=== PATIENT | female | born 1935 | race Caucasian/White ===

== ENCOUNTER 2020-06-20 10:24 | Outpatient (CLI) | payer MEDICARE, BC, SELFPAY ==
--- NOTE | ~2020-06-20 | MM_ITS ---
EXAMINATION: MM screening mathew BI w dominique HISTORY: Screening mammogram TECHNIQUE: Craniocaudal and mediolateral oblique 3-D tomosynthesis images were obtained and synthetic 2-D images were generated. CAD analysis was submitted and interpreted. COMPARISON: No prior mammogram is available for comparison at this institution. BREAST PARENCHYMAL COMPOSITION: There are scattered areas of fibroglandular density. FINDINGS: There is no evidence of suspicious mass, calcification, or architectural distortion to sugg est malignancy in either breast. IMPRESSION: 1. No mammographic evidence of malignancy. 2. Recommend routine screening mammography while the patient remains in good health. BI-RADS Category 1: Negative Reviewed, dictated and finalized at location A. IMPRESSION: 1. No mammographic evidence of malignancy. 2. Recommend routine screening mammography while the patient remains in good he alth. BI-RADS Category 1: Negative
== END 2020-06-20 10:25 | disposition home or self-care (01) ==
LOC: ANHIMG 10:28
PROVIDERS: PCP Internal Medicine; Visit Provider Internal Medicine
DX: Z12.31 Encounter for screening mammogram for malignant neoplasm of breast (principal)
CPT/HCPCS: 77063; 77067

== ENCOUNTER 2021-09-21 10:21 | Outpatient (CLI) | payer MEDICARE, BC, SELFPAY ==
--- NOTE | ~2021-09-21 | MM_ITS ---
EXAMINATION: MM screening mathew BI w dominique HISTORY: Screening mammogram TECHNIQUE: Craniocaudal and mediolateral oblique 3-D tomosynthesis images were obtained and synthetic 2-D images were generated. CAD analysis was submitted and interpreted. COMPARISON: 06/20/2020 BREAST PARENCHYMAL COMPOSITION: There are scattered areas of fibroglandular density. FINDINGS: There is no evidence of suspicious mass, calcification, or architectural distortion to sugg est malignancy in either breast. There has been no suspicious interval change. IMPRESSION: 1. No mammographic evidence of malignancy. 2. Recommend routine screening mammography while the patient remains in good health. BI-RADS Category 2: Benign finding(s). Reviewed, dictated and finalized at location A. [employer] IMPRESSION: 1. No mammographic evidence of malignancy. 2. Recommend routine screening mammography while the patient remains in good he alth. BI-RADS Category 2: Benign finding(s).
== END 2021-09-21 10:22 | disposition home or self-care (01) ==
LOC: ANHIMG 10:23
PROVIDERS: PCP Internal Medicine; Visit Provider Internal Medicine
DX: Z12.31 Encounter for screening mammogram for malignant neoplasm of breast (principal)
CPT/HCPCS: 77063; 77067

== ENCOUNTER 2022-06-28 08:56 | Emergency (ER) | payer MEDICARE, BC, SELFPAY ==
[2022-06-28] VITALS (9 sets, daily range): BP systolic 125–140; BP diastolic 65–81; PULSE 77–102; RESP 14–20; TEMP 36.6; O2SAT 96–100
--- NOTE | ~2022-06-28 | XR_ITS ---
EXAMINATION: XR chest 2V DATE: 06/28/2022 10:21 INDICATION: Heart palpitations TECHNIQUE: AP and lateral views of the chest are obtained. COMPARISON: None available FINDINGS: There is scarring in the lung apices. The lungs are free of acute opacities. No pleural eff usion or pneumothorax. The cardiomediastinal silhouette is normal. There is mild thoracic spondylosis . IMPRESSION: 1. No acute cardiopulmonary abnormality. Reviewed, dictated and finalized at location A.
--- NOTE | 2022-06-28 09:01 | ECG_ITS ---
Measurements Intervals [place] Rate: 100 P: 76 [place]: 136 QRS: -50 QRSD: 139 T: 95 QT: 366 QTc: 472 Interpretive Statements SINUS TACHYCARDIA LEFT AXIS DEVIATION [QRS AXIS < -30] LEFT BUNDLE BRANCH BLOCK [120+ ms QRS DURATION, 80+ ms Q/S IN V1/V2, 85+ ms R IN I/aVL/V5/V6] NO PREVIOUS ECG AVAILABLE FOR COMPARISON Electronically Signed On 06-29-2022 13:02:36 CDT by Mecca Boyer M.D.
--- NOTE | 2022-06-28 09:14 | ED.ARRPALP ---
HPI - Arrhythmia/Palpitations General Chief Complaint: Arrhythmia/Palpitations Stated Complaint: HEART PALPATATIONS Time Seen by Provider: 06/28/22 09:09 Source: patient Mode of arrival: ambulatory Limitations: no limitations History of Present Illness HPI narrative: Patient is an 86-year-old female presents the ED with palpitations. Patient reports she woke up this morning around 715 and typically takes her blood pressures in the morning. Her BP was elevated this morning with her diastolic BP being over 100. She also noted her pulse to be in the 150s at that time. She checked her HR several more times and noted it ranged from 80-110s. She states she could feel her heart racing, but denied any other symptoms. Denies chest pain, difficulty breathing, cough, cold symptoms, fevers, abdominal pain, nausea, vomiting, dizziness, lightheadedness, BLE pain or edema. Patient states she feels fine currently. Patient sees Dr. Junior, cardiology with [facility]. She states she wore a Holter monitor in November of this year for 2 weeks which was unremarkable. Patient is on Eliquis BID for AFIB. Related Data Allergies Allergy/AdvReac Type Severity Reaction Status Date / Time Sulfa (Sulfonamide AdvReac Swelling Verified 06/28/22 09:07 Antibiotics) of Lip/Tongue/Throat Review of Systems Review of Systems: CONSTITUTIONAL: Denies fever, chills, or sweats. ENT: Denies rhinorrhea, congestion, sore throat. CARDIOVASCULAR: Reports racing palpitations. Denies chest pain, BLE edema. RESPIRATORY: Denies cough or dyspnea. GASTROINTESTINAL: Denies abdominal pain, nausea, vomiting. MUSCULOSKELETAL: Denies back pain, joint pain, BLE pain. NEUROLOGIC: Denies dizziness, lightheadedness, headache, numbness, or weakness. All systems reviewed & are unremarkable except as noted in HPI and below PMFSH Past Medical History Medical History (Updated 06/28/22 @ 13:25 by Alicia Murguia PA-C) History of pneumonia HLD (hyperlipidemia) HTN (hypertension) LBBB (left bundle branch block) Lymphoma Paroxysmal A-fib Surgical History Surgical History (Updated 06/28/22 @ 10:25 by Alicia Murguia PA-C) History of lymph node biopsy Social History Social History (Updated 06/28/22 @ 10:25 by Alicia Murguia PA-C) Smoking status: Never smoker Exam Narrative: GENERAL: Well appearing, well-nourished, non-toxic, in no acute distress. HEAD: Normocephalic, atraumatic. NECK: Supple. No adenopathy, no masses. RESPIRATORY: Airway patent, respirations nonlabored. No distress. Clear to auscultation bilaterally, no rales, rhonchi, wheezing. CARDIOVASCULAR: Regular rate and rhythm without murmurs, rubs, or gallops. Peripheral pulses 2+ and equal bilaterally. ABDOMINAL: Soft, nontender, nondistended, no hepatosplenomegaly. Normoactive BS. MUSCULOSKELETAL: Moves all extremities. Strength/ROM intact without gross deformities or TTP. No edema. No calf tenderness. SKIN: Warm, dry, normal color. No rashes. NEURO: A&O X3. Speech clear. Cranial nerves II-XII grossly intact. Steady gait. No ataxic movements. PSYCHIATRIC: Appropriate mood and affect. Normal interaction. Course Consultations Consultation #1: Discussed case w/ Dr. Garzon, cardiology educational institution curator for Dr. Junior. Per patient's records, she has Hx of paroxysmal AFIB. Recommended increasing Metoprolol to 25mg daily. Follow in office. Date: 06/28/22 Time: 11:54 Vital Signs Vital signs: Vital Signs Temperature 97.8 F 06/28/22 09:01 Pulse Rate 98 06/28/22 09:01 Respiratory Rate 18 06/28/22 09:01 Blood Pressure 137/81 06/28/22 09:01 Pulse Oximetry 98 06/28/22 09:01 Oxygen Delivery Room Air 06/28/22 09:01 Temperature 97.8 F 06/28/22 09:01 Pulse Rate 77 06/28/22 14:44 Respiratory Rate 16 06/28/22 14:44 Blood Pressure 140/65 06/28/22 14:44 Pulse Oximetry 100 06/28/22 14:44 Oxygen Delivery Room Air 06/28/22 09:01 ANGELA - Ar
[2022-06-28 09:25] LABS: Basophils Percent Auto 0.7 % (0.2-1.2); Eosinophils Absolute Auto 0.1 K/mm3 (0-0.3); Eosinophils Percent Auto 1.5 % (0-4.4); Hemoglobin 13.6 g/dL (12.0-15.0); Immature Granulocyte Absolute 0.01 K/mm3 (0.00-0.031); Immature Granulocyte Percent A 0.2 % (0-0.5); Lymphocytes Absolute Auto 1.67 K/mm3 (0.9-3.2); Lymphocytes Percent Auto 28.1 % (18.3-44.2); Mean Corpuscular HGB Conc 33.2 g/dl (32-36); Mean Corpuscular Hemoglobin 31.3 pg (26-34); Mean Corpuscular Volume 94.5 fl (80-100); Mean Platelet Volume 9.4 fl (7.4-10.4); Monocytes Absolute Auto 0.7 K/mm3 (0.1-0.6); Monocytes Percent Auto 10.9 % (2.6-8.5); Neutrophils Absolute Auto 3.5 K/mm3 (1.3-6.7); Neutrophils Percent Auto 58.6 % (45.5-73.1); Platelet Count Result 144 k/mm3 (150-375); Red Blood Count 4.34 M/mm3 (4.2-5.4); Red Cell Distribution Width 13.4 % (11.5-14.5); White Blood Count 5.9 K/mm3 (4.5-10.0)
[2022-06-28 09:34] LABS: Alanine Aminotransferase 21 U/L (6-35); Albumin Level 3.9 g/dL (3.5-5.1); Alkaline Phosphatase 77 U/L (38-126); Anion Gap 10 mmol/L (8-16); Aspartate Amino Transferase 27 U/L (14-36); Bilirubin,Total 0.6 mg/dL (0.2-1.3); Blood Urea Nitrogen 14 mg/dL (7-17); Calcium 8.9 mg/dL (8.4-10.2); Carbon Dioxide 27 mmol/L (22-30); Chloride 103 mmol/L (98-107); Estimated CRCL calculation 46 ml/min; Estimated Glomerular Filt Rate > 60; Glucose 101 mg/dL (65-110); Lipase 132 U/L (23-300); Sodium 140 mmol/L (137-145)
[2022-06-28 09:35] LABS: Magnesium 1.8 mg/dL (1.6-2.3)
[2022-06-28 09:44] LABS: INR 1.1; Prothrombin Time 13.9 Seconds (11.1-14.7)
[2022-06-28 09:45] LABS: Partial Thromboplastin Time 26.6 SECONDS (22.3-36.8); Troponin I 0.013 ng/mL (0.000-0.034)
[2022-06-28 13:06] LABS: Troponin I 0.014 ng/mL (0.000-0.034)
[2022-06-28] MEDS: METOPROLOL SUCCINATE EXT REL 12.5 MG TABCR PO (13:13)
== END 2022-06-28 14:45 | disposition home or self-care (01) ==
PROVIDERS: Physician Assistant; Emergency Provider Emergency Medicine; PCP Internal Medicine
DX: R00.2 Palpitations (principal); I48.0 Paroxysmal atrial fibrillation; I10 Essential (primary) hypertension; E78.5 Hyperlipidemia, unspecified; I44.7 Left bundle-branch block, unspecified; Z79.01 Long term (current) use of anticoagulants; Z85.72 Personal history of non-Hodgkin lymphomas
CPT/HCPCS: 36415; 71046; 80053; 83690; 83735; 84484; 85025; 85610; 85730; 93005; 99284; A9270

== ENCOUNTER 2023-03-01 11:41 | Emergency (ER) | payer MEDICARE, BC, SELFPAY ==
[2023-03-01] VITALS (17 sets, daily range): BP systolic 155–184; BP diastolic 71–127; PULSE 58–77; RESP 10–20; TEMP 36.6; O2SAT 91–100
--- NOTE | ~2023-03-01 | XR_ITS ---
XR chest 1V portable 03/01/2023 13:29 Indication: Vertigo and lightheadedness Procedure: AP portable chest Comparison: 06/28/2022 Findings: Heart size normal. No focal air space disease, pulmonary edema, pleural effusion or suspect ed pneumothorax. No acute osseous abnormality. Impression: 1: No acute cardiopulmonary disease. Reviewed, dictated and finalized at location L. Impression: 1: No acute cardiopulmonary disease.
--- NOTE | ~2023-03-01 | CT_ITS ---
EXAMINATION: CTA brain carotid DATE: 03/01/2023 14:33 INDICATION: Vertigo. Dizziness. TECHNIQUE: Computed tomographic angiography (CTA) of the head was performed without and with 100 mL O mnipaque-350 intravenous contrast. CTA of the neck was performed with intravenous contrast. Automated exposure control and iterative reconstruction technique were employed. The dose-length product was 1 783.29 mGy-cm. Maximum intensity projection and volume rendered 3D-reconstructions were created by brittany guadalupe technologist on a separate workstation. COMPARISON: None. FINDINGS: HEAD CTA: There is no intracranial hemorrhage, acute infarction, or abnormal intracranial mass lesion . The cerebellar tonsils extend 8 mm inferior to foramen magnum, consistent with Chiari I malformatio n. There are scattered areas of low attenuation in the cerebral white matter, which is within normal limits for the patient's age. The ventricles are normal in size. There is mild mucosal thickening in the paranasal sinuses. The mastoid air cells are normal. There are likely changes of ocular lens repl acement surgeries. The vertebral arteries are codominant. There is no significant stenosis of basilar artery or the posterior cerebral arteries. There is no significant stenosis of the intracranial inte rnal carotid arteries or anterior or middle cerebral arteries. Anterior communicating artery is kenya l. The posterior communicating arteries are normal. There is no aneurysm. NECK CTA: There is mild scarring at the lung apices. There are no pathologically enlarged lymph nodes . Left vertebral artery arises from aortic arch. There is no significant stenosis of the vertebral ar teries. There is mild plaque in proximal right internal carotid artery. There is 0% stenosis of the p roximal right internal carotid artery relative to normal distal artery lumen diameter (NASCET criteri a). There is 0% stenosis of the proximal left internal carotid artery relative to normal distal arter y lumen diameter. There is mild cervical spondylosis. IMPRESSION: 1. Chiari I malformation. 2. No aneurysm or significant intracranial arterial stenosis. 3. 0% stenosis of the proximal internal carotid arteries relative to normal distal artery lumen diame ters (NASCET criteria). Reviewed, dictated and finalized at location A. IMPRESSION: 1. Chiari I malformation. 2. No aneurysm or significant intracranial arterial stenosis. 3. 0% stenosis of the proximal internal carotid arteries relative to normal dis denise artery lumen diameters (NASCET criteria).
--- NOTE | 2023-03-01 11:54 | ECG_ITS ---
Measurements Intervals [place] Rate: 58 P: 69 [place]: 186 QRS: -49 QRSD: 165 T: 22 QT: 488 QTc: 480 Interpretive Statements SINUS BRADYCARDIA MARKED LEFT AXIS DEVIATION [QRS AXIS < -30] LEFT BUNDLE BRANCH BLOCK [120+ ms QRS DURATION, 80+ ms Q/S IN V1/V2, 85+ ms R IN I/aVL/V5/V6] COMPARED TO ECG 06/28/2022 09:03:58 SINUS BRADYCARDIA NOW PRESENT Electronically Signed On 03-01-2023 17:07:57 CDT by Nik Kim M.D.
--- NOTE | 2023-03-01 12:36 | ED.DIZZY ---
HPI - Dizziness General Chief Complaint: Dizziness Stated Complaint: dizzy/ nausea Time Seen by Provider: 03/01/23 12:15 History of Present Illness HPI Narrative: Patient is an 87-year-old female with a history of A-fib on Eliquis, hypertension, hyperlipidemia presenting with an episode of vertigo. Patient states that she was at the grocery store when she suddenly felt lightheaded and like the room was spinning. States that she became diaphoretic. Someone helped her sit down but the sensation lasted for 5 to 10 minutes so 911 was called. Patient states that the feeling resolved after about 10 minutes. States that currently she feels a little bit nauseated. She denies any numbness or weakness. No speech difficulties. No chest pain or shortness of breath. Denies further complaints. Related Data Allergies Allergy/AdvReac Type Severity Reaction Status Date / Time Sulfa (Sulfonamide Allergy Severe Swelling Verified 03/01/23 12:46 Antibiotics) of Lip/Tongue/Throat Review of Systems Review of Systems: All systems reviewed & are unremarkable except as noted in HPI and below PMFSH Past Medical History Medical History History of pneumonia HLD (hyperlipidemia) HTN (hypertension) LBBB (left bundle branch block) Lymphoma Paroxysmal A-fib Surgical History Surgical History History of lymph node biopsy Social History Social History Smoking status: Never smoker Exam Narrative: GENERAL: Well-appearing, well-nourished, and in no acute distress. HEAD: Normocephalic, atraumatic. EYES: PERRLA and EOMI. ENT: Nares clear, no rhinorrhea or epistaxis. Mucous membranes moist. NECK: Supple. CHEST: Clear to auscultation. No respiratory distress. HEART: Bradycardic, regular rhythm ABDOMEN: Soft, nontender, nondistended EXTREMITIES: Normal range of motion. No edema. SKIN: Warm, dry, no rash. NEURO: No focal deficits. Alert and oriented x3. No pronator drift, [id number] intact bilaterally, 5 out of 5 strength in all extremities, no sensory deficits, no aphasia or dysarthria PSYCH: Normal mood and affect. Course Vital Signs Vital signs: Vital Signs Temperature 97.8 F 03/01/23 11:42 Pulse Rate 61 03/01/23 11:42 Respiratory Rate 18 03/01/23 11:42 Blood Pressure 173/85 H 03/01/23 11:42 Oxygen Delivery Room Air 03/01/23 11:42 Temperature 97.8 F 03/01/23 11:42 Pulse Rate 77 03/01/23 16:06 Respiratory Rate 12 03/01/23 16:06 Blood Pressure 183/71 H 03/01/23 16:06 Pulse Oximetry 99 03/01/23 16:06 Oxygen Delivery Room Air 03/01/23 11:42 MDM - Dizziness MDM Narrative Medical decision making narrative: Patient is an 87-year-old female presenting after an episode of vertigo. Patient is bradycardic and hypertensive on arrival, otherwise vitals are within normal limits. Patient is well-appearing and in no acute distress. Exam remarkable for the above. Orthostatic vital signs positive on arrival. EKG per my interpretation shows sinus bradycardia, left axis deviation, left bundle branch block, no ST elevations or depressions. Blood work is unremarkable. Magnesium is normal. Troponin is undetectable. CTA brain carotid shows no acute abnormalities. There is 0% stenosis in bilateral carotids. 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 Patient has received IV fluids. She states that she has not had any recurrence of her symptoms. States that she was able to ambulate to the bathroom normally. Discussed the reassuring work-up. Offered admission for observation and MRI but patient declines at this time which I think is reasonable. Advised that she follow-up closely with her PCP. Strict return precautions given. Patient voiced understanding and is agreeable with plan. Discharged in stable condition. Differenti
[2023-03-01] MEDS: SODIUM CHLORIDE 0.9% IV 1,000 ML 999 ML IV CONT (12:54)
[2023-03-01] MEDS: ONDANSETRON INJ 4 MG/2 ML VIAL IV PUSH (12:54)
[2023-03-01 13:45] LABS: Basophils Absolute Auto 0.1 K/mm3 (0.0-0.1); Basophils Percent Auto 0.9 % (0.2-1.2); Eosinophils Percent Auto 0.7 % (0-4.4); Hemoglobin 12.5 g/dL (12.0-15.0); Immature Granulocyte Absolute 0.03 K/mm3 (0.00-0.031); Immature Granulocyte Percent A 0.5 % (0-0.5); Lymphocytes Absolute Auto 1.07 K/mm3 (0.9-3.2); Mean Corpuscular HGB Conc 32.9 g/dl (32-36); Mean Corpuscular Hemoglobin 31.6 pg (26-34); Mean Corpuscular Volume 96.2 fl (80-100); Mean Platelet Volume 9.3 fl (7.4-10.4); Monocytes Absolute Auto 0.5 K/mm3 (0.1-0.6); Monocytes Percent Auto 9.6 % (2.6-8.5); Neutrophils Absolute Auto 3.9 K/mm3 (1.3-6.7); Neutrophils Percent Auto 69.3 % (45.5-73.1); Platelet Count Result 149 k/mm3 (150-375); Red Blood Count 3.95 M/mm3 (4.2-5.4); Red Cell Distribution Width 13.5 % (11.5-14.5); White Blood Count 5.6 K/mm3 (4.5-10.0)
[2023-03-01 13:54] LABS: Alanine Aminotransferase 21 U/L (6-35); Albumin Level 3.8 g/dL (3.5-5.1); Alkaline Phosphatase 77 U/L (38-126); Anion Gap 3 mmol/L (8-16); Aspartate Amino Transferase 29 U/L (14-36); Bilirubin,Total 0.5 mg/dL (0.2-1.3); Blood Urea Nitrogen 16 mg/dL (7-17); Calcium 8.3 mg/dL (8.4-10.2); Carbon Dioxide 27 mmol/L (22-30); Chloride 102 mmol/L (98-107); Estimated Glomerular Filt Rate > 60; Glucose 98 mg/dL (65-110); Lipase 109 U/L (23-300); Sodium 132 mmol/L (137-145)
[2023-03-01 13:56] LABS: INR 1.1; Prothrombin Time 15.1 Seconds (11.1-14.7)
[2023-03-01 13:57] LABS: Partial Thromboplastin Time 20.6 SECONDS (22.3-36.8)
[2023-03-01 14:06] LABS: Troponin I < 0.012 ng/mL (0.000-0.034)
== END 2023-03-01 16:20 | disposition home or self-care (01) ==
PROVIDERS: Emergency Provider Emergency Medicine; PCP Internal Medicine
DX: I95.1 Orthostatic hypotension (principal); R42 Dizziness and giddiness; I48.0 Paroxysmal atrial fibrillation; I10 Essential (primary) hypertension; E78.5 Hyperlipidemia, unspecified; Z87.01 Personal history of pneumonia (recurrent); Z79.01 Long term (current) use of anticoagulants; Z85.72 Personal history of non-Hodgkin lymphomas; R00.1 Bradycardia, unspecified; I44.7 Left bundle-branch block, unspecified
CPT/HCPCS: 36415; 70496; 70498; 71045; 80053; 83690; 83735; 84484; 85025; 85055; 85610; 85730; 93005; 96361; 96374; 99284; J2405; J7030; Q9967

== ENCOUNTER 2023-07-03 11:52 | Emergency (ER) | payer MEDICARE, BC, SELFPAY ==
[2023-07-03 11:56] VITALS: BP 134/61; PULSE 70; RESP 17; TEMP 36.5; O2SAT 100
--- NOTE | 2023-07-03 12:52 | ED.FEMALEGU ---
HPI - Female Genitourinary General Chief complaint: Urogenital-Female Stated complaint: difficulty urinating Time Seen by Provider: 07/03/23 12:00 Source: patient Limitations: no limitations History of Present Illness HPI Narrative: Patient is a 87 year old female who notes difficulty and pain with urinating. She also feels a low abdominal pressure, usually not at rest, only when attempting to urinate. LBM regular, does not have to strain. Scant voiding recently. She has had a UA at PCP which was negative; recently prescribed amoxicillin by PCP for unclear reasons. She also had blood work that showed mild hyponatremia by report. Denies fevers, new medications. Not taking Benadryl or other medications to suggest anticholinergic urinary retention. No hematuria, only dysuria. No vision changes other than diagnosed with ocular migraines. No history of UTIs. PCP prescribed her Premaran recnetly but has not filled prescription or started taking it. Not sexually active; no insertion of foreign body. Meds: amiodarone, stool softener, Elliquis. Previously took cetirizine but quit this 1 month ago. 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 Paroxysmal A-fib Surgical History Surgical History History of lymph node biopsy Social History Social History (Updated 07/04/23 @ 12:24 by Coleen Avila MD) Smoking status: Never smoker Alcohol use details: denies Other substance usage details: denies Exam Const: General: healthy appearing, no acute distress and alert Nutritional Appearance: well nourished Orientation/consciousness: patient oriented x3 and No confusion Limitations: no limitations HENMT: Head: normal to inspection Face and sinus: normal facial exam Mouth: Yes dry mucous membranes (tacky) Eyes: Conjunctivae: conjunctivae normal Cardio: Rate: regular rate GI: Inspection: non-distended GI Palp: Yes Soft to palpation, No Tenderness to palpation present (GI), No Guarding due to palpation present (GI), No Rigid due to palpation and No Rebound tenderness present Other: Mild suprapubic tenderness to palpation : External Female Exam: normal external appearance Speculum Exam - Vagina: normal vaginal discharge, no foreign bodies and No vaginal bleeding OB/external & speculum: no herpetic lesions Other: No significant erythema. Superficial sub-cm ulceration at 8' or 9'oclock position just opening of vaginal vault, not bleeding Skin: General skin exam: normal color and no jaundice Neuro: General: patient oriented x3 Extrem: General: normal to inspection Psych: Appearance: grossly normal Mental Status: mental status grossly normal Affect: normal affect Attitude: cooperative Course Course Emergency Course: Patient states she last urinated a few hours prior to arrival. Bedside bladder scan by RN with maximum 78mL seen. Vital Signs Vital signs: Vital Signs Temperature 97.7 F 07/03/23 11:56 Pulse Rate 70 07/03/23 11:56 Respiratory Rate 17 07/03/23 11:56 Blood Pressure 134/61 07/03/23 11:56 Pulse Oximetry 100 07/03/23 11:56 Oxygen Delivery Room Air 07/03/23 11:56 Temperature 97.7 F 07/03/23 11:56 Pulse Rate 74 07/03/23 14:06 Respiratory Rate 16 07/03/23 14:06 Blood Pressure 142/86 H 07/03/23 14:06 Pulse Oximetry 98 07/03/23 14:06 Oxygen Delivery Room Air 07/03/23
[2023-07-03 13:15] LABS: Appearance Urine Cloudy (Clear); Bacteria Urine None Seen /hpf; Bilirubin Urine Negative (Negative); Blood Urine 2+ (Negative); Color Urine Yellow (Yellow); Glucose Urine UA Negative (Negative); Ketones Urine Negative (Negative); Leukocyte Esterase Ur 3+ LEU/UL (Negative); Need Manual Microscopic Reviewed; Nitrate Urine Negative (Negative); Protein Urine Negative (Negative); Squamous Epithelial Cell Urine Moderate /hpf (Few); Urobilinogen Urine 0.2 mg/dL (<2.0); WBC Urine 51-100 /hpf; pH Urine 6.5 (5.0-9.0)
[2023-07-03 13:16] LABS: Add Urine Microscopic? YES
[2023-07-03] MEDS: cefTRIAXone 1 GM VIAL IM (13:50)
[2023-07-03] MEDS: LIDOCAINE HCL 1% LOCAL INJ 10 ML VIAL (13:50)
[2023-07-03 14:06] VITALS: BP 142/86; PULSE 74; RESP 16; O2SAT 98
== END 2023-07-03 14:07 | disposition home or self-care (01) ==
PROVIDERS: Emergency Provider Student in an Organized Health Care Education/Training Program; PCP Internal Medicine
DX: N95.2 Postmenopausal atrophic vaginitis (principal); N39.0 Urinary tract infection, site not specified; I10 Essential (primary) hypertension; I48.91 Unspecified atrial fibrillation
CPT/HCPCS: 81001; 87086; 96372; 99284; J0696

== ENCOUNTER 2023-10-21 06:23 | Observation (INO) | payer MEDICARE, BC, SELFPAY ==
[2023-10-21] VITALS (24 sets, daily range): BP systolic 126–175; BP diastolic 53–111; PULSE 70–86; RESP 14–20; TEMP 36.6–37.1; O2SAT 91–100; BMI 22.8
--- NOTE | 2023-10-21 | ECHO_ITS ---
Patient Info Name: Agustina Cordova Age: 87 years : 1935 Gender: Female Ht: 61 in Wt: 121 lbs BSA: 1.54 m2 HR: 78 bpm BP: 164 / 59 mmHg Heart Rhythm: Sinus Rhythm Technical Quality: Good Exam Date: 10/21/2023 2:05 PM Exam Location: Echo Lab Patient Status: Outpatient Admit Date: 10/21/2023 Staff Ordering Physician: Brandi Morrissey APRN Bottom Turning Lathe Tender: Amara Hernandez RDCS Attending Provider: Shayy Hogue MD Referring Physician: Yuni ORELLANA; Exam Type: CA echo doppler color flow Study Info Indications - c/f new chf Complete two-dimensional, color flow and Doppler transthoracic echocardiogram is performed. Summary 1. Complete two-dimensional, color flow and Doppler transthoracic echocardiogram is performed. 2. Left ventricular chamber dimension is normal. 3. Left ventricular systolic function is mildly reduced, estimated at 45-50%. 4. There is mild concentric increased left ventricular wall thickness. 5. Left ventricular septal wall motion is abnormal with septal motion related to bundle branch block. 6. The left ventricular diastolic function is grade I diastolic dysfunction. 7. E/e' 24 is significantly elevated. 8. Left atrial chamber dimension is mildly enlarged. 9. There is mild aortic valve sclerosis. 10. The mitral valve has mildly calcified annulus. 11. There is trace tricuspid valve regurgitation. 12. No pulmonary hypertension, estimated pulmonary arterial systolic pressure is 29 mmHg. 13. Pleural effusion noted. Left Ventricle E/e' 24 is significantly elevated. Left ventricular chamber dimension is normal. Left ventricular systolic function is mildly reduced, estimated at 45-50%. There is mild concentric increased left ventricular wall thickness. Left ventricular septal wall motion is abnormal with septal motion related to bundle branch block. The left ventricular diastolic function is grade I diastolic dysfunction. Right Ventricle Right ventricular systolic function is normal and with normal TAPSE 2.2 cm. Right ventricular chamber dimension is normal. Left Atria Left atrial chamber dimension is mildly enlarged. Right Atria Right atrial chamber dimension is normal. Aortic Valve The aortic valve is trileaflet. There is mild aortic valve sclerosis. There is no aortic valve stenosis. There is no aortic valve regurgitation. Pulmonic Valve There is no pulmonic regurgitation. Mitral Valve The mitral valve has mildly calcified annulus. There is no mitral valve stenosis. There is no mitral valve regurgitation. Tricuspid Valve There is trace tricuspid valve regurgitation. No pulmonary hypertension, estimated pulmonary arterial systolic pressure is 29 mmHg. Pericardium/Pleural Pleural effusion noted. There is no pericardial effusion. Inferior Vena Cava Normal inferior vena cava with >50% collapse upon inspiration consistent with normal right atrial pressure, 5 mmHg. Aorta The aortic root size at the sinus of Valsalva is normal. Left Ventricular Outflow Tract Name Value Normal LVOT 2D LVOT Diameter 2.0 cm LVOT Doppler LVOT Peak Gradient 2 mmHg LVOT Mean Gradient 1 mmHg LVOT VTI
--- NOTE | ~2023-10-21 | XR_ITS ---
Clinical Indication: Shortness of breath PA and lateral views of the chest: Comparison: 03/01/2023 Findings: Small bilateral pleural effusions are present. There is bibasilar interstitial prominence.. Cardiomediastinal silhouette is within normal limits. Bones and soft tissues are unremarkable. Impression: Small bilateral pleural effusions. Bibasilar chronic interstitial disease versus interstitial edema. Reviewed, dictated and finalized at location . NICAL TRAINING MANAGER Impression: Small bilateral pleural effusions. Bibasilar chronic interstitial disease versus interstitial edema.
--- NOTE | ~2023-10-21 | CT_ITS ---
Clinical Indication: Shortness of breath CT Scan of the Chest with Contrast: Technique: Contiguous sections were acquired throughout the chest after intravenous administration of 100 cc of Omnipaque 350. Dose reduction technique was used on this scan by utilizing automated expos ure control and iterative reconstruction technique. The dose-length product (DLP) was 362.29 mGy-cm. Findings: There is no evidence of any significant mediastinal, hilar or axillary lymphadenopathy. There is no f illing defect in the pulmonary arterial tree to suggest pulmonary embolus. There is no evidence of ao rtic dissection or aneurysm. No pericardial effusion. There are moderate bilateral pleural effusions. There is mild interstitial pulmonary edema and probab le minimal patchy groundglass pulmonary edema. Images through the upper abdomen reveal no abnormalities. Impression: No evidence of pulmonary embolus, aortic dissection, or aortic aneurysm. Moderate bilateral pleural effusions with minimal pulmonary edema. Reviewed, dictated and finalized at [facility]. RONMENTAL CONTROL ADMINISTRATOR Impression: No evidence of pulmonary embolus, aortic dissection, or aortic aneurysm. Moderate bilateral pleural effusions with minimal pulmonary edema.
--- NOTE | 2023-10-21 06:27 | ECG_ITS ---
Measurements Intervals [place] Rate: 76 P: 69 [place]: 194 QRS: 0 QRSD: 165 T: 106 QT: 429 QTc: 482 Interpretive Statements SINUS RHYTHM LEFT BUNDLE BRANCH BLOCK [120+ ms QRS DURATION, 80+ ms Q/S IN V1/V2, 85+ ms R IN I/aVL/V5/V6] ABNORMAL ECG COMPARED TO ECG 03/01/2023 12:06:02 NO DIFFERENCE Electronically Signed On 10-21-2023 7:17:16 DIRECTOR OF IT OPERATIONS by Caleb Cummins M.D.
[2023-10-21 06:55] LABS: Basophils Absolute Auto 0.1 K/mm3 (0.0-0.1); Basophils Percent Auto 0.7 % (0.2-1.2); Eosinophils Absolute Auto 0.1 K/mm3 (0-0.3); Eosinophils Percent Auto 1.4 % (0-4.4); Hematocrit 36.1 % (37.0-47.0); Hemoglobin 11.4 g/dL (12.0-15.0); Immature Granulocyte Absolute 0.02 K/mm3 (0.00-0.031); Immature Granulocyte Percent A 0.2 % (0-0.5); Lymphocytes Absolute Auto 2.11 K/mm3 (0.9-3.2); Lymphocytes Percent Auto 25.4 % (18.3-44.2); Mean Corpuscular HGB Conc 31.6 g/dl (32-36); Mean Corpuscular Hemoglobin 29.2 pg (26-34); Mean Corpuscular Volume 92.3 fl (80-100); Mean Platelet Volume 9.8 fl (7.4-10.4); Monocytes Absolute Auto 0.8 K/mm3 (0.1-0.6); Monocytes Percent Auto 10.1 % (2.6-8.5); Neutrophils Absolute Auto 5.2 K/mm3 (1.3-6.7); Neutrophils Percent Auto 62.2 % (45.5-73.1); Platelet Count Result 174 k/mm3 (150-375); Red Blood Count 3.91 M/mm3 (4.2-5.4); Red Cell Distribution Width 14.4 % (11.5-14.5); White Blood Count 8.3 K/mm3 (4.5-10.0)
[2023-10-21 07:04] LABS: Alanine Aminotransferase 32 U/L (6-35); Albumin Level 3.7 g/dL (3.5-5.1); Alkaline Phosphatase 84 U/L (38-126); Anion Gap 7 mmol/L (8-16); Aspartate Amino Transferase 41 U/L (14-36); Bilirubin,Total 0.6 mg/dL (0.2-1.3); Blood Urea Nitrogen 19 mg/dL (7-17); Calcium 8.9 mg/dL (8.4-10.2); Carbon Dioxide 25 mmol/L (22-30); Chloride 103 mmol/L (98-107); Estimated CRCL calculation 34 ml/min; Estimated Glomerular Filt Rate 60; Glucose 99 mg/dL (65-110); Lipase 138 U/L (23-300); Potassium 4.4 mmol/L (3.4-5.0); Sodium 135 mmol/L (137-145)
[2023-10-21 07:15] LABS: Troponin I < 0.012 ng/mL (0.000-0.034)
[2023-10-21 07:20] LABS: Prothrombin Time 13.6 Seconds (11.1-14.7)
[2023-10-21 07:21] LABS: Partial Thromboplastin Time 25.1 SECONDS (22.3-36.8)
--- NOTE | 2023-10-21 07:34 | ED.SOB ---
HPI - SOB/Dyspnea General Chief Complaint: Shortness of Breath/Dyspnea Stated Complaint: cp, sob Time Seen by Provider: 10/21/23 07:34 Source: patient and EMS Mode of arrival: EMS History of Present Illness HPI Narrative: 87 years old white female lives alone, came from home by ambulance complaining of shortness of breath on exertion few hours prior to arrival to the emergency room. History of TIA, not on aspirin, currently on Eliquis for atrial fibrillation. She denies any fever, chills, nausea, vomiting, chest pain or back pain. 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 Paroxysmal A-fib Surgical History Surgical History History of lymph node biopsy Social History Social History Smoking status: Never smoker Alcohol use details: denies Other substance usage details: denies Exam Narrative: General appearance: Well-developed, well-nourished, anxious lady Skin: Normal color Head: Normocephalic, nontraumatic Eyes: Clear conjunctiva ENT: Oropharynx normal, ears normal, nose normal Neck: Supple, nontender Chest and respiratory: Airway patent, no respiratory distress, no accessory muscle use Heart: Irregular irregularity Abdomen: Soft, nontender, no organomegaly, quiet bowel sounds Vascular: Normal peripheral pulses, normal capillary refill. Musculoskeletal: Normal range of motion, nontender back Neurologic: Alert and oriented ?3, NUCLEAR MEDICINE PET CT TECHNOLOGIST is normal as tested, no gross motor deficit Course Vital Signs Vital signs: Vital Signs Temperature 36.8 C 10/21/23 06:47 Pulse Rate 85 10/21/23 06:47 Respiratory Rate 16 10/21/23 06:47 Blood Pressure 138/66 10/21/23 06:47 Pulse Oximetry 96 10/21/23 06:47 Oxygen Delivery Room Air 10/21/23 06:47 Temperature 36.8 C 10/21/23 06:47 Pulse Rate 81 10/21/23 10:32 Respiratory Rate 19 10/21/23 10:32 Blood Pressure 126/111 H 10/21/23 10:32 Pulse Oximetry 91 10/21/23 10:32 Oxygen Delivery Room Air 10/21/23 07:57 MDM - SOB/Dyspnea Lab Data 10/21/23 06:41 10/21/23 06:41 Labs: Lab Results 10/21/23 10/21/23 Range/Units 06:41 10:24 WBC 8.3 (4.5-10.0) K/mm3 RBC 3.91 L (4.2-5.4) M/mm3 Hgb 11.4 L (12.0-15.0) g/dL Hct 36.1 L (37.0-47.0) % MCV 92.3 (80-100) fl MCH 29.2 (26-34) pg MCHC 31.6 L (32-36) g/dl RDW 14.4 (11.5-14.5) % Plt Count 174 (150-375) k/mm3 MPV 9.8 (7.4-10.4) fl Immature Gran % (Auto) 0.2 (0-0.5) % Neut % (Auto) 62.2 (45.5-73.1) % Lymph % (Auto) 25.4 (18.3-44.2) % [place] % (Auto) 10.1 H (2.6-8.5) % Eos % (Auto) 1.4 (0-4.4) % Baso % (Auto) 0.7 (0.2-1.2) % Lymph # (Auto) 2.11 (0.9-3.2) K/mm3 [place] # (Auto) 0.8 H (0.1-0.6) K/mm3 Eos # (Auto) 0.1 (0-0.3) K/mm3 Baso # (Auto) 0.1 (0.0-0.1) K/mm3 Abs Immat Gran (auto) 0.02 (0.00-0.031) K/mm3 Absolute Neuts (auto) 5.2 (1.3-6.7) K/mm3 Absolute Nucleated RBC 0.
[2023-10-21 08:16] LABS: Alveolar/Arterial O2 Gradient 47.2 mmHg; Base Excess ABG 0.3 mEq/l (+/-2.0); Device ROOM AIR; Fractional Inspired Oxygen 21 %; HCO3 ABG 24.6 mEq/l (22.0-26.0); Oxygen Content ABG 14.7 %vol (16.0-22.0); Oxygen Saturation ABG 90.4 % (95.0-100.0); Oxyhemoglobin 89.2 % THb (90.0-100.0); PCO2 ABG 38.2 mmHg (35.0-45.0); PO2 ABG 56.8 mmHg (80.0-100.0); Site Drawn LEFT BRACHIAL; Total Hemoglobin 11.7 g/dL (12.0-18.0); pH ABG 7.426 (7.350-7.450)
[2023-10-21 08:22] LABS: NT Pro B Type Natriuretic Pept 1940 pg/mL (19.9-100)
[2023-10-21] MEDS: FUROSEMIDE INJ 40 MG/4 ML VIAL IV PUSH (10:23)
--- NOTE | 2023-10-21 10:25 | ECG_ITS ---
Measurements Intervals [place] Rate: 79 P: 64 NC: 184 QRS: -37 QRSD: 161 T: 101 QT: 447 QTc: 515 Interpretive Statements SINUS RHYTHM LEFT AXIS DEVIATION [QRS AXIS < -30] LEFT BUNDLE BRANCH BLOCK [120+ ms QRS DURATION, 80+ ms Q/S IN V1/V2, 85+ ms R IN I/aVL/V5/V6] ABNORMAL ECG COMPARED TO ECG 10/21/2023 06:32:25 NO DIFFERENCE Electronically Signed On 10-21-2023 13:54:10 INSURANCE CODER by Caleb Cummins M.D.
[2023-10-21 10:56] LABS: Troponin I < 0.012 ng/mL (0.000-0.034)
--- NOTE | 2023-10-21 12:03 | ADMGEN ---
This patient, Agustina Cordova, was admitted to IMU Room 201-01. Patient/family oriented to hospital policies and general routines including ID bracelet, bed and alarms, visiting hours, pain management, procedures, bathroom and other care routines, personal items, smoking policy, room service/diet, and visiting hours. Information on how to activate the Rapid Response Team has been discussed. Patient/Family are encouraged to report perceived risks to care and to ask questions if they do not understand what they are told or what they should do.
--- NOTE | 2023-10-21 12:35 | PM.IMHP ---
H&P: HPI History of Present Illness Date/Time: 10/21/23 12:35 Chief Complaint: SOB Narrative: 87 y/o F presents here with SOB with PMH of HLD, HTN, LBBB, lymphoma (s/p chemo), thrush, esophageal stricture (s/p dilation), TIA, and pAfib on anti-coagulation. Patient presents here with SOB that acutely started last night. Patient noticed the SOB when she took a flight of stairs which normally does not wind her. Checked her HR which showed 90's, but typically she runs in the 70s or 80s with exertion due to being on amiodarone for AFib. Patient became concerned when she could hear a rattling coming from her chest and wheezing which she has previously experienced with PNA. Patient has been off BP medications for the last month. PCP recommended holding BP meds if systolic was less than 140. Patient continues to check BP everyday, states her systolic is typically highest in the morning 140's but reduces to 120-115's. Also endorsing dry cough for the past month without recent illness, fever, chills, or body aches. Had scope done yesterday at [facility] for reevaluation which showed no strictures but did show thrush (previously seen) that had not resolved with treatment. Had additional scope because she was continuing that have some epigastric pain that radiated in her upper back and lower throat pain. Fluconazole ordered, but has not started. Had had reduced appettie since she was intially diagnosed with thrush (6 weeks ago) and now feeling generalized weakness for the past week Initial VS at arrival: HR 85, 16 RR, 98% on RA, BP 142/86. ED workup revealed mild anemia with Hgb of 11.4, no leukocytosis, low O2 saturation on ABG at 90.4%, and elevated BNP at 1940. CXR showed small bilateral pleural effusions, bibasilar chronic interstitial disease v interstitial edema. CTA of chest showed no PE, dissection, hernia aneurysm, troponin <0.012 x2, and moderate bilateral pleural effusions with minimal pulmonary edema. EKG showed sinus rhythm with a LBBB, unchanged from prior. 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 Paroxysmal A-fib TIA (transient ischemic attack) Surgical History Surgical History History of lymph node biopsy Social History Social History Smoking status: Never smoker Alcohol intake: never Alcohol use details: denies Substance use: never Other substance usage details: denies Do You Feel Safe in your Home?: Yes Lack of Transportation: No Lack of Food: Never True Current Housing: I Have Housing Concerned About Future Housing: No Difficulty Paying Gas/Electric Bills: No Difficulty Paying for Meds: No Currently Unemployed: No Education: Decline to Answer Difficulty w/ Childcare or Family Care: No Spiritual care concerns: No Meds Home Medications and Allergies Home Medications Medication Instructions Recorded Confirmed Type acetaminophen 500 mg tablet 1,000 mg PO TID PRN Pain (Scale 10/21/23 10/21/23 History Score 1-3) amiodarone 200 mg tablet 200 mg PO DAILY 10/21/23 10/21/23 History apixaban 2.5 mg tablet (Eliquis) 2.5 mg PO Q12H 10/21/23 10/21/23 History cetirizine 5 mg tablet 5 mg PO HS 10/21/23 10/21/23 History cyanocobalamin (vitamin B-12) 1,000 mcg PO DAILY 10/21/23 10/21/23 History 1,000 mcg tablet fluconazole 200 mg tablet 200 mg PO DIRECTED 10/21/23 10/21/23 History fluticasone propionate 50 1 spray intranasal DAILY 10/21/23 10/21/23 History mcg/actuation nasal spray,suspension hydrocortisone 2.5 % topical cream 1 applic RECTAL DAILY PRN 10/21/23 10/21/23 Histor
[2023-10-21 13:14] LABS: Troponin I < 0.012 ng/mL (0.000-0.034)
--- NOTE | 2023-10-21 16:02 | PM.CNCAR ---
Assessment and Plan Assessment and plan (1) CHF (congestive heart failure): Code(s): I50.9 - Heart failure, unspecified Status: Acute Assessment and Plan: Acute on chronic combined systolic and diastolic heart failure. Probably due to over-hydration. NTproBNP 1,940. Per patient prior echo in May 2023 at [facility] with EF 47%. 10/21/23 Echo: EF 45-50%, mild LVH, grade I diastolic dysfunction (E/e' 24), mild LAE, trace TR. Advise to limit fluid intake to 1.5-2 l/day from 4 l/day she was drinking. Continue Lasix 20 mg IV BID. (2) Paroxysmal A-fib: Code(s): I48.0 - Paroxysmal atrial fibrillation Status: Acute Assessment and Plan: In sinus rhythm. On Eliquis and Amiodarone. (3) HTN (hypertension): Qualifiers: Hypertension type: primary hypertension Qualified Code(s): I10 - Essential (primary) hypertension Code(s): I10 - Essential (primary) hypertension Status: Acute Assessment and Plan: Stable. (4) HLD (hyperlipidemia): Code(s): E78.5 - Hyperlipidemia, unspecified Status: Acute Assessment and Plan: On Rosuvastatin. (5) LBBB (left bundle branch block): Code(s): I44.7 - Left bundle-branch block, unspecified Status: Acute Assessment and Plan: Chronic. History of Present Illness History of Present Illness Consult date/time: 10/21/23 16:02 Reason For Visit: CHF/Acute Hypoxic Respiratory Failure Narrative: 87 yr old woman presented to ER with sob. Her regular programs director is Dr. Junior at [facility]. She has a history of PAF on Amiodarone/Eliquis, hypertension, TIA, lymphoma s/p chemotherapy in February 2023, systolic dysfunction. Reports she had endoscopy procedure recently. She drinks about 4 liters of water a day. She noted ANN walking up a flight of stairs with faster HR than her usual at 90 bpm. When she lied back she heard rattling in her chest. Denies chest pain, palpitations, edema, dizziness. Review of Systems Constitutional: Constitutional: Reports as per HPI, Denies chills, Reports fatigue and Denies fever(s) Cardiovascular: Cardiovascular: Reports as per HPI, Denies chest pain and Denies irregular heart rhythm Respiratory: Respiratory: Reports as per HPI and Reports dyspnea Gastrointestinal: Gastrointestinal: Reports as per HPI and Denies abdominal pain Genitourinary: Genitourinary: Reports as per HPI and Denies dysuria Musculoskeletal: Musculoskeletal: Reports as per HPI Neurologic: Reports as per HPI, Denies dizziness and Denies syncope [facility] Past Medical History Medical History (Updated 10/21/23 @ 14:38 by Brandi Morrissey, INGA) Atrophic vaginitis History of pneumonia HLD (hyperlipidemia) HTN (hypertension) LBBB (left bundle branch block) 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 Paroxysmal A-fib TIA (transient ischemic attack) Surgical History Surgical History History of lymph node biopsy Social History Social History Smoking status: Never smoker Alcohol intake: never Alcohol use details: denies Substance use: never Other substance usage details: denies Do You Feel Safe in your Home?: Yes Lack of Transportation: No Lack of Food: Never True Current Housing: I Have Housing Concerned About Future Housing: No Difficulty Paying Gas/Electric Bills: No Difficulty Paying for Meds: No Currently Unemployed: No Education: Decline to Answer Difficulty w/ Childcare or Family Care: No Spiritual care concerns: No Meds Home Medications and Allergies Home Medications Medication Instructions Recorded Confirmed Type acetaminophen 500 mg tablet 1,000 mg PO TID PRN Pain (Scale 10/21/23 10/21/23 History Score 1-3) amiodarone 200 mg tablet 200 mg PO DAILY 10/21/23 10/21/23 History apixaban 2.5 mg tablet (Eliquis) 2.5 mg PO Q12H 10/21
[2023-10-21] MEDS: FUROSEMIDE INJ 40 MG/4 ML VIAL 20 MG IV PUSH (17:00)
[2023-10-21] MEDS: BENZONATATE 100 MG CAPSULE PO (17:02)
[2023-10-21] MEDS: SUCRALFATE 1 GM TABLET PO (17:02)
[2023-10-21] MEDS: ACETAMINOPHEN 500 MG TABLET 1000 MG PO (17:07)
[2023-10-21 21:04] LABS: Glucose Point of Care 112 mg/dl (65-105)
[2023-10-21] MEDS: FAMOTIDINE 20 MG/2 ML VIAL IV PUSH (21:57)
[2023-10-21] MEDS: APIXABAN 2.5 MG TABLET PO (21:57)
[2023-10-21] MEDS: TIMOLOL MALEATE 0.25% OP SOLN 5 ML BOTTLE 1 DROP EACH EYE (21:59)
[2023-10-21] MEDS: FLUCONAZOLE 100 MG TABLET 400 MG PO (22:18)
[2023-10-22] VITALS (12 sets, daily range): BP systolic 132–163; BP diastolic 49–66; PULSE 65–85; RESP 16–20; TEMP 36.2–36.7; O2SAT 96–97
[2023-10-22 05:24] LABS: Basophils Absolute Auto 0.1 K/mm3 (0.0-0.1); Basophils Percent Auto 0.9 % (0.2-1.2); Eosinophils Absolute Auto 0.1 K/mm3 (0-0.3); Eosinophils Percent Auto 2.1 % (0-4.4); Hematocrit 39.2 % (37.0-47.0); Hemoglobin 12.6 g/dL (12.0-15.0); Immature Granulocyte Absolute 0.02 K/mm3 (0.00-0.031); Immature Granulocyte Percent A 0.3 % (0-0.5); Lymphocytes Percent Auto 42.5 % (18.3-44.2); Mean Corpuscular HGB Conc 32.1 g/dl (32-36); Mean Corpuscular Hemoglobin 29.1 pg (26-34); Mean Corpuscular Volume 90.5 fl (80-100); Mean Platelet Volume 9.9 fl (7.4-10.4); Monocytes Absolute Auto 0.9 K/mm3 (0.1-0.6); Monocytes Percent Auto 12.5 % (2.6-8.5); Neutrophils Absolute Auto 2.9 K/mm3 (1.3-6.7); Neutrophils Percent Auto 41.7 % (45.5-73.1); Platelet Count Result 189 k/mm3 (150-375); Red Blood Count 4.33 M/mm3 (4.2-5.4); Red Cell Distribution Width 14.3 % (11.5-14.5); White Blood Count 6.8 K/mm3 (4.5-10.0)
[2023-10-22 05:49] LABS: Anion Gap 8 mmol/L (8-16); Blood Urea Nitrogen 20 mg/dL (7-17); Calcium 9.5 mg/dL (8.4-10.2); Carbon Dioxide 30 mmol/L (22-30); Chloride 96 mmol/L (98-107); Estimated CRCL calculation 23 ml/min; Estimated Glomerular Filt Rate 43; Glucose 87 mg/dL (65-110); Potassium 3.3 mmol/L (3.4-5.0); Sodium 134 mmol/L (137-145)
--- NOTE | 2023-10-22 07:23 | PM.PNCARD ---
Progress Note: A&P Assessment and Plan (1) CHF (congestive heart failure): Code(s): I50.9 - Heart failure, unspecified Status: Acute Assessment and Plan: Acute on chronic combined systolic and diastolic heart failure. Probably due to over-hydration. NTproBNP 1,940. Per patient prior echo in May 2023 at [facility] with EF 47%. 10/21/23 Echo: EF 45-50%, mild LVH, grade I diastolic dysfunction (E/e' 24), mild LAE, trace TR. Advise to limit fluid intake to 1.5-2 l/day from 4 l/day she was drinking. Change IV Lasix to Lasix 20 mg PO daily for 3 days and start Spironolactone 25 mg daily. January d/c home from cardiology standpoint and f/u with her regular data power consultant, Dr. Junior at [facility] in 1 week. (2) Paroxysmal A-fib: Code(s): I48.0 - Paroxysmal atrial fibrillation Status: Acute Assessment and Plan: In sinus rhythm. On Eliquis and Amiodarone. (3) HTN (hypertension): Qualifiers: Hypertension type: primary hypertension Qualified Code(s): I10 - Essential (primary) hypertension Code(s): I10 - Essential (primary) hypertension Status: Acute Assessment and Plan: Mildly high. Start Spironolactone. (4) HLD (hyperlipidemia): Code(s): E78.5 - Hyperlipidemia, unspecified Status: Acute Assessment and Plan: On Rosuvastatin. (5) LBBB (left bundle branch block): Code(s): I44.7 - Left bundle-branch block, unspecified Status: Acute Assessment and Plan: Chronic. Subjective Date/time seen: 10/22/23 07:23 Interval history: Reports less sob and no longer having rattling in her chest when she lies down. No chest pains. Exam Const: General: cooperative, healthy appearing and comfortable Orientation/consciousness: oriented to person, oriented to place and oriented to time Resp: Auscultation: clear to auscultation bilaterally, no crackles, no rales, no rhonchi and no wheezes Cardio: Rate: regular rate Rhythm: regular rhythm Heart sounds: no murmurs Peripheral pulses: dorsalis pedis present Neuro: General: oriented to person, oriented to place and oriented to time Extrem: Right lower extremity: no edema Left lower extremity: no edema Objective Data Vital Signs Vital Signs: Vital Signs - 24 hr 10/21/23 07:57 10/21/23 07:49 10/21/23 08:02 Temperature Pulse Rate 77 77 Respiratory Rate 16 19 Blood Pressure 164/56 H 154/54 H Pulse Oximetry 100 99 98 Oxygen Delivery Room Air 10/21/23 08:17 10/21/23 10:22 10/21/23 10:32 Temperature Pulse Rate 78 79 81 Respiratory Rate 17 19 19 Blood Pressure 168/62 H 167/55 H 126/111 H Pulse Oximetry 95 95 91 Oxygen Delivery 10/21/23 10:33 10/21/23 11:00 10/21/23 11:02 Temperature Pulse Rate 82 81 78 Respiratory Rate 18 19 19 Blood Pressure 168/65 H Pulse Oximetry 93 98 96 Oxygen Delivery 10/21/23 11:15 10/21/23 11:17 10/21/23 11:30 Temperature Pulse Rate 76 76 80 Respiratory Rate 15 17 16 Blood Pressure 158/62 H Pulse Oximetry 96 93 95 Oxygen Delivery 10/21/23 11:45 10/21/23 11:46 10/21/23 11:47 Temperature Pulse Rate 77 77 76 Respiratory Rate 17 19 20 Blood Pressure 175/69 H 167/67 H Pulse Oximetry 99 96 96 Oxygen Delivery 10/21/23 12:02 10/21/23 16:08 10/21/23 14:00 Temperature 97.9 F 98 F Pulse Rate 78 79 70 Respiratory Rate 14 16 Blood Pressure 164/59 H 142/53 H Pulse Oximetry 98 100 Oxygen Delivery 10/21/23 16:00 10/21/23 17:56 10/21/23 16:00 Temperature Pulse Rate 86 70 Respiratory Rate Blood Pressure Pulse Oximetry Oxygen Delivery Room Air 10/21/23 21:25 10/21/23 20:00 10/22/23 01:37 Temperature 98.7 F 97.8 F Pulse Rate 74 74 73 Respiratory Rate 16 16 Blood Pressure 130/57 L 163/66 H Pulse Oximetry 97 97 Oxygen Delivery 10/21/23 22:00 10/22/23 00:00 10/22/23 02:00 Temperature Pulse Rate 78 71 65 Respiratory Rate
[2023-10-22] MEDS: SUCRALFATE 1 GM TABLET PO (10:02)
[2023-10-22] MEDS: FAMOTIDINE 20 MG/2 ML VIAL IV PUSH (10:02)
[2023-10-22] MEDS: POLYSACCHARIDE IRON COMPLEX 150 MG CAPSULE PO (10:03)
[2023-10-22] MEDS: SPIRONOLACTONE 25 MG TABLET PO (10:03)
[2023-10-22] MEDS: AMIODARONE HCL 200 MG TABLET PO (10:03)
[2023-10-22] MEDS: BENZONATATE 100 MG CAPSULE PO (10:04)
[2023-10-22] MEDS: APIXABAN 2.5 MG TABLET PO (10:04)
[2023-10-22] MEDS: CYANOCOBALAMIN 1,000 MCG TABLET 1000 MCG PO (10:04)
[2023-10-22] MEDS: FUROSEMIDE 20 MG TABLET PO (10:04)
[2023-10-22] MEDS: PANTOPRAZOLE 40 MG TABLET PO (10:05)
[2023-10-22] MEDS: TIMOLOL MALEATE 0.25% OP SOLN 5 ML BOTTLE 1 DROP EACH EYE (10:05)
[2023-10-22] MEDS: ROSUVASTATIN 5 MG TABLET PO (10:05)
[2023-10-22] MEDS: FLUTICASONE PROPIONATE 0.05% NA SPR 16 GM BTL (*BKC) 1 SPRAY NASAL (10:10)
--- NOTE | 2023-10-22 13:27 | PM.DS ---
DS: Admitting Diagnosis Discharge Date 10/22/23 Admitting Diagnosis Short of breath DS: Discharge Diagnosis Discharge Diagnosis (1) SOB (shortness of breath): Code(s): R06.02 - Shortness of breath Status: Acute (2) Paroxysmal A-fib: Code(s): I48.0 - Paroxysmal atrial fibrillation Status: Acute (3) HTN (hypertension): Qualifiers: Hypertension type: primary hypertension Qualified Code(s): I10 - Essential (primary) hypertension Code(s): I10 - Essential (primary) hypertension Status: Acute (4) CHF (congestive heart failure): Code(s): I50.9 - Heart failure, unspecified Status: Acute (5) HLD (hyperlipidemia): Code(s): E78.5 - Hyperlipidemia, unspecified Status: Acute DS: Summary Hospital Course Reason for hospitalization: 87yo female with HLD, HTN, LBBB, lymphoma (s/p chemo), thrush by EGD, esophageal stricture (s/p dilation), TIA, and pAfib on anti-coagulation here for SOB. Please see H&P for details. Hospital Course: On arrival to the ED, her HR 85, 16 RR, 98% on RA, BP 142/86. ED workup revealed mild anemia with Hgb of 11.4, no leukocytosis, low O2 saturation on ABG at 90.4%, and elevated BNP at 1940. CXR showed small bilateral pleural effusions, bibasilar chronic interstitial disease vs interstitial edema. CTA of chest showed no PE, dissection, or aortic aneurysm but showed moderate bilateral pleural effusions with minimal pulmonary edema. Troponin <0.012 x3. EKG showed sinus rhythm with a LBBB, unchanged from prior. Cardiology was consulted. She was given IV Lasix once and admitted for further care. Low dose IV Lasix continued. Echo showing EF 45-50%, grade I diastolic dysfunction and minimal valvular disease. She had clinical improvement. She was up walking in the room with stand-by assistance. [place] she had acute on chronic combined systolic and diastolic heart failure. Cr climbed to 1.2 so decided not to send her home with 3 days of lasix but will start Spironolactone tomorrow and close monitoring of renal function. Patient overall did well and was able to be discharged home on 10/22/23. Status at Discharge Cognitive/behavioral status at discharge: stable Time Spent with Patient Time attestation: Total time spent providing and/or coordinating discharge services: 34 minutes Time spent: Greater than 30 minutes Exam Narrative: AF 98.0 132/66 69 20 97% ra Gen - NARD Chest - CTA bilaterally, nml RR CV - RRR S1/S2; Tele showing no significant dysrhtyhmias Abd - Soft, NT/ND, Positive BS Ext - No pedal edema Psych - Nml mood and affect Skin - Warm and dry DS: Data Data Completed and Pending Labs on day of discharge: Labs from last 24 hours 10/22/23 10/21/23 04:21 20:00 WBC 6.8 RBC 4.33 Hgb 12.6 Hct 39.2 MCV 90.5 MCH 29.1 MCHC 32.1 RDW 14.3 Plt Count 189 MPV 9.9 Immature Gran % (Auto) 0.3 Neut % (Auto) 41.7 L Lymph % (Auto) 42.5 [place] % (Auto) 12.5 H Eos % (Auto) 2.1 Baso % (Auto) 0.9 Lymph # (Auto) 2.90 [place] # (Auto) 0.9 H Eos # (Auto) 0.1 Baso # (Auto) 0.1 Abs Immat Gran (auto) 0.02 Absolute Neuts (auto) 2.9 Absolute Nucleated RBC 0.0 Nucleated RBC % 0.0 Sodium 134 L Potassium 3.3 L Chloride 96 L Carbon Dioxide 30 Anion Gap 8 BUN 20 H Creatinine 1.20 H Estim Creat Clear Calc 23 Estimated GFR 43 L Glucose 87 POC Capillary Glucose 112 H Calcium 9.5 TSH (Reflex) 3.620 Discharge Plan Discharge Attending physician on discharge: Brett Dukes Consulting providers: Chung Estrada Discharging Clinician: Brett Dukes Anticipated Discharge Date/Time: 10/22/23 13:39 Patient Disposition: Home, Self-Care Activity: as tolerated Diet: heart healthy Discharge Instructions: Please limit fluid intake to 1.5-2 Liters/day Check blood pressure 1 to 2 times a day. Record and bring into your doctor for re
== END 2023-10-22 14:55 | disposition home or self-care (01) ==
LOC: ANHED 10:43 → ANHIMU 11:49
PROVIDERS: Emergency Medicine; Student in an Organized Health Care Education/Training Program; Admitting Provider Hospitalist; Emergency Provider Emergency Medicine; PCP Internal Medicine; Visit Provider Internal Medicine
DX: I11.0 Hypertensive heart disease with heart failure (principal); I50.43 Acute on chronic combined systolic (congestive) and diastolic (congestive) heart failure; I48.0 Paroxysmal atrial fibrillation; E78.5 Hyperlipidemia, unspecified; I44.7 Left bundle-branch block, unspecified; I08.0 Rheumatic disorders of both mitral and aortic valves; J90 Pleural effusion, not elsewhere classified; D64.9 Anemia, unspecified; R63.0 Anorexia; Z68.22 Body mass index [BMI] 22.0-22.9, adult; Z86.73 Personal history of transient ischemic attack (TIA), and cerebral infarction without residual deficits; Z85.72 Personal history of non-Hodgkin lymphomas; Z92.21 Personal history of antineoplastic chemotherapy; Z79.1 Long term (current) use of non-steroidal anti-inflammatories (NSAID); Z79.52 Long term (current) use of systemic steroids; Z79.01 Long term (current) use of anticoagulants; Z79.899 Other long term (current) drug therapy
CPT/HCPCS: 36415; 36600; 71046; 71275; 80048; 80053; 82805; 82948; 83690; 83880; 84443; 84484; 85025; 85610; 85730; 93005; 93306; 96374; 99285; A9270; G0378; J1940; Q9967

== ENCOUNTER 2024-03-23 13:40 | Emergency (ER) | payer MEDICARE, BC, SELFPAY ==
[2024-03-23 14:06] VITALS: BP 112/54; PULSE 76; RESP 16; TEMP 36.6; O2SAT 100
--- NOTE | 2024-03-23 14:43 | ED.SKABFB ---
HPI - Skin/Abscess/Foreign Bdy General Chief complaint: Skin/Abscess/Foreign Body Stated complaint: L leg discoloration? Time Seen by Provider: 03/23/24 14:50 Source: patient Mode of arrival: ambulatory Limitations: no limitations History of Present Illness HPI narrative: Agustina is an 88-year-old female patient presenting to the ER today with complaints of left lower leg discoloration. She reports over the last few days she has noticed a discoloration of her legs. States that it has become discolored in the past and has improved but now is staying discolored. Has a brown pigmentation to the left lower leg with an area that is bruised. Patient is taking Eliquis. She is concerned that the area may be infected. She denies any fever, chills, or body aches. Related Data Home Medications Medication Instructions Recorded Confirmed acetaminophen 500 mg tablet 1,000 mg PO TID PRN Pain (Scale 10/21/23 10/21/23 Score 1-3) amiodarone 200 mg tablet 200 mg PO DAILY 10/21/23 10/21/23 apixaban 2.5 mg tablet (Eliquis) 2.5 mg PO Q12H 10/21/23 10/21/23 cetirizine 5 mg tablet 5 mg PO HS 10/21/23 10/21/23 cyanocobalamin (vitamin B-12) 1,000 mcg PO DAILY 10/21/23 10/21/23 1,000 mcg tablet fluconazole 200 mg tablet 200 mg PO DIRECTED 10/21/23 10/21/23 fluticasone propionate 50 1 spray intranasal DAILY 10/21/23 10/21/23 mcg/actuation nasal spray,suspension hydrocortisone 2.5 % topical cream 1 applic RECTAL DAILY PRN 10/21/23 10/21/23 with perineal applicator Hemorrhoids melatonin 3 mg tablet 3 mg PO HS PRN Insomnia 10/21/23 10/21/23 pantoprazole 40 mg tablet,delayed 40 mg PO QAM 10/21/23 10/21/23 release polysaccharide iron complex 150 mg 150 mg PO EVERY OTHER DAY 10/21/23 10/21/23 iron capsule rosuvastatin 5 mg tablet 5 mg PO DAILY 10/21/23 10/21/23 sucralfate 1 gram tablet 1 g PO TIDWM 10/21/23 10/21/23 timolol 0.25 % eye drops 1 drp EACH EYE Q12H 10/21/23 10/21/23 Allergies Allergy/AdvReac Type Severity Reaction Status Date / Time Sulfa (Sulfonamide Allergy Severe Swelling Verified 03/01/23 12:46 Antibiotics) of Lip/Tongue/Throat Review of Systems Review of Systems: Pertinent positives per HPI. Patient denies any fever, chills, rash, headache, visual changes, dizziness, cough, runny nose, sore throat, shortness of breath, chest pain, palpitations, nausea, vomiting, diarrhea, constipation, abdominal pain, or any urinary issues. 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 Paroxysmal A-fib TIA (transient ischemic attack) Surgical History Surgical History History of lymph node biopsy Social History Social History Smoking status: Never smoker Alcohol intake: never Alcohol use details: denies Substance use: never Other substance usage details: denies Do You Feel Safe in your Home?: Yes Lack of Transportation: No Lack of Food: Never True Current Housing: I Have Housing Concerned About Future Housing: No Difficulty Paying Gas/Electric Bills: No Difficulty Paying for Meds: No Currently Unemployed: No Education: Decline to Answer Difficulty w/ Childcare or Family Care: No Spiritual care concerns: No Comments At the time of my signature, I reviewed and agree with the nursing past medical, surgical, social, and family history. There is no relevant family history pertinent to the patient complaint. Exam Narrative: General: Well-developed, well nourished, in no apparent distress Head: Normocephalic, atraumatic. Cardio: Regular rate and rhythm, s1 and s2 normal, no murmur appreciated. Resp: Clear to auscultation bilaterally, no rhonchi, rales,
== END 2024-03-23 15:42 | disposition home or self-care (01) ==
LOC: ANHED 15:15
PROVIDERS: Emergency Provider Nurse Practitioner Family; PCP Internal Medicine
DX: I83.12 Varicose veins of left lower extremity with inflammation (principal); I83.91 Asymptomatic varicose veins of right lower extremity; R58 Hemorrhage, not elsewhere classified; I10 Essential (primary) hypertension; I48.0 Paroxysmal atrial fibrillation; E78.5 Hyperlipidemia, unspecified; Z86.73 Personal history of transient ischemic attack (TIA), and cerebral infarction without residual deficits; Z85.72 Personal history of non-Hodgkin lymphomas; Z87.01 Personal history of pneumonia (recurrent); Z79.01 Long term (current) use of anticoagulants; Z79.899 Other long term (current) drug therapy
CPT/HCPCS: 99281

== ENCOUNTER 2024-04-02 10:26 | Inpatient (IN) | payer MEDICARE, BC, SELFPAY ==
--- NOTE | ~2024-04-02 | XR_ITS ---
XR chest 2V Ordering provider: Vida Chan PA-C History: 88 years Female with . fever, WEAKNESS, BODY ACHES, HX OF AFIB . Comparison: October 21, 2023 FINDINGS: MEDIASTINUM: The cardiac silhouette is not enlarged. LUNGS: No effusions or pneumothorax. Opacification of the posterior costophrenic angle on the left si de suggestive of pneumonia. OTHER: No free air under the diaphragm. IMPRESSION: Pneumonia in the left lung base posteriorly. Follow-up advised. Reviewed, dictated and finalized at location A.
--- NOTE | ~2024-04-02 | XR_ITS ---
Portable chest x-ray Comparison: 04/02/2024 Clinical History: Pneumonia Findings: Small left pleural effusion present with worsening left basilar consolidation. Cardiomedi astinal silhouette is stable. Bones and soft tissues are unremarkable. Impression: Worsening left basilar consolidation, suspicious for pneumonia versus possibly atelectasis. Small left pleural effusion, increased. Reviewed, dictated and finalized at [facility]. Impression: Worsening left basilar consolidation, suspicious for pneumonia versus possibly atelectasis. Small left pleural effusion, increased.
[2024-04-02 10:29] VITALS: BP 148/49; PULSE 71; RESP 20; TEMP 36.5; O2SAT 99
[2024-04-02 11:30] VITALS: BP 116/55; PULSE 65; RESP 18; TEMP 36.7; O2SAT 99
[2024-04-02 11:35] LABS: Basophils Percent Auto 0.4 % (0.2-1.2); Eosinophils Percent Auto 0.4 % (0-4.4); Hematocrit 33.2 % (37.0-47.0); Hemoglobin 10.8 g/dL (12.0-15.0); Immature Granulocyte Absolute 0.07 K/mm3 (0.00-0.031); Immature Granulocyte Percent A 0.7 % (0-0.5); Lymphocytes Absolute Auto 1.25 K/mm3 (0.9-3.2); Lymphocytes Percent Auto 13.1 % (18.3-44.2); Mean Corpuscular HGB Conc 32.5 g/dl (32-36); Mean Corpuscular Hemoglobin 28.7 pg (26-34); Mean Corpuscular Volume 88.3 fl (80-100); Mean Platelet Volume 9.7 fl (7.4-10.4); Monocytes Absolute Auto 1.5 K/mm3 (0.1-0.6); Monocytes Percent Auto 15.9 % (2.6-8.5); Neutrophils Absolute Auto 6.7 K/mm3 (1.3-6.7); Neutrophils Percent Auto 69.5 % (45.5-73.1); Platelet Count Result 139 k/mm3 (150-375); Red Blood Count 3.76 M/mm3 (4.2-5.4); Red Cell Distribution Width 15.1 % (11.5-14.5); White Blood Count 9.6 K/mm3 (4.5-10.0)
[2024-04-02 11:43] LABS: Lactic Acid Reflex 0.9 mmol/L (0.7-2.0)
[2024-04-02 11:44] LABS: INR 1.5; Prothrombin Time 18.7 Seconds (11.1-14.7)
[2024-04-02 11:45] LABS: Partial Thromboplastin Time 30.3 Seconds (22.3-36.8)
[2024-04-02 11:46] LABS: Alanine Aminotransferase 20 U/L (6-35); Albumin Level 3.7 g/dL (3.5-5.1); Alkaline Phosphatase 70 U/L (38-126); Anion Gap 9 mmol/L (4-12); Aspartate Amino Transferase 29 U/L (14-36); Bilirubin,Total 0.6 mg/dL (0.2-1.3); Blood Urea Nitrogen 17 mg/dL (7-17); CRP 8.3 mg/dL (<1.0); Calcium 8.9 mg/dL (8.4-10.2); Carbon Dioxide 24 mmol/L (22-30); Chloride 98 mmol/L (98-107); Estimated CRCL calculation 30 ml/min; Estimated Glomerular Filt Rate 53; Glucose 96 mg/dL (65-110); Potassium 4.1 mmol/L (3.4-5.0); Sodium 131 mmol/L (137-145)
--- NOTE | 2024-04-02 12:08 | ED.FEVER ---
HPI - Fever General Chief Complaint: Fever <COCO Alfaro Last Filed: 04/02/24 15:43> Stated Complaint: FEVER <COCO Alfaro Last Filed: 04/02/24 15:43> Time Seen by Provider: 04/02/24 11:18 <COCO Alfaro Last Filed: 04/02/24 15:43> Source: patient <COCO Alfaro Last Filed: 04/02/24 15:43> Mode of arrival: ambulatory <COCO Alfaro Last Filed: 04/02/24 15:43> Limitations: no limitations <COCO Alfaro Last Filed: 04/02/24 15:43> History of Present Illness HPI Narrative: This is a 88 year old female that presents to the ER for fevers, body aches. Ongoing over the last couple of days. Reports nausea and vomiting. Reports left sided upper abdominal/chest pain intermittently. Reports some rhinorrhea. Reports generalized weakness. Denies cough, shortness of breath, diarrhea, or dysuria. <COCO Alfaro Last Filed: 04/02/24 15:43> Related Data Home Medications: Home Medications Medication Instructions Recorded Confirmed acetaminophen 500 mg tablet 1,000 mg PO TID PRN Pain (Scale 10/21/23 04/02/24 Score 1-3) amiodarone 200 mg tablet 100 mg PO DAILY 10/21/23 04/02/24 apixaban 2.5 mg tablet (Eliquis) 2.5 mg PO Q12H 10/21/23 04/02/24 fluticasone propionate 50 1 spray intranasal DAILY 10/21/23 04/02/24 mcg/actuation nasal spray,suspension hydrocortisone 2.5 % topical cream 1 applic RECTAL DAILY PRN 10/21/23 04/02/24 with perineal applicator Hemorrhoids melatonin 3 mg tablet 3 mg PO HS PRN Insomnia 10/21/23 04/02/24 polysaccharide iron complex 150 mg 150 mg PO EVERY OTHER DAY 10/21/23 04/02/24 iron capsule rosuvastatin 5 mg tablet 5 mg PO DAILY 10/21/23 04/02/24 sucralfate 1 gram tablet 1 g PO TIDWM PRN stomach pain 10/21/23 04/02/24 timolol 0.25 % eye drops 1 drp EACH EYE Q12H 10/21/23 04/02/24 omeprazole 20 mg capsule,delayed 20 mg PO DAILY 04/02/24 04/02/24 release <Vida Chan PA-C - Last Filed: 04/02/24 15:43> Allergies/Adverse Reactions: Allergies Allergy/AdvReac Type Severity Reaction Status Date / Time Sulfa (Sulfonamide Allergy Severe Swelling Verified 04/02/24 10:31 Antibiotics) of Lip/Tongue/Throat <Vida Chan PA-C - Last Filed: 04/02/24 15:43> Review of Systems Review of Systems: CONSTITUTIONAL: Denies fever ENT: Reports rhinorrhea. Denies congestion, sore throat, or otalgia. CARDIOVASCULAR: Reports chest pain RESPIRATORY: Denies cough or dyspnea. GASTROINTESTINAL: Reports abdominal pain, nausea, vomiting. Denies diarrhea. GENITOURINARY: Denies dysuria or hematuria. MUSCULOSKELETAL: Reports joint pain, and myalgia. <Vida Chan PA-C - Last Filed: 04/02/24 15:43> All systems reviewed & are unremarkable except as noted in HPI and below <Vida Chan PA-C - Last Filed: 04/02/24 15:43> [facility] Past Medical History Medical History: Medical History (Updated 04/02/24 @ 14:39 by Vida Chan PA-C) Chronic anticoagulation Heart failure with mid-range ejection fraction Echocardiogram in October 2023 showed mildly reduced LV systolic function with an EF of 45 to 50% and grade 1 diastolic dysfunction. Hyperlipidemia Hypertension Left bundle branch block Lymphoma (2020) Paroxysmal atrial fibrillation Transient ischemic attack <Vida Chan PA-C - Last Filed: 04/02/24 15:43> Surgical History Surgical History: Surgical History History of lymph node biopsy <Vida Chan PA-C - Last Filed: 04/02/24 15:43> Social History Social History: Social History (Updated 04/02/24 @ 13:57 by Renuka Scanlon PA-C) Social History: Surrogate medical decision maker: Code status: Full code. Smoking status: Never smoker Alcohol intake: never Substance use: never Substance use type: does not use Do You Feel Safe in your Home?: Yes Lack of Transportation:
[2024-04-02 12:10] LABS: Influenza A QL RT-PCR Negative (Negative); Influenza B QL RT-PCR Negative (Negative); RSV RNA, RT-PCR Negative (Negative); SARS-CoV-2 RNA PCR Negative (Negative)
--- NOTE | 2024-04-02 12:11 | ECG_ITS ---
Test Date: 2024-04-02 14:18:17 Measurements Intervals [place] Rate: 76 P: 71 TX: 186 QRS: -52 QRSD: 160 T: 87 QT: 438 QTc: 494 Interpretive Statements SINUS RHYTHM LEFT AXIS DEVIATION LEFT BUNDLE BRANCH BLOCK BASELINE ARTIFACT- II, III, AVF, V1, V4-V6 ABNORMAL ECG No previous ECG available for comparison Electronically Signed On 04-02-2024 17:51:09 CDT by Chung Estrada D.O.
[2024-04-02 12:47] LABS: Lipase 73 U/L (23-300)
[2024-04-02 13:00] LABS: Troponin I 0.016 ng/mL (0.000-0.034)
[2024-04-02 13:06] LABS: Appearance Urine Clear (Clear); Bacteria Urine None Seen /hpf; Bilirubin Urine Negative (Negative); Blood Urine Negative (Negative); Color Urine Yellow (Yellow); Glucose Urine UA Negative (Negative); Ketones Urine Negative (Negative); Leukocyte Esterase Ur 3+ LEU/UL (Negative); Nitrate Urine Negative (Negative); Non Pathogenic Casts 0-2; Protein Urine Negative (Negative); RBC Urine 0-2 /hpf (0-2); Squamous Epithelial Cell Urine Occasional /hpf (Few); Urobilinogen Urine 0.2 mg/dL (<2.0); WBC Urine 21-50 /hpf (0-3)
[2024-04-02 13:07] LABS: Add Urine Microscopic? YES
--- NOTE | 2024-04-02 13:50 | PM.IMHP ---
H&P: HPI History of Present Illness Date/Time: 04/02/24 14:15 Chief Complaint: Subjective fever and body aches. Narrative: This is an 88-year-old female with paroxysmal atrial fibrillation on chronic anticoagulation, heart failure with mid-range ejection fraction and diastolic dysfunction, hyperlipidemia, gastroesophageal reflux disease, and history of lymphoma who presented to the emergency department via private vehicle from home for evaluation of subjective fever and body aches. The patient provides the following history. She has not been feeling well for a couple of days with generalized malaise, body aches (more so in the shoulders and hips), postnasal drip, headache, and a dry cough. She has felt as though she has been running a fever however her temperature has only been as high as 99.8? F. She has been taking acetaminophen with some benefit. She denies sinus congestion, sore throat, chest and pleuritic pain, vomiting, diarrhea, and dysuria. Of note the patient was recently treated for thrush and she is worried about fungal pneumonia. In the ED: She was afebrile on arrival with stable vital signs. Labs were significant for a WBC count of 9.6, hemoglobin 10.8, platelet 139, sodium 131, BUN 17, creatinine 1.00, CRP 8.3, troponin 0.016. She tested negative for influenza, RSV, and COVID. Chest x-ray showed pneumonia left lung base posteriorly. She was given azithromycin 500 mg and ceftriaxone 1 gm and she is being admitted in this setting as she does not think that she would be able to go home due to weakness. Review of Systems Review of Systems: 12 systems were reviewed and are negative except for as per HPI. [facility] Past Medical History Medical History (Updated 04/02/24 @ 14:39 by Vida Chan PA-C) Chronic anticoagulation Heart failure with mid-range ejection fraction Echocardiogram in October 2023 showed mildly reduced LV systolic function with an EF of 45 to 50% and grade 1 diastolic dysfunction. Hyperlipidemia Hypertension Left bundle branch block Lymphoma (2020) Paroxysmal atrial fibrillation Transient ischemic attack Surgical History Surgical History History of lymph node biopsy Social History Social History (Updated 04/02/24 @ 20:35 by Renuka Scanlon PA-C) Social History: Surrogate medical decision maker: Annemarie Ortiz, granddaughter. Code status: Full code. Smoking status: Never smoker Alcohol intake: never Substance use: never Substance use type: does not use Do You Feel Safe in your Home?: Yes Lack of Transportation: No Lack of Food: Never True Current Housing: I Have Housing Concerned About Future Housing: No Difficulty Paying Gas/Electric Bills: No Difficulty Paying for Meds: No Currently Unemployed: No Education: Decline to Answer Difficulty w/ Childcare or Family Care: No Spiritual care concerns: No Meds Home Medications and Allergies Home Medications Medication Instructions Recorded Confirmed Type acetaminophen 500 mg tablet 1,000 mg PO TID PRN Pain (Scale 10/21/23 04/02/24 History Score 1-3) amiodarone 200 mg tablet 100 mg PO DAILY 10/21/23 04/02/24 History apixaban 2.5 mg tablet (Eliquis) 2.5 mg PO Q12H 10/21/23 04/02/24 History fluticasone propionate 50 1 spray intranasal DAILY 10/21/23 04/02/24 History mcg/actuation nasal spray,suspension hydrocortisone 2.5 % topical cream 1 applic RECTAL DAILY PRN 10/21/23 04/02/24 History with perineal applicator Hemorrhoids melatonin 3 mg tablet 3 mg PO HS PRN Insomnia 10/21/23 04/02/24 History polysaccharide iron complex 150 mg 150 mg PO EVERY OTHER DAY 10/21/23 04/02/24 History iron capsule rosuvastatin 5 mg tablet 5 mg PO DAILY 10/21/23 04/02/24 History sucralfate 1 gram tablet 1 g PO TIDWM PRN stomach pain 10/21/23 04/02/24 History timolol 0.25 % eye drops 1 drp EACH EYE Q12H 10/21/23 04/02/24 History spironolactone 25 mg tablet 25
[2024-04-02] MEDS: AZITHROMYCIN 500 MG/NS 250 ML 500 MG/250 ML BAG 250 MG IVPB (14:51)
[2024-04-02 14:53] VITALS: BP 121/70; PULSE 67; RESP 16; TEMP 36.6; O2SAT 98
[2024-04-02 15:30] VITALS: BP 145/58; PULSE 82; RESP 16; TEMP 36.6; O2SAT 98
--- NOTE | 2024-04-02 15:41 | ADMGEN ---
This patient, Agustina Cordova, was admitted to Medical Room 251-01. Patient/family oriented to hospital policies and general routines including ID bracelet, bed and alarms, visiting hours, pain management, procedures, bathroom and other care routines, personal items, smoking policy, room service/diet, and visiting hours. Information on how to activate the Rapid Response Team has been discussed. Patient/Family are encouraged to report perceived risks to care and to ask questions if they do not understand what they are told or what they should do.
[2024-04-02 15:52] VITALS: BMI 19.3
[2024-04-02] MEDS: ACETAMINOPHEN 325 MG TABLET 650 MG PO (16:38)
[2024-04-02 20:00] VITALS: PULSE 79; RESP 19; O2SAT 95
[2024-04-02 20:20] VITALS: BP 117/51; PULSE 78; RESP 18; TEMP 36.8; O2SAT 94
[2024-04-02] MEDS: MELATONIN 3 MG TABLET PO (21:00)
[2024-04-02] MEDS: DOXYCYCLINE HYCLATE 100 MG TABLET PO (21:00)
[2024-04-02] MEDS: APIXABAN 2.5 MG TABLET PO (21:00)
[2024-04-02] MEDS: guaiFENesin 12 HR 600 MG TABCR PO (21:00)
[2024-04-02] MEDS: SUCRALFATE 1 GM TABLET PO (21:00)
[2024-04-02] MEDS: TIMOLOL MALEATE 0.25% OP SOLN 5 ML BOTTLE 1 DROP EACH EYE (21:10)
[2024-04-03] VITALS (11 sets, daily range): BP systolic 107–158; BP diastolic 40–60; PULSE 73–91; RESP 16–18; TEMP 36.7–37.4; O2SAT 93–100; BMI 19.2
[2024-04-03] MEDS: ACETAMINOPHEN 325 MG TABLET 650 MG PO ×2 (03:22→20:39)
[2024-04-03] MEDS: IPRATROPIUM 0.5 MG/ALBUTEROL SULFATE 2.5 MG AMPUL.NEB 3 ML INHALATION (03:55)
[2024-04-03 05:19] LABS: Basophils Percent Auto 0.3 % (0.2-1.2); Eosinophils Percent Auto 0.2 % (0-4.4); Hematocrit 31.3 % (37.0-47.0); Hemoglobin 10.2 g/dL (12.0-15.0); Immature Granulocyte Absolute 0.08 K/mm3 (0.00-0.031); Immature Granulocyte Percent A 0.8 % (0-0.5); Lymphocytes Absolute Auto 1.32 K/mm3 (0.9-3.2); Lymphocytes Percent Auto 12.5 % (18.3-44.2); Mean Corpuscular HGB Conc 32.6 g/dl (32-36); Mean Corpuscular Hemoglobin 28.9 pg (26-34); Mean Corpuscular Volume 88.7 fl (80-100); Mean Platelet Volume 9.7 fl (7.4-10.4); Monocytes Absolute Auto 1.4 K/mm3 (0.1-0.6); Monocytes Percent Auto 12.8 % (2.6-8.5); Neutrophils Absolute Auto 7.8 K/mm3 (1.3-6.7); Neutrophils Percent Auto 73.4 % (45.5-73.1); Platelet Count Result 129 k/mm3 (150-375); Red Blood Count 3.53 M/mm3 (4.2-5.4); Red Cell Distribution Width 15.2 % (11.5-14.5); White Blood Count 10.6 K/mm3 (4.5-10.0)
[2024-04-03 05:31] LABS: Anion Gap 9 mmol/L (4-12); Blood Urea Nitrogen 13 mg/dL (7-17); Calcium 8.5 mg/dL (8.4-10.2); Carbon Dioxide 23 mmol/L (22-30); Chloride 99 mmol/L (98-107); Estimated CRCL calculation 33 ml/min; Estimated Glomerular Filt Rate 59; Glucose 104 mg/dL (65-110); Magnesium 1.7 mg/dL (1.6-2.3); Sodium 131 mmol/L (137-145)
--- NOTE | 2024-04-03 08:11 | PM.IMPN ---
Progress Note: A&P Assessment and Plan (1) Community acquired pneumonia: Code(s): J18.9 - Pneumonia, unspecified organism Status: Acute Assessment and Plan: - Chest x-ray shows a left lower lobe posterior pneumonia -04/02- azithromycin 500 mg and ceftriaxone 1 gm -Attempt sputum for culture. Check Legionella and pneumococcal antigens as well as mycoplasma IgM. 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 Check Legionella and pneumococcal antigens as well as mycoplasma IgM. She is clinically compensated with regards to her congestive heart failure. Avoid over-hydration; monitor volume status which I/O and daily weights. Blood pressures were reviewed and they have been stable and her SpO2 has been in the upper 90s on room air. She sounds to be in a sinus rhythm. Her home medications were reviewed and resumed Time Spent With Patient Time with patient: Greater than 35 minutes Subjective Date/time seen: 04/03/24 08:11 Interval history: Narrative retrieved from H/P: ''Narrative: This is an 88-year-old female with paroxysmal atrial fibrillation on chronic anticoagulation, heart failure with mid-range ejection fraction and diastolic dysfunction, hyperlipidemia, gastroesophageal reflux disease, and history of lymphoma who presented to the emergency department via private vehicle from home for evaluation of subjective fever and body aches. The patient provides the following history. She has not been feeling well for a couple of days with generalized malaise, body aches (more so in the shoulders and hips), postnasal drip, headache, and a dry cough. She has felt as though she has been running a fever however her temperature has only been as high as 99.8? F. She has been taking acetaminophen with some benefit. She denies sinus congestion, sore throat, chest and pleuritic pain, vomiting, diarrhea, and dysuria. Of note the patient was recently treated for thrush and she is worried about fungal pneumonia. In the ED: She was afebrile on arrival with stable vital signs. Labs were significant for a WBC count of 9.6, hemoglobin 10.8, platelet 139, sodium 131, BUN 17, creatinine 1.00, CRP 8.3, troponin 0.016. She tested negative for influenza, RSV, and COVID. Chest x-ray showed pneumonia left lung base posteriorly. She was given azithromycin 500 mg and ceftriaxone 1 gm and she is being admitted in this setting as she does not think that she would be able to go home due to weakness. 04/03- pt is seen and examined today. Reports some wheezing overnight- relieved with breathing treatment. Some nausea but able to eat and drink ok without vomiting. Review of Systems Review of Systems: 12 systems were reviewed and are negative except for as per HPI. ENT: Reports Normal hearing present Respiratory: Respiratory: Reports chest congestion, Reports cough, Reports dyspnea and Reports wheezing Gastrointestinal: Gastrointestinal: Reports nausea and Denies vomiting Exam Narrative: General: Nontoxic-appearing elderly female in the semi-Jara position in bed. Weight: 52.62 kg. BMI: 19.3. HEENT: PERRL, EOMI. Sclera anicteric. Oral mucosa moist. Oropharynx clear. No evidence of thrush. Neck: Supple. No JVD. Respiratory: Respirations are nonlabored she is speaking in full sentences. Bronchial breath sounds are heard at the left base. Cardiovascular: Regular rate and rhythm with S1-S2. Gastrointestinal: Abdomen is soft, nontender, and nondistended wit
[2024-04-03] MEDS: ROSUVASTATIN 5 MG TABLET PO (10:38)
[2024-04-03] MEDS: DOXYCYCLINE HYCLATE 100 MG TABLET PO ×2 (10:38→20:40)
[2024-04-03] MEDS: PANTOPRAZOLE 40 MG TABLET PO (10:39)
[2024-04-03] MEDS: AMIODARONE HCL 100 MG TABLET PO (10:39)
[2024-04-03] MEDS: POLYSACCHARIDE IRON COMPLEX 150 MG CAPSULE PO (10:39)
[2024-04-03] MEDS: FLUTICASONE PROPIONATE 0.05% NA SPR 16 GM BTL (*BKC) 1 SPRAY NASAL (10:44)
[2024-04-03] MEDS: guaiFENesin 12 HR 600 MG TABCR PO ×2 (10:44→20:40)
[2024-04-03] MEDS: SPIRONOLACTONE 25 MG TABLET PO (10:44)
[2024-04-03] MEDS: APIXABAN 2.5 MG TABLET PO ×2 (10:44→20:40)
[2024-04-03] MEDS: TIMOLOL MALEATE 0.25% OP SOLN 5 ML BOTTLE 1 DROP EACH EYE ×2 (10:48→20:40)
--- NOTE | 2024-04-03 11:57 | PCPTNOTE ---
On 04/03/24, the student, [Susan Zepeda], provided care and completed [facility] documentation on this patient. I have reviewed the student's documentation and agree with the findings.
[2024-04-03] MEDS: guaiFENesin/DEXTROMETHORPHAN 10 ML UDC PO (20:40)
[2024-04-03] MEDS: MELATONIN 3 MG TABLET PO (20:40)
[2024-04-03] MEDS: BENZOCAINE/MENTHOL (*BKC) 18 EA LOZENGE 1 LOZENGE PO (22:53)
[2024-04-04 05:05] VITALS: BP 164/61; PULSE 87; RESP 18; TEMP 37.4; O2SAT 92
[2024-04-04 08:18] VITALS: PULSE 84
[2024-04-04] MEDS: PANTOPRAZOLE 40 MG TABLET PO (08:18)
[2024-04-04] MEDS: AMIODARONE HCL 100 MG TABLET PO (08:18)
[2024-04-04] MEDS: APIXABAN 2.5 MG TABLET PO ×2 (08:18→20:33)
[2024-04-04] MEDS: TIMOLOL MALEATE 0.25% OP SOLN 5 ML BOTTLE 1 DROP EACH EYE ×2 (08:19→20:32)
[2024-04-04] MEDS: ROSUVASTATIN 5 MG TABLET PO (08:19)
[2024-04-04] MEDS: DOXYCYCLINE HYCLATE 100 MG TABLET PO ×2 (08:19→20:33)
[2024-04-04] MEDS: SPIRONOLACTONE 25 MG TABLET PO (08:19)
[2024-04-04] MEDS: BENZOCAINE/MENTHOL (*BKC) 18 EA LOZENGE 1 LOZENGE PO (08:20)
[2024-04-04] MEDS: ACETAMINOPHEN 325 MG TABLET 650 MG PO ×2 (08:25→20:33)
[2024-04-04] MEDS: guaiFENesin/DEXTROMETHORPHAN 10 ML UDC PO ×2 (08:25→20:33)
--- NOTE | 2024-04-04 08:33 | PM.IMPN ---
Progress Note: A&P Assessment and Plan (1) Community acquired pneumonia: Code(s): J18.9 - Pneumonia, unspecified organism Status: Acute Assessment and Plan: - Chest x-ray shows a left lower lobe posterior pneumonia -04/02- azithromycin 500 mg and ceftriaxone 1 gm -Attempt sputum for culture. Check Legionella and pneumococcal antigens as well as mycoplasma IgM. - on supplemental o2 now - will try to wean if able 04/04- ra since last night. but not much else improved- will order legionella pneumonia - continue flonase (2) Heart failure with mid-range ejection fraction: Code(s): I50.22 - Chronic systolic (congestive) heart failure Status: Acute (3) Paroxysmal atrial fibrillation: Code(s): I48.0 - Paroxysmal atrial fibrillation Status: Acute (4) Chronic anticoagulation: Code(s): Z79.01 - long-term (current) use of anticoagulants Status: Acute (5) Hypertension: Code(s): I10 - Essential (primary) hypertension Status: Acute Plan Attempt sputum for culture. Check Legionella and pneumococcal antigens as well as mycoplasma IgM. She is clinically compensated with regards to her congestive heart failure. Avoid over-hydration; monitor volume status which I/O and daily weights. Blood pressures were reviewed and they have been stable and her SpO2 has been in the upper 90s on room air. She sounds to be in a sinus rhythm. Her home medications were reviewed and resumed Time Spent With Patient Time with patient: 25 - 35 minutes Subjective Date/time seen: 04/04/24 08:33 Interval history: Narrative retrieved from H/P: ''Narrative: This is an 88-year-old female with paroxysmal atrial fibrillation on chronic anticoagulation, heart failure with mid-range ejection fraction and diastolic dysfunction, hyperlipidemia, gastroesophageal reflux disease, and history of lymphoma who presented to the emergency department via private vehicle from home for evaluation of subjective fever and body aches. The patient provides the following history. She has not been feeling well for a couple of days with generalized malaise, body aches (more so in the shoulders and hips), postnasal drip, headache, and a dry cough. She has felt as though she has been running a fever however her temperature has only been as high as 99.8? F. She has been taking acetaminophen with some benefit. She denies sinus congestion, sore throat, chest and pleuritic pain, vomiting, diarrhea, and dysuria. Of note the patient was recently treated for thrush and she is worried about fungal pneumonia. In the ED: She was afebrile on arrival with stable vital signs. Labs were significant for a WBC count of 9.6, hemoglobin 10.8, platelet 139, sodium 131, BUN 17, creatinine 1.00, CRP 8.3, troponin 0.016. She tested negative for influenza, RSV, and COVID. Chest x-ray showed pneumonia left lung base posteriorly. She was given azithromycin 500 mg and ceftriaxone 1 gm and she is being admitted in this setting as she does not think that she would be able to go home due to weakness. 04/03- pt is seen and examined today. Reports some wheezing overnight- relieved with breathing treatment. Some nausea but able to eat and drink ok without vomiting. 04/04- pt is seen and examined today. Vitals reviewed. Afebrile. She had been on room air since last night- still reports that feeling bad- tired and no energy. c/o headache, sinus pressure, and nausea. NO wheezing. Review of Systems Review of Systems: 12 systems were reviewed and are negative except for as per HPI. ENT: Reports Normal hearing present Cardiovascular: Cardiovascular: Reports dyspnea Respiratory: Respiratory: Reports chest congestion, Reports cough, Reports dyspnea and Reports wheezing Gastrointestinal: Gastrointestinal: Reports nausea and Denies vomiting Neurologic: Reports Normal hearing present Allergic/Immunologic: Allergic/Immunologic: Reports wheezing Exam Narrative: Ge
--- NOTE | 2024-04-04 10:48 | PC.NURSE ---
Patient sitting at bedside finishing breakfast. Patient has multiple complaints regarding the temperature, drainage, headache, abdominal muscle discomfort, not having a recent bowel movement, and having a cough. She states she feel worse everyday. Patient was educated in regards to the healing process from pneumonia and given options for managing this process. Patient was pleasant and cooperative.
[2024-04-04 14:16] VITALS: BP 121/48; PULSE 80; RESP 16; TEMP 36.6; O2SAT 96
[2024-04-04] MEDS: guaiFENesin 12 HR 600 MG TABCR PO (20:33)
[2024-04-04 22:00] VITALS: BP 150/48; PULSE 84; RESP 18; TEMP 36.8; O2SAT 98
[2024-04-05 06:00] VITALS: BP 145/46; PULSE 77; RESP 18; TEMP 36.7; O2SAT 95
--- NOTE | 2024-04-05 07:24 | PM.IMPN ---
Progress Note: A&P Assessment and Plan (1) Community acquired pneumonia: Code(s): J18.9 - Pneumonia, unspecified organism Status: Acute Assessment and Plan: - Chest x-ray shows a left lower lobe posterior pneumonia -04/02- azithromycin 500 mg and ceftriaxone 1 gm -Attempt sputum for culture. Check Legionella and pneumococcal antigens as well as mycoplasma IgM. - on supplemental o2 now - will try to wean if able 04/04- ra since last night. but not much else improved- will order legionella pneumonia - continue flonase, breathing treatment-prn 04/05 Discussed with pharm ID- will stop rocephin and start cefepime, continue doxy. Obtain sputum culture if able. on ra- monitor. IS. out of bed. trend CBC. 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 Check Legionella and pneumococcal antigens as well as mycoplasma IgM. She is clinically compensated with regards to her congestive heart failure. Avoid over-hydration; monitor volume status which I/O and daily weights. Blood pressures were reviewed and they have been stable and her SpO2 has been in the upper 90s on room air. She is in a sinus rhythm. Time Spent With Patient Time with patient: 25 - 35 minutes Subjective Date/time seen: 04/05/24 07:24 Interval history: Narrative retrieved from H/P: ''Narrative: This is an 88-year-old female with paroxysmal atrial fibrillation on chronic anticoagulation, heart failure with mid-range ejection fraction and diastolic dysfunction, hyperlipidemia, gastroesophageal reflux disease, and history of lymphoma who presented to the emergency department via private vehicle from home for evaluation of subjective fever and body aches. The patient provides the following history. She has not been feeling well for a couple of days with generalized malaise, body aches (more so in the shoulders and hips), postnasal drip, headache, and a dry cough. She has felt as though she has been running a fever however her temperature has only been as high as 99.8? F. She has been taking acetaminophen with some benefit. She denies sinus congestion, sore throat, chest and pleuritic pain, vomiting, diarrhea, and dysuria. Of note the patient was recently treated for thrush and she is worried about fungal pneumonia. In the ED: She was afebrile on arrival with stable vital signs. Labs were significant for a WBC count of 9.6, hemoglobin 10.8, platelet 139, sodium 131, BUN 17, creatinine 1.00, CRP 8.3, troponin 0.016. She tested negative for influenza, RSV, and COVID. Chest x-ray showed pneumonia left lung base posteriorly. She was given azithromycin 500 mg and ceftriaxone 1 gm and she is being admitted in this setting as she does not think that she would be able to go home due to weakness. 04/03- pt is seen and examined today. Reports some wheezing overnight- relieved with breathing treatment. Some nausea but able to eat and drink ok without vomiting. 04/04- pt is seen and examined today. Vitals reviewed. Afebrile. She had been on room air since last night- still reports that feeling bad- tired and no energy. c/o headache, sinus pressure, and nausea. NO wheezing. 04/05- seen and examined. Labs are ordered -pending. VS reviewed- off o2-ra. worked with PT/OT. Review of Systems Review of Systems: 12 systems were reviewed and are negative except for as per HPI. ENT: Reports Normal hearing present Cardiovascular: Cardiovascular: Reports dyspnea Respiratory: Respiratory: Reports chest congestion, Reports cough, Reports dyspnea and R
[2024-04-05 07:55] LABS: Hemoglobin 9.8 g/dL (12.0-15.0); Mean Corpuscular HGB Conc 31.6 g/dl (32-36); Mean Corpuscular Hemoglobin 28.1 pg (26-34); Mean Corpuscular Volume 88.8 fl (80-100); Mean Platelet Volume 9.7 fl (7.4-10.4); Platelet Count Result 150 k/mm3 (150-375); Red Blood Count 3.49 M/mm3 (4.2-5.4); White Blood Count 7.9 K/mm3 (4.5-10.0)
[2024-04-05 08:07] LABS: Anion Gap 6 mmol/L (4-12); Blood Urea Nitrogen 14 mg/dL (7-17); Calcium 8.6 mg/dL (8.4-10.2); Carbon Dioxide 28 mmol/L (22-30); Chloride 98 mmol/L (98-107); Estimated CRCL calculation 34 ml/min; Estimated Glomerular Filt Rate 59; Glucose 89 mg/dL (65-110); Potassium 4.2 mmol/L (3.4-5.0); Sodium 132 mmol/L (137-145)
[2024-04-05] MEDS: POLYSACCHARIDE IRON COMPLEX 150 MG CAPSULE PO (08:17)
[2024-04-05] MEDS: DOXYCYCLINE HYCLATE 100 MG TABLET PO ×2 (08:17→20:43)
[2024-04-05 08:18] VITALS: PULSE 76
[2024-04-05] MEDS: PANTOPRAZOLE 40 MG TABLET PO (08:18)
[2024-04-05] MEDS: AMIODARONE HCL 100 MG TABLET PO (08:18)
[2024-04-05] MEDS: guaiFENesin 12 HR 600 MG TABCR PO ×2 (08:19→20:43)
[2024-04-05] MEDS: ROSUVASTATIN 5 MG TABLET PO (08:19)
[2024-04-05] MEDS: SPIRONOLACTONE 25 MG TABLET PO (08:19)
[2024-04-05] MEDS: guaiFENesin/DEXTROMETHORPHAN 10 ML UDC PO ×2 (08:19→20:42)
[2024-04-05] MEDS: APIXABAN 2.5 MG TABLET PO ×2 (08:19→20:43)
[2024-04-05 08:20] VITALS: RESP 18; O2SAT 95
[2024-04-05] MEDS: TIMOLOL MALEATE 0.25% OP SOLN 5 ML BOTTLE 1 DROP EACH EYE ×2 (08:20→20:43)
[2024-04-05] MEDS: FLUTICASONE PROPIONATE 0.05% NA SPR 16 GM BTL (*BKC) 1 SPRAY NASAL (08:20)
[2024-04-05] MEDS: ACETAMINOPHEN 325 MG TABLET 650 MG PO ×2 (08:27→20:42)
[2024-04-05] MEDS: levoFLOXacin 750 MG TABLET PO (12:20)
[2024-04-05 13:40] VITALS: BP 103/48; PULSE 72; RESP 20; TEMP 36.6; O2SAT 97
[2024-04-05 18:38] LABS: Mycoplasma IgM Antibody Titer 55 U/mL
[2024-04-05 19:31] VITALS: BP 119/56; PULSE 77; RESP 18; TEMP 36.8; O2SAT 95
[2024-04-05] MEDS: CEFEPIME 2 GM/NS 50 ML 2 GM/50 ML BAG IVPB (20:41)
[2024-04-05] MEDS: DOCUSATE SODIUM 100 MG CAPSULE PO (20:43)
[2024-04-06] VITALS (10 sets, daily range): BP systolic 116–132; BP diastolic 50–65; PULSE 72–80; RESP 16–20; TEMP 36.4–36.8; O2SAT 94–97
[2024-04-06] MEDS: SUCRALFATE 1 GM TABLET PO ×2 (00:34→23:34)
[2024-04-06] MEDS: ONDANSETRON HCL ODT 4 MG TABLET PO (00:34)
--- NOTE | 2024-04-06 06:31 | PM.IMPN ---
Progress Note: A&P Assessment and Plan (1) Community acquired pneumonia: Code(s): J18.9 - Pneumonia, unspecified organism Status: Acute Assessment and Plan: - Chest x-ray shows a left lower lobe posterior pneumonia -04/02- azithromycin 500 mg and ceftriaxone 1 gm -Attempt sputum for culture. Check Legionella and pneumococcal antigens as well as mycoplasma IgM. - on supplemental o2 now - will try to wean if able 04/04- ra since last night. but not much else improved- will order legionella pneumonia - continue flonase, breathing treatment-prn 04/05 Discussed with pharm ID- will stop rocephin and start cefepime, continue doxy. Obtain sputum culture if able. on ra- monitor. IS. out of bed. trend CBC. 04/06 duonebs, continue antibiotict. 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 Check Legionella and pneumococcal antigens as well as mycoplasma IgM. She is clinically compensated with regards to her congestive heart failure. Avoid over-hydration; monitor volume status which I/O and daily weights. Blood pressures were reviewed and they have been stable and her SpO2 has been in the upper 90s on room air. She is in a sinus rhythm. Time Spent With Patient Time with patient: 25 - 35 minutes Subjective Date/time seen: 04/06/24 0900 Interval history: Narrative retrieved from H/P: ''Narrative: This is an 88-year-old female with paroxysmal atrial fibrillation on chronic anticoagulation, heart failure with mid-range ejection fraction and diastolic dysfunction, hyperlipidemia, gastroesophageal reflux disease, and history of lymphoma who presented to the emergency department via private vehicle from home for evaluation of subjective fever and body aches. The patient provides the following history. She has not been feeling well for a couple of days with generalized malaise, body aches (more so in the shoulders and hips), postnasal drip, headache, and a dry cough. She has felt as though she has been running a fever however her temperature has only been as high as 99.8? F. She has been taking acetaminophen with some benefit. She denies sinus congestion, sore throat, chest and pleuritic pain, vomiting, diarrhea, and dysuria. Of note the patient was recently treated for thrush and she is worried about fungal pneumonia. In the ED: She was afebrile on arrival with stable vital signs. Labs were significant for a WBC count of 9.6, hemoglobin 10.8, platelet 139, sodium 131, BUN 17, creatinine 1.00, CRP 8.3, troponin 0.016. She tested negative for influenza, RSV, and COVID. Chest x-ray showed pneumonia left lung base posteriorly. She was given azithromycin 500 mg and ceftriaxone 1 gm and she is being admitted in this setting as she does not think that she would be able to go home due to weakness. 04/03- pt is seen and examined today. Reports some wheezing overnight- relieved with breathing treatment. Some nausea but able to eat and drink ok without vomiting. 04/04- pt is seen and examined today. Vitals reviewed. Afebrile. She had been on room air since last night- still reports that feeling bad- tired and no energy. c/o headache, sinus pressure, and nausea. NO wheezing. 04/05- seen and examined. Labs are ordered -pending. VS reviewed- off o2-ra. worked with PT/OT. 04/06- labs pending- but yesterday wbc improved -7.9. VS reviewed and stable. On cefepime and doxy. duonebs scheduled to help with congestion and wheezing Review of Systems R
[2024-04-06 06:51] LABS: Hematocrit 32.3 % (37.0-47.0); Hemoglobin 10.4 g/dL (12.0-15.0); Mean Corpuscular HGB Conc 32.2 g/dl (32-36); Mean Corpuscular Hemoglobin 28.5 pg (26-34); Mean Corpuscular Volume 88.5 fl (80-100); Mean Platelet Volume 9.6 fl (7.4-10.4); Platelet Count Result 169 k/mm3 (150-375); Red Blood Count 3.65 M/mm3 (4.2-5.4); Red Cell Distribution Width 14.9 % (11.5-14.5); White Blood Count 6.4 K/mm3 (4.5-10.0)
[2024-04-06 07:00] LABS: Anion Gap 8 mmol/L (4-12); Blood Urea Nitrogen 20 mg/dL (7-17); Calcium 9.4 mg/dL (8.4-10.2); Carbon Dioxide 27 mmol/L (22-30); Chloride 98 mmol/L (98-107); Estimated CRCL calculation 28 ml/min; Estimated Glomerular Filt Rate 47; Glucose 88 mg/dL (65-110); Potassium 4.5 mmol/L (3.4-5.0); Sodium 133 mmol/L (137-145)
[2024-04-06] MEDS: ACETAMINOPHEN 325 MG TABLET 650 MG PO (08:31)
[2024-04-06] MEDS: SPIRONOLACTONE 25 MG TABLET PO (08:32)
[2024-04-06] MEDS: PANTOPRAZOLE 40 MG TABLET PO (08:32)
[2024-04-06] MEDS: DOCUSATE SODIUM 100 MG CAPSULE PO ×2 (08:32→21:45)
[2024-04-06] MEDS: ROSUVASTATIN 5 MG TABLET PO (08:32)
[2024-04-06] MEDS: AMIODARONE HCL 100 MG TABLET PO (08:32)
[2024-04-06] MEDS: CEFEPIME 2 GM/NS 50 ML 2 GM/50 ML BAG IVPB ×2 (08:33→21:48)
[2024-04-06] MEDS: APIXABAN 2.5 MG TABLET PO ×2 (08:33→21:44)
[2024-04-06] MEDS: SACCHAROMYCES BOULARDII 250 MG CAPSULE PO ×3 (08:33→16:55)
[2024-04-06] MEDS: DOXYCYCLINE HYCLATE 100 MG TABLET PO ×2 (08:33→21:44)
[2024-04-06] MEDS: guaiFENesin 12 HR 600 MG TABCR PO ×2 (08:33→21:44)
[2024-04-06] MEDS: TIMOLOL MALEATE 0.25% OP SOLN 5 ML BOTTLE 1 DROP EACH EYE ×2 (08:34→21:47)
[2024-04-06] MEDS: FLUTICASONE PROPIONATE 0.05% NA SPR 16 GM BTL (*BKC) 1 SPRAY NASAL (08:34)
[2024-04-06] MEDS: IPRATROPIUM 0.5 MG/ALBUTEROL SULFATE 2.5 MG AMPUL.NEB 3 ML INHALATION ×2 (13:33→20:46)
[2024-04-06] MEDS: MELATONIN 3 MG TABLET PO (21:46)
[2024-04-07 04:07] VITALS: BP 113/46; PULSE 77; RESP 18; TEMP 36.6; O2SAT 96
[2024-04-07 06:17] LABS: Mean Corpuscular HGB Conc 32.3 g/dl (32-36); Mean Corpuscular Hemoglobin 28.7 pg (26-34); Mean Corpuscular Volume 88.8 fl (80-100); Mean Platelet Volume 9.8 fl (7.4-10.4); Platelet Count Result 187 k/mm3 (150-375); Red Blood Count 3.49 M/mm3 (4.2-5.4); White Blood Count 6.6 K/mm3 (4.5-10.0)
[2024-04-07 06:34] LABS: Anion Gap 6 mmol/L (4-12); Blood Urea Nitrogen 22 mg/dL (7-17); Carbon Dioxide 30 mmol/L (22-30); Chloride 97 mmol/L (98-107); Estimated CRCL calculation 27 ml/min; Estimated Glomerular Filt Rate 47; Glucose 85 mg/dL (65-110); Potassium 4.4 mmol/L (3.4-5.0); Sodium 133 mmol/L (137-145)
[2024-04-07 06:35] LABS: Calcium 8.9 mg/dL (8.4-10.2)
[2024-04-07 07:41] VITALS: PULSE 74; RESP 16
[2024-04-07 07:43] VITALS: O2SAT 96
[2024-04-07] MEDS: IPRATROPIUM 0.5 MG/ALBUTEROL SULFATE 2.5 MG AMPUL.NEB 3 ML INHALATION (07:43)
[2024-04-07 07:49] VITALS: PULSE 75; RESP 16
[2024-04-07] MEDS: ACETAMINOPHEN 325 MG TABLET 650 MG PO (08:52)
[2024-04-07] MEDS: guaiFENesin 12 HR 600 MG TABCR PO (08:52)
[2024-04-07 08:53] VITALS: PULSE 85
[2024-04-07] MEDS: PANTOPRAZOLE 40 MG TABLET PO (08:53)
[2024-04-07] MEDS: AMIODARONE HCL 100 MG TABLET PO (08:53)
[2024-04-07] MEDS: POLYSACCHARIDE IRON COMPLEX 150 MG CAPSULE PO (08:53)
[2024-04-07] MEDS: SPIRONOLACTONE 25 MG TABLET PO (08:53)
[2024-04-07] MEDS: SACCHAROMYCES BOULARDII 250 MG CAPSULE PO (08:53)
[2024-04-07] MEDS: ROSUVASTATIN 5 MG TABLET PO (08:53)
[2024-04-07] MEDS: DOCUSATE SODIUM 100 MG CAPSULE PO (08:54)
[2024-04-07] MEDS: APIXABAN 2.5 MG TABLET PO (08:54)
[2024-04-07] MEDS: CEFEPIME 2 GM/NS 50 ML 2 GM/50 ML BAG IVPB (08:54)
[2024-04-07] MEDS: FLUTICASONE PROPIONATE 0.05% NA SPR 16 GM BTL (*BKC) 1 SPRAY NASAL (08:57)
[2024-04-07] MEDS: TIMOLOL MALEATE 0.25% OP SOLN 5 ML BOTTLE 1 DROP EACH EYE (08:57)
--- NOTE | 2024-04-07 10:51 | PM.DS ---
DS: Admitting Diagnosis Discharge Date 04/07 Admitting Diagnosis congestion, cough DS: Discharge Diagnosis Discharge Diagnosis (1) Community acquired pneumonia: Code(s): J18.9 - Pneumonia, unspecified organism Status: Acute Assessment and Plan: - Chest x-ray shows a left lower lobe posterior pneumonia -04/02- azithromycin 500 mg and ceftriaxone 1 gm -Attempt sputum for culture. Check Legionella and pneumococcal antigens as well as mycoplasma IgM. - on supplemental o2 now - will try to wean if able 04/04- ra since last night. but not much else improved- will order legionella pneumonia - continue flonase, breathing treatment-prn 04/05 Discussed with pharm ID- will stop rocephin and start cefepime, continue doxy. Obtain sputum culture if able. on ra- monitor. IS. out of bed. trend CBC. 04/06 duonebs, continue antibiotict. 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 The patient provides the following history. She has not been feeling well for a couple of days with generalized malaise, body aches (more so in the shoulders and hips), postnasal drip, headache, and a dry cough. She has felt as though she has been running a fever however her temperature has only been as high as 99.8? F. She has been taking acetaminophen with some benefit. She denies sinus congestion, sore throat, chest and pleuritic pain, vomiting, diarrhea, and dysuria. Of note the patient was recently treated for thrush and she is worried about fungal pneumonia. In the ED: She was afebrile on arrival with stable vital signs. Labs were significant for a WBC count of 9.6, hemoglobin 10.8, platelet 139, sodium 131, BUN 17, creatinine 1.00, CRP 8.3, troponin 0.016. She tested negative for influenza, RSV, and COVID. Chest x-ray showed pneumonia left lung base posteriorly. She was given azithromycin 500 mg and ceftriaxone 1 gm and she is being admitted in this setting as she does not think that she would be able to go home due to weakness. 04/03- pt is seen and examined today. Reports some wheezing overnight- relieved with breathing treatment. Some nausea but able to eat and drink ok without vomiting. 04/04- pt is seen and examined today. Vitals reviewed. Afebrile. She had been on room air since last night- still reports that feeling bad- tired and no energy. c/o headache, sinus pressure, and nausea. NO wheezing. 04/05- seen and examined. Labs are ordered -pending. VS reviewed- off o2-ra. worked with PT/OT. 04/06- labs pending- but yesterday wbc improved -7.9. VS reviewed and stable. On cefepime and doxy. duonebs scheduled to help with congestion and wheezing Time Spent with Patient Time attestation: Total time spent providing and/or coordinating discharge services: Exam Narrative: General: Nontoxic-appearing elderly female. Weight: 52.62 kg. BMI: 19.3. HEENT: PERRL, EOMI. Sclera anicteric. Oral mucosa moist. Oropharynx cooper
[2024-04-10 03:19] LABS: Legionella pneumophila Ag Ur NOT DETECTED
--- NOTE | 2024-04-13 13:03 | PC.NURSE ---
Sputum cx is negative.
== END 2024-04-07 12:10 | disposition home health service (06) | DRG 194 ==
LOC: ANHED 14:39 → ANH2MED 15:04
PROVIDERS: Physician Assistant; Admitting Provider General Practice; Emergency Provider Physician Assistant; PCP Internal Medicine; Visit Provider Nurse Practitioner
DX: J18.9 Pneumonia, unspecified organism (principal); I50.22 Chronic systolic (congestive) heart failure; E78.5 Hyperlipidemia, unspecified; I48.0 Paroxysmal atrial fibrillation; I11.0 Hypertensive heart disease with heart failure; K21.9 Gastro-esophageal reflux disease without esophagitis; Z20.822 Contact with and (suspected) exposure to COVID-19; Z86.73 Personal history of transient ischemic attack (TIA), and cerebral infarction without residual deficits; Z79.01 Long term (current) use of anticoagulants
CPT/HCPCS: 36415; 71045; 71046; 80048; 80053; 81001; 83605; 83690; 83735; 84484; 85025; 85027; 85610; 85730; 86140; 86738; 87040; 87070; 87086; 87205; 87449; 87637; 93005; 94640; 96365; 96375; 97116; 97161; 97165; 99285; A9270; G0378; J0456; J0692; J0696

== ENCOUNTER 2025-01-15 12:03 | Emergency (ER) | payer MEDICARE, BC, SELFPAY ==
--- NOTE | ~2025-01-15 | CT_ITS ---
CLINICAL INDICATION: Abnormal x-ray. COMPARISON: Reference is made to a plain film evaluation of the bilateral hips dated 01/15/2025. TECHNIQUE: Computed tomography (CT) of the pelvis was performed without intravenous contrast. The dos e-length product was 148.50 mGy-cm. FINDINGS/OBSERVATIONS: Subchondral erosive change joint irregularity and sclerosis at the level of the pubic symphysis is id entified, right greater than left. Surrounding soft tissue reaction is also noted. No discrete fracture deformity is appreciated. The bladder is only minimally distended, and otherwise unremarkable. Significant degenerative disease within the visualized portion of the lumbar spine, with grade 1 ante rolisthesis of L4 over L5. Disc space narrowing at the level of L5/S1 is noted, with endplate sclerosis and vacuum phenomena. Significant facet arthropathy is noted. Colonic diverticulosis without surrounding inflammatory change. IMPRESSION: No displaced fracture deformity is appreciated within the right pubic bone. Findings consistent with osteitis pubis, as detailed above Reviewed, dictated and finalized at location A.
--- NOTE | ~2025-01-15 | XR_ITS ---
XR hip BI 2V w AP pelvis Ordering provider: Jorge Junior MD History: . hip pain . Comparison: January 10, 2025 FINDINGS: BONES: Possibility of healing fracture in the right pubic bone is not excluded.. HIP JOINT SPACES: Severe narrowing of both joints suggestive of severe osteoarthritic changes. SACROILIAC JOINT SPACES/LUMBAR SPINE: The sacroiliac joint spaces are normal. Mild degenerative leos es of the visualized lower lumbar spine. PUBIC SYMPHYSIS: Pubic symphysitis. SOFT TISSUES: Normal. IMPRESSION: Possible healing fracture in the right pubic bone. 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 Reviewed, dictated and finalized at location A.
--- NOTE | ~2025-01-15 | XR_ITS ---
EXAMINATION: XR lumbar spine 2-3V DATE: 01/15/2025 13:15 INDICATION: Low back pain TECHNIQUE: Anteroposterior and lateral views of the lumbar spine, and cone-down lateral view of the l umbosacral junction were obtained. COMPARISON: None. FINDINGS: 20 degree thoracolumbar levoscoliosis. 5 mm anterolisthesis L4 on L5. 3 mm retrolisthesis L5 on S1. V ertebral body heights are normal. Severe right-sided prominent disc height loss at L1-L2 and L2-L3. A dditional severe disc height loss at L5-S1. Moderate disc height loss at T10-T11 and T12-L1. Mild dis c height loss at L3-L4 and L4-L5. Moderate to severe facet osteoarthritis in the mid to lower lumbar spine. Mild bilateral sacroiliac osteoarthritis. Atherosclerotic abdominal aorta. Lung bases are june r. IMPRESSION: 1. 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 Reviewed, dictated and finalized at location B.
--- NOTE | 2025-01-15 12:06 | PC.NURSE ---
Patient placed in wheelchair in Triage
[2025-01-15 12:20] VITALS: BP 136/41; PULSE 80; RESP 18; TEMP 36.3; O2SAT 98
[2025-01-15 12:48] VITALS: BP 139/46; PULSE 79; RESP 16; O2SAT 100
--- OUTSIDE RECORDS SUMMARY | 2025-01-15 13:15 | XMS_ITS | Encounter Summary ---
Author Organization [facility] Address [address] [place] [address] Phone Care Team Providers Care Audiology Technician Name Role Phone Miscellaneous, Not In File Unavailable Unava ilable Sheryl Latham MD Unavailable [phone] Ashlee Doyle MD Primary Care Provider [phone] Jonh Junior MD Unavailable Encounter Details Date Type Department Care Team (Late st Contact Info) Description 01/11/2025 Telephone [facility] Cardiology [address] [facility] Advanced Medicine 8th [place] [address] [place] [address] Jonh Junior MD [address] [place] [address] Social History Tobacco Use Types Packs/Day Years Used Date Smoking Tobacco: Never Smokeless Tobacco: Never Alcohol Use Standard Drinks/Week Comments Yes 0 (1 standard drink = 0.6 oz pur e alcohol) AUDIT-C Answer Date Recorded Q1: How often do you have a drink containing alc ohol? Never 12/22/2023 Average Number of Drinks Not on file 024 Frequency of Binge Drinking Not on file 12/2023 Personal Safety Answer Date Recorded Have you ever been in or are you currently in a harmful physical or emotional relationship or is someone making you feel afraid or unsafe? 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 She had no other questions @ this time * Telephone Encounter - Jonh Junior MD - 01/11/2025 9:08 PM CDT Definitely no cardiac concerns with a lidocaine patch. Can be very helpful for certain pains and hopefully it provides her some relief. * Telephone Encounter - Zach Pardo - 01/11/2025 12:40 PM CDT [place] Patient is calling to inquire if its ok for her to use a Lidocaine patch? She also has Prednisone and would like to know if this is safe her to take as well? documented in this encounter Plan of Treatment Not on file documented as of this encounter Visit Diagnoses Not on filedocumented in this encounter Care Teams Audiology Technician Relationship Specialty Start Date End Date Ashlee Doyle MD [address] [place] [address] PCP - General Internal Medicine 09/05/23 Miscellaneous, Not In File 03/24/21 Sheryl Latham MD Medical Oncologist/Residence Manager Medical Oncology 05/12/21 Jonh Junior MD [address] [place] [address] Referring Physician Cardiology 09/05/23 documented as of this encounter
--- OUTSIDE RECORDS SUMMARY | 2025-01-15 13:15 | XMS_ITS | Clinical Summary ---
Author Organization [facility] Address [address] [place] [address] Care Team Providers Care Building Construction Foreman Name Role Phone Miscellaneous, Not In File Unavailable Unava ilable Sheryl Latham MD Unavailable Ashlee Doyle MD Primary Care Provider [phone] Jonh Junior MD Unavailable Allergies Active Allergy Reactions Criticality Noted Date Comments Solifenacin Other (See comments) Low 11/25/2022 Dry mouth Sulfa (Sulfonamide Antibiotics) Rash,Other (See comments) High 07/02/2014 Sulfur Dioxide Swelling Medium 11/14/2023 Medications fluticasone (FLONASE) 50 mcg/actuation nasal spray Administer 1 spray into each nostril daily 12/18/19 15 Active timolol (TIMOPTIC) 0.25 % ophthalmic solution Administer 1 drop into both eyes 2 (two) times a day Active acetaminophen (TYLENOL) 500 mg tabletIndication s:Arthritis Take 2 tablets (1,000 mg total) by mouth 3 (three) times a day as needed for pain 180 tablet 11 08/21/20 21 Active hydrocortisone (ANUSOL-HC) 2.5 % rectal cream 2 (two) times a day 10/11/19 22 Active rosuvastatin (CRESTOR) 5 mg tabletIndication s:Coronary artery disease involving pit [place] coronary artery of [place] heart without angina pectoris Take 1 tablet (5 mg total) by mouth daily 90 tablet 2 01/27/20 22 Active melatonin 3 mg tablet extended release Take 1 tablet by mouth as needed 04/20/20 23 Active cyanocobalamin (Vitamin B-12) 1,000 mcg tablet Take 1 tablet (1,000 mcg total) by mouth daily 10/02/19 24 Active polysaccharide iron complex (NU-IRON) 150 mg iron capsule Take 1 capsule (150 mg total) by mouth every other day 10/02/19 24 Active amiodarone (PACERONE) 100 mg tabletIndication s:Atrial fibrillation with RVR (HCC),Essential hypertension Take 1 tablet (100 mg total) by mouth daily 30 tablet 11 03/07/20 24 025 Active Eliquis 2.5 mg tablet TAKE 1 TABLET BY MOUTH EVERY 12 HOURS 180 tablet 3 03/21/20 24 Active sacubitriL-valsa rtan (ENTRESTO) 24-26 mg tabletIndication s:chronic heart failure Take 1 tablet by mouth 2 (two) times a day 180 tablet 3 04/26/20 24 Active famotidine (PEPCID) 20 mg tablet Take 1 tablet (20 mg total) by mouth 2 (two) times a day Active rosuvastatin (CRESTOR) 5 mg tablet Take 1 tablet (5 mg total) by mouth daily Active pantoprazole DR (PROTONIX) 40 mg EC tablet Take 1 tablet (40 mg total) by mouth daily before breakfast 90 tablet 3 10/30/19 25 026 Active estradioL (ESTRACE) 0.01 % (0.1 mg/gram) vaginal cream Apply 0.5-1g nightly to vagina for 1 week, then Tuesday// Tuesday 42.5 g 5 11/15/19 25 025 Active spironolactone (ALDACTONE) 25 mg tablet TAKE 1 TABLET BY MOUTH EVERY DAY IN THE MORNING 90 tablet 1 12/19/19 25 Active spironolactone (ALDACTONE) 25 mg tablet Take 1 tablet (25 mg total) by mouth every morning 90 tablet 3 10/31/19 24 025 Discontinued Active Problems Problem Noted Date Diagnosed Date Esophageal dysmotility 02/21/2024 Esophageal dysphagia 02/21/2024 Insomnia 04/14/2023 Hypomagnesemia 01/26/2023 Tendinitis of left rotator cuff 01/18/2023 Pain in joint of left shoulder 01/18/2023 Arthralgia of both knees 10/18/2022 Vitamin B deficiency 10/11/2022 Mixed stress and urge urinary incontinence 10/11 Increased frequency of urination 07/09/2022 Osteoarthritis of both knees 06/15/2022 Visual disturbance 05/20/2022 Assessment & Plan (05/20/2022 4:17 PM CDT): - History of dry AMD and myopic degeneration - Patient with a near long history of sudden visual phenomenon that include squiggles, color changes, and sometimes black areas in her vision. Last 15- 20min. Were occurring daily but more recently less frequently. Not associated with headaches. - Today VA 20/70+ OD, 20/80+ which appears stable from prior notes from [facility] - Fundus exam and photos appear stable from prior records - Likely represents migrainous phenomenon. Occipital seizures are less likely given her typical unilateral presentation. Vascular etiologies are also possible although the frequency and chronicity without clear ischemic damage make these unlikely. - Follow-up with neuro-ophthalmology PRN Suspected glaucoma of both eyes 04/01/2022 Assessment & Plan (05/20/2022 4:13 PM CDT): - Polar thinning on prior RNFL on 03/2022 - Patient should continue to monitor with her general maintenance engineer Assessment & Plan (04/01/2022 3:54 PM CDT): Difficult to determine if glaucomatous process occurring vs. visual field (VF) defects related to retinal change. Enlarged blind spot on Johnson visual field (HVF) consistent with extensive PPA. Very difficult to assess ONH due to extensive PPA. The intraocular pressure (IOP) is high normotensive both eyes (OU) on Timolol BID both eyes (OU). Recommended continuing Timolol BID both eyes (OU) in effort to protect from any possible glaucomatous change. Monitor. Ocular migraine 03/31/2022 Assessment & Plan (04/01/2022 3:56 PM CDT): No retinal holes/tears/ detachments. No retinal changes consistent with lymphoma. Symptoms typical of ocular migraine. Patient also has extensive retinal damage likely contributing to visual symptoms. After lengthy discussion of findings, patient would prefer additional eval with neuro-op out of abundance of caution due to MRI findings showing possible microvascular ischemic changes int he occipital lobe. Educated treatment likely not indicated for this. 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 Holcomb for monitoring Assessment & Plan (04/28/2022 3:33 PM CDT): Diffuse retinal thinning, thin choroid both eyes (OU) in patient with history of myopia, consistent with myopic degeneration vs NEAMD both eyes (OU) and etiology of suboptimal central visual acuity (VA). Follow up with Dr. Holcomb as scheduled for ongoing management Assessment & Plan (04/01/2022 3:52 PM CDT): Severe atrophy of both eyes causing poor BCVA. Educated on findings including extensive ONH PPA. History of epiretinal membrane (ERM) peel right eye (OD) 2007 at [facility]. Asked patient to bring notes or forward prior to next visit. Follows with Dr. Izaguirre at [facility]. Will have second opinion with [facility] next available per patient request. CVA (cerebral vascular accident) 01/13/2022 History of severe acute resp iratory syndrome coronavirus 2 (SARS-CoV-2) disease 12/11/2021 On manager intermediate drug therapy 12/11/2021 Bradycardia 12/04/2021 Sinus pause 12/04/2021 Immunocompromised 10/16/2021 Adrenal mass 07/24/2021 Ischemic cardiomyopathy 07/21/2021 Macrocytosis 07/07/2021 Paroxysmal atrial fibrillation 06/23/2021 Diffuse high grade B-cell lymphoma 06/23/2021 Adrenal insufficiency 05/08/2021 Assessment & Plan (05/08/2021 9:14 PM CDT): Possible AI; had wonderful BP response to dexamethasone and her kayla stim test was borderline right around 16. Na was not low and K not high to suggest primary AI; TSH normal and no temporal hemianopsia to suggest pituitary disease. CT chest saw the adrenals and saw left adrenal enlargement. She has responded well to R-CHOP which make DLBCL infiltration of bilateral adrenals seem less likely. - continuing pred 06/23 for now - checking AM renin/margy - consider Endo consult to help clarify Assessment & Plan (05/08/2021 12:30 PM CDT): Hypotension yesterday with SBP 70's; minimal response to midodrine, marginal kayla stim test, started on Dexamethasone 2mg q6h with significant improvement -will change dex to Prednisone 10 mg in AM and 5mg in PM Sepsis 05/08/2021 Assessment & Plan (05/08/2021 9:09 PM CDT): Febrile, tachy, tachypneic, leukocytosis, and pneumonia on admit. Now much improved. Will get MRSA nasal swab to try help guidance of narrowing off vanc. Completed azithromycin course. - vancomycin 1250 x1, now 750 mg IV q 24 (05/06 - present); checking vanc trough 05/09 at 0800 - cefepime 2000 q 12 for CKD stage 3 dosing (05/06 - present) - second pneumonia in a few weeks so changing PPI to famotidine to try to reduce risk Diarrhea of presumed infectious origin Assessment & Plan (05/08/2021 9:15 PM CDT): New in past 24 hours. Concern for C diff with watery quality. Checking C diff. Atrial fibrillation with RVR 05/07/2021 Assessment & Plan (05/08/2021 9:10 PM CDT): Likely stress of sepsis precipitated this with underlying CAD, especially in LAD (prior LBBB, new hypokinesis). Symptoms improved after rhythm control with amio bolus then gtt - amio 400 TID for 1 week; on 05/15 change to amio 400 q day; on 05/22 change to amio 200 q day - apixiban 2.5 BID (reduced dose with age, weight) Assessment & Plan (05/08/2021 12:36 PM CDT): 05/06 Episode of afib with RVR overnight, rate 140-150's, SBP 80's -s/p Amiodarone bolus 150mg x 1, followed by Amiodarone gtt at 1mg/min; 2gm magnesium given and 500 ml LR -Cardio-Onc consulted, appreciate recs -start Amiodarone 400 mg TID x 7 days, then Amiodarone 400 mg daily x 7 days, then Amiodarone 200 mg daily -Apixaban 2.5 mg BID -asa 81 mg daily Severe malnutrition 05/07/2021 Assessment & Plan (05/08/2021 12:39 PM CDT): -nutrition following Acute respiratory failure with hypoxia Overview (05/08/2021): Initially due to pneumonia and pulmonary edema, later due more to afib with RVR. Improving with treatment of these etiologies. Assessment & Plan (05/07/2021 2:37 PM CDT): Suspect 2/2 infectious process, less likely viral, possible cardiomyopathy component, with volume overload, has received Moderna Covid vaccination -CT with bilateral upper lobes with GGO, No PE, and severe pulmonary edema -respiratory distress post CT scan and LR bolus requiring NRB-> Bipap (didn't tolerate Bipap mask)-> Opti-flow 50L/80% -given 20 mg lasix in ED, since ICU admit, weaned to 3L NC -f/u blood cultures, RVP negative -continue Cefepime, Vancomycin and Azithromycin -formal Echocardiogram with new WMA; consulted Cardio-Oncology; appreciate recs -LE duplex negative -prn duonebs Elevated troponin 05/06/2021 Assessment & Plan (05/08/2021 12:38 PM CDT): -p/w pleuritic chest pain with inspiration, worsening pain when desaturating; given ASA 162 mg, Lovenox 60 mg, Nitro gtt -now down trending-troponin 98->575->706->1018->779-> 306 -EKG with incomplete LBBB -most recent Echo on 02/13/21 with Grade II diastolic dysfunction, EF 64% -05/06 Echocardiogram with new apical and hypokinesis of apical, anteroseptal, inferoseptal tavares, EF 51% -Cardio-Oncology following, appreciate recs -Apixaban 2.5mg bid -asa 81 mg daily Orthostatic hypotension 03/21/2021 Assessment & Plan (05/08/2021 12:43 PM CDT): Improvement with steroids; continue prednisone as above -discontinue Midodrine Assessment & Plan (03/21/2021 4:06 AM CDT): -Start IVF overnight for borderline BP. Neutropenic fever 03/20/2021 Assessment & Plan (03/21/2021 4:05 AM CDT): -Possible pulmonary vs abdominal source. CXR with small patchy opacity in right middle lobe. -Blood cultures in process, continue empiric coverage with cefepime/vancomycin. Malignant lymphoma of lymph nodes 02/22/2021 Persons encountering health services in other specified circumstances 02/19/2021 DLBCL (diffuse large B cell lymphoma) 02/18/2021 Assessment & Plan (05/08/2021 9:14 PM CDT): Diagnosed several months ago. Following with Dr. Latham. Completed 4 cycles R-CHOP, last 04/23. Not neutropenic. Assessment & Plan (05/06/2021 4:48 PM CDT): Diffuse large B-cell lymphoma diagnosed 02/13/21 by core needle biopsy of right cervical node. GCB subtype, Ki67 70%. FISH positive for MYC rearrangement. Stage II, IPI score 2 (age, LDH). -follows with Dr Hall -s/p R-CHOP x4 cycles (02/19/21-04/23/21) -Notify Oncology of admit -f/u recs Assessment & Plan (03/21/2021 4:04 AM CDT): -Patient follows Dr. Latham in oncology, currently on R-CHOP, received C2D1 on 03/12/21. -Continue prophylaxis with acyclovir. -Med onc consult. Presyncope 02/15/2021 Assessment & Plan (02/16/2021 2:01 PM CDT): Had episode of lightheadedness + feeling like about to pass out on 02/15. BP 84/51, improved to 120/58 w/o intervention. Given 500ccIVF afterwards Suspect carotid sinus- stimulation from R-neck mass - no episodes since 02/15 - Will continue to monitor Assessment & Plan (02/15/2021 12:31 PM CDT): Had episode of lightheadedness + feeling like about to pass out on 02/15. BP 84/51, improved to 120/58 w/o intervention. Suspect carotid sinus stimulation from R-neck mass - 500cc IVF today - Will continue to monitor - Place telemetry Swelling of right upper extremity 02/12/2021 Assessment & Plan (02/16/2021 2:01 PM CDT): Patient with right upper extremity swelling for the last week that is likely a result of obliteration of the R subclavian vein by her neck mass. She also reportedly was started on Eliquis for a RUE DVT 02/04. - BUE dopplers here show compression of RUE veins 2/2 mass, no e/o DVT. No indication for AC. Assessment & Plan (02/15/2021 12:28 PM CDT): Patient with right upper extremity swelling for the last week that is likely a result of obliteration of the R subclavian vein by her neck mass. She also reportedly was started on Eliquis for a RUE DVT 02/04. - BUE dopplers here show compression of RUE veins 2/2 mass, no e/o DVT. No indication for AC. Assessment & Plan (02/14/2021 3:14 PM CDT): Patient with right upper extremity swelling for the last week that is likely a result of obliteration of the R subclavian vein by her neck mass. She also reportedly was started on Eliquis for a RUE DVT 02/04. - BUE dopplers here show compression of RUE veins 2/2 mass, no e/o DVT. No indication for AC. Assessment & Plan (02/13/2021 12:11 PM CDT): Patient with right upper extremity swelling for the last week that is likely a result of obliteration of the R subclavian vein by her neck mass. She also reportedly was started on Eliquis for a RUE DVT 02/04. - BUE dopplers here show compression of RUE veins 2/2 mass, no e/o DVT. No indication for AC. Neck mass 02/11/2021 Assessment & Plan (02/16/2021 2:01 PM CDT): C/f malignancy (i.e. lymphoma). CT neck with increased size of a large right supraclavicular soft tissue mass measuring 10.2 x 2.5 x 5.1 cm with mass effect on the trachea. The mass encases the right common carotid, subclavian and axillary arteries and invades the right internal jugular vein with likely involvement of the brachial plexus. No e/o mets on CT C/A/P & PET. - S/p US-guided core biopsy 02/13, path pending - Onc following. Plans to start treatment inpatient. 100mg Prednisone daily for now. TLS labs daily - ENT and thoracic following - no need to carotid precautions per ENT Assessment & Plan (02/15/2021 12:28 PM CDT): C/f malignancy (i.e. lymphoma). CT neck with increased size of a large right supraclavicular soft tissue mass measuring 10.2 x 2.5 x 5.1 cm with mass effect on the trachea. The mass encases the right common carotid, subclavian and axillary arteries and invades the right internal jugular vein with likely involvement of the brachial plexus. No e/o mets on CT C/A/P & PET. - S/p US-guided core biopsy 02/13, path pending - Onc following. Plans to start treatment inpatient. 100mg Prednisone daily for now. TLS labs daily - ENT and thoracic following - no need to carotid precautions per ENT Assessment & Plan (02/14/2021 3:14 PM CDT): C/f malignancy (i.e. lymphoma). CT neck with increased size of a large right supraclavicular soft tissue mass measuring 10.2 x 2.5 x 5.1 cm with mass effect on the trachea. The mass encases the right common carotid, subclavian and axillary arteries and invades the right internal jugular vein with likely involvement of the brachial plexus. No e/o mets on CT C/A/P & PET. - S/p US-guided core biopsy 02/13, path pending - Onc following. Plans to start treatment inpatient. 100mg Prednisone daily for now. TLD labs q8hr - ENT and thoracic following - no need to carotid precautions per ENT Assessment & Plan (02/13/2021 12:10 PM CDT): C/f malignancy (i.e. lymphoma). CT neck with increased size of a large right supraclavicular soft tissue mass measuring 10.2 x 2.5 x 5.1 cm with mass effect on the trachea. The mass encases the right common carotid, subclavian and axillary arteries and invades the right internal jugular vein with likely involvement of the brachial plexus. No e/o mets on CT C/A/P & PET. - S/p US-guided core biopsy today, f/u results - Onc following, plan to transfer to oncology when bed available. Start prednisone 100mg daily, trend TLS labs. 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 Follows with Cardiology. - Continue statin (simvastatin 5mg). Patient has been resistant to increasing statin dose in the past - ASA held for biopsy. Will continue to hold in case more procedures needed Assessment & Plan (02/15/2021 12:27 PM CDT): History of non-obstructive CAD. Follows with Cardiology. - Continue statin (simvastatin 5mg). Patient has been resistant to increasing statin dose in the past - ASA held for biopsy. Will continue to hold in case more procedures needed Assessment & Plan (02/14/2021 3:13 PM CDT): History of non-obstructive CAD. Follows with Cardiology. - Continue statin (simvastatin 5mg). Patient has been resistant to increasing statin dose in the past - ASA held for biopsy. Will continue to hold in case more procedures needed Assessment & Plan (02/12/2021 1:03 AM CDT): History of non-obstructive CAD. Follows with Cardiology. - Continue aspirin and statin. Patient has been resistant to increasing statin dose in the past. 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 Hold home Irbesartan Assessment & Plan (02/15/2021 12:27 PM CDT): Episode of pre-syncope on 02/15. Hold home Irbesartan Assessment & Plan (02/14/2021 3:12 PM CDT): - Continue irbesartan, 37.5mg (home dose is 75) Assessment & Plan (02/12/2021 1:03 AM CDT): - Continue irbesartan. Osteopenia 12/10/2013 Overview (12/24/2016): Osteopenia Gastroesophageal reflux disease 12/10/2013 Overview (12/24/2016): GERD (gastroesophageal reflux disease) Assessment & Plan (05/06/2021 5:15 PM CDT): -continue PPI Assessment & Plan (02/16/2021 2:01 PM CDT): - Continue PPI Assessment & Plan (02/15/2021 12:27 PM CDT): - Continue PPI Assessment & Plan (02/14/2021 3:12 PM CDT): - Continue PPI Assessment & Plan (02/12/2021 1:01 AM CDT): - Continue PPI. 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 Thrombosed external hemorrhoids 09/17/2011 Hyperlipidemia 07/24/2010 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 Encounters Date Type Department Care Team Description 01/11/2025 Telephone [facility] Cardiology [id number] [place] [address] [place] [address] Jonh Junior MD 11/20/2024 Results Follow-Up [facility] [address] [place] [address] India Contreras DO 11/15/2024 1:27 PM COSMETOLOGIST - 11/15/2024 11:59 PM COSMETOLOGIST Hospital Encounter [facility] [address] [place] [address] Vaginal irritation Discharge Disposition: Discharge to home or self care 11/15/2024 1:00 PM COSMETOLOGIST Office Visit [facility] [address] [place] [address] India Contreras DO Encounter for annual routine gynecological examination (Primary Dx); Vaginal irritation; Vaginal atrophy 10/30/2024 10:00 AM COSMETOLOGIST Office Visit [facility] Gastroenterology [facility] [place] [address] Dallas Weston MD Esophageal dysphagia (Primary Dx); Achalasia; Dyspepsia; Aimee infection, esophageal (HCC) from Last 3 Months Immunizations Immunization Administration Dates Next Due COVID-19 mRNA (Check) 0.3 m L (30 mcg) vaccine (12 years and up) 06/10/2023 Hep A, Adult 01/30/2008,06/05/2007 Hep A, Unspecified 01/30/2008,06/05/2007 Hep B Vaccine 01/30/2008,07/07/2007,06/05/2007 Hep B, Unspecified 01/30/2008 Influenza, Quadrivalent, Hig h Dose, Preservative Free, Intrr 08/06/2022,05/27/2020 Influenza, Quadrivalent, Spl it, Intramuscular 06/19/2021,05/27/2020,06/29/2019,05/20,06/03/2017,05/03/2016 Influenza, Trivalent, Adjuva nted, Intramuscular 06/29/2019 Influenza, Trivalent, Cell Culture-based MDCK, Preservative Free, Antibiotic Free, Intramuscular 06/10/2023 Influenza, Trivalent, High D ose, Split, Preservative Free, Intramuscular 05/30/2018,06/04/2017,05/21/2016,06/06 Influenza, Trivalent, IM (MDV) 4,07/14/2013,09/09/2012,08/16,08/30/2000,07/29/1999 Moderna SARS-CoV-2 Monovalen t Vaccination (12+ YRS) 12/02/2020,10/22/2020 Pfizer SARS-CoV-2 Monovalent Vaccination (12+ Yrs) PURPLE 06/19/2022,12/18/2021,08/19/2021,12/01 Pneumococcal Conjugate PCV 13 03/01/2015 Pneumococcal Polysaccharide PPV23 05/21/2009, RSV Vaccine, Pref, Recombina nt, Subunit, Adjuvanted, PF, IM (Arexvy) 06/10/2023 Td, Unspecified 06/19/2016 Td, adsorbed 06/19/2016 Tdap 11/10/2012 ZOSTER LIVE 03/29/2019, 9,09/19/2013,11/12 ZOSTER Recombinant 03/29/2019,09/21/2018, 018 Surgical History Surgery Date Site/Laterality Comments TOTAL VAGINAL HYSTERECTOMY 09/19/1971 - 09/18/1972 for infections all the time' CATARACT EXTRACTION 09/19/2008 - 09/18/2009 MELANOMA RESECTION 09/19/2006 - 09/18/2007 TONSILLECTOMY 09/19/1957 - 09/18/1958 US GUIDED BIOPSY LYMPH NODE SUPERFICIAL LEFT 02/13/2021 N/A EYE SURGERY 04/12/2008 Left macular pucker Medical History Medical History Date Comments Hypertension Migraine headache Anemia GERD (gastroesophageal reflux disease) Hyperlipidemia Mitral valve prolapse Osteoarthritis Osteopenia Seasonal allergies Macular degeneration Atrial fibrillation (HCC) Family History Medical History Relation Name Comments Diabetes Daughter Alcohol abuse Father Liver disease Father COD at age 50 Aneurysm Mother COD at age 81 Heart attack Mother Hypertension Mother Hypertension Sister Relation Name Status Comments Daughter Father Mother Sister Social History Tobacco Use Types Packs/Day Years Used Date Smoking Tobacco: Never Smokeless Tobacco: Never Tobacco Cessation:Counseling Given: Not Answered Alcohol Use Standard Drinks/Week Comments Yes 0 [...] on file Legal Sex Female 2:10 AM COSMETOLOGIST Gender Identity Not on file Sexual Orientation Not on file Occupation Industry Job Start Date Job End Date retired Not on file Not on file Not on file Obstetrics History Para Term AB IAB SAB Ectopic Multiple Livin g Live Births 2 2 2 0 0 0 0 0 0 2 2 Date Outcome GA Total Labor Labor//3rd Weight Sex Type Anes PTL Karen A1 A5 Name Clin 02/04 59 Term 3.629 kg (8 lb) M Vaginal Living Complications:None 05/07 64 Term 3.771 kg (8 lb 5 oz) F Vaginal Living Complications:None Last Filed Vital Signs Vital Sign Reading Time Taken Comments Blood Pressure 120/60 11/15/2024 12:54 PM COSMETOLOGIST Pulse 72 10/30/2024 9:57 AM COSMETOLOGIST Temperature 36.2 C (97.1 F) 10/30/2024 9:57 AM COSMETOLOGIST Respiratory Rate 16 08/30/2024 10:38 AM COSMETOLOGIST Oxygen Saturation 97% 08/30/2024 10:38 AM COSMETOLOGIST Inhaled Oxygen Concentration - - Weight 54.9 kg (121 lb) 11/15/2024 12:54 PM COSMETOLOGIST Height 165.1 cm (5' 5 ) 11/15/2024 12:54 PM COSMETOLOGIST Body Mass Index 20.14 11/15/2024 12:54 PM COSMETOLOGIST Plan of Treatment Health Maintenance Due Date Last Done Comments Depression Screening 1935 Well Visit 65+ 2002 Covid-19 Vaccine (2023-2 5 season) 2024 06/10/2023, 06/19/2022, 12/18/2021, Additional history exists Influenza Vaccine (Season Ended) 2025 06/10/2023, 08/06/2022, 06/19/2021, Additional history exists Fall Risk Assessment 06/20/2025 06/20/2024 DTaP/Tdap/Td Vaccine (4 - Td or Tdap) 06/19/2026 06/19/2016, 06/19/2016, 11/10/2012 Hepatitis B Screening Completed 01/30/2008 , 01/30/2008, 07/07/2007, Additional history exists Pneumococcal vaccine 65+ Completed 015, 05/21/2009, 11/10/2008 Zoster Vaccine Completed 03/29/2019, 03/19, 09/21/2018, Additional history exists Procedures Procedure Name Priority Date/Time Associated Diagnosis Comments VAGINITIS PANEL Routine 11/15/2024 3:37 PM COSMETOLOGIST Vaginal irritation from Last 3 Months Results * Vaginitis panel Vaginal (11/15/2024 3:37 PM COSMETOLOGIST) Aimee DNA probe Not Detected Not Detected Comment:Testing performed by : [facility], [address] [place] [address]., [id number] Gardnerella DNA probe Not Detected Not Detected BENJAMIN Comment:Testing performed by : [facility], [address] [place] [address]., [id number] Trichomonas DNA probe Not Detected Not Detected BENJAMIN Comment: Interpretive Data Testing performed by [facility] via Affirm VPIII Microbial Identification Test, a DNA probe test for use in the detection and identification of Aimee species, Gardnerella vaginalis and Trichomonas vaginalis nucleic acid in vaginal fluid specimens from patients with symptoms of vaginitis/vaginosis. Negative results for these tests suggest the patient does not have candidiasis, bacterial vaginosis and/or trichomoniasis when consistent with clinical signs and symptoms. Current interpretive data was last revised on 2020. Testing performed by: [facility], [address] [place] [address]., [id number] Vaginal 11/15/2024 3:37 PM COSMETOLOGIST 11/16/2024 1:52 PM COSMETOLOGIST India Contreras DO LAB MICROBIOLOGY - GENE RAL ORDERABLES Final Result BENJAMIN [id number] [place] [address] from Last 3 Months Insurance MEDICARE REPLACED BY [facility] MEDICARE MEDICARE ANTH ACCESS CHOICE ANTH ACCESS MEDICARE [facility] FEDERAL Advance Directives For more information, please contact: [phone] * Full Code (Latest Code Status on File) Date Activated Date Inactivated Comments 06/20/2024 11:44 AM 06/20/2024 5:41 PM * Full Code Date Activated Date Inactivated Comments 01/05/2023 11:29 PM 01/11/2023 8:13 PM * Full Code Date Activated Date Inactivated Comments 05/06/2021 12:58 PM 05/11/2021 10:39 PM * Full Code Date Activated Date Inactivated Comments 03/21/2021 4:54 AM 03/24/2021 6:20 PM * Full Code Date Activated Date Inactivated Comments 02/11/2021 11:35 PM 02/20/2021 8:13 PM Care Teams Building Construction Foreman Relationship Specialty Start Date End Date Ashlee Doyle MD [address] [place] [address] PCP - General Internal Medicine 09/05/23 Miscellaneous, Not In File 03/24/21 Sheryl Latham MD Medical Oncologist/Production Packager Medical Oncology 05/12/21 Jonh Junior MD [address] [place] [address] Referring Physician Cardiology 09/05/23
--- OUTSIDE RECORDS SUMMARY | 2025-01-15 13:15 | XMS_ITS | Referral Summary ---
Author Organization [facility] Address [address] [place] [address] Care Team Providers Care Windshield Technician Name Role Phone Miscellaneous, Not In File Unavailable Unava ilable Sheryl Latham MD Unavailable Ashlee Doyle MD Primary Care Provider [phone] Jonh Junior MD Unavailable Encounters Date Type Department Care Team Description 01/11/2025 Telephone [facility] Cardiology [facility] [address]th [place] [address] [place] [address] Jonh Junior MD 11/20/2024 Results Follow-Up [facility] [address] [place] [address] India Contreras DO 11/15/2024 1:27 PM COMMUNITY DEVELOPMENT WORKER - 11/15/2024 11:59 PM COMMUNITY DEVELOPMENT WORKER Hospital Encounter [facility] [address] [place] [address] Vaginal irritation Discharge Disposition: Discharge to home or self care 11/15/2024 1:00 PM COMMUNITY DEVELOPMENT WORKER Office Visit [facility] [address] [place] [address] India Contreras DO Encounter for annual routine gynecological examination (Primary Dx); Vaginal irritation; Vaginal atrophy 10/30/2024 10:00 AM COMMUNITY DEVELOPMENT WORKER Office Visit [facility] Gastroenterology [facility] [address]th [place] [address] [place] [address] Dallas Weston MD Esophageal dysphagia (Primary Dx); Achalasia; Dyspepsia; Aimee infection, esophageal (HCC) from Last 3 Months Allergies Active Allergy Reactions Criticality Noted Date [...] 5 mg tabletIndication s:Coronary artery disease involving [place] coronary artery of [place] heart without angina pectoris Take 1 tablet [...] stable from prior notes from [facility] - Fundus exam and photos appear stable [...] should continue to monitor with her general assembler Assessment & Plan (04/01/2022 3:54 PM CDT): [...] (ERM) peel right eye (OD) 2007 at [facility]. Asked patient to bring notes or forward prior to next visit. Follows with Dr. Izaguirre at [facility]. Will have second opinion with [facility] next available per patient request. 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 Immunizations Immunization Administration Dates Next Due COVID-19 mRNA (Duplia) 0.3 m L (30 mcg) vaccine (12 [...] LIVE 03/29/2019, 9,09/19/2013,11/12 ZOSTER Recombinant 03/29/2019,09/21/2018, 018 Social History Tobacco Use Types Packs/Day Years [...] on file Legal Sex Female 2:10 AM COMMUNITY DEVELOPMENT WORKER Gender Identity Not on file Sexual Orientation Not on file Occupation Industry Job Start Date Job End Date retired Not on file Not on file Not on file Last Filed Vital Signs Vital Sign Reading Time Taken Comments Blood Pressure 120/60 11/15/2024 12:54 PM COMMUNITY DEVELOPMENT WORKER Pulse 72 10/30/2024 9:57 AM COMMUNITY DEVELOPMENT WORKER Temperature 36.2 C (97.1 F) 10/30/2024 9:57 AM COMMUNITY DEVELOPMENT WORKER Respiratory Rate 16 08/30/2024 10:38 AM COMMUNITY DEVELOPMENT WORKER Oxygen Saturation 97% 08/30/2024 10:38 AM COMMUNITY DEVELOPMENT WORKER Inhaled Oxygen Concentration - - Weight 54.9 kg (121 lb) 11/15/2024 12:54 PM COMMUNITY DEVELOPMENT WORKER Height 165.1 cm (5' 5 ) 11/15/2024 12:54 PM COMMUNITY DEVELOPMENT WORKER Body Mass Index 20.14 11/15/2024 12:54 PM COMMUNITY DEVELOPMENT WORKER Plan of Treatment Not on file Procedures Procedure Name Priority Date/Time Associated Diagnosis Comments VAGINITIS PANEL Routine 11/15/2024 3:37 PM COMMUNITY DEVELOPMENT WORKER Vaginal irritation from Last 3 Months Results * Vaginitis panel Vaginal (11/15/2024 3:37 PM COMMUNITY DEVELOPMENT WORKER) Aimee DNA probe Not Detected Not Detected Comment:Testing performed by : [facility], [address] [place] [address]., [id number] Gardnerella DNA probe Not Detected Not Detected BENJAMIN ELLINGTON Comment:Testing performed by : [facility], [address] [place] [address]., [id number] Trichomonas DNA probe Not Detected Not Detected BENJAMIN Comment: Interpretive Data Testing performed by [facility] via Affirm VPIII Microbial Identification Test, a [...] last revised on 2020. Testing performed by: [facility], [address] [place] [address]., [id number] Vaginal 11/15/2024 3:37 PM COMMUNITY DEVELOPMENT WORKER 11/16/2024 1:52 PM COMMUNITY DEVELOPMENT WORKER us India Contreras DO LAB MICROBIOLOGY - GENE RAL ORDERABLES Final Result Performing Organization Address City/State/ZIP Co al Phone Number BENJAMIN [phone] [facility] Department [place] [address] from Last 3 Months Insurance MEDICARE [facility] MEDICARE MEDICARE ANTH ACCESS CHOICE Member Subscriber Plan / Payer ( fective 2001-Present) Name:Agustina Arias Relation to Subscriber:Self Name:AGUSTINA ARIAS Payer ID:[id number] (NAIC) Group ID:[id number] Type:PCT International Address: [facility] [id number] [address] ACCESS MEDICARE [facility] FEDERAL Advance Directives For more information, please contact: [phone] * Full Code (Latest Code Status on [...] 11:35 PM 02/20/2021 8:13 PM Care Teams Windshield Technician Relationship Specialty Start Date End Date Ashlee Doyle MD [address] [place] [address] PCP - General Internal Medicine 09/05/23 Miscellaneous, Not In File 03/24/21 Sheryl Latham MD Medical Oncologist/Cdl Flatbed Truck Driver Medical Oncology 05/12/21 Jonh Junior MD [address] [place] [address] Referring Physician Cardiology 09/05/23
--- OUTSIDE RECORDS SUMMARY | 2025-01-15 13:15 | XMS_ITS | CONTINUITY OF CARE DOCUMENT ---
Author Name taylor vazquez Address Unknown Organization [facility] Address [address] [place] [address] [address] [place] [address] Phone [phone] Care Team Providers Care Art Framing Manager Name Role Phone Gilmar CRUZ, Juliana Unavailable Juliana Schafer MD Unavailable [phone] INSURANCE PROVIDERS Payer name Policy type / Coverage type Osseo red republican ID [facility] [id number] [place] MED[place] Medicare [id number]
--- OUTSIDE RECORDS SUMMARY | 2025-01-15 13:15 | XMS_ITS | Data Portability ---
Author Organization [place] [facility], Main Office Address [address] [place] [address] Care Team Providers Care Grant Coordinator Name Role Phone LD REYNOSO Primary Care Provider [phone] LD REYNOSO Referring Provider [phone] Assessment Encounter Date Assessment Date Assessment LastModified by Organization Details LastModified Time 02/07/2024 02/07/2024 The patient has severe primary to throw his left knee joint moderate to severe right knee joint under sterile conditions at her request I injected both knee joints in the office today with 4 cc of 0.5% bupivacaine and 20 mg of Kenalog. The patient tolerated the procedure well. I will see her back in 3 months if necessary for repeat cortisone injections. She voiced understanding and agrees with above plan she will call for any further problems difficulties or questions. Not available 02/07/2024 10:51:43 05/15/2024 05/15/2024 The patient has severe primary osteoarthritis left knee moderately severe right knee under sterile conditions at her request I injected both knee joints in the office today with 4 cc 0.5% Marcaine and 20 mg of Kenalog each. The patient tolerated procedures well. I will see her back as needed we can do this again in 3 months if necessary she voiced understanding agrees above plan she will call for any further problems difficulties or questions. Not available 05/15/2024 10:40:19 08/21/2024 08/21/2024 The patient has severe primary osteoarthritis left knee moderately severe on the right both knees bother her left worse than right. At her request under sterile conditions I injected both knee joints in the office today with 4 cc 0.5% bupivacaine and 20 mg of triamcinolone. The patient tolerated the procedures well. I will see her back as needed we can do this again in 3 months if necessary. We reviewed her x-rays in detail today from previous visit again she is not interested in total knee arthroplasty at 88 years of age with other medical problems it is probably best to get her by with conservative measures she voiced understanding and agreed with the above plan she will call for any further problems difficulties or questions. Not available 08/21/2024 10:53:09 11/20/2024 11/20/2024 The patient has severe primary osteoarthritis both knees as described. Under sterile conditions I injected both knee joints in the office today with 4 cc 0.5% bupivacaine and 20 mg of Kenalog each. The patient tolerated the procedures well. I will see her back again in 3 months if necessary she voiced understanding and agreed with the above plan she will call for any further problems difficulties or questions. Not available 11/20/2024 11:15:36 12/11/2024 12/11/2024 This note is dictated and transcribed by [employer]. Grounding Engineer variances may occur. Despite proofreading, typographical errors may occur. Occasional wrong-word or '[id number]' substitutions may have occurred due to the inherent limitations of voice recording. Read the chart carefully and recognize, using context, where substitutions have occurred. [email or web address] Not available 12/11/2024 12:47:10 Plan of Treatment Reminders Order Date Submit Date Provider Last Modified By Organization Details Last Modified Time Details Appointments Any 5 2024 09:45A M ELOISA Craig Not available Not available Not available Establish ed Patient 15 2024 10:45A Oanh Blair DPM Not available Not available Not available Lab None recorded. Referral None recorded. Procedures injection /aspirati on joint/bur sa (PROC) 2024 025 [email or web address] In-Office Order, Internal Use Only DO Not Attach Compendium DO Not Attach Compendium, Do Not Delete/merge, [id number] 11/20/2024 10:34:42 injection /aspirati on joint/bur sa (PROC) 2023 024 [email or web address] In-Office Order, Internal Use Only DO Not Attach Compendium DO Not Attach Compendium, Do Not Delete/merge, [id number] 08/21/2024 10:41:24 injection /aspirati on joint/bur sa (PROC) 2023 024 [email or web address] In-Office Order, Internal Use Only DO Not Attach Compendium DO Not Attach Compendium, Do Not Delete/merge, [id number] 05/15/2024 10:22:55 injection /aspirati on joint/bur sa (PROC) 2023 024 [email or web address] In-Office Order, Internal Use Only DO Not Attach Compendium DO Not Attach Compendium, Do Not Delete/merge, [id number] 02/07/2024 10:36:14 Surgeries None recorded. Imaging None recorded. Medication Orders bupivacai ne HCl 0.5 % (5 mg/mL) injection solution 2024 025 [email or web address] [facility] [id number], [address], 11/20/2024 11:16:59 Kenalog 10 mg/mL suspensio n for injection 2024 025 [email or web address] [facility] [id number], [address], 11/20/2024 11:16:59 bupivacai ne HCl 0.5 % (5 mg/mL) injection solution 2023 024 [email or web address] [facility] [id number], [address], 08/21/2024 11:04:45 triamcino lone acetonide 40 mg/mL suspensio n for injection 2023 024 [email or web address] [facility] [id number], [address], 08/21/2024 11:04:45 Kenalog 10 mg/mL suspensio n for injection 2023 024 [email or web address] [facility] [id number], [address], 08/21/2024 10:37:03 Marcaine (PF) 0.5 % (5 mg/mL) injection solution 2023 024 [email or web address] [facility] [id number], [address], 08/21/2024 10:37:25 bupivacai ne HCl 0.5 % (5 mg/mL) injection solution 2023 024 [email or web address] [facility] [id number], [address], 08/21/2024 10:36:18 Kenalog 10 mg/mL suspensio n for injection 2023 024 [email or web address] [facility] [id number], [address], 08/21/2024 10:37:03 Patient TargetsNo targets recorded. Patient InstructionsNo instructions recorded. Reason for Referral None Reported. Problems Name Problem SNOMED Code Status Onset Date Resolution Date Notes Provider Name and Address Organization Details Recorded Time Bilateral osteoarth ritis of knees 52904374472 9107 Active 2021 Not Available [facility] 3 20:02:36 Hammer toe 936427678 Active 2017 Not Available [facility] 3 20:02:36 Heartburn 38812338 Active 2017 Not Available [facility] 3 20:02:36 Foot callus 457673525 Active 2020 Not Available [facility] 3 20:02:36 Injury of great toenail 734845481 Active 2018 Not Available [facility] 3 20:02:36 Unable to cut own toenails 057918357 Active 2020 Not Available [facility] 3 20:02:36 Arthritis 6843727 Active 2017 Not Available [facility] 3 20:02:37 Migraine 40305738 Active 2017 Not Available [facility] 3 20:02:37 Porokerat osis 066419592 Active 2020 Not Available [facility] 3 20:02:37 Onychomyc osis of toenails 423887912 Completed 201712/24/2020 Not Available [facility] 3 20:02:37 Bunion 924822750 Active 2017 Not Available [facility] 3 20:02:37 Pain of right knee joint 90875401602 4100 Active 2021 Not Available [facility] 3 20:02:37 Pain of left knee joint 63078065980 4107 Active 2022 Not Available [facility] 3 20:02:37 Pain of bilateral knee joints 50060543400 4104 Active 2022 Not Available [facility] 3 20:02:37 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 3 10:30:33 Pain of left shoulder joint 54681266685 400907 Active 2022 Gena Esquivel null, [facility] 3 10:52:50 Tendiniti s of left rotator cuff 73898709046 638592 Active 2022 Hipolito Palm MD [address], [address], [place], [address] , [facility] 3 10:57:44 Pain in both feet 68544722045 738561 Active 2023 Nadeem Blair DPM [address], [address], [place], [address] , [facility] [employer] [facility] 4 09:12:06 Hammer toe 762598213 Active 2023 Nadeem Blair DPM [address], [address], [place], [address] , [facility] 4 19:15:41 Pain in toe 238921109 Active 2023 Nadeem Blair DPM [address], [address], [place], [address] , [facility] 4 19:16:13 Callosity on toe 105237478 Active 2024 Nadeem Blair DPM [address], [address], [place], [address] , [facility] 5 12:47:13 Notes:allergies, eye problem s, wears glasses, vision problems, ringing in ears Problem Notes None recorded. Procedures Surgical History Date Name Laterality Status Provider Name and Address Organization Details Recorded Time 5 Nail Debridement completed Nadeem Blair DPM [address], [address], [place], [address], [facility] 12/11/2024 12:47:06 5 Callus Debridement 2-4 completed Nadeem Blair DPM [address], [address], [place], [address], [facility] 12/11/2024 12:46:57 4 Nail Debridement completed Nadeem Blair DPM [address], [address], [place], [address], [facility] 01/17/2024 19:14:53 4 Callus Debridement 2-4 completed Nadeem Blair DPM [address], [address], [place], [address], [facility] 01/17/2024 19:14:40 4 Nail Debridement completed Nadeem Blair DPM [address], [address], [place], [address], [facility] 10/06/2023 12:01:21 4 Callus Debridement 2-4 completed Nadeem Blair DPM [address], [address], [place], [address], [facility] 10/06/2023 12:01:14 3 Ortho - Cortisone Injection completed Hipolito Palm MD [address], [address], [place], [address], [facility] 04/26/2023 10:49:51 3 Ortho - Cortisone Injection completed Hipolito Palm MD [address], [address], [place], [address], [facility] 01/18/2023 10:57:27 Imaging Results None recorded. Procedure Notes None recorded. Medical Equipment None Reported. Allergies Allergen ID Allergen Name Allergen Category Reaction Reaction Severity Criticality Documentation Date Start Date Code Code System Note Provider Name and Address Organization Details Recorded Time 50222 sulfur dioxide medicatio n facial swelling Not available Not available 11/17/2022 76761 79 RxNorm Not Available [facility] 3 20:04:47 Medications Name Sig Start Date Stop Date Status Note LastModified by Organization Details LastModified Time losartan 50 mg tablet TAKE 1 TABLET BY MOUTH EVERY DAY 08/02 completed Not Available Not Available Not Available latanoprost 0.005 % eye drops 10/06 completed Not Available Not Available Not Available fluconazole 100 mg tablet TAKE 1 TABLET BY MOUTH EVERY DAY active Not Available Not Available No t Available clotrimazol e 10 mg lindsey DISSOLVE 1 TABLET BY MOUTH 4 (FOUR) TIMES A DAY FOR 14 DAYS active Not Available Not Available No t Available nystatin 100,000 unit/mL oral suspension SHAKE LIQUID AND TAKE 5ML BY MOUTH 4 TIMES A DAY 08/21 completed Not Available Not Available Not Available doxycycline hyclate 100 mg capsule 10/06 completed Not Available Not Available Not Available ketoconazol e 2 % shampoo 08/21 completed Not Available Not Available Not Available clindamycin HCl 300 mg capsule TAKE 1 CAPSULE BY MOUTH THREE TIMES A DAY 10/06 completed Not Available Not Available Not Available ammonium lactate 12 % lotion Apply 2 applicati ons every day by topical route as needed. 10/06 completed Not Available Not Available Not Available loperamide 2 mg capsule 10/06 completed Not Available Not Available Not Available azithromyci n 250 mg tablet TAKE 2 TABLETS BY MOUTH TODAY, THEN TAKE 1 TABLET DAILY FOR 4 DAYS 08/02 completed Not Available Not Available Not Available cetirizine 5 mg tablet TAKE 1 TABLET BY MOUTH EVERYDAY AT BEDTIME 10/06 completed Not Available Not Available Not Available Lidocaine Viscous 2 % mucosal solution 10/06 completed Not Available Not Available Not Available amiodarone 200 mg tablet TAKE 1 TABLET BY MOUTH EVERY DAY 01/04 completed Not Available Not Available Not Available benzonatate 200 mg capsule 08/02 completed Not Available Not Available Not Available fluconazole 200 mg tablet TAKE TWO TABLETS (400MG) ON THE FIRST DAY, FOLLOWED BY 1 TABLET (200MG) DAILY FOR 21 DAYS. 08/21 completed Not Available Not Available Not Available sucralfate 1 gram tablet TAKE 1 TABLET BY MOUTH THREE TIMES DAILY 08/21 completed Not Available Not Available Not Available polysacchar michelle iron complex 150 mg iron capsule TAKE 1 CAPSULE BY MOUTH EVERY OTHER DAY active Not Available Not Available No t Available famotidine 40 mg tablet 10/06 completed Not Available Not Available Not Available bupivacaine HCl 0.5 % (5 mg/mL) injection solution Take 40 mg by injection route. 2024 active Not Available Not Available Not Avai lable cyanocobala min (vit B-12) 1,000 mcg tablet TAKE 1 TABLET BY MOUTH EVERY DAY 08/21 completed Not Available Not Available Not Available meclizine 12.5 mg tablet TAKE 1 TABLET 3 TIMES A DAY BY ORAL ROUTE NEEDED. active Not Available Not Available No t Available amlodipine 2.5 mg tablet TAKE 1 TABLET BY MOUTH EVERY DAY 10/06 completed Not Available Not Available Not Available metronidazo le 500 mg tablet TAKE 1 TABLET BY MOUTH TWICE A DAY FOR 7 DAYS 10/06 completed Not Available Not Available Not Available acyclovir 400 mg tablet TAKE 1 TABLET BY MOUTH TWICE A DAY 10/06 completed Not Available Not Available Not Available omeprazole 40 mg capsule,del ayed release TAKE 1 CAPSULE BY MOUTH EVERY DAY 30 MINUTES BEFORE BREAKFAST 08/02 completed Not Available Not Available Not Available aspirin 81 mg tablet,patricia yed release 01/04 completed Not Available Not Available Not Available tramadol 50 mg tablet 08/02 completed Not Available Not Available Not Available acetaminoph en 500 mg tablet TAKE 1 TABLET BY MOUTH EVERY 8 HOURS active Not Available Not Available No t Available triamcinolo ne acetonide 0.1 % topical cream APPLY TO AFFECTED AREA TWICE A DAY active Not Available Not Available No t Available spironolact one 25 mg tablet TAKE 1 TABLET BY MOUTH EVERY DAY IN THE MORNING active Not Available Not Available No t Available hydrocortis one 2.5 % topical cream with perineal applicator APPLY TO AFFECTED AREA 2-3 TIMES A DAY FOR 90 DAYS 08/02 completed Not Available Not Available Not Available amiodarone 400 mg tablet 08/02 completed Not Available Not Available Not Available Kenalog 10 mg/mL suspension for injection Take 40 mg by injection route. 2024 active [facility]: [phone] Not Available Not Available Not Available dexamethaso ne 1 mg tablet TAKE 1 TABLET BY MOUTH TO BE TAKEN AT 11PM AND TO DO BLOOD TEST THE NEXT DAY AT 8-9AM 08/02 completed Not Available Not Available Not Available Betimol 0.5 % eye drops 10/06 completed Not Available Not Available Not Available benzonatate 100 mg capsule TAKE 1 CAPSULE BY MOUTH THREE TIMES A DAY 08/21 completed Not Available Not Available Not Available simvastatin 5 mg tablet 10/06 completed Not Available Not Available Not Available timolol maleate 0.25 % eye drops 08/02 completed Not Available Not Available Not Available desloratadi ne 5 mg tablet 10/06 completed Not Available Not Available Not Available triamcinolo ne acetonide 40 mg/mL suspension for injection Take 40 mg by injection route. 2023 active Not Available Not Available Not Avai lable cephalexin 500 mg capsule TK ONE C PO TID 08/02 completed Not Available Not Available Not Available pantoprazol e 40 mg tablet,patricia yed release TAKE 1 TABLET BY MOUTH EVERY DAY IN THE MORNING active Not Available Not Available No t Available ranitidine 150 mg tablet 08/02 completed Not Available Not Available Not Available prednisone 50 mg tablet 08/02 completed Not Available Not Available Not Available losartan 25 mg tablet TAKE 0.5 TABLETS EVERY DAY BY MOUTH IN THE MORNING. active Not Available Not Available No t Available omeprazole 20 mg capsule,del ayed release TAKE 1 CAPSULE BY MOUTH EVERY DAY IN THE MORNING 01/04 completed Not Available Not Available Not Available irbesartan 75 mg tablet 10/06 completed Not Available Not Available Not Available mupirocin 2 % topical ointment APPLY A SMALL AMOUNT TO AFFECTED AREA 3 TIMES A DAY 10/06 completed Not Available Not Available Not Available telmisartan 20 mg tablet TAKE 1 TABLET BY MOUTH EVERY DAY 08/21 completed Not Available Not Available Not Available metoprolol succinate ER 25 mg tablet,exte nded release 24 hr TAKE 1 TABLET BY MOUTH EVERY DAY 10/06 completed Not Available Not Available Not Available cefuroxime axetil 500 mg tablet TAKE 1 TABLET BY MOUTH TWICE A DAY 08/21 completed Not Available Not Available Not Available estradiol 0.01% (0.1 mg/gram) vaginal cream INSERT 1 APPLICATO RFUL VAGINALLY TWICE A WEEK active Not Available Not Available No t Available levofloxaci n 750 mg tablet 08/02 completed Not Available Not Available Not Available methylpredn isolone 4 mg tablets in a dose pack TAKE 6 TABLETS ON DAY 1 DIRECTED ON PACKAGE AND DECREASE BY 1 TAB EACH DAY FOR A TOTAL OF 6 DAYS 08/02 completed Not Available Not Available Not Available albuterol sulfate HFA 90 mcg/actuati on aerosol inhaler INHALE 1 PUFF FOUR TIMES DAILY NEEDED FOR SHORTNESS OF BREATH OR WHEEZING 08/21 completed Not Available Not Available Not Available timolol maleate 0.5 % eye drops INSTILL 1 DROP INTO BOTH EYES TWICE DAILY active Not Available Not Available No t Available clobetasol 0.05 % scalp solution APPLY TO SCALP QD. 10/06 completed Not Available Not Available Not Available ondansetron 4 mg disintegrat ing tablet TAKE 1 TABLET BY MOUTH EVERY 8 HOURS NEEDED FOR NAUSEA AND VOMITING 08/02 completed Not Available Not Available Not Available fluticasone propionate 50 mcg/actuati on nasal spray,suspe nsion USE 1 SPRAY IN EACH NOSTRILDA LAUREEN active Not Available Not Available No t Available ipratropium bromide 21 mcg (0.03 %) nasal spray SPRAY 2 SPRAYS INTO EACH NOSTRIL TWICE A DAY active Not Available Not Available No t Available amoxicillin 875 mg-fercho perkins clavulanate 125 mg tablet TAKE 1 TABLET BY MOUTH EVERY 12 HOURS 08/02 completed Not Available Not Available Not Available tobramycin 0.3 %-dexametha sone 0.1 % eye drops,suspe nsion 08/02 completed Not Available Not Available Not Available magnesium 200 mg tablet TAKE 1 TABLET BY MOUTH EVERY DAY active Not Available Not Available No t Available moxifloxaci n 0.5 % eye drops 08/21 completed Not Available Not Available Not Available cholestyram ine (with sugar) 4 gram powder for susp in a packet MIX WITH LIQUID AND TAKE 1 PACKET BY MOUTH DAILY NEEDED 10/06 completed Not Available Not Available Not Available rosuvastati n 5 mg tablet TAKE 1 TABLET BY MOUTH EVERY OTHER DAY active Not Available Not Available No t Available Marcaine (PF) 0.5 % (5 mg/mL) injection solution Take 40 mg by injection route. 08/21 completed Not Available Not Available Not Available amiodarone 100 mg tablet TAKE 1 TABLET BY MOUTH EVERY DAY active Not Available Not Available No t Available nitrofurant oin monohydrate /macrocryst als 100 mg capsule TAKE 1 CAPSULE BY MOUTH TWICE A DAY WITH FOOD FOR 5 DAYS 10/06 completed Not Available Not Available Not Available solifenacin 5 mg tablet TAKE 1 TABLET BY MOUTH EVERY DAY 10/06 completed Not Available Not Available Not Available losartan 05/10 completed Not Available Not Available Not Available diclofenac 1 % topical gel APPLY 2 GRAMS TO THE AFFECTED AREA(S) BY TOPICAL ROUTE 4 TIMES PER DAY 01/04 completed Not Available Not Available Not Available Lumigan 0.01 % eye drops 10/06 completed Not Available Not Available Not Available ropivacaine (PF) 5 mg/mL (0.5 %) injection solution Take 40 mg by injection route. 08/02 completed [facility] [phone] Not Available Not Available Not Available Myrbetriq 25 mg tablet,exte nded release 10/06 completed Not Available Not Available Not Available Eliquis 2.5 mg tablet TAKE 1 TABLET BY MOUTH EVERY 12 HOURS active Not Available Not Available No t Available Entresto 24 mg-26 mg tablet TAKE 1 TABLET TWICE A DAY. DISCONTIN UE TELMISART AN active Not Available Not Available No t Available ferrous sulfate 220 mg (44 mg iron)/5 mL oral elixir TAKE 6.8 ML BY MOUTH THREE TIMES DAILY active Not Available Not Available No t Available Fluzone High-Dose (PF) 180 mcg/0.5 mL intramuscul ar syringe 08/02 completed Not Available Not Available Not Available Shingrix (PF) 50 mcg/0.5 mL intramuscul ar suspension, kit 08/02 completed Not Available Not Available Not Available Zenpep 25,000 unit-79,000 unit-105,00 0 unit capsule,del ayed release TAKE 1 CAPSULE BY MOUTH 3 TIMES A DAY BEFORE MEALS active Not Available Not Available No t Available Fluzone High-Dose (PF) 180 mcg/0.5 mL intramuscul ar syringe 08/02 completed Not Available Not Available Not Available estradiol 1.25 mg/1.25 gram (0.1 %) transdermal gel packet INSERT INTO VAGINA DAILY X 2 WEEKS THEN TWICE PER WEEK THEREAFTE R 08/21 completed Not Available Not Available Not Available Vitals Date Recorded Body height Body mass index (BMI) Body weight Provider Name and Address Organization Details Last Updated DateTime 02/07/2024 165.1 cm 20 kg/m2 48151.08 g Ynsect 02/07/2024 10:34:41 Date Recorded Body height Provider Name an d Address Organization Details Last Updated DateTime 05/15/2024 165.1 cm Gena Sierra [facility] 05/15/2024 10:21:11 Date Recorded Body height Body mass index (BMI) Body weight Provider Name and Address Organization Details Last Updated DateTime 08/21/2024 165.1 cm 19.5 kg/m2 25393.31 g Aurora Rucker [facility] 08/21/2024 10:35:03 Date Recorded Body height Body mass index (BMI) Body weight Provider Name and Address Organization Details Last Updated DateTime 11/20/2024 167.64 cm 19.4 kg/m2 91933.08 g Aurora Rucker [facility]NA [facility] 11/20/2024 10:32:52 Date Recorded Body height Body mass index (BMI) Body weight Heart rate Respiratory rate Oxygen saturation Oxygen saturation in Arterial blood by Pulse oximetry Systolic blood pressure Diastolic blood pressure Provider Name and Address Organization Details Last Updated DateTime 167.64 cm 19.4 kg/m2 00985.0 8 g 77 /min 14 /min 97 % 97 % 103 mm[Hg] 57 mm[Hg] Kristy Lin [facility] 11:43:01 Social History Question Answer Notes LastModified by Organizat ion Details LastModified Time Tobacco Smoking Status Never Smoker Not Available [facility] 11/17/2022 20:01:47 What Is Your Level Of Alcohol Consumption? None [id number] Information not available 11/17/2022 Sex: Unknown Functional Status None recorded. Mental Status None recorded. Family History Relationship Description Onset Age of this Age Resolved Age Notes LastModified by Organization Details LastModified Time Mother Heart disease [id number] Not available 11/17/2022 20:01:48 Daughter Diabetes mellitus [email or web address] Not available 2022 10:37:56 Medical History Condition Response CANCER: SPECIFY Y ARTHRITIS Y USE OF BLOOD THINNERS Y OSTEOPOROSIS Y URINARY/BLADDER/KIDNEY PROBLEMS Y HEART ARRHYTHMIA Y Gynecological HistoryNo gynecological history recorded. Obstetrics History GPAL:G 0 P 0 0 0 0 Past Encounters Encounter ID Performer Location Encounter Start Date Encounter Closed Date Diagnosis/Indication Diagnosis SNOMED-CT Code Diagnosis ICD10 Code Diagnosis Note [id number] [facility] [place] [address] [facility], [address] [address] 12/24/2020 00:00:00 12/24/2020 12:30:59 [id number] [facility] [place] [address] [place] [address], [address] [address] 01/22/2021 00:00:00 01/22/2021 14:39:24 [id number] [facility] [place] [address] [place] [address], [address] [address] 06/09/2021 00:00:00 06/09/2021 15:44:55 [id number] [facility] [place] [address] [facility], [facility] [address] [place] [address] 09/08/2021 00:00:00 09/09/2021 14:14:15 [id number] [facility] [place] [address] [facility], [facility] [address] [place] [address] 12/01/2021 00:00:00 12/07/2021 09:22:09 [id number] [facility] [place] [address] [facility], [facility] [address] [place] [address] 03/11/2022 00:00:00 03/11/2022 15:00:59 [id number] [facility] [place] [address] [place] [address] 06/15/2022 00:00:00 06/15/2022 10:48:18 [id number] [facility] [place] [address] [facility], [facility] [address] [place] [address] 06/21/2022 00:00:00 06/21/2022 11:25:00 [id number] [facility] [facility] [address] [place] [address] 07/27/2022 00:00:00 07/27/2022 10:58:30 [id number] [facility] [address] [place] [address] 10/19/2022 00:00:00 10/19/2022 11:23:43 [id number] [facility] [address] [facility], [facility] [address] [place] [address] 11/04/2022 00:00:00 11/04/2022 13:12:01 [id number] Hipolito Palm MD [facility] [address] [place] [address] 01/18/2023 10:25:40 01/18/2023 11:47:03 Osteoarthritis 041430150 M17.0 Pain of le ft shoulder joint 4870316131 3773705 M25.512 Bilateral osteoarthritis of knees 3723372344 00468 M17.0 Tendinitis of left rotator cuff 1174573482 5770564 M67.814 [id number] Hipolito Palm MD [address] [address] 04/26/2023 10:29:26 04/26/2023 10:54:17 Osteoarthritis 501386720 M17.0 Pain of le ft shoulder joint 0348618744 2121125 M25.512 Bilateral osteoarthritis of knees 4697189833 21065 M17.0 Tendinitis of left rotator cuff 7963506656 3174751 M67.453 [id number] ELOISA Craig [address] [address] 08/02/2023 10:16:49 08/02/2023 11:03:26 Bilateral osteoarthritis of knees 0434996863 31897 M17.0 Pain of bi lateral knee joints 0825507098 61038 M25.561 M25.246 [id number] Nadeem Blair DPM [facility] [address] [facility], [place] [address] [place] [address] 10/06/2023 11:40:05 10/17/2023 09:32:53 Dystrophia unguium 76632883 L60.3 Nails debrided without incidentFo llow-up 3 months as needed Foot callus 019978578 L8 4 Debrided without incidentRe commend use of pumice stoneOfflo ading with supportive shoe gear to prevent wounds infectionF ollow-up in 3 months as needed Pain in both feet 492229 0624 3550036 M79.671 M79.672 Secondary to above [id number] ELOISA Craig [address] [address] 11/08/2023 10:33:08 11/08/2023 11:16:24 Bilateral osteoarthritis of knees 6482672496 17751 M17.0 Pain of bi lateral knee joints 7650935195 89976 M25.561 M25.961 [id number] Nadeem Blair DPM [facility] [address] [facility], [place] [address] [place] [address] 01/05/2024 11:30:28 01/18/2024 13:00:27 Hammer toe 639051048 M20.40 continue conservati ve offloading recommend silicone offloading sleeves and wide soft toe box shoe gear Foot callus 827885416 L8 4 Debrided without incidentRe commend use of pumice stoneOfflo ading with supportive shoe gear to prevent wounds infectionF ollow-up in 3 months as needed Dystrophia unguium 77870 009 L60.3 Nails debrided without incidentFo llow-up 3 months as needed Pain in toe 475166828 M7 9.676 secondary to above [id number] ELOISA CraigS[facility] [address] [address] 02/07/2024 10:32:03 02/07/2024 10:48:39 Bilateral osteoarthritis of knees 9132355624 95510 M17.0 Pain of bi lateral knee joints 9962181663 25312 M25.561 M25.214 [id number] ELOISA Craig [facility] [address] [address] 05/15/2024 10:17:20 05/15/2024 10:45:39 Bilateral osteoarthritis of knees 6528179174 41807 M17.0 Pain of bi lateral knee joints 3062074530 93353 M25.561 M25.010 [id number] ELOISA Craig [facility] [address] [address] 08/21/2024 10:09:13 08/21/2024 10:50:56 Bilateral osteoarthritis of knees 6493850180 66072 M17.0 Pain of bi lateral knee joints 8774379239 49872 M25.561 M25.738 [id number] ELOISA Craig [facility] [address] [address] 11/20/2024 10:24:01 11/20/2024 10:47:35 Bilateral osteoarthritis of knees 7697940455 43282 M17.0 Pain of bi lateral knee joints 9575024788 65059 M25.561 M25.060 [id number] Nadeem Blair DPM [facility] [address] [place] [address] 12/11/2024 11:35:22 12/11/2024 12:53:03 Dystrophia unguium 76853927 L60.3 Nails debrided without incidentFo llow-up 3 months as needed Pain in toe 194629290 M7 9.676 secondary to above Unable to cut own toenails 707396061 Z74.1 Callosity on toe 7615911 01 L84 debrided bilateral great toes- calluses without incidentco ntinue use of pumice stonewide shoe gear recommende d Health Concerns Section Related Observation LastModified by Organization Detai ls LastModified Time None Recorded Concern Status LastModified by Organization Details LastModified Time None Recorded Advance Directives Directive None Recorded Payers Encounter Date Sequence Insurance Name Policy Number Policy Tai Covered Member ID Tai Member ID Guarantor Name 02/07/2024 1 [place] Agustina Cordova [id number] Agustina Cordova 02/07/2024 2 [place] 104 Agustina Cordova [id number] Agustina Cordova 05/15/2024 1 [place] Agustina Cordova [id number] Agustina Cordova 05/15/2024 2 [place] 104 Agustina Cordova [id number] Agustina Cordova 08/21/2024 1 [place] Agustina Cordova [id number] Agustina Cordova 08/21/2024 2 [place] 104 Agustina Cordova [id number] Agustina Cordova 11/20/2024 1 [place] Agustina Cordova [id number] 1 [id number] Agustina Cordova 11/20/2024 2 [place] 104 Agustina Cordova [id number] Augstina Cordova 12/11/2024 [facility] Cordova [id number] 1 [id number] Agustina Cordova 12/11/2024 2 [place] 104 Agustina Cordova [id number] Agustina Cordova Notes Date Note Type Note Provider Name and Address Organization Details Recorded Time 02/07/2024 text/html Patient returns she is complaining of pain in both knees she has severe primary arthritis in the left knee moderately severe in the right. She has fyxd-et-wgbk changes in the medial compartment of the left knee nearly zzjv-jw-xsiv in the lateral compartment of the right knee. Also has significant narrowing in the patellofemoral articulations. Denies any new trauma or injury no new symptoms or complaints today her pain is about an 8 on a scale 1-10. The last cortisone injections 3 months ago gave her good relief. She has decided that at 88 years of age is with other medical issues she is not interested in total knee arthroplasty. She is really not a good candidate she gets by with conservative measures. ELOISA Craig [address] [employer], [address], [place], [address], [employer] 02/07/2024 10:51:58 05/15/2024 text/html Patient returns with bilateral knee pain. She has severe primary osteoarthritis left knee moderately severe in the right knee. She has atai-du-rotp changes in medial compartment left knee in nearly there in the lateral compartment of the right knee with significant marginal osteophyte off the lateral tibial plateau of the right knee. She states the shots of cortisone to work well for her for almost 3 months than they wear off pretty quickly. Denies any new problems with either knee no effusion or swelling no erythema heat or other signs of infection the pain is about a 6 on a scale 1-10 both knees she is not interested in total knee arthroplasty due to her age, she is not a great candidate for total knee arthroplasty. ELOISA Craig [address] [employer], [address], [place], [address], [employer] 05/15/2024 10:40:38 08/21/2024 text/html Patient returns she is complaining of bilateral knee pain left slightly worse than right the left knee is nsxd-ch-gmow in the medial compartment right knee not quite yet there but certainly both compartments in the right knee tibial femoral articulation are very narrowed near ksiz-kw-bhfx. She also has significant patellofemoral changes. She has severe primary osteoarthritis left knee moderately severe in the right knee. Most of the pain is localized to the medial compartment of the left knee denies any new trauma or injury no effusion or swelling no erythema heat or other signs of infection. She states the pain is about a 6 on a scale of 1-10 left a little better on the right but both are bothering her. It has been a little over 3 months since her last injection she would like both knees injected again today. She has trouble particularly in the evenings after a long day. She does do exercises to help with her stiffness and trying to keep the knees in good shape. At 88 years of age she is not interested in total knee arthroplasty she would like to continue with conservative measures. She takes Tylenol Arthritis, unfortunately she is on blood thinners so we can not give her any oral anti-inflammatory medication. We talked about using ice she does occasionally. She comes in today requesting bilateral knee injections. New past medical history sheet was reviewed and signed on the intake sheet of today's date drug allergies current medications family social history previous surgical history 10 point review of systems was reviewed and discussed in detail today with the patient. She denies any significant changes in her past medical history recently. ELOISA Craig [address] [facility], [facility] [address], [place], [address], [facility] [employer] 08/21/2024 10:53:29 11/20/2024 text/html The patient retu rns complaining of bilateral knee pain. Previous x-rays show severe primary osteoarthritis of the left knee moderately severe in the right knee. Left knee is swrv-mb-ymgw in the medial compartment right knee has a sliver of joint space remaining she also has significant patellofemoral articular osteoarthritis. She denies any effusion or swelling no new trauma or injury she comes in every 3 months for cortisone injections she would like to repeat those today they do help for about 2-1/2 months at a time. At 88 years of age she is not interested in total knee arthroplasty. ELOISA Craig [address] [employer], [address], [place], [address], [employer] 11/20/2024 11:16:25 12/11/2024 text/html . Patient is a 8-year-old female who returns for routine foot care secondary to elongated toenails she is unable to cut them states when they are long they are painful she states she has pain to the toes with shoe gear she denies any other complaints. Nadeem Blair DPM [address], [facility] [address], [place], [address], [place] 12/11/2024 12:47:49 OBGyn Episode No OBEpisode recorded.
--- OUTSIDE RECORDS SUMMARY | 2025-01-15 13:15 | XMS_ITS | Patient Health Record ---
Author Organization [facility] Address [address] [place] [address] Care Team Providers Care Mold Shifter Name Role Phone Rafael Barrios Primary Care Provider Reason For Referral No Information Plan Of Treatment No Information
--- OUTSIDE RECORDS SUMMARY | 2025-01-15 13:15 | XMS_ITS ---
Author Organization [facility] Address [address] [place] [address] Care Team Providers Care Phototypesetter Operator Name Role Phone Miscellaneous, Not In File Unavailable Unava ilable Sheryl Latham MD Unavailable Ashlee Doyle MD Primary Care Provider [phone] Jonh Junior MD Unavailable Active Problems Problem Noted Date Diagnosed Date [...] stable from prior notes from [facility] - Fundus exam and photos appear stable [...] should continue to monitor with her general lot attendant Assessment & Plan (04/01/2022 3:54 PM CDT): [...] (ERM) peel right eye (OD) 2007 at [facility]. Asked patient to bring notes or forward prior to next visit. Follows with Dr. Izaguirre at [facility]. Will have second opinion with [facility] next available per patient request. 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 Past Treatment and Therapy Plans Oncology Chemotherapy Treatment Plan Name Start Date Discontinue Date Treatment Medications Discontinue Reason Plan Provider Cycles R-CHOP: RiTUXimab / Cyclophosphamide / DOXOrubicin (ADRIAMYCIN) / VinCRIStine / PredniSONE 21 Day Cycles - DLBCL 1 11/23/2021 cycloPHOSphamide (CYTOXAN) IVPB (vial 20 mg/mL) (J9075)cycloPHOSp hamide IVPB in 250 mL (vial 200 mg/mL)(J9073)DOXO rubicin (ADRIAMYCIN) 2 mg/mLriTUXimab-pv vr (RUXIENCE) IVPB in 500 mLvinCRIStine (ONCOVIN) IVPB in 50 mL Therapy Complete Sheryl Salas MD 4 of 4 cycles completed Lifetime Dose Tracking * Chemical Lifetime Dose Automatic Entry Manual Entr y doxorubicin 167.822 mg/m2 (287.8 mg) 167.822 mg/m2 (287.8 mg) 0 mg/m2 (0 mg) Fluoro Time 1 minutes 1 minutes 0 minutes cyclophosphamide 568.182 mg/m2 (1,000 mg) 568.182 mg/m2 (1,000 mg) 0 mg/m2 (0 mg) doxorubicin isotoxic equivalent (Please manually verify calculation) 167.822 mg/m2 (287.8 mg) 167.822 mg/m2 (287.8 mg) 0 mg/m2 (0 mg) Air kerma at the reference point (Ka,r) 10.6 mGy 10.6 mGy 0 mGy DLP 2,795 mGycm 2,795 mGycm 0 mGycm
--- OUTSIDE RECORDS SUMMARY | 2025-01-15 13:16 | XMS_ITS | Clinical Summary ---
Author Organization [facility] Address [address] [facility] [place] [address] Care Team Providers Care Tree Feller Name Role Phone Olivia Foss MD Primary Care Provider Unavailable Source Comments [facility],non-owned Affiliates and Associated Physician Practices is amultiple site organization consisting of ambulatory clinics and hospital sitesin [place], [place], [place] and [place]. This disclosure is being madepursuant to the Care Everywhere program and may not contain all information available regarding this patient. 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 Gender Identity Not on file Sexual Orientation Not on file Last Filed Vital Signs Vital Sign Reading Time Taken Comments Blood Pressure 128/80 01/02/2016 1:57 PM CDT Pulse - - Temperature - - Respiratory Rate - - Oxygen Saturation - - Inhaled Oxygen Concentration - - Weight 68.9 kg (152 lb) 01/02/2016 1:57 PM CDT Height 165.1 cm (5' 5 ) 01/02/2016 1:57 PM CDT Body Mass Index 25.29 01/02/2016 1:57 PM CDT Plan of Treatment Health Maintenance Due Date Last Done Comments BONE DENSITY TESTING 1935 MEDICARE AWV 12 MONTHS 1935 DTAP/TDAP/TD VACCINES (1 - Tdap) 1956 PNEUMOCOCCAL VACCINE 50+ (1 of 1 - PCV) 12/29/1987 ZOSTER VACCINE (1 of 2) 12/29/1987 Respiratory Syncytial Virus (RSV) Vaccine Pt: or over 60 yrs (1 - 1-dose 75+ series) 2012 COVID-19 VACCINE (2023- season) 2024 DEPRESSION SCREENING 09/19/2024 INFLUENZA VACCINE (Season Ended) 2025 06/29/2019, 05/20/2018, 06/03/2017, Additional history exists HEPATITIS B VACCINE Aged Out No longe r eligible based on patient's age to complete this topic HIB VACCINE Aged Out No longer eligi ble based on patient's age to complete this topic HPV VACCINE Aged Out No longer eligi ble based on patient's age to complete this topic MENINGOCOCCAL (Group B) VACCINE SHARED DECISION-MAKING Aged Out No longer eligible based on patient's age to complete this topic MENINGOCOCCAL GROUPS A/C/Y/W VACCINE Aged Out No longer eligible based on patient's age to complete this topic Insurance MEDICARE [facility] Member Subscriber Plan / Payer (Ef fective 2001-Present) Name:Chiquis Cordova Relation to Subscriber:Self Name:CHIQUIS CORDOVA Payer ID:[id number] (NAIC) Group ID:[id number] Type:PPO Address: [address] [place] [id number] Care Teams Tree Feller Relationship Specialty Start Date End Date Olivia Foss MD PCP - General 02/05/19
--- OUTSIDE RECORDS SUMMARY | 2025-01-15 13:16 | XMS_ITS | Data Portability ---
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 Studies ordered as below. Discussed plan with patient/caregi sharon, who expressed understanding. Follow up as noted below. Not available 01/06/2024 12:37:07 03/06/2024 03/06/2024 Patient presented for follow up. Studies ordered as below. Discussed plan with patient/caregi sharon, who expressed understanding. Follow up as noted below. Not available 03/06/2024 15:15:57 04/18/2024 04/18/2024 Patient presented for follow up. Studies ordered as below. Discussed plan with patient/caregi sharon, who expressed understanding. Follow up as noted below. Patient presented to office today for a follow up visit for a previous hospital visit that occurred on Patient presented to hospital for: Patient s condition is improved since discharge; patient denies any new problems since discharge. Medications were reviewed and any necessary updates and renewals were made. Discussed potential side effects of medications. Patient is compliant with medications. Counseling was done on care goals and ways to prevent future hospitalizatio ns. Emphasized preventive health measures and educated patient to help reduce health risks and promote healthy living. Scheduled follow-up appointment for to review health status and care plan and instructed patient whom to contact in case of emergency. Further treatment per orders below. mshenouda Not available 04/18/2024 12:19:01 10/08/2024 10/08/2024 Patient presented for follow up. Studies ordered as below. Discussed plan with patient/caregi sharon, who expressed understanding. Follow up as noted below. Not available 10/08/2024 11:35:10 Plan of Treatment Reminders Order Date Submit Date Provider Last Modified By Organization Details Last Modified Time Details Appointments None recorded. Lab vitamin B12 + folate, serum or blood 2024 025 [facility], [address] [place], [address], 14:39:51 magnesium, QN, serum or plasma [address] [facility], [address] [place], [address], 5 15:32:57 CMP, serum or plasma 2024 025 [facility], [address] [place], [address], 5 14:39:51 CBC w/ auto diff 2024 025 [facility], [address] [place], [address], 5 20:59:59 hemoglobin A1c, QN, blood 2024 025 [facility], [address] [place], [address], 5 20:59:59 lipid panel w/ direct LDL, serum 2024 025 [facility], [address] [place], [address], 5 14:39:51 TSH, serum or plasma [address] Out[facility] Lab, [address] [place], [address], 5 15:32:57 pro BNP (pro B-type natriureti c peptide), serum or plasma 2024 025 [facility], [address] [place], [address], 5 20:59:59 iron panel, serum or plasma 2024 025 [facility], [address] [place], [address], 5 20:59:59 CMP, serum or plasma 2023 024 [facility], [address] [place], [address], 4 04:09:57 magnesium, QN, serum or plasma 2023 024 [facility], [address] [place], [address], 4 04:09:57 CBC w/ auto diff - 8 weeks from 04/17/242023 024 [facility], [address] [place], [address], 4 14:00:39 iron panel, serum or plasma - 8 weeks from 04/17/242023 024 [facility], [address] [place], [address], 4 04:05:03 lipid panel w/ direct LDL, serum 2023 024 [facility], [address] [place], [address], 4 18:10:08 hepatic function panel, serum 2023 024 [facility], [address] [place], [address], 4 18:10:08 iron panel, serum or plasma 2023 024 [facility], [address] [place], [address], 4 18:10:08 CBC w/ auto diff 2023 024 [facility], [address] [place], [address], 4 18:10:08 Referral otolaryngo logist referral 2023 024 [email or web address] Bola Vega MD, [address] [place] [address], [address], 4 16:02:00 Procedures None recorded. Surgeries None recorded. Imaging CT, chest + abdomen + pelvis, w/o contrast 2024 025 [facility] [address] [place], [address], 5 16:36:21 XR, chest, 2 view 2024 025 [facility] [address] [place], [address], 5 16:48:57 XR, chest, 2 view - 6 weeks from 04/07/242023 024 [facility] [address] [place], [address], 4 13:44:01 Medication Orders Creon 24,000-76, 000-120,00 0 unit capsule,de layed release 2024 025 [facility] [address] [facility] [address] [place], [address], 5 13:12:54 Eliquis 2.5 mg tablet 2024 025 [facility] [address], [address], 5 12:13:09 triamcinol one acetonide 0.1 % topical cream 2023 024 [facility] [address], [address], 4 12:41:20 Eliquis 2.5 mg tablet 2023 024 eladia LIZARRAGA [address], [address], 4 12:41:17 fluconazol e 100 mg tablet 2023 024 [facility] [address], [address], 4 18:22:20 ferrous sulfate 300 mg (60 mg iron)/5 mL oral liquid 2023 024 [facility] [address], [address], 4 18:22:14 benzonatat e 100 mg capsule 2023 024 [facility] [address], [address], 4 20:03:27 meclizine 12.5 mg tablet 2023 025 [facility] [address], [address], 5 12:03:37 Patient TargetsNo targets recorded. Patient Instructions Encounter Date Encounter Id Patient Instructions Last Modified By Organization Details Last Modified Time 01/06/2024 [id number] age-related macular degeneration: care instructions mshenouda Not available 01/06/2024 13:47:38 03/06/2024 [id number] mammogram: about this test mshenouda Not available 03/06/2024 15:56:05 cough: care instructions mshenouda Not available 03/06/2024 15:56:05 benign paroxysma l positional vertigo (bppv): care instructions mshenouda Not available 03/06/2024 15:56:04 high cholesterol : care instructions mshenouda Not available 03/06/2024 15:56:05 anemia: care instructions mshenouda Not available 03/06/2024 15:56:05 carotid stenosis : care instructions mshenouda Not available 03/06/2024 15:56:05 04/18/2024 [id number] pneumonia: care instructions mshenouda Not available 04/18/2024 12:31:54 vaginal yeast infection: care instructions mshenouda Not available 04/18/2024 12:31:54 iron deficiency anemia: care instructions mshenouda Not available 04/18/2024 12:31:54 heart failure: care instructions mshenouda Not available 04/18/2024 12:31:54 learning about heart failure mshenouda Not available 04/18/2024 12:31:54 06/18/2024 [id number] learning about swallowing problems mshenouda Not available 06/18/2024 12:41:18 mammogram: about this test mshenouda Not available 06/18/2024 12:41:18 heart failure: care instructions mshenouda Not available 06/18/2024 12:41:18 learning about heart failure mshenouda Not available 06/18/2024 12:41:18 10/08/2024 [id number] mammogram: about this test mshenouda Not available 10/08/2024 12:13:06 high cholesterol : care instructions mshenouda Not available 10/08/2024 12:13:06 carotid stenosis : care instructions mshenouda Not available 10/08/2024 12:13:05 iron deficiency anemia: care instructions mshenouda Not available 10/08/2024 12:13:06 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 [facility] [address] [place], [address], 01/11/2024 12:52:09 04/03/20 24 04/02/2024 XR, chest , 2 view No observ ation record ed. [address], [address], 04/18/2024 12:11:50 04/05/20 24 04/05/2024 XR, chest , 2 view No observ ation record ed. [address] [address], [place], [address], 04/18/2024 12:11:49 05/16/20 24 05/16/2024 XR, chest , 2 view No observ ation record ed. [facility] [address] [place], [address], 06/18/2024 12:28:47 10/23/19 25 10/23/2024 XR, chest , 2 view No observ ation record ed. [facility] [address] [place], [address], 10/24/2024 16:52:49 10/23/19 25 10/23/2024 CT, chest + abdom en + pelvi s, w/o contr ast No observ ation record ed. [address] [place], [address], 10/24/2024 18:57:22 11/27/19 25 11/26/2024 US, liver No observ ation record ed. [facility] [address] [place], [address], 11/28/2024 13:45:59 Result Notes None recorded. Problems Name Problem SNOMED Code Status Onset Date Resolution Date Notes Provider Name and Address Organization Details Recorded Time Congestiv e heart failure 44042442 Active 2023 Ashlee Doyle MD [address], [place], [address] , [facility] 4 12:20:10 Iron deficienc y anemia 70975345 Active 2023 Ashlee Doyle MD [address], [place], [address] , [facility] 4 12:22:31 Left bundle branch block 49516736 Active 2023 Ashlee Doyle MD [address], [place], [address] , [facility] 4 12:26:56 Stasis dermatiti s 95000147 Active 2023 Ashlee Doyle MD [address], [place], [address] , [facility] 4 12:34:37 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 2023 Ashlee Doyle MD [address], [place], [address] , [facility] 4 17:34:02 CT of abdomen abnormal 58312056628 375684 Active 2024 Ashlee Doyle MD [address], [place], [address] , [facility] 5 20:40:35 Prediabet es 738983987 Active 2024 Dxed by A1c 6.2% on 10/23/24 Ashlee Doyle MD [address], [place], [address] , [facility] 5 21:01:29 Benign hypertens ion 11933065 Active 2016 Not Available [facility] 3 14:49:31 Hyperlipi demia 93817230 Active 2016 Not Available [facility] 3 14:49:31 Hemorrhoi ds 68452346 Active 2016 Not Available [facility] 3 14:49:31 Left bundle branch block 40045657 Active 2016 sees cardiolog y once a year Not Available [facility] 3 14:49:31 Osteopeni a 669360864 Active 2016 Not Available [facility] 3 14:49:31 Osteoarth ritis 281030446 Active 2016 Not Available [facility] 3 14:49:31 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 Not Available [facility] 3 14:49:31 Transient cerebral ischemia 372101402 Active 2016 Not Available [facility] 3 14:49:31 Allergic rhinitis 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 13209716 Active 2016 Not Available [facility] 3 14:49:31 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 681002542 Active 2016 Not Available [facility] 3 14:49:31 Carotid artery stenosis 76802833 Active 2016 Not Available [facility] 3 14:49:31 Focal onset epileptic seizure 49822143 Active 2017 Not Available [facility] 3 14:49:31 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 509557880 Active 2017 Not Available [facility] 3 14:49:31 History of Malignant melanoma 376811850 Active 2018 Not Available [facility] 3 14:49:31 Gastroeso phageal reflux disease without esophagit is 222147019 Active 2018 Not Available [facility] 3 14:49:31 Ophthalmi c migraine 83985848 Active 2018 on ophth note 07/24/19 Not Available [facility] 3 14:49:31 Open-angl e glaucoma of left eye 826386088 Active 2018 on ophth note 07/24/19 Not Available [facility] 3 14:49:31 Idiopathi c periphera l neuropath y 04785839 Active 2019 Not Available [facility] 3 14:49:31 Family history of diabetes mellitus 532112661 Active 2019 Not Available [facility] 3 14:49:31 Neoplasm of supraclav icular region 297137285 Active 2020 Not Available [facility] 3 14:49:31 Hyponatre kasandra 17202610 Active 2020 Not Available [facility] 3 14:49:31 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, face AND/OR neck 47718410 Active 2020 Not Available [facility] 3 14:49:31 Coronary arteriosc lerosis 59625408 Active 2020 non occlusive per cardiolog y note 06/11/21 Not Available [facility] 3 14:49:31 Paroxysma l atrial fibrillat ion 105668421 Active 2020 Not Available [facility] 3 14:49:31 Diffuse high grade B-cell lymphoma 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 Active 2020 Not Available [facility] 3 14:49:31 Macrocyto sis 062200306 Active 2020 Not Available [facility] 3 14:49:31 History of SARS-CoV- 2 53290436452 3195027 Active 2021 Not Available [facility] 3 14:49:31 Long-term drug therapy Active 2021 Not Available [facility] 3 14:49:31 Increased frequency of urination 076500402 Active 2021 Not Available [facility] 3 14:49:31 Vitamin B deficienc y 64480103 Active 2022 Not Available [facility] 3 14:49:31 Mixed urinary incontine nce 788209499 Active 2022 Not Available [facility] 3 14:49:31 Hypomagne semia 576249367 Active 2022 Not Available [facility] 3 14:49:31 Mixed hyperlipi demia 126880996 Active 2022 Not Available [facility] 3 14:49:31 Insomnia 209436000 Active 2022 Not Available [facility] 3 14:49:31 Periphera l vascular disease 350221018 Active 2022 Ashlee Doyle MD [address], [place], [address] , [facility] 3 11:47:35 Anemia 230133540 Active 2023 Ashlee Doyle MD [address], [place], [address] , [facility] 4 22:05:29 Body mass index less than 20 651781423 Active 2023 Ashlee Doyle MD [address], [place], [address] , [facility] 4 11:56:56 Dysphagia 12942551 Active 2023 Ashlee Doyle MD [address], [place], [address] , [facility] 4 14:14:25 Mild memory disturban ce 946684167 Active 2023 Ashlee Doyle MD [address], [place], [address] , [facility] 4 13:46:21 Problem Notes None recorded. Procedures Surgical History Date Name Laterality Status Provider Name and Address Organization Details Recorded Time Partial Hysterectomy completed Ashlee Doyle MD [address], [place], [address], [facility] 05/10/2017 15:03:45 Imaging Results Imaging Date Name Status LastModified by Organiz ation Details LastModified Time 12/30/2023 MAMMO, screening, digital, bilateral completed [facility] [address] [place], [address], 01/11/2024 12:52:09 04/02/2024 XR, chest, 2 view completed [address] [place] [address], [address], 04/18/2024 12:11:50 04/05/2024 XR, chest, 2 view completed [address], [address], 04/18/2024 12:11:49 05/16/2024 XR, chest, 2 view completed [facility] [address] [place], [address], 06/18/2024 12:28:47 10/23/2024 XR, chest, 2 view completed [facility] [address] [place], [address], 10/24/2024 16:52:49 10/23/2024 CT, chest + abdomen + pelvis, w/o contrast completed [address] [place], [address], 10/24/2024 18:57:22 11/26/2024 US, liver completed [facility] [address] [place], [address], 11/28/2024 13:45:59 Procedure Notes None recorded. Medical Equipment None Reported. Allergies Allergen ID Allergen Name Allergen Category Reaction Reaction Severity Criticality Documentation Date Start Date Code Code System Note Provider Name and Address Organization Details Recorded Time 71987 solifenac in medicatio n dry mouth Not available Not available 10/12/2022 48886 7 RxNorm Not Available Not Available Not Available 07442 sulfur dioxide medicatio n facial swelling Not available Not available 01/11/2025 98991 79 RxNorm Not Available Not Available Not Available 5996 Substance with sulfonami de structure and antibacte rial mechanism of action (substanc e) medicatio n other Not available Not available 05/10/2017 27700 8003 SNOMED swell ing Not Available Not Available Not Available Medications Name Sig Start Date Stop Date Status Note LastModified by Organization Details LastModified Time antacid/dip hen/lido 111 mouthwas SWISH AND SWALLOW 10 ML BY MOUTH EVERY 4 HOURS NEEDED FOR THROAT SORENESS 01/28 completed Not Available Not Available Not Available Prescriptio n - Change 10/03 completed Not Available Not Available Not Available losartan 50 mg tablet TAKE 1 TABLET BY MOUTH EVERY DAY active Not Available Not Available No t Available amoxicillin 500 mg capsule 05/10 completed Not Available Not Available Not Available latanoprost 0.005 % eye drops 03/05 completed Not Available Not Available Not Available fluconazole 100 mg tablet TAKE 1 TABLET BY MOUTH EVERY DAY 06/14 completed Not Available Not Available Not Available clotrimazol e 10 mg lindsey TAKE 1 TABLET BY MOUTH 4 TIMES A DAY FOR 14 DAYS active Not Available Not Available No t Available nystatin 100,000 unit/mL oral suspension Take 5 mL 4 times a day by oral route. 10/08 completed Not Available Not Available Not Available doxycycline hyclate 100 mg capsule Take 1 capsule twice a day by oral route. 10/24 completed Not Available Not Available Not Available ketoconazol e 2 % shampoo 03/06 completed Not Available Not Available Not Available clindamycin HCl 300 mg capsule TAKE 1 CAPSULE BY MOUTH THREE TIMES A DAY 06/16 completed Not Available Not Available Not Available ammonium lactate 12 % lotion 10/12 completed Not Available Not Available Not Available loperamide 2 mg capsule 06/23 completed Not Available Not Available Not Available azithromyci n 250 mg tablet TAKE 2 TABLETS BY MOUTH TODAY, THEN TAKE 1 TABLET DAILY FOR 4 DAYS 07/20 completed Not Available Not Available Not Available cetirizine 5 mg tablet TAKE 1 TABLET BY MOUTH EVERYDAY AT BEDTIME 2022 active Not Available Not Available Not Avai lable Lidocaine Viscous 2 % mucosal solution 06/23 completed Not Available Not Available Not Available fluconazole 150 mg tablet 05/10 completed Not Available Not Available Not Available amiodarone 200 mg tablet TAKE 1 TABLET BY MOUTH EVERY DAY 06/18 completed Not Available Not Available Not Available benzonatate 200 mg capsule 05/31 completed Not Available Not Available Not Available fluconazole 200 mg tablet TAKE TWO TABLETS (400MG) ON THE FIRST DAY, FOLLOWED BY 1 TABLET (200MG) DAILY FOR 21 DAYS. 11/22 completed Not Available Not Available Not Available sucralfate 1 gram tablet TAKE 1 TABLET BY MOUTH THREE TIMES A DAY BEFORE MEALS active Not Available Not Available No t Available polysacchar michelle iron complex 150 mg iron capsule TAKE 1 CAPSULE BY MOUTH EVERY OTHER DAY 04/18 completed Not Available Not Available Not Available famotidine 40 mg tablet TAKE 1/2 TABLET TWICE A DAY(NEW DOSE) 01/12 completed Not Available Not Available Not Available cyanocobala min (vit B-12) 1,000 mcg tablet TAKE 1 TABLET BY MOUTH EVERY DAY 10/08 completed Not Available Not Available Not Available meclizine 12.5 mg tablet TAKE 1 TABLET 3 TIMES A DAY BY ORAL ROUTE NEEDED. active Not Available Not Available No t Available amlodipine 2.5 mg tablet TAKE 1 TABLET BY MOUTH EVERY DAY 06/16 completed Not Available Not Available Not Available metronidazo le 500 mg tablet TAKE 1 TABLET BY MOUTH TWICE A DAY FOR 7 DAYS 08/24 completed Not Available Not Available Not Available melatonin 3 mg tablet TAKE 1 TABLET BY MOUTH EVERYDAY AT BEDTIME active Not Available Not Available No t Available acyclovir 400 mg tablet TAKE 1 TABLET BY MOUTH TWICE A DAY 10/12 completed Not Available Not Available Not Available omeprazole 40 mg capsule,del ayed release TAKE 1 CAPSULE BY MOUTH EVERY DAY 30 MINUTES BEFORE BREAKFAST 06/23 completed Not Available Not Available Not Available tramadol 50 mg tablet 06/23 completed Not Available Not Available Not Available acetaminoph en 500 mg tablet TAKE 1 TABLET BY MOUTH EVERY 8 HOURS active Not Available Not Available No t Available triamcinolo ne acetonide 0.1 % topical cream AAA BID active Not Available Not Available Not Available spironolact one 25 mg tablet TAKE 1 TABLET BY MOUTH EVERY DAY IN THE MORNING active Not Available Not Available No t Available Ensure High Protein oral liquid Take 240 mL every day by oral route. 2023 active Not Available Not Available Not Avai lable hydrocortis one 2.5 % topical cream with perineal applicator AAA 2-3 times a day // 90 days supply 10/12 completed Not Available Not Available Not Available famotidine 20 mg tablet 1 tab PO BID 01/22 completed Not Available Not Available Not Available amiodarone 400 mg tablet 01/26 completed Not Available Not Available Not Available dexamethaso ne 1 mg tablet TAKE 1 TABLET BY MOUTH TO BE TAKEN AT 11PM AND TO DO BLOOD TEST THE NEXT DAY AT 8-9AM 07/09 completed Not Available Not Available Not Available Betimol 0.5 % eye drops 05/31 completed Not Available Not Available Not Available benzonatate 100 mg capsule TAKE 1 CAPSULE BY MOUTH THREE TIMES A DAY 06/13 completed Not Available Not Available Not Available simvastatin 5 mg tablet TAKE 1 TABLET AT BEDTIME 12/11 completed Not Available Not Available Not Available timolol maleate 0.25 % eye drops 06/23 completed Not Available Not Available Not Available desloratadi ne 5 mg tablet 1 tab PO QHS PRN 10/12 completed Not Available Not Available Not Available cephalexin 500 mg capsule 05/30 completed Not Available Not Available Not Available pantoprazol e 40 mg tablet,patricia yed release TAKE 1 TABLET EVERY DAY BY ORAL ROUTE IN THE MORNING. STOP OMEPRAZOL E active Not Available Not Available No t Available ranitidine 150 mg tablet TAKE ONE TABLET BY MOUTH ONCE DAILY active Not Available Not Available No t Available ferrous sulfate 300 mg (60 mg iron)/5 mL oral liquid Take 5 mL 3 times a day by oral route. 2023 active Not Available Not Available Not Avai lable lansoprazol e 30 mg capsule,del ayed release 05/10 completed Not Available Not Available Not Available prednisone 50 mg tablet 06/23 completed Not Available Not Available Not Available losartan 25 mg tablet TAKE 0.5 TABLETS EVERY DAY BY MOUTH IN THE MORNING. active Not Available Not Available No t Available omeprazole 20 mg capsule,del ayed release TAKE 1 CAPSULE BY MOUTH EVERY DAY IN THE MORNING active Not Available Not Available No t Available irbesartan 75 mg tablet TAKE 1/2 TABLET DAILY. NEW DOSE 06/23 completed Not Available Not Available Not Available cyanocobala min (vit B-12) 1,[address] 1 tablet every day by sublingua l route. 2023 active Not Available Not Available Not Avai lable mupirocin 2 % topical ointment APPLY A SMALL AMOUNT TO AFFECTED AREA 3 TIMES A DAY 11/22 completed Not Available Not Available Not Available telmisartan 20 mg tablet TAKE 1 TABLET BY MOUTH EVERY DAY active Not Available Not Available No t Available metoprolol succinate ER 25 mg tablet,exte nded release 24 hr TAKE 1 TABLET BY MOUTH EVERY DAY active Not Available Not Available No t Available irbesartan 150 mg tablet Take 1 tablet every day by oral route. 04/16 completed Not Available Not Available Not Available Aspir-81 mg tablet,patricia yed release Take 1 tablet every day by oral route. 01/26 completed Not Available Not Available Not Available cefuroxime axetil 500 mg tablet 04/18 completed Not Available Not Available Not Available estradiol 0.01% (0.1 mg/gram) vaginal cream APPLY 0.5-1G NIGHTLY TO VAGINA FOR 1 WEEK, THEN TUESDAY// TUESDAY active Not Available Not Available No t Available levofloxaci n 750 mg tablet 06/23 completed Not Available Not Available Not Available methylpredn isolone 4 mg tablets in a dose pack TAKE 6 TABLETS ON DAY 1 DIRECTED ON PACKAGE AND DECREASE BY 1 TAB EACH DAY FOR A TOTAL OF 6 DAYS 01/28 completed Not Available Not Available Not Available timolol maleate 0.5 % eye drops INSTILL 1 DROP INTO BOTH EYES TWICE DAILY active Not Available Not Available No t Available clobetasol 0.05 % scalp solution 02/28 completed Not Available Not Available Not Available ondansetron 4 mg disintegrat ing tablet 06/23 completed Not Available Not Available Not Available fluticasone propionate 50 mcg/actuati on nasal spray,suspe nsion USE 1 SPRAY IN EACH NOSTRILDA LAUREEN active Not Available Not Available No t Available ipratropium bromide 21 mcg (0.03 %) nasal spray SPRAY 2 SPRAYS INTO EACH NOSTRIL TWICE A DAY active Not Available Not Available No t Available amoxicillin 875 mg-potassiu m clavulanate 125 mg tablet TAKE 1 TABLET BY MOUTH EVERY 12 HOURS 08/24 completed Not Available Not Available Not Available tobramycin 0.3 %-dexametha sone 0.1 % eye drops,suspe nsion 01/28 completed Not Available Not Available Not Available melatonin ER 3 mg tablet,exte nded release Take 1 tablet every day by oral route at bedtime. 2022 active Not Available Not Available Not Avai lable Vitamin D3 25 mcg (1,000 unit) capsule Take 1 capsule every day by oral route. 07/03 completed Not Available Not Available Not Available moxifloxaci n 0.5 % eye drops 01/05 completed Not Available Not Available Not Available desloratadi ne 5 mg disintegrat ing tablet 1 tab Po QD PRN 01/28 completed Not Available Not Available Not Available Premarin 0.625 mg/gram vaginal cream Insert 0.5 applicato rsful twice a week by vaginal route. 06/30 completed Not Available Not Available Not Available cholestyram ine (with sugar) 4 gram powder for susp in a packet MIX WITH LIQUID AND TAKE 1 PACKET BY MOUTH DAILY NEEDED active Not Available Not Available No t Available rosuvastati n 5 mg tablet TAKE 1 TABLET BY MOUTH EVERY OTHER DAY active Not Available Not Available No t Available amiodarone 100 mg tablet TAKE 1 TABLET BY MOUTH EVERY DAY active Not Available Not Available No t Available nitrofurant oin monohydrate /macrocryst als 100 mg capsule Take 1 capsule every 12 hours by oral route. 10/23 completed Not Available Not Available Not Available Mucinex DM 30 mg-600 mg tablet,exte nded release 12 hr Take 1 tablet every 12 hours by oral route. 01/26 completed Not Available Not Available Not Available solifenacin 5 mg tablet TAKE 1 TABLET BY MOUTH EVERY DAY active Not Available Not Available No t Available ProAir HFA 90 mcg/actuati on aerosol inhaler 2 P TID PRN 2023 active Not Available Not Available Not Avai lable Combigan 0.2 %-0.5 % eye drops 05/10 completed Not Available Not Available Not Available diclofenac 1 % topical gel APPLY 2 GRAMS TO THE AFFECTED AREA(S) BY TOPICAL ROUTE 4 TIMES PER DAY active Not Available Not Available No t Available Creon 24,000-76,0 00-120,000 unit capsule,del ayed release TAKE 1 CAPSULE BY MOUTH THREE TIMES A DAY BEFORE MEALS 2024 active Not Available Not Available Not Avai lable Lumigan 0.01 % eye drops 10/03 completed Not Available Not Available Not Available Myrbetriq 25 mg tablet,exte nded release Take 1 tablet every day by oral route. 04/14 completed Not Available Not Available Not Available Eliquis 5 mg tablet Take 1 tablet twice a day by oral route. 06/23 completed Not Available Not Available Not Available Eliquis 2.5 mg tablet TAKE 1 TABLET BY MOUTH TWICE A DAY active Not Available Not Available No t Available Entresto 24 mg-26 mg tablet TAKE 1 TABLET TWICE A DAY. DISCONTIN UE TELMISART AN active Not Available Not Available No t Available ferrous sulfate 220 mg (44 mg iron)/5 mL oral elixir TAKE 6.8 ML (300MG) BY MOUTH 2 TIMES A DAY 2023 active Not Available Not Available Not Avai lable Fluzone High-Dose 7801-3906 (PF) 180 mcg/0.5 mL intramuscul ar syringe 08/29 completed Not Available Not Available Not Available magnesium 200 mg (as magnesium oxide) tablet Take 1 tablet every day by oral route. 2022 active Not Available Not Available Not Avai lable Shingrix (PF) 50 mcg/0.5 mL intramuscul ar suspension, kit 04/10 completed Not Available Not Available Not Available cyanocobala min (vit B-12) 1,000 mcg sublingual lozenge 1 tab sublingua l qd 10/08 completed Not Available Not Available Not Available Zenpep 25,000 unit-79,000 unit-105,00 0 unit capsule,del ayed release TAKE 1 CAPSULE BY MOUTH 3 TIMES A DAY BEFORE MEALS active Not Available Not Available No t Available Fluzone High-Dose (PF) 180 mcg/0.5 mL intramuscul ar syringe 06/16 completed Not Available Not Available Not Available Fluad 65yr up(PF)45 mcg(15 mcgx3)/0.5 mL intramuscul ar syringe 07/03 completed Not Available Not Available Not Available estradiol 1.25 mg/1.25 gram (0.1 %) transdermal gel packet INSERT INTO VAGINA DAILY X 2 WEEKS THEN TWICE PER WEEK THEREAFTE R active Not Available Not Available No t Available Fluzone High-Dose Quad 2019-21 (PF) 240 mcg/0.7 mL IM syringe 05/30 completed Not Available Not Available Not Available Vitals Date Recorded Body height Body mass index (BMI) Body weight Body temperature Respiratory rate Heart rate Systolic blood pressure Diastolic blood pressure Provider Name and Address Organization Details Last Updated DateTime 4 167.64 cm 19.7 kg/m2 46011.2 7 g 97.6 [degF] 18 /min 69 /min 113 mm[Hg] 70 mm[Hg] [facility] Date Recorded Body height Body temperature Respiratory rate Heart rate Body mass index (BMI) Body weight Systolic blood pressure Diastolic blood pressure Provider Name and Address Organization Details Last Updated DateTime 4 167.64 cm 97.8 [degF] 18 /min 66 /min 19.4 kg/m2 51596.0 8 g 128 mm[Hg] 65 mm[Hg] [facility] 15:[facility]20 Date Recorded Body height Body temperature Body mass index (BMI) Body weight Respiratory rate Heart rate Systolic blood pressure Diastolic blood pressure Provider Name and Address Organization Details Last Updated DateTime 4 167.64 cm 97.5 [degF] 19 kg/m2 19553.9 g 18 /min 69 /min 124 mm[Hg] 65 mm[Hg] [facility] 11:[facility]45 Date Recorded Body height Body temperature Respiratory rate Body mass index (BMI) Body weight Heart rate Systolic blood pressure Diastolic blood pressure Provider Name and Address Organization Details Last Updated DateTime 4 167.64 cm 97.5 [degF] 18 /min 19.4 kg/m2 09413.0 8 g 67 /min 108 mm[Hg] 59 mm[Hg] [facility] 12:03:26 Date Recorded Body height Body mass index (BMI) Body weight Body temperature Respiratory rate Heart rate Systolic blood pressure Diastolic blood pressure Provider Name and Address Organization Details Last Updated DateTime 5 167.64 cm 18.9 kg/m2 77334.3 1 g 97.6 [degF] 18 /min 71 /min 101 mm[Hg] 53 mm[Hg] Migdalia Peraza [facility] 5 11:38:34 Social History Question Answer Notes LastModified by Organizat ion Details LastModified Time Tobacco Smoking Status Never Smoker Ashlee Doyle MD [address] [facility] [address], [place], [address], [facility] 05/10/2017 15:11:55 What Is Your Level Of Alcohol Consumption? Occasional Information not available 05/10/2017 What Is Your Level Of Caffeine Consumption? 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 No Information n ot available 02/29/2020 In The 14 Days Before Symptom Onset, Have You Had Close Contact With A Person Who Is Under Investigation For COVID-19 While That Person Was Ill? No Information not available 02/29/2020 Have You Been To An Area Known To Be High Risk For COVID-19? No Information not available 02/29/2020 Are You Currently Employed? No Information not available 05/10/2017 Which Illicit Or Recreational Drugs Have You Used? No Information not available 05/10/2017 Have You Directly Handled Bats, Rodents, Or Primates From Ebola Endemic Areas? No Information not available 01/13/2021 Have You Processed Blood Or Body Fluids From An Ebola Virus Disease Patient Without Appropriate PPE? No Information not available 01/13/2021 Have You Had Household Contact With An Ebola Virus Disease Patient? No Information not available 01/13/2021 Have You Had Direct Contact With A Body In An Ebola-affected Area Without Appropriate PPE? No Information not available 01/13/2021 Have You Had Percutaneous (e.g. Needle Stick) Or Mucous Membrane Exposure To Blood Or Body Fluids From An Ebola Virus Disease Patient? No Information not available 01/13/2021 Have You Had Other Close Contact With An Ebola Virus Disease Patient In Health Care Facilities Or Community Settings? No Information not available 01/13/2021 Do You Reside In Or Have You Traveled To An Area Where Ebola Virus Transmission Is Active? No Information not available 01/13/2021 What Is Your Occupation? Retired [employer] [place] Information not available 05/10/2017 Are There Any Guns Present In Your Home? No Information not available 01/13/2021 High Number Of Sexual Partners No Information not available 01/13/2021 History Of Inconsistent/no Condom Use No Information not available 01/13/2021 Live Alone Or With Others? Alone [employer] [facility] [place] Information not available 05/10/2017 Marital Status [facility] Informatio n not available 05/10/2017 What Was The Date Of Your Most Recent Tobacco Screening? 07/09/2022 [email or web address] Information not available 07/09/2022 Mother With HIV? No Informat ion not available 01/13/2021 Performs Monthly Self-breast Exam? No Information no t available 01/13/2021 Seat Belts Used Routinely Yes Information not available 01/13/2021 Sexual Partner Has HIV? No Information not available 01/13/2021 Sexual Partner Uses IV Drugs? No Information not available 01/13/2021 Smoke Alarm In Home Yes Information not available 01/13/2021 Do You Use Sunscreen Routinely? No Information not available 01/13/2021 Have You Used IV Drugs? No Information not available 01/13/2021 Sex: Unknown Functional Status Question Answer Note LastModified by Organization D etails LastModified Time Are you able to care for yourself? Yes [facility] Information n ot available 05/10/2017 Mental Status None recorded. Family History Relationship Description Onset Age of this Age Resolved Age Notes LastModified by Organization Details LastModified Time Father Harmful pattern of use of alcohol 50 [email or web address] Not available 2016 15:10:39 Father Cirrhosis of liver [email or web address] Not available 2016 15:10:50 Mother Coronary arterioscler osis 82 [email or web address] Not available 2016 15:11:07 Medical History No medical history recorded. Gynecological HistoryNo gynecological history recorded. Obstetrics History GPAL:G 0 P 0 0 0 0 Immunizations Vaccine Type Date Status Note Provider Nam e and Address Organization Details Recorded Time Influenza, split virus, quadrivalent, preservative 8 completed Ashlee Doyle MD [address], [place], [address], [facility] 06/12/2023 16:15:07 zoster recombinant 9 completed Ashlee Doyle MD [address], [place], [address], [facility] 06/12/2023 16:15:07 zoster live 9 completed Ashlee Doyle MD [address], [place], [address], [facility] 06/12/2023 16:15:08 zoster live 9 completed Ashlee Doyle MD [address], [place], [address], [facility] 06/12/2023 16:15:08 Influenza, split virus, quadrivalent, preservative 9 completed Ashlee Doyle MD [address], [place], [address], [facility] 06/12/2023 16:15:07 Influenza, split virus, quadrivalent, preservative 0 completed Ashlee Doyle MD [address], [place], [address], [facility] 06/12/2023 16:15:07 SARS-COV-2 (COVID-19) vaccine, UNSPECIFIED 1 completed Ashlee Doyle MD [address], [place], [address], [facility] 06/12/2023 16:15:07 COVID-19, mRNA, LNP-S, PF, 30 mcg/0.3 mL dose 1 completed Ashlee Doyle MD [address], [place], [address], [facility] 06/12/2023 16:15:07 Influenza, split virus, quadrivalent, preservative 1 completed Ashlee Doyle MD [address], [place], [place], [address] [place] [address], [facility] 06/12/2023 16:15:07 COVID-19, mRNA, LNP-S, PF, 30 mcg/0.3 mL dose 2 completed Ashlee Doyle MD [address], [place], [address] [place] [address], [facility] 06/12/2023 16:15:07 Influenza, high-dose, quadrivalent, PF 2 completed Ashlee Doyle MD [address], [place], [address], [facility] 06/12/2023 16:15:07 Influenza, MDCK, quadrivalent, PF 3 completed Ashlee Doyle MD [address], [place], [address], [facility] 06/12/2023 16:15:07 RSV, recombinant, protein subunit RSVpreF, adjuvant reconstituted, 0.5 mL, PF 3 completed Ashlee Doyle MD [address], [place], [address], [facility] 06/12/2023 16:15:07 COVID-19, mRNA, LNP-S, PF, nicole-sucrose, 30 mcg/0.3 mL 3 completed Ashlee Doyle MD [address], [place], [address], [facility] 06/12/2023 16:15:07 COVID-19, mRNA, LNP-S, PF, nicole-sucrose, 30 mcg/0.3 mL 4 completed Ashlee Doyle MD [address], [place], [address], [facility] 06/01/2024 14:33:16 COVID-19, mRNA, LNP-S, PF, nicole-sucrose, 30 mcg/0.3 mL 4 completed Ashlee Doyle MD [address], [place], [address], [facility] 06/01/2024 14:33:16 Influenza, high-dose, trivalent, PF 4 completed Ashlee Doyle MD [address], [place], [address], [facility] 06/01/2024 14:33:16 COVID-19, mRNA, LNP-S, PF, nicole-sucrose, 30 mcg/0.3 mL 5 completed Ashlee Doyle MD [address], [place], [address], [facility] 12/26/2024 19:01:03 Td(adult) unspecified formulation 6 completed Ashlee Doyle MD [address], [place], [address], [facility] 06/12/2023 16:15:07 Influenza, split virus, quadrivalent, preservative 6 completed Ashlee Doyle MD [address], [place], [address], [facility] 06/12/2023 16:15:07 Influenza, split virus, quadrivalent, preservative 7 completed Ashlee Doyle MD [address], [place], [address], [facility] 06/12/2023 16:15:07 Pneumococcal conjugate PCV 13 5 completed Ashlee Doyle MD [address], [place], [address], [facility] 06/12/2023 16:15:08 pneumococcal polysaccharide PPV23 9 completed Ashlee Doyle MD [address], [place], [address], [facility] 06/12/2023 16:15:07 zoster live 0 completed Ashlee Doyle MD [address], [place], [address], [facility] 06/12/2023 16:15:08 Hep B, unspecified formulation 8 completed Ashlee Doyle MD [address], [place], [address], [facility] 06/12/2023 16:15:08 Hep A, adult 8 completed Ashlee Doyle MD [address], [place], [address], [facility] 06/12/2023 16:15:08 Past Encounters Encounter ID Performer Location Encounter Start Date Encounter Closed Date Diagnosis/Indication Diagnosis SNOMED-CT Code Diagnosis ICD10 Code Diagnosis Note [id number] 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 [id number] [facility], [facility] [address] [place] [address] 08/29/2017 14:57:53 08/29/2017 15:28:41 Benign hypertension 94834018 I10 Hyperlipidemia 56804608 E78.5 Osteoarthritis 510985097 M19.90 Carotid ar petar stenosis 87662557 I65.29 Screening for malignant neoplasm of colon 414200375 Z12.11 last C scope 11/06/13 , good for 10 years [id number] Ashlee Doyle MD [facility], [facility] [address] [place] [address] 09/21/2017 10:11:41 09/21/2017 10:59:28 Cough 42371515 R05 Diarrhea 33631797 R19.7 [id number] Ashlee Doyle MD 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 , asymptomat ic for now Osteoarthritis 758579202 M19.90 Left bundl e branch block 38330701 I44.7 will check EKG Hemorrhoids 33760868 K64 .9 Polyuria 54262584 R35.8 Screening for malignant neoplasm of colon 755427009 Z12.11 last C scope 11/06/13 , good for 10 years Screening mammography 24 770234 Z12.31 per pt had mammogram 01/2017 Screening for malignant neoplasm of cervix 986574891 Z12.4 per pt had PAP 06/2017 [id number] Ashlee Doyle MD [place] [facility], [facility] [address] [place] [address] 02/28/2018 13:37:07 02/28/2018 14:29:09 Benign hypertension 05548842 I10 good control Osteopenia 961298112 M85 .80 per pt had DEXA 03/2017 Transient cerebral ischemia 995582552 G45.9 ASA 83 , no recurrence Carotid ar petar stenosis 20706412 I65.29 last U/S 2016 Screening mammography 24 887615 Z12.31 per pt had mammogram 01/2018 Screening for malignant neoplasm of colon 944716315 Z12.11 last C scope 11/06/13 , good for 10 years [id number] Ashlee Doyle MD [place] [address] [place] [address] 06/16/2018 12:54:37 06/16/2018 13:53:05 Gastroesophageal reflux disease without esophagitis 673072429 K21.9 Hyperlipidemia 02701458 E78.5 last LDL 11/2017 Sinusitis 73124804 J32.9 Benign hypertension 1072 5009 I10 good control Screening mammography 24 785622 Z12.31 per pt had mammogram 01/2018 Screening for malignant neoplasm of cervix 564425507 Z12.4 per pt had PAP 06/2017 Screening for malignant neoplasm of colon 591633549 Z12.11 last C scope 11/06/13 , good for 10 years Active or passive immunization 762265432 Z23 Carotid ar petar stenosis 28660259 I65.29 last U/S 2015 ., per pt cardiology is repeating [id number] Ashlee Doyle MD [facility], [facility] [address] [place] [address] 10/03/2018 14:57:58 10/03/2018 16:11:48 Benign hypertension 01670967 I10 good control Carotid ar petar stenosis 01615144 I65.29 last U/S 08/10/18 ., per pt cardiology is repeating Transient cerebral ischemia 732088040 G45.9 ASA 83 , no recurrence Vitamin D deficiency 347 88881 E55.9 Gastroesop hageal reflux disease without esophagitis 080050796 K21.9 Sinusitis 20353224 J32.9 Screening mammography 24 249323 Z12.31 per pt had mammogram 01/2018 Screening for malignant neoplasm of cervix 993569617 Z12.4 per pt had PAP 06/2017 Hemorrhoids 47675188 K64 .9 Screening for malignant neoplasm of colon 779893484 Z12.11 last C scope 11/06/13 , good for 10 years Mixed hyperlipidemia 267 195838 E78.2 [id number] Ashlee Doyle MD 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 , asymptomat ic for now Age relate d macular degeneration 783066595 H35.30 sees ophth every 6 months Allergic r hinitis 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 13932619 J30.1 Carotid ar petar stenosis 89394912 I65.29 last U/S 08/10/18 ., per pt cardiology is repeating Focal onse t epileptic seizure 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, [facility] [address] [place] [address] 04/10/2019 11:48:21 04/10/2019 12:24:24 Benign hypertension 31830850 I10 good control Hyperlipidemia 93764826 E78.5 last LDL 01/01/19 Osteopenia 163424753 M85 .80 per pt had DEXA 05/12/2017 Carotid ar petar stenosis 11177002 I65.29 last U/S 08/10/18 ., per pt cardiology is repeating Screening mammography 24 398752 Z12.31 per pt had mammogram 01/2018 Screening for malignant neoplasm of colon 617666788 Z12.11 last C scope 11/06/13 , good for 10 years [id number] Ashlee Doyle MD [facility], [facility] [address] [place] [address] 07/03/2019 11:59:15 07/03/2019 12:33:09 Benign hypertension 93900621 I10 per pt BP on the low side , will decrease irbesartan to 1/2 tab of 75 , BP 2 weeksseen ophth 06/2019 Hyperlipidemia 17074603 E78.5 last LDL 01/01/19 Osteopenia 040995839 M85 .80 per pt had DEXA 05/12/2017 Carotid ar petar stenosis 82088343 I65.29 last U/S 08/10/18 ., per pt cardiology is repeating Gastroesop hageal reflux disease without esophagitis 125530563 K21.9 Sinusitis 07290223 J32.9 Screening mammography 24 830676 Z12.31 per pt had mammogram 02/2019 Screening for malignant neoplasm of cervix 735450783 Z12.4 per pt had PAP 06/2017 Screening for malignant neoplasm of colon 938681914 Z12.11 last C scope 11/06/13 , good for 10 years Active or passive immunization 482713967 Z23 up to date [id number] Ashlee Doyle MD [facility] [address] [place] [address] 10/08/2019 14:13:26 10/08/2019 15:12:20 Benign hypertension 72120762 I10 seen ophth 06/2019 Carotid ar petar stenosis 30532375 I65.29 last U/S 08/10/18 ., Hyperlipidemia 77774887 E78.5 last LDL 01/01/19 History of Malignant melanoma 354193011 Z85.820 sees derm on yearly basis Osteoarthritis 150996777 M19.90 Osteopenia 159129816 M85 .80 per pt had DEXA 05/12/2017 Screening mammography 24 266890 Z12.31 per pt had mammogram 02/2019 Screening for malignant neoplasm of colon 698297362 Z12.11 last C scope 11/06/13 , good for 10 years Active or passive immunization 516128313 Z23 up to date [id number] [facility] [place] [facility], [facility] [address] [place] [address] 11/19/2019 11:02:38 11/19/2019 11:38:22 Varicose veins of lower extremity 87840686 I83.93 Skin nodule 77239080 R22 .9 left coates - Pain in le ft lower limb 152323950 M79.605 medial and lateral of lower calf Paresthesi a of lower extremity 294715200 R20.2 off and on x 6 months - left pretibial area - no numbness or weaknessoc curs occasional ly - [id number] Ashlee Doyle MD [place], [facility] [address] [place] [address] 02/29/2020 12:53:53 02/29/2020 13:37:18 Adult health examination 219403603 Z00.01 Benign hypertension 1072 5009 I10 seen ophth 06/2019 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 , asymptomat ic for now Age relate d macular degeneration 679812762 H35.30 sees ophth every 6 months Allergic r hinitis 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 33755924 J30.1 stable on OTC meds Carotid ar petar stenosis 78863401 I65.29 last U/S 08/10/18 ., Gastroesop hageal reflux disease without esophagitis 004158508 K21.9 stable on diet control History of Malignant melanoma 445680829 Z85.820 sees derm on yearly basis Hyperlipidemia 87260461 E78.5 last LDL 01/01/19 Left bundl e branch block 33216097 I44.7 will check EKG 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.B0 less than 2 times a month Osteoarthritis 308555519 M19.90 tylenol 500 TID Osteopenia 597017777 M85 .80 per pt had DEXA 05/12/2017 Focal onse t epileptic seizure 76317979 G40.109 no recurrence Transient cerebral ischemia 528538867 G45.9 ASA 81 , no recurrence Screening mammography 24 414941 Z12.31 per pt had mammogram 02/2019 Screening for malignant neoplasm of cervix 094925194 Z12.4 per pt had PAP 06/2017 Screening for malignant neoplasm of colon 725118466 Z12.11 last C scope 11/06/13 , good for 10 years Active or passive immunization 000365596 Z23 up to date [id number] Ashlee Doyle MD [place] [facility], [facility] [address] [place] [address] 05/30/2020 12:46:46 05/30/2020 13:45:24 Benign hypertension 89142514 I10 seen ophth 06/2019hol d irbesartan 3 weeks to see if it will help with ST Allergic r hinitis 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 32992152 J30.1 stable on OTC meds Carotid ar petar stenosis 16362615 I65.29 last U/S 08/10/18 ., Gastroesop hageal reflux disease without esophagitis 391856919 K21.9 stable on diet control Hyperlipidemia 47956125 E78.5 last LDL 03/06/20 Osteopenia 023651792 M85 .80 per pt had DEXA 05/12/2017 Transient cerebral ischemia 869873055 G45.9 ASA 81 , no recurrence Idiopathic peripheral neuropathy 77581703 G60.9 per neurology notedeclin e meds Chronic sore throat 2754 72388 J31.2 Family his tory of diabetes mellitus 078159251 Z83.[address] A1c 11/19/19 Screening mammography 24 733649 Z12.31 per pt had mammogram 02/2019 Screening for malignant neoplasm of colon 585574126 Z12.11 last C scope 11/06/13 , good for 10 years Active or passive immunization 721105319 Z23 up to date [id number] Ashlee Doyle MD [place] [facility], [facility] [address] [place] [address] 01/13/2021 16:32:19 01/13/2021 17:26:08 Localized swelling, mass and lump, neck 904053104 R22.1 Benign hypertension 1072 5009 I10 seen ophth 06/2019hol d irbesartan 3 weeks to see if it will help with ST Carotid ar petar stenosis 03900010 I65.29 last U/S 06/12/20 History of Malignant melanoma 120893517 Z85.820 sees derm on yearly basis Hyperlipidemia 07988790 E78.5 last LDL 03/06/20 Idiopathic peripheral neuropathy 07327911 G60.9 per neurology notedeclin e meds Osteopenia 993478673 M85 .80 per pt had DEXA 03/06/20 Right uppe r quadrant pain 312347972 R10.11 Screening mammography 24 485434 Z12.31 per pt had mammogram 06/20/20 Screening for malignant neoplasm of cervix 524258125 Z12.4 per pt had PAP 06/2017 Screening for malignant neoplasm of colon 244330344 Z12.11 last C scope 11/06/13 , good for 10 years Active or passive immunization 635607589 Z23 up to date [id number] Ashlee Doyle MD [place] 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, [facility] [address] [place] [address] 02/04/2021 11:46:37 02/04/2021 12:31:51 Swelling of upper limb 785761430 R22.31 Pain of ri ght shoulder joint 4388646172 7359520 M25.511 [id number] Ashlee Doyle MD [place] [facility], [facility] [address] [place] [address] 06/23/2021 11:52:57 06/23/2021 12:46:00 Paroxysmal atrial fibrillation 456062182 I48.0 on amiodarone and eliquis Pneumonia 134052029 J18. 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 S/P 4 cycles R-CHOP 04/2021 Hyperlipidemia 91993311 E78.5 last LDL 03/06/20 Allergic r hinitis 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 80754013 J30.1 stable on OTC meds Osteopenia 137417812 M85 .80 per pt had DEXA 03/06/20 Idiopathic peripheral neuropathy 33535920 G60.9 per neurology notedeclin e meds Gastroesop hageal reflux disease without esophagitis 454946251 K21.9 stable on diet control Screening mammography 24 177974 Z12.31 per pt had mammogram 06/20/20 Screening for malignant neoplasm of cervix 046645617 Z12.4 per pt had PAP 06/2017 Screening for malignant neoplasm of colon 751220783 Z12.11 last C scope 11/06/13 , good for 10 years Active or passive immunization 641341437 Z23 up to dateflu shot and COVID booster Adult heal th examination 850026789 Z00.01 last ophth eval 05/2021 Coronary arteriosclerosis 12524247 I25.10 asymptomat icmild per cardiology note Carotid ar petar stenosis 70929097 I65.29 last U/S 06/12/20 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 , asymptomat ic for now Benign hypertension 1072 5009 I10 seen ophth 06/2019goo d off irbesartan Age relate d macular degeneration 863415189 H35.30 sees ophth every 6 months Hemorrhoids 67380790 K64 .9 Left bundl e branch block 88632677 I44.7 asymptomat icseen cardiology 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.B0 less than 2 times a month [id number] Ashlee Doyle MD [facility], [facility] [address] [facility] [address] [place] [address] 12/11/2021 12:26:26 12/23/2021 18:32:01 Benign hypertension 36485735 I10 seen ophth 11/2021good off irbesartan Carotid ar petar stenosis 17275523 I65.29 last U/S 06/12/20hav ing US 12/15/21 Coronary arteriosclerosis 69504694 I25.10 asymptomat icmild per cardiology note Hyperlipidemia 03769513 E78.5 last LDL 03/06/20car diology changed to rosuva 5 Idiopathic peripheral neuropathy 08932782 G60.9 per neurology notedeclin e meds 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, face AND/OR neck 71645539 C85.91 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.B0 less than 2 times a monthhavin g MRI of brain 12/15/21 Paroxysmal atrial fibrillation 065657137 I48.0 cardiology had holter ,cardiolog y stopped amiodarone and toprol Screening mammography 24 370336 Z12.31 per pt had mammogram 09/21/21 Screening for malignant neoplasm of cervix 854115991 Z12.4 per pt had PAP 06/2017 Screening for malignant neoplasm of colon 597002347 Z12.11 last C scope 11/06/13 , good for 10 years Active or passive immunization 448684823 Z23 up to dateflu shot and COVID booster History of SARS-CoV-2 29 35503669 21819162 Z86.16 tested +ve 10/2021 Long-term drug therapy 910536218 Z79.899 statin [id number] Ashlee Doyle MD [facility], [facility] [address] [place] [address] 01/28/2022 11:28:38 01/28/2022 12:24:45 Arthritis of hand 565812288 M13.849 labs @ ER (CBC,CMP,U ron acid and ESR) were NLX ray showed OA Benign hypertension 1072 5009 I10 seen ophth 11/2021good off irbesartan Carotid ar petar stenosis 76315014 I65.29 last U/S 07/13/21 Coronary arteriosclerosis 67487151 I25.10 asymptomat icmild per cardiology note Diffuse hi gh grade B-cell lymphoma 839758392 C83.30 S/P 4 cycles R-CHOP 04/2021 Hyperlipidemia 34506478 E78.5 last LDL 12/24/21card iology changed to rosuva 5 Idiopathic peripheral neuropathy 72624784 G60.9 per neurology notedeclin e medslast B12 08/11/21 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.B0 less than 2 times a monthhavin g MRI of brain 12/15/21 Paroxysmal atrial fibrillation 679894903 I48.0 cardiology had holter ,cardiolog y stopped amiodarone and toprol Screening mammography 24 682306 Z12.31 per pt had mammogram 09/21/21 Screening for malignant neoplasm of cervix 118085097 Z12.4 per pt had PAP 06/2017 Screening for malignant neoplasm of colon 316670114 Z12.11 last C scope 11/06/13 , good for 10 years Active or passive immunization 303590433 Z23 up to dateflu shot and COVID booster Allergic r hinitis 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 69547330 J30.1 stable on OTC meds [id number] Ashlee Doyle MD [place] [facility], [facility] [address] [place] [address] 04/02/2022 12:41:21 04/02/2022 13:38:06 Acute urinary tract infection 461977989 N39.0 Low back pain 904321151 M54.50 Congestion of nasal sinus 08176793 R09.81 Benign hypertension 1072 5009 I10 seen ophth 11/2021good off irbesartan Screening mammography 24 471627 Z12.31 per pt had mammogram 09/21/21 Active or passive immunization 033976602 Z23 up to dateflu shot and COVID booster [id number] Ashlee Doyle MD [place], [facility] [address] [place] [address] 07/09/2022 12:26:29 07/09/2022 13:18:33 Adult health examination 914786996 Z00.01 last ophth eval 05/2022 Benign hypertension 1072 5009 I10 seen ophth 11/2021good off irbesartan Allergic r hinitis 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 19874302 J30.1 stable on OTC meds Carotid ar petar stenosis 36339921 I65.29 last U/S 07/13/21 Coronary arteriosclerosis 62062928 I25.10 asymptomat icmild per cardiology note Diffuse hi gh grade B-cell lymphoma 928275499 C83.30 S/P 4 cycles R-CHOP 04/2021 Gastroesop hageal reflux disease without esophagitis 798888489 K21.9 stable on diet control History of Malignant melanoma 867391917 Z85.820 sees derm on yearly basis History of SARS-CoV-2 29 11156200 30309853 Z86.16 tested +ve 10/2021 Hyperlipidemia 14507107 E78.5 last LDL 12/24/21card iology changed to rosuva 5 Idiopathic peripheral neuropathy 56980342 G60.9 per neurology notedeclin e medslast B12 08/11/21 Left bundl e branch block 14457048 I44.7 asymptomat icseen cardiology Long-term drug therapy 947740414 Z79.899 statin Open-angle glaucoma of left eye 966842739 H40.1130 ophth eval 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.B0 less than 2 times a monthhavin g MRI of brain 12/15/21 Osteoarthritis 668076349 M19.90 tylenol 500 TID Osteopenia 278999070 M85 .80 per pt had DEXA 03/06/20 Paroxysmal atrial fibrillation 012128867 I48.0 cardiology had holter ,cardiolog y stopped amiodarone and toprol Focal onse t epileptic seizure 93428872 G40.109 no recurrence Screening mammography 24 976169 Z12.31 per pt had mammogram 09/21/21 Screening for malignant neoplasm of cervix 519830050 Z12.4 per pt had PAP 06/2017 Screening for malignant neoplasm of colon 919693261 Z12.11 last C scope 11/06/13 , good for 10 years Active or passive immunization 319622067 Z23 up to dateflu shot and COVID booster Increased frequency of urination 714063003 R35.0 Hemorrhoids 95539487 K64 .9 Congestion of nasal sinus 98318649 R09.81 [id number] Ashlee Doyle MD [facility] [address] [place] [address] 10/12/2022 12:17:42 10/12/2022 13:49:28 Benign hypertension 72234056 I10 seen ophth 11/2021good off irbesartan last EKG 06/28/22 Carotid ar petar stenosis 11573645 I65.29 last U/S 07/13/21 Coronary arteriosclerosis 64227684 I25.10 asymptomat icmild per cardiology note Gastroesop hageal reflux disease without esophagitis 745929783 K21.9 stable on diet control Hyperlipidemia 77313683 E78.5 last LDL 12/24/21card iology changed to rosuva 5 Paroxysmal atrial fibrillation 183000817 I48.0 cardiology had holter ,cardiolog y stopped amiodarone and toprolchad score 4-5 Diffuse hi gh grade B-cell lymphoma 162077786 C83.30 S/P 4 cycles R-CHOP 04/2021 Vitamin B deficiency 479 83896 E53.9 Screening mammography 24 493372 Z12.31 per pt had mammogram 09/21/21 Long-term drug therapy 072276243 Z79.899 statin Screening for malignant neoplasm of cervix 371415256 Z12.4 per pt had PAP 06/2017 Screening for malignant neoplasm of colon 229421752 Z12.11 last C scope 11/06/13 , good for 10 years Active or passive immunization 711360282 Z23 up to dateflu shot and COVID booster Mixed urin vini incontinence 963674024 N39.46 [id number] Ashlee Doyle MD [facility] [address] [place] [address] 01/26/2023 11:04:40 01/26/2023 11:53:47 Atrial fibrillation 69540139 I48.91 stablesees cardiology on reg basis Benign hypertension 1072 5009 I10 seen ophth 08/2022 per ptlast EKG 01/04/23 Osteoarthritis 580622285 M19.90 tylenol 500 TID Arthritis of hand 970157 005 M13.849 labs @ ER (CBC,CMP,U ron acid and ESR) were NLX ray showed OA Age relate d macular degeneration 768752373 H35.30 sees ophth every 6 months Carotid ar petar stenosis 95886263 I65.29 last U/S 07/13/21 Hyperlipidemia 97060783 E78.5 last LDL 12/24/21card iology changed to rosuva 5 Idiopathic peripheral neuropathy 98311193 G60.9 per neurology notedeclin e medslast B12 08/11/21 Long-term drug therapy 279130366 Z79.899 statin 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.B0 less than 2 times a monthhavin g MRI of brain 12/15/21 Hypomagnesemia 347395857 E83.42 Hyponatremia 61806806 E8 7.1 no salt restrictio n Screening mammography 24 856039 Z12.31 per pt had mammogram 11/08/22 Screening for malignant neoplasm of cervix 023320233 Z12.4 per pt had PAP 06/2017 Screening for malignant neoplasm of colon 630864505 Z12.11 last C scope 11/06/13 , good for 10 years Active or passive immunization 092631680 Z23 up to dateflu shot and COVID booster [id number] Ashlee Doyle MD [facility], [facility] [address] [place] [address] 04/14/2023 11:58:27 04/14/2023 13:37:29 Cellulitis of lower leg 133427145 L03.119 Insomnia 328667951 G47.0 0 Benign hypertension 1072 5009 I10 seen ophth 08/2022 per ptlast EKG 01/04/23 Carotid ar petar stenosis 12963557 I65.29 last U/S 07/13/21 Paroxysmal atrial fibrillation 021560554 I48.0 cardiology had holter ,cardiolog y stopped amiodarone and toprolchad score 4-5anticoa gulation safty education Cough 00913238 R05.9 Hypomagnesemia 078594720 E83.42 Mixed hyperlipidemia 267 992041 E78.2 Long-term drug therapy 855310761 Z79.899 statin Screening mammography 094395 Z12.31 per pt had mammogram 11/08/22 Screening for malignant neoplasm of colon 933250393 Z12.11 last C scope 11/06/13 , good for 10 years Screening for malignant neoplasm of cervix 479100626 Z12.4 per pt had PAP 06/2017 Active or passive immunization 666694208 Z23 up to dateflu shot and COVID booster [id number] Ashlee Doyle MD [place] [facility], [facility] [address] [place] [address] 06/16/2023 11:35:15 06/16/2023 13:03:22 Dysphagia 36890628 R13.10 Body mass index 20-24 - normal 454160873 Z68.20 down 10 LBs without trying Benign hypertension 1072 5009 I10 on the low side today , with light headinesss top amlodipine BP 2 weeksseen ophth 08/2022 per ptlast EKG 01/04/23 Dysuria 60553595 R30.0 Carotid ar petar stenosis 86041258 I65.29 last U/S 10/12/22 per pt Paroxysmal atrial fibrillation 539310203 I48.0 cardiology had holter ,anita score 4-5anticoa gulation safty education Screening mammography 24 099414 Z12.31 per pt had mammogram 11/08/22 Screening for malignant neoplasm of cervix 957169747 Z12.4 per pt had PAP 06/2017 Screening for malignant neoplasm of colon 149008108 Z12.11 last C scope 11/06/13 , good for 10 years Active or passive immunization 710213707 Z23 up to date Osteopenia 176189788 M85 .80 per pt had DEXA 11/08/22 Fatigue 49629707 R53.83 Hyperlipidemia 81811144 E78.5 last LDL 12/24/21card iology changed to rosuva 5 [id number] Ashlee Doyle MD [facility] [facility], [facility] [address] [place] [address] 06/27/2023 10:57:18 06/27/2023 12:29:38 Benign hypertension 28222148 I10 on the higher side @ homeadd 12.5 losartanBP 2 weeksseen ophth 08/2022 per ptlast EKG 01/04/23 Dysuria 43130453 R30.0 Hyponatremia 73808938 E8 7.1 no salt restrictio n Screening for malignant neoplasm of cervix 457457871 Z12.4 per pt had PAP 06/2017 Active or passive immunization 187929795 Z23 up to date Atrophic vaginitis 08207 000 N95.2 [id number] Ashlee Doyle MD [facility], [facility] [address] [place] [address] 08/24/2023 10:58:39 08/24/2023 12:05:07 Benign hypertension 92389248 I10 good controlon 12.5 losartanBP 2 weeksseen ophth 08/2023 per ptlast EKG 01/04/23 Carotid ar petar stenosis 66873326 I65.29 last U/S 10/12/22 per pt Coronary arteriosclerosis 65735581 I25.10 asymptomat icmild per cardiology note Gastroesop hageal reflux disease without esophagitis 055234980 K21.9 GI add pantoprazo le 40 BID and carafate Hyponatremia 25462276 E8 7.1 no salt restrictio n Screening mammography 24 594280 Z12.31 per pt had mammogram 11/08/22 Screening for malignant neoplasm of cervix 299288001 Z12.4 per pt had PAP 06/2023 Screening for malignant neoplasm of colon 065026336 Z12.11 last C scope 11/06/13 , good for 10 years Active or passive immunization 851155977 Z23 up to date Adult heal th examination 050105655 Z00.01 last ophth eval 05/2023 Focal onse t epileptic seizure 40080971 G40.109 no recurrence Family his tory of diabetes mellitus 634095969 Z83.[address] A1c 05/13/23 Diffuse hi gh grade B-cell lymphoma 733755328 C83.30 S/P 4 cycles R-CHOP 04/2021 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 59580 I82.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 , asymptomat ic for now Age relate d macular degeneration 770565138 H35.30 sees ophth every 6 months Allergic r hinitis 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 26289318 J30.1 stable on OTC meds History of Malignant melanoma 508252018 Z85.820 sees derm on yearly basis History of SARS-CoV-2 29 47969760 27723026 Z86.16 tested +ve 10/2021 Hyperlipidemia 11788394 E78.5 last LDL 05/13/23car diology changed to rosuva 5 Hypomagnesemia 442081662 E83.42 last level 06/21/23 Idiopathic peripheral neuropathy 04875933 G60.9 per neurology notedeclin e medslast B12 06/21/23 Increased frequency of urination 524685619 R35.0 Insomnia 287365655 G47.0 0 better Left bundl e branch block 98784629 I44.7 asymptomat icseen cardiology Long-term drug therapy 643535062 Z79.899 statin , last A1c 05/11/23 Macrocytosis 615666081 D 75.89 last b12 06/27/23 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, [facility] [address] [place] [address] 11/23/2023 11:02:35 11/23/2023 12:01:52 Candidiasis of the esophagus 00627393 B37.81 had EGD 10/20/23 , had 2 rounds of fluconazol e Congestive heart failure 92508351 I50.9 last ECHO 10/2023 Anemia 808840797 D64.9 Paroxysmal atrial fibrillation 905488208 I48.0 cardiology had holter ,anita score 4-5anticoa gulation safty education Carotid ar petar stenosis 54258671 I65.29 last U/S 10/12/22 per pt Active or passive immunization 400773214 Z23 up to date Body mass index less than 20 067558621 Z68.1 [id number] Ashlee Doyle MD [place] [facility], [facility] [address] [place] [address] 01/06/2024 12:05:09 01/06/2024 14:11:13 Mild memory disturbance 896489341 R41.3 mild , Age relate d macular degeneration 832225937 H35.30 sees ophth every 6 monthsneed help with ADLsform 4 pages done today Idiopathic peripheral neuropathy 32108832 G60.9 per neurology notedeclin e medslast B12 06/21/23 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.B0 less than 2 times a monthhavin g MRI of brain 12/15/21 Paroxysmal atrial fibrillation 885457203 I48.0 cardiology had holter ,anita score 4-5anticoa gulation safty education [id number] Ashlee Doyle MD [place] [facility], [facility] [address] [place] [address] 03/06/2024 14:59:36 03/06/2024 16:02:00 Anemia 366521057 D64.9 Benign hypertension 1072 5009 I10 good controlBP 2 weeksseen ophth 08/2023 per ptlast EKG 01/04/23 Cough 04930381 R05.9 Carotid ar petar stenosis 32459259 I65.29 last U/S 10/12/22 per pt Hyperlipidemia 00278781 E78.5 last LDL 05/13/23car diology changed to rosuva 5 Fall on same level 87403 003 W18.30XA one time , 2 months agoeducati on Screening mammography 24 168250 Z12.31 per pt had mammogram 12/30/23 Screening for malignant neoplasm of cervix 810819631 Z12.4 per pt had PAP 06/2023 Screening for malignant neoplasm of colon 295821576 Z12.11 last C scope 11/06/13 , good for 10 years Active or passive immunization 482136177 Z23 up to date Benign par oxysmal positional vertigo 529802244 H81.10 [id number] Ashlee Doyle MD [facility] [address] [place] [address] 04/18/2024 11:36:37 04/18/2024 12:38:39 Pneumonia 137557279 J18.9 LLL on CXR 04/05/24O2 is 93% Congestive heart failure 82720014 I50.9 last ECHO 10/2023 , EF 45%resolve d Paroxysmal atrial fibrillation 512328101 I48.0 cardiology had holter ,anita score 4-5anticoa gulation safty education Iron defic iency anemia 44366184 D50.9 Benign hypertension 1072 5009 I10 good controlBP 2 weeksseen ophth 08/2023 per ptlast EKG 01/04/23 Candidiasis of vagina 72 600902 B37.31 [id number] Ashlee Doyle MD [facility], [facility] [address] [place] [address] 06/18/2024 11:27:00 06/18/2024 12:45:24 Benign hypertension 92706634 I10 good controlBP 2 weeksseen ophth 08/2023 per ptlast EKG 06/27/23 Congestive heart failure 45101879 I50.9 last ECHO 10/2023 , EF 45%resolve d Dysphagia 75236862 R13.1 0 seen GI , having EGD Paroxysmal atrial fibrillation 408485404 I48.0 cardiology had holter ,anita score 4-5anticoa gulation safty education Stasis dermatitis 032984 05 I87.2 low ext Screening mammography 24 465679 Z12.31 per pt had mammogram 12/30/23 Screening for malignant neoplasm of cervix 742888769 Z12.4 per pt had PAP 06/2023 Screening for malignant neoplasm of colon 908174013 Z12.11 last C scope 11/06/13 , good for 10 years Active or passive immunization 740164161 Z23 up to date [id number] Ashlee Doyle MD [facility], [facility] [address] [place] [address] 10/08/2024 11:08:50 10/08/2024 12:22:58 Benign hypertension 93825111 I10 good controlBP 2 weeksseen ophth 08/2024 per ptlast EKG 06/27/23 Carotid ar petar stenosis 94947311 I65.29 last U/S 10/12/22 per pt Hypomagnesemia 457856218 E83.42 last level 06/21/23 Hyperlipidemia 08719724 E78.5 last LDL 05/13/23car diology changed to rosuva 5 Idiopathic peripheral neuropathy 42126057 G60.9 per neurology notedeclin e medslast B12 06/21/23 Iron defic iency anemia 12048928 D50.9 Long-term drug therapy 541520325 Z79.899 statin , last A1c 02/2024 ,amiodaron e , scheduled for PFT 11/2023 per pt Congestive heart failure 52885789 I50.9 last ECHO 10/2023 , EF 45%resolve d Screening mammography 24 906990 Z12.31 per pt had mammogram 12/30/23 Screening for malignant neoplasm of cervix 403578776 Z12.4 per pt had PAP 06/2023 Screening for malignant neoplasm of colon 665385939 Z12.11 last C scope 11/06/13 , no polyp Active or passive immunization 386678139 Z23 up to date Unintentio nal weight loss 260651010 R63.4 Paroxysmal atrial fibrillation 323027045 I48.0 cardiology had holter ,anita score 4-5anticoa gulation safty education Health Concerns Section Related Observation LastModified by Organization Detai ls LastModified Time None Recorded Concern Status LastModified by Organization Details LastModified Time None Recorded Advance Directives Directive None Recorded Payers Encounter Date Sequence Insurance Name Policy Number Policy Tai Covered Member ID Tai Member ID Guarantor Name 01/06/2024 2 [employer] [employer] (PPO) 104 Agustina Cordova [id number] Agustina Cordova 01/06/2024 1 [place] Agustina Cordova [id number] Agustina Cordova 03/06/2024 2 [place] ([place]) 104 Agustina Cordova [id number] Agustina Cordova 03/06/2024 1 [place] Agustina Cordova [id number] Agustina Cordova 04/18/2024 2 [place] 104 Agustina Cordova [id number] Agustina Cordova 04/18/2024 1 [place] Agustina Cordova [id number] Agustina Cordova 06/18/2024 2 [place] ([place]) 104 Agustina Cordova [id number] Agustina Cordova 06/18/2024 1 [place] Agustina Cordova [id number] Agustina Cordova 10/08/2024 2 [place] 104 Agustina Cordova [id number] Agustina Cordova 10/08/2024 1 [place] Agustina Cordova [id number] Agustina Cordova Notes Date Note Type Note Provider Name and Address Organization Details Recorded Time 01/06/2024 text/html Hypertension F/UReported bypatient.Medications: taking medications as directed; no side effects from medication Lifestyle:regular exercise; limiting/avoiding salt; compliant with low salt diet Associated Symptoms:no dizziness; no lightheadedness; no chest pain; no shortness of breath; no palpitations; no edema; no calf pain with exertion; no headache need form to get to her insurance to get help with ADLs Ashlee Doyle MD [address], [place], [address], [facility] 01/06/2024 13:47:54 03/06/2024 text/html Hypertension F/UReported bypatient.Medications: taking medications as directed; no side effects from medication Lifestyle:regular exercise; limiting/avoiding salt; compliant with low salt diet Associated Symptoms:no dizziness; no lightheadedness; no chest pain; no shortness of breath; no palpitations; no edema; no calf pain with exertion; no headacheMedicare Annual Wellness VisitReported bypatient.Falls Risk Assessment:no frequent falls while walking; no fall in the past year; no dizziness/vertigo; fall(s) since last visit1 seen cardiology , wants to start entresto Ashlee Doyle MD [address], [place], [address], [facility] 03/06/2024 15:56:45 04/18/2024 text/html Hospitalization Contact RecordReported bypatient.Follow Update of discharge: (Please enter in format 'MM/DD/YYYY') (04/07/24); date of contact: (Please enter in format 'MM/DD/YYYY') (04/09/24)Hypertension F/UReported bypatient.Medications: taking medications as directed; no side effects from medication Lifestyle:regular exercise; limiting/avoiding salt; compliant with low salt diet Associated Symptoms:no dizziness; no lightheadedness; no chest pain; no shortness of breath; no palpitations; no edema; no calf pain with exertion; no headache went to ER 04/03/24 for weakness , inpt till 04/07/24 Dx Pneumonia , Better now Ashlee Doyle MD [address], [place], [address], [facility] 04/18/2024 12:33:14 06/18/2024 text/html Hypertension F/UReported bypatient.Medications: taking medications as directed; no side effects from medication Lifestyle:regular exercise; limiting/avoiding salt; compliant with low salt diet Associated Symptoms:no dizziness; no lightheadedness; no chest pain; no shortness of breath; no palpitations; no edema; no calf pain with exertion; no headache Ashlee Doyle MD [address] [facility] [address], [place], [address], [facility] 06/18/2024 12:41:56 10/08/2024 text/html Hypertension F/UReported bypatient.Medications: taking medications as directed; no side effects from medication Lifestyle:regular exercise; limiting/avoiding salt; compliant with low salt diet Associated Symptoms:no dizziness; no lightheadedness; no chest pain; no shortness of breath; no palpitations; no edema; no calf pain with exertion; no headache Ashlee Doyle MD [address] [facility] [address], [place], [address], [facility] 10/08/2024 12:13:35 OBGyn Episode No OBEpisode recorded.
--- OUTSIDE RECORDS SUMMARY | 2025-01-15 13:16 | XMS_ITS | Encounter Summary ---
Author Organization [facility] Address [address] [place] [address] Care Team Providers Care Police Sergeant Name Role Phone Olivia Foss MD Primary Care Provider Unavailable Encounter Details Date Type Department Care Team (Late st Contact Info) Description 02/19/2020 Lab Requisition [facility] DermPath Lab [address] 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 Gender Identity Not on file Sexual Orientation Not on file documented as of this encounter Plan of Treatment Not on file documented as of this encounter Procedures Procedure Name Priority Date/Time Associated Diagnosis Comments DERMATOPATHOLOGY Routine 02/18/2020 12:0 0 AM CDT documented in this encounter Results * DERMATOPATHOLOGY (02/18/2020 12:00 AM CDT) Case Report Dermatopathology Report Case: [id number] Authorizing Provider: Yumiko Dykes MD Collected: 02/18/2020 12:00 AM Ordering Location: [facility] DermPath Lab Received: 02/19/2020 08:29 AM Pathologist: Annemarie Garza MD Specimen: Skin, left leg 0 2:31 PM CDT DERMATOPATHOLOGY LABORATORY Final Diagnosis Specimen A. SKIN, left leg: BASAL CELL CARCINOMA, INFILTRATIVE PATTERN (C44.719) PRESENT AT MARGIN 0 2:31 PM CDT DERMATOPATHOLOGY LABORATORY Clinical History R/O SCC. Check margins. 0 2:31 PM CDT DERMATOPATHOLOGY LABORATORY Gross Description Specimen A: Received is one formalin filled container labeled with the patient's name and designated left leg. The specimen consists of a shave biopsy measuring [id number], bisected. Jar 0+. 0 2:31 PM CDT DERMATOPATHOLOGY LABORATORY Microscopic Description Specimen A. SKIN, left leg: Within the dermis there are nodular aggregates of basaloid cells associated with fibromyxoid stroma and epithelial-stromal clefts. At the advancing margin of the neoplasm, there are smaller angulated nests that infiltrate the dermis. This lesion is present at the margin of the specimen. 0 2:31 PM CDT DERMATOPATHOLOGY LABORATORY Disclaimer An external and internal positive and negative controls are appropriate for the histochemical, immunohistochemical and immunofluorescence stain(s) in this case (if any), except where stated explicitly. The performance characteristics of the stain(s) cited in this report were developed and its performance characteristic determined by the Dermatopathology Laboratory at [facility], directed by Dr. Kwame Agrawal. These tests need not be, and therefore are not, approved by the [place] Food and Drug Administration. The tests are used for clinical purposes. Billing Codes Specimen Charges Stain Charges 65734 1 0 2:31 PM CDT DERMATOPATHOLOGY LABORATORY Embedded Images 0 2:31 PM CDT DERMATOPATHOLOGY LABORATORY Pathology/Cytolog y TISSUE SPECIMEN FROM SKIN / Unknown 02/18/2020 02/19/2020 8:29 AM CDT us Yumiko Dykes MD LAB - PATHOLOGY/CYTOLOGY ORD ERABLES Final Result DERMATOPATHOLOGY LABORATORY [facility] - Department of Dermatology [facility] [address], [facility] [phone] documented in this encounter Visit Diagnoses Not on filedocumented in this encounter Care Teams Police Sergeant Relationship Specialty Start Date End Date Olivia Foss MD PCP - General 02/05/19 documented as of this encounter
--- OUTSIDE RECORDS SUMMARY | 2025-01-15 13:17 | XMS_ITS | Encounter Summary ---
Author Organization [facility] Address [address] [place] [address] Care Team Providers Care Stress Engineer Name Role Phone Olivia Foss MD Primary Care Provider Unavailable Encounter Details Date Type Department Care Team (Late st Contact Info) Description 04/09/2019 Lab Requisition [facility] Care DermPath Lab [address] [facility], [place] [address] Olivia Fernandez MD [address] [facility] 3 [place] [address] Social History Tobacco Use Types Packs/Day Years Used Date Smoking Tobacco: Never Assessed Comments Unknown Sex and Gender Information Value Date Recorded Sex Assigned at Not on file 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 Gender Identity Not on file Sexual Orientation Not on file documented as of this encounter Plan of Treatment Not on file documented as of this encounter Procedures Procedure Name Priority Date/Time Associated Diagnosis Comments DERMATOPATHOLOGY Routine 04/06/2019 12:0 0 AM CDT documented in this encounter Results * DERMATOPATHOLOGY (04/06/2019 12:00 AM CDT) Case Report Dermatopathology Report Case: [id number] Authorizing Provider: Olivia Fernandez MD Collected: 04/06/2019 12:00 AM Pathologist: Oanh Agrawal MD Received: 04/09/2019 06:40 AM Specimen: Skin, left fa 9 3:47 PM CDT DERMATOPATHOLOGY LABORATORY Final Diagnosis Specimen A. 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 Previous Bx: [id number]. 3:47 PM CDT DERMATOPATHOLOGY LABORATORY Gross Description Specimen A: Received is one formalin filled container labeled with the patient's name and designated left fa. The specimen consists of a non-oriented ellipse of skin measuring [id number]. The epidermal surface is unremarkable. The margin is inked green. The 12 o'clock and 6 o'clock tips are submitted in cassette 1. The remainder of the ellipse is serially sectioned and submitted in cassettes 2-6. Jar 0. 3:47 PM CDT DERMATOPATHOLOGY LABORATORY Microscopic Description Specimen A. SKIN, left fa: The epidermis shows parakeratosis, full thickness disorderly maturation of keratinocytes, mitoses at different levels, and dyskeratotic cells. This lesion is not present at the margin of the specimen. There are fibroblasts and collagen bundles oriented parallel to the skin surface with elongated blood vessels, some of which are oriented perpendicular to the skin surface. 3:47 PM CDT DERMATOPATHOLOGY LABORATORY Disclaimer An external and internal positive and negative controls are appropriate for the histochemical, immunohistochemical and immunofluorescence stain(s) in this case (if any), except where stated explicitly. The performance characteristics of the stain(s) cited in this report were developed and its performance characteristic determined by the Dermatopathology Laboratory at [facility], directed by Dr. Kwame Agrawal. These tests need not be, and therefore are not, approved by the [place] Food and Drug Administration. The tests are used for clinical purposes. Billing Codes Specimen Charges Stain Charges 50594 1 3:47 PM CDT DERMATOPATHOLOGY LABORATORY Embedded Images 3:47 PM CDT DERMATOPATHOLOGY LABORATORY Pathology/Cytolog y TISSUE SPECIMEN FROM SKIN / Unknown 04/06/2019 04/09/2019 6:40 AM CDT Olivia Fernandez MD LAB - PATHOLOGY/CYTOLOGY OR DERABLES Final Result DERMATOPATHOLOGY LABORATORY [facility] - Department of Dermatology [address] [facility], [address]th [place] [address], [facility] [phone] documented in this encounter Visit Diagnoses Not on filedocumented in this encounter Care Teams Stress Engineer Relationship Specialty Start Date End Date Olivia Foss MD PCP - General 02/05/19 documented as of this encounter
--- OUTSIDE RECORDS SUMMARY | 2025-01-15 13:17 | XMS_ITS | Encounter Summary ---
Author Organization [facility] Address [address] [place] [address] Care Team Providers Care Dispute Specialist Name Role Phone Ashlee Doyle MD Primary Care Provider [phone] Randi Barney MD Unavailable Miscellaneous, Not In File Unavailable Unava ilable Sheryl Latham MD Unavailable [phone] Jonh Junior MD Primary Care Provide r Ashlee Doyle MD Primary Care Provider [phone] Jonh Junior MD Unavailable Encounter Details Date Type Department Care Team (Late st Contact Info) Description 03/31/2021 Telephone [facility]iology [facility] [address] [place] [address] Kindra Mir, RT Social History Tobacco Use Types Packs/Day Years Used Date Smoking Tobacco: Never Smokeless Tobacco: Never Alcohol Use Standard Drinks/Week Comments Yes 0 (1 standard drink = 0.6 oz pur e alcohol) Comments No Sex and Gender Information Value Date Recorded Sex Assigned at Not on file 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 Female 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 Gender Identity Not on file Sexual Orientation Not on file Occupation Industry Job Start Date Job End Date retired Not on file Not on file Not on file documented as of this encounter Plan of Treatment Not on file documented as of this encounter Visit Diagnoses Not on filedocumented in this encounter Additional Health Concerns Infection Onset Date Last Indicated Resolved Time COVID: Suspected 05/06/2021 05/06/2021 05/06/2021 9:52 AM CDT COVID: Suspected 01/05/2023 01/05/2023 01/05/2023 1:36 AM CDT documented as of this encounter Care Teams Dispute Specialist Relationship Specialty Start Date End Date Ashlee Doyle MD [address] [place] [address] PCP - General 02/09/18 08/24/23 Jonh Junior MD PCP - General Cardiology 08/25/23 09/04/23 Ashlee Doyle MD [address] [place] [address] PCP - General Internal Medicine 09/05/23 Randi Barney MD [address] [place] [address] Referring Physician Cardiology 03/12/21 08/24/23 Miscellaneous, Not In File 03/24/21 Sheryl Latham MD Medical Oncologist/Investment Banking Associate Medical Oncology 05/12/21 Jonh Junior MD Referring Physician Cardiology 09/05/23 documented as of this encounter
--- OUTSIDE RECORDS SUMMARY | 2025-01-15 13:17 | XMS_ITS | Clinical Summary ---
Author Organization [facility] Address [address] [place] [address] Care Team Providers Care Internet Assessor Name Role Phone Ashlee Doyle MD Primary Care Provider [phone] Melvin Pedraza MD Unavailable Allergies Active Allergy Reactions Criticality Noted Date Comments Sulfa Antibiotics Unknown 11/19/2019 Medications simvastatin 5 MG tablet Take 5 mg by mouth every evening. 06/21/2016 Active irbesartan 75 MG tablet Take 35 mg by mouth daily. 03/05/2020 Active desloratadine 5 MG Tab tablet Take 5 mg by mouth as needed. 01/10/2020 Active aspirin 81 MG chewable tablet Chew 81 mg by mouth daily. 06/21/2016 Active Active Problems Problem Noted Date Diagnosed Date Idiopathic peripheral neuropathy 05/30/2020 Varicose veins of leg with pain, left 03/06/2020 History of malignant melanoma 01/05/2019 Dyspnea on exertion 06/06/2018 Coronary artery disease invo lving [place] coronary artery of [place] heart without angina pectoris 06/06/2018 Carotid bruit 06/06/2018 Carotid artery stenosis 08/29/2017 Osteoarthrosis 05/10/2017 Left bundle branch block 05/10/2017 Partial seizure with impaire d consciousness ([facility]) 06/21/2016 Overview (02/25/2021): Partial seizure with impaired consciousness Transient cerebral ischemia 05/04/2016 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 Osteopenia 12/10/2013 Overview (02/25/2021): Osteopenia Mitral valve prolapse 12/10/2013 Overview (02/25/2021): Mitral valve prolapse Gastroesophageal reflux disease 12/10/2013 Overview (02/25/2021): GERD (gastroesophageal reflux disease) Degeneration of intervertebral disc of cervical region 12/10/2013 Overview (02/25/2021): DDD (degenerative disc disease), cervical Essential hypertension 12/10/2013 Overview (02/25/2021): Hypertension Arnold-Chiari malformation ([facility]) Overview (02/25/2021): Arnold-Chiari malformation Thrombosed external hemorrhoids 09/17/2011 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 Hyperlipidemia 07/24/2010 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 Immunizations Immunization Administration Dates Next Due Fluzone High Dose - >Age 65 (Prefilled Syringe) 06/04/2017,05/21/2016,06/06/2015 Hepatitis A (Generic) 01/30/2008,01/30/2008,05/20 Hepatitis B (Generic: Adult) 01/30/2008,07/07/20 07,06/05/2007 Pneumococcal (Pneumovax 23) 05/21/2009, 9 Pneumococcal (Prevnar 13) 02/20/2015 Shingrix 03/29/2019 Td 06/19/2016 Tdap (Generic) 11/10/2012 Zoster (Zostavax) 87100 Unt/0.65Ml 03/29,09/21/2018,09/19/2013,2009 Family History Medical History Relation Comments Alcohol Abuse Father Aneurysm Mother aorta Atherosclerosis Mother Relation Status Comments Father (Age 50) Mother (Age 82) Social History Tobacco Use Types Packs/Day Years Used Date Smoking Tobacco: Never Smokeless Tobacco: Never Alcohol Use Standard Drinks/Week Comments Never 0 (1 standard drink = 0.6 oz pur e alcohol) AUDIT-C Answer Date Recorded Q1: How often do you have a drink containing alc ohol? 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 Gender Identity Not on file Sexual Orientation Not on file Last Filed Vital Signs Vital Sign Reading Time Taken Comments Blood Pressure 140/62 08/21/2020 1:18 PM VITICULTURE TEACHER Pulse 97 08/21/2020 1:18 PM VITICULTURE TEACHER Temperature - - Respiratory Rate - - Oxygen Saturation - - Inhaled Oxygen Concentration - - Weight 67.5 kg (148 lb 12.8 oz) 08/21/2020 1:18 PM VITICULTURE TEACHER Height 165.1 cm (5' 5 ) 08/21/2020 1:18 PM VITICULTURE TEACHER Body Mass Index 24.76 08/21/2020 1:18 PM VITICULTURE TEACHER Plan of Treatment Health Maintenance Due Date Last Done Comments ASCVD LDL 1937 ASCVD Statin 1935 Annual Medicare Wellness Visit 2002 RSV Immunization or 60+ Years (1 - 1-dose 75+ series) 2012 Zoster Vaccines (3 of 3) 05/24/2019 019, 03/29/2019, 09/21/2018, Additional history exists COVID-19 Vaccine ( - 2023- season) 2024 DTaP, Tdap and Td Vaccines (3 - Td or Tdap) 06/19/2026 06/19/2016, 11/10/2012 Pneumococcal Vaccine: 50+ Years Completed 02/20/2015, 05/21/2009, 11/10/2008 Meningococcal B Vaccine Aged Out No l onger eligible based on patient's age to complete this topic Meningococcal Vaccine Aged Out No aric rudi eligible based on patient's age to complete this topic RSV Immunizations Under 20 Months Aged Out No longer eligible based on patient's age to complete this topic Insurance MEDICARE [facility] MEDICARE [facility] Care Teams Internet Assessor Relationship Specialty Start Date End Date Ashlee Doyle MD PCP - General INTERNAL MEDICINE 02/18/20 Melvin Pedraza MD [address] [address] Referring Physician VASCULAR SURGERY 02/18/20
--- OUTSIDE RECORDS SUMMARY | 2025-01-15 13:17 | XMS_ITS | Encounter Summary ---
Author Organization [facility] Address [address] [place] [address] Care Team Providers Care Duralumin Mechanic Name Role Phone Olivia Foss MD Primary Care Provider Unavailable Encounter Details Date Type Department Care Team (Late st Contact Info) Description 02/07/2019 Lab Requisition [facility] Care DermPath Lab [address] [facility] [place] [address] Olivia Fernandez MD [address] [facility] [address] [place] [address] Social History Tobacco Use Types Packs/Day Years Used Date Smoking Tobacco: Never Assessed Comments Unknown Sex and Gender Information Value Date Recorded Sex Assigned at Not on file Legal Sex Female 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 Gender Identity Not on file Sexual Orientation Not on file documented as of this encounter Plan of Treatment Not on file documented as of this encounter Procedures Procedure Name Priority Date/Time Associated Diagnosis Comments DERMATOPATHOLOGY Routine 02/05/2019 12:0 0 AM CDT documented in this encounter Results * DERMATOPATHOLOGY (02/05/2019 12:00 AM CDT) Case Report Dermatopathology Report Case: [id number] Authorizing Provider: Olivia Fernandez MD Collected: 02/05/2019 12:00 AM Pathologist: Oanh Agrawal MD Received: 02/07/2019 08:16 AM Specimens: A) - Skin, right thigh B) - Skin, left FA 9 10:54 AM CDT DERMATOPATHOLOGY LABORATORY Final Diagnosis Specimen A. SKIN, right thigh: INTRADERMAL MELANOCYTIC NEVUS (D22.71) Specimen B. 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 B: R/O SCC, non-healing. 10:54 AM [facility] DERMATOPATHOLOGY LABORATORY Gross Description Specimen A: Received is one formalin filled container labeled with the patient's name and designated right thigh. The specimen consists of a shave measuring [id number]. Jar 0. Specimen B: Received is one formalin filled container labeled with the patient's name and designated left FA. The specimen consists of a shave (2 pieces) measuring [id number] & [id number]. Jar 0. 10:54 AM [facility] DERMATOPATHOLOGY LABORATORY Microscopic Description Specimen A. SKIN, right thigh: There are nests of cytologically bland melanocytes within the dermis that mature with depth. Specimen B. SKIN, left FA: The epidermis shows parakeratosis, full thickness disorderly maturation of keratinocytes, mitoses at different levels, and dyskeratotic cells. This lesion is present at the margin of the specimen. 10:54 AM [facility] DERMATOPATHOLOGY LABORATORY Disclaimer An external and internal positive and negative controls are appropriate for the histochemical, immunohistochemical and immunofluorescence stain(s) in this case (if any), except where stated explicitly. The performance characteristics of the stain(s) cited in this report were developed and its performance characteristic determined by the Dermatopathology Laboratory at [facility], directed by Dr. Kwame Agrawal. These tests need not be, and therefore are not, approved by the [place] Food and Drug Administration. The tests are used for clinical purposes. Billing Codes Specimen Charges Stain Charges 51824 08683 1 1 9 10:54 AM T DERMATOPATHOLOGY LABORATORY Embedded Images 10:54 AM [facility] DERMATOPATHOLOGY LABORATORY Pathology/Cytology TISSUE SPECIMEN FROM SKIN / Unknown 02/05/2019 02/07/2019 8:16 AM CDT Miscellaneous samples (specimen) TISSUE SPECIMEN FROM SKIN / Unknown 02/05/2019 02/07/2019 8:16 AM CDT Olivia Fernandez MD LAB - PATHOLOGY/CYTOLOGY OR DERABLES Final Result DERMATOPATHOLOGY LABORATORY [facility] - Department of Dermatology [address] [place] [address], [address] [place] [address], [facility] [phone] documented in this encounter Visit Diagnoses Not on filedocumented in this encounter Care Teams Duralumin Mechanic Relationship Specialty Start Date End Date Olivia Fsos MD PCP - General 02/05/19 documented as of this encounter
--- OUTSIDE RECORDS SUMMARY | 2025-01-15 14:05 | XMS_ITS ---
Author Organization [facility] Address 1 [place] [address] Care Team Providers Care Corporate Legal Secretary Name Role Phone Miscellaneous, Not In File Unavailable Unava ilable Sheryl Latham MD Unavailable Ashlee Doyle MD Primary Care Provider [phone] Jonh Junior MD Unavailable [phone] Active Problems Problem Noted Date Diagnosed Date [...] stable from prior notes from [facility] - Fundus exam and photos appear stable [...] should continue to monitor with her general expeditor Assessment & Plan (04/01/2022 3:54 PM CDT): [...] (ERM) peel right eye (OD) 2007 at [facility]. Asked patient to bring notes or forward prior to next visit. Follows with Dr. Izaguirre at [facility]. Will have second opinion with [facility] next available per patient request. CVA (cerebral vascular accident) 01/13/2022 History of severe acute resp iratory syndrome coronavirus 2 (SARS-CoV-2) disease 12/11/2021 On correction drug therapy 12/11/2021 Bradycardia 12/04/2021 Sinus pause [...] exertion 06/06/2018 Coronary artery disease invo lving karluk coronary artery of karluk heart without angina pectoris 06/06/2018 Assessment & [...]
--- OUTSIDE RECORDS SUMMARY | 2025-01-15 14:05 | XMS_ITS | Encounter Summary ---
Author Organization [facility] Address [address] [place] [address] Phone Care Team Providers Care Out Patient Therapist Name Role Phone Miscellaneous, Not In File Unavailable Unava ilable Sheryl Latham MD Unavailable [phone] Ashlee Doyle MD Primary Care Provider [phone] Jonh Junior MD Unavailable Encounter Details Date Type Department Care Team (Late st Contact Info) Description 01/11/2025 Telephone [facility] Cardiology [address] 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
--- OUTSIDE RECORDS SUMMARY | 2025-01-15 14:05 | XMS_ITS | CONTINUITY OF CARE DOCUMENT ---
Author Name taylor vazquez Address Unknown Organization [facility] Address [address] [place] [address] [address] [place] [address] Phone [phone] Care Team Providers Care Prototype Technician Name Role Phone Gilmar CRUZ, Juliana Unavailable Juliana Schafer MD Unavailable [phone] INSURANCE PROVIDERS Payer name Policy type / Coverage type [place] red green party ID [facility] [id number] [place] MED[place] Medicare [id number]
--- OUTSIDE RECORDS SUMMARY | 2025-01-15 14:05 | XMS_ITS | Referral Summary ---
Author Organization [facility] Address 1 [place] [address] Care Team Providers Care Hand Button Splitter Name Role Phone Miscellaneous, Not In File Unavailable Unava ilable Sheryl Latham MD Unavailable [phone] Ashlee Doyle MD Primary Care Provider [phone] Jonh Junior MD Unavailable [phone] Encounters Date Type Department Care Team Description 01/11/2025 Telephone [facility] 8th [place] [address] [place] [address] Jonh Junior MD 11/20/2024 Results Follow-Up [facility] 1 [place] [address] India Contreras DO 11/15/2024 1:27 PM [employer] OFFIC[employer] - 11/15/2024 11:59 PM [employer] Hospital Encounter [facility] [address] [place] [address] Vaginal irritation Discharge Disposition: Discharge to home or self care 11/15/2024 1:00 PM [employer] OFFICER Office Visit [facility] [address] [place] [address] India Contreras DO Encounter for annual routine gynecological examination (Primary Dx); Vaginal irritation; Vaginal atrophy 10/30/2024 10:00 AM [employer] OFFIC[employer] Office Visit [facility] Gastroenterology [facility] 12th [place] [address] [place] [address] Dallas Weston MD Esophageal dysphagia (Primary Dx); [...] 5 mg tabletIndication s: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 Asked patient to bring notes or forward prior to next visit. Follows with Dr. Izaguirre at [facility]. Will have second opinion with [facility] next available per patient request. 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 angina pectoris 06/06/2018 Assessment & [...] Immunization Administration Dates Next Due COVID-19 mRNA ([employer]) 0.3 m L (30 mcg) vaccine (12 [...] on file Legal Sex Female 2:10 AM [employer] OFFICER Gender Identity Not on file Sexual Orientation Not on file Occupation Industry Job Start Date Job End Date retired Not on file Not on file Not on file Last Filed Vital Signs Vital Sign Reading Time Taken Comments Blood Pressure 120/60 11/15/2024 12:54 PM [employer]ICER Pulse 72 10/30/2024 9:57 AM [employer]IC[employer] Temperature 36.2 C (97.1 F) 10/30/2024 9:57 AM [employer]ICER Respiratory Rate 16 08/30/2024 10:38 AM [employer]ICER Oxygen Saturation 97% 08/30/2024 10:38 AM [employer]ICER Inhaled Oxygen Concentration - - Weight 54.9 kg (121 lb) 11/15/2024 12:54 PM [employer]IC[employer] Height 165.1 cm (5' 5 ) 11/15/2024 12:54 PM [employer]IC[employer] Body Mass Index 20.14 11/15/2024 12:54 PM [employer]IC[employer] Plan of Treatment Not on file Procedures Procedure Name Priority Date/Time Associated Diagnosis Comments VAGINITIS PANEL Routine 11/15/2024 3:37 PM [employer]ICER Vaginal irritation from Last 3 Months Results * Vaginitis panel Vaginal (11/15/2024 3:37 PM [employer]ICER) Aimee DNA probe Not Detected Not Detected Comment:Testing performed by : [facility], [address] [place] [address]., [id number] Gardnerella DNA probe Not Detected Not Detected BENJAMIN ELLINGTON Comment:Testing performed by : [facility], [address] [place] [address]., [id number] Trichomonas DNA probe Not Detected Not Detected BENJAMIN Comment: Interpretive Data Testing performed by [facility] via Affirm VPIII Microbial Identification Test, a [...] last revised on 2020. Testing performed by: [facility], [address] [place] [address]., [address] Vaginal 11/15/2024 3:37 PM [employer]ICER 11/16/2024 1:52 PM [employer] OFFICER us India Contreras DO LAB MICROBIOLOGY - GENE RAL ORDERABLES Final Result Performing Organization Address City/State/ZIP Co ks Phone Number BENJAMIN [phone] [facility] Department [place] [address] from Last 3 Months [place] [address] [facility] [place] [address] MEDICARE ANTH ACCESS CHOICE Member Subscriber Plan / Payer ( fective 2001-Present) Name:Agustina Arias Relation to Subscriber:Self Name:AGUSTINA ARIAS Payer ID:[id number] (NAIC) Group ID:[id number] Type:Urlist Address: [facility] [id number] ACCESS MEDICARE [facility] FEDERAL Advance Directives For more information, please contact: [phone] * Full Code (Latest Code Status on [...] 11:35 PM 02/20/2021 8:13 PM Care Teams Hand Button Splitter Relationship Specialty Start Date End Date Ashlee Doyle MD [address] [place] [address] PCP - General Internal Medicine 09/05/23 Miscellaneous, Not In File 03/24/21 Sheryl Latham MD Medical Oncologist/B2B Account Executive Medical Oncology 05/12/21 Jonh Junior MD [address] [place] [address] Referring Physician Cardiology 09/05/23
--- OUTSIDE RECORDS SUMMARY | 2025-01-15 14:05 | XMS_ITS | Clinical Summary ---
Author Organization [facility] Address 1 [place] [address] Care Team Providers Care Fisher Eel Name Role Phone Miscellaneous, Not In File Unavailable Unava ilable Sheryl Latham MD Unavailable Ashlee Doyle MD Primary Care Provider [phone] Jonh Junior MD Unavailable Allergies Active Allergy [...] 5 mg tabletIndication s:Coronary artery disease involving enterprise coronary artery of enterprise heart without angina pectoris Take 1 tablet [...] stable from prior notes from [facility] - Fundus exam and photos appear stable [...] should continue to monitor with her general agent Assessment & Plan (04/01/2022 3:54 PM CDT): [...] [facility]. Will have second opinion with [facility] next available per patient request. CVA (cerebral vascular accident) 01/13/2022 History of severe acute resp iratory syndrome coronavirus 2 (SARS-CoV-2) disease 12/11/2021 On watermaster drug therapy 12/11/2021 Bradycardia 12/04/2021 Sinus pause [...] exertion 06/06/2018 Coronary artery disease invo lving enterprise coronary artery of enterprise heart without angina pectoris 06/06/2018 Assessment & [...] Description 01/11/2025 Telephone [facility] Cardiology [address] [facility] 8th [place] [address] Jonh Junior MD 11/20/2024 Results Follow-Up [facility] 1 [place] [address] India Contreras DO 11/15/2024 1:27 PM 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 - 11/15/2024 11:59 PM 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 Hospital Encounter [facility] [address] [place] [address] Vaginal irritation Discharge Disposition: Discharge to home or self care 11/15/2024 1:00 PM 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 Office Visit [facility] [address] [place] [address] India Contreras DO Encounter for annual routine gynecological examination (Primary Dx); Vaginal irritation; Vaginal atrophy 10/30/2024 10:00 AM 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 Office Visit [facility] Gastroenterology [facility] 12th [place] [address] [place] [address] Dallas Weston MD Esophageal dysphagia (Primary Dx); Achalasia; Dyspepsia; Aimee infection, esophageal (HCC) from Last 3 Months Immunizations Immunization Administration Dates Next Due COVID-19 mRNA ([employer]) 0.3 m L (30 mcg) vaccine (12 [...] on file Legal Sex Female 2:10 AM 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 Gender Identity Not on file Sexual Orientation [...] Comments Blood Pressure 120/60 11/15/2024 12:54 PM 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 Pulse 72 10/30/2024 9:57 AM 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 Temperature 36.2 C (97.1 F) 10/30/2024 9:57 AM 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 Respiratory Rate 16 08/30/2024 10:38 AM 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 Oxygen Saturation 97% 08/30/2024 10:38 AM 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 Inhaled Oxygen Concentration - - Weight 54.9 kg (121 lb) 11/15/2024 12:54 PM 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 Height 165.1 cm (5' 5 ) 11/15/2024 12:54 PM 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 Body Mass Index 20.14 11/15/2024 12:54 PM 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 Plan of Treatment Health Maintenance Due Date [...] Comments VAGINITIS PANEL Routine 11/15/2024 3:37 PM 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 Vaginal irritation from Last 3 Months Results * Vaginitis panel Vaginal (11/15/2024 3:37 PM 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) Aimee DNA probe Not Detected Not Detected Comment:Testing performed by : [facility], [address] [place] [address]., [address] Gardnerella DNA probe Not Detected Not Detected BENJAMIN Comment:Testing performed by : [facility], [address] [place] [address]., [id number] Trichomonas DNA probe Not Detected Not Detected BENJAMIN Comment: Interpretive Data Testing performed by [facility] via Affirm VPIII Microbial Identification Test, [...] last revised on 2020. Testing performed by: [facility], [address] [place] [address]., [address] Vaginal 11/15/2024 3:37 PM 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 11/16/2024 1:52 PM 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 India Contreras DO LAB MICROBIOLOGY - GENE RAL ORDERABLES Final Result BENJAMIN [address] [address] [place] [address] from Last 3 Months Insurance MEDICARE [facility] MEDICARE MEDICARE ANTH ACCESS CHOICE ANTH ACCESS MEDICARE [facility] FEDERAL Advance Directives For more information, please contact: [phone] * Full Code (Latest Code Status on [...] 11:35 PM 02/20/2021 8:13 PM Care Teams Fisher Eel Relationship Specialty Start Date End Date Ashlee Doyle MD [address] [place] [address] PCP - General Internal Medicine 09/05/23 Miscellaneous, Not In File 03/24/21 Sheryl Latham MD Medical Oncologist/Supervisor [employer] Medical Oncology 05/12/21 Jonh Junior MD [address] [place] [address] Referring Physician Cardiology 09/05/23
--- OUTSIDE RECORDS SUMMARY | 2025-01-15 14:06 | XMS_ITS | Encounter Summary ---
Author Organization [facility] Address [address] [place] [address] Care Team Providers Care Informatics Manager Name Role Phone Olivia Foss MD Primary Care Provider Unavailable Encounter Details Date Type Department Care Team (Late st Contact Info) Description 04/09/2019 Lab Requisition [facility] Care DermPath Lab [address] [facility], [place] [address] Olivia Fernandez MD [address] [facility] 3 [place] [address] Social History Tobacco Use Types Packs/Day Years Used Date Smoking Tobacco: Never Assessed Comments Unknown Sex and Gender Information Value Date Recorded Sex Assigned at Not on file Legal Sex Female 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 Gender Identity Not on file Sexual Orientation Not on file documented as of this encounter Plan of Treatment Not on file documented as of this encounter Procedures Procedure Name Priority Date/Time Associated Diagnosis Comments DERMATOPATHOLOGY Routine 04/06/2019 12:0 0 AM CDT documented in this encounter Results * DERMATOPATHOLOGY (04/06/2019 12:00 AM CDT) Case Report Dermatopathology Report Case: [id number] Authorizing Provider: Olivia Fernandez MD Collected: 04/06/2019 12:00 AM Pathologist: Oanh Agrawal MD Received: 04/09/2019 06:40 AM Specimen: Skin, left fa 9 3:47 PM CDT DERMATOPATHOLOGY LABORATORY Final Diagnosis Specimen A. 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 Previous Bx: [id number]. 3:47 PM CDT DERMATOPATHOLOGY LABORATORY Gross Description Specimen A: Received is one formalin filled container labeled with the patient's name and designated left fa. The specimen consists of a non-oriented ellipse of skin measuring [id number]. The epidermal surface is unremarkable. The margin [...] characteristic determined by the Dermatopathology Laboratory at [facility], directed by Dr. Kwame Agrawal. These tests need not be, and therefore are not, approved by the [place] Food and Drug Administration. The tests are used for clinical purposes. Billing Codes Specimen Charges Stain Charges 48290 1 3:47 PM CDT DERMATOPATHOLOGY LABORATORY Embedded Images 3:47 PM CDT DERMATOPATHOLOGY LABORATORY Pathology/Cytolog y TISSUE SPECIMEN FROM SKIN / Unknown 04/06/2019 04/09/2019 6:40 AM CDT Olivia Fernandez MD LAB - PATHOLOGY/CYTOLOGY OR DERABLES Final Result DERMATOPATHOLOGY LABORATORY [facility] - Department of Dermatology [address] [facility], 5th [place] [address], [facility] [phone] documented in this encounter Visit Diagnoses Not on filedocumented in this encounter Care Teams Informatics Manager Relationship Specialty Start Date End Date Olivia Foss MD PCP - General 02/05/19 documented as of this encounter
--- OUTSIDE RECORDS SUMMARY | 2025-01-15 14:06 | XMS_ITS | Encounter Summary ---
Author Organization [facility] Address [address] [facility] [place] [address] Care Team Providers Care Chuck Splitter Name Role Phone Olivia Foss MD Primary Care Provider Unavailable Encounter Details Date Type Department Care Team (Late st Contact Info) Description 02/07/2019 Lab Requisition [facility] Care DermPath Lab [address] [facility] [place] [address] Olivia Fernandez MD [address] [facility] 3 [place] [address] Social History Tobacco Use Types Packs/Day Years Used Date Smoking Tobacco: Never Assessed Comments Unknown Sex and Gender Information Value Date Recorded Sex Assigned at Not on file Legal Sex Female 6:20 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 Gender Identity Not on file Sexual Orientation Not on file documented as of this encounter Plan of Treatment Not on file documented as of this encounter Procedures Procedure Name Priority Date/Time Associated Diagnosis Comments DERMATOPATHOLOGY Routine 02/05/2019 12:0 0 AM CDT documented in this encounter Results * DERMATOPATHOLOGY (02/05/2019 12:00 AM CDT) Case Report Dermatopathology Report Case: [id number] Authorizing Provider: Olivia Fernandez MD Collected: 02/05/2019 12:00 AM Pathologist: Oanh Agrawal MD Received: 02/07/2019 08:16 AM Specimens: A) - Skin, right thigh B) - Skin, left FA 9 10:54 AM CDT DERMATOPATHOLOGY LABORATORY Final Diagnosis Specimen A. SKIN, right thigh: INTRADERMAL MELANOCYTIC NEVUS (D22.71) Specimen B. 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 B: R/O SCC, non-healing. 10:54 AM [facility] DERMATOPATHOLOGY LABORATORY Gross Description Specimen A: Received is one formalin filled container labeled with the patient's name and designated right thigh. The specimen consists of a shave measuring [id number]. Jar 0. Specimen B: Received is one formalin filled container labeled with the patient's name and designated left FA. The specimen consists of a shave (2 pieces) measuring 11s0x9qo & 3q4l5ju. Jar 0. 10:54 AM [facility] DERMATOPATHOLOGY LABORATORY Microscopic Description Specimen A. SKIN, right thigh: There are nests of cytologically bland melanocytes within the dermis that mature with depth. Specimen B. SKIN, left FA: The epidermis shows parakeratosis, full thickness disorderly maturation of keratinocytes, mitoses at different levels, and dyskeratotic cells. This lesion is present at the margin of the specimen. 10:54 AM [facility] DERMATOPATHOLOGY LABORATORY Disclaimer An external and internal positive and negative controls are appropriate for the histochemical, immunohistochemical and immunofluorescence stain(s) in this case (if any), except where stated explicitly. The performance characteristics of the stain(s) cited in this report were developed and its performance characteristic determined by the Dermatopathology Laboratory at [facility], directed by Dr. Kwame Agrawal. These tests need not be, and therefore are not, approved by the [place] Food and Drug Administration. The tests are used for clinical purposes. Billing Codes Specimen Charges Stain Charges 99242 03877 1 1 9 10:54 AM T DERMATOPATHOLOGY LABORATORY Embedded Images 10:54 AM [facility] DERMATOPATHOLOGY LABORATORY Pathology/Cytology TISSUE SPECIMEN FROM SKIN / Unknown 02/05/2019 02/07/2019 8:16 AM CDT Miscellaneous samples (specimen) TISSUE SPECIMEN FROM SKIN / Unknown 02/05/2019 02/07/2019 8:16 AM CDT Olivia Fernandez MD LAB - PATHOLOGY/CYTOLOGY OR DERABLES Final Result DERMATOPATHOLOGY LABORATORY [facility] - Department of Dermatology [address] [place] [address], 5th [place] [address], [facility] [phone] documented in this encounter Visit Diagnoses Not on filedocumented in this encounter Care Teams Chuck Splitter Relationship Specialty Start Date End Date Olivia Foss MD PCP - General 02/05/19 documented as of this encounter
--- OUTSIDE RECORDS SUMMARY | 2025-01-15 14:06 | XMS_ITS | Encounter Summary ---
Author Organization [facility] Address [address] [place] [address] Care Team Providers Care Juice Tester Name Role Phone Olivia Foss MD Primary Care Provider Unavailable Encounter Details Date Type Department Care Team (Late st Contact Info) Description 02/19/2020 Lab Requisition [facility] [address] [place] [address] Yumiko Dykes MD [address] [facility] [address] [place] [address] Social History Tobacco Use Types Packs/Day Years Used Date Smoking Tobacco: Never Assessed Comments Unknown Sex and Gender Information Value Date Recorded Sex Assigned at Not on file 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 Gender Identity Not on file Sexual Orientation Not on file documented as of this encounter Plan of Treatment Not on file documented as of this encounter Procedures Procedure Name Priority Date/Time Associated Diagnosis Comments DERMATOPATHOLOGY Routine 02/18/2020 12:0 0 AM CDT documented in this encounter Results * DERMATOPATHOLOGY (02/18/2020 12:00 AM CDT) Case Report Dermatopathology Report Case: [id number] Authorizing Provider: Yumiko Dykes MD Collected: 02/18/2020 12:00 AM Ordering Location: [facility] Received: 02/19/2020 08:29 AM Pathologist: [...] specimen consists of a shave biopsy measuring [id number], bisected. Jar 0+. 0 2:31 PM CDT [...] characteristic determined by the Dermatopathology Laboratory at [facility], directed by Dr. Kwame Agrawal. These tests need not be, and therefore are not, approved by the [place] Food and Drug Administration. The tests are used for clinical purposes. Billing Codes Specimen Charges Stain Charges 87353 1 0 2:31 PM CDT DERMATOPATHOLOGY LABORATORY Embedded Images 0 2:31 PM CDT DERMATOPATHOLOGY LABORATORY Pathology/Cytolog y TISSUE SPECIMEN FROM SKIN / Unknown 02/18/2020 02/19/2020 8:29 AM CDT us Yumiko Dykes MD LAB - PATHOLOGY/CYTOLOGY ORD ERABLES Final Result DERMATOPATHOLOGY LABORATORY [facility] - Department of Dermatology [facility]/[address] [address], [facility] [phone] documented in this encounter Visit Diagnoses Not on filedocumented in this encounter Care Teams Juice Tester Relationship Specialty Start Date End Date Olivia Foss MD PCP - General 02/05/19 documented as of this encounter
--- OUTSIDE RECORDS SUMMARY | 2025-01-15 14:06 | XMS_ITS | Clinical Summary ---
Author Organization [facility] Address [address] [place] [address] Care Team Providers Care Blister Packaging Machine Operator Name Role Phone Olivia Foss MD Primary Care Provider Unavailable Source Comments [facility],non-owned Affiliates and Associated Physician Practices is amultiple site organization consisting of ambulatory clinics and hospital sitesin [place], [place], [place] and [place]. This disclosure is being madepursuant to the Care Everywhere program and may not contain all information available regarding this patient. 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
--- OUTSIDE RECORDS SUMMARY | 2025-01-15 14:06 | XMS_ITS | Clinical Summary ---
Author Organization [facility] Address [address] [place] [address] Care Team Providers Care Fire Prevention Engineer Name Role Phone Ashlee Doyle MD Primary Care Provider [phone] Melvin Pedraza MD Unavailable Allergies Active Allergy [...] exertion 06/06/2018 Coronary artery disease invo lving [place] coronary artery of [place] heart without angina pectoris 06/06/2018 Carotid bruit 06/06/2018 Carotid artery stenosis 08/29/2017 Osteoarthrosis 05/10/2017 Left bundle branch block 05/10/2017 Partial seizure with impaire d consciousness ([facility]) 06/21/2016 Overview (02/25/2021): Partial seizure with impaired consciousness Transient cerebral ischemia 05/04/2016 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 Immunizations Immunization Administration Dates Next Due Fluzone High Dose - >Age 65 (Prefilled Syringe) 06/04/2017,05/21/2016,06/06/2015 Hepatitis A (Generic) 01/30/2008,01/30/2008,05/20 Hepatitis B (Generic: Adult) 01/30/2008,07/07/20 07,06/05/2007 Pneumococcal (Pneumovax 23) 05/21/2009, 9 Pneumococcal (Prevnar 13) 02/20/2015 Shingrix 03/29/2019 Td 06/19/2016 Tdap (Generic) 11/10/2012 Zoster (Zostavax) 08159 Unt/0.65Ml 03/29,09/21/2018,09/19/2013,2009 Family History Medical History Relation [...] on file Legal Sex Female 1:30 PM 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 Gender Identity Not on file Sexual Orientation Not on file Last Filed Vital Signs Vital Sign Reading Time Taken Comments Blood Pressure 140/62 08/21/2020 1:18 PM 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 Pulse 97 08/21/2020 1:18 PM 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 Temperature - - Respiratory Rate - - Oxygen Saturation - - Inhaled Oxygen Concentration - - Weight 67.5 kg (148 lb 12.8 oz) 08/21/2020 1:18 PM 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 Height 165.1 cm (5' 5 ) 08/21/2020 1:18 PM 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 Body Mass Index 24.76 08/21/2020 1:18 PM 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 Plan of Treatment Health Maintenance Due Date [...] age to complete this topic Insurance MEDICARE [facility] MEDICARE [facility] Care Teams Fire Prevention Engineer Relationship Specialty Start Date End Date Ashlee Doyle MD PCP - General INTERNAL MEDICINE 02/18/20 Melvin Pedraza MD [address] [address] Referring Physician VASCULAR SURGERY 02/18/20
--- OUTSIDE RECORDS SUMMARY | 2025-01-15 14:06 | XMS_ITS | Encounter Summary ---
Author Organization [facility] Address [address] [place] [address] Care Team Providers Care Ict Teacher Name Role Phone Ashlee Doyle MD Primary Care Provider [phone] Randi Barney MD Unavailable Miscellaneous, Not In File Unavailable Unava ilable Sheryl Latham MD Unavailable Jonh Junior MD Primary Care Provide r Ashlee Doyle MD Primary Care Provider [phone] Jonh Junior MD Unavailable Encounter Details Date Type Department Care Team (Late st Contact Info) Description 03/31/2021 Telephone [facility] [address] [place] [address] Kindra Mir, RT Social History Tobacco Use Types Packs/Day Years Used Date Smoking Tobacco: Never Smokeless Tobacco: Never Alcohol Use Standard Drinks/Week Comments Yes 0 (1 standard drink = 0.6 oz pur e alcohol) Comments No Sex and Gender Information Value Date Recorded Sex Assigned at Not on file 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 Gender Identity Not on file Sexual Orientation [...] documented as of this encounter Care Teams Ict Teacher Relationship Specialty Start Date End Date Ashlee Doyle MD [address] [place] [address] PCP - General 02/09/18 08/24/23 Jonh Junior MD PCP - General Cardiology 08/25/23 09/04/23 Ashlee Doyle MD [address] [place] [address] PCP - General Internal Medicine 09/05/23 Randi Barney MD [address] [place] [address] Referring Physician Cardiology 03/12/21 08/24/23 Miscellaneous, Not In File 03/24/21 Sheryl Latham MD 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
[2025-01-15 16:23] VITALS: BP 155/55; PULSE 79; RESP 16; O2SAT 100
[2025-01-15] MEDS: ACETAMINOPHEN 325 MG TABLET 650 MG PO (16:31)
--- NOTE | 2025-01-15 16:41 | PC.NURSE ---
Dr. Junior at bedside updating pt.
--- NOTE | 2025-01-15 16:47 | ED.GENADULT ---
HPI - General Adult General Chief complaint: Back Pain/Injury Stated complaint: Lower back pain-denies Urinary issues Time Seen by Provider: 01/15/25 12:54 History of Present Illness HPI narrative: 89-year-old female presents to the emergency department for evaluation for lower back pain. Patient states few weeks ago she was having left hip and lower back pain that since improved and is now radiating from her lower back into her right hip. Patient denies any specific incident of fall or injury. Related Data Home Medications ?Medication ?Instructions ?Recorded ?Confirmed ?Last Taken ?Type acetaminophen 500 mg tablet 1,000 mg PO TID PRN Pain (Scale 10/21/23 01/10/25 Unknown History Score 1-3) amiodarone 200 mg tablet 100 mg PO DAILY 10/21/23 01/10/25 Unknown History apixaban 2.5 mg tablet (Eliquis) 2.5 mg PO Q12H 10/21/23 01/10/25 Unknown History fluticasone propionate 50 1 spray intranasal DAILY 10/21/23 01/10/25 Unknown History mcg/actuation nasal spray,suspension hydrocortisone 2.5 % topical cream 1 applic RECTAL DAILY PRN 10/21/23 01/10/25 Unknown History with perineal applicator Hemorrhoids melatonin 3 mg tablet 3 mg PO HS PRN Insomnia 10/21/23 01/10/25 Unknown History polysaccharide iron complex 150 mg 150 mg PO EVERY OTHER DAY 10/21/23 01/10/25 Unknown History iron capsule rosuvastatin 5 mg tablet 5 mg PO DAILY 10/21/23 01/10/25 Unknown History sucralfate 1 gram tablet 1 g PO TIDWM PRN stomach pain 10/21/23 01/10/25 Unknown History timolol 0.25 % eye drops 1 drp EACH EYE Q12H 10/21/23 01/10/25 Unknown History omeprazole 20 mg capsule,delayed 20 mg PO DAILY 04/02/24 01/10/25 Unknown History release Allergies Allergy/AdvReac Type Severity Reaction Status Date / Time Sulfa (Sulfonamide Allergy Severe Swelling Verified 01/10/25 09:34 Antibiotics) of Lip/Tongue/Throat Review of Systems Review of Systems: All systems reviewed & are unremarkable except as noted in HPI and below PMFSH Past Medical History Medical History Heart failure with mid-range ejection fraction Echocardiogram in October 2023 showed mildly reduced LV systolic function with an EF of 45 to 50% and grade 1 diastolic dysfunction. Transient ischemic attack Chronic anticoagulation Paroxysmal atrial fibrillation Left bundle branch block Hyperlipidemia Hypertension Lymphoma (2020) Surgical History Surgical History History of lymph node biopsy Family History Family History (Updated 01/10/25 @ 10:45 by Sarai Han CMA) Sibling Cerebrovascular accident Social History Social History (Updated 01/10/25 @ 10:41 by Yesica Torres CMA) Social History: Surrogate medical decision maker: Annemarie Ortiz, granddaughter. Code status: Full code. Smoking status: Never smoker Alcohol intake: never Substance use: never Substance use type: does not use Do You Feel Safe in your Home?: Yes Lack of Transportation: No Lack of Food: Never True Current Housing: I Have Housing Concerned About Future Housing: No Difficulty Paying Gas/Electric Bills: No Difficulty Paying for Meds: No Currently Unemployed: No Education: Bachelor's Degree Difficulty w/ Childcare or Family Care: Decline to Answer Spiritual care concerns: No Exam Narrative: APPEARANCE: Well appearing, no pain, no distress, well-nourished. HEAD: normocephalic, atraumatic. EYES: PERRLA/EOMI, conjunctivae clear. NOSE: Normal no drainage EARS:TMS clear with good light reflex. THROAT: Pharynx clear, no exudate. NECK: Supple. No adenopathy, no masses. RESPIRATORY: Airway patent, respirations nonlabored. Clear to auscultation bilaterally, no rales, rhonchi, wheezing. CARDIOVASCULAR: Regular rate and rhythm without murmurs rubs or gallops. ABDOMINAL: Soft, nontender, nondistended, normal bowel sounds MUSCULOSKELETAL: Mild lower back tenderness to palpation NEURO: Alert. Cranial nerves II through XII intact. Good gait. Good coordination SKIN: Warm, dry. Normal Color Course Vital Signs Vital signs: Vital Signs Temperature 97.4 F L 01/15/25 12:20 Pulse Rate 80 01/15/25 12:20 Respiratory Rate 18 01/15/25 12:20 Blood Pressure 136/41 L 01/15/25 12:20 Pulse Oximetry 98 01/15/25 12:20 Oxygen Delivery Room Air 01/15/25 12:20 Temperature 97.4 F L 01/15/25 12:20 Pulse Rate 79 01/15/25 16:23 Respiratory Rate 16 01/15/25 16:23 Blood Pressure 155/55 H 01/15/25 16:23 Pulse Oximetry 100 01/15/25 16:23 Oxygen Delivery Room Air 01/15/25 12:20 Medical Decision Making MDM Narrative Medical decision making narrative: 89-year-old female presents to the emergency department for evaluation for lower back pain and hip pain. Patient's initial x-ray was concern for possible pelvic fracture. CT scan showed no evidence of fracture. Patient was offered stronger pain medication and Flexeril for muscle spasm but patient declined these and prefers to do Tylenol for pain control. Patient is well-appearing at time of discharge. Patient does prefer to attempt to use a walker rather than her cane. Patient will have close follow-up with her primary care physician. Differential Diagnosis Differential Diagnosis: Hip fracture, sciatica, lower back fracture, pelvic fracture Vital Signs Vital Signs: Vital Signs Temperature 97.4 F L 01/15/25 12:20 Pulse Rate 80 01/15/25 12:20 Respiratory Rate 18 01/15/25 12:20 Blood Pressure 136/41 L 01/15/25 12:20 Pulse Oximetry 98 01/15/25 12:20 Oxygen Delivery Room Air 01/15/25 12:20 Temperature 97.4 F L 01/15/25 12:20 Pulse Rate 79 01/15/25 16:23 Respiratory Rate 16 01/15/25 16:23 Blood Pressure 155/55 H 01/15/25 16:23 Pulse Oximetry 100 01/15/25 16:23 Oxygen Delivery Room Air 01/15/25 12:20 Imaging Data Radiologist's impression: Impressions Hip/Pelvis X-Ray 01/15/25 13:17 IMPRESSION: Possible healing fracture in the right pubic bone. 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 Lumbar Spine X-Ray 01/15/25 13:19 IMPRESSION: 1. 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 Pelvis CT 01/15/25 15:22 IMPRESSION: No displaced fracture deformity is appreciated within the right pubic bone. Findings consistent with osteitis pubis, as detailed above Discharge Plan Discharge Clinical Impression: Low back pain, Sciatica Patient Disposition: Home Condition: Stable Instructions: Antibiotic Form, Acute Low Back Pain (ED) Additional Instructions: Tylenol for pain control. Have close follow-up with your primary care physician. If you have any worsening symptoms then please call or return to the emergency department. Patient Language: Slovenian Prescriptions: New (DME) annalisa Misc See Rx Instructions .Route Qty: 1 0RF Rx Instructions: As directed No Action prednisone 10 mg tablet 10 mg PO BID 10 Days Qty: 20 0RF amiodarone 200 mg tablet 100 mg PO DAILY sucralfate 1 gram tablet 1 g PO TIDWM PRN (Reason: stomach pain) polysaccharide iron complex 150 mg iron capsule 150 mg PO EVERY OTHER DAY melatonin 3 mg Tablet 3 mg PO HS PRN (Reason: Insomnia) acetaminophen 500 mg Tablet 1,000 mg PO TID PRN (Reason: Pain (Scale Score 1-3)) hydrocortisone 2.5 % Cream With Perineal Applicator 1 applic RECTAL DAILY PRN (Reason: Hemorrhoids) timolol 0.25 % Drops 1 drp EACH EYE Q12H fluticasone propionate 50 mcg/actuation [place],Suspension 1 spray INTRANASAL DAILY Rx Instructions: administer into each nostril rosuvastatin 5 mg tablet 5 mg PO DAILY Eliquis 2.5 mg tablet 2.5 mg PO Q12H spironolactone 25 mg Tablet 25 mg PO QAM Qty: 30 0RF omeprazole 20 mg capsule,delayed release(DR/EC) 20 mg PO DAILY guaifenesin [Mucus Relief ER] 600 mg Tablet Extended Release 12hr 600 mg PO Q12HR Qty: 60 0RF albuterol sulfate 90 mcg/actuation HFA aerosol inhaler 1 inh inhalation QID PRN (Reason: shortness of breath or wheezing) Qty: 8.5 0RF Follow-up/Referrals: Yanira,MD Ashlee [Primary Care Provider] -
== END 2025-01-15 17:14 | disposition home or self-care (01) ==
PROVIDERS: Emergency Provider Emergency Medicine; PCP Internal Medicine
DX: M54.42 Lumbago with sciatica, left side (principal); I11.0 Hypertensive heart disease with heart failure; I50.9 Heart failure, unspecified; Z79.01 Long term (current) use of anticoagulants; I48.91 Unspecified atrial fibrillation; E78.5 Hyperlipidemia, unspecified
CPT/HCPCS: 72100; 72192; 73521; 99284; A9270

== ENCOUNTER 2025-01-21 12:04 | Emergency (ER) | payer MEDICARE, BC, SELFPAY ==
[2025-01-21 12:05] VITALS: BP 149/42; PULSE 73; RESP 17; TEMP 36.4; O2SAT 100
--- OUTSIDE RECORDS SUMMARY | 2025-01-21 12:35 | XMS_ITS | Data Portability ---
Author Organization [place] - [facility] [employer] Main Office Address [address] [place] [address] Care Team Providers Care Systems Software Engineer Name Role Phone LD REYNOSO Primary Care Provider LD REYNOSO Referring Provider [phone] Assessment Encounter Date Assessment Date Assessment LastModified [...] This note is dictated and transcribed by [employer]. [employer] Worker variances may occur. Despite proofreading, typographical errors may occur. Occasional wrong-word or 'ttsqp-t-eaii' substitutions may have occurred due to the [...] DO Not Attach Compendium, Do Not Delete/merge, [id number] 11/20/2024 10:34:42 injection /aspirati on joint/bur sa (PROC) 2023 024 [email or web address] In-Office Order, Internal Use Only DO Not Attach Compendium DO Not Attach Compendium, Do Not Delete/merge, [id number] 08/21/2024 10:41:24 injection /aspirati on joint/bur sa (PROC) 2023 024 [email or web address] In-Office Order, Internal Use Only DO Not Attach Compendium DO Not Attach Compendium, Do Not Delete/merge, [id number] 05/15/2024 10:22:55 injection /aspirati on joint/bur sa (PROC) 2023 024 [email or web address] In-Office Order, Internal Use Only DO Not Attach Compendium DO Not Attach Compendium, Do Not Delete/merge, [id number] 02/07/2024 10:36:14 Surgeries None recorded. Imaging None recorded. Medication Orders bupivacai ne HCl 0.5 % (5 mg/mL) injection solution 2024 025 [email or web address] [facility] [address], [address], 11/20/2024 11:16:59 Kenalog 10 mg/mL suspensio n for injection 2024 025 [email or web address] [facility] [address], [address], 11/20/2024 11:16:59 bupivacai ne HCl 0.5 % (5 mg/mL) injection solution 2023 024 [email or web address] [facility] [address], [address], 08/21/2024 11:04:45 triamcino lone acetonide 40 mg/mL suspensio n for injection 2023 024 [email or web address] [facility] [address], [address], 08/21/2024 11:04:45 Kenalog 10 mg/mL suspensio n for injection 2023 024 [email or web address] [facility] [address], [address], 08/21/2024 10:37:03 Marcaine (PF) 0.5 % (5 mg/mL) injection solution 2023 024 [email or web address] [facility] [address], [address], 08/21/2024 10:37:25 bupivacai ne HCl 0.5 % (5 mg/mL) injection solution 2023 024 [email or web address] [facility] [address], [address], 08/21/2024 10:36:18 Kenalog 10 mg/mL suspensio n for injection 2023 024 [email or web address] [facility] [address], [address], 08/21/2024 10:37:03 Patient TargetsNo targets recorded. Patient InstructionsNo instructions recorded. Reason for Referral None Reported. Problems Name Problem SNOMED Code Status Onset Date Resolution Date Notes Provider Name and Address Organization Details Recorded Time Bilateral osteoarth ritis of knees 77255747760 9107 Active 2021 Not Available [facility] 3 20:02:36 Hammer toe 799387668 Active 2017 Not Available [employer] 3 20:02:36 Heartburn 86462221 Active 2017 Not Available [facility] 3 20:02:36 Foot callus 898576828 Active 2020 Not Available [facility] 3 20:02:36 Injury of great toenail 921263670 Active 2018 Not Available [facility] 3 20:02:36 Unable to cut own toenails 841587781 Active 2020 Not Available [facility] 3 20:02:36 Arthritis 6324993 Active 2017 Not Available [facility] 3 20:02:37 Migraine 92927669 Active 2017 Not Available [facility] 3 20:02:37 Porokerat osis 348753503 Active 2020 Not Available [facility] 3 20:02:37 Onychomyc osis of toenails 010884087 Completed 201712/24/2020 Not Available [facility] 3 20:02:37 Bunion 972072939 Active 2017 Not Available [facility] 3 20:02:37 Pain of right knee joint 21656363248 4100 Active 2021 Not Available [facility] 3 20:02:37 Pain of left knee joint 35610343135 4107 Active 2022 Not Available [facility] 3 20:02:37 Pain of bilateral knee joints 83829977513 4104 Active 2022 Not Available [facility] 3 20:02:37 Dystrophi a unguium 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 2020 Not Available [facility] 3 20:02:38 Osteoarth ritis 830455346 Active 2022 EUFEMIA [place], [place] [employer] [facility] [employer] [facility] 3 10:30:33 Pain of left shoulder joint 65072591591 833171 Active 2022 Gena Esquivel null, [employer] [facility] [employer] [facility] 3 10:52:50 Tendiniti s of left rotator cuff 92111195354 388605 Active 2022 Hipolito Palm MD [address], [address], [place], [address] , [employer] [facility] [employer] [facility] 3 10:57:44 Pain in both feet 94609282467 812467 Active 2023 Nadeem Blair DPM [address], [address], [place], [address] , [facility] [employer] [facility] [employer] [facility] 4 09:12:06 Hammer toe 499547198 Active 2023 Nadeem Blair DPM [address], [address], [place], [address] , [employer] 4 19:15:41 Pain in toe 763144040 Active 2023 Nadeem Blair DPM [address], [address], [place], [address] , [employer] 4 19:16:13 Callosity on toe 315713666 Active 2024 Nadeem Blair DPM [address], [address], [place], [address] , [employer] 5 12:47:13 Notes:allergies, eye problem s, wears glasses, vision problems, ringing in ears Problem Notes None recorded. Procedures Surgical History Date Name Laterality Status Provider Name and Address Organization Details Recorded Time 5 Nail Debridement completed Nadeem Blari DPM [address], [address], [place], [address], [employer] 12/11/2024 12:47:06 5 Callus Debridement 2-4 completed Nadeem Blair DPM [address], [address], [place], [address], [employer] 12/11/2024 12:46:57 4 Nail Debridement completed Nadeem Blair DPM [address], [address], [place], [address], [employer] 01/17/2024 19:14:53 4 Callus Debridement 2-4 completed Nadeem Blair DPM [address], [address], [place], [address], [employer] 01/17/2024 19:14:40 4 Nail Debridement completed Nademe Blair DPM [address], [address], [place], [address], [employer] 10/06/2023 12:01:21 4 Callus Debridement 2-4 completed Nadeem Blair DPM [address], [address], [place], [address], [facility] 10/06/2023 12:01:14 3 Ortho - Cortisone Injection completed Hipolito Palm MD [address], [address], [place], [address], [facility] 04/26/2023 10:49:51 3 Ortho - Cortisone Injection completed Hipolito Palm MD [address], [address], [place], [address], [facility] 01/18/2023 10:57:27 Imaging Results None recorded. Procedure Notes None recorded. Medical Equipment None Reported. Allergies Allergen ID Allergen Name Allergen Category Reaction Reaction Severity Criticality Documentation Date Start Date Code Code System Note Provider Name and Address Organization Details Recorded Time 87066 sulfur dioxide medicatio n facial swelling Not available Not available 11/17/2022 21578 79 RxNorm Not Available [facility] 3 20:04:47 Medications Name Sig [...] 40 mg by injection route. 2024 active [facility]: 0003- 0494- 20 Not Available [...] 40 mg by injection route. 08/02 completed [facility] 38703 -064- 01 Not Available Not Available Not [...] Updated DateTime 02/07/2024 165.1 cm 20 kg/m2 07376.08 g [employer] 02/07/2024 10:34:41 Date Recorded Body height Provider Name an d Address Organization Details Last Updated DateTime 05/15/2024 165.1 cm Gena Sierra [employer] 05/15/2024 10:21:11 Date Recorded Body height Body mass index (BMI) Body weight Provider Name and Address Organization Details Last Updated DateTime 08/21/2024 165.1 cm 19.5 kg/m2 91765.31 g Aurora Rucker CNA [employer] 08/21/2024 10:35:03 Date Recorded Body height Body mass index (BMI) Body weight Provider Name and Address Organization Details Last Updated DateTime 11/20/2024 167.64 cm 19.4 kg/m2 81218.08 g Aurora Rucker CNA [employer] 11/20/2024 10:32:52 Date Recorded Body height Body mass index (BMI) Body weight Heart rate Respiratory rate Oxygen saturation Oxygen saturation in Arterial blood by Pulse oximetry Systolic blood pressure Diastolic blood pressure Provider Name and Address Organization Details Last Updated DateTime 167.64 cm 19.4 kg/m2 46792.0 8 g 77 /min 14 /min 97 % 97 % 103 mm[Hg] 57 mm[Hg] Kristy Rilye [employer] 11:43:01 Social History Question Answer Notes LastModified by Organizat ion Details LastModified Time Tobacco Smoking Status Never Smoker Not Available [employer] 11/17/2022 20:01:47 What Is Your Level Of Alcohol Consumption? None [id number] Information not available 11/17/2022 Sex: Unknown Functional Status None recorded. Mental Status None recorded. Family History Relationship Description Onset Age of this Age Resolved Age Notes LastModified by Organization Details LastModified Time Mother Heart disease [id number] Not available 11/17/2022 20:01:48 Daughter Diabetes mellitus [...] SNOMED-CT Code Diagnosis ICD10 Code Diagnosis Note [id number] MASHA [facility] [place] [address] [address] 12/24/2020 00:00:00 12/24/2020 12:30:59 [id number] MASHA [facility] [place] [address] [address] 01/22/2021 00:00:00 01/22/2021 14:39:24 [id number] [facility] [place] [address] [place] [address] 06/09/2021 00:00:00 06/09/2021 15:44:55 [id number] [facility]em Blair [facility] [address] [place] [address] 09/08/2021 00:00:00 09/09/2021 14:14:15 [id number] [facility]adeem Blair [facility] [address] [place] [address] 12/01/2021 00:00:00 12/07/2021 09:22:09 [id number] [facility]adeem Blair [facility] [address] [place] [place] [address] 03/11/2022 00:00:00 03/11/2022 15:00:59 [id number] Hipolito Palm MD [facility] [address] [address] 06/15/2022 00:00:00 06/15/2022 10:48:18 [id number] [facility]adeem Blair DPM [facility] [address] [place] [address] 06/21/2022 00:00:00 06/21/2022 11:25:00 [id number] Hipolito Palm MD A[facility] [address] [address] 07/27/2022 00:00:00 07/27/2022 10:58:30 [id number] Hipolito Palm MD [facility] [address] [address] 10/19/2022 00:00:00 10/19/2022 11:23:43 [id number] Nadeem Blair DPM [facility] [address] [address] 11/04/2022 00:00:00 11/04/2022 13:12:01 [id number] Hipolito Palm MD [address] [address] 01/18/2023 10:25:40 01/18/2023 11:47:03 Osteoarthritis 010782792 M17.0 Pain of le ft shoulder joint 8728146751 5083543 M25.512 Bilateral osteoarthritis of knees 7712619180 82114 M17.0 Tendinitis of left rotator cuff 0435476624 0923298 M67.814 [id number] Hipolito Palm MD [address] [address] 04/26/2023 10:29:26 04/26/2023 10:54:17 Osteoarthritis 468934344 M17.0 Pain of le ft shoulder joint 6668392338 9784984 M25.512 Bilateral osteoarthritis of knees 2967677304 26316 M17.0 Tendinitis of left rotator cuff 2537922093 6213513 M67.500 [id number] Pacheco Williamson MD [address] [address] 08/02/2023 10:16:49 08/02/2023 11:03:26 Bilateral osteoarthritis of knees 7274779973 77233 M17.0 Pain of bi lateral knee joints 5553624649 71736 M25.561 M25.085 [id number] Nadeem Blair DPM [facility] [place] [address] [address] 10/06/2023 11:40:05 10/17/2023 09:32:53 Dystrophia unguium 09773755 L60.3 Nails debrided without incidentFo llow-up 3 months as needed Foot callus 078780421 L8 4 Debrided without incidentRe commend use of pumice stoneOfflo ading with supportive shoe gear to prevent wounds infectionF ollow-up in 3 months as needed Pain in both feet 968976 0219 2683878 M79.671 M79.672 Secondary to above [id number] Jude Leos MD [address] [address] 11/08/2023 10:33:08 11/08/2023 11:16:24 Bilateral osteoarthritis of knees 0090371314 89545 M17.0 Pain of bi lateral knee joints 6442946350 49774 M25.561 M25.010 [id number] Nadeem Blair DPM [facility] [place] [address] [place] [address] 01/05/2024 11:30:28 01/18/2024 13:00:27 Hammer toe 729459731 M20.40 continue conservati ve offloading recommend silicone offloading sleeves and wide soft toe box shoe gear Foot callus 541077435 L8 4 Debrided without incidentRe commend use of pumice stoneOfflo ading with supportive shoe gear to prevent wounds infectionF ollow-up in 3 months as needed Dystrophia unguium 43204 009 L60.3 Nails debrided without incidentFo llow-up 3 months as needed Pain in toe 434875216 M7 9.676 secondary to above [id number] Jude Leos MD [facility] [address] 02/07/2024 10:32:03 02/07/2024 10:48:39 Bilateral osteoarthritis of knees 2521781896 50066 M17.0 Pain of bi lateral knee joints 1695960357 99974 M25.561 M25.803 [id number] Jude Leos MD [facility] [address] 05/15/2024 10:17:20 05/15/2024 10:45:39 Bilateral osteoarthritis of knees 0736825616 09402 M17.0 Pain of bi lateral knee joints 5964909901 72493 M25.561 M25.660 [id number] Jude Leos MD [facility] [address] 08/21/2024 10:09:13 08/21/2024 10:50:56 Bilateral osteoarthritis of knees 5107242580 70247 M17.0 Pain of bi lateral knee joints 3966879826 88966 M25.561 M25.997 [id number] Jude Leos MD [facility] [place] [address] [place] [address] 11/20/2024 10:24:01 11/20/2024 10:47:35 Bilateral osteoarthritis of knees 3268863906 80926 M17.0 Pain of bi lateral knee joints 7946986811 42730 M25.561 M25.719 [id number] Nadeem Blair DPM [facility] [address] [place] [address] 12/11/2024 11:35:22 12/11/2024 12:53:03 Dystrophia unguium 81253989 L60.3 Nails debrided without incidentFo llow-up 3 months as needed Pain in toe 909333966 M7 9.676 secondary to above Unable to cut own toenails 851697756 Z74.1 Callosity on toe 6370233 01 L84 debrided bilateral great toes- calluses [...] Name 02/07/2024 1 [place] Agustina Cordova [id number] 1 [id number] Agustina Cordova 02/07/2024 2 [place] 104 Agustina Cordova [id number] Agustina Cordova 05/15/2024 1 [place] Agustina Cordova [id number] 1 [id number] Agustina Cordova 05/15/2024 2 [place] 104 Agustina Cordova [id number] Agustina Cordova 08/21/2024 1 [place] Agustina Cordova [id number] 1 [id number] Agustina Cordova 08/21/2024 2 [place] 104 Agustina Cordova [id number] Agustina Cordova 11/20/2024 1 [place] Agustina Cordova [id number] 1 [id number] Agustina Cordova 11/20/2024 2 [place] 104 Agustina Cordova [id number] Agustina Cordova 12/11/2024 1 [place] Agustina Cordova [id number] 1 [id number] Agustina Cordova 12/11/2024 2 [place] 104 Agustina Cordova [id number] Agustina Cordova Notes Date Note Type Note Provider Name and Address Organization Details Recorded Time 02/07/2024 text/html Patient returns she is complaining of pain in both knees she has severe primary arthritis in the left knee moderately severe in the right. She has ndey-zx-rxvv changes in the medial compartment of the left knee nearly yokp-nm-jojb in the lateral compartment of the right [...] gets by with conservative measures. ELOISA Craig [address] [place] [address], [place] [address], [place], [address], [facility] [employer] 02/07/2024 10:51:58 05/15/2024 text/html Patient returns with bilateral knee pain. She has severe primary osteoarthritis left knee moderately severe in the right knee. She has bnan-tr-zlgb changes in medial compartment left knee in [...] for total knee arthroplasty. ELOISA Craig [address], [address], [place], [address], [facility] [employer] 05/15/2024 10:40:38 08/21/2024 text/html Patient returns she is complaining of bilateral knee pain left slightly worse than right the left knee is esgi-cw-pavf in the medial compartment right knee not quite yet there but certainly both compartments in the right knee tibial femoral articulation are very narrowed near wskq-mv-oktp. She also has significant patellofemoral changes. She [...] past medical history recently. ELOISA Craig [address], [place], [address], [employer] 08/21/2024 10:53:29 11/20/2024 text/html The patient retu rns complaining of bilateral knee pain. Previous x-rays show severe primary osteoarthritis of the left knee moderately severe in the right knee. Left knee is tkjj-rb-xpll in the medial compartment right knee has [...] in total knee arthroplasty. ELOISA Craig [address], [facility] [address], [place], [address], [employer] [facility] 11/20/2024 11:16:25 12/11/2024 text/html . Patient is a 8-year-old female who returns for routine foot care secondary to elongated toenails she is unable to cut them states when they are long they are painful she states she has pain to the toes with shoe gear she denies any other complaints. Nadeem Blair DPM [address], [facility] [address], [place], [address], [employer] 12/11/2024 12:47:49 OBGyn Episode No OBEpisode recorded.
--- OUTSIDE RECORDS SUMMARY | 2025-01-21 12:35 | XMS_ITS ---
Author Organization [facility] Address [address] [place] [address] Care Team Providers Care Manager Six Sigma Name Role Phone Miscellaneous, Not In File Unavailable Unava ilable Sheryl Latham MD Unavailable Ashlee Doyle MD Primary Care Provider [phone] Jonh Junior MD Unavailable [phone] Active Problems Problem Noted Date Diagnosed Date [...] stable from prior notes from [facility] [place] - Fundus exam and photos appear stable [...] Patient should continue to monitor with her mechanic general operational test Assessment & Plan (04/01/2022 3:54 PM CDT): [...] (ERM) peel right eye (OD) 2007 at [facility]. Asked patient to bring notes or forward prior to next visit. Follows with Dr. Izaguirre at [facility]. Will have second opinion with [facility] next available per patient request. CVA (cerebral vascular accident) 01/13/2022 History of severe acute resp iratory syndrome coronavirus 2 (SARS-CoV-2) disease 12/11/2021 On long term care administrator drug therapy 12/11/2021 Bradycardia 12/04/2021 Sinus pause [...] exertion 06/06/2018 Coronary artery disease invo lving [place] coronary artery of [place] heart without angina pectoris 06/06/2018 Assessment & [...]
--- OUTSIDE RECORDS SUMMARY | 2025-01-21 12:35 | XMS_ITS | CONTINUITY OF CARE DOCUMENT ---
Author Name taylor vazquez Address Unknown Organization [facility] Address [address] [place] [address] [address] [place] [address] Phone [phone] Care Team Providers Care Trolley Worker Name Role Phone Gilmar CRUZ, Juliana Unavailable Juliana Schafer MD Unavailable INSURANCE PROVIDERS Payer name Policy type / Coverage type Pearson red libertarian ID [employer] [id number] [place] [employer] Medicare [id number]
--- OUTSIDE RECORDS SUMMARY | 2025-01-21 12:35 | XMS_ITS | Referral Summary ---
Author Organization [facility] Address [address] [place] [address] Care Team Providers Care Liquified Natural Gas Technician Name Role Phone Miscellaneous, Not In File Unavailable Unava ilable Sheryl Latham MD Unavailable Ashlee Doyle MD Primary Care Provider [phone]- [phone] Jonh Junior MD Unavailable Encounters Date Type Department Care Team Description 01/11/2025 Telephone [facility] Cardiology [facility] 8th [place] [address] [place] [address] Jonh Junior MD 11/20/2024 Results Follow-Up [facility] [address] [place] [address] India Contreras DO 11/15/2024 1:27 PM CIRCUIT BOARD INSPECTOR - 11/15/2024 11:59 PM CIRCUIT BOARD INSPECTOR Hospital Encounter [facility] [address] [place] [address] Vaginal irritation Discharge Disposition: Discharge to home or self care 11/15/2024 1:00 PM CIRCUIT BOARD INSPECTOR Office Visit [facility] [place] [address] [place] [address] India Contreras DO Encounter for annual routine gynecological examination (Primary Dx); Vaginal irritation; Vaginal atrophy 10/30/2024 10:00 AM CIRCUIT BOARD INSPECTOR Office Visit [facility] Gastroenterology [facility] 12th [place] [address] [place] [address] Dallas Weston MD Esophageal dysphagia (Primary Dx); Achalasia; Dyspepsia; Aimee infection, esophageal (HCC) from Last 3 Months Allergies Active Allergy Reactions Criticality Noted Date Comments Solifenacin Other (See comments) Low 11/25/2022 Dry mouth Sulfa (Sulfonamide Antibiotics) Rash,Other (See comments) High 07/02/2014 Sulfur Dioxide Swelling Medium 11/14/2023 Medications fluticasone (FLONASE) 50 mcg/actuation nasal spray Administer 1 spray into each nostril daily 5 Active timolol (TIMOPTIC) 0.25 % ophthalmic solution Administer 1 drop into both eyes 2 (two) times a day Active acetaminophen (TYLENOL) 500 mg tabletIndications :Arthritis Take 2 tablets (1,000 mg total) by mouth 3 (three) times a day as needed for pain 180 tablet 11 1 Active hydrocortisone (ANUSOL-HC) 2.5 % rectal cream 2 (two) times a day 2 Active rosuvastatin (CRESTOR) 5 mg tabletIndications :Coronary artery disease involving [place] coronary artery of [place] heart without angina pectoris Take 1 tablet (5 mg total) by mouth daily 90 tablet 2 2 Active melatonin 3 mg tablet extended release Take 1 tablet by mouth as needed 3 Active cyanocobalamin (Vitamin B-12) 1,000 mcg tablet Take 1 tablet (1,000 mcg total) by mouth daily 4 Active polysaccharide iron complex (NU-IRON) 150 mg iron capsule Take 1 capsule (150 mg total) by mouth every other day 4 Active amiodarone (PACERONE) 100 mg tabletIndications :Atrial fibrillation with RVR (HCC),Essential hypertension Take 1 tablet (100 mg total) by mouth daily 30 tablet 11 4 03/07/20 25 Active Eliquis 2.5 mg tablet TAKE 1 TABLET BY MOUTH EVERY 12 HOURS 180 tablet 3 4 Active sacubitriL-valsar hernández (ENTRESTO) 24-26 mg tabletIndications :chronic heart failure Take 1 tablet by mouth 2 (two) times a day 180 tablet 3 4 Active famotidine (PEPCID) 20 mg tablet Take 1 tablet (20 mg total) by mouth 2 (two) times a day Active rosuvastatin (CRESTOR) 5 mg tablet Take 1 tablet (5 mg total) by mouth daily Active pantoprazole DR (PROTONIX) 40 mg EC tablet Take 1 tablet (40 mg total) by mouth daily before breakfast 90 tablet 3 5 10/30/19 26 Active estradioL (ESTRACE) 0.01 % (0.1 mg/gram) vaginal cream Apply 0.5-1g nightly to vagina for 1 week, then Tuesday// Tuesday 42.5 g 5 5 07/13/20 25 Active spironolactone (ALDACTONE) 25 mg tablet TAKE 1 TABLET BY MOUTH EVERY DAY IN THE MORNING 90 tablet 1 5 Active Active Problems Problem Noted Date Diagnosed [...] stable from prior notes from [facility] - Fundus exam and photos appear stable [...] should continue to monitor with her general internal medicine doctor Assessment & Plan (04/01/2022 3:54 PM CDT): [...] (ERM) peel right eye (OD) 2007 at [facility]. Asked patient to bring notes or forward prior to next visit. Follows with Dr. Izaguirre at [facility]. Will have second opinion with [facility] next available per patient request. CVA (cerebral vascular accident) 01/13/2022 History of severe acute resp iratory syndrome coronavirus 2 (SARS-CoV-2) disease 12/11/2021 On ferry terminal agent drug therapy 12/11/2021 Bradycardia 12/04/2021 Sinus pause [...] exertion 06/06/2018 Coronary artery disease invo lving [place] coronary artery of [place] heart without angina pectoris 06/06/2018 Assessment & [...] Immunization Administration Dates Next Due COVID-19 mRNA ([employer]) 0.3 m L (30 mcg) vaccine (12 [...] on file Legal Sex Female 2:10 AM CIRCUIT BOARD INSPECTOR Gender Identity Not on file Sexual Orientation Not on file Occupation Industry Job Start Date Job End Date retired Not on file Not on file Not on file Last Filed Vital Signs Vital Sign Reading Time Taken Comments Blood Pressure 120/60 11/15/2024 12:54 PM CIRCUIT BOARD INSPECTOR Pulse 72 10/30/2024 9:57 AM CIRCUIT BOARD INSPECTOR Temperature 36.2 C (97.1 F) 10/30/2024 9:57 AM CIRCUIT BOARD INSPECTOR Respiratory Rate 16 08/30/2024 10:38 AM CIRCUIT BOARD INSPECTOR Oxygen Saturation 97% 08/30/2024 10:38 AM CIRCUIT BOARD INSPECTOR Inhaled Oxygen Concentration - - Weight 54.9 kg (121 lb) 11/15/2024 12:54 PM CIRCUIT BOARD INSPECTOR Height 165.1 cm (5' 5 ) 11/15/2024 12:54 PM CIRCUIT BOARD INSPECTOR Body Mass Index 20.14 11/15/2024 12:54 PM CIRCUIT BOARD INSPECTOR Plan of Treatment Not on file Procedures Procedure Name Priority Date/Time Associated Diagnosis Comments VAGINITIS PANEL Routine 11/15/2024 3:37 PM CIRCUIT BOARD INSPECTOR Vaginal irritation from Last 3 Months Results * Vaginitis panel Vaginal (11/15/2024 3:37 PM CIRCUIT BOARD INSPECTOR) Aimee DNA probe Not Detected Not Detected Comment:Testing performed by : [facility], [address] [place] [address]., [id number] Gardnerella DNA probe Not Detected Not Detected BENJAMIN ELLINGTON Comment:Testing performed by : [facility], [address] [place] [address]., [id number] Trichomonas DNA probe Not Detected Not Detected BENJAMIN ELLINGTON Comment: Interpretive Data Testing performed by [facility] via Affirm VPIII Microbial Identification Test, [...] last revised on 2020. Testing performed by: [facility], [address] [place] [address]., [id number] Vaginal 11/15/2024 3:37 PM CIRCUIT BOARD INSPECTOR 11/16/2024 1:52 PM CIRCUIT BOARD INSPECTOR us India Contreras DO LAB MICROBIOLOGY - GENE RAL ORDERABLES Final Result BENJAMIN ELLINGTON [id number] [address] Department [place] [address] from Last 3 Months Insurance MEDICARE [facility] MEDICARE MEDICARE [facility] ACCESS CHOICE ANTHEM ACCESS MEDICARE [facility] FEDERAL Advance Directives For more information, please contact: [phone] * Full Code (Latest Code Status on [...] 11:35 PM 02/20/2021 8:13 PM Care Teams Liquified Natural Gas Technician Relationship Specialty Start Date End Date Ashlee Doyle MD [address] [place] [address] PCP - General Internal Medicine 09/05/23 Miscellaneous, Not In File 03/24/21 Sheryl Latham MD Medical Oncologist/Applications Scientist Medical Oncology 05/12/21 Jonh Junior MD [address] [place] [address] Referring Physician Cardiology 09/05/23
--- OUTSIDE RECORDS SUMMARY | 2025-01-21 12:35 | XMS_ITS | Clinical Summary ---
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 Asked patient to bring notes or forward prior to next visit. Follows with Dr. Izaguirre at [facility]. Will have second opinion with [facility] next available per patient request. CVA (cerebral vascular accident) 01/13/2022 History of severe acute resp iratory syndrome coronavirus 2 (SARS-CoV-2) disease 12/11/2021 On termite treater drug therapy 12/11/2021 Bradycardia 12/04/2021 Sinus pause [...] exertion 06/06/2018 Coronary artery disease invo lving [place] coronary artery of [place] heart without angina pectoris 06/06/2018 Assessment & [...] Type Department Care Team Description 01/11/2025 Telephone [facility] Cardiology [address] [facility] 8th [place] [address] [place] [address] Jonh Junior MD 11/20/2024 Results Follow-Up [address] [address] India Contreras DO 11/15/2024 1:27 PM DIGITAL MEDIA PRODUCER - 11/15/2024 11:59 PM DIGITAL MEDIA PRODUCER Hospital Encounter [facility] [address] [place] [address] Vaginal irritation Discharge Disposition: Discharge to home or self care 11/15/2024 1:00 PM DIGITAL MEDIA PRODUCER Office Visit [facility] [address] [place] [address] India Contreras DO Encounter for annual routine gynecological examination (Primary Dx); Vaginal irritation; Vaginal atrophy 10/30/2024 10:00 AM DIGITAL MEDIA PRODUCER Office Visit [facility] Gastroenterology [facility] 12th [place] [address] [place] [address] Dallas Weston MD Esophageal dysphagia (Primary Dx); Achalasia; Dyspepsia; Aimee infection, esophageal (HCC) from Last 3 Months Immunizations Immunization Administration Dates Next Due COVID-19 mRNA ([employer]) 0.3 m L (30 mcg) vaccine (12 [...] on file Legal Sex Female 2:10 AM DIGITAL MEDIA PRODUCER Gender Identity Not on file Sexual Orientation [...] Comments Blood Pressure 120/60 11/15/2024 12:54 PM DIGITAL MEDIA PRODUCER Pulse 72 10/30/2024 9:57 AM DIGITAL MEDIA PRODUCER Temperature 36.2 C (97.1 F) 10/30/2024 9:57 AM DIGITAL MEDIA PRODUCER Respiratory Rate 16 08/30/2024 10:38 AM DIGITAL MEDIA PRODUCER Oxygen Saturation 97% 08/30/2024 10:38 AM DIGITAL MEDIA PRODUCER Inhaled Oxygen Concentration - - Weight 54.9 kg (121 lb) 11/15/2024 12:54 PM DIGITAL MEDIA PRODUCER Height 165.1 cm (5' 5 ) 11/15/2024 12:54 PM DIGITAL MEDIA PRODUCER Body Mass Index 20.14 11/15/2024 12:54 PM DIGITAL MEDIA PRODUCER Plan of Treatment Health Maintenance Due Date [...] Completed 03/29/2019, 03/19, 09/21/2018, Additional history exists Osteoporosis Screening-Bone Density Scan Discontinued 07/09/2022, 02/29/2020, 10/08/2019, Additional history exists Procedures Procedure Name Priority Date/Time Associated Diagnosis Comments VAGINITIS PANEL Routine 11/15/2024 3:37 PM DIGITAL MEDIA PRODUCER Vaginal irritation BONE MINERAL DENSITY 04/05/2017 from Last 3 Months or Most Recently Relevant to Health Maintenance Results * Vaginitis panel Vaginal (11/15/2024 3:37 PM DIGITAL MEDIA PRODUCER) Aimee DNA probe Not Detected Not Detected Comment:Testing performed by : [facility], [address] [place] [address]., [id number] Gardnerella DNA probe Not Detected Not Detected BENJAMIN Comment:Testing performed by : [facility], [address] [place] [address]., [id number] Trichomonas DNA probe Not Detected Not Detected BENJAMIN Comment: Interpretive Data Testing performed by [facility] via Affirm VPIII Microbial Identification Test, a [...] last revised on 2020. Testing performed by: [facility], [address] [place] [address]., [id number] Vaginal 11/15/2024 3:37 PM DIGITAL MEDIA PRODUCER 11/16/2024 1:52 PM DIGITAL MEDIA PRODUCER India Contreras DO LAB MICROBIOLOGY - GENE RAL ORDERABLES Final Result BENJAMIN ELLINGTON [id number] Department [place] [address] * BONE MINERAL DENSITY (04/05/2017) Anatomical Region Laterality Modality Radiographic Christi ging Narrative 04/05/2017 Ordered by an unspecified provider. us Historical Provider MD GRIGGS DXA PROCEDURES Final Result from Last 3 Months or Most Recently Relevant to Health Maintenance [place] [address] [facility] MEDICARE MEDICARE ANTHEM ACCESS CHOICE ANTHEM ACCESS MEDICARE [facility] Advance Directives For more information, please contact: [phone] * Full Code (Latest Code Status on [...] 11:35 PM 02/20/2021 8:13 PM Care Teams Manager Protein Relationship Specialty Start Date End Date Ashlee Doyle MD [address] [facility] [address] [place] [address] PCP - General Internal Medicine 09/05/23 Miscellaneous, Not In File 03/24/21 Sheryl Latham MD Medical Oncologist/Band Straightener Medical Oncology 05/12/21 Jonh Junior MD [address] [facility] [address] [place] [address] Referring Physician Cardiology 09/05/23
--- OUTSIDE RECORDS SUMMARY | 2025-01-21 12:36 | XMS_ITS | Patient Health Record ---
Author Organization [facility] Address [address] [place] [address] Care Team Providers Care Sewer Connector Name Role Phone Rafael Barrios Primary Care Provider Reason For Referral No Information Plan Of Treatment No Information
--- OUTSIDE RECORDS SUMMARY | 2025-01-21 12:36 | XMS_ITS | Data Portability ---
Author Organization [facility], [employer] Address [address] [place] [address] Care Team Providers Care Train Crew Member Name Role Phone BONITA DOYLEANABEL Primary Care Provider Assessment Encounter Date Assessment Date Assessment LastModified [...] + folate, serum or blood 2024 025 [facility], [address] [place], [address], 14:39:51 magnesium, QN, serum or plasma [address] [facility], [address] [place], [address], 5 15:32:57 CMP, serum or plasma 2024 025 [facility], [address] [place], [address], 5 14:39:51 CBC w/ auto diff 2024 025 [facility], [address] [place], [address], 5 20:59:59 hemoglobin A1c, QN, blood 2024 025 [facility], [address] [place], [address], 5 20:59:59 lipid panel w/ direct LDL, serum 2024 025 [facility], [address] [place], [address], 5 14:39:51 TSH, serum or plasma [address] Out[facility] Lab, [address] [place], [address], 5 15:32:57 pro BNP (pro B-type natriureti c peptide), serum or plasma 2024 025 [facility], [address] [place], [address], 5 20:59:59 iron panel, serum or plasma 2024 025 [facility], [address] [place], [address], 5 20:59:59 CMP, serum or plasma 2023 024 [facility], [address] [place], [address], 4 04:09:57 magnesium, QN, serum or plasma 2023 024 [facility], [address] [place], [address], 4 04:09:57 CBC w/ auto diff - 8 weeks from 04/17/242023 024 [facility], [address] [place], [address], 4 14:00:39 iron panel, serum or plasma - 8 weeks from 04/17/242023 024 [facility], [address] [place], [address], 4 04:05:03 lipid panel w/ direct LDL, serum 2023 024 [facility], [address] [place], [address], 4 18:10:08 hepatic function panel, serum 2023 024 [facility], [address] [place], [address], 4 18:10:08 iron panel, serum or plasma 2023 024 [facility], [address] [place], [address], 4 18:10:08 CBC w/ auto diff 2023 024 [facility], [address] [place], [address], 4 18:10:08 Referral otolaryngo logist referral 2023 024 [email or web address] Bola Vega MD, [address] [place] [address], [address], 4 16:02:00 Procedures None recorded. Surgeries None recorded. Imaging CT, chest + abdomen + pelvis, w/o contrast 2024 025 [facility] ([facility]), [address] [place], [address], 5 16:36:21 XR, chest, 2 view 2024 025 [facility] ([facility]), [address] [place], [address], 5 16:48:57 XR, chest, 2 view - 6 weeks from 04/07/242023 024 [facility] ([facility]), [address] [place], [address], 4 13:44:01 Medication Orders Creon 24,000-76, 000-120,00 0 unit capsule,de layed release 2024 025 [id number] [address] [place], [address], 5 13:12:54 Eliquis 2.5 mg tablet 2024 025 [facility] ZIA [address], [address], 5 12:13:09 triamcinol one acetonide 0.1 % topical cream 2023 024 [facility] [address], [address], 4 12:41:20 Eliquis 2.5 mg tablet 2023 024 eladia LIZARRAGA [address], [address], 4 12:41:17 fluconazol e 100 mg tablet 2023 024 [facility] [address], [address], 4 18:22:20 ferrous sulfate 300 mg (60 mg iron)/5 mL oral liquid 2023 024 [facility] [address], [address], 4 18:22:14 benzonatat e 100 mg capsule 2023 024 [facility] [address], [address], 4 20:03:27 meclizine 12.5 mg tablet 2023 025 [facility] [address], [address], 5 12:03:37 Patient TargetsNo targets recorded. Patient Instructions Encounter Date Encounter Id Patient Instructions Last Modified By Organization Details Last Modified Time 01/06/2024 [id number] age-related macular degeneration: care instructions mshenouda Not available 01/06/2024 13:47:38 03/06/2024 [id number] mammogram: about this test mshenouda Not available 03/06/2024 15:56:05 cough: care instructions mshenouda Not available 03/06/2024 15:56:05 benign paroxysma l positional vertigo (bppv): care instructions mshenouda Not available 03/06/2024 15:56:04 high cholesterol : care instructions mshenouda Not available 03/06/2024 15:56:05 anemia: care instructions mshenouda Not available 03/06/2024 15:56:05 carotid stenosis : care instructions mshenouda Not available 03/06/2024 15:56:05 04/18/2024 [id number] pneumonia: care instructions mshenouda Not available 04/18/2024 12:31:54 vaginal yeast infection: care instructions mshenouda Not available 04/18/2024 12:31:54 iron deficiency anemia: care instructions mshenouda Not available 04/18/2024 12:31:54 heart failure: care instructions mshenouda Not available 04/18/2024 12:31:54 learning about heart failure mshenouda Not available 04/18/2024 12:31:54 06/18/2024 [id number] learning about swallowing problems mshenouda Not available 06/18/2024 12:41:18 mammogram: about this test mshenouda Not available 06/18/2024 12:41:18 heart failure: care instructions mshenouda Not available 06/18/2024 12:41:18 learning about heart failure mshenouda Not available 06/18/2024 12:41:18 10/08/2024 [id number] mammogram: about this test mshenouda Not available 10/08/2024 12:13:06 high cholesterol : care instructions mshenouda Not available 10/08/2024 12:13:06 carotid stenosis : care instructions mshenouda Not available 10/08/2024 12:13:05 iron deficiency anemia: care instructions mshenouda Not available 10/08/2024 12:13:06 Reason for Referral [employer] Referral fo r Benign paroxysmal positional vertigo Referring Physician: Ashlee Doyle, Internal Medicine, Encounter Date: 03/06/2024 Results Created Date Observation Date Name Description Value Unit Range Abnormal Flag Note LastModifiedBy Organization Detail LastModifiedTime 12/30/19 24 12/30/2023 MAMMO , scree aniya, digit al, bilat eral No observ ation record ed. [facility] [address] [place], [address], 01/11/2024 12:52:09 04/03/20 24 04/02/2024 XR, chest , 2 view No observ ation record ed. [address], [address], 04/18/2024 12:11:50 04/05/20 24 04/05/2024 XR, chest , 2 view No observ ation record ed. [address] [address], [place], [address], 04/18/2024 12:11:49 05/16/20 24 05/16/2024 XR, chest , 2 view No observ ation record ed. [facility] [address] [place], [address], 06/18/2024 12:28:47 10/23/19 25 10/23/2024 XR, chest , 2 view No observ ation record ed. [facility] [address] [place], [address], 10/24/2024 16:52:49 10/23/19 25 10/23/2024 CT, chest + abdom en + pelvi s, w/o contr ast No observ ation record ed. [address] [place], [address], 10/24/2024 18:57:22 11/27/19 25 11/26/2024 US, liver No observ ation record ed. [facility] [address] [place], [address], 11/28/2024 13:45:59 01/16/20 25 01/15/2025 XR, hip, bilat eral No observ ation record ed. [facility] [address], [place], [address], 01/15/2025 22:10:25 Result Notes None recorded. Problems Name Problem SNOMED Code Status Onset Date Resolution Date Notes Provider Name and Address Organization Details Recorded Time Congestiv e heart failure 06334600 Active 2023 Ashlee Doyle MD [address], [place], [address] , [facility] 12:20:10 Iron deficienc y anemia 65191664 Active 2023 Ashlee Doyle MD [address], [place], [address] , [facility] 4 12:22:31 Left bundle branch block 25175777 Active 2023 Ashlee Doyle MD [address], [place], [address] , [facility] 4 12:26:56 Stasis dermatiti s 51483530 Active 2023 Ashlee Doyle MD [address], [place], [address] , [place] [facility] 4 12:34:37 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 2023 Ashlee Doyle MD [address], [place], [address] , [place] [facility] 4 17:34:02 CT of abdomen abnormal 42570959503 726163 Active 2024 Ashlee Doyle MD [address], [place], [address] , [place] [facility] 5 20:40:35 Prediabet es 483746425 Active 2024 Dxed by A1c 6.2% on 10/23/24 Ashlee Doyle MD [address] [address], [place], [address] , [facility] 5 21:01:29 Benign hypertens ion 62059389 Active 2016 Not Available [facility] 3 14:49:31 Hyperlipi demia 00909401 Active 2016 Not Available [facility] 3 14:49:31 Hemorrhoi ds 48602033 Active 2016 Not Available [facility] 3 14:49:31 Left bundle branch block 74417408 Active 2016 sees cardiolog y once a year Not Available [facility] 3 14:49:31 Osteopeni a 647580295 Active 2016 Not Available [facility] 3 14:49:31 Osteoarth ritis 000266087 Active 2016 Not Available [facility] 3 14:49:31 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 Not Available [facility] 3 14:49:31 Transient cerebral ischemia 998964058 Active 2016 Not Available [facility] 3 14:49:31 Allergic rhinitis 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 96259822 Active 2016 Not Available [facility] 3 14:49:31 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 241123517 Active 2016 Not Available [facility] 3 14:49:31 Carotid artery stenosis 60738298 Active 2016 Not Available [facility] 3 14:49:31 Focal onset epileptic seizure 62692385 Active 2017 Not Available [facility] 3 14:49:31 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 547943262 Active 2017 Not Available [facility] 3 14:49:31 History of Malignant melanoma 419433218 Active 2018 Not Available [facility] 3 14:49:31 Gastroeso phageal reflux disease without esophagit is 755633526 Active 2018 Not Available [facility] 3 14:49:31 Ophthalmi c migraine 59035281 Active 2018 on ophth note 07/24/19 Not Available [facility] 3 14:49:31 Open-angl e glaucoma of left eye 623410389 Active 2018 on ophth note 07/24/19 Not Available [facility] 3 14:49:31 Idiopathi c periphera l neuropath y 46267036 Active 2019 Not Available [facility] 3 14:49:31 Family history of diabetes mellitus 340327592 Active 2019 Not Available [facility] 3 14:49:31 Neoplasm of supraclav icular region 556628866 Active 2020 Not Available [facility] 3 14:49:31 Hyponatre kasandra 24619526 Active 2020 Not Available [facility] 3 14:49:31 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, face AND/OR neck 10378356 Active 2020 Not Available [facility] 3 14:49:31 Coronary arteriosc lerosis 47016110 Active 2020 non occlusive per cardiolog y note 06/11/21 Not Available [facility] 3 14:49:31 Paroxysma l atrial fibrillat ion 572749698 Active 2020 Not Available [facility] 3 14:49:31 Diffuse high grade B-cell lymphoma 653984955 Active 2020 Not Available [facility] 3 14:49:31 Macrocyto sis 815361942 Active 2020 Not Available [facility] 3 14:49:31 History of SARS-CoV- 2 43658515084 2360784 Active 2021 Not Available [facility] 3 14:49:31 Long-term drug therapy Active 2021 Not Available [facility] 3 14:49:31 Increased frequency of urination 026569854 Active 2021 Not Available [facility] 3 14:49:31 Vitamin B deficienc y 45001636 Active 2022 Not Available [facility] 3 14:49:31 Mixed urinary incontine nce 476239183 Active 2022 Not Available [facility] 3 14:49:31 Hypomagne semia 140106532 Active 2022 Not Available [facility] 3 14:49:31 Mixed hyperlipi demia 573885642 Active 2022 Not Available [facility] 3 14:49:31 Insomnia 053281341 Active 2022 Not Available [facility] 3 14:49:31 Periphera l vascular disease 252185483 Active 2022 Ashlee Doyle MD [address], [place], [address] , [facility] 3 11:47:35 Anemia 985518643 Active 2023 Ashlee Doyle MD [address], [place], [address] , [facility] 4 22:05:29 Body mass index less than 20 584898035 Active 2023 Ashlee Doyle MD [address], [place], [address] , [facility] 4 11:56:56 Dysphagia 91307023 Active 2023 Ashlee Doyle MD [address], [place], [address] , [facility] 4 14:14:25 Mild memory disturban ce 926235126 Active 2023 Ashlee Doyle MD [address], [place], [address] , [facility] 4 13:46:21 Problem Notes None recorded. Procedures Surgical History Date Name Laterality Status Provider Name and Address Organization Details Recorded Time Partial Hysterectomy completed Ashlee Doyle MD [address] [facility] [address], [place], [address], [place] [facility] 05/10/2017 15:03:45 Imaging Results Imaging Date Name Status LastModified by Organiz ation Details LastModified Time 12/30/2023 MAMMO, screening, digital, bilateral completed [facility] [address] [place], [address], 01/11/2024 12:52:09 04/02/2024 XR, chest, 2 view [address], [address], 04/18/2024 12:11:50 04/05/2024 XR, chest, 2 view completed [address], [address], 04/18/2024 12:11:49 05/16/2024 XR, chest, 2 view completed [facility] [address] [place], [address], 06/18/2024 12:28:47 10/23/2024 XR, chest, 2 view completed [facility] [address] [place], [address], 10/24/2024 16:52:49 10/23/2024 CT, chest + abdomen + pelvis, w/o contrast completed [address] [place], [address], 10/24/2024 18:57:22 11/26/2024 US, liver completed [facility] [address] [place], [address], 11/28/2024 13:45:59 01/15/2025 XR, hip, bilateral active [address], [address], 01/15/2025 22:10:25 Procedure Notes None recorded. Medical Equipment None Reported. Allergies Allergen ID Allergen Name Allergen Category Reaction Reaction Severity Criticality Documentation Date Start Date Code Code System Note Provider Name and Address Organization Details Recorded Time 09420 solifenac in medicatio n dry mouth Not available Not available 10/12/2022 02378 7 RxNorm Not Available [facility] 3 14:49:32 04682 sulfur dioxide medicatio n facial swelling Not available Not available 01/11/2025 20207 79 RxNorm Not Available [facility] - External Data Service - prod 5 10:56:21 5921 Substance with sulfonami de structure and antibacte rial mechanism of action (substanc e) medicatio n other Not available Not available 05/10/2017 22803 8003 SNOMED swell ing Ashlee Doyle MD [address] [facility] [address], [place], [address], [facility] 7 15:03:33 Medications Name Sig Start Date Stop Date [...] Not Available Not Avai lable Fluzone High-Dose 0404-8994 (PF) 180 mcg/0.5 mL intramuscul ar syringe [...] Not Available No t Available Fluzone High-Dose 5716-5790 (PF) 180 mcg/0.5 mL intramuscul ar syringe 06/16 completed Not Available Not Available Not Available Fluad 2018- 65yr up(PF)45 mcg(15 mcgx3)/0.5 mL intramuscul ar syringe 07/03 completed Not Available Not Available Not Available estradiol 1.25 mg/1.25 gram (0.1 %) transdermal gel packet INSERT INTO VAGINA DAILY X 2 WEEKS THEN TWICE PER WEEK THEREAFTE R active Not Available Not Available No t Available Fluzone High-Dose Quad (PF) 240 mcg/0.7 mL IM syringe 05/30 completed Not Available Not Available Not Available Vitals Date Recorded Body height Body mass index (BMI) Body weight Body temperature Respiratory rate Heart rate Systolic blood pressure Diastolic blood pressure Provider Name and Address Organization Details Last Updated DateTime 4 167.64 cm 19.7 kg/m2 66015.2 7 g 97.6 [degF] 18 /min 69 /min 113 mm[Hg] 70 mm[Hg] Migdalia Peraza [facility] 4 12:39:12 Date Recorded Body height Body temperature Respiratory rate Heart rate Body mass index (BMI) Body weight Systolic blood pressure Diastolic blood pressure Provider Name and Address Organization Details Last Updated DateTime 4 167.64 cm 97.8 [degF] 18 /min 66 /min 19.4 kg/m2 27296.0 8 g 128 mm[Hg] 65 mm[Hg] Migdalia Peraza [facility] 4 15:19:20 Date Recorded Body height Body temperature Body mass index (BMI) Body weight Respiratory rate Heart rate Systolic blood pressure Diastolic blood pressure Provider Name and Address Organization Details Last Updated DateTime 4 167.64 cm 97.5 [degF] 19 kg/m2 40895.9 g 18 /min 69 /min 124 mm[Hg] 65 mm[Hg] Migdalia Castroaly [facility] 4 11:49:45 Date Recorded Body height Body temperature Respiratory rate Body mass index (BMI) Body weight Heart rate Systolic blood pressure Diastolic blood pressure Provider Name and Address Organization Details Last Updated DateTime 4 167.64 cm 97.5 [degF] 18 /min 19.4 kg/m2 97739.0 8 g 67 /min 108 mm[Hg] 59 mm[Hg] Migdalia Karmen [facility] 4 12:03:26 Date Recorded Body height Body mass index (BMI) Body weight Body temperature Respiratory rate Heart rate Systolic blood pressure Diastolic blood pressure Provider Name and Address Organization Details Last Updated DateTime 5 167.64 cm 18.9 kg/m2 57853.3 1 g 97.6 [degF] 18 /min 71 /min 101 mm[Hg] 53 mm[Hg] Migdalia Karmen [facility] 5 11:38:34 Social History Question Answer Notes LastModified by Organizat ion Details LastModified Time Tobacco Smoking Status Never Smoker Ashlee Doyle MD [address] [place] [address], [place], [address], [facility] 05/10/2017 15:11:55 What Is Your Level Of [...] available 01/13/2021 What Is Your Occupation? Retired [employer] [facility] Information not available 05/10/2017 Are There Any Guns Present In Your Home? No Information not available 01/13/2021 High Number Of Sexual Partners No Information not available 01/13/2021 History Of Inconsistent/no Condom Use No Information not available 01/13/2021 Live Alone Or With Others? Alone Information not available 05/10/2017 Marital Status Informatio n not available 05/10/2017 What Was The Date Of Your Most Recent Tobacco Screening? 07/09/2022 Information not available 07/09/2022 Mother With HIV? [...] you able to care for yourself? Yes Information n ot available 05/10/2017 Mental Status None recorded. Family History Relationship Description Onset Age of this Age Resolved Age Notes LastModified by Organization Details LastModified Time Father Harmful pattern of use of alcohol 50 mshenouda Not available 2016 15:10:39 Father Cirrhosis of liver mshenouda Not available 2016 15:10:50 Mother Coronary arterioscler osis 82 mshen[place]da Not available 2016 15:11:07 Medical History No medical history recorded. Gynecological HistoryNo gynecological history recorded. Obstetrics History GPAL:G 0 P 0 0 0 0 Immunizations Vaccine Type Date Status Note Provider Nam e and Address Organization Details Recorded Time Influenza, split virus, quadrivalent, preservative 8 completed Ashlee Doyle MD [address], [place], [address], [facility] 06/12/2023 16:15:07 zoster recombinant 9 completed Ashlee Doyle MD [address], [place], [address], [facility] 06/12/2023 16:15:07 zoster live 9 completed Ashlee Doyle MD [address], [place], [address], [facility] 06/12/2023 16:15:08 zoster live 9 completed Ashlee Doyle MD [address], [place], [address], [facility] 06/12/2023 16:15:08 Influenza, split virus, quadrivalent, preservative 9 completed Ashlee Doyle MD [address], [place], [address], [facility] 06/12/2023 16:15:07 Influenza, split virus, quadrivalent, preservative 0 completed Ashlee Doyle MD [address], [place], [address], [facility] 06/12/2023 16:15:07 SARS-COV-2 (COVID-19) vaccine, UNSPECIFIED 1 completed Ashlee Doyle MD [address], [place], [address], [facility] 06/12/2023 16:15:07 COVID-19, mRNA, LNP-S, PF, 30 mcg/0.3 mL dose 1 completed Ashlee Doyle MD [address], [place], [address], [facility] 06/12/2023 16:15:07 Influenza, split virus, quadrivalent, preservative 1 completed Ashlee Doyle MD [address], [place], [address], [facility] 06/12/2023 16:15:07 COVID-19, mRNA, LNP-S, PF, 30 mcg/0.3 mL dose 2 completed Ashlee Doyle MD [address], [place], [address], [facility] 06/12/2023 16:15:07 Influenza, high-dose, quadrivalent, PF 2 completed Ashlee Doyle MD [address], [place], [address], [facility] 06/12/2023 16:15:07 Influenza, MDCK, quadrivalent, PF 3 completed Ashlee Doyle MD [address], [place], [address], [facility] 06/12/2023 16:15:07 RSV, recombinant, protein subunit RSVpreF, adjuvant reconstituted, 0.5 mL, PF 3 completed Ashlee Doyle MD [address], [place], [address], [facility] 06/12/2023 16:15:07 COVID-19, mRNA, LNP-S, PF, nicole-sucrose, 30 mcg/0.3 mL 3 completed Ashlee Doyle MD [address], [place], [address], [facility] 06/12/2023 16:15:07 COVID-19, mRNA, LNP-S, PF, nicole-sucrose, 30 mcg/0.3 mL 4 completed Ashlee Doyle MD [address], [place], [address], [facility] 06/01/2024 14:33:16 COVID-19, mRNA, LNP-S, PF, nicole-sucrose, 30 mcg/0.3 mL 4 completed Ashlee Doyle MD [address], [place], [address], [facility] 06/01/2024 14:33:16 Influenza, high-dose, trivalent, PF 4 completed Ashlee Doyle MD [address], [place], [address], [facility] 06/01/2024 14:33:16 COVID-19, mRNA, LNP-S, PF, nicole-sucrose, 30 mcg/0.3 mL 5 completed Ashlee Doyle MD [address], [place], [address], [facility] 12/26/2024 19:01:03 Td(adult) unspecified formulation 6 completed Ashlee Doyle MD [address], [place], [address], [facility] 06/12/2023 16:15:07 Influenza, split virus, quadrivalent, preservative 6 completed Ashlee Doyle MD [address], [place], [address], [facility] 06/12/2023 16:15:07 Influenza, split virus, quadrivalent, preservative 7 completed Ashlee Doyle MD [address], [place], [address], [facility] 06/12/2023 16:15:07 Pneumococcal conjugate PCV 13 5 completed Ashlee Doyle MD [address], [place], [address], [facility] 06/12/2023 16:15:08 pneumococcal polysaccharide PPV23 9 completed Ashlee Doyle MD [address], [place], [address], [facility] 06/12/2023 16:15:07 zoster live 0 completed Ashlee Doyle MD [address], [place], [address], [facility] 06/12/2023 16:15:08 Hep B, unspecified formulation 8 completed Ashlee Doyle MD [address], [place], [address], [facility] 06/12/2023 16:15:08 Hep A, adult 8 completed Ashlee Doyle MD [address], [place], [address], [facility] 06/12/2023 16:15:08 Past Encounters Encounter ID Performer Location Encounter Start Date Encounter Closed Date Diagnosis/Indication Diagnosis SNOMED-CT Code Diagnosis ICD10 Code Diagnosis Note [id number] Ashlee Doyle MD [facility], [facility] [address] [place] [address] 05/10/2017 13:31:26 05/10/2017 15:39:20 Hyperlipidemia 27391459 E78.5 Left bundl e branch block 78623760 I44.7 Osteopenia 543517647 M85 .80 per pt had DEXA 03/2017 Transient cerebral ischemia 829108437 G45.9 Allergic r hinitis 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 27314009 J30.1 Age relate d macular degeneration 750402823 H35.30 sees ophth every 6 months Benign hypertension 1072 5009 I10 Screening mammography 24 433070 Z12.31 per pt had mammogram 01/2017 Screening for malignant neoplasm of cervix 984340097 Z12.4 Screening for malignant neoplasm of colon 601134849 Z12.11 per pt had C scope 2013 ?? [id number] Ashlee Doyle MD [facility], [facility] [address] [place] [address] 08/29/2017 14:57:53 08/29/2017 15:28:41 Benign hypertension 09706577 I10 Hyperlipidemia 57629171 E78.5 Osteoarthritis 592714130 M19.90 Carotid ar petar stenosis 57919863 I65.29 Screening for malignant neoplasm of colon 911899877 Z12.11 last C scope 11/06/13 , good for 10 years [id number] Ashlee Doyle MD [facility] [address] [place] [address] 09/21/2017 10:11:41 09/21/2017 10:59:28 Cough 65951187 R05 Diarrhea 28183259 R19.7 [id number] Ashlee Doyle MD [facility], [facility] [facility] [address] [place] [address] 11/28/2017 12:38:10 11/28/2017 13:40:04 Adult health examination 012816468 Z00.00 Benign hypertension 1072 5009 I10 good control Hyperlipidemia 53897079 E78.5 recheck Osteopenia 826592915 M85 .80 per pt had DEXA 03/2017 Carotid ar petar stenosis 34941890 I65.29 last U/S 09/22/17 Transient cerebral ischemia 368662150 G45.9 ASA 83 , no recurrence Age relate d macular degeneration 358266385 H35.30 sees ophth every 6 months 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 , asymptomat ic for now Osteoarthritis 909519170 M19.90 Left bundl e branch block 41411976 I44.7 will check EKG Hemorrhoids 36965844 K64 .9 Polyuria 14422756 R35.8 Screening for malignant neoplasm of colon 791241440 Z12.11 last C scope 11/06/13 , good for 10 years Screening mammography 24 360664 Z12.31 per pt had mammogram 01/2017 Screening for malignant neoplasm of cervix 054023514 Z12.4 per pt had PAP 06/2017 [id number] Ashlee Doyle MD [employer], [employer] [address] [place] [address] 02/28/2018 13:37:07 02/28/2018 14:29:09 Benign hypertension 07516300 I10 good control Osteopenia 346499783 M85 .80 per pt had DEXA 03/2017 Transient cerebral ischemia 334637428 G45.9 ASA 81 , no recurrence Carotid ar petar stenosis 43810779 I65.29 last U/S 2015 Screening mammography 24 265592 Z12.31 per pt had mammogram 01/2018 Screening for malignant neoplasm of colon 807216538 Z12.11 last C scope 11/06/13 , good for 10 years [id number] Ashlee Doyle MD [facility] [address] [place] [address] 06/16/2018 12:54:37 06/16/2018 13:53:05 Gastroesophageal reflux disease without esophagitis 140261381 K21.9 Hyperlipidemia 98201318 E78.5 last LDL 11/2017 Sinusitis 63672549 J32.9 Benign hypertension 1072 5009 I10 good control Screening mammography 24 319946 Z12.31 per pt had mammogram 01/2018 Screening for malignant neoplasm of cervix 928628451 Z12.4 per pt had PAP 06/2017 Screening for malignant neoplasm of colon 550724814 Z12.11 last C scope 11/06/13 , good for 10 years Active or passive immunization 588167652 Z23 Carotid ar petar stenosis 32466896 I65.29 last U/S 2016 ., per pt cardiology is repeating [id number] Ashlee Doyle MD [employer], [facility] [address] [place] [address] 10/03/2018 14:57:58 10/03/2018 16:11:48 Benign hypertension 42550018 I10 good control Carotid ar petar stenosis 59985220 I65.29 last U/S 08/10/18 ., per pt cardiology is repeating Transient cerebral ischemia 871106881 G45.9 ASA 81 , no recurrence Vitamin D deficiency 347 02808 E55.9 Gastroesop hageal reflux disease without esophagitis 226702801 K21.9 Sinusitis 77400317 J32.9 Screening mammography 24 611252 Z12.31 per pt had mammogram 01/2018 Screening for malignant neoplasm of cervix 609628252 Z12.4 per pt had PAP 06/2017 Hemorrhoids 45072550 K64 .9 Screening for malignant neoplasm of colon 689758973 Z12.11 last C scope 11/06/13 , good for 10 years Mixed hyperlipidemia 267 589965 E78.2 [id number] Ashlee Doyle MD [facility], [employer] [address] [place] [address] 01/05/2019 12:24:53 01/05/2019 13:06:15 Adult health examination 341265572 Z00.01 Benign hypertension 1072 5009 I10 good control Hyperlipidemia 03658402 E78.5 last LDL 01/01/19 Left bundl e branch block 12583877 I44.7 will check EKG Osteopenia 174894034 M85 .80 per pt had DEXA 03/2017 Osteoarthritis 513886759 M19.90 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 , asymptomat ic for now Age relate d macular degeneration 455676461 H35.30 sees ophth every 6 months Allergic r hinitis 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 09494205 J30.1 Carotid ar petar stenosis 50455345 I65.29 last U/S 08/10/18 ., per pt cardiology is repeating Focal onse t epileptic seizure 54773508 G40.109 no recurrence Hemorrhoids 65965731 K64 .9 History of Malignant melanoma 585154123 Z85.820 Screening mammography 24 400827 Z12.31 per pt had mammogram 01/2018 Screening for malignant neoplasm of cervix 901415980 Z12.4 per pt had PAP 06/2017 Screening for malignant neoplasm of colon 305851762 Z12.11 last C scope 11/06/13 , good for 10 years [id number] Ashlee Doyle MD [facility], [facility] [address] [place] [address] 04/10/2019 11:48:21 04/10/2019 12:24:24 Benign hypertension 65667320 I10 good control Hyperlipidemia 66575317 E78.5 last LDL 01/01/19 Osteopenia 013415519 M85 .80 per pt had DEXA 05/12/2017 Carotid ar petar stenosis 09691172 I65.29 last U/S 08/10/18 ., per pt cardiology is repeating Screening mammography 24 108524 Z12.31 per pt had mammogram 01/2018 Screening for malignant neoplasm of colon 905456811 Z12.11 last C scope 11/06/13 , good for 10 years [id number] Ashlee Doyle MD [place] [employer] [facility], [facility] [address] [place] [address] 07/03/2019 11:59:15 07/03/2019 12:33:09 Benign hypertension 27745300 I10 per pt BP on the low side , will decrease irbesartan to 1/2 tab of 75 , BP 2 weeksseen ophth 06/2019 Hyperlipidemia 80681166 E78.5 last LDL 01/01/19 Osteopenia 213701930 M85 .80 per pt had DEXA 05/12/2017 Carotid ar petar stenosis 30138031 I65.29 last U/S 08/10/18 ., per pt cardiology is repeating Gastroesop hageal reflux disease without esophagitis 297395528 K21.9 Sinusitis 05809859 J32.9 Screening mammography 24 492789 Z12.31 per pt had mammogram 02/2019 Screening for malignant neoplasm of cervix 208052069 Z12.4 per pt had PAP 06/2017 Screening for malignant neoplasm of colon 509454144 Z12.11 last C scope 11/06/13 , good for 10 years Active or passive immunization 625610721 Z23 up to date [id number] Ashlee Doyle MD [facility], [facility] [address] [place] [address] 10/08/2019 14:13:26 10/08/2019 15:12:20 Benign hypertension 93104743 I10 seen ophth 06/2019 Carotid ar petar stenosis 98023657 I65.29 last U/S 08/10/18 ., Hyperlipidemia 44561527 E78.5 last LDL 01/01/19 History of Malignant melanoma 332437313 Z85.820 sees derm on yearly basis Osteoarthritis 088261467 M19.90 Osteopenia 127776740 M85 .80 per pt had DEXA 05/12/2017 Screening mammography 24 121948 Z12.31 per pt had mammogram 02/2019 Screening for malignant neoplasm of colon 936444955 Z12.11 last C scope 11/06/13 , good for 10 years Active or passive immunization 894858228 Z23 up to date [id number] [facility] [facility], [facility] [address] [place] [address] 11/19/2019 11:02:38 11/19/2019 11:38:22 Varicose veins of lower extremity 29494585 I83.93 Skin nodule 54271668 R22 .9 left coates - Pain in le ft lower limb 252403809 M79.605 medial and lateral of lower calf Paresthesi a of lower extremity 671093403 R20.2 off and on x 6 months - left pretibial area - no numbness or weaknessoc curs occasional ly - [id number] Ashlee Doyle MD [facility], [facility] [address] [place] [address] 02/29/2020 12:53:53 02/29/2020 13:37:18 Adult health examination 032418905 Z00.01 Benign hypertension 1072 5009 I10 seen ophth 06/2019 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 22540 I82.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 , asymptomat ic for now Age relate d macular degeneration 389809207 H35.30 sees ophth every 6 months Allergic r hinitis 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 64120317 J30.1 stable on OTC meds Carotid ar petar stenosis 29172037 I65.29 last U/S 08/10/18 ., Gastroesop hageal reflux disease without esophagitis 137924384 K21.9 stable on diet control History of Malignant melanoma 304121422 Z85.820 sees derm on yearly basis Hyperlipidemia 20390679 E78.5 last LDL 01/01/19 Left bundl e branch block 03880950 I44.7 will check EKG 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.B0 less than 2 times a month Osteoarthritis 009674404 M19.90 tylenol 500 TID Osteopenia 680744770 M85 .80 per pt had DEXA 05/12/2017 Focal onse t epileptic seizure 23612460 G40.109 no recurrence Transient cerebral ischemia 189586247 G45.9 ASA 81 , no recurrence Screening mammography 24 941684 Z12.31 per pt had mammogram 02/2019 Screening for malignant neoplasm of cervix 387506833 Z12.4 per pt had PAP 06/2017 Screening for malignant neoplasm of colon 491111981 Z12.11 last C scope 11/06/13 , good for 10 years Active or passive immunization 688196190 Z23 up to date [id number] Ashlee Doyle MD [facility], [facility] [address] [place] [address] 05/30/2020 12:46:46 05/30/2020 13:45:24 Benign hypertension 32763920 I10 seen ophth 06/2019hol d irbesartan 3 weeks to see if it will help with ST Allergic r hinitis 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 18576989 J30.1 stable on OTC meds Carotid ar petar stenosis 86942038 I65.29 last U/S 08/10/18 ., Gastroesop hageal reflux disease without esophagitis 611406753 K21.9 stable on diet control Hyperlipidemia 04669225 E78.5 last LDL 03/06/20 Osteopenia 925549633 M85 .80 per pt had DEXA 05/12/2017 Transient cerebral ischemia 044411122 G45.9 ASA 81 , no recurrence Idiopathic peripheral neuropathy 77349815 G60.9 per neurology notedeclin e meds Chronic sore throat 2754 21492 J31.2 Family his tory of diabetes mellitus 246335337 Z83.[address] A1c 11/19/19 Screening mammography 24 491113 Z12.31 per pt had mammogram 02/2019 Screening for malignant neoplasm of colon 019004936 Z12.11 last C scope 11/06/13 , good for 10 years Active or passive immunization 064441539 Z23 up to date [id number] Ashlee Doyle MD [facility], [facility] [address] [place] [address] 01/13/2021 16:32:19 01/13/2021 17:26:08 Localized swelling, mass and lump, neck 350595429 R22.1 Benign hypertension 1072 5009 I10 seen ophth 06/2019hol d irbesartan 3 weeks to see if it will help with ST Carotid ar petar stenosis 66401451 I65.29 last U/S 06/12/20 History of Malignant melanoma 021530668 Z85.820 sees derm on yearly basis Hyperlipidemia 99455653 E78.5 last LDL 03/06/20 Idiopathic peripheral neuropathy 50432701 G60.9 per neurology notedeclin e meds Osteopenia 505658699 M85 .80 per pt had DEXA 03/06/20 Right uppe r quadrant pain 794666942 R10.11 Screening mammography 24 823451 Z12.31 per pt had mammogram 06/20/20 Screening for malignant neoplasm of cervix 714938506 Z12.4 per pt had PAP 06/2017 Screening for malignant neoplasm of colon 628338325 Z12.11 last C scope 11/06/13 , good for 10 years Active or passive immunization 922119130 Z23 up to date [id number] Ashlee Doyle MD [place] [employer] [facility], [facility] [address] [place] [address] 01/27/2021 12:22:08 01/27/2021 13:08:34 Neoplasm of supraclavicular region 463706750 D49.89 Rt Hyponatremia 96832998 E8 7.1 no salt restrictio n [id number] Ashlee Doyle MD [facility], [facility] [address] [place] [address] 02/04/2021 11:46:37 02/04/2021 12:31:51 Swelling of upper limb 407377108 R22.31 Pain of ri ght shoulder joint 8379760651 0998551 M25.511 [id number] Ashlee Doyle MD [facility], [facility] [address] [place] [address] 06/23/2021 11:52:57 06/23/2021 12:46:00 Paroxysmal atrial fibrillation 606011515 I48.0 on amiodarone and eliquis Pneumonia 180545897 J18. 9 and sepsis inpt 05/11/21 after 3rd cycle CHOP Diffuse hi gh grade B-cell lymphoma 748711565 C83.30 S/P 4 cycles R-CHOP 04/2021 Hyperlipidemia 22283967 E78.5 last LDL 03/06/20 Allergic r hinitis 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 01674175 J30.1 stable on OTC meds Osteopenia 256334230 M85 .80 per pt had DEXA 03/06/20 Idiopathic peripheral neuropathy 30360203 G60.9 per neurology notedeclin e meds Gastroesop hageal reflux disease without esophagitis 114762480 K21.9 stable on diet control Screening mammography 24 013626 Z12.31 per pt had mammogram 06/20/20 Screening for malignant neoplasm of cervix 092421370 Z12.4 per pt had PAP 06/2017 Screening for malignant neoplasm of colon 901582963 Z12.11 last C scope 11/06/13 , good for 10 years Active or passive immunization 741638989 Z23 up to dateflu shot and COVID booster Adult heal th examination 649464048 Z00.01 last ophth eval 05/2021 Coronary arteriosclerosis 44747289 I25.10 asymptomat icmild per cardiology note Carotid ar petar stenosis 13224048 I65.29 last U/S 06/12/20 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 09207 I82.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 , asymptomat ic for now Benign hypertension 1072 5009 I10 seen ophth 06/2019goo d off irbesartan Age relate d macular degeneration 515979966 H35.30 sees ophth every 6 months Hemorrhoids 19228805 K64 .9 Left bundl e branch block 41637482 I44.7 asymptomat icseen cardiology 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.B0 less than 2 times a month [id number] Ashlee Doyle MD [facility] [facility], [employer] [address] [place] [address] 12/11/2021 12:26:26 12/23/2021 18:32:01 Benign hypertension 39044317 I10 seen ophth 11/2021good off irbesartan Carotid ar petar stenosis 89633783 I65.29 last U/S 06/12/20hav ing US 12/15/21 Coronary arteriosclerosis 55386945 I25.10 asymptomat icmild per cardiology note Hyperlipidemia 24875358 E78.5 last LDL 03/06/20car diology changed to rosuva 5 Idiopathic peripheral neuropathy 04842852 G60.9 per neurology notedeclin e meds 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, face AND/OR neck 92572691 C85.91 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.B0 less than 2 times a monthhavin g MRI of brain 12/15/21 Paroxysmal atrial fibrillation 530087496 I48.0 cardiology had holter ,cardiolog y stopped amiodarone and toprol Screening mammography 24 758098 Z12.31 per pt had mammogram 09/21/21 Screening for malignant neoplasm of cervix 279135530 Z12.4 per pt had PAP 06/2017 Screening for malignant neoplasm of colon 690622672 Z12.11 last C scope 11/06/13 , good for 10 years Active or passive immunization 259675154 Z23 up to dateflu shot and COVID booster History of SARS-CoV-2 29 00625889 15633031 Z86.16 tested +ve 10/2021 Long-term drug therapy 096037261 Z79.899 statin [id number] Ashlee Doyle MD [facility], [facility] [address] [place] [address] 01/28/2022 11:28:38 01/28/2022 12:24:45 Arthritis of hand 812876357 M13.849 labs @ ER (CBC,CMP,U ron acid and ESR) were NLX ray showed OA Benign hypertension 1072 5009 I10 seen ophth 11/2021good off irbesartan Carotid ar petar stenosis 98910052 I65.29 last U/S 07/13/21 Coronary arteriosclerosis 57807691 I25.10 asymptomat icmild per cardiology note Diffuse hi gh grade B-cell lymphoma 468242255 C83.30 S/P 4 cycles R-CHOP 04/2021 Hyperlipidemia 61732688 E78.5 last LDL 12/24/21card iology changed to rosuva 5 Idiopathic peripheral neuropathy 68893755 G60.9 per neurology notedeclin e medslast B12 08/11/21 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.B0 less than 2 times a monthhavin g MRI of brain 12/15/21 Paroxysmal atrial fibrillation 271878718 I48.0 cardiology had holter ,cardiolog y stopped amiodarone and toprol Screening mammography 24 033452 Z12.31 per pt had mammogram 09/21/21 Screening for malignant neoplasm of cervix 066907794 Z12.4 per pt had PAP 06/2017 Screening for malignant neoplasm of colon 126284345 Z12.11 last C scope 11/06/13 , good for 10 years Active or passive immunization 215964857 Z23 up to dateflu shot and COVID booster Allergic r hinitis 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 11657030 J30.1 stable on OTC meds [id number] Ashlee Doyle MD [facility], [facility] [address] [place] [address] 04/02/2022 12:41:21 04/02/2022 13:38:06 Acute urinary tract infection 550308205 N39.0 Low back pain 287133293 M54.50 Congestion of nasal sinus 08472621 R09.81 Benign hypertension 1072 5009 I10 seen ophth 11/2021good off irbesartan Screening mammography 24 288917 Z12.31 per pt had mammogram 09/21/21 Active or passive immunization 709527559 Z23 up to dateflu shot and COVID booster [id number] Ashlee Doyle MD [facility], [facility] [address] [place] [address] 07/09/2022 12:26:29 07/09/2022 13:18:33 Adult health examination 573372728 Z00.01 last ophth eval 05/2022 Benign hypertension 1072 5009 I10 seen ophth 11/2021good off irbesartan Allergic r hinitis 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 95441978 J30.1 stable on OTC meds Carotid ar petar stenosis 99231928 I65.29 last U/S 07/13/21 Coronary arteriosclerosis 09531349 I25.10 asymptomat icmild per cardiology note Diffuse hi gh grade B-cell lymphoma 179444000 C83.30 S/P 4 cycles R-CHOP 04/2021 Gastroesop hageal reflux disease without esophagitis 895830078 K21.9 stable on diet control History of Malignant melanoma 082460946 Z85.820 sees derm on yearly basis History of SARS-CoV-2 29 56142905 99775846 Z86.16 tested +ve 10/2021 Hyperlipidemia 89326800 E78.5 last LDL 12/24/21card iology changed to rosuva 5 Idiopathic peripheral neuropathy 58455027 G60.9 per neurology notedeclin e medslast B12 08/11/21 Left bundl e branch block 48377051 I44.7 asymptomat icseen cardiology Long-term drug therapy 538137458 Z79.899 statin Open-angle glaucoma of left eye 537431808 H40.1130 ophth eval 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.B0 less than 2 times a monthhavin g MRI of brain 12/15/21 Osteoarthritis 381503287 M19.90 tylenol 500 TID Osteopenia 432526738 M85 .80 per pt had DEXA 03/06/20 Paroxysmal atrial fibrillation 845143432 I48.0 cardiology had holter ,cardiolog y stopped amiodarone and toprol Focal onse t epileptic seizure 52594123 G40.109 no recurrence Screening mammography 24 553139 Z12.31 per pt had mammogram 09/21/21 Screening for malignant neoplasm of cervix 961289957 Z12.4 per pt had PAP 06/2017 Screening for malignant neoplasm of colon 888805323 Z12.11 last C scope 11/06/13 , good for 10 years Active or passive immunization 766021698 Z23 up to dateflu shot and COVID booster Increased frequency of urination 623550711 R35.0 Hemorrhoids 30093975 K64 .9 Congestion of nasal sinus 33202156 R09.81 [id number] Ashlee Doyle MD [facility] [address] [place] [address] 10/12/2022 12:17:42 10/12/2022 13:49:28 Benign hypertension 66689816 I10 seen ophth 11/2021good off irbesartan last EKG 06/28/22 Carotid ar petar stenosis 68684292 I65.29 last U/S 07/13/21 Coronary arteriosclerosis 50582062 I25.10 asymptomat icmild per cardiology note Gastroesop hageal reflux disease without esophagitis 339923704 K21.9 stable on diet control Hyperlipidemia 85637056 E78.5 last LDL 12/24/21card iology changed to rosuva 5 Paroxysmal atrial fibrillation 028949855 I48.0 cardiology had holter ,cardiolog y stopped amiodarone and toprolchad score 4-5 Diffuse hi gh grade B-cell lymphoma 974312858 C83.30 S/P 4 cycles R-CHOP 04/2021 Vitamin B deficiency 479 48499 E53.9 Screening mammography 24 558485 Z12.31 per pt had mammogram 09/21/21 Long-term drug therapy 654556195 Z79.899 statin Screening for malignant neoplasm of cervix 572203309 Z12.4 per pt had PAP 06/2017 Screening for malignant neoplasm of colon 435826160 Z12.11 last C scope 11/06/13 , good for 10 years Active or passive immunization 117874458 Z23 up to dateflu shot and COVID booster Mixed urin vini incontinence 411986106 N39.46 [id number] Ashlee Doyle MD [facility], [facility] [address] [place] [address] 01/26/2023 11:04:40 01/26/2023 11:53:47 Atrial fibrillation 80844733 I48.91 stablesees cardiology on reg basis Benign hypertension 1072 5009 I10 seen ophth 08/2022 per ptlast EKG 01/04/23 Osteoarthritis 314711961 M19.90 tylenol 500 TID Arthritis of hand 943744 005 M13.849 labs @ ER (CBC,CMP,U ron acid and ESR) were NLX ray showed OA Age relate d macular degeneration 675694148 H35.30 sees ophth every 6 months Carotid ar petar stenosis 59144447 I65.29 last U/S 07/13/21 Hyperlipidemia 45332955 E78.5 last LDL 12/24/21card iology changed to rosuva 5 Idiopathic peripheral neuropathy 76689539 G60.9 per neurology notedeclin e medslast B12 08/11/21 Long-term drug therapy 048969531 Z79.899 statin 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.B0 less than 2 times a monthhavin g MRI of brain 12/15/21 Hypomagnesemia 159235881 E83.42 Hyponatremia 53076067 E8 7.1 no salt restrictio n Screening mammography 24 822320 Z12.31 per pt had mammogram 11/08/22 Screening for malignant neoplasm of cervix 699596121 Z12.4 per pt had PAP 06/2017 Screening for malignant neoplasm of colon 678889643 Z12.11 last C scope 11/06/13 , good for 10 years Active or passive immunization 605912498 Z23 up to dateflu shot and COVID booster [id number] Ashlee Doyle MD [place] [employer] [facility], [facility] [address] [place] [address] 04/14/2023 11:58:27 04/14/2023 13:37:29 Cellulitis of lower leg 529996787 L03.119 Insomnia 927183114 G47.0 0 Benign hypertension 1072 5009 I10 seen ophth 08/2022 per ptlast EKG 01/04/23 Carotid ar petar stenosis 02945509 I65.29 last U/S 07/13/21 Paroxysmal atrial fibrillation 313053613 I48.0 cardiology had holter ,cardiolog y stopped amiodarone and toprolchad score 4-5anticoa gulation safty education Cough 06118054 R05.9 Hypomagnesemia 822504359 E83.42 Mixed hyperlipidemia 267 934745 E78.2 Long-term drug therapy 489762562 Z79.899 statin Screening mammography 24 231334 Z12.31 per pt had mammogram 11/08/22 Screening for malignant neoplasm of colon 310318803 Z12.11 last C scope 11/06/13 , good for 10 years Screening for malignant neoplasm of cervix 678523501 Z12.4 per pt had PAP 06/2017 Active or passive immunization 071375216 Z23 up to dateflu shot and COVID booster [id number] Ashlee Doyle MD [employer], [employer] [address] [place] [address] 06/16/2023 11:35:15 06/16/2023 13:03:22 Dysphagia 34054083 R13.10 Body mass index 20-24 - normal 052648336 Z68.20 down 10 LBs without trying Benign hypertension 1072 5009 I10 on the low side today , with light headinesss top amlodipine BP 2 weeksseen ophth 08/2022 per ptlast EKG 01/04/23 Dysuria 54231716 R30.0 Carotid ar petar stenosis 66124001 I65.29 last U/S 10/12/22 per pt Paroxysmal atrial fibrillation 495741672 I48.0 cardiology had holter ,anita score 4-5anticoa gulation safty education Screening mammography 24 957139 Z12.31 per pt had mammogram 11/08/22 Screening for malignant neoplasm of cervix 803075204 Z12.4 per pt had PAP 06/2017 Screening for malignant neoplasm of colon 888476758 Z12.11 last C scope 11/06/13 , good for 10 years Active or passive immunization 218644851 Z23 up to date Osteopenia 643280509 M85 .80 per pt had DEXA 11/08/22 Fatigue 47854894 R53.83 Hyperlipidemia 57420914 E78.5 last LDL 12/24/21card iology changed to rosuva 5 [id number] Ashlee Doyle MD [employer], [employer] [address] [place] [address] 06/27/2023 10:57:18 06/27/2023 12:29:38 Benign hypertension 30061675 I10 on the higher side @ homeadd 12.5 losartanBP 2 weeksseen ophth 08/2022 per ptlast EKG 01/04/23 Dysuria 75109150 R30.0 Hyponatremia 61183089 E8 7.1 no salt restrictio n Screening for malignant neoplasm of cervix 657305276 Z12.4 per pt had PAP 06/2017 Active or passive immunization 032469180 Z23 up to date Atrophic vaginitis 75633 000 N95.2 [id number] Ashlee Doyle MD [facility] [address] [place] [address] 08/24/2023 10:58:39 08/24/2023 12:05:07 Benign hypertension 18083343 I10 good controlon 12.5 losartanBP 2 weeksseen ophth 08/2023 per ptlast EKG 01/04/23 Carotid ar petar stenosis 51565104 I65.29 last U/S 10/12/22 per pt Coronary arteriosclerosis 04738237 I25.10 asymptomat icmild per cardiology note Gastroesop hageal reflux disease without esophagitis [id number] K21.9 GI add pantoprazo le 40 BID and carafate Hyponatremia 69523020 E8 7.1 no salt restrictio n Screening mammography 24 678515 Z12.31 per pt had mammogram 11/08/22 Screening for malignant neoplasm of cervix 751075910 Z12.4 per pt had PAP 06/2023 Screening for malignant neoplasm of colon 321588432 Z12.11 last C scope 11/06/13 , good for 10 years Active or passive immunization 533218364 Z23 up to date Adult heal th examination 157608454 Z00.01 last ophth eval 05/2023 Focal onse t epileptic seizure 78016926 G40.109 no recurrence Family his tory of diabetes mellitus 163986537 Z83.[address] A1c 05/13/23 Diffuse hi gh grade B-cell lymphoma 163820522 C83.30 S/P 4 cycles R-CHOP 04/2021 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 83688 I82.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 , asymptomat ic for now Age relate d macular degeneration 878135387 H35.30 sees ophth every 6 months Allergic r hinitis 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 99692830 J30.1 stable on OTC meds History of Malignant melanoma 201880034 Z85.820 sees derm on yearly basis History of SARS-CoV-2 29 62480644 61914450 Z86.16 tested +ve 10/2021 Hyperlipidemia 96380113 E78.5 last LDL 05/13/23car diology changed to rosuva 5 Hypomagnesemia 922325118 E83.42 last level 06/21/23 Idiopathic peripheral neuropathy 35452657 G60.9 per neurology notedeclin e medslast B12 06/21/23 Increased frequency of urination 333720973 R35.0 Insomnia 950054002 G47.0 0 better Left bundl e branch block 82477602 I44.7 asymptomat icseen cardiology Long-term drug therapy 860422412 Z79.899 statin , last A1c 05/11/23 Macrocytosis 460554617 D 75.89 last b12 06/27/23 Neoplasm o f supraclavicular region 562965480 D49.89 Rt 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.B0 less than 2 times a monthhavin g MRI of brain 12/15/21 Paroxysmal atrial fibrillation 068149940 I48.0 cardiology had holter ,anita score 4-5anticoa gulation safty education Transient cerebral ischemia 699539350 G45.9 ASA 81 , no recurrence Vitamin B deficiency 479 40858 E53.9 b12 06/21/23 Peripheral vascular disease 436093712 I73.9 per cardiology note 01/21/23 Advance di rective discussed with patient 308155861 Z71.89 education [id number] Ashlee Doyle MD [employer] [employer] [address] [place] [address] 11/23/2023 11:02:35 11/23/2023 12:01:52 Candidiasis of the esophagus 24721582 B37.81 had EGD 10/20/23 , had 2 rounds of fluconazol e Congestive heart failure 77628763 I50.9 last ECHO 10/2023 Anemia 836756736 D64.9 Paroxysmal atrial fibrillation 973375120 I48.0 cardiology had holter ,anita score 4-5anticoa gulation safty education Carotid ar petar stenosis 81109221 I65.29 last U/S 10/12/22 per pt Active or passive immunization 728557818 Z23 up to date Body mass index less than 20 046462267 Z68.1 [id number] Ashlee Doyle MD [employer] [employer] [address] [place] [address] 01/06/2024 12:05:09 01/06/2024 14:11:13 Mild memory disturbance 991033230 R41.3 mild , Age relate d macular degeneration 693862403 H35.30 sees ophth every 6 monthsneed help with ADLsform 4 pages done today Idiopathic peripheral neuropathy 68336931 G60.9 per neurology notedeclin e medslast B12 06/21/23 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.B0 less than 2 times a monthhavin g MRI of brain 12/15/21 Paroxysmal atrial fibrillation 903463753 I48.0 cardiology had holter ,anita score 4-5anticoa gulation safty education [id number] Ashlee Doyle MD [place] [employer] [employer] [address] [place] [address] 03/06/2024 14:59:36 03/06/2024 16:02:00 Anemia 011066795 D64.9 Benign hypertension 1072 5009 I10 good controlBP 2 weeksseen ophth 08/2023 per ptlast EKG 01/04/23 Cough 51051059 R05.9 Carotid ar petar stenosis 74663115 I65.29 last U/S 10/12/22 per pt Hyperlipidemia 18032484 E78.5 last LDL 05/13/23car diology changed to rosuva 5 Fall on same level 78995 003 W18.30XA one time , 2 months agoeducati on Screening mammography 24 472247 Z12.31 per pt had mammogram 12/30/23 Screening for malignant neoplasm of cervix 738208077 Z12.4 per pt had PAP 06/2023 Screening for malignant neoplasm of colon 840071186 Z12.11 last C scope 11/06/13 , good for 10 years Active or passive immunization 104403853 Z23 up to date Benign par oxysmal positional vertigo 796709972 H81.10 [id number] Ashlee Doyle MD [employer] [employer] [address] [place] [address] 04/18/2024 11:36:37 04/18/2024 12:38:39 Pneumonia 026931911 J18.9 LLL on CXR 04/05/24O2 is 93% Congestive heart failure 58690018 I50.9 last ECHO 10/2023 , EF 45%resolve d Paroxysmal atrial fibrillation 483713429 I48.0 cardiology had holter ,anita score 4-5anticoa gulation safty education Iron defic iency anemia 81016613 D50.9 Benign hypertension 1072 5009 I10 good controlBP 2 weeksseen ophth 08/2023 per ptlast EKG 01/04/23 Candidiasis of vagina 72 190128 B37.31 284212 Ashlee Doyle MD [place] [employer] [facility], [facility] [address] [place] [address] 06/18/2024 11:27:00 06/18/2024 12:45:24 Benign hypertension 52232349 I10 good controlBP 2 weeksseen ophth 08/2023 per ptlast EKG 06/27/23 Congestive heart failure 46737486 I50.9 last ECHO 10/2023 , EF 45%resolve d Dysphagia 26484075 R13.1 0 seen GI , having EGD Paroxysmal atrial fibrillation 877445608 I48.0 cardiology had holter ,anita score 4-5anticoa gulation safty education 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 I87.2 low ext Screening mammography 24 915829 Z12.31 per pt had mammogram 12/30/23 Screening for malignant neoplasm of cervix 065474735 Z12.4 per pt had PAP 06/2023 Screening for malignant neoplasm of colon 975959967 Z12.11 last C scope 11/06/13 , good for 10 years Active or passive immunization 406720398 Z23 up to date [id number] Ashlee Doyle MD [place] [employer] [facility], [facility] [address] [place] [address] 10/08/2024 11:08:50 10/08/2024 12:22:58 Benign hypertension 57921436 I10 good controlBP 2 weeksseen ophth 08/2024 per ptlast EKG 06/27/23 Carotid ar petar stenosis 18883542 I65.29 last U/S 10/12/22 per pt Hypomagnesemia 354031084 E83.42 last level 06/21/23 Hyperlipidemia 77612898 E78.5 last LDL 05/13/23car diology changed to rosuva 5 Idiopathic peripheral neuropathy 20653863 G60.9 per neurology notedeclin e medslast B12 06/21/23 Iron defic iency anemia 48773117 D50.9 Long-term drug therapy 760942866 Z79.899 statin , last A1c 02/2024 ,amiodaron e , scheduled for PFT 11/2023 per pt Congestive heart failure 95092547 I50.9 last ECHO 10/2023 , EF 45%resolve d Screening mammography 314660 Z12.31 per pt had mammogram 12/30/23 Screening for malignant neoplasm of cervix 286066797 Z12.4 per pt had PAP 06/2023 Screening for malignant neoplasm of colon 753479933 Z12.11 last C scope 11/06/13 , no polyp Active or passive immunization 619126911 Z23 up to date Unintentio nal weight loss 508094076 R63.4 Paroxysmal atrial fibrillation 085102332 I48.0 cardiology had holter ,anita score 4-5anticoa gulation safty education Health Concerns Section Related Observation LastModified by Organization Detai ls LastModified Time None Recorded Concern Status LastModified by Organization Details LastModified Time None Recorded Advance Directives Directive None Recorded Payers Encounter Date Sequence Insurance Name Policy Number Policy Tai Covered Member ID Tai Member ID Guarantor Name 01/06/2024 2 [place] ([place]) 104 Agustina Cordova [id number] Agustina Cordova 01/06/2024 1 [place]MED[place]ARE[place] Agustina Cordova [id number] Agustina Cordova 03/06/2024 2 [place] 104 Agustina Cordova [id number] Agustina Cordova 03/06/2024 1 [place] Agustina Cordova [id number] 1 [id number] Agustina Cordova 04/18/2024 2 [place] 104 Agustina Cordova [id number] Agustina Cordova 04/18/2024 1 [place] Agustina Cordova [id number] 1 [id number] Agustina Cordova 06/18/2024 2 [place] 104 Agustina Cordova [id number] Agustina Cordova 06/18/2024 1 [place] Agustina Cordova [id number] 1 [id number] Agustina Cordova 10/08/2024 2 [place] ([place]) 104 Agustina Cordova [id number] Agustina Cordova 10/08/2024 1 [place] Agustina Cordova [id number] 1 [id number] Agustina Cordova Notes Date Note Type [...] help with ADLs Ashlee Doyle MD [address], [place], [address], [facility] 01/06/2024 13:47:54 03/06/2024 text/html Hypertension F/UReported bypatient.Medications: [...] visit1 seen cardiology , wants to start vishnu Doyle MD [address], [place], [address], [facility] 03/06/2024 15:56:45 04/18/2024 text/html Hospitalization Contact RecordReported [...] , Better now Ashlee Doyle MD [address] [facility] [address], [place], [address], [facility] 04/18/2024 12:33:14 06/18/2024 text/html Hypertension F/UReported bypatient.Medications: taking medications as directed; no side effects from medication Lifestyle:regular exercise; limiting/avoiding salt; compliant with low salt diet Associated Symptoms:no dizziness; no lightheadedness; no chest pain; no shortness of breath; no palpitations; no edema; no calf pain with exertion; no headache Ashlee Doyle MD [address] [facility] [address], [place], [address], [facility] 06/18/2024 12:41:56 10/08/2024 text/html Hypertension F/UReported bypatient.Medications: taking medications as directed; no side effects from medication Lifestyle:regular exercise; limiting/avoiding salt; compliant with low salt diet Associated Symptoms:no dizziness; no lightheadedness; no chest pain; no shortness of breath; no palpitations; no edema; no calf pain with exertion; no headache Ashlee Doyle MD [address] [facility] [address], [place], [address], [facility] 10/08/2024 12:13:35 OBGyn Episode No OBEpisode recorded.
--- OUTSIDE RECORDS SUMMARY | 2025-01-21 12:37 | XMS_ITS | Encounter Summary ---
Author Organization [facility] Address [address] [place] [address] Care Team Providers Care Sheetmetal Patternmaker Name Role Phone Olivia Foss MD Primary Care Provider Unavailable Encounter Details Date Type Department Care Team (Late st Contact Info) Description 02/07/[address] 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 Gender Identity Not on file Sexual Orientation Not on file documented as of this encounter Plan of Treatment Not on file documented as of this encounter Procedures Procedure Name Priority Date/Time Associated Diagnosis Comments DERMATOPATHOLOGY Routine 02/05/2019 12:0 0 AM CDT documented in this encounter Results * DERMATOPATHOLOGY (02/05/2019 12:00 AM CDT) Case Report Dermatopathology Report Case: [id number] Authorizing Provider: Olivia Fernandez MD Collected: 02/05/2019 12:00 AM Pathologist: Oanh Agrawal MD Received: 02/07/2019 08:16 AM Specimens: A) - Skin, right thigh B) - Skin, left FA 9 10:54 AM CDT DERMATOPATHOLOGY LABORATORY Final Diagnosis Specimen A. SKIN, right thigh: INTRADERMAL MELANOCYTIC NEVUS (D22.71) Specimen B. 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 B: R/O SCC, non-healing. 10:54 AM [facility] DERMATOPATHOLOGY LABORATORY Gross Description Specimen A: Received is one formalin filled container labeled with the patient's name and designated right thigh. The specimen consists of a shave measuring [id number]. Jar 0. Specimen B: Received is one formalin filled container labeled with the patient's name and designated left FA. The specimen consists of a shave (2 pieces) measuring [id number] & 3e3k7vk. Jar 0. 10:54 AM [facility] DERMATOPATHOLOGY LABORATORY Microscopic Description Specimen A. SKIN, right thigh: There are nests of cytologically bland melanocytes within the dermis that mature with depth. Specimen B. SKIN, left FA: The epidermis shows parakeratosis, full thickness disorderly maturation of keratinocytes, mitoses at different levels, and dyskeratotic cells. This lesion is present at the margin of the specimen. 10:54 AM [facility] DERMATOPATHOLOGY LABORATORY Disclaimer An external and internal positive and negative controls are appropriate for the histochemical, immunohistochemical and immunofluorescence stain(s) in this case (if any), except where stated explicitly. The performance characteristics of the stain(s) cited in this report were developed and its performance characteristic determined by the Dermatopathology Laboratory at [facility], directed by Dr. Kwame Agrawal. These tests need not be, and therefore are not, approved by the [place] Food and Drug Administration. The tests are used for clinical purposes. Billing Codes Specimen Charges Stain Charges 63570 42186 1 1 9 10:54 AM T DERMATOPATHOLOGY LABORATORY Embedded Images 10:54 AM [facility] DERMATOPATHOLOGY LABORATORY Pathology/Cytology TISSUE SPECIMEN FROM SKIN / Unknown 02/05/2019 02/07/2019 8:16 AM CDT Miscellaneous samples (specimen) TISSUE SPECIMEN FROM SKIN / Unknown 02/05/2019 02/07/2019 8:16 AM CDT Olivia Fernandez MD LAB - PATHOLOGY/CYTOLOGY OR DERABLES Final Result DERMATOPATHOLOGY LABORATORY [facility] - Department of Dermatology [address] [place] [address], [address] [place] [address], [facility] [phone] documented in this encounter Visit Diagnoses Not on filedocumented in this encounter Care Teams Sheetmetal Patternmaker Relationship Specialty Start Date End Date Olivia Foss MD PCP - General 02/05/19 documented as of this encounter
--- OUTSIDE RECORDS SUMMARY | 2025-01-21 12:37 | XMS_ITS | Clinical Summary ---
Author Organization [facility] Address [address] [facility] [place] [address] Care Team Providers Care Electric Range Preparer Name Role Phone Olivia Foss MD Primary Care Provider Unavailable Source Comments [facility],non-owned Affiliates and Associated Physician Practices is amultiple site organization consisting of ambulatory clinics and hospital sitesin [place], [place], [place] and [place]. This disclosure is being madepursuant to the Care Everywhere program and may not contain all information available regarding this patient. 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
--- OUTSIDE RECORDS SUMMARY | 2025-01-21 12:37 | XMS_ITS | Encounter Summary ---
Author Organization [facility] Address [address] [place] [address] Care Team Providers Care Legal Aid Name Role Phone Olivia Foss MD Primary Care Provider Unavailable Encounter Details Date Type Department Care Team (Late st Contact Info) Description 02/19/2020 Lab Requisition [facility] DermPath Lab [address] 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 Gender Identity Not on file Sexual Orientation Not on file documented as of this encounter Plan of Treatment Not on file documented as of this encounter Procedures Procedure Name Priority Date/Time Associated Diagnosis Comments DERMATOPATHOLOGY Routine 02/18/2020 12:0 0 AM CDT documented in this encounter Results * DERMATOPATHOLOGY (02/18/2020 12:00 AM CDT) Case Report Dermatopathology Report Case: [id number] Authorizing Provider: Yumiko Dykes MD Collected: 02/18/2020 12:00 AM Ordering Location: [facility] DermPath Lab Received: 02/19/2020 08:29 AM [...] specimen consists of a shave biopsy measuring [id number], bisected. Jar 0+. 0 2:31 PM CDT [...] purposes. Billing Codes Specimen Charges Stain Charges 33770 1 0 2:31 PM CDT DERMATOPATHOLOGY LABORATORY Embedded Images 0 2:31 PM CDT DERMATOPATHOLOGY LABORATORY Pathology/Cytolog y TISSUE SPECIMEN FROM SKIN / Unknown 02/18/2020 02/19/2020 8:29 AM CDT us Yumiko Dykes MD LAB - PATHOLOGY/CYTOLOGY ORD ERABLES Final Result DERMATOPATHOLOGY LABORATORY [facility] - Department of Dermatology [facility] [address], [facility] [phone] documented in this encounter Visit Diagnoses Not on filedocumented in this encounter Care Teams Legal Aid Relationship Specialty Start Date End Date Olivia Foss MD PCP - General 02/05/19 documented as of this encounter
--- OUTSIDE RECORDS SUMMARY | 2025-01-21 12:37 | XMS_ITS | Encounter Summary ---
Author Organization [facility] Address [address] [facility] [place] [address] Care Team Providers Care Supervisor Shellfish Farming Name Role Phone Olivia Foss MD Primary Care Provider Unavailable Encounter Details Date Type Department Care Team (Late st Contact Info) Description 04/09/2019 Lab Requisition [facility] Care DermPath Lab [address] [facility] [place] [address] Olivia Fernandez MD [address] [facility] [address] [place] [address] Social History Tobacco Use Types Packs/Day Years Used Date Smoking Tobacco: Never Assessed Comments Unknown Sex and Gender Information Value Date Recorded Sex Assigned at Not on file 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 Gender Identity Not on file Sexual Orientation Not on file documented as of this encounter Plan of Treatment Not on file documented as of this encounter Procedures Procedure Name Priority Date/Time Associated Diagnosis Comments DERMATOPATHOLOGY Routine 04/06/2019 12:0 0 AM CDT documented in this encounter Results * DERMATOPATHOLOGY (04/06/2019 12:00 AM CDT) Case Report Dermatopathology Report Case: [id number] Authorizing Provider: Olivia Fernandez MD Collected: 04/06/2019 12:00 AM Pathologist: Oanh Agrawal MD Received: 04/09/2019 06:40 AM Specimen: Skin, left fa 9 3:47 PM CDT DERMATOPATHOLOGY LABORATORY Final Diagnosis Specimen A. 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 Previous Bx: [id number]. 3:47 PM CDT DERMATOPATHOLOGY LABORATORY Gross Description Specimen A: Received is one formalin filled container labeled with the patient's name and designated left fa. The specimen consists of a non-oriented ellipse of skin measuring [id number]. The epidermal surface is unremarkable. The margin [...] by the Dermatopathology Laboratory at [facility], directed by Dr. Kwame Agrawal. These tests need not be, and therefore are not, approved by the [place] Food and Drug Administration. The tests are used for clinical purposes. Billing Codes Specimen Charges Stain Charges 10740 1 3:47 PM CDT DERMATOPATHOLOGY LABORATORY Embedded Images 3:47 PM CDT DERMATOPATHOLOGY LABORATORY Pathology/Cytolog y TISSUE SPECIMEN FROM SKIN / Unknown 04/06/2019 04/09/2019 6:40 AM CDT Olivia Fernandez MD LAB - PATHOLOGY/CYTOLOGY OR DERABLES Final Result DERMATOPATHOLOGY LABORATORY [facility] - Department of Dermatology [address] [facility], 5th [place] [address], [facility] [phone] documented in this encounter Visit Diagnoses Not on filedocumented in this encounter Care Teams Supervisor [employer] Farm[employer] Relationship Specialty Start Date End Date Olivia Foss MD PCP - General 02/05/19 documented as of this encounter
--- OUTSIDE RECORDS SUMMARY | 2025-01-21 12:37 | XMS_ITS | Encounter Summary ---
Author Organization [facility] Address [address] [place] [address] Care Team Providers Care Sleeping Room Cleaner Name Role Phone Ashlee Doyle MD Primary Care Provider [phone] Randi Barney MD Unavailable Miscellaneous, Not In File Unavailable Unava ilable Sheryl Latham MD Unavailable [phone] Jonh Junior MD Primary Care Provide r Ashlee Doyle MD Primary Care Provider [phone] Jonh Junior MD Unavailable Encounter Details Date Type Department Care Team (Late st Contact Info) Description 03/31/2021 Telephone [facility] Radiology [facility] [address] [place] [address] Kindra Mir, RT Social History Tobacco Use Types Packs/Day Years Used Date Smoking Tobacco: Never Smokeless Tobacco: Never Alcohol Use Standard Drinks/Week Comments Yes 0 (1 standard drink = 0.6 oz pur e alcohol) Comments No Sex and Gender Information Value Date Recorded Sex Assigned at Not on file Legal Sex Female 2:10 AM 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 Gender Identity Not on file Sexual [...] documented as of this encounter Care Teams Sleeping Room Cleaner Relationship Specialty Start Date End Date Ashlee Doyle MD [address] [place] [address] PCP - General 02/09/18 08/24/23 Jonh Junior MD PCP - General Cardiology 08/25/23 09/04/23 Ashlee Doyle MD [address] [place] [address] PCP - General Internal Medicine 09/05/23 Randi Barney MD [address] [place] [address] Referring Physician Cardiology 03/12/21 08/24/23 Miscellaneous, Not In File 03/24/21 Sheryl Latham MD Medical Oncologist/Professor Of Biochemistry Medical Oncology 05/12/21 Jonh Junior MD Referring Physician Cardiology 09/05/23 documented as of this encounter
--- OUTSIDE RECORDS SUMMARY | 2025-01-21 12:37 | XMS_ITS | Clinical Summary ---
Author Organization [facility] Address [address] [place] [address] Care Team Providers Care Bilingual Executive Assistant Name Role Phone Ashlee Doyle MD Primary Care Provider [phone] Melvin Pedraza MD Unavailable Allergies Active Allergy [...] exertion 06/06/2018 Coronary artery disease invo lving [place] coronary artery of [place] heart without angina pectoris 06/06/2018 Carotid bruit 06/06/2018 Carotid artery stenosis 08/29/2017 Osteoarthrosis 05/10/2017 Left bundle branch block 05/10/2017 Partial seizure with impaire d consciousness ([facility]) 06/21/2016 Overview (02/25/2021): Partial seizure with impaired consciousness Transient cerebral ischemia 05/04/2016 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 Osteopenia 12/10/2013 Overview (02/25/2021): Osteopenia Mitral valve prolapse 12/10/2013 Overview (02/25/2021): Mitral valve prolapse Gastroesophageal reflux disease 12/10/2013 Overview (02/25/2021): GERD (gastroesophageal reflux disease) Degeneration of intervertebral disc of cervical region 12/10/2013 Overview (02/25/2021): DDD (degenerative disc disease), cervical Essential hypertension 12/10/2013 Overview (02/25/2021): Hypertension Arnold-Chiari malformation ([facility]) Overview (02/25/2021): Arnold-Chiari malformation Thrombosed external hemorrhoids 09/17/2011 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 Hyperlipidemia 07/24/2010 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 Immunizations Immunization Administration Dates Next Due Fluzone High Dose - >Age 65 (Prefilled Syringe) 06/04/2017,05/21/2016,06/06/2015 Hepatitis A (Generic) 01/30/2008,01/30/2008,05/20 Hepatitis B (Generic: Adult) 01/30/2008,07/07/20 07,06/05/2007 Pneumococcal (Pneumovax 23) 05/21/2009, 9 Pneumococcal (Prevnar 13) 02/20/2015 Shingrix 03/29/2019 Td 06/19/2016 Tdap (Generic) 11/10/2012 Zoster (Zostavax) 03300 Unt/0.65Ml 03/29,09/21/2018,09/19/2013,2009 Family History Medical History Relation [...] on file Legal Sex Female 1:30 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 Gender Identity Not on file Sexual Orientation Not on file Last Filed Vital Signs Vital Sign Reading Time Taken Comments Blood Pressure 140/62 08/21/2020 1:18 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 APPRENTICE Pulse 97 08/21/2020 1:18 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 APPRENTICE Temperature - - Respiratory Rate - - Oxygen Saturation - - Inhaled Oxygen Concentration - - Weight 67.5 kg (148 lb 12.8 oz) 08/21/2020 1:18 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 APPRENTICE Height 165.1 cm (5' 5 ) 08/21/2020 1:18 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 APPRENTICE Body Mass Index 24.76 08/21/2020 1:18 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 APPRENTICE Plan of Treatment Health Maintenance Due Date [...] age to complete this topic Insurance MEDICARE [facility] MEDICARE [facility] Care Teams Bilingual Executive Assistant Relationship Specialty Start Date End Date Ashlee Doyle MD PCP - General INTERNAL MEDICINE 02/18/20 Melvin Pedraza MD [address] [address] Referring Physician VASCULAR SURGERY 02/18/20
--- NOTE | 2025-01-21 13:28 | PC.NURSE ---
Pt requesting medication for hip pain, pt states I was here 4-5 days ago I didn't take prescription for pain. Now I want it, my pain moved to right hip
--- OUTSIDE RECORDS SUMMARY | 2025-01-21 14:19 | XMS_ITS | Referral Summary ---
Author Organization [facility] Address [address] [place] [address] Care Team Providers Care Glass Lined Tank Repairer Name Role Phone Miscellaneous, Not In File Unavailable Unava ilable Sheryl Latham MD Unavailable [phone] Ashlee Doyle MD Primary Care Provider [phone] Jonh Junior MD Unavailable Encounters Date Type Department Care Team Description 01/11/2025 Telephone [facility] Cardiology [facility] 8th [place] [address] [place] [address] Jonh Junior MD 11/20/2024 Results Follow-Up [facility] [address] [place] [address] India Contreras DO 11/15/2024 1:27 PM DRUPAL PHP DEVELOPER - 11/15/2024 11:59 PM DRUPAL PHP DEVELOPER Hospital Encounter [facility] [address] [place] [address] Vaginal irritation Discharge Disposition: Discharge to home or self care 11/15/2024 1:00 PM DRUPAL PHP DEVELOPER Office Visit [facility] [address] [place] [address] India Contreras DO Encounter for annual routine gynecological examination (Primary Dx); Vaginal irritation; Vaginal atrophy 10/30/2024 10:00 AM DRUPAL PHP DEVELOPER Office Visit [facility] Gastroenterology [facility] 12th [place] [address] [place] [address] Dallas Weston MD Esophageal dysphagia (Primary Dx); [...] 5 mg tabletIndications :Coronary artery disease involving [place] coronary artery of [place] heart without angina pectoris Take 1 tablet [...] stable from prior notes from [facility] - Fundus exam and photos appear stable [...] should continue to monitor with her general foundry worker Assessment & Plan (04/01/2022 3:54 PM CDT): [...] (ERM) peel right eye (OD) 2007 at [facility]. Asked patient to bring notes or forward prior to next visit. Follows with Dr. Izaguirre at [facility]. Will have second opinion with [facility] next available per patient request. CVA (cerebral vascular accident) 01/13/2022 History of severe acute resp iratory syndrome coronavirus 2 (SARS-CoV-2) disease 12/11/2021 On dedicated intermodal truck driver drug therapy 12/11/2021 Bradycardia 12/04/2021 Sinus pause [...] exertion 06/06/2018 Coronary artery disease invo lving [place] coronary artery of [place] heart without angina pectoris 06/06/2018 Assessment & [...] Immunization Administration Dates Next Due COVID-19 mRNA (Affinergy) 0.3 m L (30 mcg) vaccine (12 [...] on file Legal Sex Female 2:10 AM DRUPAL PHP DEVELOPER Gender Identity Not on file Sexual Orientation Not on file Occupation Industry Job Start Date Job End Date retired Not on file Not on file Not on file Last Filed Vital Signs Vital Sign Reading Time Taken Comments Blood Pressure 120/60 11/15/2024 12:54 PM DRUPAL PHP DEVELOPER Pulse 72 10/30/2024 9:57 AM DRUPAL PHP DEVELOPER Temperature 36.2 C (97.1 F) 10/30/2024 9:57 AM DRUPAL PHP DEVELOPER Respiratory Rate 16 08/30/2024 10:38 AM DRUPAL PHP DEVELOPER Oxygen Saturation 97% 08/30/2024 10:38 AM DRUPAL PHP DEVELOPER Inhaled Oxygen Concentration - - Weight 54.9 kg (121 lb) 11/15/2024 12:54 PM DRUPAL PHP DEVELOPER Height 165.1 cm (5' 5 ) 11/15/2024 12:54 PM DRUPAL PHP DEVELOPER Body Mass Index 20.14 11/15/2024 12:54 PM DRUPAL PHP DEVELOPER Plan of Treatment Not on file Procedures Procedure Name Priority Date/Time Associated Diagnosis Comments VAGINITIS PANEL Routine 11/15/2024 3:37 PM DRUPAL PHP DEVELOPER Vaginal irritation BONE MINERAL DENSITY 04/05/2017 from Last 3 Months or Most Recently Relevant to Health Maintenance Results * Vaginitis panel Vaginal (11/15/2024 3:37 PM DRUPAL PHP DEVELOPER) Aimee DNA probe Not Detected Not Detected Comment:Testing performed by : [facility], [address] [place] [address]., [id number] Gardnerella DNA probe Not Detected Not Detected BENJAMIN Comment:Testing performed by : [facility], [address] [place] [address]., [id number] Trichomonas DNA probe Not Detected Not Detected BENJAMIN Comment: Interpretive Data Testing performed by [facility] via Affirm VPIII Microbial Identification [...] last revised on 2020. Testing performed by: [facility], [address] [place] [address]., [id number] Vaginal 11/15/2024 3:37 PM DRUPAL PHP DEVELOPER 11/16/2024 1:52 PM DRUPAL PHP DEVELOPER India Contreras DO LAB MICROBIOLOGY - GENE RAL ORDERABLES Final Result BENJAMIN [address] [address] [place] [address] * BONE MINERAL DENSITY (04/05/2017) Anatomical Region Laterality Modality Radiographic Christi ging Narrative 04/05/2017 Ordered by an unspecified provider. Historical Provider MD GRIGGS DXA PROCEDURES Final Result from Last 3 Months or Most Recently Relevant to Health Maintenance Insurance [facility]ICARE [facility] MEDICARE MEDICARE ANTHEM ACCESS CHOICE ANTHEM ACCESS MEDICARE [facility] Advance Directives For more information, please contact: [phone] * Full Code (Latest Code Status on [...] 11:35 PM 02/20/2021 8:13 PM Care Teams Glass Lined Tank Repairer Relationship Specialty Start Date End Date Ashlee Doyle MD [address] [facility] [address] [place] [address] PCP - General Internal Medicine 09/05/23 Miscellaneous, Not In File 03/24/21 Sheryl Latham MD Medical Oncologist/Crm Marketing Executive Medical Oncology 05/12/21 Jonh Junior MD [address] [place] [address] Referring Physician Cardiology 09/05/23
--- OUTSIDE RECORDS SUMMARY | 2025-01-21 14:19 | XMS_ITS | CONTINUITY OF CARE DOCUMENT ---
Author Name taylor vazquez Address Unknown Organization [facility] Address [address] [place] [address] [address] [place] [address] Phone [phone] Care Team Providers Care Truck Headlight Assembler Name Role Phone Gilmar CRUZ, Juliana Unavailable Juliana Schafer MD Unavailable [phone] INSURANCE PROVIDERS Payer name Policy type / Coverage type [place] red democrat ID [facility] [id number] [place] MEDIC[place] Medicare [id number]
--- OUTSIDE RECORDS SUMMARY | 2025-01-21 14:20 | XMS_ITS | Encounter Summary ---
Author Organization [facility] Address [address] [facility] [place] [address] Care Team Providers Care Studio Technician Video Operator Name Role Phone Olivia Foss MD Primary Care Provider Unavailable Encounter Details Date Type Department Care Team (Late st Contact Info) Description 02/19/2020 Lab Requisition [facility] DermPath Lab [address] [facility], [place] [address] Yumiko Dykes MD [address] [facility] 3 [place] [address] Social History Tobacco Use Types Packs/Day Years Used Date Smoking Tobacco: Never Assessed Comments Unknown Sex and Gender Information Value Date Recorded Sex Assigned at Not on file Legal Sex Female 6:20 AM POLICY SERVICES 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 Gender Identity Not on file Sexual Orientation Not on file documented as of this encounter Plan of Treatment Not on file documented as of this encounter Procedures Procedure Name Priority Date/Time Associated Diagnosis Comments DERMATOPATHOLOGY Routine 02/18/2020 12:0 0 AM CDT documented in this encounter Results * DERMATOPATHOLOGY (02/18/2020 12:00 AM CDT) Case Report Dermatopathology Report Case: [id number] Authorizing Provider: Yumiko Dykes MD Collected: 02/18/2020 12:00 AM Ordering Location: [facility] DermPath Lab Received: 02/19/2020 08:29 AM [...] specimen consists of a shave biopsy measuring [id number], bisected. Jar 0+. 0 2:31 PM CDT [...] characteristic determined by the Dermatopathology Laboratory at [facility], directed by Dr. Kwame Agrawal. These tests need not be, and therefore are not, approved by the [place] Food and Drug Administration. The tests are used for clinical purposes. Billing Codes Specimen Charges Stain Charges 69614 1 0 2:31 PM CDT DERMATOPATHOLOGY LABORATORY Embedded Images 0 2:31 PM CDT DERMATOPATHOLOGY LABORATORY Pathology/Cytolog y TISSUE SPECIMEN FROM SKIN / Unknown 02/18/2020 02/19/2020 8:29 AM CDT us Yumiko Dykes MD LAB - PATHOLOGY/CYTOLOGY ORD ERABLES Final Result DERMATOPATHOLOGY LABORATORY [facility] - Department of Dermatology [facility]/[address] [address], [facility] [phone] documented in this encounter Visit Diagnoses Not on filedocumented in this encounter Care Teams Studio Technician Video Operator Relationship Specialty Start Date End Date Olivia Foss MD PCP - General 02/05/19 documented as of this encounter
--- OUTSIDE RECORDS SUMMARY | 2025-01-21 14:20 | XMS_ITS ---
Author Organization [facility] Address [address] [place] [address] Care Team Providers Care Acetylene Gas Compressor Name Role Phone Miscellaneous, Not In File Unavailable Unava ilable Sheryl Latham MD Unavailable Ashlee Doyle MD Primary Care Provider [phone] Jonh Junior MD Unavailable Active Problems Problem [...] stable from prior notes from [facility] - Fundus exam and photos appear stable [...] Patient should continue to monitor with her lithographic general worker Assessment & Plan (04/01/2022 3:54 PM [...] (ERM) peel right eye (OD) 2007 at [facility]. Asked patient to bring notes or forward prior to next visit. Follows with Dr. Izaguirre at [facility]. Will have second opinion with [facility] next available per patient request. CVA (cerebral vascular accident) 01/13/2022 History of severe acute resp iratory syndrome coronavirus 2 (SARS-CoV-2) disease 12/11/2021 On termite control servicer drug therapy 12/11/2021 Bradycardia 12/04/2021 Sinus pause [...] exertion 06/06/2018 Coronary artery disease invo lving [place] coronary artery of [place] heart without angina pectoris 06/06/2018 Assessment & [...]
--- OUTSIDE RECORDS SUMMARY | 2025-01-21 14:20 | XMS_ITS | Clinical Summary ---
Author Organization [facility] Address [address] [place] [address] Care Team Providers Care Lens Mold Setter Name Role Phone Miscellaneous, Not In File Unavailable Unava ilable Sheryl Latham MD Unavailable [phone] Ashlee Doyle MD Primary Care Provider [phone] Jonh Junior MD Unavailable Allergies Active Allergy [...] 5 mg tabletIndications :Coronary artery disease involving [place] coronary artery of [place] heart without angina pectoris Take 1 [...] stable from prior notes from [facility] - Fundus exam and photos appear stable [...] Patient should continue to monitor with her vice president & general manager brand [place] Assessment & Plan (04/01/2022 3:54 PM CDT): [...] (ERM) peel right eye (OD) 2007 at [facility]. Asked patient to bring notes or forward prior to next visit. Follows with Dr. Izaguirre at [facility]. Will have second opinion with [facility] next available per patient request. CVA (cerebral vascular accident) 01/13/2022 History of severe acute resp iratory syndrome coronavirus 2 (SARS-CoV-2) disease 12/11/2021 On superintendent terminal drug therapy 12/11/2021 Bradycardia 12/04/2021 Sinus [...] exertion 06/06/2018 Coronary artery disease invo lving [place] coronary artery of [place] heart without angina pectoris 06/06/2018 Assessment [...] Type Department Care Team Description 01/11/2025 Telephone [facility] Cardiology [address] [facility] 8th [place] [address] [place] [address] Jonh Junior MD 11/20/2024 Results Follow-Up [address] [address] India Contreras DO 11/15/2024 1:27 PM SOCCER COACH - 11/15/2024 11:59 PM SOCCER COACH Hospital Encounter [facility] [address] [place] [address] Vaginal irritation Discharge Disposition: Discharge to home or self care 11/15/2024 1:00 PM SOCCER COACH Office Visit [facility] [address] [place] [address] India Contreras DO Encounter for annual routine gynecological examination (Primary Dx); Vaginal irritation; Vaginal atrophy 10/30/2024 10:00 AM SOCCER COACH Office Visit [facility] Gastroenterology [facility] [facility] 12th [place] [address] [place] [address] Dallas Weston MD Esophageal dysphagia (Primary Dx); Achalasia; Dyspepsia; Aimee infection, esophageal (HCC) from Last 3 Months Immunizations Immunization Administration Dates Next Due COVID-19 mRNA (HouseCall) 0.3 m L (30 mcg) vaccine (12 [...] on file Legal Sex Female 2:10 AM SOCCER COACH Gender Identity Not on file Sexual Orientation [...] Comments Blood Pressure 120/60 11/15/2024 12:54 PM SOCCER COACH Pulse 72 10/30/2024 9:57 AM SOCCER COACH Temperature 36.2 C (97.1 F) 10/30/2024 9:57 AM SOCCER COACH Respiratory Rate 16 08/30/2024 10:38 AM SOCCER COACH Oxygen Saturation 97% 08/30/2024 10:38 AM SOCCER COACH Inhaled Oxygen Concentration - - Weight 54.9 kg (121 lb) 11/15/2024 12:54 PM SOCCER COACH Height 165.1 cm (5' 5 ) 11/15/2024 12:54 PM SOCCER COACH Body Mass Index 20.14 11/15/2024 12:54 PM SOCCER COACH Plan of Treatment Health Maintenance Due Date [...] Comments VAGINITIS PANEL Routine 11/15/2024 3:37 PM SOCCER COACH Vaginal irritation BONE MINERAL DENSITY 04/05/2017 from Last 3 Months or Most Recently Relevant to Health Maintenance Results * Vaginitis panel Vaginal (11/15/2024 3:37 PM SOCCER COACH) Aimee DNA probe Not Detected Not Detected Comment:Testing performed by : [facility], [address] [place] [address]., [id number] Gardnerella DNA probe Not Detected Not Detected BENJAMIN Comment:Testing performed by : [facility], [address] [place] [address]., [id number] Trichomonas DNA probe Not Detected Not Detected BENJAMIN Comment: Interpretive Data Testing performed by [facility] via Affirm VPIII Microbial Identification Test, a [...] last revised on 2020. Testing performed by: [facility], [address] [place] [address]., [address] Vaginal 11/15/2024 3:37 PM SOCCER COACH 11/16/2024 1:52 PM SOCCER COACH India Contreras DO LAB MICROBIOLOGY - GENE RAL ORDERABLES Final Result [facility] [place] [address] Department [place] [address] * BONE MINERAL DENSITY (04/05/2017) Anatomical Region Laterality Modality Radiographic Christi ging Narrative 04/05/2017 Ordered by an unspecified provider. us Historical Provider MD GRIGGS DXA PROCEDURES Final Result from Last 3 Months or Most Recently Relevant to Health Maintenance Insurance MEDICARE [facility] MEDICARE MEDICARE ANTHEM ACCESS CHOICE ANTHEM ACCESS MEDICARE [facility] Advance Directives For more information, please contact: [phone] * Full Code (Latest Code Status on [...] 11:35 PM 02/20/2021 8:13 PM Care Teams Lens Mold Setter Relationship Specialty Start Date End Date Ashlee Doyle MD [address] [facility] [address] [place] [address] PCP - General Internal Medicine 09/05/23 Miscellaneous, Not In File 03/24/21 Sheryl Latham MD Medical Oncologist/Global Product Manager Medical Oncology 05/12/21 Jonh Junior MD [address] [facility] [address] [place] [address] Referring Physician Cardiology 09/05/23
--- OUTSIDE RECORDS SUMMARY | 2025-01-21 14:20 | XMS_ITS | Clinical Summary ---
Author Organization [facility] Address [address] [place] [address] Care Team Providers Care Market Maker Name Role Phone Olivia Foss MD Primary Care Provider Unavailable Source Comments [facility],non-owned Affiliates and Associated Physician Practices is amultiple site organization consisting of ambulatory clinics and hospital sitesin [place], [place], [place] and [place]. This disclosure is being madepursuant to the Care Everywhere program and may not contain all information available regarding this patient. Last updated 18.[facility] Social History Tobacco Use Types Packs/Day Years Used Date Smoking Tobacco: Never Assessed Comments Unknown Sex and Gender Information Value Date Recorded Sex Assigned at Not on file Legal Sex Female 6:20 AM COMMITTEE MEMBER Gender Identity Not on file Sexual Orientation [...] to complete this topic Insurance MEDICARE [facility] Member Subscriber Plan / Payer (Ef fective 2001-Present) Name:Chiquis Cordova Relation to Subscriber:Self Name:CHIQUIS CORDOVA Payer ID:[id number] (NAIC) Group ID:[id number] Type:PPO Address: [address] [place] [id number] Care Teams Market Maker Relationship Specialty Start Date End Date Olivia Foss MD PCP - General 02/05/19
--- OUTSIDE RECORDS SUMMARY | 2025-01-21 14:21 | XMS_ITS | Encounter Summary ---
Author Organization [facility] Address [address] [facility] [place] [address] Care Team Providers Care Toolman Name Role Phone Olivia Foss MD Primary Care Provider Unavailable Encounter Details Date Type Department Care Team (Late st Contact Info) Description 04/09/2019 Lab Requisition [facility] Care DermPath Lab [address] [facility] [place] [address] Olivia Fernandez MD [address] [facility] 3 [place] [address] Social History Tobacco Use Types Packs/Day Years Used Date Smoking Tobacco: Never Assessed Comments Unknown Sex and Gender Information Value Date Recorded Sex Assigned at Not on file Legal Sex Female 6:20 AM CUT OFF OPERATOR SCORER Gender Identity Not on file Sexual Orientation Not on file documented as of this encounter Plan of Treatment Not on file documented as of this encounter Procedures Procedure Name Priority Date/Time Associated Diagnosis Comments DERMATOPATHOLOGY Routine 04/06/2019 12:0 0 AM CDT documented in this encounter Results * DERMATOPATHOLOGY (04/06/2019 12:00 AM CDT) Case Report Dermatopathology Report Case: [id number] Authorizing Provider: Olivia Fernandez MD Collected: 04/06/2019 12:00 AM Pathologist: Oanh Agrawal MD Received: 04/09/2019 06:40 AM Specimen: Skin, left fa 9 3:47 PM CDT DERMATOPATHOLOGY LABORATORY Final Diagnosis Specimen A. 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 Previous Bx: [id number]. 3:47 PM CDT DERMATOPATHOLOGY LABORATORY Gross Description Specimen A: Received is one formalin filled container labeled with the patient's name and designated left fa. The specimen consists of a non-oriented ellipse of skin measuring [id number]. The epidermal surface is unremarkable. The margin [...] characteristic determined by the Dermatopathology Laboratory at [facility], directed by Dr. Kwame Agrawal. These tests need not be, and therefore are not, approved by the [place] Food and Drug Administration. The tests are used for clinical purposes. Billing Codes Specimen Charges Stain Charges 97142 1 3:47 PM CDT DERMATOPATHOLOGY LABORATORY Embedded Images 3:47 PM CDT DERMATOPATHOLOGY LABORATORY Pathology/Cytolog y TISSUE SPECIMEN FROM SKIN / Unknown 04/06/2019 04/09/2019 6:40 AM CDT Olivia Fernandez MD LAB - PATHOLOGY/CYTOLOGY OR DERABLES Final Result DERMATOPATHOLOGY LABORATORY [facility] - Department of Dermatology [address] [facility], 5th [place] [address], [facility] [phone] documented in this encounter Visit Diagnoses Not on filedocumented in this encounter Care Teams Toolman Relationship Specialty Start Date End Date Olivia Foss MD PCP - General 02/05/19 documented as of this encounter
--- OUTSIDE RECORDS SUMMARY | 2025-01-21 14:21 | XMS_ITS | Encounter Summary ---
Author Organization [facility] Healthcare Address [address] [place] [address] Care Team Providers Care Dry Room Operator Name Role Phone Ashlee Doyle MD Primary Care Provider [phone] Randi Barney MD Unavailable [phone] Miscellaneous, Not In File Unavailable Unava ilable Sheryl Latham MD Unavailable Jonh Junior MD Primary Care Provide r Ashlee Doyle MD Primary Care Provider [phone] Jonh Junior MD Unavailable Encounter Details Date Type Department Care Team (Late st Contact Info) Description 03/31/[address] [facility] [address] [place] [address] Kindra Mir, RT Social History Tobacco Use Types Packs/Day Years Used Date Smoking Tobacco: Never Smokeless Tobacco: Never Alcohol Use Standard Drinks/Week Comments Yes 0 (1 standard drink = 0.6 oz pur e alcohol) Comments No Sex and Gender Information Value Date Recorded Sex Assigned at Not on file Legal Sex Female 2:10 AM BOX CHIPPER Gender Identity Not on file Sexual Orientation [...] documented as of this encounter Care Teams Dry Room Operator Relationship Specialty Start Date End Date Ashlee Doyle MD [address] [place] [address] PCP - General 02/09/18 08/24/23 Jonh Junior MD PCP - General Cardiology 08/25/23 09/04/23 Ashlee Doyle MD [address] [place] [address] PCP - General Internal Medicine 09/05/23 Randi Barney MD [address] [place] [address] Referring Physician Cardiology 03/12/21 08/24/23 Miscellaneous, Not In File 03/24/21 Sheryl Latham MD Medical Oncologist/Gift Packer Medical Oncology 05/12/21 Jonh Junior MD Referring Physician Cardiology 09/05/23 documented as of this encounter
--- OUTSIDE RECORDS SUMMARY | 2025-01-21 14:21 | XMS_ITS | Encounter Summary ---
Author Organization [facility] Address [address] [address] Care Team Providers Care Senior Audit Manager Name Role Phone Olivia Foss MD Primary Care Provider Unavailable Encounter Details Date Type Department Care Team (Late st Contact Info) Description 02/07/2019 Lab Requisition [facility] Care D[facility]Path Lab [address] [facility] [place] [address] Olivia Fernandez MD [address] [facility] [address] [place] [address] Social History Tobacco Use Types Packs/Day Years Used Date Smoking Tobacco: Never Assessed Comments Unknown Sex and Gender Information Value Date Recorded Sex Assigned at Not on file Legal Sex Female 6:20 AM DISTRIBUTION SYSTEM OPERATOR Gender Identity Not on file Sexual Orientation Not on file documented as of this encounter Plan of Treatment Not on file documented as of this encounter Procedures Procedure Name Priority Date/Time Associated Diagnosis Comments DERMATOPATHOLOGY Routine 02/05/2019 12:0 0 AM CDT documented in this encounter Results * DERMATOPATHOLOGY (02/05/2019 12:00 AM CDT) Case Report Dermatopathology Report Case: [id number] Authorizing Provider: Olivia Fernandez MD Collected: 02/05/2019 12:00 AM Pathologist: Oanh Agrawal MD Received: 02/07/2019 08:16 AM Specimens: A) - Skin, right thigh B) - Skin, left FA 9 10:54 AM CDT DERMATOPATHOLOGY LABORATORY Final Diagnosis Specimen A. SKIN, right thigh: INTRADERMAL MELANOCYTIC NEVUS (D22.71) Specimen B. 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 B: R/O SCC, non-healing. 10:54 AM [facility] DERMATOPATHOLOGY LABORATORY Gross Description Specimen A: Received is one formalin filled container labeled with the patient's name and designated right thigh. The specimen consists of a shave measuring [id number]. Jar 0. Specimen B: Received is one formalin filled container labeled with the patient's name and designated left FA. The specimen consists of a shave (2 pieces) measuring [id number] & [id number]. Jar 0. 10:54 AM [facility] DERMATOPATHOLOGY LABORATORY Microscopic Description Specimen A. SKIN, right thigh: There are nests of cytologically bland melanocytes within the dermis that mature with depth. Specimen B. SKIN, left FA: The epidermis shows parakeratosis, full thickness disorderly maturation of keratinocytes, mitoses at different levels, and dyskeratotic cells. This lesion is present at the margin of the specimen. 10:54 AM [facility] DERMATOPATHOLOGY LABORATORY Disclaimer An external and internal [...] purposes. Billing Codes Specimen Charges Stain Charges [id number] 1 1 9 10:54 AM T DERMATOPATHOLOGY LABORATORY Embedded Images 10:54 AM [facility] DERMATOPATHOLOGY LABORATORY Pathology/Cytology TISSUE SPECIMEN FROM SKIN / Unknown 02/05/2019 02/07/2019 8:16 AM CDT Miscellaneous samples (specimen) TISSUE SPECIMEN FROM SKIN / Unknown 02/05/2019 02/07/2019 8:16 AM CDT Olivia Fernandez MD LAB - PATHOLOGY/CYTOLOGY OR DERABLES Final Result DERMATOPATHOLOGY LABORATORY [facility] - Department of Dermatology [address] [place] [address], 5th [place] [address], [facility] [phone] documented in this encounter Visit Diagnoses Not on filedocumented in this encounter Care Teams Senior Audit Manager Relationship Specialty Start Date End Date Olivia Foss MD PCP - General 02/05/19 documented as of this encounter
--- NOTE | 2025-01-21 15:00 | ED.BACK ---
HPI - Back Pain/Injury General Chief Complaint: Back Pain/Injury Stated Complaint: back/hip pain Time Seen by Provider: 01/21/25 13:40 History of Present Illness HPI Narrative: 89-year-old female presenting with back pain. States that she was recently treated by her orthopedist for left lower back pain that went down her leg. States that she received a shot in her back for this and it helped a lot. Unfortunately shortly after getting the shot she then developed right-sided lower back pain that shoots down her leg. She was seen here a week ago and offered narcotic pain medications but she declined and thought she would be able to manage it with Tylenol. Imaging at that time showed no acute abnormalities. Unfortunately, the pain has persisted and is shooting down her leg more consistently. States the pain is unbearable. No numbness or weakness, saddle anesthesia, bladder or bowel incontinence, fevers. Has been taking scheduled Tylenol with minimal relief. Is unable to take other NSAIDs due to Eliquis use. Related Data Home Medications ?Medication ?Instructions ?Recorded ?Confirmed ?Last Taken ?Type acetaminophen 500 mg tablet 1,000 mg PO TID PRN Pain (Scale 10/21/23 01/10/25 Unknown History Score 1-3) amiodarone 200 mg tablet 100 mg PO DAILY 10/21/23 01/10/25 Unknown History apixaban 2.5 mg tablet (Eliquis) 2.5 mg PO Q12H 10/21/23 01/10/25 Unknown History fluticasone propionate 50 1 spray intranasal DAILY 10/21/23 01/10/25 Unknown History mcg/actuation nasal spray,suspension hydrocortisone 2.5 % topical cream 1 applic RECTAL DAILY PRN 10/21/23 01/10/25 Unknown History with perineal applicator Hemorrhoids melatonin 3 mg tablet 3 mg PO HS PRN Insomnia 10/21/23 01/10/25 Unknown History polysaccharide iron complex 150 mg 150 mg PO EVERY OTHER DAY 10/21/23 01/10/25 Unknown History iron capsule rosuvastatin 5 mg tablet 5 mg PO DAILY 10/21/23 01/10/25 Unknown History sucralfate 1 gram tablet 1 g PO TIDWM PRN stomach pain 10/21/23 01/10/25 Unknown History timolol 0.25 % eye drops 1 drp EACH EYE Q12H 10/21/23 01/10/25 Unknown History omeprazole 20 mg capsule,delayed 20 mg PO DAILY 04/02/24 01/10/25 Unknown History release Allergies Allergy/AdvReac Type Severity Reaction Status Date / Time Sulfa (Sulfonamide Allergy Severe Swelling Verified 01/21/25 12:05 Antibiotics) of Lip/Tongue/Throat Review of Systems Review of Systems: All systems reviewed & are unremarkable except as noted in HPI and below PMFSH Past Medical History Medical History Heart failure with mid-range ejection fraction Echocardiogram in October 2023 showed mildly reduced LV systolic function with an EF of 45 to 50% and grade 1 diastolic dysfunction. Transient ischemic attack Chronic anticoagulation Paroxysmal atrial fibrillation Left bundle branch block Hyperlipidemia Hypertension Lymphoma (2020) Surgical History Surgical History History of lymph node biopsy Family History Family History Sibling Cerebrovascular accident Social History Social History Social History: Surrogate medical decision maker: Annemarie Ortiz, granddaughter. Code status: Full code. Smoking status: Never smoker Alcohol intake: never Substance use: never Substance use type: does not use Do You Feel Safe in your Home?: Yes Lack of Transportation: No Lack of Food: Never True Current Housing: I Have Housing Concerned About Future Housing: No Difficulty Paying Gas/Electric Bills: No Difficulty Paying for Meds: No Currently Unemployed: No Education: Bachelor's Degree Difficulty w/ Childcare or Family Care: Decline to Answer Spiritual care concerns: No Exam Narrative: GENERAL: Nontoxic, uncomfortable appearing, pleasant cooperative HEAD: Normocephalic, atraumatic. EYES: PERRLA and EOMI. ENT: Mucous membranes moist. NECK: Supple. CHEST: No respiratory distress. HEART: Regular rate and rhythm ABDOMEN: Soft, nontender, nondistended EXTREMITIES: Normal range of motion. No edema. BACK: +tender right lower lumbar spine paraspinal musculature extending down right buttocks SKIN: Warm, dry, no rash. NEURO: No focal deficits. Alert and oriented x3. 5/5 strength in all extremities, no sensory deficits PSYCH: Normal mood and affect. Course Vital Signs Vital signs: Vital Signs Temperature 97.6 F 01/21/25 12:05 Pulse Rate 73 01/21/25 12:05 Respiratory Rate 17 01/21/25 12:05 Blood Pressure 149/42 H 01/21/25 12:05 Pulse Oximetry 100 01/21/25 12:05 Oxygen Delivery Room Air 01/21/25 12:05 Temperature 97.4 F L 01/21/25 16:16 Pulse Rate 69 01/21/25 16:16 Respiratory Rate 16 01/21/25 16:16 Blood Pressure 122/53 L 01/21/25 16:16 Pulse Oximetry 98 01/21/25 16:16 Oxygen Delivery Room Air 01/21/25 12:05 MDM - Back Pain/Injury MDM Narrative Medical decision making narrative: 89-year-old female presenting with right-sided lower back pain with radicular symptoms. She was just here last week and had imaging which showed no acute abnormalities. States that she just does not feel like she is able to control the pain with Tylenol alone. Denies new symptoms or injuries. States that the pain shooting down her legs just more frequent. Patient given a dose of steroids and oxycodone. States that the pain is certainly improved and she feels comfortable going home. Will send in for 4 more days of steroids as well as 10 oxycodone for severe breakthrough pain. Advised she can keep taking Tylenol 500 mg q.6. Advised that she follow-up closely with her orthopedic doctor and PCP. Appropriate return precautions given. She is agreeable this plan. Discharged in stable condition. Differential Diagnosis Differential diagnosis: Likely lumbar radiculopathy, sciatica and strain of lumbar region Medical Records Attestation: I reviewed the patient's medical records. Imaging Data My impression: Reviewed the imaging results from last week. She does have degenerative changes in her lumbar spine but there are no acute abnormalities. Critical Care Time Critical Care Time Critical Care Time: No Discharge Plan Discharge Clinical Impression: Lumbar back pain with radiculopathy affecting right lower extremity Patient Disposition: Home Condition: Stable Instructions: Antibiotic Form, Lumbar Radiculopathy (ED) Additional Instructions: Please complete the steroids as prescribed and follow-up closely with your spine doctor. You may use the oxycodone as prescribed for severe breakthrough pain. You may continue taking 500 mg of Tylenol every 6 hours as needed for pain. If your symptoms worsen or other concerning symptoms arise, please return to the ER. Patient Language: Kiswahili Prescriptions: New prednisone 20 mg tablet 40 mg PO DAILY Qty: 8 0RF oxycodone 5 mg tablet 5 mg PO Q8H PRN (Reason: pain) Qty: 10 0RF No Action amiodarone 200 mg tablet 100 mg PO DAILY sucralfate 1 gram tablet 1 g PO TIDWM PRN (Reason: stomach pain) polysaccharide iron complex 150 mg iron capsule 150 mg PO EVERY OTHER DAY melatonin 3 mg Tablet 3 mg PO HS PRN (Reason: Insomnia) acetaminophen 500 mg Tablet 1,000 mg PO TID PRN (Reason: Pain (Scale Score 1-3)) hydrocortisone 2.5 % Cream With Perineal Applicator 1 applic RECTAL DAILY PRN (Reason: Hemorrhoids) timolol 0.25 % Drops 1 drp EACH EYE Q12H fluticasone propionate 50 mcg/actuation [place],Suspension 1 spray INTRANASAL DAILY Rx Instructions: administer into each nostril rosuvastatin 5 mg tablet 5 mg PO DAILY Eliquis 2.5 mg tablet 2.5 mg PO Q12H spironolactone 25 mg Tablet 25 mg PO QAM Qty: 30 0RF omeprazole 20 mg capsule,delayed release(DR/EC) 20 mg PO DAILY guaifenesin [Mucus Relief ER] 600 mg Tablet Extended Release 12hr 600 mg PO Q12HR Qty: 60 0RF albuterol sulfate 90 mcg/actuation HFA aerosol inhaler 1 inh inhalation QID PRN (Reason: shortness of breath or wheezing) Qty: 8.5 0RF (DME) walker Misc See Rx Instructions .Route Qty: 1 0RF Rx Instructions: As directed Follow-up/Referrals: Hipolito Palm MD [Physician] - Yanira,MD Ashlee [Primary Care Provider] -
[2025-01-21] MEDS: oxyCODONE HCL (*CRX) 5 MG TAB IR PO (15:18)
[2025-01-21] MEDS: predniSONE 20 MG TABLET 40 MG PO (15:18)
[2025-01-21 16:16] VITALS: BP 122/53; PULSE 69; RESP 16; TEMP 36.3; O2SAT 98
[2025-01-21 17:35] VITALS: BP 120/60; PULSE 68; RESP 18; TEMP 36.6; O2SAT 98
== END 2025-01-21 17:35 | disposition home or self-care (01) ==
PROVIDERS: Emergency Provider Emergency Medicine; PCP Internal Medicine
DX: M54.16 Radiculopathy, lumbar region (principal); Z79.01 Long term (current) use of anticoagulants; I50.9 Heart failure, unspecified; Z86.73 Personal history of transient ischemic attack (TIA), and cerebral infarction without residual deficits; I48.0 Paroxysmal atrial fibrillation; E78.5 Hyperlipidemia, unspecified; I11.0 Hypertensive heart disease with heart failure; Z85.72 Personal history of non-Hodgkin lymphomas
CPT/HCPCS: 99283; A9270; J7512

== ENCOUNTER 2025-02-16 12:05 | Emergency (ER) | payer MEDICARE, BC, SELFPAY ==
--- NOTE | ~2025-02-16 | XR_ITS ---
EXAMINATION: XR chest 1V portable 02/16/2025 14:04 INDICATION: Fever and weakness PROCEDURE: AP portable chest COMPARISON: Comparison to multiple prior studies sequentially, with oldest reviewed study dated 03/01. FINDINGS: The lungs are clear. The cardiomediastinal silhouette is within normal limits. There are no pleural effusions. There is no pneumothorax suspected. IMPRESSION: 1: NO ACUTE CARDIOPULMONARY DISEASE. Reviewed, dictated and finalized at location A.
--- OUTSIDE RECORDS SUMMARY | 2025-02-16 12:09 | XMS_ITS | Patient Health Record ---
Author Organization [facility] Address [address] [place] [address] Care Team Providers Care Caster Investment Casting Name Role Phone Rafael Barrios Primary Care Provider [phone] Reason For Referral No Information Plan Of Treatment No Information
--- OUTSIDE RECORDS SUMMARY | 2025-02-16 12:09 | XMS_ITS | Clinical Summary ---
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 Asked patient to bring notes or forward prior to next visit. Follows with Dr. Izaguirre at [facility]. Will have second opinion with [facility] next available per patient request. CVA [...] (03/21/2021 4:04 AM CDT): -Patient follows Dr. 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 06/06/2018 Assessment & [...] Type Department Care Team Description 01/11/2025 Telephone [facility] [address] [facility] 8th [place] [address] [place] [address] Jonh Junior MD 11/20/2024 Results Follow-Up [address] [address] India Contreras, DO Vaginitis panel Vaginal from Last 3 Months Immunizations Immunization Administration Dates Next Due COVID-19 mRNA (BeSmart) 0.3 m L (30 mcg) vaccine (12 [...] on file Legal Sex Female 2:10 AM FAMILY CONSUMER SCIENCE TEACHER Gender Identity Not on file Sexual Orientation Not on file Occupation Industry Job Start Date Job End Date retired Not on file Not on file Not on file Obstetrics History Para Term AB IAB SAB Ectopic Multiple Livin g Live Births 2 2 2 0 0 0 0 0 0 2 2 Date Outcome GA Total Labor Labor/2nd/3rd Weight Sex Type Anes PTL Karen A1 A5 Name Clin 02/04 59 Term 3.629 kg (8 lb) M Vaginal Living Complications:None 05/07 64 Term 3.771 kg (8 lb 5 oz) F Vaginal Living Complications:None Last Filed Vital Signs Vital Sign Reading Time Taken Comments Blood Pressure 120/60 11/15/2024 12:54 PM FAMILY CONSUMER SCIENCE TEACHER Pulse 72 10/30/2024 9:57 AM FAMILY CONSUMER SCIENCE TEACHER Temperature 36.2 C (97.1 F) 10/30/2024 9:57 AM FAMILY CONSUMER SCIENCE TEACHER Respiratory Rate 16 08/30/2024 10:38 AM FAMILY CONSUMER SCIENCE TEACHER Oxygen Saturation 97% 08/30/2024 10:38 AM FAMILY CONSUMER SCIENCE TEACHER Inhaled Oxygen Concentration - - Weight 54.9 kg (121 lb) 11/15/2024 12:54 PM FAMILY CONSUMER SCIENCE TEACHER Height 165.1 cm (5' 5) 11/15/2024 12:54 PM FAMILY CONSUMER SCIENCE TEACHER Body Mass Index 20.14 11/15/2024 12:54 PM FAMILY CONSUMER SCIENCE TEACHER Plan of Treatment Health Maintenance Due Date Last Done Comments Depression Screening 1935 Well Visit 65+ 2002 Covid-19 Vaccine (2023- 5 season) 2024 06/10/2023, 06/19/2022, 12/18/2021, Additional [...] Procedure Name Priority Date/Time Associated Diagnosis Comments BONE MINERAL DENSITY 04/05/2017 from Last 3 Months or Most Recently Relevant to Health Maintenance Results * BONE MINERAL DENSITY (04/05/2017) Anatomical Region Laterality Modality Radiographic Christi ging Narrative 04/05/2017 Ordered by an unspecified provider. us Historical Provider MD GRIGGS DXA PROCEDURES Final Result from Last 3 Months or Most Recently Relevant to Health Maintenance Insurance [facility]ICARE [facility] MEDICARE MEDICARE ANTHEM ACCESS CHOICE EM ACCESS MEDICARE [facility] FEDERAL Advance Directives For more information, please contact: [phone] * Full Code (Latest Code Status on [...] 11:35 PM 02/20/2021 8:13 PM Care Teams Software Writer Relationship Specialty Start Date End Date Ashlee Doyle MD [address] [place] [address] PCP - General Internal Medicine 09/05/23 Miscellaneous, Not In File 03/24/21 Sheryl Latham MD Medical Oncologist/Cable Testers Helper Medical Oncology 05/12/21 Jonh Junior MD [address] [place] [address] Referring Physician Cardiology 09/05/23
--- OUTSIDE RECORDS SUMMARY | 2025-02-16 12:09 | XMS_ITS | CONTINUITY OF CARE DOCUMENT ---
Author Name taylor vazquez Address Unknown Organization [facility] Address [address] [place] [address] [address] [place] [address] Phone [phone] Care Team Providers Care Technician Biological Health Name Role Phone Gilmar CRUZ, Juliana Unavailable Juliana Schafer MD Unavailable [phone] INSURANCE PROVIDERS Payer name Policy type / Coverage type [place] [employer] party ID [facility] [id number] [employer] MEDICARE Medicare [id number]
--- OUTSIDE RECORDS SUMMARY | 2025-02-16 12:09 | XMS_ITS ---
Author Organization [facility] Address [address] [place] [address] Care Team Providers Care House Visitor Name Role Phone Miscellaneous, Not In File Unavailable Unava ilable Sheryl Latham MD Unavailable [phone] Ashlee Doyle MD Primary Care Provider [phone] Jonh Junior MD Unavailable Active Problems Problem [...] stable from prior notes from [facility] - Fundus exam and photos appear stable [...] should continue to monitor with her general office assistant Assessment & Plan (04/01/2022 3:54 PM CDT): [...] (ERM) peel right eye (OD) 2007 at [facility]. Asked patient to bring notes or forward prior to next visit. Follows with Dr. Izaguirre at [facility]. Will have second opinion with [facility] next available per patient request. 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
--- OUTSIDE RECORDS SUMMARY | 2025-02-16 12:09 | XMS_ITS | Referral Summary ---
Author Organization [facility] Address [address] [place] [address] Care Team Providers Care Pawn Shop Keeper Name Role Phone Miscellaneous, Not In File Unavailable Unava ilable Sheryl Latham MD Unavailable [phone] Ashlee Doyle MD Primary Care Provider [phone] Jonh Junior MD Unavailable Encounters Date Type Department Care Team Description 01/11/2025 Telephone [facility] [address] [facility] Advanced Medicine 8th [place] [address] [place] [address] Jonh Junior MD 11/20/2024 Results Follow-Up [address] [address] India Contreras DO Vaginitis panel Vaginal from Last 3 Months Allergies Active Allergy [...] 5 mg tabletIndications :Coronary artery disease involving [place] coronary artery of [place] heart without angina pectoris Take 1 tablet [...] DAY IN THE MORNING 90 tablet 1 04/01/202 5 Active Active Problems Problem Noted Date [...] stable from prior notes from [facility] - Fundus exam and photos appear stable [...] should continue to monitor with her general utility machine operator Assessment & Plan (04/01/2022 3:54 PM CDT): [...] [facility]. Will have second opinion with [facility] next available per patient request. CVA (cerebral vascular accident) 01/13/2022 History of severe acute resp iratory syndrome coronavirus 2 (SARS-CoV-2) disease 12/11/2021 On detention drug therapy 12/11/2021 Bradycardia 12/04/2021 Sinus pause [...] exertion 06/06/2018 Coronary artery disease invo lving [place] coronary artery of [place] heart without angina pectoris 06/06/2018 Assessment & [...] Immunization Administration Dates Next Due COVID-19 mRNA (GetNinjas) 0.3 m L (30 mcg) vaccine (12 [...] on file Legal Sex Female 2:10 AM ELEVATOR CONSTRUCTOR ELECTRIC Gender Identity Not on file Sexual Orientation Not on file Occupation Industry Job Start Date Job End Date retired Not on file Not on file Not on file Last Filed Vital Signs Vital Sign Reading Time Taken Comments Blood Pressure 120/60 11/15/2024 12:54 PM ELEVATOR CONSTRUCTOR ELECTRIC Pulse 72 10/30/2024 9:57 AM ELEVATOR CONSTRUCTOR ELECTRIC Temperature 36.2 C (97.1 F) 10/30/2024 9:57 AM ELEVATOR CONSTRUCTOR ELECTRIC Respiratory Rate 16 08/30/2024 10:38 AM ELEVATOR CONSTRUCTOR ELECTRIC Oxygen Saturation 97% 08/30/2024 10:38 AM ELEVATOR CONSTRUCTOR ELECTRIC Inhaled Oxygen Concentration - - Weight 54.9 kg (121 lb) 11/15/2024 12:54 PM ELEVATOR CONSTRUCTOR ELECTRIC Height 165.1 cm (5' 5) 11/15/2024 12:54 PM ELEVATOR CONSTRUCTOR ELECTRIC Body Mass Index 20.14 11/15/2024 12:54 PM ELEVATOR CONSTRUCTOR ELECTRIC Plan of Treatment Not on file Procedures [...] Insurance [facility]IC[facility] AN[facility]M ACCESS MEDICARE [facility] FEDERAL Advance Directives For more information, please contact: [phone] * Full Code (Latest Code Status on [...] 11:35 PM 02/20/2021 8:13 PM Care Teams Pawn Shop Keeper Relationship Specialty Start Date End Date Ashlee Doyle MD [address] [place] [address] PCP - General Internal Medicine 09/05/23 Miscellaneous, Not In File 03/24/21 Sheryl Latham MD Medical Oncologist/Broke Beater Operator Medical Oncology 05/12/21 Jonh Junior MD [address] [place] [address] Referring Physician Cardiology 09/05/23
--- OUTSIDE RECORDS SUMMARY | 2025-02-16 12:09 | XMS_ITS | Data Portability ---
Author Organization [place] [facility] [employer], Main Office Address [address] [place] [address] Care Team Providers Care Coal Hauler Name Role Phone LD REYNOSO Primary Care Provider [phone] LD REYNOSO Referring Provider Assessment Encounter Date Assessment Date Assessment [...] This note is dictated and transcribed by [employer]. Receiving Barn Custodian variances may occur. Despite proofreading, typographical errors may occur. Occasional wrong-word or 'lsycm-h-kbie' substitutions may have occurred due to the [...] DO Not Attach Compendium, Do Not Delete/merge, [id number] 11/20/2024 10:34:42 injection /aspirati on joint/bur sa (PROC) 2023 024 [email or web address] In-Office Order, Internal Use Only DO Not Attach Compendium DO Not Attach Compendium, Do Not Delete/merge, [id number] 08/21/2024 10:41:24 injection /aspirati on joint/bur sa (PROC) 2023 024 [email or web address] In-Office Order, Internal Use Only DO Not Attach Compendium DO Not Attach Compendium, Do Not Delete/merge, [id number] 05/15/2024 10:22:55 injection /aspirati on joint/bur sa (PROC) 2023 024 [email or web address] In-Office Order, Internal Use Only DO Not Attach Compendium DO Not Attach Compendium, Do Not Delete/merge, [id number] 02/07/2024 10:36:14 Surgeries None recorded. Imaging None recorded. Medication Orders bupivacai ne HCl 0.5 % (5 mg/mL) injection solution 2024 025 [email or web address] [facility] [address], [address], 11/20/2024 11:16:59 Kenalog 10 mg/mL suspensio n for injection 2024 025 [email or web address] [facility] [address], [address], 11/20/2024 11:16:59 bupivacai ne HCl 0.5 % (5 mg/mL) injection solution 2023 024 [email or web address] [facility] [address], [address], 08/21/2024 11:04:45 triamcino lone acetonide 40 mg/mL suspensio n for injection 2023 024 [email or web address] [facility] [address], [address], 08/21/2024 11:04:45 Kenalog 10 mg/mL suspensio n for injection 2023 024 [email or web address] [facility] [address], [address], 08/21/2024 10:37:03 Marcaine (PF) 0.5 % (5 mg/mL) injection solution 2023 024 [email or web address] [facility] [address], [address], 08/21/2024 10:37:25 bupivacai ne HCl 0.5 % (5 mg/mL) injection solution 2023 024 [email or web address] [facility] [address], [address], 08/21/2024 10:36:18 Kenalog 10 mg/mL suspensio n for injection 2023 024 [email or web address] [facility] [address], [address], 08/21/2024 10:37:03 Patient TargetsNo targets recorded. Patient InstructionsNo instructions recorded. Reason for Referral None Reported. Problems Name Problem SNOMED Code Status Onset Date Resolution Date Notes Provider Name and Address Organization Details Recorded Time Bilateral osteoarth ritis of knees 49658532054 9107 Active 2021 Not Available [facility] 3 20:02:36 Hammer toe 939235918 Active 2017 Not Available [employer] 3 20:02:36 Heartburn 87929815 Active 2017 Not Available [employer] 3 20:02:36 Foot callus 641056996 Active 2020 Not Available [employer] 3 20:02:36 Injury of great toenail 422577001 Active 2018 Not Available [employer] 3 20:02:36 Unable to cut own toenails 846253484 Active 2020 Not Available [employer] 3 20:02:36 Arthritis 8032153 Active 2017 Not Available [facility] 3 20:02:37 Migraine 18464158 Active 2017 Not Available [facility] 3 20:02:37 Porokerat osis 088702142 Active 2020 Not Available [facility] 3 20:02:37 Onychomyc osis of toenails 549035974 Completed 201712/24/2020 Not Available [facility] 3 20:02:37 Bunion 946381111 Active 2017 Not Available [facility] 3 20:02:37 Pain of right knee joint 62280164052 4100 Active 2021 Not Available [facility] 3 20:02:37 Pain of left knee joint 05081612081 4107 Active 2022 Not Available [facility] 3 20:02:37 Pain of bilateral knee joints 03343763398 4104 Active 2022 Not Available [facility] 3 20:02:37 Dystrophi a unguium 64502534 Active 2020 Not Available [facility] 3 20:02:38 Osteoarth ritis 223903920 Active 2022 EUFEMIA Clarke, [place] [employer] [facility] [employer] [facility] 3 10:30:33 Pain of left shoulder joint 42546105014 353996 Active 2022 Gena Esquivel null, [employer] [facility] [employer] [facility] 3 10:52:50 Tendiniti s of left rotator cuff 25096055769 181634 Active 2022 Hipolito Palm MD [address], [address], [place], [address] , [employer] [facility] [employer] [facility] 3 10:57:44 Pain in both feet 67258955048 936742 Active 2023 Nadeem Blair DPM [address], [address], [place], [address] , [facility] [employer] [facility] [employer] [facility] 4 09:12:06 Hammer toe 500439721 Active 2023 Nadeem Blair DPM [address], [address], [place], [address] , [employer] 4 19:15:41 Pain in toe 816106730 Active 2023 Nadeem Blair DPM [address], [address], [place], [address] , [employer] 4 19:16:13 Callosity on toe 254037517 Active 2024 Nadeem Blair DPM [address], [address], [place], [address] , [employer] 5 12:47:13 Notes:allergies, eye problem s, wears glasses, vision problems, ringing in ears Problem Notes None recorded. Procedures Surgical History Date Name Laterality Status Provider Name and Address Organization Details Recorded Time 5 Nail Debridement completed Nadeem Blari DPM [address], [address], [place], [address], [employer] 12/11/2024 12:47:06 5 Callus Debridement 2-4 completed Nadeem Blair DPM [address], [address], [place], [address], [employer] 12/11/2024 12:46:57 4 Nail Debridement completed Nadeem Blair DPM [address], [address], [place], [address], [employer] 01/17/2024 19:14:53 4 Callus Debridement 2-4 completed Nadeem Blair DPM [address], [address], [place], [address], [employer] 01/17/2024 19:14:40 4 Nail Debridement completed Nadeem Blair DPM [address], [address], [place], [address], [employer] 10/06/2023 12:01:21 4 Callus Debridement 2-4 completed Nadeem Blair DPM [address], [address], [place], [address], [facility] 10/06/2023 12:01:14 3 Ortho - Cortisone Injection completed Hipolito Palm MD [address], [address], [place], [address], [facility] 04/26/2023 10:49:51 3 Ortho - Cortisone Injection completed Hipolito Palm MD [address], [address], [place], [address], [facility] 01/18/2023 10:57:27 Imaging Results None recorded. Procedure Notes None recorded. Medical Equipment None Reported. Allergies Allergen ID Allergen Name Allergen Category Reaction Reaction Severity Criticality Documentation Date Start Date Code Code System Note Provider Name and Address Organization Details Recorded Time 06556 sulfur dioxide medicatio n facial swelling Not available Not available 11/17/2022 35299 79 RxNorm Not Available [facility] 3 20:04:47 Medications Name Sig Start Date [...] Not Available Not Available Not Available prednisone 10 mg tablet TAKE 1 TABLET BY MOUTH TWICE DAILY FOR 10 DAYS active Not Available Not Available No t Available doxycycline hyclate 100 mg capsule 10/06 [...] Not Available Not Available Not Avai lable prednisone 20 mg tablet TAKE 2 TABLETS BY MOUTH DAILY active Not Available Not Available No t Available cyanocobala min (vit B-12) 1,000 mcg [...] 40 mg by injection route. 2024 active [facility]: 0003- 0494- 20 Not Available Not Available [...] completed Not Available Not Available Not Available oxycodone 5 mg tablet TAKE 1 TABLET BY MOUTH EVERY 8 HOURS NEEDED FOR PAIN active Not Available Not Available No t Available magnesium 200 mg tablet TAKE 1 [...] 40 mg by injection route. 08/02 completed [facility] [phone] -[phone] Not Available Not Available Not [...] Not Available No t Available Fluzone High-Dose 8895-2740 (PF) 180 mcg/0.5 mL intramuscul ar syringe [...] Updated DateTime 11/20/2024 167.64 cm 19.4 kg/m2 47462.08 g MARIE Desai [place] [employer] [facility] 11/20/2024 10:32:52 Date Recorded Body height Body mass index (BMI) Body weight Heart rate Respiratory rate Oxygen saturation Oxygen saturation in Arterial blood by Pulse oximetry Systolic blood pressure Diastolic blood pressure Provider Name and Address Organization Details Last Updated DateTime 167.64 cm 19.4 kg/m2 64724.0 8 g 77 /min 14 /min 97 % 97 % 103 mm[Hg] 57 mm[Hg] Kristy Lin [employer] 11:43:01 Date Recorded Body height Body mass index (BMI) Body weight Provider Name and Address Organization Details Last Updated DateTime 02/07/2024 165.1 cm 20 kg/m2 86506.08 timur Parkinsonmons [employer] 02/07/2024 10:34:41 Date Recorded Body height Provider Name an d Address Organization Details Last Updated DateTime 05/15/2024 165.1 cm Gena Sierra [employer] 05/15/2024 10:21:11 Date Recorded Body height Body mass index (BMI) Body weight Provider Name and Address Organization Details Last Updated DateTime 08/21/2024 165.1 cm 19.5 kg/m2 39959.31 timur Rucker [employer] 08/21/2024 10:35:03 Social History None recorded. Functional Status Question Answer Note LastModified by [employer] Details LastModified Time What is your level of alcohol consumption? None [id number] Information not available 11/17/2022 Mental Status None recorded. Family History Relationship Description Onset Age of this Age Resolved Age Notes LastModified by Organization Details LastModified Time Mother Heart disease [email or web address] [id number] Not available 11/17/2022 20:01:48 Daughter Diabetes mellitus [email or web address] Not available 2022 10:37:56 Medical History Condition Response ARTHRITIS Y CANCER: SPECIFY Y OSTEOPOROSIS Y URINARY/BLADDER/KIDNEY PROBLEMS Y USE OF BLOOD THINNERS Y HEART ARRHYTHMIA Y Gynecological HistoryNo gynecological history recorded. Obstetrics History GPAL:G 0 P 0 0 0 0 Past Encounters Encounter ID Performer Location Encounter Start Date Encounter Closed Date Diagnosis/Indication Diagnosis SNOMED-CT Code Diagnosis ICD10 Code Diagnosis Note [id number] [facility] [address] [place] [address] 12/24/2020 00:00:00 12/24/2020 12:30:59 [id number] MASHA XiongS[facility] [place] [address] [address] 01/22/2021 00:00:00 01/22/2021 14:39:24 [id number] [facility]adeem [facility]PM [facility] [address] [place] [address] 06/09/2021 00:00:00 06/09/2021 15:44:55 [id number] Nadeem Blair DPM [facility] [place] [address] [place] [address] 09/08/2021 00:00:00 09/09/2021 14:14:15 [id number] [facility] [address] [place] [address] 12/01/2021 00:00:00 12/07/2021 09:22:09 [id number] [facility]adeem Blair [facility]PM [facility] [address] [place] [address] 03/11/2022 00:00:00 03/11/2022 15:00:59 [id number] Hipolito Palm MD [facility] [address] [address] 06/15/2022 00:00:00 06/15/2022 10:48:18 [id number] [facility] [address] [place] [id number] 06/21/2022 00:00:00 06/21/2022 11:25:00 [id number] Hipolito Palm MD [facility] [address] [address] 07/27/2022 00:00:00 07/27/2022 10:58:30 [id number] Hipolito Palm MD [facility] Ortho [address] [address] 10/19/2022 00:00:00 10/19/2022 11:23:43 [id number] Nadeem Blair DPM [facility] Pod[facility] [place] [address] [address] 11/04/2022 00:00:00 11/04/2022 13:12:01 [id number] Hipolito Palm MD [address] [address] 01/18/2023 10:25:40 01/18/2023 11:47:03 Osteoarthritis 329967190 M17.0 Pain of le ft shoulder joint 6083790433 3894927 M25.512 Bilateral osteoarthritis of knees 0704899522 95580 M17.0 Tendinitis of left rotator cuff 8165042162 4844117 M67.814 [id number] Hipolito Palm MD [address] [address] 04/26/2023 10:29:26 04/26/2023 10:54:17 Osteoarthritis 917199872 M17.0 Pain of le ft shoulder joint 8178107490 7967086 M25.512 Bilateral osteoarthritis of knees 2105890740 06191 M17.0 Tendinitis of left rotator cuff 4757004091 8662307 M67.583 [id number] Pacheco Williamson MD [facility]_[address] [address] 08/02/2023 10:16:49 08/02/2023 11:03:26 Bilateral osteoarthritis of knees 1095217926 90102 M17.0 Pain of bi lateral knee joints 7967394959 43873 M25.561 M25.351 [id number] Nadeem Blair DPM [facility] Pod[facility] [place] [address] [address] 10/06/2023 11:40:05 10/17/2023 09:32:53 Dystrophia unguium 61028295 L60.3 Nails debrided without incidentFo llow-up 3 months as needed Foot callus 968388800 L8 4 Debrided without incidentRe commend use of pumice stoneOfflo ading with supportive shoe gear to prevent wounds infectionF ollow-up in 3 months as needed Pain in both feet 459071 3436 0024530 M79.671 M79.672 Secondary to above [id number] Jude Leos MD [facility]_[address] [address] 11/08/2023 10:33:08 11/08/2023 11:16:24 Bilateral osteoarthritis of knees 0882421453 19287 M17.0 Pain of bi lateral knee joints 2422202098 51941 M25.561 M25.767 [id number] Nadeem Blair DPM [facility] Podiat[facility] [place] [address] [facility] [address] [place] [address] 01/05/2024 11:30:28 01/18/2024 13:00:27 Hammer toe 693811500 M20.40 continue conservati ve offloading recommend silicone offloading sleeves and wide soft toe box shoe gear Foot callus 323155954 L8 4 Debrided without incidentRe commend use of pumice stoneOfflo ading with supportive shoe gear to prevent wounds infectionF ollow-up in 3 months as needed Dystrophia unguium 73086 009 L60.3 Nails debrided without incidentFo llow-up 3 months as needed Pain in toe 061572371 M7 9.676 secondary to above [id number] Jude Leos MD [address] [address] 02/07/2024 10:32:03 02/07/2024 10:48:39 Bilateral osteoarthritis of knees 8615173998 76675 M17.0 Pain of bi lateral knee joints 0092768431 81286 M25.561 M25.096 [id number] Jude Leos MD [facility] [address] 05/15/2024 10:17:20 05/15/2024 10:45:39 Bilateral osteoarthritis of knees 0319173257 49457 M17.0 Pain of bi lateral knee joints 3102868770 13658 M25.561 M25.038 [id number] Jude Leos MD [facility] [address] 08/21/2024 10:09:13 08/21/2024 10:50:56 Bilateral osteoarthritis of knees 1472037203 41399 M17.0 Pain of bi lateral knee joints 2595435080 51712 M25.561 M25.935 [id number] Jude Leos MD [facility] [place] [address] [place] [address] 11/20/2024 10:24:01 11/20/2024 10:47:35 Bilateral osteoarthritis of knees 4390752077 58390 M17.0 Pain of bi lateral knee joints 6948382636 31396 M25.561 M25.761 [id number] Nadeem Blair DPM [facility] [address] [place] [address] 12/11/2024 11:35:22 12/11/2024 12:53:03 Dystrophia unguium 57903376 L60.3 Nails debrided without incidentFo llow-up 3 months as needed Pain in toe 693964937 M7 9.676 secondary to above Unable to cut own toenails 187894259 Z74.1 Callosity on toe 6918920 01 L84 debrided bilateral great toes- calluses [...] Name 02/07/2024 1 [place] Agustina Cordova [id number] 1 [id number] Agustina Cordova 02/07/2024 2 [place] 104 Agustina Cordova [id number] Agustina Cordova 05/15/2024 1 [place] Agustina Cordova [id number] 1 [id number] Agustina Cordova 05/15/2024 2 [place] 104 Agustina Cordova [id number] Agustina Cordova 08/21/2024 1 [place] Agustina Cordova [id number] 1 [id number] Agustina Cordova 08/21/2024 2 [place] 104 Agustina Cordova [id number] Agustina Cordova 11/20/2024 1 [place] Agustina Cordova [id number] 1 [id number] Agustina Cordova 11/20/2024 2 [place] 104 Agustina Cordova [id number] Agustina Cordova 12/11/2024 1 [place] Agustina Cordova [id number] 1 [id number] 51 Agustina Cordova 12/11/2024 2 [place] 104 Agustina Cordova [id number] Agustina Cordova Notes Date Note Type Note Provider Name and Address Organization Details Recorded Time 02/07/2024 text/html Patient returns she is complaining of pain in both knees she has severe primary arthritis in the left knee moderately severe in the right. She has jyfc-oe-zznx changes in the medial compartment of the left knee nearly body-qa-rlhv in the lateral compartment of the right [...] gets by with conservative measures. ELOISA Craig [address] [place] [address], [place] [address], [place], [address], [facility] [employer] 02/07/2024 10:51:58 05/15/2024 text/html Patient returns with bilateral knee pain. She has severe primary osteoarthritis left knee moderately severe in the right knee. She has sasc-sx-vabh changes in medial compartment left knee in [...] ELOISA Craig [address], [place], [address], [facility] [employer] [facility] [employer] 05/15/2024 10:40:38 08/21/2024 text/html Patient returns she is complaining of bilateral knee pain left slightly worse than right the left knee is fdns-ns-bbdm in the medial compartment right knee not quite yet there but certainly both compartments in the right knee tibial femoral articulation are very narrowed near kxci-wk-utcm. She also has significant patellofemoral changes. She [...] ELOISA Craig [address], [place], [address], [facility] [employer] 08/21/2024 10:53:29 11/20/2024 text/html The patient retu rns complaining of bilateral knee pain. Previous x-rays show severe primary osteoarthritis of the left knee moderately severe in the right knee. Left knee is uuyz-ui-lufo in the medial compartment right knee has [...] in total knee arthroplasty. ELOISA Craig [address], [place], [address], [employer] 11/20/2024 11:16:25 12/11/2024 text/html . Patient is a 8-year-old female who returns for routine foot care secondary to elongated toenails she is unable to cut them states when they are long they are painful she states she has pain to the toes with shoe gear she denies any other complaints. Nadeem Blair DPM [address], [place], [address], [employer] 12/11/2024 12:47:49 OBGyn Episode No OBEpisode recorded.
[2025-02-16 12:10] VITALS: BP 107/60; PULSE 104; RESP 20; TEMP 36.7; O2SAT 98
--- OUTSIDE RECORDS SUMMARY | 2025-02-16 12:10 | XMS_ITS | Encounter Summary ---
Author Organization [facility] Address [address] [place] [address] Care Team Providers Care Mandarin Chinese Teacher Name Role Phone Olivia Foss MD Primary Care Provider Unavailable Encounter Details Date Type Department Care Team (Late st Contact Info) Description 04/09/2019 Lab Requisition [facility] Care DermPath Lab [address] [facility], [place] [address] Olivia Fernandez MD [address] [place] [address] Social History Tobacco Use Types Packs/Day Years Used Date Smoking Tobacco: Never Assessed Comments Unknown Sex and Gender Information Value Date Recorded Sex Assigned at Not on file Legal Sex 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 Gender Identity Not on file Sexual Orientation Not on file documented as of this encounter Plan of Treatment Not on file documented as of this encounter Procedures Procedure Name Priority Date/Time Associated Diagnosis Comments DERMATOPATHOLOGY Routine 04/06/2019 12:0 0 AM CDT documented in this encounter Results * DERMATOPATHOLOGY (04/06/2019 12:00 AM CDT) Case Report Dermatopathology Report Case: [id number] Authorizing Provider: Olivia Fernandez MD Collected: 04/06/2019 12:00 AM Pathologist: Oanh Agrawal MD Received: 04/09/2019 06:40 AM Specimen: Skin, left fa 9 3:47 PM CDT DERMATOPATHOLOGY LABORATORY Final Diagnosis Specimen A. 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 Previous Bx: [id number]. 3:47 PM CDT DERMATOPATHOLOGY LABORATORY Gross Description Specimen A: Received is one formalin filled container labeled with the patient's name and designated left fa. The specimen consists of a non-oriented ellipse of skin measuring [id number]. The epidermal surface is unremarkable. The margin [...] determined by the Dermatopathology Laboratory at [facility], directed by Dr. Kwame Agrawal. These tests need not be, and therefore are not, approved by the [place] Food and Drug Administration. The tests are used for clinical purposes. Billing Codes Specimen Charges Stain Charges 88744 1 3:47 PM CDT DERMATOPATHOLOGY LABORATORY Embedded Images 3:47 PM CDT DERMATOPATHOLOGY LABORATORY Pathology/Cytolog y TISSUE SPECIMEN FROM SKIN / Unknown 04/06/2019 04/09/2019 6:40 AM CDT Olivia Fernandez MD LAB - PATHOLOGY/CYTOLOGY OR DERABLES Final Result DERMATOPATHOLOGY LABORATORY [facility] - Department of Dermatology [address] [facility], [address] [place] [address], [facility] [phone] documented in this encounter Visit Diagnoses Not on filedocumented in this encounter Care Teams Mandarin Chinese Teacher Relationship Specialty Start Date End Date Olivia Foss MD PCP - General 02/05/19 documented as of this encounter
--- OUTSIDE RECORDS SUMMARY | 2025-02-16 12:10 | XMS_ITS | Clinical Summary ---
Author Organization [facility] [employer] Address [address] [place] [address] Care Team Providers Care Industrial Plant Custodian Name Role Phone Olivia Foss MD Primary Care Provider Unavailable Source Comments [facility] [employer],non-owned Affiliates and Associated Physician Practices is amultiple site organization consisting of ambulatory clinics and hospital sitesin [place], [place], [place] and [place]. This disclosure is being madepursuant to the Care Everywhere program and may not contain all information available regarding this patient. Last updated 18.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 Gender Identity Not on file Sexual Orientation Not on file Last Filed Vital Signs Vital Sign Reading Time Taken Comments Blood Pressure 128/80 01/02/2016 1:57 PM CDT Pulse - - Temperature - - Respiratory Rate - - Oxygen Saturation - - Inhaled Oxygen Concentration - - Weight 68.9 kg (152 lb) 01/02/2016 1:57 PM CDT Height 165.1 cm (5' 5) 01/02/2016 1:57 PM CDT Body Mass Index 25.29 01/02/2016 1:57 PM CDT Plan of Treatment Health Maintenance Due Date Last Done Comments BONE DENSITY TESTING 1937 DTAP/TDAP/TD VACCINES (1 - Tdap) 1956 [...] age to complete this topic Insurance MEDICARE [facility] Care Teams Industrial Plant Custodian Relationship Specialty Start Date End Date Olivia Foss MD PCP - General 02/05/19
--- OUTSIDE RECORDS SUMMARY | 2025-02-16 12:10 | XMS_ITS | Data Portability ---
Author Organization [facility], [employer] Address [address] [place] [address] Care Team Providers Care Diagrammer Name Role Phone BONITA DOYLEANABEL Primary Care [...] Organization Details Last Modified Time Details Appointments ESTABLISH ED PATIENT 15 2024 11:15A Oanh Doyle MD Not available Not available Not available Lab vitamin B12 + folate, serum or blood 2024 025 [facility], [address] [place], [address], 10/23/2024 14:39:51 magnesium , QN, serum or plasma [address] Outpatient Lab, [address] [place], [address], 12/31/2024 15:32:57 CMP, serum or plasma 2024 025 [facility], [address] [place], [address], 10/23/2024 14:39:51 CBC w/ auto diff 2024 025 [facility], [address] [place], [address], 10/23/2024 20:59:59 hemoglobi n A1c, QN, blood 2024 025 [facility], [address] [place], [address], 10/23/2024 20:59:59 lipid panel w/ direct LDL, serum 2024 025 [facility], [address] [place], [address], 10/23/2024 14:39:51 TSH, serum or plasma [address] - Outpatient Lab, [address] [place], [address], 12/31/2024 15:32:57 pro BNP (pro B-type natriuret ic peptide), serum or plasma 2024 025 [facility], [address] [place], [address], 10/23/2024 20:59:59 iron panel, serum or plasma 2024 025 [facility], [address] [place], [address], 10/23/2024 20:59:59 CMP, serum or plasma 2023 024 [facility], [address] [place], [address], 06/25/2024 04:09:57 magnesium , QN, serum or plasma 2023 024 [facility], [address] [place], [address], 06/25/2024 04:09:57 CBC w/ auto diff - 8 weeks from 04/17/242023 024 [facility], [address] [place], [address], 05/16/2024 14:00:39 iron panel, serum or plasma - 8 weeks from 04/17/242023 024 [facility], [address] [place], [address], 04/25/2024 04:05:03 lipid panel w/ direct LDL, serum 2023 024 [facility], [address] [place], [address], 03/13/2024 18:10:08 hepatic function panel, serum 2023 024 [facility] - Outpatient Lab, [address] [place], [address], 03/13/2024 18:10:08 iron panel, serum or plasma 2023 024 [facility] - Outpatient Lab, [address] [place], [address], 03/13/2024 18:10:08 CBC w/ auto diff 2023 024 [facility] - Outpatient Lab, [address] [place], [address], 03/13/2024 18:10:08 Referral otolaryng ologist referral 2023 024 sneal Bola Vega MD, [facility] [place], [address], 03/06/2024 16:02:00 Procedures None recorded. Surgeries None recorded. Imaging CT, chest + abdomen + pelvis, w/o contrast 2024 025 [facility] [address] [place], [address], 10/23/2024 16:36:21 XR, chest, 2 view 2024 025 [facility] ([facility]), [address] [place], [address], 10/23/2024 16:48:57 XR, chest, 2 view - 6 weeks from 04/07/242023 024 [facility] ([facility]), [address] [place], [address], 05/16/2024 13:44:01 Medication Orders Creon 24,000-76 ,000-120, 000 unit capsule,d elayed release 2024 025 [id number] [facility], [facility] [place], [address], 11/07/2024 13:12:54 Eliquis 2.5 mg tablet 2024 025 [facility] [id number] In [facility], [address] [place] [address], [address], 10/08/2024 12:13:09 triamcino lone acetonide 0.1 % topical cream 2023 024 [facility] [id number] In [facility], [address] [place] [address], [address], 06/18/2024 12:41:20 Eliquis 2.5 mg tablet 2023 024 [facility] [id number] In [facility], [address] [place] [address], [address], 06/18/2024 12:41:17 fluconazo le 100 mg tablet 2023 024 [facility] [id number] In [facility], [address] [place] [address], [address], 06/14/2024 18:22:20 ferrous sulfate 300 mg (60 mg iron)/5 mL oral liquid 2023 024 [facility] [address] In [facility], [address] [place] [address], [address], 06/14/2024 18:22:14 benzonata te 100 mg capsule 2023 024 [facility] [address], [address], 06/13/2024 20:03:27 meclizine 12.5 mg tablet 2023 025 [facility] [id number] In [facility], [address] [place] [address], [address], 10/08/2024 12:03:37 Patient TargetsNo targets recorded. Patient Instructions Encounter Date Encounter Id Patient Instructions Last Modified By Organization Details Last Modified Time 01/06/2024 [id number] age-related macular degeneration: care instructions mshenouda Not available 01/06/2024 13:47:38 03/06/2024 [id number] mammogram: about this test mshenouda Not available 03/06/2024 15:56:05 cough: care instructions mshenouda Not available 03/06/2024 15:56:05 benign paroxysma l positional vertigo (bppv): care instructions mshenouda Not available 03/06/2024 15:56:04 high cholesterol : care instructions mshenouda Not available 03/06/2024 15:56:05 anemia: care instructions mshenouda Not available 03/06/2024 15:56:05 carotid stenosis : care instructions mshenouda Not available 03/06/2024 15:56:05 04/18/2024 [id number] pneumonia: care instructions mshenouda Not available 04/18/2024 12:31:54 vaginal yeast infection: care instructions mshenouda Not available 04/18/2024 12:31:54 iron deficiency anemia: care instructions mshenouda Not available 04/18/2024 12:31:54 heart failure: care instructions mshenouda Not available 04/18/2024 12:31:54 learning about heart failure mshenouda Not available 04/18/2024 12:31:54 06/18/2024 [id number] learning about swallowing problems mshenouda Not available 06/18/2024 12:41:18 mammogram: about this test mshenouda Not available 06/18/2024 12:41:18 heart failure: care instructions mshenouda Not available 06/18/2024 12:41:18 learning about heart failure mshenouda Not available 06/18/2024 12:41:18 10/08/2024 [id number] mammogram: about this test mshenouda Not available 10/08/2024 12:13:06 high cholesterol : care instructions mshenouda Not available 10/08/2024 12:13:06 carotid stenosis : care instructions mshenouda Not available 10/08/2024 12:13:05 iron deficiency anemia: care instructions mshenouda Not available 10/08/2024 12:13:06 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 [facility] [place] [address] [place], [address], 01/11/2024 12:52:09 04/03/20 24 04/02/2024 XR, chest , 2 view No observ ation record ed. [address], [place], [address], 04/18/2024 12:11:50 04/05/20 24 04/05/2024 XR, chest , 2 view No observ ation record ed. [address], [place], [address], 04/18/2024 12:11:49 05/16/20 24 05/16/2024 XR, chest , 2 view No observ ation record ed. [facility] [address] [place], [address], 06/18/2024 12:28:47 10/23/19 25 10/23/2024 XR, chest , 2 view No observ ation record ed. [facility] [place] [address] [place], [address], 10/24/2024 16:52:49 10/23/19 25 10/23/2024 CT, chest + abdom en + pelvi s, w/o contr ast No observ ation record ed. [address] [place], [address], 10/24/2024 18:57:22 11/27/19 25 11/26/2024 US, liver No observ ation record ed. [facility] [address], [place], [address], 11/28/2024 13:45:59 01/16/20 25 01/15/2025 XR, hip, bilat eral No observ ation record ed. [facility] [address], [place], [address], 01/31/2025 13:30:09 Result Notes None recorded. Problems Name Problem SNOMED Code Status Onset Date Resolution Date Notes Provider Name and Address Organization Details Recorded Time Congestiv e heart failure 07391591 Active 2023 Ashlee Doyle MD [address], [place], [address] , [facility] 4 12:20:10 Iron deficienc y anemia 18260762 Active 2023 Ashlee Doyle MD [address], [place], [address] , [facility] 4 12:22:31 Left bundle branch block 64166177 Active 2023 Ashlee Doyle MD [address], [place], [address] , [facility] 4 12:26:56 Stasis dermatiti s 30917348 Active 2023 Ashlee Doyle MD [address], [place], [address] , [place] [facility] 4 12:34:37 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 2023 Ashlee Doyle MD [address], [place], [address] , [facility] 4 17:34:02 CT of abdomen abnormal 08574234487 943167 Active 2024 Ashlee Doyle MD [address], [place], [address] , [facility] 5 20:40:35 Prediabet es 398342793 Active 2024 Dxed by A1c 6.2% on 10/23/24 Ashlee Doyle MD [address] [facility] [address], [place], [address] , [facility] 5 21:01:29 Benign hypertens ion 17348430 Active 2016 Not Available [facility] 3 14:49:31 Hyperlipi demia 94467353 Active 2016 Not Available [facility] 3 14:49:31 Hemorrhoi ds 48064149 Active 2016 Not Available [facility] 3 14:49:31 Left bundle branch block 18808670 Active 2016 sees cardiolog y once a year Not Available [facility] 3 14:49:31 Osteopeni a 156897439 Active 2016 Not Available [facility] 3 14:49:31 Osteoarth ritis 074494593 Active 2016 Not Available [facility] 3 14:49:31 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 Not Available [facility] 3 14:49:31 Transient cerebral ischemia 646213367 Active 2016 Not Available [facility] 3 14:49:31 Allergic rhinitis 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 31193243 Active 2016 Not Available [facility] 3 14:49:31 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 215124472 Active 2016 Not Available [facility] 3 14:49:31 Carotid artery stenosis 30879520 Active 2016 Not Available [facility] 3 14:49:31 Focal onset epileptic seizure 31810869 Active 2017 Not Available [facility] 3 14:49:31 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 597029744 Active 2017 Not Available [facility] 3 14:49:31 History of Malignant melanoma 440152957 Active 2018 Not Available [facility] 3 14:49:31 Gastroeso phageal reflux disease without esophagit is 726809754 Active 2018 Not Available [facility] 3 14:49:31 Ophthalmi c migraine 96927077 Active 2018 on ophth note 07/24/19 Not Available [facility] 3 14:49:31 Open-angl e glaucoma of left eye 018637441 Active 2018 on ophth note 07/24/19 Not Available [facility] 3 14:49:31 Idiopathi c periphera l neuropath y 40562130 Active 2019 Not Available [facility] 3 14:49:31 Family history of diabetes mellitus 073658445 Active 2019 Not Available [facility] 3 14:49:31 Neoplasm of supraclav icular region 253155552 Active 2020 Not Available [facility] 3 14:49:31 Hyponatre kasandra 48096783 Active 2020 Not Available [facility] 3 14:49:31 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, face AND/OR neck 92167967 Active 2020 Not Available [facility] 3 14:49:31 Coronary arteriosc lerosis 74765019 Active 2020 non occlusive per cardiolog y note 06/11/21 Not Available [facility] 3 14:49:31 Paroxysma l atrial fibrillat ion 013572178 Active 2020 Not Available [facility] 3 14:49:31 Diffuse high grade B-cell lymphoma 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 Active 2020 Not Available [facility] 3 14:49:31 Macrocyto sis 036953037 Active 2020 Not Available [facility] 3 14:49:31 History of SARS-CoV- 2 09368465494 2625685 Active 2021 Not Available [facility] 3 14:49:31 Long-term drug therapy Active 2021 Not Available [facility] 3 14:49:31 Increased frequency of urination 529330087 Active 2021 Not Available [facility] 3 14:49:31 Vitamin B deficienc y 22255499 Active 2022 Not Available [facility] 3 14:49:31 Mixed urinary incontine nce 783102500 Active 2022 Not Available [facility] 3 14:49:31 Hypomagne semia 468377879 Active 2022 Not Available [facility] 3 14:49:31 Mixed hyperlipi demia 102749725 Active 2022 Not Available [facility] 3 14:49:31 Insomnia 824016563 Active 2022 Not Available [facility] 3 14:49:31 Periphera l vascular disease 430208689 Active 2022 Ashlee Doyle MD [address], [place], [address] , [facility] 3 11:47:35 Anemia 144447476 Active 2023 Ashlee Doyle MD [address], [place], [address] , [facility] 4 22:05:29 Body mass index less than 20 373573043 Active 2023 Ashlee Doyle MD [address], [place], [address] , [facility] 4 11:56:56 Dysphagia 99577317 Active 2023 Ashlee Doyle MD [address], [place], [address] , [facility] 4 14:14:25 Mild memory disturban ce 682051376 Active 2023 Ashlee Doyle MD [address], [place], [address] , [facility] 4 13:46:21 Problem Notes None recorded. Procedures Surgical History Date Name Laterality Status Provider Name and Address Organization Details Recorded Time Partial Hysterectomy completed Ashlee Doyle MD [address], [place], [address], [facility] 05/10/2017 15:03:45 Imaging Results None recorded. Procedure Notes None recorded. Medical Equipment None Reported. Allergies Allergen ID Allergen Name Allergen Category Reaction Reaction Severity Criticality Documentation Date Start Date Code Code System Note Provider Name and Address Organization Details Recorded Time 93614 solifenac in medicatio n dry mouth Not available Not available 10/12/2022 29642 7 RxNorm Not Available [facility] 3 14:49:32 55138 sulfur dioxide medicatio n facial swelling Not available Not available 01/11/2025 65702 79 RxNorm Not Available [facility] External Data Service - prod 5 10:56:21 5921 Substance with sulfonami de structure and antibacte rial mechanism of action (substanc e) medicatio n other Not available Not available 05/10/2017 10145 8003 SNOMED swell ing Ashlee Doyle MD [address], [place], [address], [facility] 7 15:03:33 Medications Name Sig Start [...] n 250 mg tablet TAKE 2 TABLETS (500 MG) BY ORAL ROUTE ONCE DAILY FOR 1 DAY THEN 1 TABLET (250 MG) BY ORAL ROUTE ONCE DAILY FOR 4 DAYS 2024 active Not Available Not Available Not Avai lable cetirizine 5 mg tablet TAKE 1 TABLET [...] propionate 50 mcg/actuati on nasal spray,suspe nsion SPRAY 1 SPRAY IN EACH NOSTRIL DAILY 2024 active Not Available Not Available Not Avai lable ipratropium bromide 21 mcg (0.03 %) nasal [...] tablet every 12 hours by oral route. 2024 active Not Available Not Available Not Avai lable solifenacin 5 mg tablet TAKE 1 TABLET [...] Not Available Not Avai lable Fluzone High-Dose (PF) 180 mcg/0.5 mL intramuscul [...] Updated DateTime 5 167.64 cm 18.9 kg/m2 31682.3 1 g 97.6 [degF] 18 /min 71 /min 101 mm[Hg] 53 mm[Hg] Migdalia Peraza [facility] 5 11:38:34 Date Recorded Body height Body mass index (BMI) Body weight Body temperature Respiratory rate Heart rate Systolic blood pressure Diastolic blood pressure Provider Name and Address Organization Details Last Updated DateTime 4 167.64 cm 19.7 kg/m2 95605.2 7 g 97.6 [degF] 18 /min 69 /min 113 mm[Hg] 70 mm[Hg] Migdalia Peraza [facility] 4 12:39:12 Date Recorded Body height Body temperature Respiratory rate Heart rate Body mass index (BMI) Body weight Systolic blood pressure Diastolic blood pressure Provider Name and Address Organization Details Last Updated DateTime 4 167.64 cm 97.8 [degF] 18 /min 66 /min 19.4 kg/m2 03350.0 8 g 128 mm[Hg] 65 mm[Hg] Migdalia Peraza [facility] 4 15:19:20 Date Recorded Body height Body temperature Body mass index (BMI) Body weight Respiratory rate Heart rate Systolic blood pressure Diastolic blood pressure Provider Name and Address Organization Details Last Updated DateTime 4 167.64 cm 97.5 [degF] 19 kg/m2 40521.9 g 18 /min 69 /min 124 mm[Hg] 65 mm[Hg] [facility] 4 11:49:45 Date Recorded Body height Body temperature Respiratory rate Body mass index (BMI) Body weight Heart rate Systolic blood pressure Diastolic blood pressure Provider Name and Address Organization Details Last Updated DateTime 4 167.64 cm 97.5 [degF] 18 /min 19.4 kg/m2 27373.0 8 g 67 /min 108 mm[Hg] 59 mm[Hg] [facility] 4 12:03:26 Social History Question Answer Notes LastModified by Organizat ion Details LastModified Time Tobacco Smoking Status Never Smoker Ashlee Doyle MD [address] [facility] [address], [place], [address], [facility] 05/10/2017 15:11:55 What Is Your Level Of Caffeine Consumption? [...] For COVID-19? No Information not available 02/29/2020 Which Illicit Or Recreational Drugs Have You [...] Is Active? No Information not available 01/13/2021 Are There Any Guns Present In Your Home? No Information not available 01/13/2021 High Number Of Sexual Partners No Information not available 01/13/2021 History Of Inconsistent/no Condom Use No Information not available 01/13/2021 Live Alone Or With Others? Alone Information not available 05/10/2017 Marital Status Informatio n not available 05/10/2017 What Was The Date Of Your Most Recent Tobacco Screening? 07/09/2022 [email or web address] Information not available 07/09/2022 Mother With HIV? [...] Functional Status Question Answer Note LastModified by Organizat ion Details LastModified Time What is your level of alcohol consumption? Occasional Information not available 05/10/2017 Are you currently employed? No Information not available 05/10/2017 Are you able to care for yourself? Yes Information not available 05/10/2017 What is your occupation? retired Information not available 05/10/2017 Mental Status None recorded. Family [...] preservative 8 completed Ashlee Doyle MD [address], [place], [address], [facility] 06/12/2023 16:15:07 zoster recombinant 9 jacinto Doyle MD [address], [place], [address], [facility] 06/12/2023 16:15:07 zoster live 9 completed Ashlee Doyle MD [address], [place], [address], [facility] 06/12/2023 16:15:08 zoster live 9 completed Ashlee Doyle MD [address], [place], [address], [facility] 06/12/2023 16:15:08 Influenza, split virus, quadrivalent, preservative 9 completed Ashlee Doyle MD [address], [place], [address], [facility] 06/12/2023 16:15:07 Influenza, split virus, quadrivalent, preservative 0 completed Ashlee Doyle MD [address], [place], [address], [facility] 06/12/2023 16:15:07 SARS-COV-2 (COVID-19) vaccine, UNSPECIFIED 1 completed Ashlee Doyle MD [address], [place], [address], [facility] 06/12/2023 16:15:07 COVID-19, mRNA, LNP-S, PF, 30 mcg/0.3 mL dose 1 completed Ashlee Doyle MD [address], [place], [address], [facility] 06/12/2023 16:15:07 Influenza, split virus, quadrivalent, preservative 1 completed Ashlee Doyle MD [address], [place], [address], [facility] 06/12/2023 16:15:07 COVID-19, mRNA, LNP-S, PF, 30 mcg/0.3 mL dose 2 completed Ashlee Doyle MD [address], [place], [address], [facility] 06/12/2023 16:15:07 Influenza, high-dose, quadrivalent, PF 2 completed Ashlee Doyle MD [address], [place], [address], [facility] 06/12/2023 16:15:07 Influenza, MDCK, quadrivalent, PF 3 completed Ashlee Doyle MD [address], [place], [address], [facility] 06/12/2023 16:15:07 RSV, recombinant, protein subunit RSVpreF, adjuvant reconstituted, 0.5 mL, PF 3 completed Ashlee Doyle MD [address], [place], [address], [facility] 06/12/2023 16:15:07 COVID-19, mRNA, LNP-S, PF, nicole-sucrose, 30 mcg/0.3 mL 3 completed Ashlee Doyle MD [address], [place], [address], [facility] 06/12/2023 16:15:07 COVID-19, mRNA, LNP-S, PF, nicole-sucrose, 30 mcg/0.3 mL 4 completed Ashlee Doyle MD [address], [place], [address], [facility] 06/01/2024 14:33:16 COVID-19, mRNA, LNP-S, PF, nicole-sucrose, 30 mcg/0.3 mL 4 completed Ashlee Doyle MD [address], [place], [address], [facility] 06/01/2024 14:33:16 Influenza, high-dose, trivalent, PF 4 completed Ashlee Doyle MD [address], [place], [address], [facility] 06/01/2024 14:33:16 COVID-19, mRNA, LNP-S, PF, nicole-sucrose, 30 mcg/0.3 mL 5 completed Ashlee Doyle MD [address], [place], [address], [facility] 12/26/2024 19:01:03 Td(adult) unspecified formulation 6 completed Ashlee Doyle MD [address], [place], [address], [facility] 06/12/2023 16:15:07 Influenza, split virus, quadrivalent, preservative 6 completed Ashlee Doyle MD [address], [place], [address], [facility] 06/12/2023 16:15:07 Influenza, split virus, quadrivalent, preservative 7 completed Ashlee Doyle MD [address], [place], [address], [facility] 06/12/2023 16:15:07 Pneumococcal conjugate PCV 13 5 completed Ashlee Doyle MD [address], [place], [address], [facility] 06/12/2023 16:15:08 pneumococcal polysaccharide PPV23 9 completed Ashlee Doyle MD [address], [place], [address], [facility] 06/12/2023 16:15:07 zoster live 0 completed Ashlee Doyle MD [address], [place], [address], [facility] 06/12/2023 16:15:08 Hep B, unspecified formulation 8 completed Ashlee Doyle MD [address], [place], [address], [facility] 06/12/2023 16:15:08 Hep A, adult 8 completed Ashlee Doyle MD [address], [place], [address], [facility] 06/12/2023 16:15:08 Past Encounters Encounter ID Performer Location Encounter Start Date Encounter Closed Date Diagnosis/Indication Diagnosis SNOMED-CT Code Diagnosis ICD10 Code Diagnosis Note [id number] Ashlee Doyle MD [employer] [facility], [facility] [address] [place] [address] 05/10/2017 13:31:26 05/10/2017 15:39:20 Hyperlipidemia 71162819 E78.5 Left bundl e branch block 35141141 I44.7 Osteopenia 485293127 M85 .80 per pt had DEXA 03/2017 Transient cerebral ischemia 201985178 G45.9 Allergic r hinitis 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 78424497 J30.1 Age relate d macular degeneration 460772531 H35.30 sees ophth every 6 months Benign hypertension 1072 5009 I10 Screening mammography 24 881213 Z12.31 per pt had mammogram 01/2017 Screening for malignant neoplasm of cervix 285171854 Z12.4 Screening for malignant neoplasm of colon 849006062 Z12.11 per pt had C scope 2013 ?? [id number] Ashlee Doyle MD [employer] [facility], [facility] [address] [place] [address] 08/29/2017 14:57:53 08/29/2017 15:28:41 Benign hypertension 46501787 I10 Hyperlipidemia 56870688 E78.5 Osteoarthritis 736844378 M19.90 Carotid ar petar stenosis 31205725 I65.29 Screening for malignant neoplasm of colon 578343874 Z12.11 last C scope 11/06/13 , good for 10 years [id number] Ashlee Doyle MD [employer] [facility], [facility] [address] [place] [address] 09/21/2017 10:11:41 09/21/2017 10:59:28 Cough 18171607 R05 Diarrhea 41117602 R19.7 [id number] Ashlee Doyle MD [employer] [facility], [facility] [address] [place] [address] 11/28/2017 12:38:10 11/28/2017 13:40:04 Adult health examination 100292047 Z00.00 Benign hypertension 1072 5009 I10 good control Hyperlipidemia 80652283 E78.5 recheck Osteopenia 438146928 M85 .80 per pt had DEXA 03/2017 Carotid ar petar stenosis 43147476 I65.29 last U/S 09/22/17 Transient cerebral ischemia 964828712 G45.9 ASA 83 , no recurrence Age relate d macular degeneration 632740032 H35.30 sees ophth every 6 months 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 , asymptomat ic for now Osteoarthritis 527471480 M19.90 Left bundl e branch block 14270641 I44.7 will check EKG Hemorrhoids 30395891 K64 .9 Polyuria 45263542 R35.8 Screening for malignant neoplasm of colon 133556937 Z12.11 last C scope 11/06/13 , good for 10 years Screening mammography 24 319512 Z12.31 per pt had mammogram 01/2017 Screening for malignant neoplasm of cervix 996980124 Z12.4 per pt had PAP 06/2017 47713 Ashlee Doyle MD [employer], [employer] [address] [place] [address] 02/28/2018 13:37:07 02/28/2018 14:29:09 Benign hypertension 14839351 I10 good control Osteopenia 554200252 M85 .80 per pt had DEXA 03/2017 Transient cerebral ischemia 379959611 G45.9 ASA 81 , no recurrence Carotid ar petar stenosis 16554707 I65.29 last U/S 2015 Screening mammography 24 591176 Z12.31 per pt had mammogram 01/2018 Screening for malignant neoplasm of colon 859054035 Z12.11 last C scope 11/06/13 , good for 10 years [id number] Ashlee Doyle MD [employer], [facility] [address] [place] [address] 06/16/2018 12:54:37 06/16/2018 13:53:05 Gastroesophageal reflux disease without esophagitis 022666536 K21.9 Hyperlipidemia 15745310 E78.5 last LDL 11/2017 Sinusitis 56779473 J32.9 Benign hypertension 1072 5009 I10 good control Screening mammography 24 521487 Z12.31 per pt had mammogram 01/2018 Screening for malignant neoplasm of cervix 434496688 Z12.4 per pt had PAP 06/2017 Screening for malignant neoplasm of colon 047715267 Z12.11 last C scope 11/06/13 , good for 10 years Active or passive immunization 941691650 Z23 Carotid ar petar stenosis 82651012 I65.29 last U/S 2015 ., per pt cardiology is repeating [id number] Ashlee Doyle MD [employer], [facility] [address] [place] [address] 10/03/2018 14:57:58 10/03/2018 16:11:48 Benign hypertension 74528135 I10 good control Carotid ar petar stenosis 63474150 I65.29 last U/S 08/10/18 ., per pt cardiology is repeating Transient cerebral ischemia 480869771 G45.9 ASA 81 , no recurrence Vitamin D deficiency 347 90016 E55.9 Gastroesop hageal reflux disease without esophagitis 961949981 K21.9 Sinusitis 73188569 J32.9 Screening mammography 24 004713 Z12.31 per pt had mammogram 01/2018 Screening for malignant neoplasm of cervix 166805766 Z12.4 per pt had PAP 06/2017 Hemorrhoids 45996295 K64 .9 Screening for malignant neoplasm of colon 379295167 Z12.11 last C scope 11/06/13 , good for 10 years Mixed hyperlipidemia 267 066140 E78.2 [id number] Ashlee Doyle MD [employer], [employer] [address] [place] [address] 01/05/2019 12:24:53 01/05/2019 13:06:15 Adult health examination 659906966 Z00.01 Benign hypertension 1072 5009 I10 good control Hyperlipidemia 40097856 E78.5 last LDL 01/01/19 Left bundl e branch block 21141238 I44.7 will check EKG Osteopenia 845645122 M85 .80 per pt had DEXA 03/2017 Osteoarthritis 414597484 M19.90 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 , asymptomat 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 now Age relate d macular degeneration 968792515 H35.30 sees ophth every 6 months Allergic r hinitis 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 09387192 J30.1 Carotid ar petar stenosis 88437229 I65.29 last U/S 08/10/18 ., per pt cardiology is repeating 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 no recurrence Hemorrhoids 71684300 K64 .9 History of Malignant melanoma 643644994 Z85.820 Screening mammography 24 767091 Z12.31 per pt had mammogram 01/2018 Screening for malignant neoplasm of cervix 718407680 Z12.4 per pt had PAP 06/2017 Screening for malignant neoplasm of colon 044863697 Z12.11 last C scope 11/06/13 , good for 10 years [id number] Ashlee Doyle MD [employer], [employer] [address] [place] [address] 04/10/2019 11:48:21 04/10/2019 12:24:24 Benign hypertension 20906694 I10 good control Hyperlipidemia 94011108 E78.5 last LDL 01/01/19 Osteopenia 171291407 M85 .80 per pt had DEXA 05/12/2017 Carotid ar petar stenosis 20104497 I65.29 last U/S 08/10/18 ., per pt cardiology is repeating Screening mammography 24 303097 Z12.31 per pt had mammogram 01/2018 Screening for malignant neoplasm of colon 194633151 Z12.11 last C scope 11/06/13 , good for 10 years [id number] Ashlee Doyle MD [employer], [employer] [address] [place] [address] 07/03/2019 11:59:15 07/03/2019 12:33:09 Benign hypertension 70785977 I10 per pt BP on the low side , will decrease irbesartan to 1/2 tab of 75 , BP 2 weeksseen ophth 06/2019 Hyperlipidemia 98643645 E78.5 last LDL 01/01/19 Osteopenia 905973371 M85 .80 per pt had DEXA 05/12/2017 Carotid ar petar stenosis 06770694 I65.29 last U/S 08/10/18 ., per pt cardiology is repeating Gastroesop hageal reflux disease without esophagitis 751350035 K21.9 Sinusitis 03978627 J32.9 Screening mammography 24 440468 Z12.31 per pt had mammogram 02/2019 Screening for malignant neoplasm of cervix 279496893 Z12.4 per pt had PAP 06/2017 Screening for malignant neoplasm of colon 670090652 Z12.11 last C scope 11/06/13 , good for 10 years Active or passive immunization 809527654 Z23 up to date [id number] Ashlee Doyle MD [employer], [facility] [address] [place] [address] 10/08/2019 14:13:26 10/08/2019 15:12:20 Benign hypertension 48242674 I10 seen ophth 06/2019 Carotid ar petar stenosis 88519556 I65.29 last U/S 08/10/18 ., Hyperlipidemia 38740899 E78.5 last LDL 01/01/19 History of Malignant melanoma 271228515 Z85.820 sees derm on yearly basis Osteoarthritis 778107050 M19.90 Osteopenia 731895836 M85 .80 per pt had DEXA 05/12/2017 Screening mammography 24 525848 Z12.31 per pt had mammogram 02/2019 Screening for malignant neoplasm of colon 715951008 Z12.11 last C scope 11/06/13 , good for 10 years Active or passive immunization 694391244 Z23 up to date [id number] [facility] [employer], [facility] [address] [place] [address] 11/19/2019 11:02:38 11/19/2019 11:38:22 Varicose veins of lower extremity 55354976 I83.93 Skin nodule 72879234 R22 .9 left coates - Pain in le ft lower limb 146742635 M79.605 medial and lateral of lower calf Paresthesi a of lower extremity 113174069 R20.2 off and on x 6 months - left pretibial area - no numbness or weaknessoc curs occasional ly - [id number] Ashlee Doyle MD [employer], [facility] [address] [place] [address] 02/29/2020 12:53:53 02/29/2020 13:37:18 Adult health examination 155092271 Z00.01 Benign hypertension 1072 5009 I10 seen ophth 06/2019 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 06949 I82.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 , asymptomat ic for now Age relate d macular degeneration 623584068 H35.30 sees ophth every 6 months Allergic r hinitis 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 88788352 J30.1 stable on OTC meds Carotid ar petar stenosis 82119217 I65.29 last U/S 08/10/18 ., Gastroesop hageal reflux disease without esophagitis 627541930 K21.9 stable on diet control History of Malignant melanoma 787769728 Z85.820 sees derm on yearly basis Hyperlipidemia 90004709 E78.5 last LDL 01/01/19 Left bundl e branch block 95307812 I44.7 will check EKG 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.B0 less than 2 times a month Osteoarthritis 617680620 M19.90 tylenol 500 TID Osteopenia 275952144 M85 .80 per pt had DEXA 05/12/2017 Focal onse t epileptic seizure 88613429 G40.109 no recurrence Transient cerebral ischemia 037176466 G45.9 ASA 81 , no recurrence Screening mammography 24 892449 Z12.31 per pt had mammogram 02/2019 Screening for malignant neoplasm of cervix 901035340 Z12.4 per pt had PAP 06/2017 Screening for malignant neoplasm of colon 517476942 Z12.11 last C scope 11/06/13 , good for 10 years Active or passive immunization 904937982 Z23 up to date [id number] Ashlee Doyle MD [employer], [facility] [address] [facility] [address] [address] [address] [place] [address] 05/30/2020 12:46:46 05/30/2020 13:45:24 Benign hypertension 10911777 I10 seen ophth 06/2019hol d irbesartan 3 weeks to see if it will help with ST Allergic r hinitis 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 47867446 J30.1 stable on OTC meds Carotid ar petar stenosis 99583132 I65.29 last U/S 08/10/18 ., Gastroesop hageal reflux disease without esophagitis 317926954 K21.9 stable on diet control Hyperlipidemia 48228272 E78.5 last LDL 03/06/20 Osteopenia 791528331 M85 .80 per pt had DEXA 05/12/2017 Transient cerebral ischemia 000579154 G45.9 ASA 81 , no recurrence Idiopathic peripheral neuropathy 73424476 G60.9 per neurology notedeclin e meds Chronic sore throat 2754 44543 J31.2 Family his tory of diabetes mellitus 316990474 Z83.[address] A1c 11/19/19 Screening mammography 24 338022 Z12.31 per pt had mammogram 02/2019 Screening for malignant neoplasm of colon 612669127 Z12.11 last C scope 11/06/13 , good for 10 years Active or passive immunization 126621280 Z23 up to date [id number] Ashlee Doyle MD [employer], [employer] [address] [place] [address] 01/13/2021 16:32:19 01/13/2021 17:26:08 Localized swelling, mass and lump, neck 803019928 R22.1 Benign hypertension 1072 5009 I10 seen ophth 06/2019hol d irbesartan 3 weeks to see if it will help with ST Carotid ar petar stenosis 22470953 I65.29 last U/S 06/12/20 History of Malignant melanoma 806861706 Z85.820 sees derm on yearly basis Hyperlipidemia 24863483 E78.5 last LDL 03/06/20 Idiopathic peripheral neuropathy 63447838 G60.9 per neurology notedeclin e meds Osteopenia 653961132 M85 .80 per pt had DEXA 03/06/20 Right uppe r quadrant pain 108632686 R10.11 Screening mammography 24 605556 Z12.31 per pt had mammogram 06/20/20 Screening for malignant neoplasm of cervix 209120653 Z12.4 per pt had PAP 06/2017 Screening for malignant neoplasm of colon 304659966 Z12.11 last C scope 11/06/13 , good for 10 years Active or passive immunization 002520801 Z23 up to date [id number] Ashlee Doyle MD [employer], [facility] [address] [place] [address] 01/27/2021 12:22:08 01/27/2021 13:08:34 Neoplasm of supraclavicular region 379446722 D49.89 Rt Hyponatremia 16606324 E8 7.1 no salt restrictio n [id number] Ashlee Doyle MD [employer], [employer] [address] [place] [address] 02/04/2021 11:46:37 02/04/2021 12:31:51 Swelling of upper limb 386936733 R22.31 Pain of ri ght shoulder joint 1760507264 5720286 M25.511 [id number] Ashlee Doyle MD [employer] [facility], [employer] [address] [place] [address] 06/23/2021 11:52:57 06/23/2021 12:46:00 Paroxysmal atrial fibrillation 090806110 I48.0 on amiodarone and eliquis Pneumonia 628837103 J18. 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 S/P 4 cycles R-CHOP 04/2021 Hyperlipidemia 10856451 E78.5 last LDL 03/06/20 Allergic r hinitis 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 57117156 J30.1 stable on OTC meds Osteopenia 334179388 M85 .80 per pt had DEXA 03/06/20 Idiopathic peripheral neuropathy 46244269 G60.9 per neurology notedeclin e meds Gastroesop hageal reflux disease without esophagitis 775164335 K21.9 stable on diet control Screening mammography 24 948262 Z12.31 per pt had mammogram 06/20/20 Screening for malignant neoplasm of cervix 443770767 Z12.4 per pt had PAP 06/2017 Screening for malignant neoplasm of colon 523118268 Z12.11 last C scope 11/06/13 , good for 10 years Active or passive immunization 187066685 Z23 up to dateflu shot and COVID booster Adult heal th examination 556546444 Z00.01 last ophth eval 05/2021 Coronary arteriosclerosis 22330680 I25.10 asymptomat icmild per cardiology note Carotid ar petar stenosis 68423027 I65.29 last U/S 06/12/20 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 24326 I82.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 , asymptomat ic for now Benign hypertension 1072 5009 I10 seen ophth 06/2019goo d off irbesartan Age relate d macular degeneration 371465630 H35.30 sees ophth every 6 months Hemorrhoids 75212189 K64 .9 Left bundl e branch block 16589696 I44.7 asymptomat icseen cardiology 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.B0 less than 2 times a month [id number] Ashlee Doyle MD [employer], [employer] [address] [place] [address] 12/11/2021 12:26:26 12/23/2021 18:32:01 Benign hypertension 36762293 I10 seen ophth 11/2021good off irbesartan Carotid ar petar stenosis 68553402 I65.29 last U/S 06/12/20hav ing US 12/15/21 Coronary arteriosclerosis 84765170 I25.10 asymptomat icmild per cardiology note Hyperlipidemia 69563210 E78.5 last LDL 03/06/20car diology changed to rosuva 5 Idiopathic peripheral neuropathy 05187379 G60.9 per neurology notedeclin e meds 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, face AND/OR neck 26150209 C85.91 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.B0 less than 2 times a monthhavin g MRI of brain 12/15/21 Paroxysmal atrial fibrillation 106869000 I48.0 cardiology had holter ,cardiolog y stopped amiodarone and toprol Screening mammography 24 298779 Z12.31 per pt had mammogram 09/21/21 Screening for malignant neoplasm of cervix 788122665 Z12.4 per pt had PAP 06/2017 Screening for malignant neoplasm of colon 804813991 Z12.11 last C scope 11/06/13 , good for 10 years Active or passive immunization 043048033 Z23 up to dateflu shot and COVID booster History of SARS-CoV-2 29 29826064 08859192 Z86.16 tested +ve 10/2021 Long-term drug therapy 321884494 Z79.899 statin 471371 Ashlee Doyle MD [employer], [employer] [address] [place] [address] 01/28/2022 11:28:38 01/28/2022 12:24:45 Arthritis of hand 004188995 M13.849 labs @ ER (CBC,CMP,U ron acid and ESR) were NLX ray showed OA Benign hypertension 1072 5009 I10 seen ophth 11/2021good off irbesartan Carotid ar petar stenosis 41985764 I65.29 last U/S 07/13/21 Coronary arteriosclerosis 99243864 I25.10 asymptomat icmild per cardiology note Diffuse hi gh grade B-cell lymphoma 157505120 C83.30 S/P 4 cycles R-CHOP 04/2021 Hyperlipidemia 83824916 E78.5 last LDL 12/24/21card iology changed to rosuva 5 Idiopathic peripheral neuropathy 98093366 G60.9 per neurology notedeclin e medslast B12 08/11/21 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.B0 less than 2 times a monthhavin g MRI of brain 12/15/21 Paroxysmal atrial fibrillation 902742935 I48.0 cardiology had holter ,cardiolog y stopped amiodarone and toprol Screening mammography 24 139716 Z12.31 per pt had mammogram 09/21/21 Screening for malignant neoplasm of cervix 987367270 Z12.4 per pt had PAP 06/2017 Screening for malignant neoplasm of colon 804517127 Z12.11 last C scope 11/06/13 , good for 10 years Active or passive immunization 056077115 Z23 up to dateflu shot and COVID booster Allergic r hinitis 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 70875797 J30.1 stable on OTC meds 512006 Ashlee Doyle MD [employer], [employer] [address] [place] [address] 04/02/2022 12:41:21 04/02/2022 13:38:06 Acute urinary tract infection 037817381 N39.0 Low back pain 419317202 M54.50 Congestion of nasal sinus 44303300 R09.81 Benign hypertension 1072 5009 I10 seen ophth 11/2021good off irbesartan Screening mammography 24 779598 Z12.31 per pt had mammogram 09/21/21 Active or passive immunization 932786237 Z23 up to dateflu shot and COVID booster [id number] Ashlee Doyle MD [employer], [facility] [address] [place] [address] 07/09/2022 12:26:29 07/09/2022 13:18:33 Adult health examination 441489469 Z00.01 last ophth eval 05/2022 Benign hypertension 1072 5009 I10 seen ophth 11/2021good off irbesartan Allergic r hinitis 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 31148050 J30.1 stable on OTC meds Carotid ar petar stenosis 70594758 I65.29 last U/S 07/13/21 Coronary arteriosclerosis 82866124 I25.10 asymptomat icmild per cardiology note Diffuse hi gh grade B-cell lymphoma 030044363 C83.30 S/P 4 cycles R-CHOP 04/2021 Gastroesop hageal reflux disease without esophagitis 231647232 K21.9 stable on diet control History of Malignant melanoma 018018922 Z85.820 sees derm on yearly basis History of SARS-CoV-2 29 93081404 77098323 Z86.16 tested +ve 10/2021 Hyperlipidemia 30872999 E78.5 last LDL 12/24/21card iology changed to rosuva 5 Idiopathic peripheral neuropathy 55482460 G60.9 per neurology notedeclin e medslast B12 08/11/21 Left bundl e branch block 14916399 I44.7 asymptomat icseen cardiology Long-term drug therapy 671192626 Z79.899 statin Open-angle glaucoma of left eye 396690793 H40.1130 ophth eval 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.B0 less than 2 times a monthhavin g MRI of brain 12/15/21 Osteoarthritis 519971784 M19.90 tylenol 500 TID Osteopenia 085709352 M85 .80 per pt had DEXA 03/06/20 Paroxysmal atrial fibrillation 275082494 I48.0 cardiology had holter ,cardiolog y stopped amiodarone and toprol Focal onse t epileptic seizure 90152168 G40.109 no recurrence Screening mammography 24 961066 Z12.31 per pt had mammogram 09/21/21 Screening for malignant neoplasm of cervix 869398082 Z12.4 per pt had PAP 06/2017 Screening for malignant neoplasm of colon 765052272 Z12.11 last C scope 11/06/13 , good for 10 years Active or passive immunization 584960301 Z23 up to dateflu shot and COVID booster Increased frequency of urination 128494074 R35.0 Hemorrhoids 63260491 K64 .9 Congestion of nasal sinus 30005202 R09.81 615652 Ashlee Doyle MD [employer], [employer] [address] [place] [address] 10/12/2022 12:17:42 10/12/2022 13:49:28 Benign hypertension 23420662 I10 seen ophth 11/2021good off irbesartan last EKG 06/28/22 Carotid ar petar stenosis 65900449 I65.29 last U/S 07/13/21 Coronary arteriosclerosis 79451413 I25.10 asymptomat icmild per cardiology note Gastroesop hageal reflux disease without esophagitis 524407023 K21.9 stable on diet control Hyperlipidemia 47486223 E78.5 last LDL 12/24/21card iology changed to rosuva 5 Paroxysmal atrial fibrillation 679020256 I48.0 cardiology had holter ,cardiolog y stopped amiodarone and toprolchad score 4-5 Diffuse hi gh grade B-cell lymphoma 725805264 C83.30 S/P 4 cycles R-CHOP 04/2021 Vitamin B deficiency 479 54461 E53.9 Screening mammography 24 110107 Z12.31 per pt had mammogram 09/21/21 Long-term drug therapy 986316687 Z79.899 statin Screening for malignant neoplasm of cervix 571644851 Z12.4 per pt had PAP 06/2017 Screening for malignant neoplasm of colon 713946735 Z12.11 last C scope 11/06/13 , good for 10 years Active or passive immunization 531323507 Z23 up to dateflu shot and COVID booster Mixed urin vini incontinence 972261924 N39.46 380891 Ashlee Doyle MD [employer], [employer] [address] [place] [address] 01/26/2023 11:04:40 01/26/2023 11:53:47 Atrial fibrillation 32527621 I48.91 stablesees cardiology on reg basis Benign hypertension 1072 5009 I10 seen ophth 08/2022 per ptlast EKG 01/04/23 Osteoarthritis 772929019 M19.90 tylenol 500 TID Arthritis of hand 509393 005 M13.849 labs @ ER (CBC,CMP,U ron acid and ESR) were NLX ray showed OA Age relate d macular degeneration 021380178 H35.30 sees ophth every 6 months Carotid ar petar stenosis 09132576 I65.29 last U/S 07/13/21 Hyperlipidemia 18142365 E78.5 last LDL 12/24/21card iology changed to rosuva 5 Idiopathic peripheral neuropathy 64734638 G60.9 per neurology notedeclin e medslast B12 08/11/21 Long-term drug therapy 021888842 Z79.899 statin 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.B0 less than 2 times a monthhavin g MRI of brain 12/15/21 Hypomagnesemia 033088580 E83.42 Hyponatremia 50263673 E8 7.1 no salt restrictio n Screening mammography 24 858165 Z12.31 per pt had mammogram 11/08/22 Screening for malignant neoplasm of cervix 290606719 Z12.4 per pt had PAP 06/2017 Screening for malignant neoplasm of colon 439627296 Z12.11 last C scope 11/06/13 , good for 10 years Active or passive immunization 421595860 Z23 up to dateflu shot and COVID booster [id number] Ashlee Doyle MD [employer], [facility] [address] [place] [address] 04/14/2023 11:58:27 04/14/2023 13:37:29 Cellulitis of lower leg 750529897 L03.119 Insomnia 944463877 G47.0 0 Benign hypertension 1072 5009 I10 seen ophth 08/2022 per ptlast EKG 01/04/23 Carotid ar petar stenosis 90595040 I65.29 last U/S 07/13/21 Paroxysmal atrial fibrillation 105856425 I48.0 cardiology had holter ,cardiolog y stopped amiodarone and toprolchad score 4-5anticoa gulation safty education Cough 43347631 R05.9 Hypomagnesemia 645462715 E83.42 Mixed hyperlipidemia 267 246753 E78.2 Long-term drug therapy 628731177 Z79.899 statin Screening mammography 24 153347 Z12.31 per pt had mammogram 11/08/22 Screening for malignant neoplasm of colon 587030868 Z12.11 last C scope 11/06/13 , good for 10 years Screening for malignant neoplasm of cervix 856924258 Z12.4 per pt had PAP 06/2017 Active or passive immunization 352882076 Z23 up to dateflu shot and COVID booster [id number] Ashlee Doyle MD [employer], [employer] [address] [place] [address] 06/16/2023 11:35:15 06/16/2023 13:03:22 Dysphagia 64135584 R13.10 Body mass index 20-24 - normal 967226392 Z68.20 down 10 LBs without trying Benign hypertension 1072 5009 I10 on the low side today , with light headinesss top amlodipine BP 2 weeksseen ophth 08/2022 per ptlast EKG 01/04/23 Dysuria 18649431 R30.0 Carotid ar petar stenosis 96303518 I65.29 last U/S 10/12/22 per pt Paroxysmal atrial fibrillation 614514056 I48.0 cardiology had holter ,anita score 4-5anticoa gulation safty education Screening mammography 24 422237 Z12.31 per pt had mammogram 11/08/22 Screening for malignant neoplasm of cervix 287172761 Z12.4 per pt had PAP 06/2017 Screening for malignant neoplasm of colon 716575952 Z12.11 last C scope 11/06/13 , good for 10 years Active or passive immunization 917722984 Z23 up to date Osteopenia 187462151 M85 .80 per pt had DEXA 11/08/22 Fatigue 84890297 R53.83 Hyperlipidemia 17062420 E78.5 last LDL 12/24/21card iology changed to rosuva 5 [id number] Ashlee Doyle MD [employer], [employer] [address] [place] [address] 06/27/2023 10:57:18 06/27/2023 12:29:38 Benign hypertension 50844388 I10 on the higher side @ homeadd 12.5 losartanBP 2 weeksseen ophth 08/2022 per ptlast EKG 01/04/23 Dysuria 01236216 R30.0 Hyponatremia 71076243 E8 7.1 no salt restrictio n Screening for malignant neoplasm of cervix 306986355 Z12.4 per pt had PAP 06/2017 Active or passive immunization 056264065 Z23 up to date Atrophic vaginitis 53923 000 N95.2 216489 Ashlee Doyle MD [employer] [facility], [facility] [address] [place] [address] 08/24/2023 10:58:39 08/24/2023 12:05:07 Benign hypertension 18049676 I10 good controlon 12.5 losartanBP 2 weeksseen ophth 08/2023 per ptlast EKG 01/04/23 Carotid ar petar stenosis 11699317 I65.29 last U/S 10/12/22 per pt Coronary arteriosclerosis 87780917 I25.10 asymptomat icmild per cardiology note Gastroesop hageal reflux disease without esophagitis 114397251 K21.9 GI add pantoprazo le 40 BID and carafate Hyponatremia 83183874 E8 7.1 no salt restrictio n Screening mammography 24 885661 Z12.31 per pt had mammogram 11/08/22 Screening for malignant neoplasm of cervix 581606750 Z12.4 per pt had PAP 06/2023 Screening for malignant neoplasm of colon 311335673 Z12.11 last C scope 11/06/13 , good for 10 years Active or passive immunization 847642907 Z23 up to date Adult heal th examination 724647181 Z00.01 last ophth eval 05/2023 Focal onse t epileptic seizure 31119279 G40.109 no recurrence Family his tory of diabetes mellitus 443161843 Z83.[address] A1c 05/13/23 Diffuse hi gh grade B-cell lymphoma 754245452 C83.30 S/P 4 cycles R-CHOP 04/2021 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 17827 I82.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 , asymptomat ic for now Age relate d macular degeneration 427532335 H35.30 sees ophth every 6 months Allergic r hinitis 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 72918348 J30.1 stable on OTC meds History of Malignant melanoma 513455417 Z85.820 sees derm on yearly basis History of SARS-CoV-2 29 00745248 92782632 Z86.16 tested +ve 10/2021 Hyperlipidemia 50545404 E78.5 last LDL 05/13/23car diology changed to rosuva 5 Hypomagnesemia 324573203 E83.42 last level 06/21/23 Idiopathic peripheral neuropathy 47123786 G60.9 per neurology notedeclin e medslast B12 06/21/23 Increased frequency of urination 699665936 R35.0 Insomnia 398352151 G47.0 0 better Left bundl e branch block 34526630 I44.7 asymptomat icseen cardiology Long-term drug therapy 002038361 Z79.899 statin , last A1c 05/11/23 Macrocytosis 889868355 D 75.89 last b12 06/27/23 Neoplasm o f supraclavicular region 458656134 D49.89 Rt 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.B0 less than 2 times a monthhavin g MRI of brain 12/15/21 Paroxysmal atrial fibrillation 529636770 I48.0 cardiology had holter ,anita score 4-5anticoa gulation safty education Transient cerebral ischemia 539416441 G45.9 ASA 81 , no recurrence Vitamin B deficiency 479 44728 E53.9 b12 06/21/23 Peripheral vascular disease 840730681 I73.9 per cardiology note 01/21/23 Advance di rective discussed with patient 859200521 Z71.89 education [id number] Ashlee Doyle MD [facility], [facility] [address] [place] [address] 11/23/2023 11:02:35 11/23/2023 12:01:52 Candidiasis of the esophagus 96475516 B37.81 had EGD 10/20/23 , had 2 rounds of fluconazol e Congestive heart failure 39023754 I50.9 last ECHO 10/2023 Anemia 780400429 D64.9 Paroxysmal atrial fibrillation 643835399 I48.0 cardiology had holter ,anita score 4-5anticoa gulation safty education Carotid ar petar stenosis 40850538 I65.29 last U/S 10/12/22 per pt Active or passive immunization 341081364 Z23 up to date Body mass index less than 20 050243849 Z68.1 [id number] Ashlee Doyle MD [employer] [facility], [facility] [address] [place] [address] 01/06/2024 12:05:09 01/06/2024 14:11:13 Mild memory disturbance 422599152 R41.3 mild , Age relate d macular degeneration 642588270 H35.30 sees ophth every 6 monthsneed help with ADLsform 4 pages done today Idiopathic peripheral neuropathy 92271803 G60.9 per neurology notedeclin e medslast B12 06/21/23 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.B0 less than 2 times a monthhavin g MRI of brain 12/15/21 Paroxysmal atrial fibrillation 849708047 I48.0 cardiology had holter ,anita score 4-5anticoa gulation safty education [id number] Ashlee Doyle MD [employer], [facility] [address] [place] [address] 03/06/2024 14:59:36 03/06/2024 16:02:00 Anemia 909711427 D64.9 Benign hypertension 1072 5009 I10 good controlBP 2 weeksseen ophth 08/2023 per ptlast EKG 01/04/23 Cough 28334198 R05.9 Carotid ar petar stenosis 70245888 I65.29 last U/S 10/12/22 per pt Hyperlipidemia 73941393 E78.5 last LDL 05/13/23car diology changed to rosuva 5 Fall on same level 96870 003 W18.30XA one time , 2 months agoeducati on Screening mammography 24 725913 Z12.31 per pt had mammogram 12/30/23 Screening for malignant neoplasm of cervix 696336855 Z12.4 per pt had PAP 06/2023 Screening for malignant neoplasm of colon 429308350 Z12.11 last C scope 11/06/13 , good for 10 years Active or passive immunization 452728099 Z23 up to date Benign par oxysmal positional vertigo 906304641 H81.10 [id number] Ashlee Doyle MD [employer], [facility] [address] [place] [address] 04/18/2024 11:36:37 04/18/2024 12:38:39 Pneumonia 478528190 J18.9 LLL on CXR 04/05/24O2 is 93% Congestive heart failure 05336016 I50.9 last ECHO 10/2023 , EF 45%resolve d Paroxysmal atrial fibrillation 924401809 I48.0 cardiology had holter ,anita score 4-5anticoa gulation safty education Iron defic iency anemia 07675546 D50.9 Benign hypertension 1072 5009 I10 good controlBP 2 weeksseen ophth 08/2023 per ptlast EKG 01/04/23 Candidiasis of vagina 72 235071 B37.31 [id number] Ashlee Doyle MD [employer], [facility] [address] [place] [address] 06/18/2024 11:27:00 06/18/2024 12:45:24 Benign hypertension 34730288 I10 good controlBP 2 weeksseen ophth 08/2023 per ptlast EKG 06/27/23 Congestive heart failure 41671070 I50.9 last ECHO 10/2023 , EF 45%resolve d Dysphagia 14568208 R13.1 0 seen GI , having EGD Paroxysmal atrial fibrillation 748181503 I48.0 cardiology had holter ,anita score 4-5anticoa gulation safty education Stasis dermatitis 975320 05 I87.2 low ext Screening mammography 24 351056 Z12.31 per pt had mammogram 12/30/23 Screening for malignant neoplasm of cervix 344827642 Z12.4 per pt had PAP 06/2023 Screening for malignant neoplasm of colon 737140195 Z12.11 last C scope 11/06/13 , good for 10 years Active or passive immunization 684268406 Z23 up to date [id number] Ashlee Doyle MD [employer] [facility], [facility] [address] [place] [address] 10/08/2024 11:08:50 10/08/2024 12:22:58 Benign hypertension 25815335 I10 good controlBP 2 weeksseen ophth 08/2024 per ptlast EKG 06/27/23 Carotid ar petar stenosis 69480590 I65.29 last U/S 10/12/22 per pt Hypomagnesemia 897893756 E83.42 last level 06/21/23 Hyperlipidemia 56096617 E78.5 last LDL 05/13/23car diology changed to rosuva 5 Idiopathic peripheral neuropathy 96359974 G60.9 per neurology notedeclin e medslast B12 06/21/23 Iron defic iency anemia 50663579 D50.9 Long-term drug therapy 910054385 Z79.899 statin , last A1c 02/2024 ,amiodaron e , scheduled for PFT 11/2023 per pt Congestive heart failure 14883201 I50.9 last ECHO 10/2023 , EF 45%resolve d Screening mammography 24 166531 Z12.31 per pt had mammogram 12/30/23 Screening for malignant neoplasm of cervix 799217995 Z12.4 per pt had PAP 06/2023 Screening for malignant neoplasm of colon 230393633 Z12.11 last C scope 11/06/13 , no polyp Active or passive immunization 507790161 Z23 up to date Unintentio nal weight loss 829155630 R63.4 Paroxysmal atrial fibrillation 333369584 I48.0 cardiology had holter ,anita score 4-5anticoa gulation safty education Health Concerns Section Related Observation LastModified by Organization Detai ls LastModified Time None Recorded Concern Status LastModified by Organization Details LastModified Time None Recorded Advance Directives Directive None Recorded Payers Encounter Date Sequence Insurance Name Policy Number Policy Tai Covered Member ID Tai Member ID Guarantor Name 01/06/2024 2 [place] 104 Agustina Cordova [id number] Agustina Cordova 01/06/2024 1 [place] Agustina Cordova [id number] Agustina Cordova 03/06/2024 2 [place] 104 Agustina Cordova [id number] Agustina Cordova 03/06/2024 1 [place] Agustina Cordova [id number] Agustina Cordova 04/18/2024 2 [place] 104 Agustina Cordova [id number] Agustina Cordova 04/18/2024 1 [place] Agustina Cordova [id number] 1 [id number] Agustina Cordova 06/18/2024 2 [place] 104 Agustina Cordova [id number] Agustina Cordova 06/18/2024 1 [place] Agustina Cordova [id number] 1 [id number] Agustina Cordova 10/08/2024 2 [place] 104 Agustina Cordova [id number] Agustina Cordova 10/08/2024 1 [place] Agustina Cordova [id number] 1 [id number] Agustina Crodova Notes Date Note Type Note Provider Name [...] help with ADLs Ashlee Doyle MD [address] [facility] [address], [place], [address], [facility] 01/06/2024 13:47:54 03/06/2024 text/html Hypertension F/UReported [...] to start entresto Ashlee Doyle MD [address] [facility] [address], [place], [address], [facility] 03/06/2024 15:56:45 04/18/2024 text/html Hospitalization Contact [...] , Better now Ashlee Doyle MD [address], [place], [address], [facility] 04/18/2024 12:33:14 06/18/2024 text/html Hypertension F/UReported bypatient.Medications: taking medications as directed; no side effects from medication Lifestyle:regular exercise; limiting/avoiding salt; compliant with low salt diet Associated Symptoms:no dizziness; no lightheadedness; no chest pain; no shortness of breath; no palpitations; no edema; no calf pain with exertion; no headache Ashlee Doyle MD [address], [place], [address], [facility] 06/18/2024 12:41:56 10/08/2024 text/html Hypertension F/UReported bypatient.Medications: taking medications as directed; no side effects from medication Lifestyle:regular exercise; limiting/avoiding salt; compliant with low salt diet Associated Symptoms:no dizziness; no lightheadedness; no chest pain; no shortness of breath; no palpitations; no edema; no calf pain with exertion; no headache Ashlee Doyle MD [address], [place], [address], [facility] 10/08/2024 12:13:35 OBGyn Episode No OBEpisode recorded.
--- OUTSIDE RECORDS SUMMARY | 2025-02-16 12:10 | XMS_ITS | Encounter Summary ---
Author Organization [facility] Healthcare Address [address] [place] [address] Care Team Providers Care Pad Hand Name Role Phone Ashlee Doyle MD Primary Care Provider [phone] Randi Barney MD Unavailable Miscellaneous, Not In File Unavailable Unava ilable Sheryl Latham MD Unavailable [phone] Jonh Junior MD Primary Care Provide r Ashlee Doyle MD Primary Care Provider [phone] Jonh Junior MD Unavailable Encounter Details Date Type Department Care Team (Late st Contact Info) Description 03/31/2021 Telephone [facility] [address] [place] [address] Kindra Mir, RT Social History Tobacco Use Types Packs/Day Years Used Date Smoking Tobacco: Never Smokeless Tobacco: Never Alcohol Use Standard Drinks/Week Comments Yes 0 (1 standard drink = 0.6 oz pur e alcohol) Comments No Sex and Gender Information Value Date Recorded Sex Assigned at Not on file 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 Gender Identity Not on file Sexual Orientation [...] documented as of this encounter Care Teams Pad Hand Relationship Specialty Start Date End Date Ashlee Doyle MD [address] [place] [address] PCP - General 02/09/18 08/24/23 Jonh Junior MD PCP - General Cardiology 08/25/23 09/04/23 Ashlee Doyle MD [address] [place] [address] PCP - General Internal Medicine 09/05/23 Randi Barney MD [address] [place] [address] Referring Physician Cardiology 03/12/21 08/24/23 Miscellaneous, Not In File 03/24/21 Sheryl Latham MD Medical Oncologist/[employer] Medical Oncology 05/12/21 Jonh Junior MD Referring Physician Cardiology 09/05/23 documented as of this encounter
--- OUTSIDE RECORDS SUMMARY | 2025-02-16 12:10 | XMS_ITS | Encounter Summary ---
Author Organization [facility] Address [address] [place] [address] Care Team Providers Care Printing Press Operator Name Role Phone Olivia Foss MD Primary Care Provider Unavailable Encounter Details Date Type Department Care Team (Late st Contact Info) Description 02/19/2020 Lab Requisition [facility] DermPath Lab [address] [facility] [place] [address] Yumiko Dykes MD [address] [facility] [address] [place] [address] Social History Tobacco Use Types Packs/Day Years Used Date Smoking Tobacco: Never Assessed Comments Unknown Sex and Gender Information Value Date Recorded Sex Assigned at Not on file 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 Gender Identity Not on file Sexual Orientation Not on file documented as of this encounter Plan of Treatment Not on file documented as of this encounter Procedures Procedure Name Priority Date/Time Associated Diagnosis Comments DERMATOPATHOLOGY Routine 02/18/2020 12:0 0 AM CDT documented in this encounter Results * DERMATOPATHOLOGY (02/18/2020 12:00 AM CDT) Case Report Dermatopathology Report Case: [id number] Authorizing Provider: Yumiko Dykes MD Collected: 02/18/2020 12:00 AM Ordering Location: [facility] DermPath Lab Received: 02/19/2020 08:29 AM Pathologist: Annemarie Garza MD Specimen: Skin, left leg 0 2:31 PM CDT DERMATOPATHOLOGY LABORATORY Final Diagnosis Specimen A. SKIN, left leg: BASAL CELL CARCINOMA, INFILTRATIVE PATTERN (C44.719) PRESENT AT MARGIN 0 2:31 PM CDT DERMATOPATHOLOGY LABORATORY at 1431 CDT Clinical History R/O SCC. Check margins. 0 2:31 PM CDT DERMATOPATHOLOGY LABORATORY Gross Description Specimen A: Received is one formalin filled container labeled with the patient's name and designated left leg. The specimen consists of a shave biopsy measuring [id number], bisected. Jar 0+. 0 2:31 PM CDT [...] purposes. Billing Codes Specimen Charges Stain Charges 54680 1 0 2:31 PM CDT DERMATOPATHOLOGY LABORATORY Embedded Images 0 2:31 PM CDT DERMATOPATHOLOGY LABORATORY Pathology/Cytolog y TISSUE SPECIMEN FROM SKIN / Unknown 02/18/2020 02/19/2020 8:29 AM CDT us Yumiko Dykes MD LAB - PATHOLOGY/CYTOLOGY ORD ERABLES Final Result DERMATOPATHOLOGY LABORATORY [facility] - Department of Dermatology [facility]/[address] [address], [facility] [phone] documented in this encounter Visit Diagnoses Not on filedocumented in this encounter Care Teams Printing Press Operator Relationship Specialty Start Date End Date Olivia Foss MD PCP - General 02/05/19 documented as of this encounter
--- OUTSIDE RECORDS SUMMARY | 2025-02-16 12:10 | XMS_ITS | Encounter Summary ---
Author Organization [facility] Address [address] [place] [address] Care Team Providers Care Gold Miner Name Role Phone Olivia Foss MD Primary Care Provider Unavailable Encounter Details Date Type Department Care Team (Late st Contact Info) Description 02/07/2019 Lab Requisition [facility] Care DermPath Lab [address] [facility] [place] [address] Olivia Fernandez MD [address] [facility] [address] [place] [address] Social History Tobacco Use Types Packs/Day Years Used Date Smoking Tobacco: Never Assessed Comments Unknown Sex and Gender Information Value Date Recorded Sex Assigned at Not on file 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 Gender Identity Not on file Sexual Orientation Not on file documented as of this encounter Plan of Treatment Not on file documented as of this encounter Procedures Procedure Name Priority Date/Time Associated Diagnosis Comments DERMATOPATHOLOGY Routine 02/05/2019 12:0 0 AM CDT documented in this encounter Results * DERMATOPATHOLOGY (02/05/2019 12:00 AM CDT) Case Report Dermatopathology Report Case: [id number] Authorizing Provider: Olivia Fernandez MD Collected: 02/05/2019 12:00 AM Pathologist: Oanh Agrawal MD Received: 02/07/2019 08:16 AM Specimens: A) - Skin, right thigh B) - Skin, left FA 9 10:54 AM CDT DERMATOPATHOLOGY LABORATORY Final Diagnosis Specimen A. SKIN, right thigh: INTRADERMAL MELANOCYTIC NEVUS (D22.71) Specimen B. 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 B: R/O SCC, non-healing. 10:54 AM T DERMATOPATHOLOGY LABORATORY Gross Description Specimen A: Received is one formalin filled container labeled with the patient's name and designated right thigh. The specimen consists of a shave measuring 6f6y9mn. Jar 0. Specimen B: Received is one formalin filled container labeled with the patient's name and designated left FA. The specimen consists of a shave (2 pieces) measuring 32f2s4dj & 0c0y6hq. Jar 0. 10:54 AM T DERMATOPATHOLOGY LABORATORY Microscopic Description Specimen A. SKIN, right thigh: There are nests of cytologically bland melanocytes within the dermis that mature with depth. Specimen B. SKIN, left FA: The epidermis shows parakeratosis, full thickness disorderly maturation of keratinocytes, mitoses at different levels, and dyskeratotic cells. This lesion is present at the margin of the specimen. 10:54 AM T DERMATOPATHOLOGY LABORATORY Disclaimer An external and internal positive and negative controls are appropriate for the histochemical, immunohistochemical and immunofluorescence stain(s) in this case (if any), except where stated explicitly. The performance characteristics of the stain(s) cited in this report were developed and its performance characteristic determined by the Dermatopathology Laboratory at [facility], directed by Dr. Kwame Agrawal. These tests need not be, and therefore are not, approved by the [place] Food and Drug Administration. The tests are used for clinical purposes. Billing Codes Specimen Charges Stain Charges 22062 66412 1 1 9 10:54 AM T DERMATOPATHOLOGY LABORATORY Embedded Images 10:54 AM T DERMATOPATHOLOGY LABORATORY Pathology/Cytology TISSUE SPECIMEN FROM SKIN / Unknown 02/05/2019 02/07/2019 8:16 AM CDT Miscellaneous samples (specimen) TISSUE SPECIMEN FROM SKIN / Unknown 02/05/2019 02/07/2019 8:16 AM CDT Olivia Fernandez MD LAB - PATHOLOGY/CYTOLOGY OR DERABLES Final Result DERMATOPATHOLOGY LABORATORY [facility] - Department of Dermatology [address] [place] [address], [address] [place] [address], [facility] [phone] documented in this encounter Visit Diagnoses Not on filedocumented in this encounter Care Teams Gold Miner Relationship Specialty Start Date End Date Olivia Foss MD PCP - General 02/05/19 documented as of this encounter
[2025-02-16 12:46] VITALS: BP 137/53; PULSE 84; RESP 15; O2SAT 98
--- NOTE | 2025-02-16 12:47 | ED_ITS ---
HPI - General Adult General Chief complaint: Unspecified Stated complaint: Nausea, hurting all over, fever-on a Zpack Time Seen by Provider: 02/16/25 12:45 History of Present Illness HPI narrative: This is an 89-year-old female presenting ED with chief complaint of flu-like symptoms. Last 5 days she has had nausea, body aches and headache. She was prescribed a Z-Richie by her primary care physician after starting at she developed diarrhea. Patient denies chest pain difficulty breathing abdominal pain. Patient states she has dysuria without is chronic for her. Patient says she came to the ED because she feels like she is just not getting better. Related Data Home Medications ?Medication ?Instructions ?Recorded ?Confirmed ?Last Taken ?Type acetaminophen 500 mg tablet 1,000 mg PO TID PRN Pain (Scale 10/21/23 01/24/25 Unknown History Score 1-3) amiodarone 200 mg tablet 100 mg PO DAILY 10/21/23 01/24/25 Unknown History apixaban 2.5 mg tablet (Eliquis) 2.5 mg PO Q12H 10/21/23 01/24/25 Unknown Histor y fluticasone propionate 50 1 spray intranasal DAILY 10/21/23 01/24/25 Unknown History mcg/actuation nasal spray,suspension hydrocortisone 2.5 % topical cream 1 applic RECTAL DAILY PRN 10/21/23 01/24/25 Unknown History with perineal applicator Hemorrhoids melatonin 3 mg tablet 3 mg PO HS PRN Insomnia 10/21/23 01/24/25 Unknown History polysaccharide iron complex 150 mg 150 mg PO EVERY OTHER DAY 10/21/23 01/24/25 Unknown History iron capsule rosuvastatin 5 mg tablet 5 mg PO DAILY 10/21/23 01/24/25 Unknown History sucralfate 1 gram tablet 1 g PO TIDWM PRN stomach pain 10/21/23 01/24/25 Unknown History timolol 0.25 % eye drops 1 drp EACH EYE Q12H 10/21/23 01/24/25 Unknown History omeprazole 20 mg capsule,delayed 20 mg PO DAILY 04/02/24 01/24/25 Unknown Hi story release Allergies Allergy/AdvReac Type Severity Reaction Status Date / Time Sulfa (Sulfonamide Allergy Severe Swelling Verified 02/16/25 12:50 Antibiotics) of Lip/Tongue/Throat PMFSH Past Medical History Medical History Heart failure with mid-range ejection fraction Echocardiogram in October 2023 showed mildly reduced LV systolic function with an EF of 45 to 50% and grade 1 diastolic dysfunction. Transient ischemic attack Chronic anticoagulation Paroxysmal atrial fibrillation Left bundle branch block Hyperlipidemia Hypertension Lymphoma (2020) Surgical History Surgical History History of lymph node biopsy Family History Family History Sibling Cerebrovascular accident Social History Social History Social History: Surrogate medical decision maker: Annemarie Ortiz, granddaughter. Code status: Full code. Smoking status: Never smoker Alcohol intake: never Substance use: never Substance use type: does not use Current Housing: Decline to Answer Concerned About Future Housing: Decline to Answer Difficulty Paying Gas/Electric Bills: Decline to Answer Difficulty Paying for Meds: Decline to Answer Currently Unemployed: Decline to Answer Education: Decline to Answer Difficulty w/ Childcare or Family Care: Decline to Answer Spiritual care concerns: No Exam Narrative: APPEARANCE: No apparent distress. Head: atraumatic. EYES: EOMI, NOSE: Atraumatic NECK: Trachea midline RESPIRATORY: No increased rate of breathing clear to auscultation CARDIOVASCULAR: RRR, no peripheral edema ABDOMINAL: Non-distended soft nontender no rebound no CVA tenderness MUSCULOSKELETAl: No obvious deformities NEURO: Alert. Moving 4/4 extremities SKIN:: Warm, dry. Normal color PSYCHIATRIC: Normal affect Course Vital Signs Vital signs: Vital Signs Temperature 98.1 F 02/16/25 12:10 Pulse Rate 104 H 02/16/25 12:10 Respiratory Rate 02/16/25 12:10 Blood Pressure 107/60 02/16/25 12:10 Pulse Oximetry 98 02/16/25 12:10 Oxygen Delivery Room Air 02/16/25 12:10 Temperature 98.1 F 02/16/25 12:10 Pulse Rate 104 H 02/16/25 12:10 Respiratory Rate 02/16/25 12:10 Blood Pressure 107/60 02/16/25 12:10 Pulse Oximetry 98 02/16/25 12:10 Oxygen Delivery Room Air 02/16/25 12:10 Medical Decision Making [facility] Narrative Medical decision making narrative: -Course: 89-year-old female presenting with 5 days of flu-like symptoms. Vital signs are stable. Physical exam is unremarkable. Laboratory studies within normal limits. Urinalysis with 6-10 white blood cells and +2 leuk esterase. Patient notes occasional dysuria so she will be treated with a short course of Keflex. Viral swabs were negative. Chest x-ray without pneumonia. Patient received fluids and was feeling better. She was able ambulate around the ED with steady gait. Discussed admission versus discharge and patient is comfortable going home and returning for condition is to worsen. Patient was told to have a low threshold to come back to the ED if she is not feeling better. -DDX includes but is not limited to: Viral syndrome, COVID, flu, UTI, dehydration, gastroenteritis, antibiotic induced diarrhea Vital Signs Vital Signs: Vital Signs Temperature 98.1 F 02/16/25 12:10 Pulse Rate 104 H 02/16/25 12:10 Respiratory Rate 20 02/16/25 12:10 Blood Pressure 107/60 02/16/25 12:10 Pulse Oximetry 98 02/16/25 12:10 Oxygen Delivery Room Air 02/16/25 12:10 Temperature 98.1 F 02/16/25 12:10 Pulse Rate 104 H 02/16/25 12:10 Respiratory Rate 20 02/16/25 12:10 Blood Pressure 107/60 02/16/25 12:10 Pulse Oximetry 98 02/16/25 12:10 Oxygen Delivery Room Air 02/16/25 12:10 Discharge Plan Discharge Clinical Impression: Acute viral syndrome, Acute UTI Patient Disposition: Still a Patient Condition: Stable Additional Instructions: You were seen in the emergency department for not feeling well. I believe her symptoms are due to a virus. This should improve with time as long as you are eating and drinking as normally. You can use Tylenol for body aches and headache. Your urine had 6-10 white blood cells which may be a sign of UTI. You can not complete a short course of Keflex to see if that improves your symptoms. Follow-up with your primary care physician in 2-3 days please if you feel your getting worse please have a low threshold to return to the emergency department for evaluation Patient Language: Wolof Prescriptions: New cephalexin 500 mg capsule 500 mg PO Q12H Qty: 10 0RF No Action amiodarone 200 mg tablet 100 mg PO DAILY sucralfate 1 gram tablet 1 g PO TIDWM PRN (Reason: stomach pain) polysaccharide iron complex 150 mg iron capsule 150 mg PO EVERY OTHER DAY melatonin 3 mg Tablet 3 mg PO HS PRN (Reason: Insomnia) acetaminophen 500 mg Tablet 1,000 mg PO TID PRN (Reason: Pain (Scale Score 1-3)) hydrocortisone 2.5 % Cream With Perineal Applicator 1 applic RECTAL DAILY PRN (Reason: Hemorrhoids) timolol 0.25 % Drops 1 drp EACH EYE Q12H fluticasone propionate 50 mcg/actuation [place],Suspension 1 spray INTRANASAL DAILY Rx Instructions: administer into each nostril rosuvastatin 5 mg tablet 5 mg PO DAILY Eliquis 2.5 mg tablet 2.5 mg PO Q12H spironolactone 25 mg Tablet 25 mg PO QAM Qty: 30 0RF omeprazole 20 mg capsule,delayed release(DR/EC) 20 mg PO DAILY guaifenesin [Mucus Relief ER] 600 mg Tablet Extended Release 12hr 600 mg PO Q12HR Qty: 60 0RF albuterol sulfate 90 mcg/actuation HFA aerosol inhaler 1 inh inhalation QID PRN (Reason: shortness of breath or wheezing) Qty: 8.5 0RF prednisone 20 mg tablet 40 mg PO DAILY Qty: 8 0RF oxycodone 5 mg tablet 5 mg PO Q8H PRN (Reason: pain) Qty: 10 0RF (DME) walker Misc See Rx Instructions .Route Qty: 1 0RF Rx Instructions: As directed Follow-up/Referrals: Yanira,MD Ashlee [Primary Care Provider] -
--- NOTE | 2025-02-16 12:49 | ECG_ITS ---
Test Date: 2025-02-16 13:12:59 Measurements Intervals [place] Rate: 80 P: 54 MN: 181 QRS: -55 QRSD: 157 T: 87 QT: 419 QTc: 483 Interpretive Statements SINUS RHYTHM LEFT AXIS DEVIATION LEFT BUNDLE BRANCH BLOCK BASELINE ARTIFACT- I, II, III, AVR, AVL ,AVF ABNORMAL ECG Compared to ECG 04/02/2024 14:18:17 No significant changes Electronically Signed On 02-17-2025 06:49:39 CDT by Chung Estrada D.O.
--- OUTSIDE RECORDS SUMMARY | 2025-02-16 13:00 | XMS_ITS | CONTINUITY OF CARE DOCUMENT ---
Author Name taylor vazquez Address Unknown Organization [facility] Address [id number] [place] [address] [address] [place] [address] Phone [phone] Care Team Providers Care Physical Sciences Instructor Name Role Phone Gilmar CRUZ, Juliana Unavailable [phone] Juliana Schafer MD Unavailable [phone] INSURANCE PROVIDERS Payer name Policy type / Coverage type Darden red constitution party ID [facility] [id number] [place] [employer] Medicare [id number]
--- OUTSIDE RECORDS SUMMARY | 2025-02-16 13:00 | XMS_ITS | Encounter Summary ---
Author Organization [facility] Address [address] [place] [address] Care Team Providers Care Emergency Technician Name Role Phone Olivia Foss MD Primary Care Provider Unavailable Encounter Details Date Type Department Care Team (Late st Contact Info) Description 04/09/2019 Lab Requisition [facility] Care DermPath Lab [address] [place] [address] Olivia Fernandez MD [address] 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 Previous Bx: [id number]. 3:47 PM CDT DERMATOPATHOLOGY LABORATORY Gross Description Specimen A: Received is one formalin filled container labeled with the patient's name and designated left fa. The specimen consists of a non-oriented ellipse of skin measuring [id number]. The epidermal surface is unremarkable. The margin [...] characteristic determined by the Dermatopathology Laboratory at [facility], directed by Dr. Kwame Agrawal. These tests need not be, and therefore are not, approved by the [place] Food and Drug Administration. The tests are used for clinical purposes. Billing Codes Specimen Charges Stain Charges 93485 1 3:47 PM CDT DERMATOPATHOLOGY LABORATORY Embedded Images 3:47 PM CDT DERMATOPATHOLOGY LABORATORY Pathology/Cytolog y TISSUE SPECIMEN FROM SKIN / Unknown 04/06/2019 04/09/2019 6:40 AM CDT Olivia Fernandez MD LAB - PATHOLOGY/CYTOLOGY OR DERABLES Final Result DERMATOPATHOLOGY LABORATORY [facility] - Department of Dermatology [address], [address]th [place] [address], [facility] [phone] documented in this encounter Visit Diagnoses Not on filedocumented in this encounter Care Teams Emergency Technician Relationship Specialty Start Date End Date Olivia Foss MD PCP - General 02/05/19 documented as of this encounter
--- OUTSIDE RECORDS SUMMARY | 2025-02-16 13:00 | XMS_ITS | Encounter Summary ---
Author Organization [facility] Address [address] [place] [address] Care Team Providers Care Change Of Address Clerk Name Role Phone Olivia Foss MD Primary Care Provider Unavailable Encounter Details Date Type Department Care Team (Late st Contact Info) Description 02/07/2019 Lab Requisition [facility] Care DermPath Lab [address] [facility] [place] [address] Olivia Fernandez MD [address] [facility] 3 [place] [address] Social History Tobacco Use Types Packs/Day Years Used Date Smoking Tobacco: Never Assessed Comments Unknown Sex and Gender Information Value Date Recorded Sex Assigned at Not on file 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 Jar 0. Specimen B: Received is one formalin filled container labeled with the patient's name and designated left FA. The specimen consists of a shave (2 pieces) measuring [id number] & [id number]. Jar 0. 10:54 AM T DERMATOPATHOLOGY LABORATORY [...] by the Dermatopathology Laboratory at [facility], directed by Dr. Kwame Agrawal. These tests need not be, and therefore are not, approved by the [place] Food and Drug Administration. The tests are used for clinical purposes. Billing Codes Specimen Charges Stain Charges 73432 88637 1 1 9 10:54 AM T DERMATOPATHOLOGY LABORATORY Embedded Images 10:54 AM T DERMATOPATHOLOGY LABORATORY Pathology/Cytology TISSUE SPECIMEN FROM SKIN / Unknown 02/05/2019 02/07/2019 8:16 AM CDT Miscellaneous samples (specimen) TISSUE SPECIMEN FROM SKIN / Unknown 02/05/2019 02/07/2019 8:16 AM CDT Olivia Fernandez MD LAB - PATHOLOGY/CYTOLOGY OR DERABLES Final Result DERMATOPATHOLOGY LABORATORY [facility] - Department of Dermatology [address] [place] [address], 5th [place] [address], [facility] [phone] documented in this encounter Visit Diagnoses Not on filedocumented in this encounter Care Teams Change Of Address Clerk Relationship Specialty Start Date End Date Olivia Foss MD PCP - General 02/05/19 documented as of this encounter
--- OUTSIDE RECORDS SUMMARY | 2025-02-16 13:00 | XMS_ITS | Clinical Summary ---
Author Organization [facility] Address [address] [place] [address] Care Team Providers Care Desk Interviewer Name Role Phone Olivia Foss MD Primary Care Provider Unavailable Source Comments [facility],non-owned Affiliates and Associated Physician Practices is amultiple site organization consisting of ambulatory clinics and hospital sitesin [place], [place], [place] and [place]. This disclosure is being madepursuant to the Care Everywhere program and may not contain all information available regarding this patient. 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
--- OUTSIDE RECORDS SUMMARY | 2025-02-16 13:00 | XMS_ITS | Encounter Summary ---
Author Organization [facility] Address [address] [place] [address] Care Team Providers Care Licensing Coordinator Name Role Phone Olivia Foss MD Primary Care Provider Unavailable Encounter Details Date Type Department Care Team (Late st Contact Info) Description 02/19/2020 Lab Requisition 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 DermPath Lab Received: 02/19/2020 08:29 AM Pathologist: [...] specimen consists of a shave biopsy measuring [id number], bisected. Jar 0+. 0 2:31 PM CDT [...] by the Dermatopathology Laboratory at [facility], directed by Dr. Kwame Agrawal. These tests need not be, and therefore are not, approved by the [place] Food and Drug Administration. The tests are used for clinical purposes. Billing Codes Specimen Charges Stain Charges 18882 1 0 2:31 PM CDT DERMATOPATHOLOGY LABORATORY Embedded Images 0 2:31 PM CDT DERMATOPATHOLOGY LABORATORY Pathology/Cytolog y TISSUE SPECIMEN FROM SKIN / Unknown 02/18/2020 02/19/2020 8:29 AM CDT us Yumiko Dykes MD LAB - PATHOLOGY/CYTOLOGY ORD ERABLES Final Result DERMATOPATHOLOGY LABORATORY [facility] - Department of Dermatology [facility] [address], [facility] [phone] documented in this encounter Visit Diagnoses Not on filedocumented in this encounter Care Teams Licensing Coordinator Relationship Specialty Start Date End Date Olivia Foss MD PCP - General 02/05/19 documented as of this encounter
[2025-02-16 13:18] LABS: Fractional Inspired Oxygen 21 %; HCO3 VBG 21.8 mEq/l (24.0-30.0); PCO2 VBG 30.9 mmHg (42.0-48.0); PO2 VBG 53.7 mmHg (35.0-45.0)
[2025-02-16 13:19] LABS: pH VBG 7.466 (7.300-7.400)
[2025-02-16 13:20] LABS: Device ROOM AIR
[2025-02-16 13:21] LABS: Basophils Percent Auto 0.3 % (0.2-1.2); Eosinophils Absolute Auto 0.1 K/mm3 (0-0.3); Eosinophils Percent Auto 0.8 % (0-4.4); Hematocrit 29.7 % (37.0-47.0); Hemoglobin 9.4 g/dL (12.0-15.0); Immature Granulocyte Absolute 0.09 K/mm3 (0.00-0.031); Immature Granulocyte Percent A 1.4 % (0-0.5); Lymphocytes Absolute Auto 0.61 K/mm3 (0.9-3.2); Lymphocytes Percent Auto 9.8 % (18.3-44.2); Mean Corpuscular HGB Conc 31.6 g/dl (32-36); Mean Corpuscular Volume 88.4 fl (80-100); Mean Platelet Volume 8.5 fl (7.4-10.4); Monocytes Absolute Auto 0.5 K/mm3 (0.1-0.6); Monocytes Percent Auto 7.9 % (2.6-8.5); Neutrophils Percent Auto 79.8 % (45.5-73.1); Platelet Count Result 112 k/mm3 (150-375); Red Blood Count 3.36 M/mm3 (4.2-5.4); Red Cell Distribution Width 16.9 % (11.5-14.5); White Blood Count 6.2 K/mm3 (4.5-10.0)
[2025-02-16 13:27] VITALS: BP 150/50; PULSE 82; RESP 18; O2SAT 100
[2025-02-16] MEDS: SODIUM CHLORIDE 0.9% IV 1,000 ML 999 ML IV CONT ×2 (13:27→16:20)
[2025-02-16] MEDS: ONDANSETRON INJ 4 MG/2 ML VIAL IV PUSH (13:27)
[2025-02-16 13:29] LABS: INR 1.3; Prothrombin Time 16.1 Seconds (11.1-14.7)
[2025-02-16 13:31] LABS: Partial Thromboplastin Time 33.1 Seconds (22.3-36.8)
[2025-02-16 13:41] LABS: Alanine Aminotransferase 23 U/L (6-35); Albumin Level 3.1 g/dL (3.5-5.1); Alkaline Phosphatase 148 U/L (38-126); Anion Gap 6 mmol/L (4-12); Aspartate Amino Transferase 34 U/L (14-36); Bilirubin,Total 0.5 mg/dL (0.2-1.3); Blood Urea Nitrogen 19 mg/dL (7-17); Calcium 8.9 mg/dL (8.4-10.2); Carbon Dioxide 23 mmol/L (22-30); Chloride 99 mmol/L (98-107); Estimated CRCL calculation 24 ml/min; Estimated Glomerular Filt Rate 41; Glucose 109 mg/dL (65-110); Lipase 54 U/L (23-300); Magnesium 1.8 mg/dL (1.6-2.3); Phosphorus 2.9 mg/dL (2.5-4.5); Potassium 4.3 mmol/L (3.4-5.0); Sodium 128 mmol/L (137-145)
[2025-02-16 13:53] LABS: NT Pro B Type Natriuretic Pept 1860 pg/mL (19.9-100); Troponin I 0.029 ng/mL (0.000-0.034)
[2025-02-16 13:55] LABS: Influenza A QL RT-PCR Negative (Negative); Influenza B QL RT-PCR Negative (Negative); RSV RNA, RT-PCR Negative (Negative); SARS-CoV-2 RNA PCR Negative (Negative)
[2025-02-16 14:02] LABS: Add Urine Microscopic? YES; Appearance Urine Clear (Clear); Bacteria Urine None Seen /hpf; Bilirubin Urine Negative (Negative); Blood Urine Negative (Negative); Color Urine Yellow (Yellow); Glucose Urine UA Negative (Negative); Ketones Urine Negative (Negative); Leukocyte Esterase Ur 2+ LEU/UL (Negative); Need Manual Microscopic Reviewed; Nitrate Urine Negative (Negative); Protein Urine Trace mg/dL (Negative); RBC Urine 0-2 /hpf (0-2); Specific Grav Ur 1.016 (1.001-1.035); Squamous Epithelial Cell Urine Occasional /hpf (Few)
[2025-02-16 14:11] LABS: Thyroid Stimulating Hormone Reflex 0.486 uIU/mL (0.465-4.68)
[2025-02-16 14:39] VITALS: BP 127/57; PULSE 86; RESP 20; O2SAT 95
--- NOTE | 2025-02-16 15:35 | ECG_ITS ---
Test Date: 2025-02-16 15:44:18 Measurements Intervals [place] Rate: 85 P: 73 [place]: 152 QRS: -58 QRSD: 167 T: 90 QT: 442 QTc: 528 Interpretive Statements SINUS RHYTHM LEFT AXIS DEVIATION LEFT BUNDLE BRANCH BLOCK ABNORMAL ECG Compared to ECG 02/16/2025 13:12:59 No significant changes Electronically Signed On 02-17-2025 06:51:53 CDT by Chung Estrada D.O.
[2025-02-16 15:45] VITALS: BP 125/53; PULSE 91; RESP 17; TEMP 36.4; O2SAT 96
[2025-02-16] MEDS: ACETAMINOPHEN 500 MG TABLET 1000 MG PO (16:21)
[2025-02-16 16:41] LABS: Troponin I 0.029 ng/mL (0.000-0.034)
[2025-02-16] MEDS: CEPHALEXIN 500 MG CAPSULE PO (18:29)
[2025-02-16 18:39] VITALS: BP 133/55; PULSE 89; RESP 19; O2SAT 96
== END 2025-02-16 19:00 | disposition home or self-care (01) ==
PROVIDERS: Emergency Provider Emergency Medicine; PCP Internal Medicine
DX: B34.9 Viral infection, unspecified (principal); N39.0 Urinary tract infection, site not specified; I11.0 Hypertensive heart disease with heart failure; I50.9 Heart failure, unspecified; I48.0 Paroxysmal atrial fibrillation; E78.5 Hyperlipidemia, unspecified; Z86.73 Personal history of transient ischemic attack (TIA), and cerebral infarction without residual deficits; Z85.72 Personal history of non-Hodgkin lymphomas; Z79.01 Long term (current) use of anticoagulants; Z20.822 Contact with and (suspected) exposure to COVID-19
CPT/HCPCS: 36415; 71045; 80053; 81001; 82803; 83605; 83690; 83735; 83880; 84100; 84443; 84484; 85025; 85055; 85610; 85730; 87086; 87637; 93005; 96361; 96374; 99284; A9270; J2405; J7030

== ENCOUNTER 2025-08-12 12:47 | Inpatient (IN) | payer MEDICARE, BC, SELFPAY ==
[2025-08-12] VITALS (12 sets, daily range): BP systolic 110–173; BP diastolic 45–62; PULSE 73–82; RESP 14–21; TEMP 36.4–36.7; O2SAT 95–100
--- NOTE | ~2025-08-12 | XR_ITS ---
Examination: XR chest 2V Clinical History: cough Comparison: 02/16/2025 Technique: PA and Lateral Findings: Cardiomediastinal silhouette normal size and configuration. Small pleural effusions. Hyperinflation. No acute bony abnormality. Osteopenia. IMPRESSION: 1. Small pleural effusions. Reviewed, dictated and finalized at location R. UP MACHINE OPERATOR IMPRESSION: 1. Small pleural effusions.
--- NOTE | 2025-08-12 14:30 | ED_ITS ---
HPI - URI/Sore Throat General Chief Complaint: Upper Respiratory Infection <Vida Chan PA-C - Last Filed: 08/13/25 09:14> Stated Complaint: concerned for pneumonia, wheezes, coughing <Vida Chan PA-C - Last Filed: 08/13/25 09:14> Time Seen by Provider: 08/12/25 14:30 <COCO Alfaro Last Filed: 08/13/25 09:14> Focused HPI: This is a 89 year old female that presents to the ER for cough, fatigue, wheezing. Ongoing over the last week. She was concerned for pneumonia which prompted her to be seen. Denies fevers. GENERAL: Well-appearing, well-nourished, and in no acute distress. HEAD: Normocephalic, atraumatic. CHEST: Clear to auscultation. ?No respiratory distress. HEART: Regular rate and rhythm.? NEURO: ?Alert and oriented x3. Patient screened in triage and initial orders placed.? ?Additional care and disposition to be based upon?diagnostic testing and treatment. <Vida Chan PA-C - Last Filed: 08/13/25 09:14> Focused HPI: This is a 89 year old female that presents to the ER for cough, fatigue, wheezing. Ongoing over the last week. She was concerned for pneumonia which prompted her to be seen. Denies fevers. GENERAL: Well-appearing, well-nourished, and in no acute distress. HEAD: Normocephalic, atraumatic. CHEST: Clear to auscultation. ?No respiratory distress. HEART: Regular rate and rhythm.? NEURO: ?Alert and oriented x3. Patient screened in triage and initial orders placed.? ?Additional care and disposition to be based upon?diagnostic testing and treatment. <COCO Walker Last Filed: 08/12/25 23:34> Source: patient <COCO Walker Last Filed: 08/12/25 23:34> Mode of arrival: ambulatory <COCO Walker Last Filed: 08/12/25 23:34> Limitations: no limitations <Alicia Murguia PA-C - Last Filed: 08/12/25 23:34> History of Present Illness HPI Narrative: Agree with above HPI. Reports she had history of pneumonia 2 years and it began similarly. Reported having some rattling/wheezing, pain in her chest last night. Has been feeling somewhat short of breath over the past few days. History of CHF, AFib. On amiodarone, Eliquis 2.5 mg b.i.d. <Alicia Murguia PA-C - Last Filed: 08/12/25 23:34> Related Data Home Medications: Home Medications ?Medication ?Instructions ?Recorded ?Confirmed ?Last Taken ?Type acetaminophen 500 mg tablet 1,000 mg PO TID PRN Pain ( Scale 10/21/23 08/12/25 Unknown History Score 1-3) amiodarone 200 mg tablet 100 mg PO DAILY 10/21/2308/12/25 History hydrocortisone 2.5 % topical cream 1 applic RECTAL WAN LY PRN 10/21/23 08/12/25 Unknown History with perineal applicator Hemorrhoids melatonin 3 mg tablet 3 mg PO HS PRN Insomnia 11/1208/12/25 Unknown History timolol 0.25 % eye drops 1 drp EACH EYE Q12H 10/21/23 08/12/25 08/12/25 History apixaban 2.5 mg tablet (Eliquis) 2.5 mg PO Q12H 08/12/25 08/12/25 History pantoprazole 40 mg tablet,delayed 40 mg PO DAILY 08/1208/12/25 08/12/25 History release polysaccharide iron complex 150 mg 150 mg PO DAILY 08/12/25 Unknown History iron capsule rosuvastatin 5 mg tablet 5 mg PO .QOD 08/12/25 Unknown History sacubitril 24 mg-valsartan 26 mg 1 tablet PO BID 08/1208/12/25 08/12/25 History tablet <Vida Chan PA-C - Last Filed: 08/13/25 09:14> Allergies/Adverse Reactions: Allergies Allergy/AdvReac Type Severity Reaction Status Date / Time Sulfa (Sulfonamide Allergy Severe Swelling Verified 08/13/25 07:38 Antibiotics) of Lip/Tongue/Throat <Vida Chan PA-C - Last Filed: 08/13/25 09:14> Review of Systems 2 Review of Systems: All systems reviewed & are unremarkable except as noted in HPI. <Alicia Murguia PA-C - Last Filed: 08/12/25 23:34> All systems reviewed & are unremarkable except as noted in HPI and below < Alicia Murguia PA-C - Last Filed: 08/12/25 23:34> [facility] [place] Past Medical History Medical History: Medical History History of hip fracture right hip Heart failure with mid-range ejection fraction Echocardiogram in October 2023 showed mildly reduced LV systolic function with an EF of 45 to 50% and grade 1 diastolic dysfunction. Transient ischemic attack Chronic anticoagulation Paroxysmal atrial fibrillation Left bundle branch block Hyperlipidemia Hypertension Lymphoma (2020) <Vida Chan PA-C - Last Filed: 08/13/25 09:14> Surgical History Surgical History: Surgical History History of lymph node biopsy <Vida Chan PA-C - Last Filed: 08/13/25 09:14> Family History Family History: Family History Sibling Cerebrovascular accident Mother Cardiac abnormality <COCO Alfaro Last Filed: 08/13/25 09:14> Social History Social History: Social History Social History: Surrogate medical decision maker: Annemarie Ortiz, granddaughter. Code status: Full code. Smoking status: Never smoker Alcohol intake: never Substance use: never Substance use type: does not use Lack of Transportation: No Lack of Food: Never True Current Housing: I Have Housing Concerned About Future Housing: No Difficulty Paying Gas/Electric Bills: No Difficulty Paying for Meds: No Currently Unemployed: No Education: Bachelor's Degree Difficulty w/ Childcare or Family Care: No Spiritual care concerns: No <COCO Alfaro Last Filed: 08/13/25 09:14> Exam 2 Narrative: GENERAL: Elderly, frail/thin, non-toxic, in no acute distress. HEAD: Normocephalic, atraumatic. RESPIRATORY: Airway patent, respirations nonlabored. Slight decreased lung sounds in bases bilaterally. Otherwise no significant focal lung sounds. Speaking in full sentences CARDIOVASCULAR: Regular rate and rhythm without murmurs, rubs, or gallops. ABDOMINAL: Soft, nontender, nondistended. Normoactive BS. MUSCULOSKELETAL: Moves all extremities. No gross deformities. Trace peripheral edema slava, no calf tenderness SKIN: Warm, dry, normal color. NEURO: A&O X3. Speech clear. Cranial nerves II-XII grossly intact. Steady gait. No ataxic movements. PSYCHIATRIC: Appropriate mood and affect. Normal interaction. <Alicia Murguia PA-C - Last Filed: 08/12/25 23:34> Course PRINCIPLE SOFTWARE ENGINEER/PA Physician Supervision This visit was performed by both a physician and an Advanced Practice Provider. I performed all aspects of the Medical Decision Making as documented. <Ronald Dias MD - Last Filed: 08/13/25 01:07> Vital Signs Vital signs: Vital Signs Temperature 97.6 F 08/12/25 13:24 Pulse Rate 77 08/12/25 13:24 Respiratory Rate 15 08/12/25 13:24 Blood Pressure 110/60 08/12/25 13:24 Pulse Oximetry 100 08/12/25 13:24 Oxygen Delivery Room Air 08/12/25 13:24 Temperature 97.5 F L 08/13/25 06:00 Pulse Rate 68 08/13/25 08:26 Respiratory Rate 16 08/13/25 06:00 Blood Pressure 175/63 H 08/13/25 06:00 Pulse Oximetry 92 08/13/25 08:28 Oxygen Delivery Room Air 08/13/25 08:28 <Vida Chan PA-C - Last Filed: 08/13/25 09:14> Vital Signs Temperature 97.6 F 08/12/25 13:24 Pulse Rate 77 08/12/25 13:24 Respiratory Rate 15 08/12/25 13:24 Blood Pressure 110/60 08/12/25 13:24 Pulse Oximetry 100 08/12/25 13:24 Oxygen Delivery Room Air 08/12/25 13:24 Temperature 97.5 F L 08/13/25 06:00 Pulse Rate 68 08/13/25 08:26 Respiratory Rate 16 08/13/25 06:00 Blood Pressure 175/63 H 08/13/25 06:00 Pulse Oximetry 92 08/13/25 08:28 Oxygen Delivery Room Air 08/13/25 08:28 <Alicia Murguia PA-C - Last Filed: 08/12/25 23:34> Vital Signs Temperature 97.6 F 08/12/25 13:24 Pulse Rate 77 08/12/25 13:24 Respiratory Rate 15 08/12/25 13:24 Blood Pressure 110/60 08/12/25 13:24 Pulse Oximetry 100 08/12/25 13:24 Oxygen Delivery Room Air 08/12/25 13:24 Temperature 97.5 F L 08/13/25 06:00 Pulse Rate 68 08/13/25 08:26 Respiratory Rate 16 08/13/25 06:00 Blood Pressure 175/63 H 08/13/25 06:00 Pulse Oximetry 92 08/13/25 08:28 Oxygen Delivery Room Air 08/13/25 08:28 <Ronald Dias MD - Last Filed: 08/13/25 01:07> MDM - URI/Sore Throat MDM Narrative Medical decision making narrative: Patient presented to ED with 1 week history of cough, mild SOB, concerned for pneumonia. Vital signs are stable upon arrival. Patient in no acute distress. Oxygen stable on room air. Laboratory studies without leukocytosis. Does show new anemia. Hemoglobin today 7.8. Per records, baseline around 9-10. Normocytic. Patient reports hx of KHLOE and is on iron supplementation. Does state stools have been intermittently dark. Denies BRBPR. On Eliquis for hx of AFIB. Guiaic exam in the ED negative. Anemia labs added on. Normal platelets. CMP with sodium 129. This appears fairly chronic per previous records. Kidney function is stable. Otherwise stable electrolytes. Viral swabs are negative. Chest x-ray with small bilateral pleural effusions. No pneumonia or focal consolidation. BNP elevated just over 2000. Patient does have history of CHF. Is on Entresto. States she is no longer on diuretics as she was having issues with her blood pressure dropping with this. EKG with chronic left bundle, appears similar to previous. Troponin WNL. D-dimer within normal range. Patient not currently on diuretics. Would benefit from diuresis, but will need cautious diuresis given labile blood pressures and hyponatremia. Will discuss with hospitalist. Discussed case with Dr. Guerrero, hospitalist, accepted patient for admission. Recommended to give lasix 20mg, venofer infusion 500mg. Patient is in agreement with plan and need for admission. <Alicia Murguia PA-C - Last Filed: 08/12/25 23:34> Medical Records Attestation: I reviewed the patient's medical records. <Alicia Murguia PA-C - Last Filed: 08/12/25 23:34> Lab Data Attestation: I reviewed the patient's lab results. <Alicia Murguia PA-C - Last Filed: 08/12/25 23:34> Result diagrams: 08/12/25 16:06 08/12/25 16:06 <Vida Chan PA-C - Last Filed: 08/13/25 09:14> Labs: Lab Results 08/12/25 08/12/25 08/12/25 Range/Units 16:06 18:11 20:59 WBC 6.7 (4.5-10.0) K/mm3 RBC 3.23 L (4.2-5.4) M/mm3 Hgb 7.8 L (12.0-15.0) g/dL Hct 26.2 L (37.0-47.0) % MCV 81.1 (80-100) fl MCH 24.1 L (26-34) pg MCHC 29.8 L (32-36) g/dl RDW 16.0 H (11.5-14.5) % Plt Count 180 D (150-375) k/mm3 MPV 9.8 (7.4-10.4) fl Immature Gran % (Auto) 0.1 (0-0.5) % Neut % (Auto) 45.5 (45.5-73.1) % Lymph % (Auto) 39.3 (18.3-44.2) % [place] % (Auto) 12.6 H (2.6-8.5) % Eos % (Auto) 1.6 (0-4.4) % Baso % (Auto) 0.9 (0.2-1.2) % Lymph # (Auto) 2.65 (0.9-3.2) K/mm3 [place] # (Auto) 0.9 H (0.1-0.6) K/mm3 Eos # (Auto) 0.1 (0-0.3) K/mm3 Baso # (Auto) 0.1 (0.0-0.1) K/mm3 Abs Immat Gran (auto) 0.01 (0.00-0.031) K/mm3 Absolute Neuts (auto) 3.1 (1.3-6.7) K/mm3 Absolute Nucleated RBC 0.000 (0.0-0.012) K/mm3 Band Neutrophils % 0 (0-6) % Nucleated RBC % 0.0 (0.0-0.2) % Platelet Estimate Adequate (Adequate) Hypochromasia 1+ Anisocytosis 2+ Schistocytes None seen Absolute Retic 0.06 (0.02-0.10) 10^6/uL Percent Retic 1.92 (0.7-4.3) % Immature Retic Fraction 26.4 H (3.0-15.9) % Retic Hgb Content 24.8 L (28.2-36.6) pg PT 15.4 H (11.1-14.7) Seconds INR 1.2 APTT 26.1 (22.3-36.8) Seconds D-Dimer 0.44 (<0.48) ug/mL Sodium 129 L (137-145) mmol/L Potassium 4.5 (3.4-5.0) mmol/L Chloride 99 (98-107) mmol/L Carbon Dioxide 23 (22-30) mmol/L Anion Gap 7 (4-12) mmol/L BUN 17 (7-17) mg/dL Creatinine 1.06 H (0.7-1.0) mg/dL Estim Creat Clear Calc 28 ml/min Estimated GFR 49 L (59 - ) Glucose 91 (65-110) mg/dL Calcium 9.0 (8.4-10.2) mg/dL Iron 31 L (37-170) ug/dL TIBC 474 H (261-462) ug/dL % Saturation 7 L (20-50) % Transferrin 381 (206-381) mg/dL Ferritin 19.50 (11.1-264) ng/mL Total Bilirubin 0.5 (0.2-1.3) mg/dL AST 25 (14-36) U/L ALT 13 (6-35) U/L Alkaline Phosphatase 77 (38-126) U/L Lactate Dehydrogenase 215 (120-246) U/L Troponin I 0.013 < 0.012 (0.000-0.034) ng/mL NT-Pro-B Natriuret Pep 2230 H (19.9-100) pg/mL Total Protein 6.4 (6.3-8.2) g/dL Albumin 4.0 (3.5-5.1) g/dL Vitamin B12 298.0 (239-931) pg/mL Folate 17.0 (2.76->20) ng/mL Influenza A (RT-PCR) Negative (Negative) Influenza B (RT-PCR) Negative (Negative) RSV (RT-PCR) Negative (Negative) SARS-CoV-2 RNA (RT-PCR) Negative (Negative) <Vida Chan PA-C - Last Filed: 08/13/25 09:14> Lab Results 08/12/25 08/12/25 08/12/25 Range/Units 16:06 18:11 20:59 WBC 6.7 (4.5-10.0) K/mm3 RBC 3.23 L (4.2-5.4) M/mm3 Hgb 7.8 L (12.0-15.0) g/dL Hct 26.2 L (37.0-47.0) % MCV 81.1 (80-100) fl MCH 24.1 L (26-34) pg MCHC 29.8 L (32-36) g/dl RDW 16.0 H (11.5-14.5) % Plt Count 180 D (150-375) k/mm3 MPV 9.8 (7.4-10.4) fl Immature Gran % (Auto) 0.1 (0-0.5) % Neut % (Auto) 45.5 (45.5-73.1) % Lymph % (Auto) 39.3 (18.3-44.2) % [place] % (Auto) 12.6 H (2.6-8.5) % Eos % (Auto) 1.6 (0-4.4) % Baso % (Auto) 0.9 (0.2-1.2) % Lymph # (Auto) 2.65 (0.9-3.2) K/mm3 [place] # (Auto) 0.9 H (0.1-0.6) K/mm3 Eos # (Auto) 0.1 (0-0.3) K/mm3 Baso # (Auto) 0.1 (0.0-0.1) K/mm3 Abs Immat Gran (auto) 0.01 (0.00-0.031) K/mm3 Absolute Neuts (auto) 3.1 (1.3-6.7) K/mm3 Absolute Nucleated RBC 0.000 (0.0-0.012) K/mm3 Band Neutrophils % 0 (0-6) % Nucleated RBC % 0.0 (0.0-0.2) % Platelet Estimate Adequate (Adequate) Hypochromasia 1+ Anisocytosis 2+ Schistocytes None seen Absolute Retic 0.06 (0.02-0.10) 10^6/uL Percent Retic 1.92 (0.7-4.3) % Immature Retic Fraction 26.4 H (3.0-15.9) % Retic Hgb Content 24.8 L (28.2-36.6) pg PT 15.4 H (11.1-14.7) Seconds INR 1.2 APTT 26.1 (22.3-36.8) Seconds D-Dimer 0.44 (<0.48) ug/mL Sodium 129 L (137-145) mmol/L Potassium 4.5 (3.4-5.0) mmol/L Chloride 99 (98-107) mmol/L Carbon Dioxide 23 (22-30) mmol/L Anion Gap 7 (4-12) mmol/L BUN 17 (7-17) mg/dL Creatinine 1.06 H (0.7-1.0) mg/dL Estim Creat Clear Calc 28 ml/min Estimated GFR 49 L (59 - ) Glucose 91 (65-110) mg/dL Calcium 9.0 (8.4-10.2) mg/dL Iron 31 L (37-170) ug/dL TIBC 474 H (261-462) ug/dL % Saturation 7 L (20-50) % Transferrin 381 (206-381) mg/dL Ferritin 19.50 (11.1-264) ng/mL Total Bilirubin 0.5 (0.2-1.3) mg/dL AST 25 (14-36) U/L ALT 13 (6-35) U/L Alkaline Phosphatase 77 (38-126) U/L Lactate Dehydrogenase 215 (120-246) U/L Troponin I 0.013 < 0.012 (0.000-0.034) ng/mL NT-Pro-B Natriuret Pep 2230 H (19.9-100) pg/mL Total Protein 6.4 (6.3-8.2) g/dL Albumin 4.0 (3.5-5.1) g/dL Vitamin B12 298.0 (239-931) pg/mL Folate 17.0 (2.76->20) ng/mL Influenza A (RT-PCR) Negative (Negative) Influenza B (RT-PCR) Negative (Negative) RSV (RT-PCR) Negative (Negative) SARS-CoV-2 RNA (RT-PCR) Negative (Negative) <Alicia Murguia PA-C - Last Filed: 08/12/25 23:34> Lab Results 08/12/25 08/12/25 08/12/25 Range/Units 16:06 18:11 20:59 WBC 6.7 (4.5-10.0) K/mm3 RBC 3.23 L (4.2-5.4) M/mm3 Hgb 7.8 L (12.0-15.0) g/dL Hct 26.2 L (37.0-47.0) % MCV 81.1 (80-100) fl MCH 24.1 L (26-34) pg MCHC 29.8 L (32-36) g/dl RDW 16.0 H (11.5-14.5) % Plt Count 180 D (150-375) k/mm3 MPV 9.8 (7.4-10.4) fl Immature Gran % (Auto) 0.1 (0-0.5) % Neut % (Auto) 45.5 (45.5-73.1) % Lymph % (Auto) 39.3 (18.3-44.2) % [place] % (Auto) 12.6 H (2.6-8.5) % Eos % (Auto) 1.6 (0-4.4) % Baso % (Auto) 0.9 (0.2-1.2) % Lymph # (Auto) 2.65 (0.9-3.2) K/mm3 [place] # (Auto) 0.9 H (0.1-0.6) K/mm3 Eos # (Auto) 0.1 (0-0.3) K/mm3 Baso # (Auto) 0.1 (0.0-0.1) K/mm3 Abs Immat Gran (auto) 0.01 (0.00-0.031) K/mm3 Absolute Neuts (auto) 3.1 (1.3-6.7) K/mm3 Absolute Nucleated RBC 0.000 (0.0-0.012) K/mm3 Band Neutrophils % 0 (0-6) % Nucleated RBC % 0.0 (0.0-0.2) % Platelet Estimate Adequate (Adequate) Hypochromasia 1+ Anisocytosis 2+ Schistocytes None seen Absolute Retic 0.06 (0.02-0.10) 10^6/uL Percent Retic 1.92 (0.7-4.3) % Immature Retic Fraction 26.4 H (3.0-15.9) % Retic Hgb Content 24.8 L (28.2-36.6) pg PT 15.4 H (11.1-14.7) Seconds INR 1.2 APTT 26.1 (22.3-36.8) Seconds D-Dimer 0.44 (<0.48) ug/mL Sodium 129 L (137-145) mmol/L Potassium 4.5 (3.4-5.0) mmol/L Chloride 99 (98-107) mmol/L Carbon Dioxide 23 (22-30) mmol/L Anion Gap 7 (4-12) mmol/L BUN 17 (7-17) mg/dL Creatinine 1.06 H (0.7-1.0) mg/dL Estim Creat Clear Calc 28 ml/min Estimated GFR 49 L (59 - ) Glucose 91 (65-110) mg/dL Calcium 9.0 (8.4-10.2) mg/dL Iron 31 L (37-170) ug/dL TIBC 474 H (261-462) ug/dL % Saturation 7 L (20-50) % Transferrin 381 (206-381) mg/dL Ferritin 19.50 (11.1-264) ng/mL Total Bilirubin 0.5 (0.2-1.3) mg/dL AST 25 (14-36) U/L ALT 13 (6-35) U/L Alkaline Phosphatase 77 (38-126) U/L Lactate Dehydrogenase 215 (120-246) U/L Troponin I 0.013 < 0.012 (0.000-0.034) ng/mL NT-Pro-B Natriuret Pep 2230 H (19.9-100) pg/mL Total Protein 6.4 (6.3-8.2) g/dL Albumin 4.0 (3.5-5.1) g/dL Vitamin B12 298.0 (239-931) pg/mL Folate 17.0 (2.76->20) ng/mL Influenza A (RT-PCR) Negative (Negative) Influenza B (RT-PCR) Negative (Negative) RSV (RT-PCR) Negative (Negative) SARS-CoV-2 RNA (RT-PCR) Negative (Negative) <Ronald iDas MD - Last Filed: 08/13/25 01:07> Imaging Data Attestation: I personally reviewed and interpreted this imaging study as follows: < Alicia Murguia PA-C - Last Filed: 08/12/25 23:34> Radiologist's impression: ITS Impressions Chest X-Ray 08/12/25 14:26 IMPRESSION: 1. Small pleural effusions. <Alicia Murguia PA-C - Last Filed: 08/12/25 23:34> ECG Data EKG #1: Attestation: I personally reviewed and interpreted this ECG as follows: <Alicia Murguia PA-C - Last Filed: 08/12/25 23:34> ECG completion date: 08/12/25 <Alicia Murguia PA-C - Last Filed: 08/12/25 23:34> ECG completion time: 19:03 <COCO Walker Last Filed: 08/12/25 23:34> EKG Interpretation: normal rate (73), sinus rhythm, non-specific ST changes, LBBB (chronic) and prolonged QT <Alicia Murguia PA-C - Last Filed: 08/12/25 23:34> Discharge Plan Discharge Clinical Impression: Pleural effusion, Hyponatremia CHF (congestive heart failure) Qualifiers: Heart failure type: unspecified Heart failure chronicity: acute Qualified Code(s): I50.9 - Heart failure, unspecified Anemia Qualifiers: Anemia type: unspecified type Qualified Code(s): D64.9 - Anemia, unspecified <Vida Chan PA-C - Last Filed: 08/13/25 09:14> Patient Disposition: Still a Patient <Vida Chan PA-C - Last Filed: 08/13/25 09:14> Condition: Stable <Vida Chan PA-C - Last Filed: 08/13/25 09:14>
--- OUTSIDE RECORDS SUMMARY | 2025-08-12 14:41 | XMS_ITS | Encounter Summary ---
Author Organization [facility] Address [address] [place] [address] Phone Care Team Providers Care Arc And Gas Welder Name Role Phone Ashlee Doyle MD Primary Care Provider [phone] Cruz Lombardi MD Unavailable [phone] Encounter Details Date Type Department Care Team (Latest Contact Info) Description 08/05/2025 Results Follow-Up [facility] [address] [place] [address] Cruz Lombardi MD [facility] [address] [address] IRON W/ IRON BINDING CAPACITY [place], RETICULOCYTE COUNT (RETIC), LACTATE DEHYDROGENASE (LD), Additional followed-up results: 2 Social History Tobacco Use Types Packs/Day Years Used Date Smoking Tobacco: Never Smokeless Tobacco: Never Alcohol Use Standard Drinks/Week Comments Not Currently 0 (1 standard drink = 0.6 oz pur e alcohol) Comments Unknown Sex and Gender Information Value Date Recorded Sex Assigned at Not on file Legal Sex Female 9:23 PM CDT Gender Identity Not on file Sexual Orientation Not on file documented as of this encounter Functional Status * BP Answer Date of Assessment Author 130/62 08/05/2025 10:47 AM Ursula Dotosn RMA * Temp Answer Date of Assessment Author 98 08/05/2025 10:47 AM Ursula Dotson RMA * Pulse Answer Date of Assessment Author 80 08/05/2025 10:47 AM METROLOGY MANAGER Brandon, Ursula A, RMA * Resp Answer Date of Assessment Author 18 08/05/2025 10:47 AM METROLOGY MANAGER Brandon, Ursula A, RMA * SpO2 Answer Date of Assessment Author 99 08/05/2025 10:47 AM METROLOGY MANAGER Brandon, Ursula A, RMA * Question Answer Date of Assessment Author Has the patient fallen twice in the past year without injury or once in the past year with injury? Yes 08/05/2025 10:54 AM METROLOGY MANAGER C onrad, Ursula A, RMA Does the patient report or d o you observe difficulty in gait or balance? No 08/05/2025 10:54 AM METROLOGY MANAGER Brandon, Ursula A, RMA * Question Answer Date of Assessment Author Initial Score 0 08/05/2025 10:54 AM METROLOGY MANAGER Con rad, Ursula A, RMA Little interest or pleasure in doing things Not at all 08/05/2025 10:54 AM METROLOGY MANAGER Brandon, Ursula A, RMA Feeling down, depressed, or hopeless Not at all 08/05/2025 10:54 AM METROLOGY MANAGER Brandon, Ursula A, RMA * Question Answer Date of Assessment Author Has the patient fallen twice in the past year without injury or once in the past year with injury? Yes 08/05/2025 10:54 AM METROLOGY MANAGER C onrad, Ursula A, RMA Does the patient report or d o you observe difficulty in gait or balance? No 08/05/2025 10:54 AM METROLOGY MANAGER Brandon, Ursula A, RMA * Question Answer Date of Assessment Author Initial Score 0 08/05/2025 10:54 AM METROLOGY MANAGER Con rad, Ursula A, RMA Little interest or pleasure in doing things Not at all 08/05/2025 10:54 AM METROLOGY MANAGER Brandon, Ursula A, RMA Feeling down, depressed, or hopeless Not at all 08/05/2025 10:54 AM METROLOGY MANAGER Brandon, Ursula A, RMA * Over the past 2 weeks, how often have you been bothered by any of the following problems? Question Answer Date of Assessment Author Patient Health Questionnaire -2 Score 0 08/05/2025 10:54 AM METROLOGY MANAGER Brandon, Ursula A, RMA documented as of this encounter Mental Status * BP Answer Entry Date Author 130/62 08/05/2025 10:47 AM METROLOGY MANAGER Brandon, Ursula A, RMA * Temp Answer Entry Date Author 98 08/05/2025 10:47 AM METROLOGY MANAGER Brandon, Ursula A, RMA * Pulse Answer Entry Date Author 80 08/05/2025 10:47 AM METROLOGY MANAGER Brandon, Ursula A, RMA * SpO2 Answer Entry Date Author 99 08/05/2025 10:47 AM METROLOGY MANAGER Brandon, Ursula A, RMA * Question Answer Entry Date Author Has the patient fallen twice in the past year without injury or once in the past year with injury? Yes 08/05/2025 10:54 AM METROLOGY MANAGER C onrad, Ursula A, RMA Does the patient report or d o you observe difficulty in gait or balance? No 08/05/2025 10:54 AM METROLOGY MANAGER Brandon, Ursula A, RMA * Question Answer Entry Date Author Initial Score 0 08/05/2025 10:54 AM METROLOGY MANAGER Con rad, Ursula A, RMA Little interest or pleasure in doing things Not at all 08/05/2025 10:54 AM METROLOGY MANAGER Brandon, Ursula A, RMA Feeling down, depressed, or hopeless Not at all 08/05/2025 10:54 AM METROLOGY MANAGER Brandon, Ursula A, RMA documented in this encounter Plan of Treatment Upcoming Encounters Date Type Department Care Team (Late st Contact Info) Description 08/19/2025 10:45 AM METROLOGY MANAGER Office Visit [facility] [address] [address] Cruz Lombardi MD [address] [place] [phone] documented as of this encounter Visit Diagnoses Not on filedocumented in this encounter Care Teams Arc And Gas Welder Relationship Specialty Start Date End Date Ashlee Doyle MD [address] [place] [id number] PCP - General Internal Medicine 07/22/25 Cruz Lombardi MD [address] [place] [phone] Consulting Physician Oncology 07/24/25 documented as of this encounter
--- OUTSIDE RECORDS SUMMARY | 2025-08-12 14:41 | XMS_ITS | Clinical Summary ---
Author Organization [facility] Address [address] [place] [address] Phone Care Team Providers Care Director Of Oncology Name Role Phone Ashlee Doyle MD Primary Care Provider rCuz Lombardi MD Unavailable [phone] Allergies Active Allergy Reactions Criticality Noted Date Comments Solifenacin Other (see Comments) Low 11/25/2022 Dry mouth Sulfa Antibiotics Unknown 11/19/2019 Sulfur Dioxide Swelling Medium 11/14/2023 Medications amiodarone HCl (CORDARONE) 100 MG Tablet Take 100 mg by mouth daily. 03/01/20 25 Active rosuvastatin (CRESTOR) 5 MG Tablet Take 5 mg by mouth daily. 01/27/20 22 Active Eliquis 2.5 MG Tablet Take 2.5 mg by mouth 2 times daily. Active timolol (TIMOPTIC) 0.5 % Solution instill 1 drop into both eyes twice daily Active Entresto 24-26 MG Tablet TAKE 1 TABLET TWICE A DAY. DISCONTINUE TELMISARTAN 06/14/20 25 Active iron polysaccharides (NIFEREX) 150 MG Capsule TAKE 1 CAPSULE EVERY OTHER DAY BY MOUTH 05/14/20 25 Active pantoprazole (PROTONIX) 40 MG Tablet Delayed Response Take 40 mg by mouth. 10/30/19 25 026 Active acetaminophen (TYLENOL) 500 MG Tablet Take 1,000 mg by mouth. 08/21/20 21 Active Active Problems Problem Noted Date Diagnosed Date Anemia due to unknown mechanism 08/05/2025 Iron deficiency anemia, unspecified 08/05/2025 Encounters Date Type Department Care Team Description 08/05/2025 11:15 AM LAY OUT TECHNICIAN Lab [facility] [address] [phone] Lab, Cc [place] Anemia due to unknown mechanism 08/05/2025 10:30 AM LAY OUT TECHNICIAN Office Visit [facility] [address] [phone] Cruz Lombardi MD Anemia due to unknown mechanism (Primary Dx) 08/05/2025 Results Follow-Up [facility] [address] [phone] rCuz Lombardi MD IRON W/ IRON BINDING CAPACITY [place], RETICULOCYTE COUNT (RETIC), LACTATE DEHYDROGENASE (LD), Additional followed-up results: 2 08/05/2025 Travel from Last 3 Months Family History Medical History Relation Name Comments Diabetes Brother Heart Disease Mother Relation Name Status Comments Brother Mother Social History Tobacco Use Types Packs/Day Years [...] Sign Reading Time Taken Comments Blood Pressure 130/62 08/05/2025 10:47 AM LAY OUT TECHNICIAN Pulse 80 08/05/2025 10:47 AM LAY OUT TECHNICIAN Temperature 36.7 C (98 F) 08/05/2025 10:47 AM LAY OUT TECHNICIAN Respiratory Rate 18 08/05/2025 10:47 AM LAY OUT TECHNICIAN Oxygen Saturation 99% 08/05/2025 10:47 AM LAY OUT TECHNICIAN Inhaled Oxygen Concentration - - Weight 54.2 kg (119 lb 8 oz) 08/05/2025 10:47 AM LAY OUT TECHNICIAN Height 166.4 cm (5' 5.5) 08/05/2025 10:47 AM CS T Body Mass Index 19.58 08/05/2025 10:47 AM LAY OUT TECHNICIAN Plan of Treatment Upcoming Encounters Date Type Department Care Team (Late st Contact Info) Description 08/19/2025 10:45 AM LAY OUT TECHNICIAN Office Visit [facility] [address] [phone] Cruz Lombardi MD [address] [place] [address] Health Maintenance Due Date Last Done Comments DEXA Bone Density 1935 Hepatitis C Virus (HCV) Screening 1935 Varicella Immunization (1 of 2 - 13+ 2-dose series) 1948 Medicare Initial AWV G0438 12/19/2003 SARS-COV-2 Immunization ( season) 2025 06/18/2025, 12/19/2024, 05/30/2024, Additional history exists Hepatitis B Immunization Completed 008, 07/07/2007, 06/05/2007 TdaP Immunization Completed 11/10/2012 Zoster Immunization Completed 03/29/2019, 09/21/2018, 06/16/2018, Additional history exists Respiratory Syncytial Virus (RSV) Immunization (Adult) Completed 06/10/2023 Influenza Immunization Completed , 05/30/2024, 06/10/2023, Additional history exists Pneumococcal Immunization (50+ years) Completed 07/26/2025, 02/20/2015, 05/21/2009, Additional history exists Human Papillomavirus (HPV) Immunization Aged Out No longer eligible based on patient's age to complete this topic Meningococcal Immunization (ACWY) Aged Out No longer eligible based on patient's age to complete this topic Rotavirus Immunization Aged Out No lo nger eligible based on patient's age to complete this topic Procedures Procedure Name Priority Date/Time Associated Diagnosis Comments CBC WITH AUTO DIFF OH Routine 08/05/2025 11:20 AM LAY OUT TECHNICIAN CMP (COMPREHENSIVE METABOLIC PANEL) Routine 08/05/2025 11:20 AM LAY OUT TECHNICIAN Anemia due to unknown mechanism LACTATE DEHYDROGENASE (LD) Routine 08/05/2025 11:20 AM LAY OUT TECHNICIAN Anemia due to unknown mechanism FOLIC ACID (FOLATE) Routine 08/05/2025 1 1:20 AM LAY OUT TECHNICIAN Anemia due to unknown mechanism FERRITIN Routine 08/05/2025 11:20 AM LAY OUT TECHNICIAN Anemia due to unknown mechanism RETICULOCYTE COUNT (RETIC) Routine 08/05/2025 11:20 AM LAY OUT TECHNICIAN Anemia due to unknown mechanism IRON W/ IRON BINDING CAPACITY OH Routine 08/05/2025 11:20 AM LAY OUT TECHNICIAN Anemia due to unknown mechanism VITAMIN B12 Routine 08/05/2025 11:20 AM LAY OUT TECHNICIAN Anemia due to unknown mechanism HAPTOGLOBIN Routine 08/05/2025 11:20 AM LAY OUT TECHNICIAN Anemia due to unknown mechanism ELECTROPHORESIS W/ TOTAL PROTEIN SERUM Routine 08/05/2025 11:20 AM LAY OUT TECHNICIAN Anemia due to unknown mechanism from Last 3 Months Results * (ABNORMAL) IRON W/ IRON BINDING CAPACITY OH (08/05/2025 11:20 AM LAY OUT TECHNICIAN) IRON 20(L) 50 - 212 ug/dL [facility] UIBC 457(H) 155 - 355 ug/dL [facility] TIBC 477 261 - 478 ug/dl [facility] % Saturation 4(L) 20 - 50 % [facility] 08/05/2025 11:2 0 AM LAY OUT TECHNICIAN Narrative [facility] - 08/05/2025 12:29 PM LAY OUT TECHNICIAN Release to patient->Immediate us Cruz Lombardi MD LAB SEND OUTS Final Result [facility] [place] [address], [place] [phone] * (ABNORMAL) CBC WITH AUTO DIFF OH (08/05/2025 11:20 AM LAY OUT TECHNICIAN) WBC 7.0 4.0 - 10.0 10*3/uL [facility] HGB 8.2(L) 11.2 - 15.7 g/dL [facility] HCT 27.8(L) 34.1 - 44.9 % [facility] PLT 192 163 - 369 10*3/uL [facility] MPV 9.2(L) 9.4 - 12.4 fL [facility] RBC 3.34(L) 3.93 - 5.22 10*6/uL [facility] MCV 83 79 - 95 fL [facility] MCH 24.6(L) 25.6 - 32.2 pg [facility] MCHC 29.5(L) 32.2 - 36.5 g/dL [facility] RDW 16.1(H) 11.6 - 14.4 % [facility] Neutrophils % 64.2 36.0 - 66.0 % [facility] Lymphocytes % 24.2 19.0 - 40.0 % [facility] Monocytes % 9.1 4.1 - 12.1 % [facility] Eosinophils % 1.2 0.0 - 3.5 % [facility] Basophils % 1.0 0.0 - 1.0 % [facility] Absolute Neutrophils 4.5 1.4 - 6.6 10*3/uL [facility] Absolute Lymphocytes 1.7 0.8 - 4.0 10*3/uL [facility] Absolute Monocytes 0.6 0.2 - 1.2 10*3/uL [facility] Absolute Eosinophils 0.1 0.0 - 0.4 10*3/uL [facility] Absolute Basophils 0.1 0.0 - 0.1 10*3/uL [facility] 08/05/2025 11:2 0 AM LAY OUT TECHNICIAN us Cruz Lombardi MD LAB SEND OUTS Final Result [facility] [place] [address], * VITAMIN B12 (08/05/2025 11:20 AM LAY OUT TECHNICIAN) Vitamin B12 209 180 - 914 pg/mL [facility] Blood 08/05/2025 11:2 0 AM LAY OUT TECHNICIAN [facility] - 08/06/2025 3:15 PM LAY OUT TECHNICIAN Release to patient->Immediate Cruz Lombardi MD CHEMISTRY ORDERABLES Final R esult Performing Organization Address [facility] de Phone Number [facility] [place] [address], * (ABNORMAL) RETICULOCYTE COUNT (RETIC) (08/05/2025 11:20 AM LAY OUT TECHNICIAN) Reticulocyte count 1.71(H) 0.50 - 1.70 % [facility] RET-He 23.80(L) 28.20 - 36.60 pg [facility] Comment: RET-He is a direct assessment of incorporation of iron into erythrocyte hemoglobin. It provides an indirect measure of the iron available for new erythropoiesis over past 2-4 days. Blood 08/05/2025 11:2 0 AM LAY OUT TECHNICIAN [facility] - 08/05/2025 11:38 AM LAY OUT TECHNICIAN Release to patient->Immediate Cruz Lombardi MD HEMATOLOGY ORDERABLES Final Result Performing Organization Address [facility] de Phone Number [facility] [address], * LACTATE DEHYDROGENASE (LD) (08/05/2025 11:20 AM LAY OUT TECHNICIAN) LDH 195 140 - 271 U/L [facility] Blood 08/05/2025 11:2 0 AM LAY OUT TECHNICIAN Narrative [facility] - 08/05/2025 12:13 PM LAY OUT TECHNICIAN Release to patient->Immediate Cruz Lombardi MD CHEMISTRY ORDERABLES Final R esult Performing Organization Address City/[facility]/ZIP Co de Phone Number [facility] [address] [place] [address], * HAPTOGLOBIN (08/05/2025 11:20 AM LAY OUT TECHNICIAN) HAPTO 176 44 - 215 mg/dL [facility] Blood 08/05/2025 11:2 0 AM LAY OUT TECHNICIAN [facility] - 08/06/2025 3:15 PM LAY OUT TECHNICIAN Release to patient->Immediate Cruz Lombardi MD CHEMISTRY ORDERABLES Final R esult Performing Organization Address [facility]/ZIP Co de Phone Number [facility] [place] [address] [place] [address], * FOLIC ACID (FOLATE) (08/05/2025 11:20 AM LAY OUT TECHNICIAN) Folate >20.00 >=5.90 ng/mL [facility] Blood 08/05/2025 11:2 0 AM LAY OUT TECHNICIAN [facility] - 08/06/2025 3:15 PM LAY OUT TECHNICIAN Release to patient->Immediate IS THE PATIENT REQUIRED TO BE FASTING FOR 12 HOURS?->No Cruz Lombardi MD CHEMISTRY ORDERABLES Final R esult Performing Organization Address City/[facility]/ZIP Co de Phone Number [facility] [address] [place] [place] [address], * FERRITIN (08/05/2025 11:20 AM LAY OUT TECHNICIAN) Ferritin 17 11 - 307 ng/mL [facility] Blood 08/05/2025 11:2 0 AM LAY OUT TECHNICIAN Narrative [facility] - 08/06/2025 3:15 PM LAY OUT TECHNICIAN Release to patient->Immediate Cruz Lombardi MD CHEMISTRY ORDERABLES Final R esult [facility] [place] [address], [place] [phone] * (ABNORMAL) ELECTROPHORESIS W/ TOTAL PROTEIN SERUM (08/05/2025 11:20 AM LAY OUT TECHNICIAN) PROTEIN, TOTAL, SERUM 5.8(L) 6.0 - 8.5 G/DL [facility] ALBUMIN 3.4 2.9 - 4.4 G/DL [facility] [id number] 0.3 0.0 - 0.4 G/DL [facility] [id number] 0.7 0.4 - 1.0 G/DL [facility] BETA GLOBULIN 0.9 0.7 - 1.3 G/DL [facility] GAMMA GLOBULIN 0.5 0.4 - 1.8 G/DL [facility] M-SPIKE NOT OBSERVED NOT OBSERVED G/DL [facility] GLOBULIN, TOTAL 2.4 2.2 - 3.9 G/DL [facility] A/G RATIO 1.4 0.7 - 1.7 [facility] PLEASE NOTE: COMMENT [facility] Comment: PROTEIN ELECTROPHORESIS SCAN WILL FOLLOW VIA COMPUTER, MAIL, OR GRADER PATROL DELIVERY. PDF . [facility] Blood 08/05/2025 11:2 0 AM LAY OUT TECHNICIAN Narrative [facility] - 08/06/2025 3:09 PM LAY OUT TECHNICIAN TESTING PERFORMED AT: [] [facility], [address] [place] [address], [place], [address], PHONE: [phone], SALES VENDOR: VANESSA MACHADO, PHD Release to patient->Immediate Cruz Lombardi MD CHEMISTRY ORDERABLES Final R esult [facility] [address] [place] [address], * (ABNORMAL) CMP (COMPREHENSIVE METABOLIC PANEL) (08/05/2025 11:20 AM LAY OUT TECHNICIAN) Glucose 98 70 - 105 mg/dL [facility] Blood Urea Nitrogen 13 7 - 25 mg/dL [facility] Creatinine 1.1 0.6 - 1.2 mg/dL [facility] Sodium 136 136 - 145 mEq/L [facility] Potassium 4.2 3.5 - 5.1 mEq/L [facility] Chloride 102 98 - 107 mEq/L [facility] Bicarbonate 25 21 - 31 mEq/L [facility] Total Bilirubin 0.4 0.3 - 1.0 mg/dL [facility] Alk. Phosphatase 79 34 - 104 U/L [facility] Aspartate Aminotransferase 16 13 - 39 U/L [facility] Alanine Aminotransferase 9 7 - 52 U/L [facility] Total Protein 5.9(L) 6.4 - 8.9 g/dL [facility] Albumin 4.1 3.5 - 5.7 g/dL [facility] Calcium 9.0 8.6 - 10.3 mg/dL [facility] Anion Gap 13.2 7.0 - 15.0 mEq/L [facility] Globulin 1.8(L) 2.0 - 3.5 g/dL [facility] EGFR 48(L) >60 ml/min/1. 73m2 [facility] Comment: This eGFR is calculated using 2020 CKD-EPI Creatinine equation without race modifier based on the NKF-ASN task force recommendations Equation: wTXE=867*min(SCr/k,1)a*max(SCr/k,1)-1.200*0.9938Age*1.012 (if female), where SCr is serum creatinine, k is 0.7 for females and 0.9 for males, and a is -0.241 for females and -0.302 for males Blood 08/05/2025 11:2 0 AM LAY OUT TECHNICIAN Narrative [facility] - 08/05/2025 12:13 PM LAY OUT TECHNICIAN Release to patient->Immediate IS THE PATIENT REQUIRED TO BE FASTING FOR 8 HOURS?->No Cruz Lombardi MD CHEMISTRY ORDERABLES Final R esult [facility] [place] [address], from Last 3 Months Insurance MEDICARE [facility] Care Teams Director Of Oncology Relationship Specialty Start Date End Date Ashlee Doyle MD [address] [place] [id number] PCP - General Internal Medicine 07/22/25 Cruz Lombardi MD [address] [place], [place] [id number] Consulting Physician Oncology 07/24/25
--- OUTSIDE RECORDS SUMMARY | 2025-08-12 14:42 | XMS_ITS | Clinical Summary ---
Author Organization [facility] Address [address] [place] [address] Care Team Providers Care Chronic Specialist Name Role Phone Miscellaneous, Not In File Unavailable Unava ilable Sheryl Latham MD Unavailable [phone] Ashlee Doyle MD Primary Care Provider [phone] Jonh Junior MD Unavailable Allergies Active Allergy Reactions Criticality Noted Date Comments Solifenacin Other (See comments) Low 11/25/2022 Dry mouth Sulfa (Sulfonamide Antibiotics) Other (See comments),Rash,Swollen tongue High 07/02/2014 Sulfur Dioxide Swelling Medium 11/14/2023 [...] 2 (two) times a day 2 Active melatonin 3 mg tablet extended release Take 1 tablet by mouth as needed 3 Active cyanocobalamin (Vitamin B-12) 1,000 mcg tablet Take 1 tablet (1,000 mcg total) by mouth daily 4 Active Eliquis 2.5 mg tablet TAKE 1 TABLET BY MOUTH EVERY 12 HOURS 180 tablet 3 4 Active rosuvastatin (CRESTOR) 5 mg tablet Take [...] then Tuesday// Tuesday 42.5 g 5 5 Active benzocaine-menth oL (CHLORASEPTIC) 6-10 mg lozenge Take 1 lozenge by mouth every 3 (three) hours as needed for sore throat 0 5 Active ramelteon (ROZEREM) 8 mg tabletIndication s:Sleep-Onset Insomnia Take 1 tablet (8 mg total) by mouth nightly as needed for sleep 0 5 02/26/20 26 Active loperamide (IMODIUM) 2 mg capsule Take 1 capsule (2 mg total) by mouth 3 (three) times a day as needed for diarrhea 0 5 Active amiodarone (PACERONE) 100 mg tabletIndication s:Atrial fibrillation with RVR (HCC),Essential hypertension TAKE 1 TABLET BY MOUTH EVERY DAY 90 tablet 3 5 Active Entresto 24-26 mg tabletIndication s:Ischemic cardiomyopathy,A symptomatic LV dysfunction TAKE 1 TABLET TWICE A DAY. DISCONTINUE TELMISARTAN 180 tablet 3 5 Active polysaccharide iron complex (NU-IRON) 150 mg iron capsule TAKE 1 CAPSULE EVERY OTHER DAY BY MOUTH 5 Active Active Problems Problem Noted Date Diagnosed Date Pulmonary edema 02/21/2025 Assessment & Plan (02/25/2025 11:54 AM CDT): - 2L NC on admission, - 6/4 Desatted to 80s with SOB and tachy to 110s, placed on 6L with sats in mid 90s, CT chest PE neg, CXR shows worsening pulm edema/bilateral effusions, lasix 20 IV given - 6/5 CXR reviewed, lasix 20mg IV given, on 2L NC. H/o HF and last NICOL 05/2023, ordered TTE and BNP. - 02/22 CXR reviewed, pt refused lasix yesterday, lasix 40mg given, will daily CXR. - 02/23 CXR reviewed, mild pulm edema, unchanged pleural effusion, lasix 20mg today. On room air - 02/25 on room air. Hyponatremia 02/20/2025 Assessment & Plan (02/25/2025 11:54 AM CDT): -Na 132 on admission. -continue restriction and Gatorade. -02/25 Na 135, RESOLVED Discharge planning issues 02/19/2025 Assessment & Plan (02/25/2025 11:53 AM CDT): -02/18 pending PT/OT, ADD tomorrow. -02/19 PT rec IPR, pending OT, ADD tomorrow. -02/20 Patient is medically stable for discharge, SW/CM updated. Discharge to IPR today ->SOB and tachy when moving to EMS, cancelled discharge order -02/21 cardio c/s for high BNP -02/22 will try to wean off Oxygen before discharge -02/23-02/24 on room air, awaiting [facility]IS[facility] placement -02/25 Patient is medically stable for discharge, SW/CM updated. Discharge to [facility]IS[facility] today Treatment plan done. At risk for malnutrition 02/19/2025 Assessment & Plan (02/20/2025 12:37 PM CDT): -BMI 19.14, ordered nutrition c/s -encourage PO intake on discharge. Heart failure 02/18/2025 Assessment & Plan (02/25/2025 11:51 AM CDT): -last TTE on 05/2023 EF of 47% with some segmental hypokinesis, rec pacemaker but not ready for that. -home spironolactone, -02/21 BNP >11626, ordered Cardio c/s, TTE, Trop, EKG, tele -02/22 TTE with EF 48%, similar with previous one on 05/2023, Cardio rec Lasix, daily standing weights, continuous telemetry, K>4, Mg>2, strict I/O's, continue amiodarone, continue apixaban, initiate home GDMT as able -02/23 Added metop 6.25 BID, SGLT2 inhibitor per Cardiology recs, cont on discharge. Follow up with Cardiology oncology on 03/21/2025. Glaucoma 02/18/2025 Assessment & Plan (02/20/2025 12:19 PM CDT): -home timolol, continue on discharge Follow up with established provider for ongoing evaluation. Right superior and inferior pubic rami fractures 02/17/2025 Assessment & Plan (02/19/2025 2:24 PM CDT): - Ortho c/s - Nonop management - WBAT RLE with walker - Pain control - PT/OT - Reg diet WB Status: protected weightbearing right lower extremity (WBAT with walker) Activity: Ambulate with assist Therapy: PT for OOB/mobilization as tolerated. Additional Needs: Bone health referral at discharge (pathologic osteoporotic fracture: low energy mechanism) Ortho Trauma will sign off at this time (02/18), and follow their hospital course peripherally. Please call with any concerns. 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 Asked patient to bring notes or forward prior to next visit. Follows with Dr. Izaguirre at [facility]. Will have second opinion with [facility] next available per patient request. CVA (cerebral vascular accident) 01/13/2022 History of severe acute resp iratory syndrome coronavirus 2 (SARS-CoV-2) disease 12/11/2021 On amiodarone therapy 12/11/2021 Bradycardia 12/04/2021 Sinus pause 12/04/2021 Immunocompromised 10/16/2021 Adrenal mass 07/24/2021 Ischemic cardiomyopathy 07/21/2021 Macrocytosis 07/07/2021 Paroxysmal atrial fibrillation 06/23/2021 Assessment & Plan (02/20/2025 12:11 PM CDT): -home Eliquis(cont), amiodarone(cont) Follow up with established provider for ongoing evaluation. 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 Follow up with established provider for ongoing evaluation. Adrenal insufficiency 05/08/2021 Assessment & Plan (02/20/2025 12:25 PM CDT): -following Endocrinology since 2020, hyponatremia likely related to adrenal insufficiency, Follow up with established provider for ongoing evaluation. 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 Follow up with established provider for ongoing evaluation. 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 Follow up with established provider for ongoing evaluation. Assessment & Plan (05/06/2021 4:51 PM CDT): [...] GERD (gastroesophageal reflux disease) Assessment & Plan (02/25/2025 11:50 AM CDT): -home pepcid, protonix, cont -reports thrush, will cont fluconazole on discharge for 4 days. Follow up with established provider for ongoing evaluation. Assessment & Plan (05/06/2021 5:15 PM CDT): -continue PPI Assessment & Plan (02/16/2021 2:01 PM CDT): - Continue PPI Assessment & Plan (02/15/2021 12:27 PM CDT): - Continue PPI Assessment & Plan (02/14/2021 3:12 PM CDT): - Continue PPI Assessment & Plan (02/12/2021 1:01 AM CDT): - Continue PPI. 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 Encounters Date Type Department Care Team Description 06/30/2025 Results Follow-Up [facility] [address] [facility] Floor 1, [address] [place] [address] Jonh Junior MD Pulmonary Function Test - 06/21/2025 Telephone [facility] [address] [facility] 8th [place] [address] [place] [address] Jonh Junior MD 06/20/2025 11:45 AM CDT Office Visit [facility] [address] [facility] [address] 6 [place] [address] Yulia Nolasco NP 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) 06/20/2025 11:15 AM CDT Lab [facility] - Lab Collection [address] [facility] [address] 6 [place] [address] 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) 06/20/2025 10:45 AM CDT Lab [facility] Lab [address] [facility] [address] 6 [place] [address] 06/20/2025 Telephone [facility] [address] [facility] 8th [place] [address] [place] [phone] Aliza Brown 06/19/2025 Telephone [facility] [address] [facility] 8th [place] [address] [place] [phone] Jonh Junior MD 06/17/2025 11:45 AM CDT Office Visit [facility] [address] [facility] Floor 1, [address] [place] [phone] Jonh Junior MD 06/17/2025 9:46 AM CDT - 06/17/2025 11:59 PM CDT Hospital Encounter [facility] P[facility] Lab [address] [facility] Floor 1, [address] [place] [phone] Ischemic cardiomyopathy; Essential hypertension; On amiodarone therapy Discharge Disposition: Discharge to home or self care 05/19/2025 Telephone [facility] [address] [place] [address] Alexandr Parham MD from Last 3 Months Immunizations Immunization Administration Dates Next Due COVID-19 mRNA (ANPI) 0.3 m L (30 mcg) vaccine (12 [...] Td, Unspecified 06/19/2016 Td, adsorbed 06/19/2016 Tdap 02/17/2025(Deferred: Contraindication),11/10/2012 ZOSTER LIVE 03/29/2019, 9,09/19/2013,11/12 ZOSTER Recombinant 03/29/2019,09/21/2018, [...] Packs/Day Years Used Date Smoking Tobacco: Never Passive Smoke Exposure: Past Smokeless Tobacco: Never Tobacco Cessation:Counseling Given: Not [...] making you feel afraid or unsafe? 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 Gender Identity Not on file Sexual [...] Sign Reading Time Taken Comments Blood Pressure 129/67 06/20/2025 12:01 PM CDT Pulse 78 06/20/2025 12:01 PM CDT Temperature 36.6 C (97.8 F) 06/20/2025 12:01 PM CDT Respiratory Rate 16 06/20/2025 12:01 PM CDT Oxygen Saturation 96% 06/20/2025 12:01 PM CDT Inhaled Oxygen Concentration - - Weight 52.9 kg (116 lb 9.6 oz) 06/20/2025 12:01 PM CDT Height 157.6 cm (5' 2.05) 06/20/2025 12:01 PM C DT Body Mass Index 21.29 06/20/2025 12:01 PM CDT Plan of Treatment Health Maintenance Due Date Last Done Comments Depression Screening 1935 Well Visit 65+ 2002 Osteoporosis Screening-Bone Density Scan 07/09/2024 07/09/2022, 02/29/2020, 10/08/2019, Additional history exists Covid-19 Vaccine (8 - 2024-2 6 season) 2025 06/10/2023, 06/19/2022, 12/18/2021, Additional history exists Influenza Vaccine (#1) 2025 3, 08/06/2022, 06/19/2021, Additional history exists Fall Risk Assessment 02/25/2026 02/25/2025 DTaP/Tdap/Td Vaccine (4 - Td or Tdap) 06/19/2026 06/19/2016, 06/19/2016, 11/10/2012 Pneumococcal vaccine 65+ Completed 015, 05/21/2009, 11/10/2008 Zoster Vaccine Completed 03/29/2019, 03/19, 09/21/2018, Additional history exists Hepatitis B Screening Completed 02/13/2021 , 01/30/2008, 01/30/2008, Additional history exists Procedures Procedure Name Priority Date/Time Associated Diagnosis Comments EGFR Routine 06/20/2025 11:29 AM CDT 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) DIFFERENTIAL AUTO Routine 06/20/2025 11: 29 AM CDT 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) CBC WITH AUTO DIFFERENTIAL Routine 06/20/2025 11:29 AM CDT 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 73 m2 Comment: Interpretive Data Reference Interval Normal >/= 90 mL/min/1.73m2 Mildly decreased* 60 - 89 mL/min/1.73m2 Mildly to moderately decreased 45 - 59 mL/min/1.73m2 Moderately to severely decreased 30 - 44 mL/min/1.73m2 Severely decreased 15 - 29 mL/min/1.73m2 Kidney Failure < 15 mL/min/1.73m2 *Relative to young adult level Estimated glomerular filtration rate is determined by the 2020 CKD-EPI equation recommended by the National Kidney Foundation (A Unifying Approach to GFR Estimation: Recommendations of the NKF-ASK Task Force on Reassessing the Inclusion of Race in Diagnosing Kidney Disease, JASN 2020). The CKD-EPI equation should not be used for patients with unstable renal function and has not been validated in children and those over 70. Current interpretive data was last reviewed 2021. Blood 06/20/2025 11:2 9 AM CDT 06/20/2025 11:37 AM CDT us Sheryl Latham MD LAB BLOOD ORDERABLES Final Re sult [facility] Department [place] [address] * (ABNORMAL) Differential, auto (06/20/2025 11:29 AM CDT) Pathologist [facility] Neutrophil abs 3.79 1.50 - 6.50 K/cumm Comment:Testing performed by : [facility], [address] [place] [phone] Lymphocyte abs 1.88 0.80 - 3.30 K/cumm BENJAMIN SETH Comment:Testing performed by : [facility], [address] [place] [phone] Monocyte abs 0.97(H) 0.20 - 0.80 K/cumm [facility] Comment:Testing performed by : [facility], [address] [place] [phone] Eosinophil abs 0.13 0.00 - 0.50 K/cumm [facility] Comment:Testing performed by : [facility], [address] [place] [phone] Basophil abs 0.05 0.00 - 0.10 K/cumm CERNER [facility] Comment:Testing performed by : [facility], [address] [place] [phone] Neutrophil pct 55.6 % CERNER [facility] Comment: Interpretive Data Percent cell count reference ranges are not reported, since discordance with absolute values may lead to misinterpretation of CBC data. Current Interpretive Data was last revised on 2017. Testing performed by: [facility], [address] [place] [phone] Lymphocyte pct 27.6 % CERNER [facility]J Comment: Interpretive Data Percent cell count reference ranges are not reported, since discordance with absolute values may lead to misinterpretation of CBC data. Current Interpretive Data was last revised on 2017. Testing performed by: [facility], [address] [place] [phone] Monocyte pct 14.2 % CERNER [facility] Comment: Interpretive Data Percent cell count reference ranges are not reported, since discordance with absolute values may lead to misinterpretation of CBC data. Current Interpretive Data was last revised on 2017. Testing performed by: [facility], [address] [place] [phone] Eosinophil pct 1.8 % C[facility]ER [facility] Comment: Interpretive Data Percent cell count reference ranges are not reported, since discordance with absolute values may lead to misinterpretation of CBC data. Current Interpretive Data was last revised on 2017. Testing performed by: [facility], [address] [place] [phone] Basophil pct 0.7 % [facility] Comment: Interpretive Data Percent cell count reference ranges are not reported, since discordance with absolute values may lead to misinterpretation of CBC data. Current Interpretive Data was last revised on 2017. Testing performed by: [facility], [address] [place] [phone] Blood 06/20/2025 11:2 9 AM CDT 06/20/2025 11:37 AM CDT us Sheryl Latham MD LAB BLOOD ORDERABLES Final Re sult [facility] Department [place] [address] * (ABNORMAL) CBC with auto differential (06/20/2025 11:29 AM CDT) WBC 6.81 3.80 - 9.90 K/cumm Comment:Testing performed by : [facility], [address] [place] [address] Hgb 8.4(L) 11.9 - 15.5 g/dL CERNER [facility] Comment:Testing performed by : [facility], [address] [place] [address] Hct 26.3(L) 35.6 - 45.5 % CERNER [facility] Comment:Testing performed by : [facility], [address] [place] [address] Plt 180 150 - 400 K/cumm CERNER [facility]J Comment:Testing performed by : [facility], [address] [place] [address] MPV 6.9 6.8 - 10.4 fL [facility]ER [facility] Comment:Testing performed by : [facility], [address] [place] [address] RBC 3.22(L) 3.90 - 5.20 M/cumm C[facility]ER [facility] Comment:Testing performed by : [facility], [address] [place] [address] MCV 81.5 81.3 - 96.4 fL [facility]ER [facility] Comment:Testing performed by : [facility], [address] [place] [phone] MCH 25.9(L) 27.1 - 33.3 pg [facility] Comment:Testing performed by : [facility], [address] [place], [place] [phone] MCHC 31.8(L) 32.3 - 35.7 g/dL [facility] Comment:Testing performed by : [facility], [address] [place], [place] [phone] RDW CV 15.3(H) 11.1 - 14.9 % [facility] Comment:Testing performed by : [facility], [address] [place] [address] NRBC abs 0.00 0.00 - 0.01 K/cumm [facility] Comment:Testing performed by : [facility], [address] [place], [place] [phone] Blood 06/20/2025 11:2 9 AM CDT 06/20/2025 11:37 AM CDT Sheryl Latham MD LAB BLOOD ORDERABLES Final Re sult Performing Organization Address City/[facility]/ZIP Co de Phone Number [facility] Department [place] [address] * Lactate dehydrogenase (LD) (06/20/2025 11:29 AM CDT) Pathologist [facility] Lactate dehydrogenase (LDH) 221 100 - 250 Units/L Blood 06/20/2025 11:2 9 AM CDT 06/20/2025 11:37 AM CDT Sheryl Latham MD LAB BLOOD ORDERABLES Final Re sult [facility] [place] [address] * (ABNORMAL) Comprehensive metabolic panel (06/20/2025 11:29 AM CDT) Pathologist [facility] Sodium 136 135 - 145 mmol/L Potassium, pl 4.8 3.3 - 4.9 mmol/L [facility] Chloride 102 97 - 110 mmol/L [facility] CO2 25 22 - 32 mmol/L [facility] Anion gap 9 2 - 15 mmol/L [facility] BUN 23 6 - 25 mg/dL [facility] Creatinine 1.16(H) 0.60 - 1.10 mg/dL [facility] Glucose 86 70 - 199 mg/dL [facility] Comment: Interpretive Data Fasting glucose >/= 126 mg/dl is diagnostic for diabetes. Fasting is defined as no caloric intake for at least 8 hours. Fasting glucose between 100 mg/dl to 125 mg/dl is diagnostic of prediabetes. In a patient with classic symptoms of hyperglycemia or hyperglycemic crisis, a random glucose >/= 200 mg/dl is diagnostic for diabetes. In the absence of unequivocal hyperglycemia, results should be confirmed by repeat testing. The classification and Diagnosis of Diabetes Diabetes Care 2021; 46: S19-S40. Current interpretive data was last revised 2022. Calcium 9.1 8.5 - 10.3 mg/dL [facility] Bilirubin, total 0.2 0.1 - 1.2 mg/dL [facility] Protein, pl 6.3(L) 6.5 - 8.5 g/dL [facility] Albumin 4.1 3.5 - 5.0 g/dL [facility] Alk phos 77 40 - 130 Units/L [facility] ALT 11 7 - 45 Units/L [facility] AST 20 10 - 45 Units/L [facility] Blood 06/20/2025 11:2 9 AM CDT 06/20/2025 11:37 AM CDT us Sheryl Latham MD LAB BLOOD ORDERABLES Final Re sult [facility] [place] [address] * Pulmonary Function Test - (06/17/2025 10:31 AM CDT) Pathologist [facility] FVC PRE 2.11 L [facility] FVC %PRE PRED 88 % [facility] FEV1 PRE 1.38 L [facility] FEV1 %PRE PRED 77 % [facility] FEV1/FVC PRE 65.3 % [facility] FRC PL PRE 2.72 L [facility] FRC PL %PRE PRED 94 % [facility] RV PRE 1.78 L [facility] RV %PRE PRED 70 % [facility] TLC PRE 3.91 L [facility] TLC %PRE PRED 78 % [facility] DLCO PRE 11.2 ml/min/mmH g [facility] DLCO %PRE PRED 63 % [facility] Anatomical Region Laterality Modality PFT 06/17/2025 9:53 AM CDT Narrative 06/20/2025 6:37 PM 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 The FEV1 to FVC ratio is normal. The inspiratory loop is normal. LUNG VOLUMES: TLC measured by plethysmography is decreased. There is an isolated decrease in RV of uncertain significance. DLCO: The diffusing capacity is mildly decreased. A decreased diffusing capacity may be due to loss of pulmonary capillary surface area. Causes include pulmonary fibrosis (altered V/Q relationship), pulmonary vascular disease, emphysema, or interstitial pneumonitis. Note that the value for diffusing capacity is not corrected for hemoglobin and that anemia may decrease the reported value. Impression: There is no significant ventilatory defect. There is a mild impairment of alveolar gas exchange by DLCO. Compared with most recent study, there has been no significant interval change. The attending pulmonary physician certifies a physician presence in the [facility] Suite during the administration of aerosolized bronchodilator. The attending pulmonary physician certifies that he/she has reviewed and interpreted the graphic and numerical data of this pulmonary function study and agrees with the written final report. The lower limit of normal for PaO2 and %HbO2 is age dependent. However, the [facility] Pulmonary Function Laboratory defines hypoxemia as a PaO2 <56 mm Hg or a %HbO2 <89%. Starting on September of 2024 the [facility] Pulmonary Function Laboratory utilizes race neutral GLI Global normative equations. Jonh Junior MD PFT ORDERABLES Final Result * BONE MINERAL DENSITY (04/05/2017) Anatomical Region Laterality Modality Radiographic Christi ging Narrative 04/05/2017 Ordered by an unspecified provider. Historical Provider IMG DXA PROCEDURES Final Result from Last 3 Months or Most Recently Relevant to Health Maintenance Insurance MEDICARE [facility] MEDICARE [facility] FEDERAL ANTHEM ACCESS CHOICE ANTHEM ACCESS MEDICARE [facility] Advance Directives For more information, please contact: [phone] * Full Code (Latest Code Status on File) Date Activated Date Inactivated Comments 02/17/2025 8:18 PM 02/25/2025 6:56 PM * Full Code Date Activated Date Inactivated Comments 06/20/2024 11:44 AM 06/20/2024 5:41 PM * Full Code Date Activated Date Inactivated Comments 01/05/2023 11:29 PM 01/11/2023 8:13 PM * Full Code Date Activated Date Inactivated Comments 05/06/2021 12:58 PM 05/11/2021 10:39 PM * Full Code Date Activated Date Inactivated Comments 03/21/2021 4:54 AM 03/24/2021 6:20 PM Care Teams Chronic Specialist Relationship Specialty Start Date End Date Ashlee Doyle MD [address] [place] [address] PCP - General Internal Medicine 09/05/23 Miscellaneous, Not In File 03/24/21 Sheryl Latham MD Medical Oncologist/Actuarial Clerk Medical Oncology 05/12/21 Jonh Junior MD [address] [place] [address] Referring Physician Cardiology 09/05/23
--- OUTSIDE RECORDS SUMMARY | 2025-08-12 14:42 | XMS_ITS ---
Author Organization [facility] Address [address] [place] [address] Care Team Providers Care Engineer First Assistant Name Role Phone Miscellaneous, Not In File Unavailable Unava ilable Sheryl Latham MD Unavailable [phone] Ashlee Doyle MD Primary Care Provider [phone] Jonh Junior MD Unavailable Active Problems Problem Noted Date Diagnosed Date Pulmonary edema 02/21/2025 Assessment & Plan (02/25/2025 11:54 AM CDT): - 2L NC on admission, - 02/20 Desatted to 80s with SOB and tachy to 110s, placed on 6L with sats in mid 90s, CT chest PE neg, CXR shows worsening pulm edema/bilateral effusions, lasix 20 IV given - 02/21 CXR reviewed, lasix 20mg IV given, on [...] ready for that. 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 Asked patient to bring notes or forward prior to next visit. Follows with Dr. Izaguirre at [facility]. 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 Current Treatment and Therapy [...] 10.6 mGy 10.6 mGy 0 mGy DLP 4,760 mGycm 4,760 mGycm 0 mGycm
--- OUTSIDE RECORDS SUMMARY | 2025-08-12 14:43 | XMS_ITS | Data Portability ---
Author Organization [facility], [employer] Address [address] [address] Care Team Providers Care Pulp Grinder Name Role Phone ASHLEE DOYLE Primary Care Provider [phone] Assessment Encounter Date Assessment Date Assessment LastModified by Organization Details LastModified Time 04/18/2024 04/18/2024 Patient presente d for follow up. Studies ordered as below. Discussed plan with patient/caregiver , who expressed understanding. Follow up as noted [...] care goals and ways to prevent future hospitalizations. Emphasized preventive health measures and educated patient to help reduce health risks and promote healthy living. Scheduled follow-up appointment for to review health status and care plan and instructed patient whom to contact in case of emergency. Further treatment per orders below. mshenouda Not available 04/18/2024 12:19:01 10/08/2024 10/08/2024 Patient presente d for follow up. Studies ordered as below. Discussed plan with patient/caregiver , who expressed understanding. Follow up as noted below. Not available 10/08/2024 11:35:10 04/02/2025 04/02/2025 Patient presente d for follow up. Studies ordered as below. Discussed plan with patient/caregiver , who expressed understanding. Follow up as noted below. Patient presented to office today for their Medicare Annual Wellness Visit. Education was provided on healthy nutrition, including a diet rich in fruits and vegetables, minimizing simple carbohydrates, salt, and saturated fats. Encouraged regular cardiovascular exercise such as walking at least 30 minutes daily, 5 times per week. Emphasized preventive health measures and educated pt on fall prevention and community-based lifestyle interventions to help reduce health risks and promote healthy living. mshenouda Not available 04/02/2025 12:41:26 07/09/2025 07/09/2025 Patient presente d to office today for their Medicare Annual Wellness Visit. Education was provided on healthy nutrition, including a diet rich in fruits and vegetables, minimizing simple carbohydrates, salt, and saturated fats. Encouraged regular cardiovascular exercise such as walking at least 30 minutes daily, 5 times per week. Emphasized preventive health measures and educated pt on fall prevention and community-based lifestyle interventions to help reduce health risks and promote healthy living. Not available 07/09/2025 11:38:59 Plan of Treatment Reminders Order Date Submit Date Provider Last Modified By Organization Details Last Modified Time Details Appointments US CAROTID ARTERY 2024 09:30A M US CAROTID ARTERY Not available Not available Not available RANGEL 2024 10:00A M US CAROTID ARTERY Not available Not available Not available ESTABLISH ED PATIENT 15 2025 10:30A M Ashlee Doyle MD Not available Not available Not available Lab lipid panel w/ direct LDL, serum 2024 025 [facility], [address] [place], [address], 07/23/2025 05:34:31 CMP, serum or plasma 2024 025 [facility], [address] [place], [address], 07/23/2025 05:34:31 CBC w/ auto diff 2024 025 [facility], [address] [place], [address], 07/23/2025 05:34:31 iron panel, serum or plasma 2024 025 [facility], [address] [place], [address], 07/21/2025 17:43:33 vitamin B12 + folate, serum or blood 2024 [facility], [address] [place], [address], 07/21/2025 17:43:33 pro BNP (pro B-type natriuret ic peptide), serum or plasma 2024 [facility], [address] [place], [address], 07/21/2025 17:43:32 HbA1c (hemoglob in A1c), blood 2024 [facility], [address] [place], [address], 04/16/2025 17:51:03 C-peptide , serum 2024 025 [facility], [address] [place], [address], 04/17/2025 11:48:45 magnesium , QN, serum or plasma 2024 025 [facility], [address] [place], [address], 07/23/2025 13:25:56 TSH, serum or plasma 2024 025 [facility], [address] [place], [address], 04/16/2025 17:51:03 pro BNP (pro B-type natriuret ic peptide), serum or plasma 2024 025 [facility], [address] [place], [address], 04/02/2025 12:40:39 CMP, serum or plasma 2024 025 [facility], [address] [place], [address], 04/16/2025 17:51:03 CBC w/ auto diff 2024 025 [facility], [address] [place], [address], 07/23/2025 13:25:56 iron panel, serum or plasma 2024 025 [facility], [address] [place], [address], 04/16/2025 17:51:03 urinalysi s, dipstick 2024 025 [facility] [facility], [facility], [address] [place] [address] [address] [address], [place], [address], 04/02/2025 13:25:36 vitamin B12 + folate, serum or blood 2024 025 [facility], [address] [place], [address], 04/16/2025 17:51:03 vitamin B12 + folate, serum or blood 2024 025 [facility], [address] [place], [address], 10/23/2024 14:39:51 magnesium , QN, serum or plasma 2024 025 [email or web address] [facility], [address] [place], [address], 12/31/2024 15:32:57 CMP, serum or plasma 2024 025 [facility], [address] [place], [address], 10/23/2024 14:39:51 CBC w/ auto diff 2024 025 [facility], [address] [place], [address], 10/23/2024 20:59:59 hemoglobi n A1c, QN, blood 2024 025 [facility], [address] [place], [address], 10/23/2024 20:59:59 lipid panel w/ direct LDL, serum 2024 025 [facility], [address] [place], [address], 10/23/2024 14:39:51 TSH, serum or plasma [address] Out[facility], [address] [place], [address], 12/31/2024 15:32:57 pro BNP (pro B-type natriuret ic peptide), serum or plasma 2024 025 [facility], [address] [place], [address], 10/23/2024 20:59:59 iron panel, serum or plasma 2024 025 [facility], [address] [place], [address], 10/23/2024 20:59:59 CMP, serum or plasma 2023 024 [facility], [address] [place], [address], 06/25/2024 04:09:57 magnesium , QN, serum or plasma 2023 024 [facility], [address] [place], [address], 06/25/2024 04:09:57 CBC w/ auto diff - 8 weeks from 04/17/242023 024 [facility], [address] [place], [address], 05/16/2024 14:00:39 iron panel, serum or plasma - 8 weeks from 04/17/242023 024 [facility], [address] [place], [address], 04/25/2024 04:05:03 Referral pain managemen t referral [address] Hipolito Palm MD, [address] [facility], [place], [address], 04/02/2025 16:31:16 Procedures None recorded. Surgeries None recorded. Imaging XR, cervical spine, 2 or 3 view 2024 025 [facility]), [address] [place], [address], 07/19/2025 12:24:31 US, duplex, carotid artery 2024 025 [facility] [facility] [facility], [facility], [address], [place], [address], 07/09/2025 17:47:54 MAMMO, screening , digital, bilateral 2024 025 [facility] ([facility]), [address] [place], [address], 04/27/2025 18:51:03 electroca rdiogram 2024 025 [facility], [facility], [address], [place], [address], 04/02/2025 13:16:02 US, duplex, carotid artery 2024 025 [facility], [facility], [address] [facility] [address], [place], [address], 04/02/2025 14:12:06 CT, chest + abdomen + pelvis, w/o contrast 2024 025 [facility] ([facility]), [address] [place], [address], 10/23/2024 16:36:21 XR, chest, 2 view 2024 025 [facility] ([facility]), [address] [place], [address], 10/23/2024 16:48:57 XR, chest, 2 view - 6 weeks from 04/07/242023 024 [facility] ([facility]), [address] [place], [address], 05/16/2024 13:44:01 Medication Orders polysacch aride iron complex 150 mg iron capsule [address] [facility] [address], [address], 07/09/2025 12:37:22 cyanocoba reggie (vit B-12) 1,000 mcg sublingua l tablet [address] [facility] [address], [address], 07/09/2025 12:37:22 acetamino phen 500 mg tablet [address] [facility] [address], [address], 04/02/2025 12:38:39 Tylenol Extra Strength 500 mg tablet 2024 025 [facility] [address], [address], 04/02/2025 12:38:39 Aspercrem e (lidocain e HCl) 4 % topical 2024 025 [facility] [address], [address], 07/09/2025 12:26:45 Creon 24,000-76 ,000-120, 000 unit capsule,d elayed release 2024 025 [facility] [address], [address], 11/07/2024 13:12:54 Eliquis 2.5 mg tablet 2024 025 [facility] [address], [address], 10/08/2024 12:13:09 triamcino lone acetonide 0.1 % topical cream 2023 024 [facility] [address], [address], 06/18/2024 12:41:20 Eliquis 2.5 mg tablet 2023 024 [facility] [address], [address], 06/18/2024 12:41:17 fluconazo le 100 mg tablet 2023 024 [facility] [address], [address], 06/14/2024 18:22:20 ferrous sulfate 300 mg (60 mg iron)/5 mL oral liquid 2023 024 [facility] [address], [address], 06/14/2024 18:22:14 Patient TargetsNo targets recorded. Patient Instructions Encounter Date Encounter Id Patient Instructions Last Modified By Organization Details Last Modified Time 04/18/2024 [id number] pneumonia: care instructions mshenouda Not available 04/18/2024 12:31:54 vaginal yeast infection: care instructions mshenouda Not available 04/18/2024 12:31:54 iron deficiency anemia: care instructions mshenouda Not available 04/18/2024 12:31:54 heart failure: care instructions mshenouda Not available 04/18/2024 12:31:54 learning about heart failure mshenouda Not available 04/18/2024 12:31:54 06/18/2024 [id number] learning about swallowing problems mshenouda Not available 06/18/2024 12:41:18 mammogram: about this test mshenouda Not available 06/18/2024 12:41:18 heart failure: care instructions mshenouda Not available 06/18/2024 12:41:18 learning about heart failure mshenouda Not available 06/18/2024 12:41:18 10/08/2024 [id number] mammogram: about this test mshenouda Not available 10/08/2024 12:13:06 high cholesterol : care instructions mshenouda Not available 10/08/2024 12:13:06 carotid stenosis : care instructions mshenouda Not available 10/08/2024 12:13:05 iron deficiency anemia: care instructions mshenouda Not available 10/08/2024 12:13:06 04/02/2025 [id number] learning about swallowing problems mshenouda Not available 04/02/2025 12:38:36 Peripheral Arterial Disease (PAD): Care Instructions mshenouda Not available 04/02/2025 12:38:36 (RANGEL) ankle brachial index* MIGUE Not available 04/02/2025 14:11:59 arthritis: care instructions mshenouda Not available 04/02/2025 12:38:35 mammogram: about this test mshenouda Not available 04/02/2025 12:38:36 insomnia: care instructions mshenouda Not available 04/02/2025 12:38:35 back care and preventing injuries: care instructions mshenouda Not available 04/02/2025 12:38:36 getting back to normal after low back pain: care instructions mshenouda Not available 04/02/2025 12:38:35 learning about relief for back pain mshenouda Not available 04/02/2025 12:38:36 seasonal allergies: care instructions mshenouda Not available 04/02/2025 12:38:36 heart failure: care instructions mshenouda Not available 04/02/2025 12:38:35 learning about heart failure mshenouda Not available 04/02/2025 12:38:35 transient ischemic attack: care instructions mshenouda Not available 04/02/2025 12:38:36 medicare preventive services guide mshenouda Not available 04/02/2025 12:41:32 advance care planning: care instructions mshenouda Not available 04/02/2025 12:41:32 anemia: care instructions mshenouda Not available 04/02/2025 12:38:35 learning about healthy weight mshenouda Not available 04/02/2025 12:38:36 bladder training : care instructions mshenouda Not available 04/02/2025 12:38:35 kegel exercises: care instructions mshenouda Not available 04/02/2025 12:38:36 Stress Incontinence: Care Instructions mshenouda Not available 04/02/2025 12:38:35 Urge Incontinence: Care Instructions mshenouda Not available 04/02/2025 12:38:35 carotid stenosis : care instructions mshenouda Not available 04/02/2025 12:38:36 age-related macular degeneration: care instructions mshenouda Not available 04/02/2025 12:38:36 living will Discussed and explained advance directives such as standard forms to the patient. Face to face discussion lasted for a duration of _2__ minutes. mshenouda Not available 04/02/2025 12:41:49 07/09/2025 [id number] Peripheral Arterial Disease (PAD): Care Instructions mshenouda Not available 07/09/2025 12:37:17 (RANGEL) ankle brachial index* MIGUE Not available 07/09/2025 17:47:49 mammogram: about this test mshenouda Not available 07/09/2025 12:37:17 neck pain: care instructions mshenouda Not available 07/09/2025 12:37:17 learning about healthy weight mshenouda Not available 07/09/2025 12:37:17 anemia: care [facility] Not available 07/09/2025 12:37:17 carotid stenosis : care instructions [facility] Not available 07/09/2025 12:37:17 heart failure: care instructions [facility] Not available 07/09/2025 12:37:16 learning about heart failure [facility] Not available 07/09/2025 12:37:17 Reason for Referral Pain Management Referral for Low back pain Referring Physician: Ashlee Doyle, Internal Medicine, Encounter Date: 04/02/2025 Results Created Date Observation Date Name Description Value Unit Range Abnormal Flag Note LastModifiedBy Organization Detail LastModifiedTime 04/03/20 24 04/02/2024 XR, chest , 2 view No observ ation record ed. [address], [address], 04/18/2024 12:11:50 04/05/20 24 04/05/2024 XR, chest , 2 view No observ ation record ed. [address] [address], [place], [address], 04/18/2024 12:11:49 05/16/20 24 05/16/2024 XR, chest , 2 view No observ ation record ed. [facility] [address] [place], [address], 06/18/2024 12:28:47 10/23/19 25 10/23/2024 XR, chest , 2 view No observ ation record ed. [facility] [address] [place], [address], 04/02/2025 12:24:33 10/23/19 25 10/23/2024 CT, chest + abdom en + pelvi s, w/o contr ast No observ ation record ed. [facility] [address] [place], [address], 04/02/2025 12:24:33 11/27/19 25 11/26/2024 US, liver No observ ation record ed. [facility] [address] [place], [address], 04/02/2025 12:24:33 01/16/20 25 01/15/2025 XR, hip, bilat eral No observ ation record ed. [facility] [address], [place], [address], 04/02/2025 12:24:33 02/18/20 25 02/16/2025 XR, chest , 2 view No observ ation record ed. [facility] ([facility]) [address] [place], [address], 04/02/2025 12:24:33 04/02/20 25 04/02/2025 elect rocar diogr am No observ ation record ed. [place] [address], [place], [address], 07/09/2025 12:35:19 04/02/20 25 04/02/2025 US, duple x, carot id arter y No observ ation record ed. [facility], [address] [place] [address], [place], [address], 07/09/2025 12:35:19 04/02/20 25 04/02/2025 elect rocar diogr am No observ ation record ed. [facility], [place] [address], [place], [address], 07/09/2025 12:35:19 04/27/20 25 04/16/2025 MAMMO , scree aniya, digit al, bilat eral No observ ation record ed. [facility] [address] [place], [address], 07/09/2025 12:35:18 07/09/20 25 07/09/2025 US, duple x, carot id arter y No observ ation record ed. [facility] [employer], [place] [address], [place], [address], 07/09/2025 17:47:54 07/19/20 25 07/19/2025 XR, cervi clay spine , 2 or 3 view No observ ation record ed. [facility] [address] [place], [address], 07/23/2025 13:26:58 Result Notes None recorded. 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 Not Available [employer] 3 14:49:31 Transient cerebral ischemia 820144450 Active 2016 Not Available [facility] 3 14:49:31 Allergic rhinitis 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 62834143 Active 2016 Not Available [facility] 3 14:49:31 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 834594097 Active 2016 Not Available [facility] 3 14:49:31 Carotid artery stenosis 79541350 Active 2016 Not Available [facility] 3 14:49:31 Focal onset epileptic seizure 73179215 Active 2017 Not Available [facility] 3 14:49:31 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 107975890 Active 2017 Not Available [facility] 3 14:49:31 History of Malignant melanoma 440886786 Active 2018 Not Available [facility] 3 14:49:31 Gastroeso phageal reflux disease without esophagit is 972820393 Active 2018 Not Available [facility] 3 14:49:31 Ophthalmi c migraine 62702883 Active 2018 on ophth note 07/24/19 Not Available [facility] 3 14:49:31 Open-angl e glaucoma of left eye 252513431 Active 2018 on ophth note 07/24/19 Not Available [facility] 3 14:49:31 Idiopathi c periphera l neuropath y 73420042 Active 2019 Not Available [facility] 3 14:49:31 Family history of diabetes mellitus 482949883 Active 2019 Not Available [facility] 3 14:49:31 Neoplasm of supraclav icular region 826135391 Active 2020 Not Available [facility] 3 14:49:31 Hyponatre kasandra 52864325 Active 2020 Not Available [facility] 3 14:49:31 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, face AND/OR neck 27810330 Active 2020 Not Available [facility] 3 14:49:31 Coronary arteriosc lerosis 09959326 Active 2020 non occlusive per cardiolog y note 06/11/21 Not Available [facility] 3 14:49:31 Paroxysma l atrial fibrillat ion 951407822 Active 2020 [facility] Available [facility] 14:49:31 Diffuse high grade B-cell lymphoma 540079350 Active 2020 Not Available [facility] 3 14:49:31 Macrocyto sis 328124377 Active 2020 [facility] Available [facility] 3 14:49:31 History of SARS-CoV- 2 62982644873 2501947 Active 2021 Not Available [facility] 3 14:49:31 Long-term drug therapy Active 2021 Not Available [facility] 3 14:49:31 Increased frequency of urination 516003675 Active 2021 Not Available [facility] 3 14:49:31 Vitamin B deficienc y 70024401 Active 2022 Not Available [facility] 3 14:49:31 Mixed urinary incontine nce 859055294 Active 2022 Not Available [facility] 3 14:49:31 Hypomagne semia 700711516 Active 2022 Not Available [facility] 3 14:49:31 Mixed hyperlipi demia 080512299 Active 2022 Not Available [facility] 3 14:49:31 Insomnia 156981722 Active 2022 Not Available [facility] 3 14:49:31 Periphera l vascular disease 385302088 Active 2022 MD Aurelia Galeano[address], [place], [address] , [facility] 3 11:47:35 Anemia 336264948 Active 2023 MD Kane Galeano [address], [place], [address] , [facility] 4 22:05:29 Body mass index less than 20 051114696 Active 2023 MD Kane Galeano [address], [place], [address] , [facility] 4 11:56:56 Dysphagia 47977913 Active 2023 MD Kane Galeano [address], [place], [address] , [facility] 4 14:14:25 Mild memory disturban ce 095919334 Active 2023 MD Kane Galeano [address], [place], [address] , [facility] 4 13:46:21 Congestiv e heart failure 22095643 Active 2023 MD Kane Galeano [address], [place], [address] , [facility] 4 12:20:10 Iron deficienc y anemia 85310297 Active 2023 MD Kane Galeano [address], [place], [address] , [facility] 4 12:22:31 Left bundle branch block 65201017 Active 2023 MD Kane Galeano [address], [place], [address] , [facility] 4 12:26:56 Stasis dermatiti s 36029778 Active 2023 MD Kane Galeano [address], [place], [address] , [facility] 4 12:34:37 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 MD Kane Galeano [address], [place], [address] , [facility] 4 17:34:02 CT of abdomen abnormal 22390851051 973430 Active 2024 MD Kane Galeano [address], [place], [address] , [facility] 5 20:40:35 Prediabet es 408461343 Active 2024 Dxed by A1c 6.2% on 10/23/24 MD Kane Galeano [facility] [address], [place], [address] , [facility] 5 21:01:29 Primary insomnia 7270652 Active 2024 MD Kane Galeano [facility] [address], [place], [address] , [facility] 5 18:49:04 Problem Notes None recorded. Procedures Surgical History Date Name Laterality Status Provider Name and Address Organization Details Recorded Time Partial Hysterectomy completed MD Kane Galeano [facility] [address], [place], [address], [facility] 05/10/2017 15:03:45 Imaging Results None recorded. Procedure Notes None recorded. Medical Equipment None Reported. Allergies Allergen ID Allergen Name Allergen Category Reaction Reaction Severity Criticality Documentation Date Start Date Code Code System Note Provider Name and Address Organization Details Recorded Time 61206 solifenac in medicatio n dry mouth Not available Not available 10/12/2022 62452 7 RxNorm Not Available [facility] 3 14:49:32 89311 sulfur dioxide medicatio n facial swelling Not available Not available 01/11/2025 00613 79 RxNorm Not Available [facility] - External Data Service - prod 5 10:56:21 5921 Substance with sulfonami de structure and antibacte rial mechanism of action (substanc e) medicatio n other Not available Not available 05/10/2017 12039 8003 SNOMED swell ing MD Kane Galeano [facility] [address], [place], [address], [facility] 7 15:03:33 Medications Name Sig Start Date Stop Date Status Note LastModified by Organization Details LastModified Time antacid/dip hen/lido 111 mouthwas SWISH AND SWALLOW 10 ML BY MOUTH EVERY 4 HOURS NEEDED FOR THROAT SORENESS 01/28 completed Not Available Not Available Not Available Prescriptio n - Change 10/03 completed Not Available Not Available Not Available losartan 50 mg tablet Take 1 tablet every day by oral route. 04/14 completed Not Available Not Available Not Available amoxicillin 500 mg capsule 05/10 completed Not Available Not Available Not Available latanoprost 0.005 % eye drops 03/05 completed Not Available Not Available Not Available fluconazole 100 mg tablet TAKE 1 TABLET BY MOUTH EVERY DAY 06/14 completed Not Available Not Available Not Available clotrimazol e 10 mg lindsey TAKE 1 TABLET BY MOUTH 4 TIMES A DAY FOR 14 DAYS 07/09 completed Not Available Not Available Not Available nystatin 100,000 unit/mL oral suspension Take 5 mL 4 times a day by oral route. 10/08 completed Not Available Not Available Not Available prednisone 10 mg tablet TAKE 1 TABLET BY MOUTH TWICE DAILY FOR 10 DAYS 07/09 completed Not Available Not Available Not Available doxycycline hyclate 100 mg capsule Take 1 capsule twice a day by oral route. 07/09 completed Not Available Not Available Not [...] completed Not Available Not Available Not Available trazodone 50 mg tablet Take 1 tablet every day by oral route at bedtime. 08/07 completed Not Available Not Available Not Available azithromyci n 250 mg tablet TAKE 2 TABLETS BY MOUTH TODAY, THEN TAKE 1 TABLET DAILY FOR 4 DAYS DIRECTED 07/09 completed Not Available Not Available Not [...] michelle iron complex 150 mg iron capsule Take 1 capsule every day by oral route. 2024 active Not Available Not Available Not Avai lable famotidine 40 mg tablet TAKE 1/2 TABLET TWICE A DAY(NEW DOSE) 01/12 completed Not Available Not Available Not Available prednisone 20 mg tablet TAKE 2 TABLETS BY MOUTH DAILY 07/09 completed Not Available Not Available Not Available cyanocobala min (vit B-12) 1,000 mcg tablet TAKE 1 TABLET BY MOUTH EVERY DAY 10/08 completed Not Available Not Available Not Available meclizine 12.5 mg tablet TAKE 1 TABLET 3 TIMES A DAY BY ORAL ROUTE NEEDED. 07/09 completed Not Available Not Available Not Available amlodipine 2.5 mg tablet TAKE 1 [...] en 500 mg tablet TAKE 1 TABLET EVERY 8 HOURS BY ORAL ROUTE AROUND THE CLOCK. active Not Available Not Available No t [...] yed release TAKE 1 TABLET BY MOUTH DAILY BEFORE BREAKFAST active Not Available Not Available No t Available Cipro 500 mg tablet Take 1 tablet every 12 hours by oral route. 08/24 completed Not Available Not Available Not Available ranitidine 150 mg tablet TAKE ONE TABLET BY MOUTH ONCE DAILY active Not Available Not Available No t Available ferrous sulfate 300 mg (60 mg iron)/5 mL oral liquid Take 5 mL 3 times a day by oral route. 06/14 completed Not Available Not Available Not Available lansoprazol e 30 mg capsule,del ayed release 05/10 completed Not Available Not Available Not Available prednisone 50 mg tablet 06/23 completed Not Available Not Available Not Available losartan 25 mg tablet TAKE 0.5 TABLETS EVERY DAY BY MOUTH IN THE MORNING. 11/22 completed Not Available Not Available Not Available omeprazole 20 mg capsule,del ayed release TAKE 1 CAPSULE BY MOUTH EVERY DAY IN THE MORNING active Not Available Not Available No t Available irbesartan 75 mg tablet TAKE 1/2 TABLET DAILY. NEW DOSE 06/23 completed Not Available Not Available Not Available cyanocobala min (vit B-12) 1,[address] 1 tablet every day by sublingua l route. 2024 active Not Available Not Available Not Avai lable mupirocin 2 % topical ointment APPLY A SMALL AMOUNT TO AFFECTED AREA 3 TIMES A DAY 11/22 completed Not Available Not Available Not Available telmisartan 20 mg tablet TAKE 1 TABLET BY MOUTH EVERY DAY 07/09 completed Not Available Not Available Not Available furosemide 20 mg tablet TAKE 1 TABLET BY [...] TO VAGINA FOR 1 WEEK, THEN TUESDAY// 07/09 completed Not Available Not Available Not Available levofloxaci n 750 mg tablet 06/23 [...] 1 DROP INTO BOTH EYES TWICE DAILY 07/09 completed Not Available Not Available Not Available clobetasol 0.05 % scalp solution 02/28 [...] SPRAYS INTO EACH NOSTRIL TWICE A DAY 07/09 completed Not Available Not Available Not Available amoxicillin 875 mg-potassiu m clavulanate 125 mg tablet TAKE 1 TABLET BY MOUTH EVERY 12 HOURS 08/24 completed Not Available Not Available Not Available tobramycin 0.3 %-dexametha sone 0.1 % eye drops,suspe nsion 01/28 completed Not Available Not Available Not Available oxycodone 5 mg tablet TAKE 1 TABLET BY MOUTH EVERY 8 HOURS NEEDED FOR PAIN 07/09 completed Not Available Not Available Not Available melatonin ER 3 mg tablet,exte nded release Take 1 tablet every day by oral route at bedtime. 07/09 completed Not Available Not Available Not Available Vitamin D3 25 mcg (1,000 unit) capsule Take 1 capsule every day by oral route. 07/03 completed Not Available Not Available Not Available moxifloxaci n 0.5 % eye drops INSTILL ONE DROP INTO EACH EYE FOUR TIMES DAILY FOR 7-10 DAYS 07/09 completed Not Available Not Available Not [...] tablet every 12 hours by oral route. 07/09 completed Not Available Not Available Not [...] BY TOPICAL ROUTE 4 TIMES PER DAY 07/09 completed Not Available Not Available Not Available Creon 24,000-76,0 00-120,000 unit capsule,del ayed release TAKE 1 CAPSULE BY MOUTH THREE TIMES A DAY BEFORE MEALS 2024 active Not Available Not Available Not Avai lable Lumigan 0.01 % eye drops 10/03 completed Not Available Not Available Not Available vilazodone 10 mg tablet 1 tab Po QHS 2024 active Not Available Not Available Not Avai lable Myrbetriq 25 mg tablet,exte nded release Take 1 tablet every day by oral route. 04/14 completed Not Available Not Available Not Available Eliquis 5 mg tablet Take 1 tablet twice a day by oral route. 06/23 completed Not Available Not Available Not Available Eliquis 2.5 mg tablet TAKE 1 TABLET BY MOUTH TWICE A DAY active Not Available Not Available No t Available sacubitril 24 mg-valsarta n 26 mg tablet TAKE 1 TABLET TWICE A DAY. DISCONTIN UE TELMISART AN active Not Available Not Available No t Available Aspercreme (lidocaine HCl) 4 % topical Apply 1 applicati on twice a day by topical route. 07/09 completed Not Available Not Available Not Available ferrous sulfate 220 mg (44 mg iron)/5 mL oral elixir TAKE 6.8 ML (300MG) BY MOUTH 2 TIMES A DAY 05/14 completed Not Available Not Available Not Available Fluzone High-Dose 7939-8002 (PF) 180 mcg/0.5 mL intramuscul ar syringe [...] Not Available No t Available Fluzone High-Dose 1692-9156 (PF) 180 mcg/0.5 mL intramuscul ar syringe [...] Body temperature Respiratory rate Heart rate Systolic And Diastolic Provider Name and Address Organization Details Last Updated DateTime 5 167.64 cm 18.9 kg/m2 92240.3 1 g 97.6 [degF] 18 /min 71 /min 101/53 mm[Hg] Migdalia [facility] 5 11:38:34 Date Recorded Body height Body mass index (BMI) Body weight Heart rate Respiratory rate Body temperature Systolic And Diastolic Provider Name and Address Organization Details Last Updated DateTime 5 167.64 cm 17.9 kg/m2 70861.7 5 g 76 /min 18 /min 98.7 [degF] 115/52 mm[Hg] [facility] 11:49:59 Date Recorded Body height Body temperature Body mass index (BMI) Body weight Respiratory rate Heart rate Systolic And Diastolic Provider Name and Address Organization Details Last Updated DateTime 4 167.64 cm 97.5 [degF] 19 kg/m2 07124.9 g 18 /min 69 /min 124/65 mm[Hg] Migdalia Peraza [facility] 4 11:49:45 Date Recorded Body height Body temperature Respiratory rate Body mass index (BMI) Body weight Heart rate Systolic And Diastolic Provider Name and Address Organization Details Last Updated DateTime 4 167.64 cm 97.5 [degF] 18 /min 19.4 kg/m2 60726.0 8 g 67 /min 108/59 mm[Hg] Migdalia [facility] 4 12:03:26 Date Recorded Body height Body temperature Body mass index (BMI) Body weight Respiratory rate Heart rate Systolic And Diastolic Provider Name and Address Organization Details Last Updated DateTime 5 167.64 cm 98.7 [degF] 18.2 kg/m2 65523.9 4 g 18 /min 80 /min 128/52 mm[Hg] Migdalia [facility] 5 11:48:39 Social History Question Answer Notes LastModified by Organizat ion Details LastModified Time Tobacco Smoking Status Never Smoker Ahslee Doyle MD [address], [place], [address], [facility] 05/10/2017 15:11:55 What Is Your Level Of [...] 05/10/2017 Are you able to care for yourself independently? Yes Information not available 05/10/2017 What is [...] Influenza, split virus, quadrivalent, preservative 8 completed MD Kane Galeano [address], [place], [address], [facility] 06/12/2023 16:15:07 zoster recombinant 9 MD Kane Juilan [address], [place], [address], [facility] 06/12/2023 16:15:07 zoster live 9 MD Kane Julian [address], [place], [address], [facility] 06/12/2023 16:15:08 zoster live 9 MD Kane Julian [address], [place], [address], [facility] 06/12/2023 16:15:08 Influenza, split virus, quadrivalent, preservative 9 completed MD Kane Galeano [address], [place], [address], [facility] 06/12/2023 16:15:07 Influenza, split virus, quadrivalent, preservative 0 completed MD Kane Galeano [address], [place], [address], [facility] 06/12/2023 16:15:07 SARS-COV-2 (COVID-19) vaccine, UNSPECIFIED 1 completed MD Kane Galeano [address], [place], [address], [facility] 06/12/2023 16:15:07 COVID-19, mRNA, LNP-S, PF, 30 mcg/0.3 mL dose 1 completed MD Kane Galeano [address], [place], [address], [facility] 06/12/2023 16:15:07 Influenza, split virus, quadrivalent, preservative 1 completed MD Kane Galeano [address], [place], [address], [facility] 06/12/2023 16:15:07 COVID-19, mRNA, LNP-S, PF, 30 mcg/0.3 mL dose 2 completed MD Kane Galeano [address], [place], [address], [facility] 06/12/2023 16:15:07 Influenza, high-dose, quadrivalent, PF 2 completed MD Kane Galeano [address], [place], [address], [facility] 06/12/2023 16:15:07 Influenza, MDCK, quadrivalent, PF 3 completed MD Kane Galeano [address], [place], [address], [facility] 06/12/2023 16:15:07 RSV, recombinant, protein subunit RSVpreF, adjuvant reconstituted, 0.5 mL, PF 3 completed MD Kane Galeano [address], [place], [address], [facility] 06/12/2023 16:15:07 COVID-19, mRNA, LNP-S, PF, nicole-sucrose, 30 mcg/0.3 mL 3 completed MD Kane Galeano [address], [place], [address], [facility] 06/12/2023 16:15:07 COVID-19, mRNA, LNP-S, PF, nicole-sucrose, 30 mcg/0.3 mL 4 completed MD Kane Galeano [address], [place], [address], [facility] 06/01/2024 14:33:16 COVID-19, mRNA, LNP-S, PF, nicole-sucrose, 30 mcg/0.3 mL 4 completed MD Kane Galeano [address], [place], [address], [facility] 06/01/2024 14:33:16 Influenza, high-dose, trivalent, PF 4 completed MD Kane Galeano [address], [place], [address], [facility] 06/01/2024 14:33:16 COVID-19, mRNA, LNP-S, PF, nicole-sucrose, 30 mcg/0.3 mL 5 completed MD Kane Galeano [address], [place], [address], [facility] 12/26/2024 19:01:03 COVID-19, mRNA, LNP-S, bivalent, PF, 10 mcg/0.2 mL 5 completed Roxana moy [facility] 06/27/2025 14:45:22 influenza, unspecified formulation 5 completed Roxana moy, [facility] 06/27/2025 14:46:36 Pneumococcal conjugate PCV20, polysaccharide [id number] conjugate, adjuvant, PF 5 completed Lashon Gagnon null, [facility] 08/03/2025 19:14:26 Td(adult) unspecified formulation 6 completed MD Kane Galeano [address], [place], [address], [facility] 06/12/2023 16:15:07 Influenza, split virus, quadrivalent, preservative 6 completed MD Kane Galeano [address], [place], [address], [facility] 06/12/2023 16:15:07 Influenza, split virus, quadrivalent, preservative 7 completed MD Kane Galeano [address], [place], [address], [facility] 06/12/2023 16:15:07 Pneumococcal conjugate PCV 13 5 completed MD Kane Galeano [address], [place], [address], [facility] 06/12/2023 16:15:08 pneumococcal polysaccharide PPV23 9 completed MD Kane Galeano [address], [place], [address], [facility] 06/12/2023 16:15:07 zoster live 0 completed MD Kane Galeano [address], [place], [address], [facility] 06/12/2023 16:15:08 Hep B, unspecified formulation 8 completed MD Kane Galeano [address], [place], [address], [facility] 06/12/2023 16:15:08 Hep A, adult 8 completed Ashlee Doyle MD [address] [place] [address], [place], [address], [facility] 06/12/2023 16:15:08 Past Encounters Encounter ID Performer Location Encounter Start Date Encounter Closed Date Diagnosis/Indication Diagnosis SNOMED-CT Code Diagnosis ICD10 Code Diagnosis IMO Codes Diagnosis Note [id number] Ashlee Doyle MD [facility], [address] [place] [address] 05/10/2017 13:31:26 05/10/2017 15:39:20 Hyperlipidemia 32315035 E78.5 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 [id number] Ashlee Doyle MD [facility], [address] [place] [address] 08/29/2017 14:57:53 08/29/2017 15:28:41 Benign hypertension 49160881 I10 Hyperlipidemia 20356697 E78.5 Osteoarthritis 941951117 M19.90 Carotid ar petar stenosis 29356397 I65.29 Screening for malignant neoplasm of colon 171684017 Z12.11 last C scope 11/06/13 , good for 10 years [id number] Ashlee Doyle MD [facility], [address] [place] [address] 09/21/2017 10:11:41 09/21/2017 10:59:28 Cough 08606958 R05 Diarrhea 16569808 R19.7 [id number] Ashlee Doyle MD [employer] 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 [address] [place] [address] 02/28/2018 13:37:07 02/28/2018 14:29:09 Benign hypertension 09311123 I10 good control Osteopenia 315297196 M85 .80 per pt had DEXA 03/2017 Transient cerebral ischemia 688546442 G45.9 ASA 83 , no recurrence Carotid ar petar stenosis 91571966 I65.29 last U/S 2015 Screening mammography 24 284569 Z12.31 per pt had mammogram 01/2018 Screening for malignant neoplasm of colon 959917124 Z12.11 last C scope 11/06/13 , good for 10 years [id number] Ashlee Doyle MD [employer] [employer] [address] [place] [address] 06/16/2018 12:54:37 06/16/2018 13:53:05 Gastroesophageal reflux disease without esophagitis 052908076 K21.9 Hyperlipidemia 18302420 E78.5 last LDL 11/2017 Sinusitis 17477631 J32.9 Benign hypertension 1072 5009 I10 good control Screening mammography 24 895603 Z12.31 per pt had mammogram 01/2018 Screening for malignant neoplasm of cervix 486014199 Z12.4 per pt had PAP 06/2017 Screening for malignant neoplasm of colon 956978048 Z12.11 last C scope 11/06/13 , good for 10 years Active or passive immunization 640429420 Z23 Carotid ar petar stenosis 60147916 I65.29 last U/S 2015 ., per pt cardiology is repeating [id number] Ashlee Doyle MD [employer] [address] [place] [address] 10/03/2018 14:57:58 10/03/2018 16:11:48 Benign hypertension 90985076 I10 good control Carotid ar petar stenosis 79074863 I65.29 last U/S 08/10/18 ., per pt cardiology is repeating Transient cerebral ischemia 256302099 G45.9 ASA 83 , no recurrence Vitamin D deficiency 347 37070 E55.9 Gastroesop hageal reflux disease without esophagitis 344554033 K21.9 Sinusitis 39014387 J32.9 Screening mammography 24 967645 Z12.31 per pt had mammogram 01/2018 Screening for malignant neoplasm of cervix 512805411 Z12.4 per pt had PAP 06/2017 Hemorrhoids 26733454 K64 .9 Screening for malignant neoplasm of colon 543549932 Z12.11 last C scope 11/06/13 , good for 10 years Mixed hyperlipidemia 267 116988 E78.2 [id number] Ashlee Doyle MD [employer] [address] [place] [address] 01/05/2019 12:24:53 01/05/2019 13:06:15 Adult health examination 676032835 Z00.01 Benign hypertension 1072 5009 I10 good control Hyperlipidemia 92728319 E78.5 last LDL 01/01/19 Left bundl e branch block 45115510 I44.7 will check EKG Osteopenia 387245842 M85 .80 per pt had DEXA 03/2017 Osteoarthritis 566801662 M19.90 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 64536 I82.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 , asymptomat ic for now Age relate d macular degeneration 438322093 H35.30 sees ophth every 6 months Allergic r hinitis 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 80588356 J30.1 Carotid ar petar stenosis 74248848 I65.29 last U/S 08/10/18 ., per pt cardiology is repeating 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.109 no recurrence Hemorrhoids 71395737 K64 .9 History of Malignant melanoma 464360054 Z85.820 Screening mammography 24 466180 Z12.31 per pt had mammogram 01/2018 Screening for malignant neoplasm of cervix 825753636 Z12.4 per pt had PAP 06/2017 Screening for malignant neoplasm of colon 095374657 Z12.11 last C scope 11/06/13 , good for 10 years [id number] Ashlee Doyle MD [employer] [place] [address] [place] [address] 04/10/2019 11:48:21 04/10/2019 12:24:24 Benign hypertension 02542994 I10 good control Hyperlipidemia 60259514 E78.5 last LDL 01/01/19 Osteopenia 928352106 M85 .80 per pt had DEXA 05/12/2017 Carotid ar petar stenosis 41216858 I65.29 last U/S 08/10/18 ., per pt cardiology is repeating Screening mammography 24 085505 Z12.31 per pt had mammogram 01/2018 Screening for malignant neoplasm of colon 662508028 Z12.11 last C scope 11/06/13 , good for 10 years [id number] Ashlee Doyle MD [employer] [facility] [address] [place] [address] 07/03/2019 11:59:15 07/03/2019 12:33:09 Benign hypertension 69044353 I10 per pt BP on the low side , will decrease irbesartan to 1/2 tab of 75 , BP 2 weeksseen ophth 06/2019 Hyperlipidemia 01419602 E78.5 last LDL 01/01/19 Osteopenia 549085914 M85 .80 per pt had DEXA 05/12/2017 Carotid ar petar stenosis 96166094 I65.29 last U/S 08/10/18 ., per pt cardiology is repeating Gastroesop hageal reflux disease without esophagitis 806766026 K21.9 Sinusitis 53956768 J32.9 Screening mammography 24 758622 Z12.31 per pt had mammogram 02/2019 Screening for malignant neoplasm of cervix 351577802 Z12.4 per pt had PAP 06/2017 Screening for malignant neoplasm of colon 935726166 Z12.11 last C scope 11/06/13 , good for 10 years Active or passive immunization 167782444 Z23 up to date [id number] Ashlee Doyle MD [employer] [facility] [address] [place] [address] 10/08/2019 14:13:26 10/08/2019 15:12:20 Benign hypertension 30303989 I10 seen ophth 06/2019 Carotid ar petar stenosis 45399035 I65.29 last U/S 08/10/18 ., Hyperlipidemia 83906664 E78.5 last LDL 01/01/19 History of Malignant melanoma 063749871 Z85.820 sees derm on yearly basis Osteoarthritis 360335231 M19.90 Osteopenia 889376492 M85 .80 per pt had DEXA 05/12/2017 Screening mammography 24 485531 Z12.31 per pt had mammogram 02/2019 Screening for malignant neoplasm of colon 876989820 Z12.11 last C scope 11/06/13 , good for 10 years Active or passive immunization 219240107 Z23 up to date [id number] [employer] [place] [address] [place] [address] 11/19/2019 11:02:38 11/19/2019 11:38:22 Varicose veins of lower extremity 98085516 I83.93 Skin nodule 25242371 R22 .9 left coates - Pain in le ft lower limb 775521292 M79.605 medial and lateral of lower calf Paresthesi a of lower extremity 234616782 R20.2 off and on x 6 months - left pretibial area - no numbness or weaknessoc curs occasional ly - [id number] Ashlee Doyle MD [employer] [address] [facility] [address] [place] [address] 02/29/2020 12:53:53 02/29/2020 13:37:18 Adult health examination 834063375 Z00.01 Benign hypertension 1072 5009 I10 seen ophth 06/2019 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 , asymptomat ic for now Age relate d macular degeneration 100535763 H35.30 sees ophth every 6 months Allergic r hinitis 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 69844678 J30.1 stable on OTC meds Carotid ar petar stenosis 55730770 I65.29 last U/S 08/10/18 ., Gastroesop hageal reflux disease without esophagitis 190659959 K21.9 stable on diet control History of Malignant melanoma 313138385 Z85.820 sees derm on yearly basis Hyperlipidemia 10138096 E78.5 last LDL 01/01/19 Left bundl e branch block 67545691 I44.7 will check EKG 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.B0 less than 2 times a month Osteoarthritis 727726392 M19.90 tylenol 500 TID Osteopenia 956900904 M85 .80 per pt had DEXA 05/12/2017 Focal onse t epileptic seizure 88122292 G40.109 no recurrence Transient cerebral ischemia 865400300 G45.9 ASA 81 , no recurrence Screening mammography 24 537804 Z12.31 per pt had mammogram 02/2019 Screening for malignant neoplasm of cervix 526432208 Z12.4 per pt had PAP 06/2017 Screening for malignant neoplasm of colon 509152876 Z12.11 last C scope 11/06/13 , good for 10 years Active or passive immunization 070138401 Z23 up to date [id number] Ashlee Doyle MD [employer] [address] [place] [address] 05/30/2020 12:46:46 05/30/2020 13:45:24 Benign hypertension 44174562 I10 seen ophth 06/2019hol d irbesartan 3 weeks to see if it will help with ST Allergic r hinitis 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 21648954 J30.1 stable on OTC meds Carotid ar petar stenosis 57708496 I65.29 last U/S 08/10/18 ., Gastroesop hageal reflux disease without esophagitis 733936133 K21.9 stable on diet control Hyperlipidemia 00552960 E78.5 last LDL 03/06/20 Osteopenia 319738886 M85 .80 per pt had DEXA 05/12/2017 Transient cerebral ischemia 158237561 G45.9 ASA 81 , no recurrence Idiopathic peripheral neuropathy 06566267 G60.9 per neurology notedeclin e meds Chronic sore throat 2754 95899 J31.2 Family his tory of diabetes mellitus 422230354 Z83.[address] A1c 11/19/19 Screening mammography 24 776007 Z12.31 per pt had mammogram 02/2019 Screening for malignant neoplasm of colon 764830648 Z12.11 last C scope 11/06/13 , good for 10 years Active or passive immunization 067298611 Z23 up to date [id number] Ashlee Doyle MD [employer], [address] ,[address] [address] 01/13/2021 16:32:19 01/13/2021 17:26:08 Localized swelling, mass and lump, neck 149442294 R22.1 Benign hypertension 1072 5009 I10 seen ophth 06/2019hol d irbesartan 3 weeks to see if it will help with ST Carotid ar petar stenosis 14956722 I65.29 last U/S 06/12/20 History of Malignant melanoma 395610608 Z85.820 sees derm on yearly basis Hyperlipidemia 50345230 E78.5 last LDL 03/06/20 Idiopathic peripheral neuropathy 19145131 G60.9 per neurology notedeclin e meds Osteopenia 265909417 M85 .80 per pt had DEXA 03/06/20 Right uppe r quadrant pain 511185652 R10.11 Screening mammography 24 628400 Z12.31 per pt had mammogram 06/20/20 Screening for malignant neoplasm of cervix 462832918 Z12.4 per pt had PAP 06/2017 Screening for malignant neoplasm of colon 541899002 Z12.11 last C scope 11/06/13 , good for 10 years Active or passive immunization 669108615 Z23 up to date [id number] Ashlee Doyle MD [facility], [place] [address] [address] [place] [address] 01/27/2021 12:22:08 01/27/2021 13:08:34 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 S/P 4 cycles R-CHOP 04/2021 Hyperlipidemia 90060058 E78.5 last LDL 03/06/20 Allergic r hinitis 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 00515934 J30.1 stable on OTC meds Osteopenia 413124379 M85 .80 per pt had DEXA 03/06/20 Idiopathic peripheral neuropathy 31282418 G60.9 per neurology notedeclin e meds Gastroesop hageal reflux disease without esophagitis 631799346 K21.9 stable on diet control Screening mammography 24 125674 Z12.31 per pt had mammogram 06/20/20 Screening for malignant neoplasm of cervix 157368844 Z12.4 per pt had PAP 06/2017 Screening for malignant neoplasm of colon 869595707 Z12.11 last C scope 11/06/13 , good for 10 years Active or passive immunization 885768180 Z23 up to dateflu shot and COVID booster Adult heal th examination 555815515 Z00.01 last ophth eval 05/2021 Coronary arteriosclerosis 56255105 I25.10 asymptomat icmild per cardiology note Carotid ar petar stenosis 73795238 I65.29 last U/S 06/12/20 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 06708 I82.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 , asymptomat ic for now Benign hypertension 1072 5009 I10 seen ophth 06/2019goo d off irbesartan Age relate d macular degeneration 991041659 H35.30 sees ophth every 6 months Hemorrhoids 77307226 K64 .9 Left bundl e branch block 27598726 I44.7 asymptomat icseen cardiology 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.B0 less than 2 times a month [id number] Ashlee Doyle MD [employer] [address] [facility] ,[address] [address] 12/11/2021 12:26:26 12/23/2021 18:32:01 Benign hypertension 47701037 I10 seen ophth 11/2021good off irbesartan Carotid ar petar stenosis 91451199 I65.29 last U/S 06/12/20hav ing US 12/15/21 Coronary arteriosclerosis 38202814 I25.10 asymptomat icmild per cardiology note Hyperlipidemia 16830177 E78.5 last LDL 03/06/20car diology changed to rosuva 5 Idiopathic peripheral neuropathy 60292254 G60.9 per neurology notedeclin e meds 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, face AND/OR neck 73347037 C85.91 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.B0 less than 2 times a monthhavin g MRI of brain 12/15/21 Paroxysmal atrial fibrillation 352676384 I48.0 cardiology had holter ,cardiolog y stopped amiodarone and toprol Screening mammography 24 997817 Z12.31 per pt had mammogram 09/21/21 Screening for malignant neoplasm of cervix 999925233 Z12.4 per pt had PAP 06/2017 Screening for malignant neoplasm of colon 722500622 Z12.11 last C scope 11/06/13 , good for 10 years Active or passive immunization 908883027 Z23 up to dateflu shot and COVID booster History of SARS-CoV-2 29 42031046 02552783 Z86.16 tested +ve 10/2021 Long-term drug therapy 324870713 Z79.899 statin 095504 Ashlee Doyle MD [employer] [address] [facility] [address] [place] [address] 01/28/2022 11:28:38 01/28/2022 12:24:45 Arthritis of hand 198953779 M13.849 labs @ ER (CBC,CMP,U ron acid and ESR) were NLX ray showed OA Benign hypertension 1072 5009 I10 seen ophth 11/2021good off irbesartan Carotid ar petar stenosis 78875638 I65.29 last U/S 07/13/21 Coronary arteriosclerosis 38365694 I25.10 asymptomat icmild per cardiology note Diffuse hi gh grade B-cell lymphoma 309411001 C83.30 S/P 4 cycles R-CHOP 04/2021 Hyperlipidemia 84528366 E78.5 last LDL 12/24/21card iology changed to rosuva 5 Idiopathic peripheral neuropathy 63492052 G60.9 per neurology notedeclin e medslast B12 08/11/21 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.B0 less than 2 times a monthhavin g MRI of brain 12/15/21 Paroxysmal atrial fibrillation 234401597 I48.0 cardiology had holter ,cardiolog y stopped amiodarone and toprol Screening mammography 24 759528 Z12.31 per pt had mammogram 09/21/21 Screening for malignant neoplasm of cervix 084563958 Z12.4 per pt had PAP 06/2017 Screening for malignant neoplasm of colon 545825052 Z12.11 last C scope 11/06/13 , good for 10 years Active or passive immunization 692210487 Z23 up to dateflu shot and COVID booster Allergic r hinitis 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 83544801 J30.1 stable on OTC meds [id number] Ashlee Doyle MD [employer] [address] [facility] [address] [place] [address] 04/02/2022 12:41:21 04/02/2022 13:38:06 Acute urinary tract infection 054181358 N39.0 Low back pain 819542890 M54.50 Congestion of nasal sinus 67556542 R09.81 Benign hypertension 1072 5009 I10 seen ophth 11/2021good off irbesartan Screening mammography 24 117972 Z12.31 per pt had mammogram 09/21/21 Active or passive immunization 436061106 Z23 up to dateflu shot and COVID booster 911234 Ashlee Doyle MD [employer], [address] ,[address] [address] 07/09/2022 12:26:29 07/09/2022 13:18:33 Adult health examination 524577907 Z00.01 last ophth eval 05/2022 Benign hypertension 1072 5009 I10 seen ophth 11/2021good off irbesartan Allergic r hinitis 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 54959740 J30.1 stable on OTC meds Carotid ar petar stenosis 81444090 I65.29 last U/S 07/13/21 Coronary arteriosclerosis 32390976 I25.10 asymptomat icmild per cardiology note Diffuse hi gh grade B-cell lymphoma 485962759 C83.30 S/P 4 cycles R-CHOP 04/2021 Gastroesop hageal reflux disease without esophagitis 769945337 K21.9 stable on diet control History of Malignant melanoma 646240814 Z85.820 sees derm on yearly basis History of SARS-CoV-2 29 47018143 34081198 Z86.16 tested +ve 10/2021 Hyperlipidemia 64883944 E78.5 last LDL 12/24/21card iology changed to rosuva 5 Idiopathic peripheral neuropathy 61328988 G60.9 per neurology notedeclin e medslast B12 08/11/21 Left bundl e branch block 60573603 I44.7 asymptomat icseen cardiology Long-term drug therapy 300455034 Z79.899 statin Open-angle glaucoma of left eye 677395466 H40.1130 ophth eval 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.B0 less than 2 times a monthhavin g MRI of brain 12/15/21 Osteoarthritis 601065212 M19.90 tylenol 500 TID Osteopenia 368124998 M85 .80 per pt had DEXA 03/06/20 Paroxysmal atrial fibrillation 751902977 I48.0 cardiology had holter ,cardiolog y stopped amiodarone and toprol Focal onse t epileptic seizure 71172881 G40.109 no recurrence Screening mammography 24 369741 Z12.31 per pt had mammogram 09/21/21 Screening for malignant neoplasm of cervix 789292836 Z12.4 per pt had PAP 06/2017 Screening for malignant neoplasm of colon 028004466 Z12.11 last C scope 11/06/13 , good for 10 years Active or passive immunization 417651959 Z23 up to dateflu shot and COVID booster Increased frequency of urination 439429496 R35.0 Hemorrhoids 94589249 K64 .9 Congestion of nasal sinus 49976335 R09.81 [id number] Ashlee Doyle MD [employer], [place] [address] [facility] ,[address] [address] 10/12/2022 12:17:42 10/12/2022 13:49:28 Benign hypertension 85174490 I10 seen ophth 11/2021good off irbesartan last EKG 06/28/22 Carotid ar petar stenosis 88539004 I65.29 last U/S 07/13/21 Coronary arteriosclerosis 98087978 I25.10 asymptomat icmild per cardiology note Gastroesop hageal reflux disease without esophagitis 473396191 K21.9 stable on diet control Hyperlipidemia 58487160 E78.5 last LDL 12/24/21card iology changed to rosuva 5 Paroxysmal atrial fibrillation 692942445 I48.0 cardiology had holter ,cardiolog y stopped amiodarone and toprolchad score 4-5 Diffuse hi gh grade B-cell lymphoma 275573634 C83.30 S/P 4 cycles R-CHOP 04/2021 Vitamin B deficiency 479 61083 E53.9 Screening mammography 24 690007 Z12.31 per pt had mammogram 09/21/21 Long-term drug therapy 661387418 Z79.899 statin Screening for malignant neoplasm of cervix 737487370 Z12.4 per pt had PAP 06/2017 Screening for malignant neoplasm of colon 398256439 Z12.11 last C scope 11/06/13 , good for 10 years Active or passive immunization 134294070 Z23 up to dateflu shot and COVID booster Mixed urin vini incontinence 869518357 N39.46 [id number] Ashlee Doyle MD [employer] [address] [place] [address] 01/26/2023 11:04:40 01/26/2023 11:53:47 Atrial fibrillation 11064564 I48.91 stablesees cardiology on reg basis Benign hypertension 1072 5009 I10 seen ophth 08/2022 per ptlast EKG 01/04/23 Osteoarthritis 704385405 M19.90 tylenol 500 TID Arthritis of hand 218775 005 M13.849 labs @ ER (CBC,CMP,U ron acid and ESR) were NLX ray showed OA Age relate d macular degeneration 750437959 H35.30 sees ophth every 6 months Carotid ar petar stenosis 35190766 I65.29 last U/S 07/13/21 Hyperlipidemia 44339946 E78.5 last LDL 12/24/21card iology changed to rosuva 5 Idiopathic peripheral neuropathy 71270962 G60.9 per neurology notedeclin e medslast B12 08/11/21 Long-term drug therapy 659967843 Z79.899 statin 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.B0 less than 2 times a monthhavin g MRI of brain 12/15/21 Hypomagnesemia 231066866 E83.42 Hyponatremia 86042600 E8 7.1 no salt restrictio n Screening mammography 24 958322 Z12.31 per pt had mammogram 11/08/22 Screening for malignant neoplasm of cervix 911846718 Z12.4 per pt had PAP 06/2017 Screening for malignant neoplasm of colon 347698555 Z12.11 last C scope 11/06/13 , good for 10 years Active or passive immunization 257496438 Z23 up to dateflu shot and COVID booster [id number] Ashlee Doyle MD [employer], [facility] [address] [place] [address] 04/14/2023 11:58:27 04/14/2023 13:37:29 Cellulitis of lower leg 028243333 L03.119 Insomnia 378953928 G47.0 0 Benign hypertension 1072 5009 I10 seen ophth 08/2022 per ptlast EKG 01/04/23 Carotid ar petar stenosis 73475497 I65.29 last U/S 07/13/21 Paroxysmal atrial fibrillation 664013388 I48.0 cardiology had holter ,cardiolog y stopped amiodarone and toprolchad score 4-5anticoa gulation safty education Cough 59573861 R05.9 Hypomagnesemia 651037174 E83.42 Mixed hyperlipidemia 267 694441 E78.2 Long-term drug therapy 181472219 Z79.899 statin Screening mammography 932979 Z12.31 per pt had mammogram 11/08/22 Screening for malignant neoplasm of colon 374900966 Z12.11 last C scope 11/06/13 , good for 10 years Screening for malignant neoplasm of cervix 223928596 Z12.4 per pt had PAP 06/2017 Active or passive immunization 894913036 Z23 up to dateflu shot and COVID booster [id number] Ashlee Doyle MD [employer], [place] [address] [facility] [address] ,[address] [address] 06/16/2023 11:35:15 06/16/2023 13:03:22 Dysphagia 43626378 R13.10 Body mass index 20-24 - normal 677704810 Z68.20 down 10 LBs without trying Benign hypertension 1072 5009 I10 on the low side today , with light headinesss top amlodipine BP 2 weeksseen ophth 08/2022 per ptlast EKG 01/04/23 Dysuria 14057951 R30.0 Carotid ar petar stenosis 47806622 I65.29 last U/S 10/12/22 per pt Paroxysmal atrial fibrillation 223234269 I48.0 cardiology had holter ,anita score 4-5anticoa gulation safty education Screening mammography 24 518356 Z12.31 per pt had mammogram 11/08/22 Screening for malignant neoplasm of cervix 109263452 Z12.4 per pt had PAP 06/2017 Screening for malignant neoplasm of colon 583298788 Z12.11 last C scope 11/06/13 , good for 10 years Active or passive immunization 198850152 Z23 up to date Osteopenia 382168219 M85 .80 per pt had DEXA 11/08/22 Fatigue 16019535 R53.83 Hyperlipidemia 35553041 E78.5 last LDL 12/24/21card iology changed to rosuva 5 [id number] Ashlee Doyle MD [employer] [facility], [address] [place] [address] 06/27/2023 10:57:18 06/27/2023 12:29:38 Benign hypertension 87287500 I10 on the higher side @ homeadd 12.5 losartanBP 2 weeksseen ophth 08/2022 per ptlast EKG 01/04/23 Dysuria 95788979 R30.0 Hyponatremia 29190309 E8 7.1 no salt restrictio n Screening for malignant neoplasm of cervix 701120700 Z12.4 per pt had PAP 06/2017 Active or passive immunization 890623652 Z23 up to date Atrophic vaginitis 90324 000 N95.2 [id number] Ashlee Doyle MD [employer] [facility], [address] [address] [place] [address] 08/24/2023 10:58:39 08/24/2023 12:05:07 Benign hypertension 55736365 I10 good controlon 12.5 losartanBP 2 weeksseen ophth 08/2023 per ptlast EKG 01/04/23 Carotid ar petar stenosis 20999238 I65.29 last U/S 10/12/22 per pt Coronary arteriosclerosis 79122480 I25.10 asymptomat icmild per cardiology note Gastroesop hageal reflux disease without esophagitis 430848017 K21.9 GI add pantoprazo le 40 BID and carafate Hyponatremia 14400238 E8 7.1 no salt restrictio n Screening mammography 24 273444 Z12.31 per pt had mammogram 11/08/22 Screening for malignant neoplasm of cervix 438136538 Z12.4 per pt had PAP 06/2023 Screening for malignant neoplasm of colon 466783802 Z12.11 last C scope 11/06/13 , good for 10 years Active or passive immunization 939426634 Z23 up to date Adult heal th examination 815675947 Z00.01 last ophth eval 05/2023 Focal onse t epileptic seizure 93404073 G40.109 no recurrence Family his tory of diabetes mellitus 129029629 Z83.[address] A1c 05/13/23 Diffuse hi gh grade B-cell lymphoma 700493300 C83.30 S/P 4 cycles R-CHOP 04/2021 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 , asymptomat ic for now Age relate d macular degeneration 016174134 H35.30 sees ophth every 6 months Allergic r hinitis 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 33418430 J30.1 stable on OTC meds History of Malignant melanoma 099829794 Z85.820 sees derm on yearly basis History of SARS-CoV-2 29 65518632 73063852 Z86.16 tested +ve 10/2021 Hyperlipidemia 72435896 E78.5 last LDL 05/13/23car diology changed to rosuva 5 Hypomagnesemia 742600959 E83.42 last level 06/21/23 Idiopathic peripheral neuropathy 55952847 G60.9 per neurology notedeclin e medslast B12 06/21/23 Increased frequency of urination 169245778 R35.0 Insomnia 215988777 G47.0 0 better Left bundl e branch block 19834814 I44.7 asymptomat icseen cardiology Long-term drug therapy 176915412 Z79.899 statin , last A1c 05/11/23 Macrocytosis 032972305 D 75.89 last b12 06/27/23 Neoplasm o f supraclavicular region 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 [facility] ,[address] [address] 11/23/2023 11:02:35 11/23/2023 12:01:52 Candidiasis of esophagus 64214719 B37.81 had EGD 10/20/23 , had 2 rounds of fluconazol e Congestive heart failure 69895623 I50.9 last ECHO 10/2023 Anemia 610105404 D64.9 Paroxysmal atrial fibrillation 358036718 I48.0 cardiology had holter ,anita score 4-5anticoa gulation safty education Carotid ar petar stenosis 20775608 I65.29 last U/S 10/12/22 per pt Active or passive immunization 421660513 Z23 up to date Body mass index less than 20 283074147 Z68.1 [id number] Ashlee Doyle MD [employer] [facility] [address] [place] [address] 01/06/2024 12:05:09 01/06/2024 14:11:13 Mild memory disturbance 184228098 R41.3 mild , Age relate d macular degeneration 060179702 H35.30 sees ophth every 6 monthsneed help with ADLsform 4 pages done today Idiopathic peripheral neuropathy 95805626 G60.9 per neurology notedeclin e medslast B12 06/21/23 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.B0 less than 2 times a monthhavin g MRI of brain 12/15/21 Paroxysmal atrial fibrillation 636472073 I48.0 cardiology had holter ,anita score 4-5anticoa gulation safty education [id number] Ashlee Doyle MD [employer] [facility] [address] [place] [address] 03/06/2024 14:59:36 03/06/2024 16:02:00 Anemia 007362931 D64.9 Benign hypertension 1072 5009 I10 good controlBP 2 weeksseen ophth 08/2023 per ptlast EKG 01/04/23 Cough 43302371 R05.9 Carotid ar petar stenosis 22495252 I65.29 last U/S 10/12/22 per pt Hyperlipidemia 03205500 E78.5 last LDL 05/13/23car diology changed to rosuva 5 Fall on same level 01199 003 W18.30XA one time , 2 months agoeducati on Screening mammography 24 494663 Z12.31 per pt had mammogram 12/30/23 Screening for malignant neoplasm of cervix 776132599 Z12.4 per pt had PAP 06/2023 Screening for malignant neoplasm of colon 815546236 Z12.11 last C scope 11/06/13 , good for 10 years Active or passive immunization 885455925 Z23 up to date Benign par oxysmal positional vertigo 678878973 H81.10 948131 Ashlee Doyle MD [facility], [place] [address] [facility] [address] [place] [address] 04/18/2024 11:36:37 04/18/2024 12:38:39 Pneumonia 260589261 J18.9 LLL on CXR 04/05/24O2 is 93% Congestive heart failure 58962373 I50.9 last ECHO 10/2023 , EF 45%resolve d Paroxysmal atrial fibrillation 268078119 I48.0 cardiology had holter ,anita score 4-5anticoa gulation safty education Iron defic iency anemia 43131820 D50.9 Benign hypertension 1072 5009 I10 good controlBP 2 weeksseen ophth 08/2023 per ptlast EKG 01/04/23 Candidiasis of vagina 72 136279 B37.31 847852 Ashlee Doyle MD [employer], [place] [address] [address] [place] [address] 06/18/2024 11:27:00 06/18/2024 12:45:24 Benign hypertension 59445602 I10 good controlBP 2 weeksseen ophth 08/2023 per ptlast EKG 06/27/23 Congestive heart failure 52811906 I50.9 last ECHO 10/2023 , EF 45%resolve d Dysphagia 21173286 R13.1 0 seen GI , having EGD Paroxysmal atrial fibrillation 254573227 I48.0 cardiology had holter ,anita score 4-5anticoa gulation safty education Stasis dermatitis 639331 05 I87.2 low ext Screening mammography 24 085929 Z12.31 per pt had mammogram 12/30/23 Screening for malignant neoplasm of cervix 583200857 Z12.4 per pt had PAP 06/2023 Screening for malignant neoplasm of colon 893520406 Z12.11 last C scope 11/06/13 , good for 10 years Active or passive immunization 433318536 Z23 up to date [id number] Ashlee Doyle MD [employer] [address] [place] [address] 10/08/2024 11:08:50 10/08/2024 12:22:58 Benign hypertension 81056898 I10 good controlBP 2 weeksseen ophth 08/2024 per ptlast EKG 06/27/23 Carotid ar petar stenosis 78318392 I65.29 last U/S 10/12/22 per pt Hypomagnesemia 712496852 E83.42 last level 06/21/23 Hyperlipidemia 53263157 E78.5 last LDL 05/13/23car diology changed to rosuva 5 Idiopathic peripheral neuropathy 40454995 G60.9 per neurology notedeclin e medslast B12 06/21/23 Iron defic iency anemia 42682499 D50.9 Long-term drug therapy 413622750 Z79.899 statin , last A1c 02/2024 ,amiodaron e , scheduled for PFT 11/2023 per pt Congestive heart failure 71922896 I50.9 last ECHO 10/2023 , EF 45%resolve d Screening mammography 24 825143 Z12.31 per pt had mammogram 12/30/23 Screening for malignant neoplasm of cervix 520291552 Z12.4 per pt had PAP 06/2023 Screening for malignant neoplasm of colon 131309692 Z12.11 last C scope 11/06/13 , no polyp Active or passive immunization 996353426 Z23 up to date Unintentio nal weight loss 169935539 R63.4 Paroxysmal atrial fibrillation 585818496 I48.0 cardiology had holter ,anita score 4-5anticoa gulation safty education [id number] Ashlee Doyle MD [employer] [address] [place] [address] 04/02/2025 11:20:44 04/02/2025 12:56:19 Adult health examination 228633960 Z00.01 5403969 last ophth eval 05/2023 Benign hypertension 1072 5009 I10 good controlBP 2 weeksseen ophth 08/2024 per ptlast EKG 06/27/23 Coronary arteriosclerosis 34507582 I25.10 asymptomat icmild per cardiology note Paroxysmal atrial fibrillation 830100602 I48.0 cardiology had holter ,anita score 4-5anticoa gulation safty education Peripheral vascular disease 293555521 I73.9 per cardiology note 01/21/23 Carotid ar petar stenosis 09901414 I65.29 last U/S 10/12/22 per pt Mixed hyperlipidemia 267 956999 E78.2 last LDL 10/23/24 Congestive heart failure 55810190 I50.9 last ECHO 10/2023 , EF 45%resolve d 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 92541 I82.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 , asymptomat ic for now Prediabetes 568002068 R7 3.03 Body mass index less than 20 647001450 Z68.1 education Vitamin B deficiency 479 47832 E53.9 b12 06/21/23 Open-angle glaucoma of left eye 114779922 H40.1130 ophth eval Age relate d macular degeneration 275279548 H35.30 sees ophth every 6 monthsneed help with ADLsform 4 pages done today Dysphagia 57085124 R13.1 0 seen GI , had EGD Gastroesop hageal reflux disease without esophagitis 286947814 K21.9 GI add pantoprazo le 40 BID and carafate Hypomagnesemia 697756367 E83.42 last level 06/21/23 Mixed urin vini incontinence 972791586 N39.46 Anemia 393120064 D64.9 Diffuse hi gh grade B-cell lymphoma 053203331 C83.30 S/P 4 cycles R-CHOP 04/2021 History of Malignant melanoma 552776189 Z85.820 sees derm on yearly basis History of SARS-CoV-2 29 71788633 95666498 Z86.16 tested +ve 10/2021 Osteoarthritis 513473500 M19.90 tylenol 500 TID 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.B0 less than 2 times a monthhavin g MRI of brain 12/15/21 Transient cerebral ischemia 414354011 G45.9 ASA 81 , no recurrence Mild memor y disturbance 004090301 R41.3 mild , Idiopathic peripheral neuropathy 84898282 G60.9 per neurology notedeclin e medslast B12 06/21/23 Insomnia 572593396 G47.0 0 better Focal onse t epileptic seizure 75565611 G40.109 no recurrence Allergic r hinitis 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 07526533 J30.1 stable on OTC meds Fracture o f superior pubic ramus 233335187 S32.511D 74566433 seen ortho , getting better , on PT Low back pain 141984300 M54.50 78254 Screening mammography 24 186916 Z12.31 1712485180 per pt had mammogram 12/30/23 Cancer cer vix screening status 724680263 Z12.4 030037 per pt had PAP 06/2023 Screening for malignant neoplasm of colon 830843847 Z12.11 240286 last C scope 11/06/13 , no polyp Immunization due 9688221 08 Z23 9432590 up to date Counseling 992574509 Z71 .89 714842 education [id number] Ashlee Doyle MD [employer], [place] [address] [employer] [address] ,[address] [address] 07/09/2025 11:34:48 07/09/2025 12:47:12 Benign hypertension 37320812 I10 - good control- BP 2 weeks- seen ophth 06/2025 per pt- last EKG 04/02/25 Congestive heart failure 17704632 I50.9 - last ECHO 10/2023 , EF 45%- resolved Paroxysmal atrial fibrillation 443804870 I48.0 - cardiology had holter ,- anita score 4-5- anticoagul ation safty education Peripheral vascular disease 059964298 I73.9 - per cardiology note 01/21/23 Carotid ar petar stenosis 47865343 I65.29 - last U/S 10/12/22 per pt Mixed hyperlipidemia 267 800542 E78.2 - last LDL 10/23/24 Neck pain 40634468 M54.2 55665 Prediabetes 557142811 R7 3.03 - last A1c 04/16/25 Body mass index less than 20 445701122 Z68.1 education Vitamin B deficiency 479 51486 E53.9 b12 06/21/23 Hypomagnesemia 282082727 E83.42 - last level 04/16/25 Anemia 760848656 D64.9 Screening mammography 24 614010 Z12.31 7656377738 per pt had mammogram 04/16/25 Screening for malignant neoplasm of cervix [id number] Z12.4 [id number] per pt had PAP 06/2023 Screening for malignant neoplasm of colon [id number] Z12.11 701204 last C scope 11/06/13 , no polyp Immunization due [id number] Z23 [id number] up to date Health Concerns Section Related Observation LastModified by Organization Detai ls LastModified Time None Recorded Concern Status LastModified by Organization Details LastModified Time None Recorded Advance Directives Directive None Recorded Payers Insurance Date Sequence Insurance Name Policy Number Policy Tai Covered Member ID Tai Member ID Guarantor Name 07/06/2025 2 [place] 104 Agustina Cordova [id number] Agustina Cordova 07/06/2025 1 [place] Agustina Cordova [id number] Agustina Cordova Notes Date Note Type Note Provider Name and Address Organization Details Recorded Time 4 text/html Hospitalization Contact RecordReported by PatientHospitalization Contact RecordFor follow up, patient reportsdate of discharge: (please enter in format 'mm/dd/yyyy') (04/07/24)anddate of contact: (please enter in format 'mm/dd/yyyy') (04/09/24). Hypertension F/UReported by PatientHPIFor medications, patient reportstaking medications as directedandno side effects from medication. For lifestyle, patient reportsregular exercise,limiting/avoiding salt, andcompliant with low salt diet. For associated symptoms, patient reportsno dizziness,no lightheadedness,no chest pain,no shortness of breath,no palpitations,no edema,no calf pain with exertion, andno headache. went to ER 04/03/24 for weakness , inpt till 04/07/24 Dx Pneumonia , Better now Ashlee Doyle MD [address] [facility] [address], [place], [address], [facility] 04/18/2024 12:33:14 4 text/html Hypertension F/UReported by PatientHPIFor medications, patient reportstaking medications as directedandno side effects from medication. For lifestyle, patient reportsregular exercise,limiting/avoiding salt, andcompliant with low salt diet. For associated symptoms, patient reportsno dizziness,no lightheadedness,no chest pain,no shortness of breath,no palpitations,no edema,no calf pain with exertion, andno headache. Ashlee Doyle MD [address], [place], [address], [facility] 06/18/2024 12:41:56 5 text/html Hypertension F/UReported by PatientHPIFor medications, patient reportstaking medications as directedandno side effects from medication. For lifestyle, patient reportsregular exercise,limiting/avoiding salt, andcompliant with low salt diet. For associated symptoms, patient reportsno dizziness,no lightheadedness,no chest pain,no shortness of breath,no palpitations,no edema,no calf pain with exertion, andno headache. Ashlee Doyle MD [address], [place], [address], [facility] 10/08/2024 12:13:35 5 text/html Medicare Annual Wellness VisitReported by PatientSocial/Behavioral HistoryFor diet and nutrition, patient reportshealthy diet. For fracture risk, patient reportsno history of fractures,no recent explained fracture,no sudden unexplained fractures, andno previous musculoskeletal injuries. For physical activity, patient reportsexercises on a regular basis,recent increase in physical activity,good physical condition, anddiscussed exercise habits.Mental Status:For depression risk, patient reportsnever feels sad, empty, or tearful,no loss of interest in activities,no significant changes in weight,no sleep disturbances or insomnia,no agitation,no loss of energy,no feelings of worthlessness or guilt,no thoughts of suicide,no history of depression, andno history of mood disorders. For orientation, patient reportsno disorientation to time,no disorientation to date, andno disorientation to place. For concentration and memory, patient reportsno decreased concentrating ability,no memory lapses or loss, anddoes not forget words. For speech/motor difficulties, patient reportsno speech difficulties,no difficulty expressing formulated concepts,no difficulty with fine manipulative tasks,no difficulty writing/copying,no slowed reaction time, anddoes not knock things over when trying to pick them up.Functional AbilityFor hearing, patient reportsno loss of hearing. For vision, patient reportsno vision problems. For activities of daily living, patient reportsable to bathe with limited or no assistance,able to contol urination and bowels,able to dress with limited or no assistance,able to feed self with limited or no assistance,able to get out of chair or bed with limited or no assistance,able to groom with limited or no assistance, andable to toilet with limited or no assistance. For instrumental activities of daily living, patient reportsable to do house work with limited or no assistance,able to grocery shop with limited or no assistance,able to manage medications with limited or no assistance,able to manage money with limited or no assistance,able to prepare meals with limited or no assistance, andable to use the phone with limited or no assistance. For falls risk assessment, patient reportsno frequent falls while walking,no fall in the past year,no dizziness/vertigo, andfall(s) since last visit1. For home safety, patient reportsuse of seatbelts. Hypertension F/UReported by PatientHPIFor medications, patient reportstaking medications as directedandno side effects from medication. For lifestyle, patient reportsregular exercise,limiting/avoiding salt, andcompliant with low salt diet. For associated symptoms, patient reportsno dizziness,no lightheadedness,no chest pain,no shortness of breath,no palpitations,no edema,no calf pain with exertion, andno headache. Ashlee Doyle MD [address], [place], [address], [facility] 04/02/2025 12:42:21 5 text/html Hypertension F/UReported by PatientHPIFor medications, patient reportstaking medications as directedandno side effects from medication. For lifestyle, patient reportsregular exercise,limiting/avoiding salt, andcompliant with low salt diet. For associated symptoms, patient reportsno dizziness,no lightheadedness,no chest pain,no shortness of breath,no palpitations,no edema,no calf pain with exertion, andno headache. Ashlee Doyle MD [address] [facility] [address], [place], [address], [facility] 07/09/2025 12:40:58 OBGyn Episode No OBEpisode recorded.
--- OUTSIDE RECORDS SUMMARY | 2025-08-12 14:43 | XMS_ITS | Encounter Summary ---
Author Organization [facility] Address [address] [place] [address] Care Team Providers Care Proof Inspector Name Role Phone Olivia Foss MD Primary Care Provider Unavailable Encounter Details Date Type Department Care Team (Late st Contact Info) Description 02/07/2019 Lab Requisition [facility] Care DermPath Lab [address] [facility] [place], [place] [address] Olviia Fernandez MD [address] [facility] [address] [place] [address] Social History Tobacco Use Types Packs/Day Years Used Date Smoking Tobacco: Never Assessed Comments Unknown Sex and Gender Information Value Date Recorded Sex Assigned at Not on file 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 Jar 0. Specimen B: Received is one formalin filled container labeled with the patient's name and designated left FA. The specimen consists of a shave (2 pieces) measuring 06z9p5ri & 5i4e1py. Jar 0. 10:54 AM T DERMATOPATHOLOGY LABORATORY [...] characteristic determined by the Dermatopathology Laboratory at [facility], directed by Dr. Kwame Agrawal. These tests need not be, and therefore are not, approved by the [place] Food and Drug Administration. The tests are used for clinical purposes. Billing Codes Specimen Charges Stain Charges 26423 02891 1 1 9 10:54 AM T DERMATOPATHOLOGY LABORATORY Embedded Images 10:54 AM T DERMATOPATHOLOGY LABORATORY Pathology/Cytology TISSUE SPECIMEN FROM SKIN / Unknown 02/05/2019 02/07/2019 8:16 AM CDT Miscellaneous samples (specimen) TISSUE SPECIMEN FROM SKIN / Unknown 02/05/2019 02/07/2019 8:16 AM CDT Olivia Fernandez MD LAB - PATHOLOGY/CYTOLOGY OR DERABLES Final Result DERMATOPATHOLOGY LABORATORY [facility] - Department of Dermatology [address] [place] [address], 5th [place] [address], [facility] [phone] documented in this encounter Visit Diagnoses Not on filedocumented in this encounter Care Teams Proof Inspector Relationship Specialty Start Date End Date Olivia Foss MD PCP - General 02/05/19 documented as of this encounter
--- OUTSIDE RECORDS SUMMARY | 2025-08-12 14:43 | XMS_ITS | Encounter Summary ---
Author Organization [facility] Address [address] [place] [address] Phone Care Team Providers Care Commissary Helper Name Role Phone Miscellaneous, Not In File Unavailable Unava ilable Sheryl Latham MD Unavailable [phone] Ashlee Doyle MD Primary Care Provider [phone]- [phone] Jonh Junior MD Unavailable Encounter Details Date Type Department Care Team (Late st Contact Info) Description 06/30/2025 Results Follow-Up 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 Gender Identity Not on file Sexual Orientation Not on file Occupation Industry Job Start Date Job End Date retired Not on file Not on file Not on file documented as of this encounter Plan of Treatment Not on file documented as of this encounter Visit Diagnoses Not on filedocumented in this encounter Care Teams Commissary Helper Relationship Specialty Start Date End Date Ashlee Doyle MD [address] [place] [address] PCP - General Internal Medicine 09/05/23 Miscellaneous, Not In File 03/24/21 Sheryl Latham MD Medical Oncologist/Machine Stoppage Frequency Checker Medical Oncology 05/12/21 Jonh Junior MD [address] [place] [address] Referring Physician Cardiology 09/05/23 documented as of this encounter
--- OUTSIDE RECORDS SUMMARY | 2025-08-12 14:43 | XMS_ITS | Encounter Summary ---
Author Organization [facility] Address [address] [place] [address] Care Team Providers Care Furniture Assembler And Installer Name Role Phone Olivia Foss MD Primary Care Provider Unavailable Encounter Details Date Type Department Care Team (Late st Contact Info) Description 02/19/2020 Lab Requisition [facility] DermPath Lab [address] [facility] [place] [address] Yumiko Dykes MD [address] [facility] [address] [place] [address] Social History Tobacco Use Types Packs/Day Years Used Date Smoking Tobacco: Never Assessed Comments Unknown Sex and Gender Information Value Date Recorded Sex Assigned at Not on file 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 Gender Identity Not on file Sexual Orientation Not on file documented as of this encounter Plan of Treatment Not on file documented as of this encounter Procedures Procedure Name Priority Date/Time Associated Diagnosis Comments DERMATOPATHOLOGY Routine 02/18/2020 12:0 0 AM CDT documented in this encounter Results * DERMATOPATHOLOGY (02/18/2020 12:00 AM CDT) Case Report Dermatopathology Report Case: [id number] Authorizing Provider: Yumiko Dykes MD Collected: 02/18/2020 12:00 AM Ordering Location: [facility] DermPath Lab Received: 02/19/2020 08:29 [...] specimen consists of a shave biopsy measuring 75h1d8gn, bisected. Jar 0+. 0 2:31 PM CDT [...] characteristic determined by the Dermatopathology Laboratory at [facility], directed by Dr. Kwame Agrawal. These tests need not be, and therefore are not, approved by the [place] Food and Drug Administration. The tests are used for clinical purposes. Billing Codes Specimen Charges Stain Charges 37554 1 0 2:31 PM CDT DERMATOPATHOLOGY LABORATORY Embedded Images 0 2:31 PM CDT DERMATOPATHOLOGY LABORATORY Pathology/Cytolog y TISSUE SPECIMEN FROM SKIN / Unknown 02/18/2020 02/19/2020 8:29 AM CDT us Yumiko Dykes MD LAB - PATHOLOGY/CYTOLOGY ORD ERABLES Final Result DERMATOPATHOLOGY LABORATORY [facility] - Department of Dermatology [facility] [address], [facility] [phone] documented in this encounter Visit Diagnoses Not on filedocumented in this encounter Care Teams Furniture Assembler And Installer Relationship Specialty Start Date End Date Olivia Foss MD PCP - General 02/05/19 documented as of this encounter
--- OUTSIDE RECORDS SUMMARY | 2025-08-12 14:43 | XMS_ITS | Encounter Summary ---
Author Organization [facility] Address [address] [place] [address] Care Team Providers Care Knife Machine Operator Name Role Phone Ashlee Doyle MD Primary Care Provider [phone] Randi Barney MD Unavailable Miscellaneous, Not In File Unavailable Unava ilable Sheryl Latham MD Unavailable Jonh Junior MD Primary Care Provide r Ashlee Doyle MD Primary Care Provider [phone] Jonh Junior MD Unavailable Encounter Details Date Type Department Care Team (Late st Contact Info) Description 03/31/2021 Telephone [facility] [address] [place] [address] Kindra Mir, RT Social History Tobacco Use Types Packs/Day Years Used Date Smoking Tobacco: Never Smokeless Tobacco: Never Alcohol Use Standard Drinks/Week Comments Yes 0 (1 standard drink = 0.6 oz pur e alcohol) Comments No Sex and Gender Information Value Date Recorded Sex Assigned at Not on file Legal 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 Female 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 Gender Identity Not on file Sexual Orientation Not on file Occupation Industry Job Start Date Job End Date retired Not on file Not on file Not on file documented as of this encounter Functional Status documented as of this encounter Plan of Treatment Not on file documented as of this encounter Visit Diagnoses Not on filedocumented in this encounter Additional Health Concerns Infection Onset Date Last Indicated Resolved Time COVID: Suspected 05/06/2021 05/06/2021 05/06/2021 9:52 AM CDT COVID: Suspected 01/05/2023 01/05/2023 01/05/2023 1:36 AM CDT COVID: Suspected 02/18/2025 02/18/2025 02/18/2025 5:50 PM CDT documented as of this encounter Care Teams Knife Machine Operator Relationship Specialty Start Date End Date Ashlee Doyle MD [address] [place] [address] PCP - General 02/09/18 08/24/23 Jonh Junior MD PCP - General Cardiology 08/25/23 09/04/23 Ashlee Doyle MD [address] [place] [address] PCP - General Internal Medicine 09/05/23 Randi Barney MD [address] [place] [address] Referring Physician Cardiology 03/12/21 08/24/23 Miscellaneous, Not In File 03/24/21 Sheryl Latham MD Medical Oncologist/Fountain Brush Assembler Medical Oncology 05/12/21 Jonh Junior MD Referring Physician Cardiology 09/05/23 documented as of this encounter
--- OUTSIDE RECORDS SUMMARY | 2025-08-12 14:43 | XMS_ITS | Clinical Summary ---
Author Organization [facility] Address [address] [place] [address] Care Team Providers Care Application Systems Architect Name Role Phone Olivia Foss MD Primary Care Provider Unavailable Source Comments [facility],non-owned Affiliates and Associated Physician Practices is amultiple site organization consisting of ambulatory clinics and hospital sitesin [place], [place] and [place]. This disclosure is being madepursuant to the Care Everywhere program and may not contain all information available regarding this patient. 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
--- OUTSIDE RECORDS SUMMARY | 2025-08-12 14:43 | XMS_ITS | Clinical Summary ---
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 06/06/2018 Carotid bruit 06/06/2018 Carotid artery stenosis 08/29/2017 Osteoarthrosis 05/10/2017 Left bundle branch block 05/10/2017 Partial seizure with impaired consciousness 11/2015 Overview (02/25/2021): Partial seizure with impaired consciousness Transient cerebral ischemia 05/04/2016 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 Osteopenia 12/10/2013 Overview (02/25/2021): Osteopenia Mitral valve prolapse 12/10/2013 Overview (02/25/2021): Mitral valve prolapse Gastroesophageal reflux disease 12/10/2013 Overview (02/25/2021): GERD (gastroesophageal reflux disease) Degeneration of intervertebral disc of cervical region 12/10/2013 Overview (02/25/2021): DDD (degenerative disc disease), cervical Essential hypertension 12/10/2013 Overview (02/25/2021): Hypertension 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 Overview (02/25/2021): Arnold-Chiari malformation Thrombosed external hemorrhoids 09/17/2011 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 Hyperlipidemia 07/24/2010 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 Immunizations Immunization Administration Dates Next Due Fluzone High Dose - >Age 65 (Prefilled Syringe) 06/04/2017,05/21/2016,06/06/2015 Hepatitis A (Generic) 01/30/2008,01/30/2008,05/20 Hepatitis B (Generic: Adult) 01/30/2008,07/07/20 07,06/05/2007 Pneumococcal (Pneumovax 23) 05/21/2009, 9 Pneumococcal (Prevnar 13) 02/20/2015 Shingrix 03/29/2019 Td 06/19/2016 Tdap (Generic) 11/10/2012 Zoster (Zostavax) 44991 Unt/0.65Ml 03/29,09/21/2018,09/19/2013,2009 Family History Medical History Relation [...] on file Legal Sex Female 1:30 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 Gender Identity Not on file Sexual Orientation Not on file Last Filed Vital Signs Vital Sign Reading Time Taken Comments Blood Pressure 140/62 08/21/2020 1:18 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 Pulse 97 08/21/2020 1:18 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 Temperature - - Respiratory Rate - - Oxygen Saturation - - Inhaled Oxygen Concentration - - Weight 67.5 kg (148 lb 12.8 oz) 08/21/2020 1:18 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 Height 165.1 cm (5' 5) 08/21/2020 1:18 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 Body Mass Index 24.76 08/21/2020 1:18 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 Plan of Treatment Health Maintenance Due Date Last Done Comments ASCVD LDL 1937 ASCVD Statin 1937 Annual Medicare Wellness Visit 2002 RSV Immunization or 60+ Years (1 - 1-dose 75+ series) 2012 Zoster Vaccines (3 of 3) 05/24/2019 019, 03/29/2019, 09/21/2018, Additional history exists COVID-19 Vaccine ( - 2024- season) 2025 Influenza Adult (#1) 2025 06/04/2017, 05/21/2016, 06/06/2015 DTaP, Tdap and Td Vaccines (3 - Td or Tdap) 06/19/2026 06/19/2016, 11/10/2012 Hepatitis A Vaccines Completed 01/30/2008, 01/30/2008, 06/05/2007 Pneumococcal Vaccine: 50+ Years Completed 02/20/2015, 05/21/2009, 11/10/2008 Meningococcal B Vaccine Aged Out No l onger eligible based on patient's age to complete this topic Meningococcal Vaccine Aged Out No aric rudi eligible based on patient's age to complete this topic RSV Immunizations Under 20 Months Aged Out No longer eligible based on patient's age to complete this topic Insurance MEDICARE Member Subscriber Plan / Payer (Ef fective 2019-Present) Name:Art Agustina A Relation to Subscriber:Self Name:Agustina Arias Payer ID:Not on file Group ID:Not on file Type:Indemnity Address: ATTN CLAIMS [address] MEDICARE Care Teams Matrix Drier Tender Relationship Specialty Start Date End Date Ashlee Doyle MD PCP - General INTERNAL MEDICINE 02/18/20 Melvin Pedraza MD [address] [address] Referring Physician VASCULAR SURGERY 02/18/20
--- OUTSIDE RECORDS SUMMARY | 2025-08-12 14:43 | XMS_ITS | Encounter Summary ---
Author Organization [facility] Address [address] [facility] [place] [address] Care Team Providers Care Testing And Regulating Technician Name Role Phone Olivia Foss MD Primary Care Provider Unavailable Encounter Details Date Type Department Care Team (Late st Contact Info) Description 04/09/2019 Lab Requisition [facility] Care DermPath Lab [address] [facility], [place] [address] Olivia Fernandez MD [address] [facility] [address] [place] [address] Social History Tobacco Use Types Packs/Day Years Used Date Smoking Tobacco: Never Assessed Comments Unknown Sex and Gender Information Value Date Recorded Sex Assigned at Not on file 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 Previous Bx: [id number]. 3:47 PM CDT DERMATOPATHOLOGY LABORATORY Gross Description Specimen A: Received is one formalin filled container labeled with the patient's name and designated left fa. The specimen consists of a non-oriented ellipse of skin measuring [id number]. The epidermal surface is unremarkable. The margin [...] purposes. Billing Codes Specimen Charges Stain Charges [id number] 1 3:47 PM CDT DERMATOPATHOLOGY LABORATORY Embedded Images 3:47 PM CDT DERMATOPATHOLOGY LABORATORY Pathology/Cytolog y TISSUE SPECIMEN FROM SKIN / Unknown 04/06/2019 04/09/2019 6:40 AM CDT Olivia Fernandez MD LAB - PATHOLOGY/CYTOLOGY OR DERABLES Final Result DERMATOPATHOLOGY LABORATORY [facility] - Department of Dermatology [address] [facility], 5th [place] [address], [facility] [phone] documented in this encounter Visit Diagnoses Not on filedocumented in this encounter Care Teams Testing And Regulating Technician Relationship Specialty Start Date End Date Olivia Foss MD PCP - General 02/05/19 documented as of this encounter
[2025-08-12 16:16] LABS: Hematocrit 26.2 % (37.0-47.0); Hemoglobin 7.8 g/dL (12.0-15.0); Immature Granulocyte Percent A 0.1 % (0-0.5); Lymphocytes Absolute Auto 2.65 K/mm3 (0.9-3.2); Mean Corpuscular HGB Conc 29.8 g/dl (32-36); Mean Corpuscular Hemoglobin 24.1 pg (26-34); Mean Corpuscular Volume 81.1 fl (80-100); Nucleated Red Blood Cells Absolute Auto 0.000 K/mm3 (0.0-0.012); Nucleated Red Blood Cells Perc 0.0 % (0.0-0.2); Platelet Count Result 180 k/mm3 (150-375); Red Blood Count 3.23 M/mm3 (4.2-5.4); White Blood Count 6.7 K/mm3 (4.5-10.0)
[2025-08-12 16:28] LABS: Alanine Aminotransferase 13 U/L (6-35); Albumin Level 4.0 g/dL (3.5-5.1); Alkaline Phosphatase 77 U/L (38-126); Anion Gap 7 mmol/L (4-12); Aspartate Amino Transferase 25 U/L (14-36); Bilirubin,Total 0.5 mg/dL (0.2-1.3); Blood Urea Nitrogen 17 mg/dL (7-17); Calcium 9.0 mg/dL (8.4-10.2); Carbon Dioxide 23 mmol/L (22-30); Chloride 99 mmol/L (98-107); Estimated CRCL calculation 28 ml/min; Estimated Glomerular Filt Rate 49; Glucose 91 mg/dL (65-110); Potassium 4.5 mmol/L (3.4-5.0); Sodium 129 mmol/L (137-145); Total Protein 6.4 g/dL (6.3-8.2)
[2025-08-12 16:36] LABS: NT Pro B Type Natriuretic Pept 2230 pg/mL (19.9-100)
[2025-08-12 16:39] LABS: Band Neutrophils Percent 0 % (0-6); Schistocytes None Seen
[2025-08-12 16:40] LABS: Hypochromasia 1+
[2025-08-12 16:41] LABS: Anisocytosis 2+
[2025-08-12 16:54] LABS: Influenza A QL RT-PCR Negative (Negative); Influenza B QL RT-PCR Negative (Negative); RSV RNA, RT-PCR Negative (Negative); SARS-CoV-2 RNA PCR Negative (Negative)
[2025-08-12 18:27] LABS: INR 1.2; Partial Thromboplastin Time 26.1 Seconds (22.3-36.8); Prothrombin Time 15.4 Seconds (11.1-14.7)
--- OUTSIDE RECORDS SUMMARY | 2025-08-12 18:37 | XMS_ITS | Continuity of Care Document ---
Author Organization [place] - [employer] Address [address] [place] [address] Care Team Providers Care Project Account Manager Name Role Phone ASHLEE DOYLE Primary Care Provider Assessment Encounter Date Assessment Date Assessment LastModified by Organization Details LastModified Time 07/09/2025 07/09/2025 Patient presente d to office [...] reduce health risks and promote healthy living. [email or web address] Not available 07/09/2025 11:38:59 Plan of Treatment [...] panel w/ direct LDL, serum 2024 025 [facility], [address] [place], [address], 07/23/2025 05:34:31 CMP, serum or plasma 2024 025 [facility], [address] [place], [address], 07/23/2025 05:34:31 CBC w/ auto diff 2024 [facility], [address] [place], [address], 07/23/2025 05:34:31 iron panel, serum or plasma 2024 [facility], [address] [place], [address], 07/21/2025 17:43:33 vitamin B12 + folate, serum or blood 2024 [facility], [address] [place], [address], 07/21/2025 17:43:33 pro BNP (pro B-type natriuret ic peptide), serum or plasma 2024 [facility], [address] [place], [address], 07/21/2025 17:43:32 Referral None recorded. Procedures None recorded. Surgeries None recorded. Imaging XR, cervical spine, 2 or 3 view 2024 [facility]), [address] [place], [address], 07/19/2025 12:24:31 US, duplex, carotid artery 2024 [facility], [address], [place], [address], 07/09/2025 17:47:54 Medication Orders polysacch aride iron complex 150 mg iron capsule 2024 [facility] [id number] [facility], [address] [place], [address], 07/09/2025 12:37:22 cyanocoba reggie (vit B-12) 1,000 mcg sublingua l tablet 2024 025 [id number], [address] [place], [address], 07/09/2025 12:37:22 Patient TargetsNo targets recorded. Patient Instructions Encounter Date Encounter Id Patient Instructions Last Modified By Organization Details Last Modified Time 07/09/2025 [id number] Peripheral Arterial Disease (PAD): Care Instructions [facility] Not available 07/09/2025 12:37:17 (RANGEL) ankle brachial index* ESTEFANIA Not available 07/09/2025 17:47:49 mammogram: about this test [facility] Not available 07/09/2025 12:37:17 neck pain: care instructions [facility] Not available 07/09/2025 12:37:17 learning about healthy weight [facility] Not available 07/09/2025 12:37:17 anemia: care instructions [facility] Not available 07/09/2025 12:37:17 carotid stenosis : care instructions [facility] Not available 07/09/2025 12:37:17 heart failure: care instructions [facility] Not available 07/09/2025 12:37:16 learning about heart failure [facility] Not available 07/09/2025 12:37:17 Reason for Referral None Reported. Results Created Date Observation Date Name Description Value Unit Range Abnormal Flag Note LastModifiedBy Organization Detail LastModifiedTime 07/09/2007/09/2025 US, jennifer x, juan id arter y No observ ation record ed. [facility], [facility] [address], [place], [address], 07/09/2025 17:47:54 07/19/2007/19/2025 XR, cervi clay spine , 2 or 3 view No observ ation record ed. [facility] [address] [place], [address], 07/23/2025 13:26:58 08/12/20 25 08/12/2025 XR, chest , 2 view No observ ation record ed. [facility] [address], [place], [address], 08/12/2025 17:35:40 Result Notes None recorded. Problems Name Problem SNOMED Code Status Onset Date Resolution Date Notes Provider Name and Address Organization Details Recorded Time Benign hypertens ion 83899936 Active 2016 Not Available [facility] 3 14:49:31 Hyperlipi demia 80785254 Active 2016 Not Available [facility] 3 14:49:31 Hemorrhoi ds 57850641 Active 2016 Not Available [facility] 3 14:49:31 Left bundle branch block 70091787 Active 2016 sees cardiolog y once a year Not Available [facility] 3 14:49:31 Osteopeni a 458070945 Active 2016 Not Available [facility] 3 14:49:31 Osteoarth ritis 467851925 Active 2016 Not Available [facility] 3 14:49:31 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 Not Available [facility] 3 14:49:31 Transient cerebral ischemia 406743854 Active 2016 Not Available [facility] 3 14:49:31 Allergic rhinitis 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 26685720 Active 2016 Not Available [facility] 3 14:49:31 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 178796216 Active 2016 Not Available [facility] 3 14:49:31 Carotid artery stenosis 19478710 Active 2016 Not Available [facility] 3 14:49:31 Focal onset epileptic seizure 70040155 Active 2017 Not Available [facility] 3 14:49:31 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 207518765 Active 2017 Not Available [facility] 3 14:49:31 History of Malignant melanoma 555687113 Active 2018 Not Available [facility] 3 14:49:31 Gastroeso phageal reflux disease without esophagit is 498899220 Active 2018 Not Available [facility] 3 14:49:31 Ophthalmi c migraine 64784578 Active 2018 on ophth note 07/24/19 Not Available [facility] 3 14:49:31 Open-angl e glaucoma of left eye 727111241 Active 2018 on ophth note 07/24/19 Not Available [facility] 3 14:49:31 Idiopathi c periphera l neuropath y 95976986 Active 2019 Not Available [facility] 3 14:49:31 Family history of diabetes mellitus 787087079 Active 2019 Not Available [facility] 3 14:49:31 Neoplasm of supraclav icular region 728312291 Active 2020 Not Available [facility] 3 14:49:31 Hyponatre kasandra 43771993 Active 2020 Not Available [facility] 3 14:49:31 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, face AND/OR neck 84041397 Active 2020 Not Available [facility] 3 14:49:31 Coronary arteriosc lerosis 53623893 Active 2020 non occlusive per cardiolog y note 06/11/21 Not Available [facility] 3 14:49:31 Paroxysma l atrial fibrillat ion 406309866 Active 2020 Not Available [facility] 3 14:49:31 Diffuse high grade B-cell lymphoma 935572856 Active 2020 Not Available [facility] 3 14:49:31 Macrocyto sis 338666289 Active 2020 Not Available [facility] 3 14:49:31 History of SARS-CoV- 2 53563667638 2501291 Active 2021 Not Available [facility] 3 14:49:31 Long-term drug therapy Active 2021 Not Available [facility] 3 14:49:31 Increased frequency of urination 516094914 Active 2021 Not Available [facility] 3 14:49:31 Vitamin B deficienc y 37532300 Active 2022 Not Available [facility] 3 14:49:31 Mixed urinary incontine nce 194195973 Active 2022 Not Available [facility] 3 14:49:31 Hypomagne semia 467649924 Active 2022 Not Available [facility] 3 14:49:31 Mixed hyperlipi demia 260481497 Active 2022 Not Available [facility] 3 14:49:31 Insomnia 447023650 Active 2022 Not Available [facility] 3 14:49:31 Periphera l vascular disease 486178440 Active 2022 MD Aurelia Galeano[address], [address] , [facility] 3 11:47:35 Anemia 440914604 Active 2023 MD Kane Galeano [address], [facility] [address] , [facility] 4 22:05:29 Body mass index less than 20 900097245 Active 2023 MD Kane Galeano [address], [facility] [address] , [facility] 4 11:56:56 Dysphagia 73278060 Active 2023 MD Kane Galeano [address], [place], [address] , [facility] 4 14:14:25 Mild memory disturban ce 755887845 Active 2023 MD Kane Galeano [address], [place], [address] , [facility] 4 13:46:21 Congestiv e heart failure 72682550 Active 2023 Ashlee Doyle MD [address], [place], [address] , [facility] 4 12:20:10 Iron deficienc y anemia 97881434 Active 2023 Ashlee Doyle MD [address], [place], [address] , [facility] 4 12:22:31 Left bundle branch block 51522335 Active 2023 MD Kane Galeano [address], [place], , [facility] 4 12:26:56 Stasis dermatiti s 57379447 Active 2023 MD Kane Galeano [address], [place], [address] , [facility] 4 12:34:37 Fungal esophagit is 339961013 Active 2023 Ashlee Doyle MD [address], [place], [address] , [facility] 4 17:34:02 CT of abdomen abnormal 47001197778 646094 Active 2024 Ashlee Doyle MD [address], [place], [address] , [facility] 5 20:40:35 Prediabet es 889660654 Active 2024 Dxed by A1c 6.2% on 10/23/24 MD Kane Galeano [address], [place], , [facility] 5 21:01:29 Primary insomnia 5749952 Active 2024 MD Kane Galeano [address], [place], [address] , [facility] 5 18:49:04 Problem Notes None recorded. Procedures Surgical History Date Name Laterality Status Provider Name and Address Organization Details Recorded Time Partial Hysterectomy completed Ashlee Doyle MD [address], [place], [address], [facility] 05/10/2017 15:03:45 Imaging Results None recorded. Procedure Notes None recorded. Medical Equipment None Reported. Allergies Allergen ID Allergen Name Allergen Category Reaction Reaction Severity Criticality Documentation Date Start Date Code Code System Note Provider Name and Address Organization Details Recorded Time 32974 solifenac in medicatio n dry mouth Not available Not available 10/12/2022 49194 7 RxNorm Not Available [facility] 3 14:49:32 82750 sulfur dioxide medicatio n facial swelling Not available Not available 01/11/2025 97796 79 RxNorm Not Available [employer] - External Data Service - prod 5 10:56:21 5921 Substance with sulfonami de structure and antibacte rial mechanism of action (substanc e) medicatio n other Not available Not available 05/10/2017 38982 8003 SNOMED swell ing Ashlee Doyle MD [address], [place], [address], [facility] 7 15:03:33 Medications Name Sig Start Date [...] Available Not Available Not Available Fluzone High-Dose 3055-1137 (PF) 180 mcg/0.5 mL intramuscul ar syringe [...] Available Vitals Date Recorded Body height Body temperature Body mass index (BMI) Body weight Respiratory rate Heart rate Systolic And Diastolic Provider Name and Address Organization Details Last Updated DateTime 5 167.64 cm 98.7 [degF] 18.2 kg/m2 02714.9 4 g 18 /min 80 /min 128/52 mm[Hg] Migdalia Peraza [facility] 5 11:48:39 Social History Question Answer Notes LastModified by Organizat ion Details LastModified Time Tobacco Smoking Status Never Smoker Ashlee Doyle MD [address], [place], [address], [facility] 05/10/2017 15:11:55 What Is Your Level Of [...] Alone Information not available 05/10/2017 Marital Status [facility] Informatio n not available 05/10/2017 What Was The Date Of Your Most Recent Tobacco Screening? 07/09/2022 [email or web address] Information not available 07/09/2022 Mother With HIV? [...] preservative 8 completed MD Kane Galeano [address], [place], [address], [facility] 06/12/2023 16:15:07 zoster recombinant 9 completed MD Kane Galeano [address], [place], [address], [facility] 06/12/2023 16:15:07 zoster live 9 completed MD Kane Galeano [address], [place], [address], [facility] 06/12/2023 16:15:08 zoster live 9 MD Kane Julian [address], [place], [address], [facility] 06/12/2023 16:15:08 Influenza, split virus, quadrivalent, preservative 9 completed MD Kane Galeano [address], [place], [address], [facility] 06/12/2023 16:15:07 Influenza, split virus, quadrivalent, preservative 0 completed MD Kane Galeano [address], [place], [address], [facility] 06/12/2023 16:15:07 SARS-COV-2 (COVID-19) vaccine, UNSPECIFIED 1 completed MD Kane Galeano [address], [place], [address], [facility] 06/12/2023 16:15:07 COVID-19, mRNA, LNP-S, PF, 30 mcg/0.3 mL dose 1 completed MD Kane Galeano [address], [place], [address], [facility] 06/12/2023 16:15:07 Influenza, split virus, quadrivalent, preservative 1 completed MD Kane Galeano [address], [place], [address], [facility] 06/12/2023 16:15:07 COVID-19, mRNA, LNP-S, PF, 30 mcg/0.3 mL dose 2 completed MD Kane Galeano [address], [place], [address], [facility] 06/12/2023 16:15:07 Influenza, high-dose, quadrivalent, PF 2 completed MD Kane Galeano [address], [place], [address] [place] [address], [facility] 06/12/2023 16:15:07 Influenza, MDCK, quadrivalent, PF 3 completed MD Kane Galeano [address], [place], [address] [place] [address], [facility] 06/12/2023 16:15:07 RSV, recombinant, protein subunit RSVpreF, adjuvant reconstituted, 0.5 mL, PF 3 completed MD Kane Galeano [address], [place], [address] [place] [address], [facility] 06/12/2023 16:15:07 COVID-19, mRNA, LNP-S, PF, nicole-sucrose, 30 mcg/0.3 mL 3 completed MD Kane Galeano [address], [place], [address] [place] [address], [facility] 06/12/2023 16:15:07 COVID-19, mRNA, LNP-S, PF, nicole-sucrose, 30 mcg/0.3 mL 4 completed MD Kane Galeano [address], [place], [address], [facility] 06/01/2024 14:33:16 COVID-19, mRNA, LNP-S, PF, nicole-sucrose, 30 mcg/0.3 mL 4 completed MD Kane Galeano [address], [place], [address] [place] [address], [facility] 06/01/2024 14:33:16 Influenza, high-dose, trivalent, PF 4 completed MD Kane Galeano [address], [place], [address] [place] [address], [facility] 06/01/2024 14:33:16 COVID-19, mRNA, LNP-S, PF, nicole-sucrose, 30 mcg/0.3 mL 5 completed MD Kane Galeano [address], [place], [address] [place] [address], [facility] 12/26/2024 19:01:03 COVID-19, mRNA, LNP-S, bivalent, PF, 10 mcg/0.2 mL 5 completed Roxnaa Fernandez null, [facility] 06/27/2025 14:45:22 influenza, unspecified formulation 5 completed Roxana Fernandez null, [facility] 06/27/2025 14:46:36 Pneumococcal conjugate PCV20, polysaccharide WNO325 conjugate, adjuvant, PF 5 completed Lashon Gagnon null, [facility] 08/03/2025 19:14:26 Td(adult) unspecified formulation 6 completed MD Kane Galeano [address], [place], [address], [facility] 06/12/2023 16:15:07 Influenza, split virus, quadrivalent, preservative 6 completed MD Kane Galeano [address], [place], [address], [facility] 06/12/2023 16:15:07 Influenza, split virus, quadrivalent, preservative 7 completed MD Kane Galeano [address], [place], [address], [facility] 06/12/2023 16:15:07 Pneumococcal conjugate PCV 13 5 completed MD Kane Galeano [address], [place], [address], [facility] 06/12/2023 16:15:08 pneumococcal polysaccharide PPV23 9 completed MD Kane Galeano [address], [place], [address], [facility] 06/12/2023 16:15:07 zoster live 0 completed MD Kane Galeano [address], [place], [address], [facility] 06/12/2023 16:15:08 Hep B, unspecified formulation 8 completed MD Kane Galeano [address], [place], [address], [facility] 06/12/2023 16:15:08 Hep A, adult 8 completed Ashlee Doyle MD [address], [place], [address], [facility] 06/12/2023 16:15:08 Past Encounters Encounter ID Performer Location Encounter Start Date Encounter Closed Date Diagnosis/Indication Diagnosis SNOMED-CT Code Diagnosis ICD10 Code Diagnosis IMO Codes Diagnosis Note [id number] Ashlee Doyle MD [facility], [facility] [address] [place] [address] 07/09/2025 11:34:48 07/09/2025 12:47:12 Benign hypertension 12253668 I10 - good control- BP 2 weeks- seen ophth 06/2025 per pt- last EKG 04/02/25 Congestive heart failure 33122741 I50.9 - last ECHO 10/2023 , EF 45%- resolved Paroxysmal atrial fibrillation 586288811 I48.0 - cardiology had holter ,- anita score 4-5- anticoagul ation safty education Peripheral vascular disease 091237956 I73.9 - per cardiology note 01/21/23 Carotid ar petar stenosis 15957533 I65.29 - last U/S 10/12/22 per pt Mixed hyperlipidemia 267 867827 E78.2 - last LDL 10/23/24 Neck pain 96530431 M54.2 50754 Prediabetes 097359843 R7 3.03 - last A1c 04/16/25 Body mass index less than 20 979507345 Z68.1 education Vitamin B deficiency 479 12705 E53.9 b12 06/21/23 Hypomagnesemia 719295118 E83.42 - last level 04/16/25 Anemia 928028109 D64.9 Screening mammography 771710 Z12.31 1663597251 per pt had mammogram 04/16/25 Screening for malignant neoplasm of cervix 291196530 Z12.4 488959 per pt had PAP 06/2023 Screening for malignant neoplasm of colon 348129087 Z12.11 509186 last C scope 11/06/13 , no polyp Immunization due 2664808 08 Z23 4079957 up to date Health Concerns Section Related Observation LastModified by Organization Detai ls LastModified Time None Recorded Concern Status LastModified by Organization Details LastModified Time None Recorded Payers Encounter Date Sequence Insurance Name Policy Number Policy Tai Covered Member ID Tai Member ID Guarantor Name 07/09/2025 2 [place] 104 Agustina Cordova [id number] Agustina Art 07/09/2025 1 [place] Agustina Cordova [id number] Agustina Art Notes Date Note Type Note Provider Name and Address Organization Details Recorded Time 07/09/2025 text/html Hypertension F/UReported by PatientHPIFor medications, patient reportstaking medications as directedandno side effects from medication. For lifestyle, patient reportsregular exercise,limiting/av oiding salt, andcompliant with low salt diet. For associated symptoms, patient reportsno dizziness,no lightheadedness,no chest pain,no shortness of breath,no palpitations,no edema,no calf pain with exertion, andno headache. Ashlee Doyle MD [address], [place], [address], [facility] 07/09/2025 12:40:58 OBGyn Episode No OBEpisode recorded.
--- OUTSIDE RECORDS SUMMARY | 2025-08-12 18:37 | XMS_ITS ---
Author Organization [facility] Address [address] [place] [address] Care Team Providers Care Detective Bureau Chief Name Role Phone Miscellaneous, Not In File Unavailable Unava ilable Sheryl Latham MD Unavailable [phone] Ashlee Doyle MD Primary Care Provider [phone] Jonh Junior MD Unavailable Active Problems Problem [...] ready for that. 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 Asked patient to bring notes or forward prior to next visit. Follows with Dr. Izaguirre at [facility]. 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
--- OUTSIDE RECORDS SUMMARY | 2025-08-12 18:37 | XMS_ITS | Clinical Summary ---
Author Organization [facility] Address [address] [place] [address] Care Team Providers Care Brickmason Apprentice Name Role Phone Miscellaneous, Not In File Unavailable Unava ilable Sheryl Latham MD Unavailable [phone] Ashlee Doyle MD Primary Care Provider [phone] Jonh Junior MD Unavailable [phone] Allergies Active Allergy Reactions Criticality Noted Date [...] ready for that. 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 Asked patient to bring notes or forward prior to next visit. Follows with Dr. Izaguirre at [facility]. 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 06/06/2018 Assessment & [...] Department Care Team Description 06/30/2025 Results Follow-Up [facility] Medicine Cardiology [address] [facility] Floor 1, [address] [place] [address] John Junior MD Pulmonary Function Test - 06/21/2025 Telephone [facility] Medicine Cardiology [address] [facility] 8th [place] [address] [place] [address] Jonh Junior MD 06/20/2025 11:45 AM CDT Office Visit [facility] Medicine Oncology [address] [facility] Floor 6 [place] [address] Yulia Nolasco NP 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) 06/20/2025 11:15 AM CDT Lab [facility] - Lab Collection [address] [facility] Floor 6 [place] [address] 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) 06/20/2025 10:45 AM CDT Lab [facility] Medicine Oncology Lab [address] [facility] Floor 6 [place] [address] 06/20/2025 Telephone [facility] Medicine Cardiology [address] [facility] 8th [place] [address] [place] [id number] Aliza Brown 06/19/2025 Telephone [facility] Medicine Cardiology [address] [facility] 8th [place] [address] [place] [id number] Jonh Junior MD 06/17/2025 11:45 AM CDT Office Visit [facility] Medicine Cardiology [address] [facility] Floor 1, [address] [place] [phone] Jonh Junior MD 06/17/2025 9:46 AM CDT - 06/17/2025 11:59 PM CDT Hospital Encounter [facility] Medicine PFT Lab [address] [facility] Floor 1, [address] [place] [id number] Ischemic cardiomyopathy; Essential hypertension; On amiodarone therapy Discharge Disposition: Discharge to home or self care 05/19/2025 Telephone [facility] [address] [place] [address] Alexandr Parham MD from Last 3 Months Immunizations Immunization Administration Dates Next Due COVID-19 mRNA (E[employer]ark) 0.3 m L (30 mcg) vaccine (12 [...] on file Legal Sex Female 2:10 AM MANAGING PRINCIPAL Gender Identity Not on file Sexual Orientation [...] MD LAB BLOOD ORDERABLES Final Re sult [facility] [place] [address] * (ABNORMAL) Differential, auto (06/20/2025 11:29 AM CDT) Pathologist [facility] Neutrophil abs 3.79 1.50 - 6.50 K/cumm Comment:Testing performed by : [facility], [address] [place] [phone] Lymphocyte abs 1.88 0.80 - 3.30 K/cumm BENJAMIN SETH Comment:Testing performed by : [facility], [address] [place] [phone] Monocyte abs 0.97(H) 0.20 - 0.80 K/cumm [facility] Comment:Testing performed by : [facility], [address] [place] [phone] Eosinophil abs 0.13 0.00 - 0.50 K/cumm [facility] Comment:Testing performed by : [facility], [address] [place] [phone] Basophil abs 0.05 0.00 - 0.10 K/cumm CERNER [facility] Comment:Testing performed by : [facility], [address] [place] [phone] Neutrophil pct 55.6 % C[facility]ER [facility] Comment: Interpretive Data Percent cell count reference ranges are not reported, since discordance with absolute values may lead to misinterpretation of CBC data. Current Interpretive Data was last revised on 2017. Testing performed by: [facility], [address] [place] [phone] Lymphocyte pct 27.6 % CERNER [facility] Comment: Interpretive Data Percent cell count reference ranges are not reported, since discordance with absolute values may lead to misinterpretation of CBC data. Current Interpretive Data was last revised on 2017. Testing performed by: [facility], [address] [place] [phone] Monocyte pct 14.2 % C[facility]ER [facility] Comment: Interpretive Data Percent cell count reference ranges are not reported, since discordance with absolute values may lead to misinterpretation of CBC data. Current Interpretive Data was last revised on 2017. Testing performed by: [facility], [address] [place] [phone] Eosinophil pct 1.8 % [facility] Comment: Interpretive Data Percent cell count reference ranges are not reported, since discordance with absolute values may lead to misinterpretation of CBC data. Current Interpretive Data was last revised on 2017. Testing performed by: [facility], [address] [place] [phone] Basophil pct 0.7 % [facility] Comment: Interpretive Data Percent cell count reference ranges are not reported, since discordance with absolute values may lead to misinterpretation of CBC data. Current Interpretive Data was last revised on 2017. Testing performed by: [facility], [address] [place] [phone] Blood 06/20/2025 11:2 9 AM CDT 06/20/2025 11:37 AM CDT us Sheryl Latham MD LAB BLOOD ORDERABLES Final Re sult [facility] Department [place] [address] * (ABNORMAL) CBC with auto differential (06/20/2025 11:29 AM CDT) WBC 6.81 3.80 - 9.90 K/cumm Comment:Testing performed by : [facility], [address] [place] [address] Hgb 8.4(L) 11.9 - 15.5 g/dL C[facility]ER [facility] Comment:Testing performed by : [facility], [address] [place] [address] Hct 26.3(L) 35.6 - 45.5 % [facility] Comment:Testing performed by : [facility], [address] [place] [address] Plt 180 150 - 400 K/cumm C[facility] Comment:Testing performed by : [facility], [address] [place] [address] MPV 6.9 6.8 - 10.4 fL [facility] Comment:Testing performed by : [facility], [address] [place] [address] RBC 3.22(L) 3.90 - 5.20 M/cumm [facility] Comment:Testing performed by : [facility], [address] [place] [address] MCV 81.5 81.3 - 96.4 fL [facility] Comment:Testing performed by : [facility], [address] [place] [phone] MCH 25.9(L) 27.1 - 33.3 pg [facility] Comment:Testing performed by : [facility], [address] [place], [place] [phone] MCHC 31.8(L) 32.3 - 35.7 g/dL [facility] Comment:Testing performed by : [facility], [address] [place], [place] [phone] RDW CV 15.3(H) 11.1 - 14.9 % [facility] Comment:Testing performed by : [facility], [address] [place] [address] NRBC abs 0.00 0.00 - 0.01 K/cumm [facility] Comment:Testing performed by : [facility], [address] [place], [place] [phone] Blood 06/20/2025 11:2 9 AM CDT 06/20/2025 11:37 AM CDT Sheryl Latham MD LAB BLOOD ORDERABLES Final Re sult Performing Organization Address City/[facility]/ZIP Co de Phone Number [facility] Department [place] [address] * Lactate dehydrogenase (LD) (06/20/2025 11:29 AM CDT) Pathologist [facility] Lactate dehydrogenase (LDH) 221 100 - 250 Units/L Blood 06/20/2025 11:2 9 AM CDT 06/20/2025 11:37 AM CDT Sheryl Latham MD LAB BLOOD ORDERABLES Final Re sult [facility] [place] [address] * (ABNORMAL) Comprehensive metabolic panel (06/20/2025 11:29 AM CDT) Pathologist [facility] Sodium 136 135 - 145 mmol/L Potassium, pl 4.8 3.3 - 4.9 mmol/L [facility] Chloride 102 97 - 110 mmol/L [facility] CO2 25 22 - 32 mmol/L [facility] Anion gap 9 2 - 15 mmol/L [facility] BUN 23 6 - 25 mg/dL [facility] Creatinine 1.16(H) 0.60 - 1.10 mg/dL [facility] Glucose 86 70 - 199 mg/dL [facility] Comment: Interpretive Data Fasting glucose >/= 126 [...] 2022. Calcium 9.1 8.5 - 10.3 mg/dL [facility] Bilirubin, total 0.2 0.1 - 1.2 mg/dL [facility] Protein, pl 6.3(L) 6.5 - 8.5 g/dL [facility] Albumin 4.1 3.5 - 5.0 g/dL [facility] Alk phos 77 40 - 130 Units/L [facility] ALT 11 7 - 45 Units/L [facility] AST 20 10 - 45 Units/L [facility] Blood 06/20/2025 11:2 9 AM CDT 06/20/2025 11:37 AM CDT us Sheryl Latham MD LAB BLOOD ORDERABLES Final Re sult [facility] Department [place] [address] * Pulmonary Function Test - (06/17/2025 10:31 AM CDT) Pathologist [facility] FVC PRE 2.11 L [facility] FVC %PRE PRED 88 % [facility] FEV1 PRE 1.38 L [facility] FEV1 %PRE PRED 77 % [facility] FEV1/FVC PRE 65.3 % [facility] FRC PL PRE 2.72 L [facility] FRC PL %PRE PRED 94 % [facility] RV PRE 1.78 L [facility] RV %PRE PRED 70 % [facility] TLC PRE 3.91 L [facility] TLC %PRE PRED 78 % [facility] DLCO PRE 11.2 ml/min/mmH g [facility] DLCO %PRE PRED 63 % [facility] Anatomical Region Laterality Modality PFT 06/17/2025 9:53 AM CDT Narrative 06/20/2025 6:37 PM CDT continuous churn buttermaker amiodarone therapy, pft's for toxicity surveillance PFT performed at:->[facility] PUL PFT [id number] Procedure:->Standard Procedure:->Spirometry with Bronchodilator [...] and %HbO2 is age dependent. However, the [facility] Pulmonary Function Laboratory defines hypoxemia as a PaO2 <56 mm Hg or a %HbO2 <89%. Starting on September of 2024 the [facility] Pulmonary Function Laboratory utilizes race neutral GLI Global normative equations. Jonh Junior MD PFT ORDERABLES Final Result * BONE MINERAL DENSITY (04/05/2017) Anatomical Region Laterality Modality Radiographic Christi ging Narrative 04/05/2017 Ordered by an unspecified provider. Historical Provider IMG DXA PROCEDURES Final Result from Last 3 Months or Most Recently Relevant to Health Maintenance Insurance MEDICARE [facility] MEDICARE [facility] FEDERAL ANTHEM ACCESS CHOICE ANTHEM ACCESS MEDICARE [facility] Advance Directives For more information, please contact: [phone] * Full Code (Latest Code Status on [...] 4:54 AM 03/24/2021 6:20 PM Care Teams Brickmason Apprentice Relationship Specialty Start Date End Date Ashlee Doyle MD [address] [place] [address] PCP - General Internal Medicine 09/05/23 Miscellaneous, Not In File 03/24/21 Sheryl Latham MD Medical Oncologist/Value Stream Leader Medical Oncology 05/12/21 Jonh Junior MD [address] [place] [address] Referring Physician Cardiology 09/05/23
--- OUTSIDE RECORDS SUMMARY | 2025-08-12 18:37 | XMS_ITS | Encounter Summary ---
Author Organization [facility] Address [address] [place] [address] Phone Care Team Providers Care Cleaner Wall Name Role Phone Ashlee Doyle MD Primary Care Provider [phone] Cruz Lombardi MD Unavailable [phone] Encounter Details Date Type Department Care Team (Latest Contact Info) Description 08/05/2025 Results Follow-Up [facility] [address] [place] [address] Cruz Lombardi MD [facility] [address] [address] IRON W/ IRON BINDING CAPACITY [...] Assessment Author 130/62 08/05/2025 10:47 AM Ursula Dotson RMA * Temp Answer Date of Assessment Author 98 08/05/2025 10:47 AM Ursula Dotson RMA * Pulse Answer Date of Assessment Author 80 08/05/2025 10:47 AM FINISH GRINDER Brandon, Ursula A, RMA * Resp Answer Date of Assessment Author 18 08/05/2025 10:47 AM FINISH GRINDER Brandon, Ursula A, RMA * SpO2 Answer Date of Assessment Author 99 08/05/2025 10:47 AM FINISH GRINDER Brandon, Ursula A, RMA * Question Answer Date of Assessment Author Has the patient fallen twice in the past year without injury or once in the past year with injury? Yes 08/05/2025 10:54 AM FINISH GRINDER C onrad, Ursula A, RMA Does the patient report or d o you observe difficulty in gait or balance? No 08/05/2025 10:54 AM FINISH GRINDER Brandon, Ursula A, RMA * Question Answer Date of Assessment Author Initial Score 0 08/05/2025 10:54 AM FINISH GRINDER Con rad, Ursula A, RMA Little interest or pleasure in doing things Not at all 08/05/2025 10:54 AM FINISH GRINDER Brandon, Ursula A, RMA Feeling down, depressed, or hopeless Not at all 08/05/2025 10:54 AM FINISH GRINDER Brandon, Ursula A, RMA * Question Answer Date of Assessment Author Has the patient fallen twice in the past year without injury or once in the past year with injury? Yes 08/05/2025 10:54 AM FINISH GRINDER C onrad, Ursula A, RMA Does the patient report or d o you observe difficulty in gait or balance? No 08/05/2025 10:54 AM FINISH GRINDER Brandon, Ursula A, RMA * Question Answer Date of Assessment Author Initial Score 0 08/05/2025 10:54 AM FINISH GRINDER Con rad, Ursula A, RMA Little interest or pleasure in doing things Not at all 08/05/2025 10:54 AM FINISH GRINDER Brandon, Ursula A, RMA Feeling down, depressed, or hopeless Not at all 08/05/2025 10:54 AM FINISH GRINDER Brandon, Ursula A, RMA * Over the past 2 weeks, how often have you been bothered by any of the following problems? Question Answer Date of Assessment Author Patient Health Questionnaire -2 Score 0 08/05/2025 10:54 AM FINISH GRINDER Brandon, Ursula A, RMA documented as of this encounter Mental Status * BP Answer Entry Date Author 130/62 08/05/2025 10:47 AM FINISH GRINDER Brandon, Ursula A, RMA * Temp Answer Entry Date Author 98 08/05/2025 10:47 AM FINISH GRINDER Brandon, Ursula A, RMA * Pulse Answer Entry Date Author 80 08/05/2025 10:47 AM FINISH GRINDER Brandon, Ursula A, RMA * SpO2 Answer Entry Date Author 99 08/05/2025 10:47 AM FINISH GRINDER Brandon, Ursula A, RMA * Question Answer Entry Date Author Has the patient fallen twice in the past year without injury or once in the past year with injury? Yes 08/05/2025 10:54 AM FINISH GRINDER C onrad, Ursula A, RMA Does the patient report or d o you observe difficulty in gait or balance? No 08/05/2025 10:54 AM FINISH GRINDER Brandon, Ursula A, RMA * Question Answer Entry Date Author Initial Score 0 08/05/2025 10:54 AM FINISH GRINDER Con rad, Ursula A, RMA Little interest or pleasure in doing things Not at all 08/05/2025 10:54 AM FINISH GRINDER Brandon, Ursula A, RMA Feeling down, depressed, or hopeless Not at all 08/05/2025 10:54 AM FINISH GRINDER Brandon, Ursula A, RMA documented in this encounter Plan of Treatment Upcoming Encounters Date Type Department Care Team (Late st Contact Info) Description 08/19/2025 10:45 AM FINISH GRINDER [facility] [address] [address] Cruz Lombardi MD [address] [place] [phone] documented as of this encounter Visit Diagnoses Not on filedocumented in this encounter Care Teams Cleaner Wall Relationship Specialty Start Date End Date Ashlee Doyle MD [address] [place] [id number] PCP - General Internal Medicine 07/22/25 Cruz Lombardi MD [address] [place] [phone] Consulting Physician Oncology 07/24/25 documented as of this encounter
--- OUTSIDE RECORDS SUMMARY | 2025-08-12 18:37 | XMS_ITS | Clinical Summary ---
Author Organization [facility] Address [address] [place] [address] Phone Care Team Providers Care Director Of Services Name Role Phone Ashlee Doyle MD Primary Care Provider Cruz Lombardi MD Unavailable [phone] Allergies Active Allergy Reactions Criticality Noted Date [...] Department Care Team Description 08/05/2025 11:15 AM TENANT SELECTOR Lab [facility] [address] [phone] Lab, Cc [place] Anemia due to unknown mechanism 08/05/2025 10:30 AM TENANT SELECTOR Office Visit [facility] [address] [phone] Cruz Lombardi MD Anemia due to unknown mechanism (Primary Dx) 08/05/2025 Results Follow-Up [facility] [address] [phone] Cruz Lombardi MD IRON W/ IRON BINDING CAPACITY [...] Comments Blood Pressure 130/62 08/05/2025 10:47 AM TENANT SELECTOR Pulse 80 08/05/2025 10:47 AM TENANT SELECTOR Temperature 36.7 C (98 F) 08/05/2025 10:47 AM TENANT SELECTOR Respiratory Rate 18 08/05/2025 10:47 AM TENANT SELECTOR Oxygen Saturation 99% 08/05/2025 10:47 AM TENANT SELECTOR Inhaled Oxygen Concentration - - Weight 54.2 kg (119 lb 8 oz) 08/05/2025 10:47 AM TENANT SELECTOR Height 166.4 cm (5' 5.5) 08/05/2025 10:47 AM CS T Body Mass Index 19.58 08/05/2025 10:47 AM TENANT SELECTOR Plan of Treatment Upcoming Encounters Date Type Department Care Team (Late st Contact Info) Description 08/19/2025 10:45 AM TENANT SELECTOR Office Visit [facility] [address] [phone] Cruz Lombardi MD [address] [place] [address] Health Maintenance Due Date Last Done Comments [...] AUTO DIFF OH Routine 08/05/2025 11:20 AM TENANT SELECTOR CMP (COMPREHENSIVE METABOLIC PANEL) Routine 08/05/2025 11:20 AM TENANT SELECTOR Anemia due to unknown mechanism LACTATE DEHYDROGENASE (LD) Routine 08/05/2025 11:20 AM TENANT SELECTOR Anemia due to unknown mechanism FOLIC ACID (FOLATE) Routine 08/05/2025 1 1:20 AM TENANT SELECTOR Anemia due to unknown mechanism FERRITIN Routine 08/05/2025 11:20 AM TENANT SELECTOR Anemia due to unknown mechanism RETICULOCYTE COUNT (RETIC) Routine 08/05/2025 11:20 AM TENANT SELECTOR Anemia due to unknown mechanism IRON W/ IRON BINDING CAPACITY OH Routine 08/05/2025 11:20 AM TENANT SELECTOR Anemia due to unknown mechanism VITAMIN B12 Routine 08/05/2025 11:20 AM TENANT SELECTOR Anemia due to unknown mechanism HAPTOGLOBIN Routine 08/05/2025 11:20 AM TENANT SELECTOR Anemia due to unknown mechanism ELECTROPHORESIS W/ TOTAL PROTEIN SERUM Routine 08/05/2025 11:20 AM TENANT SELECTOR Anemia due to unknown mechanism from Last 3 Months Results * (ABNORMAL) IRON W/ IRON BINDING CAPACITY [place] (08/05/2025 11:20 AM TENANT SELECTOR) IRON 20(L) 50 - 212 ug/dL [facility] UIBC 457(H) 155 - 355 ug/dL [facility] TIBC 477 261 - 478 ug/dl [facility] % Saturation 4(L) 20 - 50 % [facility] 08/05/2025 11:2 0 AM TENANT SELECTOR Narrative [facility] - 08/05/2025 12:29 PM TENANT SELECTOR Release to patient->Immediate us Cruz Lombardi MD LAB SEND OUTS Final Result [facility] [place] [address], [place] [phone] * (ABNORMAL) CBC WITH AUTO DIFF [place] (08/05/2025 11:20 AM TENANT SELECTOR) WBC 7.0 4.0 - 10.0 10*3/uL [facility] HGB 8.2(L) 11.2 - 15.7 g/dL [facility] HCT 27.8(L) 34.1 - 44.9 % [facility] PLT 192 163 - 369 10*3/uL [facility] MPV 9.2(L) 9.4 - 12.4 fL [facility] RBC 3.34(L) 3.93 - 5.22 10*6/uL [facility] MCV 83 79 - 95 fL [facility] MCH 24.6(L) 25.6 - 32.2 pg [facility] MCHC 29.5(L) 32.2 - 36.5 g/dL [facility] RDW 16.1(H) 11.6 - 14.4 % [facility] Neutrophils % 64.2 36.0 - 66.0 % [facility] Lymphocytes % 24.2 19.0 - 40.0 % [facility] Monocytes % 9.1 4.1 - 12.1 % [facility] Eosinophils % 1.2 0.0 - 3.5 % [facility] Basophils % 1.0 0.0 - 1.0 % [facility] Absolute Neutrophils 4.5 1.4 - 6.6 10*3/uL [facility] Absolute Lymphocytes 1.7 0.8 - 4.0 10*3/uL [facility] Absolute Monocytes 0.6 0.2 - 1.2 10*3/uL [facility] Absolute Eosinophils 0.1 0.0 - 0.4 10*3/uL [facility] Absolute Basophils 0.1 0.0 - 0.1 10*3/uL [facility] 08/05/2025 11:2 0 AM TENANT SELECTOR us Cruz Lombardi MD LAB SEND OUTS Final Result [facility] [place] [address], * VITAMIN B12 (08/05/2025 11:20 AM TENANT SELECTOR) Vitamin B12 209 180 - 914 pg/mL [facility] Blood 08/05/2025 11:2 0 AM TENANT SELECTOR [facility] - 08/06/2025 3:15 PM TENANT SELECTOR Release to patient->Immediate Cruz Lombardi MD CHEMISTRY ORDERABLES Final R esult Performing Organization Address [facility] de Phone Number [facility] [place] [address], * (ABNORMAL) RETICULOCYTE COUNT (RETIC) (08/05/2025 11:20 AM TENANT SELECTOR) Reticulocyte count 1.71(H) 0.50 - 1.70 % [facility] RET-He 23.80(L) 28.20 - 36.60 pg [facility] Comment: RET-He is a direct assessment of incorporation of iron into erythrocyte hemoglobin. It provides an indirect measure of the iron available for new erythropoiesis over past 2-4 days. Blood 08/05/2025 11:2 0 AM TENANT SELECTOR [facility] - 08/05/2025 11:38 AM TENANT SELECTOR Release to patient->Immediate Cruz Lombardi MD HEMATOLOGY ORDERABLES Final Result Performing Organization Address [facility] de Phone Number [facility] [place] [address], * LACTATE DEHYDROGENASE (LD) (08/05/2025 11:20 AM TENANT SELECTOR) LDH 195 140 - 271 U/L [facility] Blood 08/05/2025 11:2 0 AM TENANT SELECTOR Narrative [facility] - 08/05/2025 12:13 PM TENANT SELECTOR Release to patient->Immediate Cruz Lombardi MD CHEMISTRY ORDERABLES Final R esult Performing Organization Address City/[facility]/ZIP Co de Phone Number [facility] [address] [place] [address], * HAPTOGLOBIN (08/05/2025 11:20 AM TENANT SELECTOR) HAPTO 176 44 - 215 mg/dL [facility] Blood 08/05/2025 11:2 0 AM TENANT SELECTOR [facility] - 08/06/2025 3:15 PM TENANT SELECTOR Release to patient->Immediate Cruz Lombardi MD CHEMISTRY ORDERABLES Final R esult Performing Organization Address [facility]/ZIP Co de Phone Number [facility] [place] [address] [place] [address], * FOLIC ACID (FOLATE) (08/05/2025 11:20 AM TENANT SELECTOR) Folate >20.00 >=5.90 ng/mL [facility] Blood 08/05/2025 11:2 0 AM TENANT SELECTOR [facility] - 08/06/2025 3:15 PM TENANT SELECTOR Release to patient->Immediate IS THE PATIENT REQUIRED TO BE FASTING FOR 12 HOURS?->No Cruz Lombardi MD CHEMISTRY ORDERABLES Final R esult Performing Organization Address City[facility]/ZIP Co de Phone Number [facility] [address] [place] [address], * FERRITIN (08/05/2025 11:20 AM TENANT SELECTOR) Ferritin 17 11 - 307 ng/mL [facility] Blood 08/05/2025 11:2 0 AM TENANT SELECTOR Narrative [facility] - 08/06/2025 3:15 PM TENANT SELECTOR Release to patient->Immediate Cruz Lombardi MD CHEMISTRY ORDERABLES Final R esult [facility] [place] [address], [place] [phone] * (ABNORMAL) ELECTROPHORESIS W/ TOTAL PROTEIN SERUM (08/05/2025 11:20 AM TENANT SELECTOR) PROTEIN, TOTAL, SERUM 5.8(L) 6.0 - 8.5 G/DL [facility] ALBUMIN 3.4 2.9 - 4.4 G/DL [facility] [id number]-8-[id number] 0.3 0.0 - 0.4 G/DL [facility] [id number] 0.7 0.4 - 1.0 G/DL [facility] BETA GLOBULIN 0.9 0.7 - 1.3 G/DL [facility] GAMMA GLOBULIN 0.5 0.4 - 1.8 G/DL [facility] M-SPIKE NOT OBSERVED NOT OBSERVED G/DL [facility] GLOBULIN, TOTAL 2.4 2.2 - 3.9 G/DL [facility] A/G RATIO 1.4 0.7 - 1.7 [facility] PLEASE NOTE: COMMENT [facility] Comment: PROTEIN ELECTROPHORESIS SCAN WILL FOLLOW VIA COMPUTER, MAIL, OR ARCHITECTURAL ENGINEER DELIVERY. PDF . [facility] Blood 08/05/2025 11:2 0 AM TENANT SELECTOR Narrative [facility] - 08/06/2025 3:09 PM TENANT SELECTOR TESTING PERFORMED AT: [] [facility], [address] [place] [address], [place], [address], PHONE: [phone], COMMUNICATIONS CONTROLLER: VANESSA MACHADO, PHD Release to patient->Immediate Cruz Lombardi MD CHEMISTRY ORDERABLES Final R esult [facility] [address] [place] [address], * (ABNORMAL) CMP (COMPREHENSIVE METABOLIC PANEL) (08/05/2025 11:20 AM TENANT SELECTOR) Glucose 98 70 - 105 mg/dL [facility] Blood Urea Nitrogen 13 7 - 25 mg/dL [facility] Creatinine 1.1 0.6 - 1.2 mg/dL [facility] Sodium 136 136 - 145 mEq/L [facility] Potassium 4.2 3.5 - 5.1 mEq/L [facility] Chloride 102 98 - 107 mEq/L [facility] Bicarbonate 25 21 - 31 mEq/L [facility] Total Bilirubin 0.4 0.3 - 1.0 mg/dL [facility] Alk. Phosphatase 79 34 - 104 U/L [facility] Aspartate Aminotransferase 16 13 - 39 U/L [facility] Alanine Aminotransferase 9 7 - 52 U/L [facility] Total Protein 5.9(L) 6.4 - 8.9 g/dL [facility] Albumin 4.1 3.5 - 5.7 g/dL [facility] Calcium 9.0 8.6 - 10.3 mg/dL [facility] Anion Gap 13.2 7.0 - 15.0 mEq/L [facility] Globulin 1.8(L) 2.0 - 3.5 g/dL [facility] EGFR 48(L) >60 ml/min/1. 73m2 [facility] Comment: This eGFR is calculated using 2020 CKD-EPI Creatinine equation without race modifier based on the NKF-ASN task force recommendations Equation: nSLI=199*min(SCr/k,1)a*max(SCr/k,1)-1.200*0.9938Age*1.012 (if female), where SCr is serum creatinine, k is 0.7 for females and 0.9 for males, and a is -0.241 for females and -0.302 for males Blood 08/05/2025 11:2 0 AM TENANT SELECTOR Narrative [facility] - 08/05/2025 12:13 PM TENANT SELECTOR Release to patient->Immediate IS THE PATIENT REQUIRED TO BE FASTING FOR 8 HOURS?->No Cruz Lombardi MD CHEMISTRY ORDERABLES Final R esult [facility] [place] [address], from Last 3 Months Insurance MEDICARE [facility] Care Teams Director Of Services Relationship Specialty Start Date End Date Ashlee Doyle MD [address] [place] [id number] PCP - General Internal Medicine 07/22/25 Cruz Lombardi MD [address] [place], [place] [address] Consulting Physician Oncology 07/24/25
--- OUTSIDE RECORDS SUMMARY | 2025-08-12 18:38 | XMS_ITS | Clinical Summary ---
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 06/06/2018 Carotid bruit [...] Td 06/19/2016 Tdap (Generic) 11/10/2012 Zoster (Zostavax) 23445 Unt/0.65Ml 03/29,09/21/2018,09/19/2013,2009 Family History Medical History Relation [...] on file Legal Sex Female 1:30 PM EMBLEM DRAWER IN Gender Identity Not on file Sexual Orientation Not on file Last Filed Vital Signs Vital Sign Reading Time Taken Comments Blood Pressure 140/62 08/21/2020 1:18 PM EMBLEM DRAWER IN Pulse 97 08/21/2020 1:18 PM EMBLEM DRAWER IN Temperature - - Respiratory Rate - - Oxygen Saturation - - Inhaled Oxygen Concentration - - Weight 67.5 kg (148 lb 12.8 oz) 08/21/2020 1:18 PM EMBLEM DRAWER IN Height 165.1 cm (5' 5) 08/21/2020 1:18 PM EMBLEM DRAWER IN Body Mass Index 24.76 08/21/2020 1:18 PM EMBLEM DRAWER IN Plan of Treatment Health Maintenance Due Date [...] file Type:Indemnity Address: ATTN CLAIMS [address] MEDICARE Care Teams Loose Hand Packer Relationship Specialty Start Date End Date Ashlee Doyle MD PCP - General INTERNAL MEDICINE 02/18/20 Melvin Pedraza MD [address] [address] Referring Physician VASCULAR SURGERY 02/18/20
--- OUTSIDE RECORDS SUMMARY | 2025-08-12 18:38 | XMS_ITS | Encounter Summary ---
Author Organization [facility] Address [address] [place] [address] Phone Care Team Providers Care Salesperson Shoes Name Role Phone Miscellaneous, Not In File Unavailable Unava ilable Sheryl Latham MD Unavailable [phone] Ashlee Doyle MD Primary Care Provider [phone] Jonh Junior MD Unavailable Encounter Details Date Type Department Care Team (Late st Contact Info) Description 06/30/2025 Results Follow-Up [facility] Medicine Cardiology [address], [address] [place] [address] Jonh Junior MD [address] [place] [address] Pulmonary Function Test - Social [...] on file Legal Sex Female 2:10 AM 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 Gender Identity Not on file Sexual Orientation Not on file Occupation Industry Job Start Date Job End Date retired Not on file Not on file Not on file documented as of this encounter Plan of Treatment Not on file documented as of this encounter Visit Diagnoses Not on filedocumented in this encounter Care Teams Salesperson Shoes Relationship Specialty Start Date End Date Ashlee Doyle MD [address] [place] [address] PCP - General Internal Medicine 09/05/23 Miscellaneous, Not In File 03/24/21 Sheryl Latham MD Medical Oncologist/Graphics Edit Technician Medical Oncology 05/12/21 Jonh Junior MD [address] [place] [address] Referring Physician Cardiology 09/05/23 documented as of this encounter
--- OUTSIDE RECORDS SUMMARY | 2025-08-12 18:38 | XMS_ITS | Encounter Summary ---
Author Organization [facility] Address [address] [place] [address] Care Team Providers Care Sales And Marketing Engineer Name Role Phone Olivia Foss MD Primary Care Provider Unavailable Encounter Details Date Type Department Care Team (Late st Contact Info) Description 04/09/2019 Lab Requisition [facility] Care DermPath Lab [address] [place] [address] Olivia Fernandez MD [address] [facility] [address] [place] [address] Social History Tobacco Use Types Packs/Day Years Used Date Smoking Tobacco: Never Assessed Comments Unknown Sex and Gender Information Value Date Recorded Sex Assigned at Not on file 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 Previous Bx: [id number]. 3:47 PM CDT DERMATOPATHOLOGY LABORATORY Gross Description Specimen A: Received is one formalin filled container labeled with the patient's name and designated left fa. The specimen consists of a non-oriented ellipse of skin measuring [id number]. The epidermal surface is unremarkable. The margin [...] determined by the Dermatopathology Laboratory at [facility], directed by Dr. Kwame Agrawal. These tests need not be, and therefore are not, approved by the [place] Food and Drug Administration. The tests are used for clinical purposes. Billing Codes Specimen Charges Stain Charges 59860 1 3:47 PM CDT DERMATOPATHOLOGY LABORATORY Embedded Images 3:47 PM CDT DERMATOPATHOLOGY LABORATORY Pathology/Cytolog y TISSUE SPECIMEN FROM SKIN / Unknown 04/06/2019 04/09/2019 6:40 AM CDT Olivia Fernandez MD LAB - PATHOLOGY/CYTOLOGY OR DERABLES Final Result DERMATOPATHOLOGY LABORATORY [facility] - Department of Dermatology [address], [address] [place] [address], [facility] [phone] documented in this encounter Visit Diagnoses Not on filedocumented in this encounter Care Teams Sales And Marketing Engineer Relationship Specialty Start Date End Date Olivia Foss MD PCP - General 02/05/19 documented as of this encounter
--- OUTSIDE RECORDS SUMMARY | 2025-08-12 18:38 | XMS_ITS | Encounter Summary ---
Author Organization [facility] Address [address] [place] [address] Care Team Providers Care Third Officer Name Role Phone Olivia Foss MD Primary Care Provider Unavailable Encounter Details Date Type Department Care Team (Late st Contact Info) Description 02/19/2020 Lab Requisition [facility] DermPath Lab [address] [facility] [place] [address] Yumiko Dykes MD [address] [facility] [address] [place] [address] Social History Tobacco Use Types Packs/Day Years Used Date Smoking Tobacco: Never Assessed Comments Unknown Sex and Gender Information Value Date Recorded Sex Assigned at Not on file 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 Gender Identity Not on file Sexual Orientation Not on file documented as of this encounter Plan of Treatment Not on file documented as of this encounter Procedures Procedure Name Priority Date/Time Associated Diagnosis Comments DERMATOPATHOLOGY Routine 02/18/2020 12:0 0 AM CDT documented in this encounter Results * DERMATOPATHOLOGY (02/18/2020 12:00 AM CDT) Case Report Dermatopathology Report Case: [id number] Authorizing Provider: Yumiko Dykes MD Collected: 02/18/2020 12:00 AM Ordering Location: [facility] DermPath Lab Received: 02/19/2020 08:29 [...] specimen consists of a shave biopsy measuring [id number], bisected. Jar 0+. 0 2:31 PM CDT [...] characteristic determined by the Dermatopathology Laboratory at [facility], directed by Dr. Kwame Agrawal. These tests need not be, and therefore are not, approved by the [place] Food and Drug Administration. The tests are used for clinical purposes. Billing Codes Specimen Charges Stain Charges 58516 1 0 2:31 PM CDT DERMATOPATHOLOGY LABORATORY Embedded Images 0 2:31 PM CDT DERMATOPATHOLOGY LABORATORY Pathology/Cytolog y TISSUE SPECIMEN FROM SKIN / Unknown 02/18/2020 02/19/2020 8:29 AM CDT us Yumiko Dykes MD LAB - PATHOLOGY/CYTOLOGY ORD ERABLES Final Result DERMATOPATHOLOGY LABORATORY [facility] - Department of Dermatology [facility] [address], [facility] [phone] documented in this encounter Visit Diagnoses Not on filedocumented in this encounter Care Teams Third Officer Relationship Specialty Start Date End Date Olivia Foss MD PCP - General 02/05/19 documented as of this encounter
--- OUTSIDE RECORDS SUMMARY | 2025-08-12 18:38 | XMS_ITS | Encounter Summary ---
Author Organization [facility] Address [address] [place] [address] Care Team Providers Care Business Liaison Officer Name Role Phone Olivia Foss MD Primary Care Provider Unavailable Encounter Details Date Type Department Care Team (Late st Contact Info) Description 02/07/2019 Lab Requisition [facility] Care DermPath Lab [address] [place] [address] Olivia Fernandez MD [address] [facility] [address] [place] [address] Social History Tobacco Use Types Packs/Day Years Used Date Smoking Tobacco: Never Assessed Comments Unknown Sex and Gender Information Value Date Recorded Sex Assigned at Not on file 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 Jar 0. Specimen B: Received is one formalin filled container labeled with the patient's name and designated left FA. The specimen consists of a shave (2 pieces) measuring [id number] & [id number]. Jar 0. 10:54 AM T DERMATOPATHOLOGY LABORATORY [...] by the Dermatopathology Laboratory at [facility], directed by Dr. Kwame Agrawal. These tests need not be, and therefore are not, approved by the [place] Food and Drug Administration. The tests are used for clinical purposes. Billing Codes Specimen Charges Stain Charges 13780 51699 1 1 9 10:54 AM T DERMATOPATHOLOGY LABORATORY Embedded Images 10:54 AM T DERMATOPATHOLOGY LABORATORY Pathology/Cytology TISSUE SPECIMEN FROM SKIN / Unknown 02/05/2019 02/07/2019 8:16 AM CDT Miscellaneous samples (specimen) TISSUE SPECIMEN FROM SKIN / Unknown 02/05/2019 02/07/2019 8:16 AM CDT Olivia Fernandez MD LAB - PATHOLOGY/CYTOLOGY OR DERABLES Final Result DERMATOPATHOLOGY LABORATORY [facility] - Department of Dermatology [address] [place] [address], [address] [place] [address], [facility] [phone] documented in this encounter Visit Diagnoses Not on filedocumented in this encounter Care Teams Business Liaison Officer Relationship Specialty Start Date End Date Olivia Foss MD PCP - General 02/05/19 documented as of this encounter
--- OUTSIDE RECORDS SUMMARY | 2025-08-12 18:38 | XMS_ITS | Clinical Summary ---
Author Organization [email or web address] Address [address] [place] [address] Care Team Providers Care Applied Psychology Teacher Name Role Phone Olivia Foss MD Primary Care Provider Unavailable Source Comments [email or web address],non-owned Affiliates and Associated Physician Practices is amultiple site organization consisting of ambulatory clinics and hospital sitesin [place], [place], [place] and [place]. This disclosure is being madepursuant to the Care Everywhere program and may not contain all information available regarding this patient. 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
--- OUTSIDE RECORDS SUMMARY | 2025-08-12 18:38 | XMS_ITS | Encounter Summary ---
Author Organization [facility] Address [address] [place] [address] Care Team Providers Care Crater And Packer Name Role Phone Ashlee Doyle MD Primary Care Provider [phone] Randi Barney MD Unavailable [phone] Miscellaneous, Not In File Unavailable Unava ilable Sheryl Latham MD Unavailable Jonh Junior MD Primary Care Provide r Ashlee Doyle MD Primary Care Provider [phone] Jonh Junior MD Unavailable Encounter Details Date Type Department Care Team (Late st Contact Info) Description 03/31/2021 Telephone [facility] [address] [place] [address] Kindra Mir, RT Social History Tobacco Use Types Packs/Day Years Used Date Smoking Tobacco: Never Smokeless Tobacco: Never Alcohol Use Standard Drinks/Week Comments Yes 0 (1 standard drink = 0.6 oz pur e alcohol) Comments No Sex and Gender Information Value Date Recorded Sex Assigned at Not on file Legal Sex Female 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 Gender Identity Not on file Sexual Orientation [...] documented as of this encounter Care Teams Crater And Packer Relationship Specialty Start Date End Date Ashlee Doyle MD [address] [place] [address] PCP - General 02/09/18 08/24/23 Jonh Junior MD PCP - General Cardiology 08/25/23 09/04/23 Ashlee Doyle MD [address] [place] [address] PCP - General Internal Medicine 09/05/23 Randi Barney MD [address] [place] [address] Referring Physician Cardiology 03/12/21 08/24/23 Miscellaneous, Not In File 03/24/21 Sheryl Latham MD Medical Oncologist/Shellfish Harvester Medical Oncology 05/12/21 Jonh Junior MD Referring Physician Cardiology 09/05/23 documented as of this encounter
--- NOTE | 2025-08-12 18:41 | ECG_ITS ---
Test Date: 2025-08-12 19:03:39 Measurements Intervals [place] Rate: 73 P: 62 GA: 172 QRS: -50 QRSD: 162 T: 93 QT: 465 QTc: 514 Interpretive Statements SINUS RHYTHM LEFT BUNDLE BRANCH BLOCK Electronically Signed On 08-13-2025 05:52:44 TURBINE ASSEMBLER by Dougie Thomas D.O
[2025-08-12 18:49] LABS: Troponin I 0.013 ng/mL (0.000-0.034)
[2025-08-12 21:11] LABS: Immature Reticulocyte Fraction 26.4 % (3.0-15.9); Reticulocyte Hemoglobin Conten 24.8 pg (28.2-36.6); Reticulocytes Absolute 0.06 10^6/uL (0.02-0.10)
[2025-08-12 21:24] LABS: Iron 31 ug/dL (37-170)
[2025-08-12 21:27] LABS: Transferrin 381 mg/dL (206-381)
[2025-08-12 21:31] LABS: Troponin I < 0.012 ng/mL (0.000-0.034)
[2025-08-12 21:34] LABS: Percent Iron Saturation 7 % (20-50)
[2025-08-12 22:01] LABS: Ferritin 19.50 ng/mL (11.1-264)
[2025-08-12 22:25] LABS: Vitamin B12 298.0 pg/mL (239-931)
[2025-08-12] MEDS: IRON SUCROSE COMPLEX 400 MG, IRON SUCROSE COMPLEX 100 MG in SODIUM CHLORIDE 0.9% IV 250 ML 78.57 MG IVPB (22:26)
--- NOTE | 2025-08-12 22:33 | PC.NURSE ---
Per PA to hold Lasix due to pts BP being low
--- NOTE | 2025-08-12 22:37 | WPCEDHO ---
ED Hand Off Checklist All vitals saved: yes IV Site documented: yes All med administrations documented: yes Triage Note Triage Note Pt ambulates to the ED with 08/12/25 16:47 concerns for pneumonia. Pt states she has had a cough for a week and states my chest is wheezing. Pt states she had pneumonia last year. Pt states she is having shortness of breath from walking in from the parking lot. --agree with above triage. Allergies Sulfa (Sulfonamide Antibiotics) Allergy (Severe, Verified 07/30/25 07:20) Swelling of Lip/Tongue/Throat Family History (Last Reviewed 08/12/25 @ 18:41 by Alicia Murguia PA-C) Sibling Cerebrovascular accident Active Medications including assessments/comments Iron Sucrose 400 mg/ Iron Sucrose 100 mg/ Sodium Chloride 275 mls @ 78.571 mls/hr IVPB ONCE ONE Stop: 08/13/25 01:23 Last Admin: 08/12/25 22:26 Dose: 78.57 mls/hr Documented By: EZG Infusion/Titration Document 08/12/25 22:26 EZG (Rec: 08/12/25 22:26 EZG [id number]) Intake IV Site Peripheral Access Left Forearm Container Volume 275 Waste Amount 0 Dosing Infusion Rate 78.57 Cumulative Dose Not Applicable Increase/Decrease Started Elapsed Time Elapsed Time ( 0m minutes) Administered/Completed Medications Discontinued Medications Furosemide (Furosemide Inj 40 Mg/4 Ml Vial) 20 mg IV PUSH ONCE STA Stop: 08/12/25 21:55 Last Admin: 08/12/25 22:36 Dose: Not Given Documented By: ACS Non-Admin Reason: See Notes Notes 08/12/25 22:33 Nurse Note by Angelina Sabillon to hold Lasix due to pts BP being low Initialized on 08/12/25 22:33 - END OF NOTE Interventions/Assessments IV / Saline Lock, Insert Start: 08/12/25 14:33 Freq: ONCE Status: Active Protocol: Document 08/12/25 16:07 MJS (Rec: 08/12/25 16:08 MJS [id number]) IV Assessment Peripheral Access Left Forearm IV Catheter Access Initiated IV Insertion Date 08/12/25 IV Insertion Time 16:08 Catheter Gauge 18 IV Insertion 1 Attempts Ultrasound Used for No Placement IV Site Assessment WNL IV Care and WNL Maintenance PA: Respiratory Assessment Start: 08/12/25 12:48 Freq: Status: Complete Protocol: Document 08/12/25 16:47 [facility] (Rec: 08/12/25 16:49 [facility] [id number]) Respiratory Assessment Symptoms Congestion,Cough,Shortness of Breath With Exertion, Wheezing Effort Normal Pattern Regular Depth Normal Chest Expansion Symmetrical Adult Capillary Normal/Less than 2 Seconds Refill Throughout Phase Inspiratory & Expiratory Lung Sounds Clear Cough Description Acute Oxygen Delivery Pulse Oximetry (90- 100 100) Oxygen Delivery Room Air Last Vital Signs Temperature 98.1 F 08/12/25 16:47 Pulse Rate 77 08/12/25 22:29 Respiratory Rate 16 08/12/25 22:29 Pulse Oximetry 97 08/12/25 22:29 Blood Pressure 117/45 L 08/12/25 22:29 Blood Pressure Mean 69 08/12/25 22:29 Blood Pressure Position Sitting 08/12/25 16:47 Oxygen Delivery Room Air 08/12/25 16:47 Weight 53 kg 08/12/25 13:24 Last Result - Abnormals Only RBC 3.23 M/mm3 (4.2-5.4) L 08/12/25 16:06 Hgb 7.8 g/dL (12.0-15.0) L 08/12/25 16:06 Hct 26.2 % (37.0-47.0) L 08/12/25 16:06 MCH 24.1 pg (26-34) L 08/12/25 16:06 MCHC 29.8 g/dl (32-36) L 08/12/25 16:06 RDW 16.0 % (11.5-14.5) H 08/12/25 16:06 [place] % (Auto) 12.6 % (2.6-8.5) H 08/12/25 16:06 [place] # (Auto) 0.9 K/mm3 (0.1-0.6) H 08/12/25 16:06 Immature Retic Fraction 26.4 % (3.0-15.9) H 08/12/25 20:59 Retic Hgb Content 24.8 pg (28.2-36.6) L 08/12/25 20:59 PT 15.4 Seconds (11.1-14.7) H 08/12/25 18:11 Sodium 129 mmol/L (137-145) L 08/12/25 16:06 Creatinine 1.06 mg/dL (0.7-1.0) H 08/12/25 16:06 Estimated GFR 49 (59-) L 08/12/25 16:06 Iron 31 ug/dL (37-170) L 08/12/25 20:59 TIBC 474 ug/dL (261-462) H 08/12/25 20:59 % Saturation 7 % (20-50) L 08/12/25 20:59 NT-Pro-B Natriuret Pep 2230 pg/mL (19.9-100) H 08/12/25 16:06 Most Recent Suicide Severity Rating Suicide Severity Rating NO RISK INDICATED 08/12/25 16:47
[2025-08-12] MEDS: ACETAMINOPHEN 325 MG TABLET 650 MG PO (22:49)
--- NOTE | 2025-08-12 23:16 | ADMGEN ---
This patient, Agustina Cordova, was admitted to 2 Medical Room 251-01, arrived @2310. Patient oriented to hospital policies and general routines including ID bracelet, bed and alarms, visiting hours, pain management, procedures, bathroom and other care routines, personal items, smoking policy, room service/diet, and visiting hours. Information on how to activate the Rapid Response Team has been discussed. Patient are encouraged to report perceived risks to care and to ask questions if they do not understand what they are told or what they should do.
[2025-08-13] VITALS (9 sets, daily range): BP systolic 107–175; BP diastolic 53–63; PULSE 64–85; RESP 12–17; TEMP 36.2–36.4; O2SAT 90–99
--- NOTE | 2025-08-13 | ECHO_ITS ---
Patient Info Name: Agustina Cordova Age: 89 years : 1935 Gender: Female Ht: 65 in Wt: 115 lbs BSA: 1.54 m2 HR: 68 bpm BP: 175 / 63 mmHg Technical Quality: Good Exam Date: 08/13/2025 11:45 AM Patient Status: I Admit Date: 08/12/2025 Exam Type: CA echo doppler color flow Complete two-dimensional, color flow and Doppler transthoracic echocardiogram is performed. Staff Referring Physician: Jorge Junior Raw Products Director: Dmitriy Colby III Attending Provider: Cher Guerrero DO Summary 1. Complete two-dimensional, color flow and Doppler transthoracic echocardiogram is performed. 2. Left ventricular chamber dimension is mildly enlarged. 3. Left ventricular systolic function is moderately globally reduced, estimated at 40-45. 4. There is mild concentric increased left ventricular wall thickness. 5. The left ventricular diastolic function is abnormal. 6. E/e' 31 is significantly elevated. 7. Left atrial chamber dimension is moderately enlarged. 8. There is mild aortic valve sclerosis. 9. The mitral valve has a mildly calcified annulus. 10. There is moderate mitral valve regurgitation. 11. There is trace pulmonic regurgitation. 12. Pleural effusion noted. Left Ventricle E/e' 31 is significantly elevated. Left ventricular chamber dimension is mildly enlarged. Left ventricular systolic function is moderately globally reduced, estimated at 40-45. There is mild concentric increased left ventricular wall thickness. The left ventricular diastolic function is abnormal. Right Ventricle Right ventricular chamber dimension is normal. Right ventricular systolic function is normal and with normal TAPSE 2.1 cm. Left Atria Left atrial chamber dimension is moderately enlarged. Right Atria Right atrial chamber dimension is normal. Aortic Valve The aortic valve is trileaflet. There is mild aortic valve sclerosis. There is no aortic valve stenosis. There is no aortic valve regurgitation. Pulmonic Valve There is trace pulmonic regurgitation. Mitral Valve The mitral valve has a mildly calcified annulus. There is no mitral valve stenosis. There is moderate mitral valve regurgitation. Tricuspid Valve There is no tricuspid valve regurgitation. Pericardium/Pleural There is no pericardial effusion. Pleural effusion noted. Inferior Vena Cava Normal inferior vena cava with >50% collapse upon inspiration consistent with normal right atrial pressure, 5 mmHg. Aorta The aortic root size at the sinus of Valsalva is normal. Left Ventricular Outflow Tract Name Value Normal LVOT 2D LVOT Diameter 2.0 cm LVOT Doppler LVOT Peak Velocity 87 cm/s LVOT Peak Gradient 3 mmHg LVOT Mean Gradient 2 mmHg LVOT VTI 19 cm LVOT VTI/AV VTI Ratio 0.8 LVOT Stroke Volume 61 ml LVOT CO 4.4 l/min LVOT CI 2.9 l/min/m2 Pulmonic Valve Name Value Normal PV Doppler PV Peak Velocity 89 cm/s PV Peak Gradient 3 mmHg PV Mean Gradient 1 mmHg Mitral Valve Name Value Normal MV Doppler MV Peak Gradient 8 mmHg MV Mean Gradient 3 mmHg MV Area (Cont Eq VTI) 2.2 cm2 MV Regurgitation Doppler MR Peak Gradient 146 mmHg MV Diastolic Function MV E Peak Velocity 134 cm/s MV A Peak Velocity 104 cm/s MV E/A 1.3 MV Decel Time (PW) 171 ms MV Annular TDI MV E/e' (Septal) 37.0 MV E/e' (Lateral) 28.0 MV E/e' (Average) 32.5 Tricuspid Valve Name Value Normal Estimated PAP/RSVP RA Pressure 5 mmHg <=5 TV Annular TDI TV Lateral [place]ena s' Velocity 13.8 cm/s >=9.5 Aortic Valve Name Value Normal AV Doppler AV Peak Velocity 114 cm/s AV Peak Gradient 5 mmHg AV Mean Gradient 3 mmHg AV VTI 23 cm AV Area (Cont Eq VTI) 2.7 cm2 >=3.0 AV Area (Cont Eq Jeremy) 2.4 cm2 AV DI (Jeremy) 0.76 AV Regurgitation 2D LVOT Area 3.2 cm2 Ventricles Name Value Normal LV Dimensions 2D/MM IVS Diastolic Thickness (2D) 1.2 cm 0.6-1.0 LVID Diastole (2D) 4.9 cm 3.8-5.2 LVIW Diastolic Thickness (2D) 1.0 cm 0.6-0.9 LVID Systole (2D) 4.0 cm 2.2-3.5 LVOT Diameter 2.0 cm LV Mass (2D Cubed) 195.02 g 67.00-162.00 LV Mass Index (2D Cubed) 127 g/m2 43-95 Relative Wall Thickness (2D) 0.41 <=0.42 LV Fractional Shortening/Ejection Fraction 2D/MM LV Fractional Shortening (2D) 19 % 27-45 LV EF (2D Teichholz) 39 % LV Diastolic Volume (4C MOD) 70 ml LV EF (4C MOD) 32 % LV Diastolic Volume (2C MOD) 85 ml LV EF (2C MOD) 35 % LV Diastolic Volume (BP MOD) 81 ml 46-106 LV Diastolic Volume Index (BP MOD) 53 ml/m2 29-61 LV Systolic Volume (BP MOD) 52 ml 14-42 LV Systolic Volume Index (BP MOD) 34 ml/m2 8-24 LV EF (BP MOD) 36 % 54-74 LV Diastolic Length (4C) 6.5 cm LV Systolic Length (4C) 6.2 cm LV Stroke Volume (4C MOD) 23 ml Atria Name Value Normal LA Dimensions LA Volume (4C A-L) 56 ml LA Volume (BP A-L) 70 ml RA Dimensions RA Systolic Major Early Length (4C) 5.5 cm 2.2-2.8 RA Area (4C) 14.3 cm2 <=18.0 Report Signatures
[2025-08-13] MEDS: BENZONATATE 100 MG CAPSULE PO ×2 (04:39→08:26)
--- NOTE | 2025-08-13 07:46 | PM.IMHP ---
H&P: HPI History of Present Illness Date/Time: 08/13/25 07:46 Chief Complaint: shortness of breath and cough Narrative: 88-year-old female with paroxysmal atrial fibrillation on chronic anticoagulation, 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 She has a history of CHF and is followed by Dr. Jonh Junior at [facility]. She has been having low blood pressures lately thus her spironolactone has been recently discontinued. She started noticing lower extremity edema which prompted her to call her traveling nurse and they gave her lasix as needed for swelling. She states that the swelling pretty well resolved and she has since stopped taking the lasix. She endorses increased shortness of breath when lying down and with exertion. She states she does not follow the cardiac diet nor does she check her weights daily. She does state she drinks a lot of water daily, likely 16 cup/day at least. She denies any fever, chest pain, palpitations, nausea/vomiting, abdominal pain, or dizziness/lightheadedness. Patient was noted to have anemia on admission for which she states she has chronic anemia and was being seen by hematology for this. She was previously on iron supplementation and is unsure why this was discontinued. She denies any blood in her urine or stool. Discussed code status with patient and she wishes to remain a full code at this time. ED workup: CBC with WBC 6.7, H/H 7.8/26.2, and PLT 180. CMP with Na 129, K 4.5, and BUN/Cr 18/1.06 with GFR 49. LFTs WNL. Troponin negative. Iron 31, TIBC 474, % sat 7, transferrin 381, and ferritin 19.50. B12 and folate WNL. BNP 2230. Viral panel negative. Chest XR: small pleural effusions. Review of Systems Review of Systems: All systems reviewed & are unremarkable except as noted in HPI and below PMFSH Past Medical History Medical History History of hip fracture right hip Heart failure with mid-range ejection fraction Echocardiogram in October 2023 showed mildly reduced LV systolic function with an EF of 45 to 50% and grade 1 diastolic dysfunction. Transient ischemic attack Chronic anticoagulation Paroxysmal atrial fibrillation Left bundle branch block Hyperlipidemia Hypertension Lymphoma (2020) Surgical History Surgical History History of lymph node biopsy Family History Family History Sibling Cerebrovascular accident Mother Cardiac abnormality Social History Social History (Updated 08/13/25 @ 14:44 by Starr Holland PA-C) Social History: Lives home alone with no pets. Surrogate medical decision maker: Annemarie Ortiz, granddaughter. Code status: Full code. Smoking status: Never smoker Alcohol intake: never Substance use: never Substance use type: does not use Lack of Transportation: No Lack of Food: Never True Current Housing: I Have Housing Concerned About Future Housing: No Difficulty Paying Gas/Electric Bills: No Difficulty Paying for Meds: No Currently Unemployed: No Education: Bachelor's Degree Difficulty w/ Childcare or Family Care: No Spiritual care concerns: No Meds Home Medications and Allergies Home Medications ?Medication ?Instructions ?Recorded ?Confirmed ?Type acetaminophen 500 mg tablet 1,000 mg PO TID PRN Pain (Scale 10/21/23 08/12/25 History Score 1-3) amiodarone 200 mg tablet 100 mg PO DAILY 10/21/23 08/12/25 History hydrocortisone 2.5 % topical cream 1 applic RECTAL DAILY PRN 10/21/23 08/12/25 History with perineal applicator Hemorrhoids melatonin 3 mg tablet 3 mg PO HS PRN Insomnia 10/21/23 08/12/25 History timolol 0.25 % eye drops 1 drp EACH EYE Q12H 10/21/23 08/12/25 History walker #1 ea 01/15/25 08/12/25 Rx apixaban 2.5 mg tablet (Eliquis) 2.5 mg PO Q12H 08/12/25 08/12/25 History pantoprazole 40 mg tablet,delayed 40 mg PO DAILY 08/12/25 08/12/25 History release polysaccharide iron complex 150 mg 150 mg PO DAILY 08/12/25 08/12/25 History iron capsule rosuvastatin 5 mg tablet 5 mg PO .QOD 08/12/25 08/12/25 History sacubitril 24 mg-valsartan 26 mg 1 tablet PO BID 08/12/25 08/12/25 History tablet Allergies Allergy/AdvReac Type Severity Reaction Status Date / Time Sulfa (Sulfonamide Allergy Severe Swelling Verified 08/13/25 07:38 Antibiotics) of Lip/Tongue/Throat Vital Signs Vital Signs - 24 hr 08/12/25 13:24 08/12/25 16:08 08/12/25 16:47 Temperature 97.6 F 98.1 F Pulse Rate 77 73 79 Respiratory Rate 15 18 21 H Blood Pressure 110/60 130/61 173/61 H Pulse Oximetry 100 100 100 Oxygen Delivery Room Air Room Air 08/12/25 16:47 08/12/25 16:47 08/12/25 17:16 Temperature Pulse Rate 80 75 Respiratory Rate 19 14 Blood Pressure 173/61 H 131/55 L Pulse Oximetry 100 100 95 Oxygen Delivery Room Air 08/12/25 17:46 08/12/25 18:01 08/12/25 18:16 Temperature Pulse Rate 79 78 77 Respiratory Rate 17 19 16 Blood Pressure 136/47 L 139/54 L 130/59 L Pulse Oximetry 99 99 98 Oxygen Delivery 08/12/25 18:31 08/12/25 19:17 08/12/25 22:29 Temperature Pulse Rate 75 75 77 Respiratory Rate 15 19 16 Blood Pressure 137/56 L 163/60 H 117/45 L Pulse Oximetry 97 99 97 Oxygen Delivery 08/12/25 23:08 08/12/25 23:40 08/13/25 06:00 Temperature 97.5 F L 97.5 F L Pulse Rate 77 82 82 Respiratory Rate 16 16 16 Blood Pressure 117/45 L 165/62 H 175/63 H Pulse Oximetry 97 95 90 Oxygen Delivery Exam Narrative: AF HR 85 RR 16 Spo2 99 BP 121/56 General: female in no acute respiratory distress who is nontoxic appearing, sitting up in bed. HEENT: Normocephalic. Atraumatic. Extraocular movement intact. Sclera clear and anicteric. No facial asymmetry. Neck: Neck was supple. No dominant adenopathy, thyromegaly or masses. Chest: Lungs are rhonchi to auscultation bilaterally. No wheezes or crackles. Speaking full sentences. CV: Heart was regular rate and rhythm. S1-S2. No murmurs, gallops, or rubs. Abd: Abdomen was soft. Nontender. Nondistended. Positive bowel sounds. Ext: No clubbing, cyanosis. Trivial edema to BLE extending to mid coates. DP pulses bilaterally. Neuro: Patient is alert and oriented x4. Strength is 5/5 in both upper and lower extremities. Cranial nerves 2-12 are intact. Speech is clear. Psych: Normal mood and affect. Patient is pleasant and cooperative. Skin: Warm and dry. No rashes noted. H&P: Results Labs Labs: Short CBC 08/12/25 Range/Units 16:06 WBC 6.7 (4.5-10.0) K/mm3 Hgb 7.8 L (12.0-15.0) g/dL Hct 26.2 L (37.0-47.0) % Plt Count 180 D (150-375) k/mm3 BMP 08/12/25 16:06 Sodium 129 L Potassium 4.5 Chloride 99 Carbon Dioxide 23 BUN 17 Creatinine 1.06 H Glucose 91 Calcium 9.0 Cardiac Enzymes 08/12/25 08/12/25 Range/Units 16:06 20:59 Troponin I 0.013 < 0.012 (0.000-0.034) ng/mL Liver Function 08/12/25 Range/Units 16:06 Total Bilirubin 0.5 (0.2-1.3) mg/dL AST 25 (14-36) U/L ALT 13 (6-35) U/L Alkaline Phosphatase 77 (38-126) U/L Albumin 4.0 (3.5-5.1) g/dL Assessment and Plan Assessment and plan (1) CHF (congestive heart failure): Qualifiers: Heart failure chronicity: acute Heart failure type: unspecified Qualified Code(s): I50.9 - Heart failure, unspecified Code(s): I50.9 - Heart failure, unspecified Status: Acute Assessment and Plan: History of CHF and is followed by Dr. Jonh Junior at [facility]. She has been having low blood pressures lately thus her spironolactone has been recently discontinued. She started noticing lower extremity edema which prompted her to call her traveling nurse and they gave her lasix as needed for swelling. She states that the swelling pretty well resolved and she has since stopped taking the lasix. - Symptoms: sob with lying flat and exertion, trivial edema to ble - Current medications: entresto bid - Started on lasix 20 mg daily, closely monitor blood pressures. Currently stable. - BNP elevated at 2230 - EKG: sinus rhythm with LBBB - Chest XR: small pleural effusions No pneumonia or focal consolidation noted - Echo: LVEF 40-45% with abnormal diastolic function Prior echo 10/21/23: LVEF 45-50% with grade I diastolic dysfunction - Monitor vital signs, I&Os, BUN/creatinine, daily weights, neuro status and patient is a fall risk - Monitor serum electrolytes, Keep serum Potassium>4 and serum Magnesium>2 and CBC (2) Anemia: Qualifiers: Anemia type: unspecified type Qualified Code(s): D64.9 - Anemia, unspecified Code(s): D64.9 - Anemia, unspecified Status: Acute Assessment and Plan: Hemoglobin 7.8 on admission, baseline appears around 9-10. Normocytic. Patient reports hx of KHLOE and is on iron supplementation. Guiaic exam in the ED negative. Iron panel ordered B12 and folate WNL (3) Hyponatremia: Code(s): E87.1 - Hypo-osmolality and hyponatremia Status: Acute Assessment and Plan: Na 129 on admission, baseline 130-135 Possibly related to volume overload Remains asymptomatic Continue to monitor (4) Paroxysmal A-fib: Code(s): I48.0 - Paroxysmal atrial fibrillation Status: Acute Assessment and Plan: - EKG sinus rhythm with LBBB with HR 73 - Current home medication: amiodarone 100 mg daily - Anticoagulation: eliquis 2.5 mg q12 h - Electrical Lineworker: Dr. Jonh Junior at [facility] Currently in sinus rhythm. Quality VTE Prophylaxis VTE prophylaxis: pharmacologic ordered Hospitalist MIPS Advance Care Plan I have confirmed that the patient's Advanced Care Plan is present, code status is documented, or surrogate decision maker is listed in patient medical record.: Yes Medication Reconciliation I have utilized all available resources to obtain, update and review the patients current medications (includes all prescriptions, OTC, herbals, cannabis, and nutritional supplements).: Yes
[2025-08-13] MEDS: AMIODARONE HCL 100 MG TABLET PO (08:26)
[2025-08-13] MEDS: ROSUVASTATIN 5 MG TABLET PO (08:26)
[2025-08-13] MEDS: ACETAMINOPHEN 325 MG TABLET 650 MG PO ×2 (08:26→21:00)
[2025-08-13] MEDS: PANTOPRAZOLE 40 MG TABLET PO (08:26)
[2025-08-13] MEDS: SACUBITRIL/VALSARTAN 24-26 MG TABLET 1 TAB PO (08:28)
[2025-08-13] MEDS: APIXABAN 2.5 MG TABLET PO ×2 (08:28→21:07)
[2025-08-13] MEDS: ONDANSETRON INJ 4 MG/2 ML VIAL IV PUSH (16:26)
[2025-08-13] MEDS: MELATONIN 5 MG TABLET PO (21:02)
[2025-08-14] VITALS (7 sets, daily range): BP systolic 100–130; BP diastolic 44–52; PULSE 77–88; RESP 17; TEMP 36.7; O2SAT 95
[2025-08-14 04:36] LABS: Hematocrit 27.6 % (37.0-47.0); Hemoglobin 8.1 g/dL (12.0-15.0); Mean Corpuscular HGB Conc 29.3 g/dl (32-36); Mean Corpuscular Hemoglobin 24.3 pg (26-34); Mean Corpuscular Volume 82.6 fl (80-100); Platelet Count Result 165 k/mm3 (150-375); Red Blood Count 3.34 M/mm3 (4.2-5.4); White Blood Count 7.4 K/mm3 (4.5-10.0)
[2025-08-14 04:54] LABS: Alanine Aminotransferase 12 U/L (6-35); Albumin Level 3.6 g/dL (3.5-5.1); Alkaline Phosphatase 71 U/L (38-126); Anion Gap 6 mmol/L (4-12); Aspartate Amino Transferase 24 U/L (14-36); Bilirubin,Total 0.5 mg/dL (0.2-1.3); Blood Urea Nitrogen 17 mg/dL (7-17); Calcium 9.3 mg/dL (8.4-10.2); Carbon Dioxide 22 mmol/L (22-30); Chloride 105 mmol/L (98-107); Estimated CRCL calculation 26 ml/min; Estimated Glomerular Filt Rate 47; Glucose 83 mg/dL (65-110); Potassium 4.9 mmol/L (3.4-5.0); Sodium 133 mmol/L (137-145); Total Protein 5.8 g/dL (6.3-8.2)
[2025-08-14] MEDS: BENZONATATE 100 MG CAPSULE PO (07:00)
[2025-08-14] MEDS: APIXABAN 2.5 MG TABLET PO (09:05)
[2025-08-14] MEDS: PANTOPRAZOLE 40 MG TABLET PO (09:05)
[2025-08-14] MEDS: ACETAMINOPHEN 325 MG TABLET 650 MG PO (09:06)
--- NOTE | 2025-08-14 10:09 | P.PNIM_ITS ---
Progress Note: A&P Assessment and Plan (1) CHF (congestive heart failure): Qualifiers: Heart failure chronicity: acute Heart failure type: unspecified Qualified Code(s): I50.9 - Heart failure, unspecified Code(s): I50.9 - Heart failure, unspecified Status: Acute Assessment and Plan: History of CHF and is followed by Dr. Jonh Junior at [facility]. She has been having low blood pressures lately thus her spironolactone has been recently discontinued. She started noticing lower extremity edema which prompted her to call her road manager and they gave her lasix as needed for swelling. She states that the swelling pretty well resolved and she has since stopped taking the lasix. - Symptoms: sob with lying flat and exertion, trivial edema to ble - Current medications: entresto bid - Started on lasix 20 mg daily, closely monitor blood pressures. Currently stable. - BNP elevated at 2230 - EKG: sinus rhythm with LBBB - Chest XR: small pleural effusions No pneumonia or focal consolidation noted - Echo: LVEF 40-45% with abnormal diastolic function Prior echo 10/21/23: LVEF 45-50% with grade I diastolic dysfunction - Monitor vital signs, I&Os, BUN/creatinine, daily weights, neuro status and patient is a fall risk - Monitor serum electrolytes, Keep serum Potassium>4 and serum Magnesium>2 and CBC (2) Anemia: Qualifiers: Anemia type: unspecified type Qualified Code(s): D64.9 - Anemia, unspecified Code(s): D64.9 - Anemia, unspecified Status: Acute Assessment and Plan: Hemoglobin 7.8 on admission, baseline appears around 9-10. Normocytic. Patient reports hx of KHLOE and is on iron supplementation. Guiaic exam in the ED negative. Iron panel ordered B12 and folate WNL (3) Hyponatremia: Code(s): E87.1 - Hypo-osmolality and hyponatremia Status: Acute Assessment and Plan: Na 129 on admission, baseline 130-135 Possibly related to volume overload Remains asymptomatic Continue to monitor (4) Paroxysmal A-fib: Code(s): I48.0 - Paroxysmal atrial fibrillation Status: Acute Assessment and Plan: - EKG sinus rhythm with LBBB with HR 73- unchanged from previous reading in 10/21/23 - Current home medication: amiodarone 100 mg daily - Anticoagulation: eliquis 2.5 mg q12 h - Inspector Plumbing: Dr. Jonh Junior at [facility] Currently in sinus rhythm. Time Spent With Patient Time with patient: 25 - 35 minutes Subjective Date/time seen: 08/14/25 10:09 Interval history: 88-year-old female with paroxysmal atrial fibrillation on chronic anticoagulation, heart failure with mid-range ejection fraction and diastolic dysfunction, hyperlipidemia, gastroesophageal reflux disease, and history of lymphoma s/p chemo who presented to the hospital from home for evaluation of s hortness of breath and cough that has been ongoing for 1 week. She has a history of CHF and is followed by Dr. Jonh Junior at [facility]. She has been having low blood pressures lately thus her spironolactone has been recently discontinued. She started noticing lower extremity edema which prompted her to call her road manager and they gave her lasix as needed for swelling. She states that the swelling pretty well resolved and she has since stopped taking the lasix. She endorses increased shortness of breath when lying down and with exertion. She states she does not follow the cardiac diet nor does she check her weights daily. She does state she drinks a lot of water daily, likely 16 cup/day at least. She denies any fever, chest pain, palpitations, nausea/vomiting, abdominal pain, or dizziness/lightheadedness. Patient was noted to have anemia on admission for which she states she has chronic anemia and was being seen by hematology for this. She was previously on iron supplementation and is unsure why this was discontinued. She denies any blood in her urine or stool. ED workup: CBC with WBC 6.7, H/H 7.8/26.2, and PLT 180. CMP with Na 129, K 4.5, and BUN/Cr 18/1.06 with GFR 49. LFTs WNL. Troponin negative. Iron 31, TIBC 474, % sat 7, transferrin 381, and ferritin 19.50. B12 and folate WNL. BNP 2230. Viral panel negative. Chest XR: small pleural effusions. 08/14 pt is seen and examined. Her BP this morning is 100/44, so she refused lasix. Apparently she also lost her IV access at some point. Review of Systems Review of Systems: All systems reviewed & are unremarkable except as noted in HPI and below Exam Narrative: AF HR 85 RR 16 Spo2 99 BP 121/56 General: female in no acute respiratory distress who is nontoxic appearing, sitting up in bed. HEENT: Normocephalic. Atraumatic. Extraocular movement intact. Sclera clear and anicteric. No facial asymmetry. Neck: Neck was supple. No dominant adenopathy, thyromegaly or masses. Chest: Lungs are rhonchi to auscultation bilaterally. No wheezes or crackles. Speaking full sentences. CV: Heart was regular rate and rhythm. S1-S2. No murmurs, gallops, or rubs. Abd: Abdomen was soft. Nontender. Nondistended. Positive bowel sounds. Ext: No clubbing, cyanosis. Trivial edema to BLE extending to mid coates. DP pulses bilaterally. Neuro: Patient is alert and oriented x4. Strength is 5/5 in both upper and lower extremities. Cranial nerves 2-12 are intact. Speech is clear. Psych: Normal mood and affect. Patient is pleasant and cooperative. Skin: Warm and dry. No rashes noted. Objective Data Vital Signs Vital Signs: Vital Signs - 24 hr 08/13/25 12:00 08/13/25 14:00 08/13/25 16:00 Temperature 97.1 F L Pulse Rate 78 85 77 Respiratory Rate 16 Blood Pressure 121/56 L Pulse Oximetry 99 Oxygen Delivery 08/13/25 16:25 08/13/25 20:00 08/13/25 20:00 Temperature 97.4 F L 97.6 F Pulse Rate 64 81 84 Respiratory Rate 12 17 Blood Pressure 107/53 L 124/55 L Pulse Oximetry 95 95 Oxygen Delivery 08/14/25 00:00 08/14/25 04:00 08/14/25 04:36 Temperature 98.0 F Pulse Rate 82 83 77 Respiratory Rate 17 Blood Pressure 130/52 L Pulse Oximetry 95 Oxygen Delivery 08/14/25 09:00 08/14/25 09:01 Temperature Pulse Rate 82 Respiratory Rate Blood Pressure 100/44 L Pulse Oximetry Oxygen Delivery Room Air Intake/Output Intake/Output: Intake & Output 08/11/25 08/12/25 08/13/25 08/14/25 23:59 23:59 23:59 23:59 Intake Total 1350 820 Balance 1350 820 Meds/Results Medications: Active Medications Generic Name Dose Route Start Last Admin Trade Name Freq PRN Reason Stop Dose Admin Acetaminophen 650 mg 08/12/25 21:55 08/14/25 09:06 Acetaminophen 325 Mg Tablet PO 650 mg Q4H PRN Administration Mild Pain (1-3) or Fever Amiodarone HCl 100 mg 08/13/25 09:00 08/13/25 08:26 Amiodarone Hcl 100 Mg Tablet PO 100 mg DAILY JEREMIAH Administration Apixaban 2.5 mg 08/13/25 09:00 08/14/25 09:05 Apixaban 2.5 Mg Tablet PO 2.5 mg Q12H JEREMIAH Administration Benzonatate 100 mg 08/13/25 02:18 08/14/25 07:00 Benzonatate 100 Mg Capsule PO 100 mg DAILY PRN Administration Cough Dextrose 12.5 gm 08/12/25 21:55 Dextrose 50% 25 Gm/50 Ml Syringe IV PUSH PRN PRN Hypoglycemia Protocol Furosemide 20 mg 08/14/25 09:00 Furosemide Inj 40 Mg/4 Ml Vial IV PUSH DAILY JEREMIAH Glucagon 1 mg 08/12/25 21:55 Glucagon For Inj 1 Mg Vial IM PRN PRN Hypoglycemia Protocol Glucose 15 gm 08/12/25 21:55 Glucose Oral Gel 15 Gm Of Glucse In 37.5 Gm Tube PO PRN PRN Hypoglycemia Protocol Dextrose 1,000 mls @ 100 mls/hr 08/12/25 21:55 Dextrose 5% 1,000 Ml IVPB PRN PRN Hypoglycemia Protocol Melatonin 5 mg 08/13/25 02:18 08/13/25 21:02 Melatonin 5 Mg Tablet PO 5 mg HS PRN Administration Insomnia Ondansetron HCl 4 mg 08/13/25 16:10 08/13/25 16:26 Ondansetron Inj 4 Mg/2 Ml Vial IV PUSH 4 mg Q4H PRN Administration Nausea And Vomiting Pantoprazole Sodium 40 mg 08/13/25 09:00 08/14/25 09:05 Pantoprazole 40 Mg Tablet PO 40 mg DAILY JEREMIAH Administration Perflutren Lipid Microsphere 0 ml 08/13/25 07:57 Perflutren Lipid Microspheres 1.5 Ml Vial Diluted To 10 Ml Total Volume IV PUSH 08/16/25 07:57 ONCE PRN adequate visualization Protocol Rosuvastatin Calcium 5 mg 08/13/25 09:00 08/13/25 08:26 Rosuvastatin 5 Mg Tablet PO 5 mg Q48H JEREMIAH Administration Sacubitril/Valsartan 1 tab 08/13/25 09:00 08/13/25 16:31 Sacubitril/Valsartan 24-26 Mg Tablet PO Not Given BID PENDING SALE TO [facility] Radiology Results: ITS Impressions Chest X-Ray 08/12/25 14:26 IMPRESSION: 1. Small pleural effusions. Labs Labs: Laboratory Results - last 24 hr 08/14/25 04:18 WBC 7.4 RBC 3.34 L Hgb 8.1 L Hct 27.6 L MCV 82.6 MCH 24.3 L MCHC 29.3 L RDW 16.4 H Plt Count 165 MPV 9.4 Sodium 133 L Potassium 4.9 Chloride 105 Carbon Dioxide 22 Anion Gap 6 BUN 17 Creatinine 1.10 H Estim Creat Clear Calc 26 Estimated GFR 47 L Glucose 83 Calcium 9.3 Total Bilirubin 0.5 AST 24 ALT 12 Alkaline Phosphatase 71 Total Protein 5.8 L Albumin 3.6 Quality VTE Prophylaxis VTE prophylaxis: pharmacologic ordered
[2025-08-14] MEDS: AMIODARONE HCL 100 MG TABLET PO (11:19)
--- NOTE | 2025-08-14 11:24 | PM.DS ---
DS: Admitting Diagnosis Discharge Date 08/14 Admitting Diagnosis sob DS: Discharge Diagnosis Discharge Diagnosis (1) CHF (congestive heart failure): Qualifiers: Heart failure chronicity: acute Heart failure type: unspecified Qualified Code(s): I50.9 - Heart failure, unspecified Code(s): I50.9 - Heart failure, unspecified Status: Acute (2) Anemia: Qualifiers: Anemia type: unspecified type Qualified Code(s): D64.9 - Anemia, unspecified Code(s): D64.9 - Anemia, unspecified Status: Acute (3) Hyponatremia: Code(s): E87.1 - Hypo-osmolality and hyponatremia Status: Acute (4) Paroxysmal A-fib: Code(s): I48.0 - Paroxysmal atrial fibrillation Status: Acute DS: Summary Hospital Course Hospital Course: 88-year-old female with paroxysmal atrial fibrillation on chronic anticoagulation, 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 She has a history of CHF and is followed by Dr. Jonh Junior at [facility]. She has been having low blood pressures lately thus her spironolactone has been recently discontinued. She started noticing lower extremity edema which prompted her to call her library circulation department chief and they gave her lasix as needed for swelling. She states that the swelling pretty well resolved and she has since stopped taking the lasix. She endorses increased shortness of breath when lying down and with exertion. She states she does not follow the cardiac diet nor does she check her weights daily. She does state she drinks a lot of water daily, likely 16 cup/day at least. She denies any fever, chest pain, palpitations, nausea/vomiting, abdominal pain, or dizziness/lightheadedness. Patient was noted to have anemia on admission for which she states she has chronic anemia and was being seen by hematology for this. She was previously on iron supplementation and is unsure why this was discontinued. She denies any blood in her urine or stool. CBC with WBC 6.7, H/H 7.8/26.2, and PLT 180. CMP with Na 129, K 4.5, and BUN/Cr 18/1.06 with GFR 49. LFTs WNL. Troponin negative. Iron 31, TIBC 474, % sat 7, transferrin 381, and ferritin 19.50. B12 and folate WNL. BNP 2230. Viral panel negative. Chest XR: small pleural effusions. Pt was started on lasix IV and diuresed well. She was concerned about hypotension - she had one reading this morning -100/44, prior to it- was more stable but denied any dizzy spells. NO palpitations, chest pain. Breathing was better, no leg edema. she normally does not take lasix so will not continue it at home but ok to continue entresto she needs a close f/u with her library circulation department chief. She was advised to monitor BP at home and keep log. Will not be decreasing any entresto doses at this time but she will need to keep library circulation department chief or pcp informed about her BP readings She received iron infusion and will be started on iron supplements. Na was 129 but improved to 133 this am. Status at Discharge Functional status at discharge: independent ambulation Overall status at discharge: patient is progressing back to baseline Time Spent with Patient Time attestation: Total time spent providing and/or coordinating discharge services: Exam Narrative: General: female in no acute respiratory distress who is nontoxic appearing, up in a chair HEENT: Normocephalic. Atraumatic. Extraocular movement intact. Sclera clear and anicteric. No facial asymmetry. Neck: Neck was supple. No dominant adenopathy, thyromegaly or masses. Chest: Lungs are rhonchi to auscultation bilaterally. No wheezes or crackles. Speaking full sentences. CV: Heart was regular rate and rhythm. S1-S2. No murmurs, gallops, or rubs. Abd: Abdomen was soft. Nontender. Nondistended. Positive bowel sounds. Ext: No clubbing, cyanosis. Trivial edema to BLE extending to mid coates. DP pulses bilaterally. Neuro: Patient is alert and oriented x4. Strength is 5/5 in both upper and lower extremities. Cranial nerves 2-12 are intact. Speech is clear. Psych: Normal mood and affect. Patient is pleasant and cooperative. Skin: Warm and dry. No rashes noted. Const: General: comfortable DS: Data Data Completed and Pending Labs on day of discharge: Labs from last 24 hours 08/14/25 04:18 WBC 7.4 RBC 3.34 L Hgb 8.1 L Hct 27.6 L MCV 82.6 MCH 24.3 L MCHC 29.3 L RDW 16.4 H Plt Count 165 MPV 9.4 Sodium 133 L Potassium 4.9 Chloride 105 Carbon Dioxide 22 Anion Gap 6 BUN 17 Creatinine 1.10 H Estim Creat Clear Calc 26 Estimated GFR 47 L Glucose 83 Calcium 9.3 Total Bilirubin 0.5 AST 24 ALT 12 Alkaline Phosphatase 71 Total Protein 5.8 L Albumin 3.6 Discharge Plan Discharge Attending physician on discharge: Chris Garner Consulting providers: Daniella Doss; Starr Holland Discharging Clinician: Nydia Izaguirre Patient Disposition: Home Activity: may shower Diet: heart healthy Discharge Instructions: please monitor your BP and keep log. Bring the log to cardiology carla for review. Continue to take your heart medications as directed. Monitor weigh daily. Patient Instructions: Antibiotic Form, Heart Failure (DC) Patient Language: Turkish Stand Alone Forms: General Discharge Information Follow-up/Referrals: [facility] [Provider Group] Referral Note: please follow up with your established library circulation department chief Yanira,MD Ashlee [Primary Care Provider] - 2 Weeks Discharge Medications: New benzonatate 100 mg Capsule 100 mg PO Q6H PRN (Reason: Cough) Qty: 30 0RF Continued amiodarone 200 mg tablet 100 mg PO DAILY melatonin 3 mg Tablet 3 mg PO HS PRN (Reason: Insomnia) acetaminophen 500 mg Tablet 1,000 mg PO TID PRN (Reason: Pain (Scale Score 1-3)) hydrocortisone 2.5 % Cream With Perineal Applicator 1 applic RECTAL DAILY PRN (Reason: Hemorrhoids) timolol 0.25 % Drops 1 drp EACH EYE Q12H (DME) annalisa Wood See Rx Instructions .Route Qty: 1 0RF Rx Instructions: As directed Eliquis 2.5 mg tablet 2.5 mg PO Q12H pantoprazole 40 mg tablet,delayed release (DR/EC) 40 mg PO DAILY polysaccharide iron complex 150 mg iron capsule 150 mg PO DAILY rosuvastatin 5 mg tablet 5 mg PO .QOD sacubitril-valsartan 24-26 mg tablet 1 tablet PO BID Date of admission: 08/12/25 21:56 Primary Care Provider: YaniraAshlee Admitting Provider: hCer Guerrero Attending physician on admission: Cher Guerrero Condition: Stable Quality VTE Prophylaxis VTE prophylaxis: pharmacologic ordered Hospitalist MIPS Heart Failure (Exclusion) Patient has history of Heart Transplant or Left Ventricular Assistive Device?: No IF YES, STOP HERE Heart Failure (Qualifier) Patient has current or prior documentation of LVEF less than or equal to 40%, or mod/servere depressed LVSF?: No IF NO, STOP HERE
--- OUTSIDE RECORDS SUMMARY | 2025-08-19 10:45 | XMS_ITS | Encounter Summary ---
Author Organization [facility] Address [address] [place] [address] Phone Care Team Providers Care Paper Products Machine Operator Name Role Phone Ashlee Doyle MD Primary Care Provider [phone] Cruz Lombardi MD Unavailable [phone] Reason for Visit * Reason Comments Follow-up Encounter Details Date Type Department Care Team (Late st Contact Info) Description 08/19/2025 10:45 AM PRISONER CLASSIFICATION INTERVIEWER Office Visit [facility] [address] [address] Cruz Lombardi MD [address] [address] Iron deficiency anemia, unspecified iron deficiency anemia type (Primary Dx) Social History Tobacco Use Types Packs/Day Years Used Date Smoking Tobacco: Never Smokeless Tobacco: Never Tobacco Cessation:Counseling Given: Not Answered Alcohol Use Standard Drinks/Week Comments Not Currently 0 (1 standard drink = 0.6 oz pur e alcohol) Comments Unknown Sex and Gender Information Value Date Recorded Sex Assigned at Not on file Legal Sex Female 9:23 PM CDT Gender Identity Not on file Sexual Orientation Not on file documented as of this encounter Last Filed Vital Signs Vital Sign Reading Time Taken Comments Blood Pressure 114/66 08/19/2025 11:12 AM PRISONER CLASSIFICATION INTERVIEWER Pulse 68 08/19/2025 11:12 AM PRISONER CLASSIFICATION INTERVIEWER Temperature 36.3 C (97.4 F) 08/19/2025 11:12 AM PRISONER CLASSIFICATION INTERVIEWER Respiratory Rate 16 08/19/2025 11:12 AM PRISONER CLASSIFICATION INTERVIEWER Oxygen Saturation 94% 08/19/2025 11:12 AM PRISONER CLASSIFICATION INTERVIEWER Inhaled Oxygen Concentration - - Weight 53.5 kg (118 lb) 08/19/2025 11:12 AM PRISONER CLASSIFICATION INTERVIEWER Height 166.4 cm (5' 5.5) 08/19/2025 11:12 AM CS T Body Mass Index 19.34 08/19/2025 11:12 AM PRISONER CLASSIFICATION INTERVIEWER documented in this encounter Functional Status * BP Answer Date of Assessment Author 114/66 08/19/2025 11:12 AM Ruthy Messer mp, RN * Temp Answer Date of Assessment Author 97.4 08/19/2025 11:12 AM PRISONER CLASSIFICATION INTERVIEWER Ruthy Bedolla mp, RN * Pulse Answer Date of Assessment Author 68 08/19/2025 11:12 AM Ruthy Messer mp, RN * Resp Answer Date of Assessment Author 16 08/19/2025 11:12 AM Ruthy Messer mp, RN * SpO2 Answer Date of Assessment Author 94 08/19/2025 11:12 AM Ruthy Messer mp, RN documented as of this encounter Mental Status * BP Answer Entry Date Author 114/66 08/19/2025 11:12 AM Ruthy Messer mp, RN * Temp Answer Entry Date Author 97.4 08/19/2025 11:12 AM Ruthy Messer mp, RN * Pulse Answer Entry Date Author 68 08/19/2025 11:12 AM Ruthy Messer mp, RN * SpO2 Answer Entry Date Author 94 08/19/2025 11:12 AM Ruthy Messer mp, RN documented in this encounter Plan of Treatment Upcoming Encounters Date Type Department Care Team (Late st Contact Info) Description 09/02/2025 10:45 AM PRISONER CLASSIFICATION INTERVIEWER [facility] [address] [address] Cruz Lombardi MD [address] [place] [address] documented as of this encounter Visit Diagnoses Diagnosis Iron deficiency anemia, unspecified iron deficiency anemia type- Primary documented in this encounter Care Teams Paper Products Machine Operator Relationship Specialty Start Date End Date Ashlee Doyle MD [address] [address] PCP - General Internal Medicine 07/22/25 Cruz Lombardi MD [address] [place] [address] Consulting Physician Oncology 07/24/25 documented as of this encounter
--- OUTSIDE RECORDS SUMMARY | 2025-08-19 12:15 | XMS_ITS | Encounter Summary ---
Author Organization [facility] Address [address] [place] [address] Phone Care Team Providers Care Public Health Engineer Name Role Phone Ashlee Doyle MD Primary Care Provider [phone] Cruz Lombardi MD Unavailable [phone] Encounter Details Date Type Department Care Team (Late st Contact Info) Description 08/19/2025 12:[address] TRANSCRIBER Lab [facility] [address] [address] Iron deficiency anemia, unspecified iron deficiency anemia type Social History Tobacco Use Types Packs/Day Years [...] of Assessment Author 97.4 08/19/2025 11:12 AM Ruthy Messer mp, RN * Pulse Answer Date of Assessment Author 68 08/19/2025 11:12 AM Ruthy Messer mp, RN * Resp Answer Date of Assessment Author 16 08/19/2025 11:12 AM Ruthy Messer mp, RN * SpO2 Answer Date of Assessment Author 94 08/19/2025 11:[address] TRANSCRIBER Ruthy Bedolla mp, RN documented as of this encounter Mental Status * BP Answer Entry Date Author 114/66 08/19/2025 11:12 AM Ruthy Messer mp, RN * Temp Answer Entry Date Author 97.4 08/19/2025 11:[address] TRANSCRIBER Ruthy Bedolla mp, RN * Pulse Answer Entry Date Author 68 08/19/2025 11:[address] TRANSCRIBER Ruthy Bedolla mp, RN * SpO2 Answer Entry Date Author 94 08/19/2025 11:12 AM Ruthy Messer mp, RN documented in this encounter Progress Notes * Wendi Haro RN - 08/19/2025 12:15 PM CST Lab drawn peripherally. Patient tolerated well. Gauze and coban applied. Patient's performance status has not changed since arrival to clinic. Patient discharged per ambulation unaccompanied. T TRANSCRIBER documented in this encounter Plan of Treatment Upcoming Encounters Date Type Department Care Team (Late st Contact Info) Description 09/02/2025 10:[address] TRANSCRIBER [facility] [address] [phone] Cruz Lombardi MD [address] [facility] [address] [place] [address] documented as of this encounter Procedures Procedure Name Priority Date/Time Associated Diagnosis Comments CBC WITH AUTO DIFF OH Routine 08/19/2025 11:[address] TRANSCRIBER documented in this encounter Results * (ABNORMAL) CBC WITH AUTO DIFF [place] (08/19/2025 11:[address] TRANSCRIBER) WBC 7.2 4.0 - 10.0 10*3/uL [facility] HGB 8.6(L) 11.2 - 15.7 g/dL [facility] HCT 28.6(L) 34.1 - 44.9 % [facility] PLT 189 163 - 369 10*3/uL [facility] MPV 9.3(L) 9.4 - 12.4 fL [facility] RBC 3.39(L) 3.93 - 5.22 10*6/uL [facility] MCV 84 79 - 95 fL [facility] MCH 25.4(L) 25.6 - 32.2 pg [facility] MCHC 30.1(L) 32.2 - 36.5 g/dL [facility] RDW 19.7(H) 11.6 - 14.4 % [facility] Neutrophils % 57.3 36.0 - 66.0 % [facility] Lymphocytes % 28.9 19.0 - 40.0 % [facility] Monocytes % 11.0 4.1 - 12.1 % [facility] Eosinophils % 1.3 0.0 - 3.5 % [facility] Basophils % 1.1(H) 0.0 - 1.0 % [facility] Absolute Neutrophils 4.1 1.4 - 6.6 10*3/uL [facility] Absolute Lymphocytes 2.1 0.8 - 4.0 10*3/uL [facility] Absolute Monocytes 0.8 0.2 - 1.2 10*3/uL [facility] Absolute Eosinophils 0.1 0.0 - 0.4 10*3/uL [facility] Absolute Basophils 0.1 0.0 - 0.1 10*3/uL [facility] 08/19/2025 11:[address] TRANSCRIBER us Cruz Lombardi MD LAB SEND OUTS Final Result [facility] [place] [address], documented in this encounter Visit Diagnoses Diagnosis Iron deficiency anemia, unspecified iron deficiency anemia type documented in this encounter Care Teams Public Health Engineer Relationship Specialty Start Date End Date Yanira, Mounir M, MD [address] [address] PCP - General Internal Medicine 07/22/25 Cruz Lombardi MD [address] [place] [phone] Consulting Physician Oncology 07/24/25 documented as of this encounter
--- OUTSIDE RECORDS SUMMARY | 2025-08-20 09:02 | XMS_ITS ---
Author Organization [facility] Address [address] [place] [address] Care Team Providers Care Gum Scoring Machine Operator Name Role Phone Miscellaneous, Not In File Unavailable Unava ilable Sheryl Latham MD Unavailable [phone] Ashlee Doyle MD Primary Care Provider [phone] Jonh Junior MD Unavailable Active Problems Problem [...] ready for that. -home spironolactone, -02/21 BNP >29641, ordered Cardio c/s, TTE, Trop, EKG, tele [...] stable from prior notes from [facility] - Fundus exam and photos appear stable [...] continue to monitor with her general utility maintenance repairer Assessment & Plan (04/01/2022 3:54 PM CDT): [...] (ERM) peel right eye (OD) 2007 at [facility]. Asked patient to bring notes or forward prior to next visit. Follows with Dr. Izaguirre at [facility]. [facility] have [facility] opinion 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
--- OUTSIDE RECORDS SUMMARY | 2025-08-20 09:02 | XMS_ITS | Clinical Summary ---
Author Organization [facility] Address [address] [place] [address] Care Team Providers Care Tubing Mill Operator Name Role Phone Ashlee Doyel MD Primary Care Provider [phone] Melvin Pedraza MD Unavailable Allergies Active Allergy [...] exertion 06/06/2018 Coronary artery disease invo lving cabazon coronary artery of cabaz[place] heart without angina pectoris 06/06/2018 Carotid bruit [...] Td 06/19/2016 Tdap (Generic) 11/10/2012 Zoster (Zostavax) 42180 Unt/0.65Ml 03/29,09/21/2018,09/19/2013,2009 Family History Medical History Relation [...] on file Legal Sex Female 1:30 PM WET ROOM WORKER Gender Identity Not on file Sexual Orientation Not on file Last Filed Vital Signs Vital Sign Reading Time Taken Comments Blood Pressure 140/62 08/21/2020 1:18 PM WET ROOM WORKER Pulse 97 08/21/2020 1:18 PM WET ROOM WORKER Temperature - - Respiratory Rate - - Oxygen Saturation - - Inhaled Oxygen Concentration - - Weight 67.5 kg (148 lb 12.8 oz) 08/21/2020 1:18 PM WET ROOM WORKER Height 165.1 cm (5' 5) 08/21/2020 1:18 PM WET ROOM WORKER Body Mass Index 24.76 08/21/2020 1:18 PM WET ROOM WORKER Plan of Treatment Health Maintenance Due Date [...] file Type:Indemnity Address: ATTN CLAIMS [address] MEDICARE Care Teams Tubing Mill Operator Relationship Specialty Start Date End Date Ashlee Doyle MD PCP - General INTERNAL MEDICINE 02/18/20 Melvin Pedraza MD [address] [address] Referring Physician VASCULAR SURGERY 02/18/20
--- OUTSIDE RECORDS SUMMARY | 2025-08-20 09:02 | XMS_ITS | Clinical Summary ---
Author Organization [facility] Address [address] [facility] [place] [address] Care Team Providers Care Plant Hr Manager Name Role Phone Olivia Foss MD Primary Care Provider Unavailable Source Comments [facility],non-owned Affiliates and Associated Physician Practices is amultiple site organization consisting of ambulatory clinics and hospital sitesin [place], [place], [place] and [place]. This disclosure is being madepursuant to the Care Everywhere program and may not contain all information available regarding this patient. Last updated 18.[facility] Social History Tobacco Use Types Packs/Day Years Used Date Smoking Tobacco: Never Assessed Comments Unknown Sex and Gender Information Value Date Recorded Sex Assigned at Not on file Legal Sex Female 6:20 AM DRY HOUSE WORKER Gender Identity Not on file Sexual [...] age to complete this topic Insurance MEDICARE [facility] Care Teams Plant Hr Manager Relationship Specialty Start Date End Date Olivia Foss MD PCP - General 02/05/19
--- OUTSIDE RECORDS SUMMARY | 2025-08-20 09:02 | XMS_ITS | Encounter Summary ---
Author Organization [facility] Address [address] [place] [address] Phone Care Team Providers Care Embedded Firmware Engineer Name Role Phone Miscellaneous, Not In File Unavailable Unava ilable Sheryl Latham MD Unavailable [phone] Ashlee Doyle MD Primary Care Provider [phone] Jonh Junior MD Unavailable Encounter Details Date Type Department Care Team (Late st Contact Info) Description 06/30/2025 Results Follow-Up [facility] Medicine Cardiology [address], [address] [place] [address] Jonh Junior MD [address] [facility] [address] [place] [address] Pulmonary Function Test - Social [...] on file Legal Sex Female 2:10 AM MD ALLERGY IMMUNOLOGY Gender Identity Not on file Sexual Orientation Not on file Occupation Industry Job Start Date Job End Date retired Not on file Not on file Not on file documented as of this encounter Plan of Treatment Not on file documented as of this encounter Visit Diagnoses Not on filedocumented in this encounter Care Teams Embedded Firmware Engineer Relationship Specialty Start Date End Date Ashlee Doyle MD [address] [place] [address] PCP - General Internal Medicine 09/05/23 Miscellaneous, Not In File 03/24/21 Sheryl Latham MD Medical Oncologist/Head Of Merchandise Buying Medical Oncology 05/12/21 Jonh Junior MD [address] [place] [address] Referring Physician Cardiology 09/05/23 documented as of this encounter
--- OUTSIDE RECORDS SUMMARY | 2025-08-20 09:02 | XMS_ITS | Data Portability ---
Author Organization [facility], [employer] Address [address] [address] Care Team Providers Care Reservation Clerk Name Role Phone ASHLEE DOYLE Primary Care Provider [phone] Assessment Encounter Date Assessment Date Assessment LastModified [...] panel w/ direct LDL, serum 2024 025 [facility], [address] [place], [address], 07/23/2025 05:34:31 CMP, serum or plasma 2024 025 [facility], [address] [place], [address], 07/23/2025 05:34:31 CBC w/ auto diff 2024 025 [facility], [address] [place], [address], 07/23/2025 05:34:31 iron panel, serum or plasma 2024 025 [facility], [address] [place], [address], 07/21/2025 17:43:33 vitamin B12 + folate, serum or blood 2024 [facility], [address] [place], [address], 07/21/2025 17:43:33 pro BNP (pro B-type natriuret ic peptide), serum or plasma 2024 [facility], [address] [place], [address], 07/21/2025 17:43:32 HbA1c (hemoglob in A1c), blood 2024 [facility], [address] [place], [address], 04/16/2025 17:51:03 C-peptide , serum 2024 025 [facility], [address] [place], [address], 04/17/2025 11:48:45 magnesium , QN, serum or plasma 2024 025 [facility], [address] [place], [address], 07/23/2025 13:25:56 TSH, serum or plasma 2024 025 [facility], [address] [place], [address], 04/16/2025 17:51:03 pro BNP (pro B-type natriuret ic peptide), serum or plasma 2024 025 [facility], [address] [place], [address], 04/02/2025 12:40:39 CMP, serum or plasma 2024 025 [facility], [address] [place], [address], 04/16/2025 17:51:03 CBC w/ auto diff 2024 025 [facility], [address] [place], [address], 07/23/2025 13:25:56 iron panel, serum or plasma 2024 025 [facility], [address] [place], [address], 04/16/2025 17:51:03 urinalysi s, dipstick 2024 025 [facility], [facility], [address] [place] [address] [address] [place] [address], [place], [address], 04/02/2025 13:25:36 vitamin B12 + folate, serum or blood 2024 025 [facility], [address] [place], [address], 04/16/2025 17:51:03 vitamin B12 + folate, serum or blood 2024 025 [facility], [address] [place], [address], 10/23/2024 14:39:51 magnesium , QN, serum or plasma 2024 025 [email or web address] [facility], [address] [place], [address], 12/31/2024 15:32:57 CMP, serum or plasma 2024 025 [facility], [address] [place], [address], 10/23/2024 14:39:51 CBC w/ auto diff 2024 025 [facility], [address] [place], [address], 10/23/2024 20:59:59 hemoglobi n A1c, QN, blood 2024 025 [facility], [address] [place], [address], 10/23/2024 20:59:59 lipid panel w/ direct LDL, serum 2024 025 [facility], [address] [place], [address], 10/23/2024 14:39:51 TSH, serum or plasma [address] [facility], [address] [place], [address], 12/31/2024 15:32:57 pro BNP (pro B-type natriuret ic peptide), serum or plasma 2024 025 [facility], [address] [place], [address], 10/23/2024 20:59:59 iron panel, serum or plasma 2024 025 [facility], [address] [place], [address], 10/23/2024 20:59:59 CMP, serum or plasma 2023 024 [facility], [address] [place], [address], 06/25/2024 04:09:57 magnesium , QN, serum or plasma 2023 024 [facility], [address] [place], [address], 06/25/2024 04:09:57 CBC w/ auto diff - 8 weeks from 04/17/242023 024 [facility], [address] [place], [address], 05/16/2024 14:00:39 iron panel, serum or plasma - 8 weeks from 04/17/242023 024 [facility], [address] [place], [address], 04/25/2024 04:05:03 Referral pain managemen t referral 2024 025 WADDY Hipolito Palm MD, [address] [facility], [place], [address], 04/02/2025 16:31:16 Procedures None recorded. Surgeries None recorded. Imaging XR, cervical spine, 2 or 3 view 2024 025 [facility] ([facility]), [address] [place], [address], 07/19/2025 12:24:31 US, duplex, carotid artery 2024 025 [facility], [facility], [address], [place], [address], 07/09/2025 17:47:54 MAMMO, screening , digital, bilateral 2024 025 [facility] ([facility]), [address] [place], [address], 04/27/2025 18:51:03 electroca rdiogram 2024 025 [facility], [facility], [address], [place], [address], 04/02/2025 13:16:02 US, duplex, carotid artery 2024 025 [facility], [facility], [address] [facility] [address], [place], [address], 04/02/2025 14:12:06 CT, chest + abdomen + pelvis, w/o contrast 2024 025 [facility] ([facility]), [address] [place], [address], 10/23/2024 16:36:21 XR, chest, 2 view 2024 025 [facility] ([facility]), [address] [place], [address], 10/23/2024 16:48:57 XR, chest, 2 view - 6 weeks from 04/07/242023 024 [facility] ([facility]), [address] [place], [address], 05/16/2024 13:44:01 Medication Orders polysacch aride iron complex 150 mg iron capsule 2024 025 [facility] [address], [address], 07/09/2025 12:37:22 cyanocoba reggie (vit B-12) 1,000 mcg sublingua l tablet 2024 025 [facility] [address], [address], 07/09/2025 12:37:22 acetamino phen 500 mg tablet 2024 025 [facility] [address], [address], 04/02/2025 12:38:39 Tylenol Extra Strength 500 mg tablet 2024 025 [facility] [address], [address], 04/02/2025 12:38:39 Aspercrem e (lidocain e HCl) 4 % topical 2024 025 [facility] [address], [address], 07/09/2025 12:26:45 Creon 24,000-76 ,000-120, 000 unit capsule,d elayed release 2024 025 [facility] [address], [address], 11/07/2024 13:12:54 Eliquis 2.5 mg tablet 2024 025 [facility] ZIA [address], [address], 10/08/2024 12:13:09 triamcino lone acetonide 0.1 % topical cream 2023 024 [facility] [address], [address], 06/18/2024 12:41:20 Eliquis 2.5 mg tablet 2023 024 [facility] [address], [address], 06/18/2024 12:41:17 fluconazo le 100 mg tablet 2023 024 [facility] [address], [address], 06/14/2024 18:22:20 ferrous sulfate 300 mg (60 mg iron)/5 mL oral liquid 2023 024 [facility] [address], [address], 06/14/2024 18:22:14 Patient TargetsNo targets recorded. Patient Instructions Encounter Date Encounter Id Patient Instructions Last Modified By Organization Details Last Modified Time 04/18/2024 [id number] pneumonia: care instructions mshenouda Not available 04/18/2024 12:31:54 vaginal yeast infection: care instructions mshenouda Not available 04/18/2024 12:31:54 iron deficiency anemia: care instructions mshenouda Not available 04/18/2024 12:31:54 heart failure: care instructions mshenouda Not available 04/18/2024 12:31:54 learning about heart failure mshenouda Not available 04/18/2024 12:31:54 06/18/2024 [id number] learning about swallowing problems mshenouda Not available 06/18/2024 12:41:18 mammogram: about this test mshenouda Not available 06/18/2024 12:41:18 heart failure: care instructions mshenouda Not available 06/18/2024 12:41:18 learning about heart failure mshenouda Not available 06/18/2024 12:41:18 10/08/2024 [id number] mammogram: about this test mshenouda Not available 10/08/2024 12:13:06 high cholesterol : care instructions mshenouda Not available 10/08/2024 12:13:06 carotid stenosis : care instructions mshenouda Not available 10/08/2024 12:13:05 iron deficiency anemia: care instructions mshenouda Not available 10/08/2024 12:13:06 04/02/2025 [id number] learning about swallowing problems mshenouda Not available [...] minutes. mshenouda Not available 04/02/2025 12:41:49 07/09/2025 [id number] Peripheral Arterial Disease (PAD): Care Instructions mshenouda Not available 07/09/2025 12:37:17 (RANGEL) ankle brachial index* MIGUE Not available 07/09/2025 17:47:49 mammogram: about this test mshenouda Not available 07/09/2025 12:37:17 neck pain: care instructions mshenouda Not available 07/09/2025 12:37:17 learning about healthy weight mshenouda Not available 07/09/2025 12:37:17 anemia: care instructions mshenouda Not available 07/09/2025 12:37:17 carotid stenosis : care instructions mshenouda Not available 07/09/2025 12:37:17 heart failure: care instructions mshenouda Not available 07/09/2025 12:37:16 learning about heart failure mshenouda Not available 07/09/2025 12:37:17 Reason for Referral Pain Management Referral for Low back pain Referring Physician: Ashlee Doyle, Internal Medicine, Encounter Date: 04/02/2025 Results Created Date Observation Date Name Description Value Unit Range Abnormal Flag Note LastModifiedBy Organization Detail LastModifiedTime 08/05/2008/05/2025 iron + total iron- jesse ng capac ity (TIBC ), serum iron, serum 20 ug/dL low: 50ug/d Lhigh: 212ug/ dL low Not Available Not Available 08/13/2025 13:39:19 08/05/2008/05/2025 iron + total iron- jesse ng capac ity (TIBC ), serum iron-binding capacity, unsaturated, serum 457 ug/dL low: 155ug/ dLhigh : 355ug/ dL high Not Available Not Available 08/13/2025 13:39:19 08/05/2008/05/2025 iron + total iron- jesse ng capac ity (TIBC ), serum TIBC (total iron-binding capacity), serum 477 ug/dL low: 261ug/ dLhigh : 478ug/ dL Not Available Not Available 08/13/2025 13:39:19 08/05/2008/05/2025 iron + total iron- jesse ng capac ity (TIBC ), serum iron saturation, serum 4 % low: 20%hig h: 50% low Not Available Not Available 08/13/2025 13:39:19 08/05/2008/05/2025 iron + total iron- jesse ng capac ity (TIBC ), serum no coding or coding display name was found Releas e to patien t->Imm ediate Not Available Not Available 13:39:19 08/05/2008/05/2025 iron + total iron- jesse ng capac ity (TIBC ), serum lab interpretati on Abnorm al Not Available Not Available 13:39:19 08/05/2008/05/2025 CBC w/ auto diff WBC, auto, blood 7 10*3/ uL low: 410*3/ uLhigh : 1010*3 /uL Not Available Not Available 08/13/2025 13:39:19 08/05/2008/05/2025 CBC w/ auto diff hemoglobin (Hb), blood 8.2 g/dL low: 11.2g/ dLhigh : 15.7g/ dL low Not Available Not Available 08/13/2025 13:39:19 08/05/2008/05/2025 CBC w/ auto diff hematocrit, automated count, blood 27.8 % low: 34.1%h igh: 44.9% low Not Available Not Available 08/13/2025 13:39:19 08/05/2008/05/2025 CBC w/ auto diff platelets, auto, blood 192 10*3/ uL low: [address]2748* 3/uLhi gh: 52738* 3/uL Not Available Not Available 08/13/2025 13:39:19 08/05/2008/05/2025 CBC w/ auto diff platelet mean volume, qn, automated, blood (obs) 9.2 fL low: 9.4fLh igh: 12.4fL low Not Available Not Available 08/13/2025 13:39:19 08/05/2008/05/2025 CBC w/ auto diff RBC count, blood 3.34 10*6/ uL low: 3.9310 *6/uLh igh: 5.2210 *6/uL low Not Available Not Available 08/13/2025 13:39:19 08/05/2008/05/2025 CBC w/ auto diff MCV, blood 83 fL low: 79fLhi gh: 95fL Not Available Not Available 08/13/2025 13:39:19 08/05/20 25 08/05/2025 CBC w/ auto diff MCH, qn, automated (obs) 24.6 pg low: 25.6pg high: 32.2pg low Not Available Not Available 08/13/2025 13:39:19 08/05/20 25 08/05/2025 CBC w/ auto diff MCHC, qn, automated (obs) 29.5 g/dL low: 32.2g/ dLhigh : 36.5g/ dL low Not Available Not Available 08/13/2025 13:39:19 08/05/20 25 08/05/2025 CBC w/ auto diff erythrocyte distribution width, ratio, automated (obs) 16.1 % low: 11.6%h igh: 14.4% high Not Available Not Available 08/13/2025 13:39:19 08/05/20 25 08/05/2025 CBC w/ auto diff neutrophils/ 100 leukocytes, automated, blood (obs) 64.2 % low: 36%hig h: 66% Not Available Not Available 08/13/2025 13:39:19 08/05/2008/05/2025 CBC w/ auto diff lymphocytes/ 100 leukocytes, automated, blood (obs) 24.2 % low: 19%hig h: 40% Not Available Not Available 08/13/2025 13:39:19 08/05/2008/05/2025 CBC w/ auto diff monocytes/10 0 leukocytes, automated, blood (obs) 9.1 % low: 4.1%hi gh: 12.1% Not Available Not Available 08/13/2025 13:39:19 08/05/2008/05/2025 CBC w/ auto diff eosinophils/ 100 leukocytes, automated, blood (obs) 1.2 % low: 0%high : 3.5% Not Available Not Available 08/13/2025 13:39:19 08/05/2008/05/2025 CBC w/ auto diff basophils/10 0 leukocytes, automated, blood (obs) 1 % low: 0%high : 1% Not Available Not Available 08/13/2025 13:39:19 08/05/2008/05/2025 CBC w/ auto diff neutrophil count, absolute (anc), blood (obs) 4.5 10*3/ uL low: 1.410* 3/uLhi gh: 6.610* 3/uL Not Available Not Available 08/13/2025 13:39:19 08/05/2008/05/2025 CBC w/ auto diff lymphocytes, quantitative , blood, automated count (obs) 1.7 10*3/ uL low: 0.810* 3/uLhi gh: 410*3/ uL Not Available Not Available 08/13/2025 13:39:19 08/05/2008/05/2025 CBC w/ auto diff monocytes, count, automated, blood (obs) 0.6 10*3/ uL low: 0.210* 3/uLhi gh: 1.210* 3/uL Not Available Not Available 08/13/2025 13:39:19 08/05/2008/05/2025 CBC w/ auto diff eosinophils, auto, blood, absolute 0.1 10*3/ uL low: 010*3/ uLhigh : 0.410* 3/uL Not Available Not Available 08/13/2025 13:39:19 08/05/2008/05/2025 CBC w/ auto diff basophils, quant, auto, blood (obs) 0.1 10*3/ uL low: 010*3/ uLhigh : 0.110* 3/uL Not Available Not Available 08/13/2025 13:39:19 08/05/2008/05/2025 CBC w/ auto diff lab interpretati on Abnorm al Not Available Not Available 13:39:19 08/05/2008/06/2025 vitam in B12, serum vitamin B12, serum 209 pg/mL low: 180pg/ mLhigh : 914pg/ mL Not Available Not Available 08/13/2025 13:39:19 08/05/2008/06/2025 vitam in B12, serum no coding or coding display name was found Releas e to patien t->Imm ediate Not Available Not Available 13:39:19 08/05/2008/05/2025 retic ulocy te count , auto, blood reticulocyte count, auto, blood 1.71 % low: 0.5%hi gh: 1.7% high Not Available Not Available 08/13/2025 13:39:19 08/05/20 25 08/05/2025 retic ulocy te count , auto, blood hemoglobin, qn, automated, reticulocyte s (obs) 23.8 pg low: 28.2pg high: 36.6pg low RET-H e is a direc t asses sment of incor porat ion of iron into eryth rocyt e hemog lobin . It provi abel an indir ect measu re of the iron avail able for new eryth ropoi esis over past 2-4 days. Not Available Not Available 08/13/2025 13:39:19 08/05/2008/05/2025 retic ulocy te count , auto, blood no coding or coding display name was found Releas e to patien t->Imm ediate Not Available Not Available 13:39:19 08/05/2008/05/2025 retic ulocy te count , auto, blood lab interpretati on Abnorm al Not Available Not Available 13:39:19 08/05/2008/05/2025 lacta te dehyd rogen ase, QN, lacta te to pyruv ate react ion, serum or plasm a lactate dehydrogenas e, qn, lactate to pyruvate reaction, serum or plasma 195 U/L low: 140U/L high: 271U/L Not Available Not Available 08/13/2025 13:39:19 08/05/2008/05/2025 lacta te dehyd rogen ase, QN, lacta te to pyruv ate react ion, serum or plasm a no coding or coding display name was found Releas e to patien t->Imm ediate Not Available Not Available 13:39:19 08/05/20 25 08/06/2025 hapto globi n, serum hapto 176 mg/dL low: 44mg/d Lhigh: 215mg/ dL Not Available Not Available 08/13/2025 13:39:19 08/05/2008/06/2025 hapto globi n, serum no coding or coding display name was found Releas e to patien t->Imm ediate Not Available Not Available 13:39:19 08/05/20 25 08/06/2025 cassius tin, serum or plasm a ferritin, serum or plasma 17 NG/mL low: 11NG/m Lhigh: 307NG/ mL Not Available Not Available 08/13/2025 13:39:18 08/05/2008/06/2025 cassius tin, serum or plasm a no coding or coding display name was found Gama guadalupe to leighann t->Imm ediate Not Available Not Available 13:39:18 08/05/2008/05/2025 CMP, serum or plasm a glucose, qn [mass/volume ], serum or plasma 98 mg/dL low: 70mg/d Lhigh: 105mg/ dL Not Available Not Available 08/13/2025 13:39:18 08/05/2008/05/2025 CMP, serum or plasm a BUN (blood urea nitrogen), serum or plasma 13 mg/dL low: 7mg/dL high: 25mg/d L Not Available Not Available 08/13/2025 13:39:18 08/05/2008/05/2025 CMP, serum or plasm a creatinine, serum or plasma 1.1 mg/dL low: 0.6mg/ dLhigh : 1.2mg/ dL Not Available Not Available 08/13/2025 13:39:18 08/05/2008/05/2025 CMP, serum or plasm a sodium, serum or plasma 136 text: 136 - 145 mEq/L Not Available Not Available 08/13/2025 13:39:18 08/05/2008/05/2025 CMP, serum or plasm a potassium, serum or plasma 4.2 text: 3.5 - 5.1 mEq/L Not Available Not Available 08/13/2025 13:39:18 08/05/2008/05/2025 CMP, serum or plasm a chloride, serum or plasma 102 text: 98 - 107 mEq/L Not Available Not Available 08/13/2025 13:39:18 08/05/2008/05/2025 CMP, serum or plasm a bicarbonate, quant, serum 25 text: 21 - 31 mEq/L Not Available Not Available 08/13/2025 13:39:18 08/05/2008/05/2025 CMP, serum or plasm a bilirubin, total, serum or plasma 0.4 mg/dL low: 0.3mg/ dLhigh : 1mg/dL Not Available Not Available 08/13/2025 13:39:18 08/05/2008/05/2025 CMP, serum or plasm a alkaline phosphatase, serum or plasma 79 U/L low: 34U/Lh igh: 104U/L Not Available Not Available 08/13/2025 13:39:18 08/05/2008/05/2025 CMP, serum or plasm a AST/SGOT (aspartate aminotransfe rase), serum or plasma 16 U/L low: 13U/Lh igh: 39U/L Not Available Not Available 08/13/2025 13:39:18 08/05/2008/05/2025 CMP, serum or plasm a ALT (alanine aminotransfe rase), serum or plasma 9 U/L low: 7U/Lhi gh: 52U/L Not Available Not Available 08/13/2025 13:39:18 08/05/2008/05/2025 CMP, serum or plasm a protein, total, serum 5.9 g/dL low: 6.4g/d Lhigh: 8.9g/d L low Not Available Not Available 08/13/2025 13:39:18 08/05/2008/05/2025 CMP, serum or plasm a albumin, qn, bcg dye, serum or plasma 4.1 g/dL low: 3.5g/d Lhigh: 5.7g/d L Not Available Not Available 08/13/2025 13:39:18 08/05/2008/05/2025 CMP, serum or plasm a calcium, serum or plasma 9 mg/dL low: 8.6mg/ dLhigh : 10.3mg /dL Not Available Not Available 08/13/2025 13:39:18 08/05/2008/05/2025 CMP, serum or plasm a anion gap 4, serum or plasma (obs) 13.2 text: 7.0 - 15.0 mEq/L Not Available Not Available 08/13/2025 13:39:18 08/05/2008/05/2025 CMP, serum or plasm a globulin, qn, calculated, serum 1.8 g/dL low: 2g/dLh igh: 3.5g/d L low Not Available Not Available 08/13/2025 13:39:18 08/05/2008/05/2025 CMP, serum or plasm a eGFR 48 text: >60 mL/min /1.73m 2 low This eGFR is calcu lated using 2020 CKD-E PI Creat inine equat ion witho ut race modif ier based on the NKF-A SN task force recom menda tions Equat ion: eGFR= 142*m in(SC r/k,1 )a*ma x(SCr /k,1) -1.20 0*0.9 938Ag e*1.0 12 (if femal e), where SCr is serum creat inine , k is 0.7 for femal es and 0.9 for males , and a is -0.24 1 for femal es and -0.30 2 for males Not Available Not Available 08/13/2025 13:39:18 08/05/20 25 08/05/2025 CMP, serum or plasm a no coding or coding display name was found Releas e to patien t->Imm ediate IS THE PATIEN T REQUIR ED TO BE FASTIN G FOR 8 HOURS? ->No Not Available Not Available 13:39:18 08/05/20 25 08/05/2025 CMP, serum or plasm a lab interpretati on Abnorm al Not Available Not Available 13:39:18 04/03/20 24 04/02/2024 XR, chest , 2 view No observ ation record ed. [address], [address], 04/18/2024 12:11:50 04/05/20 24 04/05/2024 XR, chest , 2 view No observ ation record ed. [address], [place], [address], 04/18/2024 12:11:49 05/16/20 24 05/16/2024 XR, chest , 2 view No observ ation record ed. [facility] [address] [place], [address], 06/18/2024 12:28:47 10/23/19 25 10/23/2024 XR, chest , 2 view No observ ation record ed. [facility] [address] [place], [address], 04/02/2025 12:24:33 10/23/19 25 10/23/2024 CT, chest + abdom en + pelvi s, w/o contr ast No observ ation record ed. [facility] [address] [place], [address], 04/02/2025 12:24:33 11/27/19 25 11/26/2024 US, liver No observ ation record ed. [facility] [address] [place], [address], 04/02/2025 12:24:33 01/16/20 25 01/15/2025 XR, hip, bilat eral No observ ation record ed. [facility] [address], [place], [address], 04/02/2025 12:24:33 02/18/20 25 02/16/2025 XR, chest , 2 view No observ ation record ed. [facility] ([facility]) [address] [place], [address], 04/02/2025 12:24:33 04/02/20 25 04/02/2025 elect rocar diogr am No observ ation record ed. [facility], [place] [address], [place], [address], 07/09/2025 12:35:19 04/02/20 25 04/02/2025 US, savannahle x, carot id arter y No observ ation record ed. [facility], [place] [id number], [place], [address], 07/09/2025 12:35:19 04/02/20 25 04/02/2025 elect rocar diogr am No observ ation record ed. [facility], [place] [id number], [place], [address], 07/09/2025 12:35:19 04/27/20 25 04/16/2025 MAMMO , scree aniya, digit al, bilat eral No observ ation record ed. [facility] [address] [place], [address], 07/09/2025 12:35:18 07/09/2007/09/2025 US, duple x, carot id arter y No observ ation record ed. [place] [id number], [place], [address], 07/09/2025 17:47:54 07/19/2007/19/2025 XR, cervi clay spine , 2 or 3 view No observ ation record ed. [facility] [address] [place], [address], 07/23/2025 13:26:58 08/12/2008/12/2025 XR, chest , 2 view No observ ation record ed. [place] [address], [place], [address], 08/13/2025 10:31:26 Result Notes None recorded. Problems Name Problem SNOMED Code Status Onset Date Resolution Date Notes Provider Name and Address Organization Details Recorded Time Benign hypertens ion 20754656 Active 2016 Not Available [facility] 14:49:31 Hyperlipi demia 41390679 Active 2016 Not Available [facility] 14:49:31 Hemorrhoi ds 02177900 Active 2016 Not Available [facility] 14:49:31 Left bundle branch block 60971102 Active 2016 sees cardiolog y once a year Not Available [facility] 14:49:31 Osteopeni a 205163862 Active 2016 Not Available [facility] 3 14:49:31 Osteoarth ritis 029589901 Active 2016 Not Available [facility] 3 14:49:31 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 Not Available [facility] 3 14:49:31 Transient cerebral ischemia 881854257 Active 2016 Not Available [facility] 3 14:49:31 Allergic rhinitis 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 78016976 Active 2016 Not Available [facility] 3 14:49:31 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 541324622 Active 2016 Not Available [facility] 3 14:49:31 Carotid artery stenosis 01961528 Active 2016 Not Available [facility] 3 14:49:31 Focal onset epileptic seizure 38439884 Active 2017 Not Available [facility] 3 14:49:31 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 664909017 Active 2017 Not Available [facility] 3 14:49:31 History of Malignant melanoma 070192273 Active 2018 [facility] Available [facility] 14:49:31 Gastroeso phageal reflux disease without esophagit is 569069380 Active 2018 Not Available [facility] 3 14:49:31 Ophthalmi c migraine 94054297 Active 2018 on ophth note 07/24/19 Not Available [facility] 3 14:49:31 Open-angl e glaucoma of left eye 692503939 Active 2018 on ophth note 07/24/19 Not Available [facility] 3 14:49:31 Idiopathi c periphera l neuropath y 72123609 Active 2019 Not Available [facility] 3 14:49:31 Family history of diabetes mellitus 219213027 Active 2019 Not Available [facility] 3 14:49:31 Neoplasm of supraclav icular region 289841051 Active 2020 Not Available [facility] 3 14:49:31 Hyponatre kasandra 72518742 Active 2020 Not Available [facility] 3 14:49:31 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, face AND/OR neck 20123218 Active 2020 Not Available [facility] 3 14:49:31 Coronary arteriosc lerosis 56468430 Active 2020 non occlusive per cardiolog y note 06/11/21 Not Available [facility] 3 14:49:31 Paroxysma l atrial fibrillat ion 323529639 Active 2020 [facility] Available [facility] 3 14:49:31 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 Not Available [facility] 3 14:49:31 Macrocyto sis 275975398 Active 2020 Not Available [facility] 3 14:49:31 History of SARS-CoV- 2 68586974343 3919562 Active 2021 Not Available [facility] 3 14:49:31 Long-term drug therapy Active 2021 Not Available [facility] 3 14:49:31 Increased frequency of urination 127744051 Active 2021 Not Available [facility] 3 14:49:31 Vitamin B deficienc y 54852332 Active 2022 Not Available [facility] 3 14:49:31 Mixed urinary incontine nce 891028825 Active 2022 Not Available [facility] 3 14:49:31 Hypomagne semia 497697432 Active 2022 Not Available [facility] 3 14:49:31 Mixed hyperlipi demia 825826594 Active 2022 Not Available [facility] 3 14:49:31 Insomnia 435330943 Active 2022 Not Available [facility] 3 14:49:31 Periphera l vascular disease 415925244 Active 2022 Ashlee Doyle MD [address], [place], [address] , [facility] 3 11:47:35 Anemia 177836235 Active 2023 MD Kane Galeano [address], [place], [address] , [facility] 4 22:05:29 Body mass index less than 20 437542903 Active 2023 MD Kane Galeano [address], [place], [place], , [facility] 4 11:56:56 Dysphagia 15551952 Active 2023 MD Kane Galeano [address], [place], [address] , [facility] 4 14:14:25 Mild memory disturban ce 013063037 Active 2023 MD Aurelia Galeano[address], [place], [address] , [facility] 4 13:46:21 Congestiv e heart failure 47415502 Active 2023 MD Kane Galeano [address], [place], [address] , [facility] 4 12:20:10 Iron deficienc y anemia 41459349 Active 2023 MD Kane Galeano [address], [place], , [facility] 4 12:22:31 Left bundle branch block 28374416 Active 2023 MD Kane Galeano [address], [place], [address] , [facility] 4 12:26:56 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 2023 MD Kane Galeano [facility] [address], [place], [address] , [facility] 4 12:34:37 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 MD Kane Galeano [facility] [address], [place], [address] , [facility] 4 17:34:02 CT of abdomen abnormal 38444446585 870190 Active 2024 MD Kane Galeano [facility] [address], [place], [address] , [facility] 5 20:40:35 Prediabet es 921794762 Active 2024 Dxed by A1c 6.2% on 10/23/24 MD Kane Galeano [facility] [address], [place], [address] , [facility] 5 21:01:29 Primary insomnia 4450359 Active 2024 MD Kane Galeano [facility] [address], [place], [address] , [facility] 5 18:49:04 Problem Notes None recorded. Procedures Surgical History Date Name Laterality Status Provider Name and Address Organization Details Recorded Time Partial Hysterectomy completed MD Kane Galeano [facility] [address], [place], [address], [facility] 05/10/2017 15:03:45 Imaging Results None recorded. Procedure Notes None recorded. Medical Equipment None Reported. Allergies Allergen ID Allergen Name Allergen Category Reaction Reaction Severity Criticality Documentation Date Start Date Code Code System Note Provider Name and Address Organization Details Recorded Time 80951 solifenac in medicatio n dry mouth Not available Not available 10/12/2022 63059 7 RxNorm Not Available [facility] 3 14:49:32 53223 sulfur dioxide medicatio n facial swelling Not available Not available 01/11/2025 98358 79 RxNorm Not Available [facility] - External Data Service - prod 5 10:56:21 5921 Substance with sulfonami de structure and antibacte rial mechanism of action (substanc e) medicatio n other Not available Not available 05/10/2017 57793 8003 SNOMED buddy Doyle MD [address] [facility] [address], [place], [address], [facility] 7 15:03:33 Medications Name Sig Start [...] every day by oral route at bedtime. 11/18/ 2025 11/19 /2025 completed Not Available Not Available Not Available [...] Available Not Available Not Available Fluzone High-Dose (PF) 180 mcg/0.5 mL [...] Updated DateTime 5 167.64 cm 18.9 kg/m2 16905.3 1 g 97.6 [degF] 18 /min 71 /min 101/53 mm[Hg] [facility] 5 11:38:34 Date Recorded Body height Body mass index (BMI) Body weight Heart rate Respiratory rate Body temperature Systolic And Diastolic Provider Name and Address Organization Details Last Updated DateTime 5 167.64 cm 17.9 kg/m2 48562.7 5 g 76 /min 18 /min 98.7 [degF] 115/52 mm[Hg] Migdalia [facility] 5 11:49:59 Date Recorded Body height Body temperature Body mass index (BMI) Body weight Respiratory rate Heart rate Systolic And Diastolic Provider Name and Address Organization Details Last Updated DateTime 4 167.64 cm 97.5 [degF] 19 kg/m2 67327.9 g 18 /min 69 /min 124/65 mm[Hg] Migdalia [facility] 4 11:49:45 Date Recorded Body height Body temperature Respiratory rate Body mass index (BMI) Body weight Heart rate Systolic And Diastolic Provider Name and Address Organization Details Last Updated DateTime 4 167.64 cm 97.5 [degF] 18 /min 19.4 kg/m2 72889.0 8 g 67 /min 108/59 mm[Hg] Migdalia [facility] 4 12:03:26 Date Recorded Body height Body temperature Body mass index (BMI) Body weight Respiratory rate Heart rate Systolic And Diastolic Provider Name and Address Organization Details Last Updated DateTime 5 167.64 cm 98.7 [degF] 18.2 kg/m2 00639.9 4 g 18 /min 80 /min 128/52 mm[Hg] Migdalia [facility] 5 11:48:39 Social History Question Answer Notes LastModified by Organizat ion Details LastModified Time Tobacco Smoking Status Never Smoker Ashlee Doyle MD [address] [facility] [address], [place], [address], [facility] 05/10/2017 15:11:55 What Is Your Level [...] Of Your Most Recent Tobacco Screening? 07/09/2022 [email or web address] Information not available 07/09/2022 Mother With HIV? [...] quadrivalent, preservative 8 completed Ashlee Doyle MD [address] [facility] [address], [place], [address], [facility] 06/12/2023 16:15:07 zoster recombinant 9 completed MD Kane Galeano [address], [place], [address], [facility] 06/12/2023 16:15:07 zoster live 9 completed MD Kane Galeano [address], [place], [address], [facility] 06/12/2023 16:15:08 zoster live 9 completed MD Kane Galeano [address], [place], [address], [facility] 06/12/2023 16:15:08 Influenza, split virus, quadrivalent, preservative 9 completed MD Kane Galeano [address], [place], [address], [facility] 06/12/2023 16:15:07 Influenza, split virus, quadrivalent, preservative 0 completed MD Kane Galeano [address], [place], [address], [facility] 06/12/2023 16:15:07 SARS-COV-2 (COVID-19) vaccine, UNSPECIFIED 1 completed MD Kane Galeano [address], [place], [address], [facility] 06/12/2023 16:15:07 COVID-19, mRNA, LNP-S, PF, 30 mcg/0.3 mL dose 1 completed MD Kane Galeano [address], [place], [address], [facility] 06/12/2023 16:15:07 Influenza, split virus, quadrivalent, preservative 1 completed MD Kane Galeano [address], [place], [address], [facility] 06/12/2023 16:15:07 COVID-19, mRNA, LNP-S, PF, 30 mcg/0.3 mL dose 2 completed MD Kane Galeano [address], [place], [place], [address] [place] [address], [facility] 06/12/2023 16:15:07 Influenza, high-dose, quadrivalent, PF 2 completed MD Kane Galeano [address], [place], [address] [place] [address], [facility] 06/12/2023 16:15:07 Influenza, MDCK, quadrivalent, PF 3 completed MD Kane Galeano [address], [place], [address], [facility] 06/12/2023 16:15:07 RSV, recombinant, protein subunit RSVpreF, adjuvant reconstituted, 0.5 mL, PF 3 completed MD Kane Galeano [address], [place], [address], [facility] 06/12/2023 16:15:07 COVID-19, mRNA, LNP-S, PF, nicole-sucrose, 30 mcg/0.3 mL 3 completed MD Kane Galeano [address], [place], [address], [facility] 06/12/2023 16:15:07 COVID-19, mRNA, LNP-S, PF, nicole-sucrose, 30 mcg/0.3 mL 4 completed MD Kane Galeano [address], [place], [address], [facility] 06/01/2024 14:33:16 COVID-19, mRNA, LNP-S, PF, nicole-sucrose, 30 mcg/0.3 mL 4 completed MD Kane Galeano [address], [place], [address], [facility] 06/01/2024 14:33:16 Influenza, high-dose, trivalent, PF 4 completed MD Kane Galeano [address], [place], [address], [facility] 06/01/2024 14:33:16 COVID-19, mRNA, LNP-S, PF, nicole-sucrose, 30 mcg/0.3 mL 5 completed MD Kane Galeano [address], [place], [address], [facility] 12/26/2024 19:01:03 COVID-19, mRNA, LNP-S, bivalent, PF, 10 mcg/0.2 mL 5 completed Roxana moy, [facility] 06/27/2025 14:45:22 influenza, unspecified formulation 5 completed Roxana moy, [facility] 06/27/2025 14:46:36 Pneumococcal conjugate PCV20, polysaccharide [id number] conjugate, adjuvant, PF 5 [facility] 19:14:26 Td(adult) unspecified formulation 6 completed MD Kane Galeano [address], [place], [address], [facility] 06/12/2023 16:15:07 Influenza, split virus, quadrivalent, preservative 6 completed MD Kane Galeano [address], [place], [address], [facility] 06/12/2023 16:15:07 Influenza, split virus, quadrivalent, preservative 7 completed MD Kane Galeano [address], [place], [address], [facility] 06/12/2023 16:15:07 Pneumococcal conjugate PCV 13 5 completed MD Kane Galeano [address], [place], [address] [place] [address], [facility] 06/12/2023 16:15:08 pneumococcal polysaccharide PPV23 9 completed MD Kane Galeano [facility] [address], [place], [address] [place] [address], [facility] 06/12/2023 16:15:07 zoster live 0 completed MD Kane Galeano [facility] [address], [place], [address], [facility] 06/12/2023 16:15:08 Hep B, unspecified formulation 8 completed MD Kane Galeano [facility] [address], [place], [address], [facility] 06/12/2023 16:15:08 Hep A, adult 8 completed MD Kane Galeano [facility] [address], [place], [address], [facility] 06/12/2023 16:15:08 Past Encounters Encounter ID Performer Location Encounter Start Date Encounter Closed Date Diagnosis/Indication Diagnosis SNOMED-CT Code Diagnosis ICD10 Code Diagnosis IMO Codes Diagnosis Note [id number] Ashlee Doyle MD [facility], [address] [place] [address] 05/10/2017 13:31:26 05/10/2017 15:39:20 Hyperlipidemia 71918199 E78.5 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 [id number] Ashlee Doyle MD [facility] [employer], [place] [address] [place] [address] 08/29/2017 14:57:53 08/29/2017 15:28:41 Benign hypertension 40941691 I10 Hyperlipidemia 89373185 E78.5 Osteoarthritis 161365690 M19.90 Carotid ar petar stenosis 02175711 I65.29 Screening for malignant neoplasm of colon 939256472 Z12.11 last C scope 11/06/13 , good for 10 years [id number] Ashlee Doyle MD [facility], [place] [address] [place] [address] 09/21/2017 10:11:41 09/21/2017 10:59:28 Cough 43756484 R05 Diarrhea 94075044 R19.7 [id number] Ashlee Doyle MD [facility] [employer], [place] [address] [place] [address] 11/28/2017 12:38:10 11/28/2017 13:40:04 Adult health examination 375032172 Z00.00 Benign hypertension 1072 5009 I10 good control Hyperlipidemia 65279647 E78.5 recheck Osteopenia 274985081 M85 .80 per pt had DEXA 03/2017 Carotid ar petar stenosis 10222753 I65.29 last U/S 09/22/17 Transient cerebral ischemia 973815943 G45.9 ASA 83 , no recurrence Age relate d macular degeneration 131082830 H35.30 sees ophth every 6 months 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 , asymptomat ic for now Osteoarthritis 270343406 M19.90 Left bundl e branch block 59728513 I44.7 will check EKG Hemorrhoids 91018445 K64 .9 Polyuria 63789985 R35.8 Screening for malignant neoplasm of colon 034171361 Z12.11 last C scope 11/06/13 , good for 10 years Screening mammography 24 654058 Z12.31 per pt had mammogram 01/2017 Screening for malignant neoplasm of cervix 424170765 Z12.4 per pt had PAP 06/2017 [id number] Ashlee Doyle MD [facility] [employer] [address] [place] [address] 02/28/2018 13:37:07 02/28/2018 14:29:09 Benign hypertension 40912684 I10 good control Osteopenia 082314504 M85 .80 per pt had DEXA 03/2017 Transient cerebral ischemia 482385864 G45.9 ASA 83 , no recurrence Carotid ar petar stenosis 16777711 I65.29 last U/S 2015 Screening mammography 24 637228 Z12.31 per pt had mammogram 01/2018 Screening for malignant neoplasm of colon 273006971 Z12.11 last C scope 11/06/13 , good for 10 years [id number] Ashlee Doyle MD [facility], [place] [address] [facility] [address] [place] [address] 06/16/2018 12:54:37 06/16/2018 13:53:05 Gastroesophageal reflux disease without esophagitis 951215540 K21.9 Hyperlipidemia 87954051 E78.5 last LDL 11/2017 Sinusitis 39081124 J32.9 Benign hypertension 1072 5009 I10 good control Screening mammography 24 825015 Z12.31 per pt had mammogram 01/2018 Screening for malignant neoplasm of cervix 000677709 Z12.4 per pt had PAP 06/2017 Screening for malignant neoplasm of colon 027216565 Z12.11 last C scope 11/06/13 , good for 10 years Active or passive immunization 721928412 Z23 Carotid ar petar stenosis 44546826 I65.29 last U/S 2015 ., per pt cardiology is repeating [id number] Ashlee Doyle MD [facility], [place] [address] [place] [address] 10/03/2018 14:57:58 10/03/2018 16:11:48 Benign hypertension 31273857 I10 good control Carotid ar petar stenosis 86386026 I65.29 last U/S 08/10/18 ., per pt cardiology is repeating Transient cerebral ischemia 423486926 G45.9 ASA 81 , no recurrence Vitamin D deficiency 347 73601 E55.9 Gastroesop hageal reflux disease without esophagitis 650876971 K21.9 Sinusitis 70042944 J32.9 Screening mammography 24 972782 Z12.31 per pt had mammogram 01/2018 Screening for malignant neoplasm of cervix 272587974 Z12.4 per pt had PAP 06/2017 Hemorrhoids 63459569 K64 .9 Screening for malignant neoplasm of colon 575998312 Z12.11 last C scope 11/06/13 , good for 10 years Mixed hyperlipidemia 267 707418 E78.2 [id number] Ashlee Doyle MD [facility], [facility] [place] [address] 01/05/2019 12:24:53 01/05/2019 13:06:15 Adult health examination 356817861 Z00.01 Benign hypertension 1072 5009 I10 good control Hyperlipidemia 00800507 E78.5 last LDL 01/01/19 Left bundl e branch block 85375607 I44.7 will check EKG Osteopenia 795500460 M85 .80 per pt had DEXA 03/2017 Osteoarthritis 719267245 M19.90 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 , asymptomat ic for now Age relate d macular degeneration 365598751 H35.30 sees ophth every 6 months Allergic r hinitis 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 58411354 J30.1 Carotid ar petar stenosis 24584799 I65.29 last U/S 08/10/18 ., per pt cardiology is repeating Focal onse t epileptic seizure 57715381 G40.109 no recurrence Hemorrhoids 96031528 K64 .9 History of Malignant melanoma 297183748 Z85.820 Screening mammography 24 782444 Z12.31 per pt had mammogram 01/2018 Screening for malignant neoplasm of cervix 936134807 Z12.4 per pt had PAP 06/2017 Screening for malignant neoplasm of colon 163404581 Z12.11 last C scope 11/06/13 , good for 10 years [id number] Ashlee Doyle MD [facility], [facility] [place] [address] 04/10/2019 11:48:21 04/10/2019 12:24:24 Benign hypertension 68328002 I10 good control Hyperlipidemia 29829746 E78.5 last LDL 01/01/19 Osteopenia 330247438 M85 .80 per pt had DEXA 05/12/2017 Carotid ar petar stenosis 32680542 I65.29 last U/S 08/10/18 ., per pt cardiology is repeating Screening mammography 24 415983 Z12.31 per pt had mammogram 01/2018 Screening for malignant neoplasm of colon 394486173 Z12.11 last C scope 11/06/13 , good for 10 years [id number] Ashlee Doyle MD [employer], [facility] [address] [place] [address] 07/03/2019 11:59:15 07/03/2019 12:33:09 Benign hypertension 27172561 I10 per pt BP on the low side , will decrease irbesartan to 1/2 tab of 75 , BP 2 weeksseen ophth 06/2019 Hyperlipidemia 51065115 E78.5 last LDL 01/01/19 Osteopenia 137691230 M85 .80 per pt had DEXA 05/12/2017 Carotid ar petar stenosis 58794261 I65.29 last U/S 08/10/18 ., per pt cardiology is repeating Gastroesop hageal reflux disease without esophagitis 341986948 K21.9 Sinusitis 08447979 J32.9 Screening mammography 24 610510 Z12.31 per pt had mammogram 02/2019 Screening for malignant neoplasm of cervix 076413872 Z12.4 per pt had PAP 06/2017 Screening for malignant neoplasm of colon 207322414 Z12.11 last C scope 11/06/13 , good for 10 years Active or passive immunization 201899169 Z23 up to date [id number] Ashlee Doyle MD [employer], [facility] [address] [place] [address] 10/08/2019 14:13:26 10/08/2019 15:12:20 Benign hypertension 55399638 I10 seen ophth 06/2019 Carotid ar petar stenosis 06002237 I65.29 last U/S 08/10/18 ., Hyperlipidemia 92006168 E78.5 last LDL 01/01/19 History of Malignant melanoma 375322971 Z85.820 sees derm on yearly basis Osteoarthritis 968604717 M19.90 Osteopenia 277049626 M85 .80 per pt had DEXA 05/12/2017 Screening mammography 24 857533 Z12.31 per pt had mammogram 02/2019 Screening for malignant neoplasm of colon 803001289 Z12.11 last C scope 11/06/13 , good for 10 years Active or passive immunization 535907791 Z23 up to date [id number] [facility] [address] [place] [address] 11/19/2019 11:02:38 11/19/2019 11:38:22 Varicose veins of lower extremity 68927837 I83.93 Skin nodule 63458720 R22 .9 left coates - Pain in le ft lower limb 854082875 M79.605 medial and lateral of lower calf Paresthesi a of lower extremity 634791291 R20.2 off and on x 6 months - left pretibial area - no numbness or weaknessoc curs occasional ly - [id number] Ashlee Doyle MD [employer], [facility] [address] [place] [address] 02/29/2020 12:53:53 02/29/2020 13:37:18 Adult health examination 882510595 Z00.01 Benign hypertension 1072 5009 I10 seen ophth 06/2019 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 99877 I82.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 , asymptomat ic for now Age relate d macular degeneration 652488677 H35.30 sees ophth every 6 months Allergic r hinitis 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 60942225 J30.1 stable on OTC meds Carotid ar peatr stenosis 68316604 I65.29 last U/S 08/10/18 ., Gastroesop hageal reflux disease without esophagitis 369688990 K21.9 stable on diet control History of Malignant melanoma 593784800 Z85.820 sees derm on yearly basis Hyperlipidemia 40285236 E78.5 last LDL 01/01/19 Left bundl e branch block 22629177 I44.7 will check EKG 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.B0 less than 2 times a month Osteoarthritis 591576836 M19.90 tylenol 500 TID Osteopenia 868685053 M85 .80 per pt had DEXA 05/12/2017 Focal onse t epileptic seizure 48583550 G40.109 no recurrence Transient cerebral ischemia 594235723 G45.9 ASA 81 , no recurrence Screening mammography 24 180771 Z12.31 per pt had mammogram 02/2019 Screening for malignant neoplasm of cervix 966355149 Z12.4 per pt had PAP 06/2017 Screening for malignant neoplasm of colon 204192878 Z12.11 last C scope 11/06/13 , good for 10 years Active or passive immunization 815438427 Z23 up to date [id number] Ashlee Doyle MD [facility] [address] [place] [address] 05/30/2020 12:46:46 05/30/2020 13:45:24 Benign hypertension 41167093 I10 seen ophth 06/2019hol d irbesartan 3 weeks to see if it will help with ST Allergic r hinitis 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 68530371 J30.1 stable on OTC meds Carotid ar peatr stenosis 38428926 I65.29 last U/S 08/10/18 ., Gastroesop hageal reflux disease without esophagitis 559325284 K21.9 stable on diet control Hyperlipidemia 39529618 E78.5 last LDL 03/06/20 Osteopenia 766081977 M85 .80 per pt had DEXA 05/12/2017 Transient cerebral ischemia 972361301 G45.9 ASA 81 , no recurrence Idiopathic peripheral neuropathy 63999385 G60.9 per neurology notedeclin e meds Chronic sore throat 2754 03873 J31.2 Family his tory of diabetes mellitus 072628202 Z83.[address] A1c 11/19/19 Screening mammography 24 797856 Z12.31 per pt had mammogram 02/2019 Screening for malignant neoplasm of colon 337610038 Z12.11 last C scope 11/06/13 , good for 10 years Active or passive immunization 821730519 Z23 up to date [id number] Ashlee Doyle MD [facility] [address] [place] [address] 01/13/2021 16:32:19 01/13/2021 17:26:08 Localized swelling, mass and lump, neck 625871323 R22.1 Benign hypertension 1072 5009 I10 seen ophth 06/2019hol d irbesartan 3 weeks to see if it will help with ST Carotid ar petar stenosis 76328924 I65.29 last U/S 06/12/20 History of Malignant melanoma 021965923 Z85.820 sees derm on yearly basis Hyperlipidemia 40761839 E78.5 last LDL 03/06/20 Idiopathic peripheral neuropathy 99755668 G60.9 per neurology notedeclin e meds Osteopenia 203406163 M85 .80 per pt had DEXA 03/06/20 Right uppe r quadrant pain 516829441 R10.11 Screening mammography 24 219128 Z12.31 per pt had mammogram 06/20/20 Screening for malignant neoplasm of cervix 039514706 Z12.4 per pt had PAP 06/2017 Screening for malignant neoplasm of colon 962924723 Z12.11 last C scope 11/06/13 , good for 10 years Active or passive immunization 313928471 Z23 up to date [id number] Ashlee Doyle MD [facility], [place] [address] [address] [place] ,[address] [place] [address] 01/27/2021 12:22:08 01/27/2021 13:08:34 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 Rt Hyponatremia 99817387 E8 7.1 no salt restrictio n [id number] Ashlee Doyle MD [facility], [place] [address] [address] [place] ,[address] [place] [address] 02/04/2021 11:46:37 02/04/2021 12:31:51 Swelling of upper limb 908020866 R22.31 Pain of ri ght shoulder joint 6677310799 4658615 M25.511 234012 Ashlee Doyle MD [employer], [place] [address] [address] [place] ,[address] [place] [address] 06/23/2021 11:52:57 06/23/2021 12:46:00 Paroxysmal atrial fibrillation 928948815 I48.0 on amiodarone and eliquis Pneumonia 032408761 J18. 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 S/P 4 cycles R-CHOP 04/2021 Hyperlipidemia 52820627 E78.5 last LDL 03/06/20 Allergic r hinitis 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 29154873 J30.1 stable on OTC meds Osteopenia 152761396 M85 .80 per pt had DEXA 03/06/20 Idiopathic peripheral neuropathy 51063766 G60.9 per neurology notedeclin e meds Gastroesop hageal reflux disease without esophagitis 696118525 K21.9 stable on diet control Screening mammography 24 312681 Z12.31 per pt had mammogram 06/20/20 Screening for malignant neoplasm of cervix 408954408 Z12.4 per pt had PAP 06/2017 Screening for malignant neoplasm of colon 762769396 Z12.11 last C scope 11/06/13 , good for 10 years Active or passive immunization 090941220 Z23 up to dateflu shot and COVID booster Adult heal th examination 007959711 Z00.01 last ophth eval 05/2021 Coronary arteriosclerosis 26287426 I25.10 asymptomat icmild per cardiology note Carotid ar petar stenosis 91342625 I65.29 last U/S 06/12/20 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 99027 I82.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 , asymptomat ic for now Benign hypertension 1072 5009 I10 seen ophth 06/2019goo d off irbesartan Age relate d macular degeneration 223034238 H35.30 sees ophth every 6 months Hemorrhoids 29488710 K64 .9 Left bundl e branch block 97424386 I44.7 asymptomat icseen cardiology 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.B0 less than 2 times a month [id number] Ashlee Doyle MD [facility] [employer], [facility] [address] [place] ,[address] [place] [address] 12/11/2021 12:26:26 12/23/2021 18:32:01 Benign hypertension 58602971 I10 seen ophth 11/2021good off irbesartan Carotid ar petar stenosis 62685542 I65.29 last U/S 06/12/20hav ing US 12/15/21 Coronary arteriosclerosis 64726708 I25.10 asymptomat icmild per cardiology note Hyperlipidemia 88122260 E78.5 last LDL 03/06/20car diology changed to rosuva 5 Idiopathic peripheral neuropathy 37260311 G60.9 per neurology notedeclin e meds 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, face AND/OR neck 47919213 C85.91 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.B0 less than 2 times a monthhavin g MRI of brain 12/15/21 Paroxysmal atrial fibrillation 899512196 I48.0 cardiology had holter ,cardiolog y stopped amiodarone and toprol Screening mammography 24 959477 Z12.31 per pt had mammogram 09/21/21 Screening for malignant neoplasm of cervix 516843883 Z12.4 per pt had PAP 06/2017 Screening for malignant neoplasm of colon 500753767 Z12.11 last C scope 11/06/13 , good for 10 years Active or passive immunization 525699093 Z23 up to dateflu shot and COVID booster History of SARS-CoV-2 29 38681982 37788857 Z86.16 tested +ve 10/2021 Long-term drug therapy 264653435 Z79.899 statin 072301 Ashlee Doyle MD [facility], [place] [address] [facility] [address] [address] 01/28/2022 11:28:38 01/28/2022 12:24:45 Arthritis of hand 094541074 M13.849 labs @ ER (CBC,CMP,U ron acid and ESR) were NLX ray showed OA Benign hypertension 1072 5009 I10 seen ophth 11/2021good off irbesartan Carotid ar petar stenosis 65293123 I65.29 last U/S 07/13/21 Coronary arteriosclerosis 50573503 I25.10 asymptomat icmild per cardiology note Diffuse hi gh grade B-cell lymphoma 152615948 C83.30 S/P 4 cycles R-CHOP 04/2021 Hyperlipidemia 85639527 E78.5 last LDL 12/24/21card iology changed to rosuva 5 Idiopathic peripheral neuropathy 60120753 G60.9 per neurology notedeclin e medslast B12 08/11/21 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.B0 less than 2 times a monthhavin g MRI of brain 12/15/21 Paroxysmal atrial fibrillation 358306482 I48.0 cardiology had holter ,cardiolog y stopped amiodarone and toprol Screening mammography 24 271024 Z12.31 per pt had mammogram 09/21/21 Screening for malignant neoplasm of cervix 714227735 Z12.4 per pt had PAP 06/2017 Screening for malignant neoplasm of colon 798021718 Z12.11 last C scope 11/06/13 , good for 10 years Active or passive immunization 012864033 Z23 up to dateflu shot and COVID booster Allergic r hinitis 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 89950456 J30.1 stable on OTC meds 852308 Ashlee Doyle MD [employer], [facility] [address] [facility] [place] ,[address] [place] [address] 04/02/2022 12:41:21 04/02/2022 13:38:06 Acute urinary tract infection 627403309 N39.0 Low back pain 941652597 M54.50 Congestion of nasal sinus 54937671 R09.81 Benign hypertension 1072 5009 I10 seen ophth 11/2021good off irbesartan Screening mammography 24 929080 Z12.31 per pt had mammogram 09/21/21 Active or passive immunization 788804948 Z23 up to dateflu shot and COVID booster 748490 Ashlee Doyle MD [employer], [place] [address] [facility] [place] ,[address] [place] [address] 07/09/2022 12:26:29 07/09/2022 13:18:33 Adult health examination 582693296 Z00.01 last ophth eval 05/2022 Benign hypertension 1072 5009 I10 seen ophth 11/2021good off irbesartan Allergic r hinitis 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 47110918 J30.1 stable on OTC meds Carotid ar petar stenosis 55479726 I65.29 last U/S 07/13/21 Coronary arteriosclerosis 31249212 I25.10 asymptomat icmild per cardiology note Diffuse hi gh grade B-cell lymphoma 018901339 C83.30 S/P 4 cycles R-CHOP 04/2021 Gastroesop hageal reflux disease without esophagitis 957406006 K21.9 stable on diet control History of Malignant melanoma 030976867 Z85.820 sees derm on yearly basis History of SARS-CoV-2 29 72030527 54414945 Z86.16 tested +ve 10/2021 Hyperlipidemia 44774874 E78.5 last LDL 12/24/21card iology changed to rosuva 5 Idiopathic peripheral neuropathy 79082283 G60.9 per neurology notedeclin e medslast B12 08/11/21 Left bundl e branch block 00299920 I44.7 asymptomat icseen cardiology Long-term drug therapy 294325751 Z79.899 statin Open-angle glaucoma of left eye 083464085 H40.1130 ophth eval 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.B0 less than 2 times a monthhavin g MRI of brain 12/15/21 Osteoarthritis 929828581 M19.90 tylenol 500 TID Osteopenia 123083493 M85 .80 per pt had DEXA 03/06/20 Paroxysmal atrial fibrillation 606185087 I48.0 cardiology had holter ,cardiolog y stopped amiodarone and toprol Focal onse t epileptic seizure 11907495 G40.109 no recurrence Screening mammography 24 330098 Z12.31 per pt had mammogram 09/21/21 Screening for malignant neoplasm of cervix 095468727 Z12.4 per pt had PAP 06/2017 Screening for malignant neoplasm of colon 207048605 Z12.11 last C scope 11/06/13 , good for 10 years Active or passive immunization 633523255 Z23 up to dateflu shot and COVID booster Increased frequency of urination 262952172 R35.0 Hemorrhoids 04692502 K64 .9 Congestion of nasal sinus 94622371 R09.81 180594 Ashlee Doyle MD [facility], [facility] [address] [facility] [place] ,[address] [address] 10/12/2022 12:17:42 10/12/2022 13:49:28 Benign hypertension 82081572 I10 seen ophth 11/2021good off irbesartan last EKG 06/28/22 Carotid ar petar stenosis 25898557 I65.29 last U/S 07/13/21 Coronary arteriosclerosis 88750201 I25.10 asymptomat icmild per cardiology note Gastroesop hageal reflux disease without esophagitis 503339895 K21.9 stable on diet control Hyperlipidemia 25367447 E78.5 last LDL 12/24/21card iology changed to rosuva 5 Paroxysmal atrial fibrillation 979802942 I48.0 cardiology had holter ,cardiolog y stopped amiodarone and toprolchad score 4-5 Diffuse hi gh grade B-cell lymphoma 402161717 C83.30 S/P 4 cycles R-CHOP 04/2021 Vitamin B deficiency 479 02653 E53.9 Screening mammography 24 348820 Z12.31 per pt had mammogram 09/21/21 Long-term drug therapy 758768285 Z79.899 statin Screening for malignant neoplasm of cervix 894296584 Z12.4 per pt had PAP 06/2017 Screening for malignant neoplasm of colon 227949325 Z12.11 last C scope 11/06/13 , good for 10 years Active or passive immunization 443309545 Z23 up to dateflu shot and COVID booster Mixed urin vini incontinence 255635494 N39.46 143634 Ashlee Doyle MD [facility], [place] [address] [facility] [place] ,[facility] [address] [place] [address] 01/26/2023 11:04:40 01/26/2023 11:53:47 Atrial fibrillation 97257192 I48.91 stablesees cardiology on reg basis Benign hypertension 1072 5009 I10 seen ophth 08/2022 per ptlast EKG 01/04/23 Osteoarthritis 515305010 M19.90 tylenol 500 TID Arthritis of hand 974647 005 M13.849 labs @ ER (CBC,CMP,U ron acid and ESR) were NLX ray showed OA Age relate d macular degeneration 195969229 H35.30 sees ophth every 6 months Carotid ar petar stenosis 38677247 I65.29 last U/S 07/13/21 Hyperlipidemia 13919992 E78.5 last LDL 12/24/21card iology changed to rosuva 5 Idiopathic peripheral neuropathy 36392127 G60.9 per neurology notedeclin e medslast B12 08/11/21 Long-term drug therapy 463293399 Z79.899 statin 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.B0 less than 2 times a monthhavin g MRI of brain 12/15/21 Hypomagnesemia 764900132 E83.42 Hyponatremia 18050548 E8 7.1 no salt restrictio n Screening mammography 24 912095 Z12.31 per pt had mammogram 11/08/22 Screening for malignant neoplasm of cervix 140618172 Z12.4 per pt had PAP 06/2017 Screening for malignant neoplasm of colon 261129035 Z12.11 last C scope 11/06/13 , good for 10 years Active or passive immunization 860989824 Z23 up to dateflu shot and COVID booster 027956 Ashlee Doyle MD [employer], [place] [address] [place] ,[address] [place] [address] 04/14/2023 11:58:27 04/14/2023 13:37:29 Cellulitis of lower leg 350057270 L03.119 Insomnia 255533673 G47.0 0 Benign hypertension 1072 5009 I10 seen ophth 08/2022 per ptlast EKG 01/04/23 Carotid ar petar stenosis 11793800 I65.29 last U/S 07/13/21 Paroxysmal atrial fibrillation 667691734 I48.0 cardiology had holter ,cardiolog y stopped amiodarone and toprolchad score 4-5anticoa gulation safty education Cough 64045733 R05.9 Hypomagnesemia 253261703 E83.42 Mixed hyperlipidemia 267 640416 E78.2 Long-term drug therapy 908242974 Z79.899 statin Screening mammography 24 710468 Z12.31 per pt had mammogram 11/08/22 Screening for malignant neoplasm of colon 854843486 Z12.11 last C scope 11/06/13 , good for 10 years Screening for malignant neoplasm of cervix 039705280 Z12.4 per pt had PAP 06/2017 Active or passive immunization 113643200 Z23 up to dateflu shot and COVID booster 733147 Ashlee Doyle MD [employer], [facility] [address] [place] ,[address] [place] [address] 06/16/2023 11:35:15 06/16/2023 13:03:22 Dysphagia 82691193 R13.10 Body mass index 20-24 - normal 205577401 Z68.20 down 10 LBs without trying Benign hypertension 1072 5009 I10 on the low side today , with light headinesss top amlodipine BP 2 weeksseen ophth 08/2022 per ptlast EKG 01/04/23 Dysuria 92389868 R30.0 Carotid ar petar stenosis 27064451 I65.29 last U/S 10/12/22 per pt Paroxysmal atrial fibrillation 491201886 I48.0 cardiology had holter ,anita score 4-5anticoa gulation safty education Screening mammography 24 324564 Z12.31 per pt had mammogram 11/08/22 Screening for malignant neoplasm of cervix 642706460 Z12.4 per pt had PAP 06/2017 Screening for malignant neoplasm of colon 172155422 Z12.11 last C scope 11/06/13 , good for 10 years Active or passive immunization 584044182 Z23 up to date Osteopenia 018564122 M85 .80 per pt had DEXA 11/08/22 Fatigue 69892625 R53.83 Hyperlipidemia 98841405 E78.5 last LDL 12/24/21card iology changed to rosuva 5 [id number] Ashlee Doyle MD [facility], [place] [address] [address] [place] ,[address] [address] 06/27/2023 10:57:18 06/27/2023 12:29:38 Benign hypertension 37064947 I10 on the higher side @ homeadd 12.5 losartanBP 2 weeksseen ophth 08/2022 per ptlast EKG 01/04/23 Dysuria 42790832 R30.0 Hyponatremia 06346440 E8 7.1 no salt restrictio n Screening for malignant neoplasm of cervix 247522227 Z12.4 per pt had PAP 06/2017 Active or passive immunization 924002121 Z23 up to date Atrophic vaginitis 50486 000 N95.2 758205 Ashlee Doyle MD [employer], [place] [address] [address] [place] ,[address] [place] [address] 08/24/2023 10:58:39 08/24/2023 12:05:07 Benign hypertension 38608538 I10 good controlon 12.5 losartanBP 2 weeksseen ophth 08/2023 per ptlast EKG 01/04/23 Carotid ar petar stenosis 96617601 I65.29 last U/S 10/12/22 per pt Coronary arteriosclerosis 02900849 I25.10 asymptomat icmild per cardiology note Gastroesop hageal reflux disease without esophagitis 130041766 K21.9 GI add pantoprazo le 40 BID and carafate Hyponatremia 10323414 E8 7.1 no salt restrictio n Screening mammography 24 277449 Z12.31 per pt had mammogram 11/08/22 Screening for malignant neoplasm of cervix 100138790 Z12.4 per pt had PAP 06/2023 Screening for malignant neoplasm of colon 134256060 Z12.11 last C scope 11/06/13 , good for 10 years Active or passive immunization 195558269 Z23 up to date Adult heal th examination 095524311 Z00.01 last ophth eval 05/2023 Focal onse t epileptic seizure 31006202 G40.109 no recurrence Family his tory of diabetes mellitus 430615508 Z83.[address] A1c 05/13/23 Diffuse hi gh grade B-cell lymphoma 184594559 C83.30 S/P 4 cycles R-CHOP 04/2021 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 , asymptomat ic for now Age relate d macular degeneration 210008506 H35.30 sees ophth every 6 months Allergic r hinitis 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 44832267 J30.1 stable on OTC meds History of Malignant melanoma 376201992 Z85.820 sees derm on yearly basis History of SARS-CoV-2 29 51375106 03177407 Z86.16 tested +ve 10/2021 Hyperlipidemia 77330301 E78.5 last LDL 05/13/23car diology changed to rosuva 5 Hypomagnesemia 435110525 E83.42 last level 06/21/23 Idiopathic peripheral neuropathy 63948872 G60.9 per neurology notedeclin e medslast B12 06/21/23 Increased frequency of urination 440433782 R35.0 Insomnia 426844539 G47.0 0 better Left bundl e branch block 83310717 I44.7 asymptomat icseen cardiology Long-term drug therapy 625030651 Z79.899 statin , last A1c 05/11/23 Macrocytosis 858171696 D 75.89 last b12 06/27/23 Neoplasm o f supraclavicular region 206782201 D49.89 Rt 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.B0 less than 2 times a monthhavin g MRI of brain 12/15/21 Paroxysmal atrial fibrillation 786195390 I48.0 cardiology had holter ,anita score 4-5anticoa gulation safty education Transient cerebral ischemia 745410283 G45.9 ASA 81 , no recurrence Vitamin B deficiency 479 62405 E53.9 b12 06/21/23 Peripheral vascular disease 506576482 I73.9 per cardiology note 01/21/23 Advance di rective discussed with patient 583507503 Z71.89 education 039017 Ashlee Doyle MD [facility] [employer] [facility] [place] ,[address] [place] [address] 11/23/2023 11:02:35 11/23/2023 12:01:52 Candidiasis of esophagus 20020519 B37.81 had EGD 10/20/23 , had 2 rounds of fluconazol e Congestive heart failure 62791488 I50.9 last ECHO 10/2023 Anemia 148805055 D64.9 Paroxysmal atrial fibrillation 990579891 I48.0 cardiology had holter ,anita score 4-5anticoa gulation safty education Carotid ar petar stenosis 61936106 I65.29 last U/S 10/12/22 per pt Active or passive immunization 890090954 Z23 up to date Body mass index less than 20 224761699 Z68.1 172851 Ashlee Doyle MD [facility] [employer] [facility] ,[address] [place] [address] 01/06/2024 12:05:09 01/06/2024 14:11:13 Mild memory disturbance 674240046 R41.3 mild , Age relate d macular degeneration 679080986 H35.30 sees ophth every 6 monthsneed help with ADLsform 4 pages done today Idiopathic peripheral neuropathy 50115948 G60.9 per neurology notedeclin e medslast B12 06/21/23 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.B0 less than 2 times a monthhavin g MRI of brain 12/15/21 Paroxysmal atrial fibrillation 230169737 I48.0 cardiology had holter ,anita score 4-5anticoa gulation safty education 953160 Ashlee Doyle MD [facility], [place] [address] [address] [place] [address] [place] [address] 03/06/2024 14:59:36 03/06/2024 16:02:00 Anemia 671332107 D64.9 Benign hypertension 1072 5009 I10 good controlBP 2 weeksseen ophth 08/2023 per ptlast EKG 01/04/23 Cough 03329625 R05.9 Carotid ar petar stenosis 75680535 I65.29 last U/S 10/12/22 per pt Hyperlipidemia 84213855 E78.5 last LDL 05/13/23car diology changed to rosuva 5 Fall on same level 46394 003 W18.30XA one time , 2 months agoeducati on Screening mammography 24 458108 Z12.31 per pt had mammogram 12/30/23 Screening for malignant neoplasm of cervix 283724445 Z12.4 per pt had PAP 06/2023 Screening for malignant neoplasm of colon 657670286 Z12.11 last C scope 11/06/13 , good for 10 years Active or passive immunization 439912960 Z23 up to date Benign par oxysmal positional vertigo 821317191 H81.10 735873 Ashlee Doyle MD [facility], [place] [address] [address] [place] ,[address] [place] [address] 04/18/2024 11:36:37 04/18/2024 12:38:39 Pneumonia 326012144 J18.9 LLL on CXR 04/05/24O2 is 93% Congestive heart failure 46035553 I50.9 last ECHO 10/2023 , EF 45%resolve d Paroxysmal atrial fibrillation 746334697 I48.0 cardiology had holter ,anita score 4-5anticoa gulation safty education Iron defic iency anemia 55766529 D50.9 Benign hypertension 1072 5009 I10 good controlBP 2 weeksseen ophth 08/2023 per ptlast EKG 01/04/23 Candidiasis of vagina 72 724255 B37.31 938277 Ashlee Doyle MD [facility], [address] ,[address] [place] [address] 06/18/2024 11:27:00 06/18/2024 12:45:24 Benign hypertension 42633915 I10 good controlBP 2 weeksseen ophth 08/2023 per ptlast EKG 06/27/23 Congestive heart failure 41047232 I50.9 last ECHO 10/2023 , EF 45%resolve d Dysphagia 95823160 R13.1 0 seen GI , having EGD Paroxysmal atrial fibrillation 571709560 I48.0 cardiology had holter ,anita score 4-5anticoa gulation safty education Stasis dermatitis 351181 05 I87.2 low ext Screening mammography 24 957596 Z12.31 per pt had mammogram 12/30/23 Screening for malignant neoplasm of cervix 713356855 Z12.4 per pt had PAP 06/2023 Screening for malignant neoplasm of colon 178042090 Z12.11 last C scope 11/06/13 , good for 10 years Active or passive immunization 843895802 Z23 up to date 261292 Ashlee Doyle MD [facility], [facility] [address] [facility] ,[address] [place] [address] 10/08/2024 11:08:50 10/08/2024 12:22:58 Benign hypertension 20351634 I10 good controlBP 2 weeksseen ophth 08/2024 per ptlast EKG 06/27/23 Carotid ar petar stenosis 98230855 I65.29 last U/S 10/12/22 per pt Hypomagnesemia 078077764 E83.42 last level 06/21/23 Hyperlipidemia 45718838 E78.5 last LDL 05/13/23car diology changed to rosuva 5 Idiopathic peripheral neuropathy 71316724 G60.9 per neurology notedeclin e medslast B12 06/21/23 Iron defic iency anemia 35168320 D50.9 Long-term drug therapy 289415188 Z79.899 statin , last A1c 02/2024 ,amiodaron e , scheduled for PFT 11/2023 per pt Congestive heart failure 85634384 I50.9 last ECHO 10/2023 , EF 45%resolve d Screening mammography 24 767875 Z12.31 per pt had mammogram 12/30/23 Screening for malignant neoplasm of cervix 401090537 Z12.4 per pt had PAP 06/2023 Screening for malignant neoplasm of colon 661792679 Z12.11 last C scope 11/06/13 , no polyp Active or passive immunization 030926608 Z23 up to date Unintentio nal weight loss 021266118 R63.4 Paroxysmal atrial fibrillation 320485748 I48.0 cardiology had holter ,anita score 4-5anticoa gulation safty education 313813 Ashlee Doyle MD [facility], [facility] [address] [facility] [address] [place] [address] [place] [address] 04/02/2025 11:20:44 04/02/2025 12:56:19 Adult health examination 340628977 Z00.01 2270231 last ophth eval 05/2023 Benign hypertension 1072 5009 I10 good controlBP 2 weeksseen ophth 08/2024 per ptlast EKG 06/27/23 Coronary arteriosclerosis 26384214 I25.10 asymptomat icmild per cardiology note Paroxysmal atrial fibrillation 505929549 I48.0 cardiology had holter ,anita score 4-5anticoa gulation safty education Peripheral vascular disease 477806100 I73.9 per cardiology note 01/21/23 Carotid ar petar stenosis 85884057 I65.29 last U/S 10/12/22 per pt Mixed hyperlipidemia 267 596367 E78.2 last LDL 10/23/24 Congestive heart failure 27445541 I50.9 last ECHO 10/2023 , EF 45%resolve d 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 49592 I82.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 , asymptomat ic for now Prediabetes 007044802 R7 3.03 Body mass index less than 20 369760968 Z68.1 education Vitamin B deficiency 479 51443 E53.9 b12 06/21/23 Open-angle glaucoma of left eye 940546309 H40.1130 ophth eval Age relate d macular degeneration 610154961 H35.30 sees ophth every 6 monthsneed help with ADLsform 4 pages done today Dysphagia 37316637 R13.1 0 seen GI , had EGD Gastroesop hageal reflux disease without esophagitis 317699621 K21.9 GI add pantoprazo le 40 BID and carafate Hypomagnesemia 056637123 E83.42 last level 06/21/23 Mixed urin vini incontinence 839094809 N39.46 Anemia 532892814 D64.9 Diffuse hi gh grade B-cell lymphoma 323484792 C83.30 S/P 4 cycles R-CHOP 04/2021 History of Malignant melanoma 050195988 Z85.820 sees derm on yearly basis History of SARS-CoV-2 29 73909620 68597211 Z86.16 tested +ve 10/2021 Osteoarthritis 046523202 M19.90 tylenol 500 TID 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.B0 less than 2 times a monthhavin g MRI of brain 12/15/21 Transient cerebral ischemia 754425434 G45.9 ASA 81 , no recurrence Mild memor y disturbance 470098011 R41.3 mild , Idiopathic peripheral neuropathy 77851936 G60.9 per neurology notedeclin e medslast B12 06/21/23 Insomnia 170663462 G47.0 0 better Focal onse t epileptic seizure 69932617 G40.109 no recurrence Allergic r hinitis 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 83598915 J30.1 stable on OTC meds Fracture o f superior pubic ramus 424767490 S32.511D 51041496 seen ortho , getting better , on PT Low back pain 553174106 M54.50 99594 Screening mammography 24 182403 Z12.31 0723315871 per pt had mammogram 12/30/23 Cancer cer vix screening status 059658892 Z12.4 084767 per pt had PAP 06/2023 Screening for malignant neoplasm of colon 905233579 Z12.11 786847 last C scope 11/06/13 , no polyp Immunization due 1888359 08 Z23 6256821 up to date Counseling 562137689 Z71 .89 220091 education 400358 Ashlee Doyle MD [employer], [facility] [address] [facility] [place] ,[address] [address] 07/09/2025 11:34:48 07/09/2025 12:47:12 Benign hypertension 57510767 I10 - good control- BP 2 weeks- seen ophth 06/2025 per pt- last EKG 04/02/25 Congestive heart failure 60551942 I50.9 - last ECHO 10/2023 , EF 45%- resolved Paroxysmal atrial fibrillation 734413100 I48.0 - cardiology had holter ,- anita score 4-5- anticoagul ation safty education Peripheral vascular disease 206333682 I73.9 - per cardiology note 01/21/23 Carotid ar petar stenosis 58049191 I65.29 - last U/S 10/12/22 per pt Mixed hyperlipidemia 267 493847 E78.2 - last LDL 10/23/24 Neck pain 40747923 M54.2 05233 Prediabetes 320677222 R7 3.03 - last A1c 04/16/25 Body mass index less than 20 681051241 Z68.1 education Vitamin B deficiency 479 98813 E53.9 b12 06/21/23 Hypomagnesemia 426957469 E83.42 - last level 04/16/25 Anemia 886389598 D64.9 Screening mammography 24 250948 Z12.31 [id number] per pt had mammogram 04/16/25 Screening for malignant neoplasm of cervix [id number] Z12.4 232371 per pt had PAP 06/2023 Screening for malignant neoplasm of colon 429819624 Z12.11 [id number] last C scope 11/06/13 , no polyp Immunization due [id number] 08 Z23 [id number] up to date Health Concerns Section Related Observation LastModified by Organization Detai ls LastModified Time None Recorded Concern Status LastModified by Organization Details LastModified Time None Recorded Advance Directives Directive None Recorded Payers Insurance Date Sequence Insurance Name Policy Number Policy Tai Covered Member ID Tai Member ID Guarantor Name 08/19/2025 2 [place] 104 Agustina Cordova [id number] Agustina Cordova 08/19/2025 1 [place] Agustina Cordova [id number] Agustina Cordova Notes Date Note Type [...] till 04/07/24 Dx Pneumonia , Better now MD Kane Galeano [facility] [address], [place], [address], [facility] 04/18/2024 12:33:14 4 text/html Hypertension F/UReported by PatientHPIFor medications, patient reportstaking medications as directedandno side effects from medication. For lifestyle, patient reportsregular exercise,limiting/avoiding salt, andcompliant with low salt diet. For associated symptoms, patient reportsno dizziness,no lightheadedness,no chest pain,no shortness of breath,no palpitations,no edema,no calf pain with exertion, andno headache. MD Kane Galeano [facility] [address], [place], [address], [facility] 06/18/2024 12:41:56 5 text/html Hypertension F/UReported by PatientHPIFor medications, patient reportstaking medications as directedandno side effects from medication. For lifestyle, patient reportsregular exercise,limiting/avoiding salt, andcompliant with low salt diet. For associated symptoms, patient reportsno dizziness,no lightheadedness,no chest pain,no shortness of breath,no palpitations,no edema,no calf pain with exertion, andno headache. MD Kane Galeano [facility] [address], [place], [address], [facility] 10/08/2024 12:13:35 5 text/html Medicare Annual Wellness [...] exertion, andno headache. Ashlee Doyle MD [address] [facility] [address], [place], [address], [facility] 04/02/2025 12:42:21 5 text/html Hypertension F/UReported by PatientHPIFor medications, patient reportstaking medications as directedandno side effects from medication. For lifestyle, patient reportsregular exercise,limiting/avoiding salt, andcompliant with low salt diet. For associated symptoms, patient reportsno dizziness,no lightheadedness,no chest pain,no shortness of breath,no palpitations,no edema,no calf pain with exertion, andno headache. Ashlee Doyle MD [address] [facility] [address], [place], [address], [facility] 07/09/2025 12:40:58 OBGyn Episode No OBEpisode recorded.
--- OUTSIDE RECORDS SUMMARY | 2025-08-20 09:02 | XMS_ITS | Encounter Summary ---
Author Organization [facility] Address [address] [place] [address] Care Team Providers Care Practice Assistant Name Role Phone Olivia Foss MD Primary Care Provider Unavailable Encounter Details Date Type Department Care Team (Late st Contact Info) Description 02/07/2019 Lab Requisition [facility] Care DermPath Lab [address] [facility], [place] [address] Olivia Fernandez MD [address] [facility] 3 [place] [address] Social History Tobacco Use Types Packs/Day Years Used Date Smoking Tobacco: Never Assessed Comments Unknown Sex and Gender Information Value Date Recorded Sex Assigned at Not on file 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 Jar 0. Specimen B: Received is one formalin filled container labeled with the patient's name and designated left FA. The specimen consists of a shave (2 pieces) measuring 08b4g3zr & 9a4p3cx. Jar 0. 10:54 AM T DERMATOPATHOLOGY LABORATORY [...] characteristic determined by the Dermatopathology Laboratory at [facility], directed by Dr. Kwame Agrawal. These tests need not be, and therefore are not, approved by the [place] Food and Drug Administration. The tests are used for clinical purposes. Billing Codes Specimen Charges Stain Charges 57734 35441 1 1 9 10:54 AM T DERMATOPATHOLOGY LABORATORY Embedded Images 10:54 AM T DERMATOPATHOLOGY LABORATORY Pathology/Cytology TISSUE SPECIMEN FROM SKIN / Unknown 02/05/2019 02/07/2019 8:16 AM CDT Miscellaneous samples (specimen) TISSUE SPECIMEN FROM SKIN / Unknown 02/05/2019 02/07/2019 8:16 AM CDT Olivia Fernandez MD LAB - PATHOLOGY/CYTOLOGY OR DERABLES Final Result DERMATOPATHOLOGY LABORATORY [facility] - Department of Dermatology [address] [place] [address], 5th [place] [address], [facility] [[email or web address]] [phone] documented in this encounter Visit Diagnoses Not on filedocumented in this encounter Care Teams Practice Assistant Relationship Specialty Start Date End Date Olivia Foss MD PCP - General 02/05/19 documented as of this encounter
--- OUTSIDE RECORDS SUMMARY | 2025-08-20 09:02 | XMS_ITS | Clinical Summary ---
Author Organization [facility] Address [address] [place] [address] Care Team Providers Care Admin Assistant Name Role Phone Miscellaneous, Not In File Unavailable Unava ilable Sheryl Latham MD Unavailable [phone] Ashlee Doyle MD Primary Care Provider [phone] Jonh Junior MD Unavailable [phone] Allergies Active Allergy Reactions Criticality Noted Date [...] ready for that. -home spironolactone, -02/21 BNP >67416, ordered Cardio c/s, TTE, Trop, EKG, tele [...] stable from prior notes from [facility] - Fundus exam and photos appear stable [...] Patient should continue to monitor with her lieutenant general Assessment & Plan (04/01/2022 3:54 PM CDT): [...] (ERM) peel right eye (OD) 2007 at [facility]. Asked patient to bring notes or forward prior to next visit. Follows with Dr. Izaguirre at [facility]. 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 Following with Dr. Latahm. Completed 4 cycles R-CHOP, last 04/23. Not [...] exertion 06/06/2018 Coronary artery disease invo lving [place] coronary artery of [place] heart without angina pectoris 06/06/2018 Assessment & [...] Department Care Team Description 06/30/2025 Results Follow-Up [facility] Medicine Cardiology [address] [facility] Floor 1, [address] [place] [address] Jonh Junior MD Pulmonary Function Test - 06/21/2025 Telephone [facility] Medicine Cardiology [address] [facility] 8th [place] [address] [place] [address] Jonh Junior MD 06/20/2025 11:45 AM CDT Office Visit [facility] Medicine Oncology [address] [facility] Floor 6 [place] [address] Yulia Nolasco NP 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) 06/20/2025 11:15 AM CDT Lab [facility] - Lab Collection [address] [facility] Floor 6 [place] [address] 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) 06/20/2025 10:45 AM CDT Lab [facility] Medicine Oncology Lab [address] [facility] Floor 6 [place] [address] 06/20/2025 Telephone [facility] Medicine Cardiology [address] [facility] 8th [place] [address] [place] [address] Aliza Brown 06/19/2025 Telephone [facility] Medicine Cardiology [address] [facility] 8th [place] [address] [place] [address] John Junior MD 06/17/2025 11:45 AM CDT Office Visit [facility] Medicine Cardiology [address] [facility] Floor 1, [address] [place] [address] Jonh Junior MD 06/17/2025 9:46 AM CDT - 06/17/2025 11:59 PM CDT Hospital Encounter [facility] Medicine PFT Lab [address] [facility] Floor 1, [address] [place] [address] Ischemic cardiomyopathy; Essential hypertension; On amiodarone therapy Discharge Disposition: Discharge to home or self care from Last 3 Months Immunizations Immunization Administration Dates Next Due COVID-19 mRNA ([email or web address]) 0.3 m L (30 mcg) vaccine (12 [...] on file 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 [place] [address] * (ABNORMAL) Differential, auto (06/20/2025 11:29 AM CDT) Pathologist [facility] Neutrophil abs 3.79 1.50 - 6.50 K/cumm Comment:Testing performed by : [facility] Heme [facility], [address] [place] [phone] Lymphocyte abs 1.88 0.80 - 3.30 K/cumm BENJAMIN SETH Comment:Testing performed by : [facility], [address] [place] [phone] Monocyte abs 0.97(H) 0.20 - 0.80 K/cumm BENJAMIN SETH Comment:Testing performed by : [facility], [address] [place] [phone] Eosinophil abs 0.13 0.00 - 0.50 K/cumm CERNER BJ Comment:Testing performed by : [facility], [address] [place] [phone] Basophil abs 0.05 0.00 - 0.10 K/cumm CERNER [facility] Comment:Testing performed by : [facility], [address] [place] [phone] Neutrophil pct 55.6 % CERNER BJ Comment: Interpretive Data Percent cell count reference ranges are not reported, since discordance with absolute values may lead to misinterpretation of CBC data. Current Interpretive Data was last revised on 2017. Testing performed by: [facility], [address] [place], [place] [id number] Lymphocyte pct 27.6 % CERNER BJ Comment: Interpretive Data Percent cell count reference ranges are not reported, since discordance with absolute values may lead to misinterpretation of CBC data. Current Interpretive Data was last revised on 2017. Testing performed by: [facility], [address] [place], [place] [id number] Monocyte pct 14.2 % CERNER BJ Comment: Interpretive Data Percent cell count reference ranges are not reported, since discordance with absolute values may lead to misinterpretation of CBC data. Current Interpretive Data was last revised on 2017. Testing performed by: [facility], [address] [place] [phone] Eosinophil pct 1.8 % CERNER BJ Comment: Interpretive Data Percent cell count reference ranges are not reported, since discordance with absolute values may lead to misinterpretation of CBC data. Current Interpretive Data was last revised on 2017. Testing performed by: [facility], [address] [place] [phone] Basophil pct 0.7 % CERNER BJ Comment: Interpretive Data Percent cell count reference ranges are not reported, since discordance with absolute values may lead to misinterpretation of CBC data. Current Interpretive Data was last revised on 2017. Testing performed by: [facility], [address] [place] [phone] Blood 06/20/2025 11:2 9 AM CDT 06/20/2025 11:37 AM CDT us Sheryl Latham MD LAB BLOOD ORDERABLES Final Re sult BENJAMIN SETH One [facility] [place] [address] * (ABNORMAL) CBC with auto differential (06/20/2025 11:29 AM CDT) WBC 6.81 3.80 - 9.90 K/cumm Comment:Testing performed by : [facility], [address] [place] [address] Hgb 8.4(L) 11.9 - 15.5 g/dL BENJAMIN SETH Comment:Testing performed by : [facility], [address] [place] [address] Hct 26.3(L) 35.6 - 45.5 % BENJAMIN SETH Comment:Testing performed by : [facility], [address] [place] [address] Plt 180 150 - 400 K/cumm BENJAMIN SETH Comment:Testing performed by : [facility], [address] [place] [address] MPV 6.9 6.8 - 10.4 fL BENJAMIN SETH Comment:Testing performed by : [facility], [address] [place] [address] RBC 3.22(L) 3.90 - 5.20 M/cumm BENJAMIN BJ Comment:Testing performed by : [facility], [address] [place] [address] MCV 81.5 81.3 - 96.4 fL CERAKHIL SETH Comment:Testing performed by : [facility], [address] [place] [address] MCH 25.9(L) 27.1 - 33.3 pg CERAKHIL SETH Comment:Testing performed by : [facility], [address] [place], [place] [phone] MCHC 31.8(L) 32.3 - 35.7 g/dL [facility]IN [facility] Comment:Testing performed by : [facility], [address] [place], [place] [phone] RDW CV 15.3(H) 11.1 - 14.9 % BENJAMIN [facility] Comment:Testing performed by : [facility], [address] [place], [place] [phone] NRBC abs 0.00 0.00 - 0.01 K/cumm [facility]JAMIN [facility] Comment:Testing performed by : [facility] Heme [facility], [address] [place], [place] [phone] Blood 06/20/2025 11:2 9 AM CDT 06/20/2025 11:37 AM CDT Sheryl Latham MD LAB BLOOD ORDERABLES Final Re sult Performing Organization Address City/[facility]/ZIP Co de Phone Number [facility] [place] [address] * Lactate dehydrogenase (LD) (06/20/2025 11:29 AM CDT) [facility] Lactate dehydrogenase (LDH) 221 100 - 250 Units/L Blood 06/20/2025 11:2 9 AM CDT 06/20/2025 11:37 AM CDT Sheryl Latham MD LAB BLOOD ORDERABLES Final Re sult [facility] [place] [address] * (ABNORMAL) Comprehensive metabolic panel (06/20/2025 11:29 AM CDT) [facility] Sodium 136 135 - 145 mmol/L Potassium, pl 4.8 3.3 - 4.9 mmol/L [facility] Chloride 102 97 - 110 mmol/L [facility] CO2 25 22 - 32 mmol/L [facility] Anion gap 9 2 - 15 mmol/L [facility] BUN 23 6 - 25 mg/dL [facility] Creatinine 1.16(H) 0.60 - 1.10 mg/dL [facility] Glucose 86 70 - 199 mg/dL [facility] Comment: Interpretive Data Fasting glucose [...] 2022. Calcium 9.1 8.5 - 10.3 mg/dL [facility] Bilirubin, total 0.2 0.1 - 1.2 mg/dL [facility] Protein, pl 6.3(L) 6.5 - 8.5 g/dL [facility] Albumin 4.1 3.5 - 5.0 g/dL [facility] Alk phos 77 40 - 130 Units/L [facility] ALT 11 7 - 45 Units/L [facility] AST 20 10 - 45 Units/L [facility] Blood 06/20/2025 11:2 9 AM CDT 06/20/2025 11:37 AM CDT us Sheryl Latham MD LAB BLOOD ORDERABLES Final Re sult [facility] Department [place] [address] * Pulmonary Function Test - (06/17/2025 10:31 AM CDT) FVC PRE 2.11 L [facility] FVC %PRE PRED 88 % [facility] FEV1 PRE 1.38 L [facility] FEV1 %PRE PRED 77 % [facility] FEV1/FVC PRE 65.3 % [facility] FRC PL PRE 2.72 L [facility] FRC PL %PRE PRED 94 % [facility] RV PRE 1.78 L [facility] RV %PRE PRED 70 % [facility] TLC PRE 3.91 L [facility] TLC %PRE PRED 78 % [facility] DLCO PRE 11.2 ml/min/mmH g [facility] DLCO %PRE PRED 63 % [facility] Anatomical Region Laterality Modality PFT 06/17/2025 9:53 AM CDT Narrative 06/20/2025 6:37 PM CDT intermodal dispatcher amiodarone therapy, pft's for toxicity surveillance PFT performed at:->[facility] PUL PFT [id number] Procedure:->Standard Procedure:->Spirometry with [...] and %HbO2 is age dependent. However, the [facility] Pulmonary Function Laboratory defines hypoxemia as a PaO2 <56 mm Hg or a %HbO2 <89%. Starting on September of 2024 the [facility] Pulmonary Function Laboratory utilizes race neutral GLI Global normative equations. Jonh Junior MD PFT ORDERABLES Final Result * BONE MINERAL DENSITY (04/05/2017) Anatomical Region Laterality Modality Radiographic Christi ging Narrative 04/05/2017 Ordered by an unspecified provider. Historical Provider IMG DXA PROCEDURES Final Result from Last 3 Months or Most Recently Relevant to Health Maintenance Insurance MEDICARE [facility] MEDICARE [facility] ACCESS CHOICE ANTHEM ACCESS MEDICARE [facility] Advance Directives For more information, please contact: [phone] * Full Code (Latest Code Status on [...] 4:54 AM 03/24/2021 6:20 PM Care Teams Admin Assistant Relationship Specialty Start Date End Date Ashlee Doyle MD [address] [facility] [address] [place] [address] PCP - General Internal Medicine 09/05/23 Miscellaneous, Not In File 03/24/21 Sheryl Latham MD Medical Oncologist/Swager Operator Medical Oncology 05/12/21 Jonh Junior MD [address] [place] [address] Referring Physician Cardiology 09/05/23
--- OUTSIDE RECORDS SUMMARY | 2025-08-20 09:02 | XMS_ITS | Encounter Summary ---
Author Organization [facility] Address [address] [place] [address] Care Team Providers Care Highway Construction Inspector Name Role Phone Olivia Foss MD Primary Care Provider Unavailable Encounter Details Date Type Department Care Team (Late st Contact Info) Description 02/19/2020 Lab Requisition 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 DermPath Lab Received: 02/19/2020 08:29 AM [...] specimen consists of a shave biopsy measuring 39n2q6cy, bisected. Jar 0+. 0 2:31 PM CDT [...] characteristic determined by the Dermatopathology Laboratory at [facility], directed by Dr. Kwame Agrawal. These tests need not be, and therefore are not, approved by the [place] Food and Drug Administration. The tests are used for clinical purposes. Billing Codes Specimen Charges Stain Charges 52612 1 0 2:31 PM CDT DERMATOPATHOLOGY LABORATORY Embedded Images 0 2:31 PM CDT DERMATOPATHOLOGY LABORATORY Pathology/Cytolog y TISSUE SPECIMEN FROM SKIN / Unknown 02/18/2020 02/19/2020 8:29 AM CDT us Yumiko Dykes MD LAB - PATHOLOGY/CYTOLOGY ORD ERABLES Final Result DERMATOPATHOLOGY LABORATORY [facility] - Department of Dermatology [facility]/[address] [address], [facility] [phone] documented in this encounter Visit Diagnoses Not on filedocumented in this encounter Care Teams Highway Construction Inspector Relationship Specialty Start Date End Date Olivia Foss MD PCP - General 02/05/19 documented as of this encounter
--- OUTSIDE RECORDS SUMMARY | 2025-08-20 09:02 | XMS_ITS | Encounter Summary ---
Author Organization [facility] Address [address] [place] [address] Phone Care Team Providers Care Supervisor Cabinetmaker Name Role Phone Ashlee Doyle MD Primary Care Provider [phone] Cruz Lombardi MD Unavailable [phone] Encounter Details Date Type Department Care Team (Latest Contact Info) Description 08/05/2025 Results Follow-Up [facility] [address] [place] [address] Cruz Lombardi MD [facility] [address] [address] IRON W/ IRON BINDING CAPACITY [...] of Assessment Author 80 08/05/2025 10:47 AM PRESCHOOL ADVISER Brandon, Ursula A, RMA * Resp Answer Date of Assessment Author 18 08/05/2025 10:47 AM PRESCHOOL ADVISER Brandon, Ursula A, RMA * SpO2 Answer Date of Assessment Author 99 08/05/2025 10:47 AM PRESCHOOL ADVISER Brandon, Ursula A, RMA * Question Answer Date of Assessment Author Has the patient fallen twice in the past year without injury or once in the past year with injury? Yes 08/05/2025 10:54 AM PRESCHOOL ADVISER C onrad, Ursula A, RMA Does the patient report or d o you observe difficulty in gait or balance? No 08/05/2025 10:54 AM PRESCHOOL ADVISER Brandon, Ursula A, RMA * Question Answer Date of Assessment Author Initial Score 0 08/05/2025 10:54 AM PRESCHOOL ADVISER Con rad, Ursula A, RMA Little interest or pleasure in doing things Not at all 08/05/2025 10:54 AM PRESCHOOL ADVISER Brandon, Ursula A, RMA Feeling down, depressed, or hopeless Not at all 08/05/2025 10:54 AM PRESCHOOL ADVISER Brandon, Ursula A, RMA * Question Answer Date of Assessment Author Has the patient fallen twice in the past year without injury or once in the past year with injury? Yes 08/05/2025 10:54 AM PRESCHOOL ADVISER C onrad, Ursula A, RMA Does the patient report or d o you observe difficulty in gait or balance? No 08/05/2025 10:54 AM PRESCHOOL ADVISER Brandon, Ursula A, RMA * Question Answer Date of Assessment Author Initial Score 0 08/05/2025 10:54 AM PRESCHOOL ADVISER Con rad, Ursula A, RMA Little interest or pleasure in doing things Not at all 08/05/2025 10:54 AM PRESCHOOL ADVISER Brandon, Ursula A, RMA Feeling down, depressed, or hopeless Not at all 08/05/2025 10:54 AM PRESCHOOL ADVISER Brandon, Ursula A, RMA * Over the past 2 weeks, how often have you been bothered by any of the following problems? Question Answer Date of Assessment Author Patient Health Questionnaire -2 Score 0 08/05/2025 10:54 AM PRESCHOOL ADVISER Brandon, Ursula A, RMA documented as of this encounter Mental Status * BP Answer Entry Date Author 130/62 08/05/2025 10:47 AM PRESCHOOL ADVISER Brandon, Ursula A, RMA * Temp Answer Entry Date Author 98 08/05/2025 10:47 AM PRESCHOOL ADVISER Brandon, Ursula A, RMA * Pulse Answer Entry Date Author 80 08/05/2025 10:47 AM PRESCHOOL ADVISER Brandon, Ursula A, RMA * SpO2 Answer Entry Date Author 99 08/05/2025 10:47 AM PRESCHOOL ADVISER Brandon, Ursula A, RMA * Question Answer Entry Date Author Has the patient fallen twice in the past year without injury or once in the past year with injury? Yes 08/05/2025 10:54 AM PRESCHOOL ADVISER C onrad, Ursula A, RMA Does the patient report or d o you observe difficulty in gait or balance? No 08/05/2025 10:54 AM PRESCHOOL ADVISER Brandon, Ursula A, RMA * Question Answer Entry Date Author Initial Score 0 08/05/2025 10:54 AM PRESCHOOL ADVISER Con rad, Ursula A, RMA Little interest or pleasure in doing things Not at all 08/05/2025 10:54 AM PRESCHOOL ADVISER Brandon, Ursula A, RMA Feeling down, depressed, or hopeless Not at all 08/05/2025 10:54 AM PRESCHOOL ADVISER Brandon, Ursula A, RMA documented in this encounter Plan of Treatment Upcoming Encounters Date Type Department Care Team (Late st Contact Info) Description 09/02/2025 10:45 AM PRESCHOOL ADVISER Office Visit [facility] [address] [address] Cruz Lombardi MD [address] [place] [phone] documented as of this encounter Visit Diagnoses Not on filedocumented in this encounter Care Teams Supervisor Cabinetmaker Relationship Specialty Start Date End Date Ashlee Doyle MD [address] [place] [id number] PCP - General Internal Medicine 07/22/25 Cruz Lombardi MD [address] [place] [phone] Consulting Physician Oncology 07/24/25 documented as of this encounter
--- OUTSIDE RECORDS SUMMARY | 2025-08-20 09:02 | XMS_ITS | Encounter Summary ---
Author Organization [facility] Address [address] [place] [address] [address] Care Drive In Teller Name Role Phone Olivia Foss MD Primary Care Provider Unavailable Encounter Details Date Type Department Care Team (Late st Contact Info) Description 04/09/2019 Lab Requisition [facility] [address] [facility] [place] [address] Olivia Fernandez MD [address] [facility] [address] [place] [address] Social History Tobacco Use Types Packs/Day Years Used Date Smoking Tobacco: Never Assessed Comments Unknown Sex and Gender Information Value Date Recorded Sex Assigned at Not on file 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 Previous Bx: [id number]. 3:47 PM CDT DERMATOPATHOLOGY LABORATORY Gross Description Specimen A: Received is one formalin filled container labeled with the patient's name and designated left fa. The specimen consists of a non-oriented ellipse of skin measuring [id number]. The epidermal surface is unremarkable. The margin [...] characteristic determined by the Dermatopathology Laboratory at [facility], directed by Dr. Kwame Agrawal. These tests need not be, and therefore are not, approved by the [place] Food and Drug Administration. The tests are used for clinical purposes. Billing Codes Specimen Charges Stain Charges 43406 1 3:47 PM CDT DERMATOPATHOLOGY LABORATORY Embedded Images 3:47 PM CDT DERMATOPATHOLOGY LABORATORY Pathology/Cytolog y TISSUE SPECIMEN FROM SKIN / Unknown 04/06/2019 04/09/2019 6:40 AM CDT Olivia Fernandez MD LAB - PATHOLOGY/CYTOLOGY OR DERABLES Final Result DERMATOPATHOLOGY LABORATORY [facility] - Department of Dermatology [address] [facility] [place] [address], [facility] [phone] documented in this encounter Visit Diagnoses Not on filedocumented in this encounter Care Teams Drive In Teller Relationship Specialty Start Date End Date Olivia Foss MD PCP - General 02/05/19 documented as of this encounter
--- OUTSIDE RECORDS SUMMARY | 2025-08-20 09:02 | XMS_ITS | Continuity of Care Document ---
Author Organization [place] - [employer], [employer] Address [address] [place] [address] Care Team Providers Care Able Bodied Watchman Name Role Phone ASHLEE DOYLE Primary Care [...] panel w/ direct LDL, serum 2024 025 [facility], [address] [place], [address], 07/23/2025 05:34:31 CMP, serum or plasma 2024 025 [facility], [address] [place], [address], 07/23/2025 05:34:31 CBC w/ auto diff 2024 [facility], [address] [place], [address], 07/23/2025 05:34:31 iron panel, serum or plasma 2024 [facility], [address] [place], [address], 07/21/2025 17:43:33 vitamin B12 + folate, serum or blood 2024 [facility], [address] [place], [address], 07/21/2025 17:43:33 pro BNP (pro B-type natriuret ic peptide), serum or plasma 2024 [facility], [address] [place], [address], 07/21/2025 17:43:32 Referral None recorded. Procedures None recorded. Surgeries None recorded. Imaging XR, cervical spine, 2 or 3 view 2024 [facility] ([facility]), [address] [place], [address], 07/19/2025 12:24:31 US, duplex, carotid artery 2024 [facility], [address], [place], [address], 07/09/2025 17:47:54 Medication Orders polysacch aride iron complex 150 mg iron capsule 2024 [id number] [facility], [address] [place], [address], 07/09/2025 12:37:22 cyanocoba reggie (vit B-12) 1,000 mcg sublingua l tablet 2024 025 [id number], [address] [place], [address], 07/09/2025 12:37:22 Patient TargetsNo targets recorded. Patient Instructions Encounter Date Encounter Id Patient Instructions Last Modified By Organization Details Last Modified Time 07/09/2025 [id number] Peripheral Arterial Disease (PAD): Care Instructions [facility] Not available 07/09/2025 12:37:17 (RANGEL) ankle brachial index* ESTEFANIA Not available 07/09/2025 17:47:49 mammogram: about this test [facility] Not available 07/09/2025 12:37:17 neck pain: care instructions [facility] Not available 07/09/2025 12:37:17 learning about healthy weight [facility] Not available 07/09/2025 12:37:17 anemia: care instructions [facility] Not available 07/09/2025 12:37:17 carotid stenosis : care instructions [facility] Not available 07/09/2025 12:37:17 heart failure: care instructions [facility] Not available 07/09/2025 12:37:16 learning about heart failure [facility] Not available 07/09/2025 12:37:17 Reason for Referral None Reported. Results Created Date Observation Date Name Description Value Unit Range Abnormal Flag Note LastModifiedBy Organization Detail LastModifiedTime 07/09/2007/09/2025 US, jennifer x, juan id arter y No observ ation record ed. [facility], [facility] [address], [place], [address], 07/09/2025 17:47:54 07/19/2007/19/2025 XR, cervi clay spine , 2 or 3 view No observ ation record ed. [facility] [address] [place], [address], 07/23/2025 13:26:58 08/12/20 25 08/12/2025 XR, chest , 2 view No observ ation record ed. [email or web address] [facility] [address], [place], [address], 08/13/2025 10:31:26 Result Notes None recorded. Problems Name Problem SNOMED Code Status Onset Date Resolution Date Notes Provider Name and Address Organization Details Recorded Time Benign hypertens ion 41640717 Active 2016 Not Available [facility] 3 14:49:31 Hyperlipi demia 24090012 Active 2016 Not Available [facility] 3 14:49:31 Hemorrhoi ds 99805355 Active 2016 Not Available [facility] 3 14:49:31 Left bundle branch block 68339167 Active 2016 sees cardiolog y once a year Not Available [facility] 3 14:49:31 Osteopeni a 330187486 Active 2016 Not Available 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 829845855 Active 2016 Not Available [facility] 3 14:49:31 Carotid artery stenosis 78349830 Active 2016 Not Available [facility] 3 14:49:31 Focal onset epileptic seizure 25965882 Active 2017 Not Available [facility] 3 14:49:31 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 859097482 Active 2017 Not Available [facility] 3 14:49:31 History of Malignant melanoma 773229729 Active 2018 Not Available [facility] 3 14:49:31 Gastroeso phageal reflux disease without esophagit is 710028327 Active 2018 Not Available [facility] 3 14:49:31 Ophthalmi c migraine 29508838 Active 2018 on ophth note 07/24/19 Not Available [facility] 3 14:49:31 Open-angl e glaucoma of left eye 292285135 Active 2018 on ophth note 07/24/19 Not Available [facility] 3 14:49:31 Idiopathi c periphera l neuropath y 37835495 Active 2019 Not Available [facility] 3 14:49:31 Family history of diabetes mellitus 343566905 Active 2019 Not Available [facility] 3 14:49:31 Neoplasm of supraclav icular region 302141337 Active 2020 Not Available [facility] 3 14:49:31 Hyponatre kasandra 99121334 Active 2020 Not Available [facility] 3 14:49:31 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, face AND/OR neck 16442225 Active 2020 Not Available [facility] 3 14:49:31 Coronary arteriosc lerosis 64302041 Active 2020 non occlusive per cardiolog y note 06/11/21 Not Available [facility] 3 14:49:31 Paroxysma l atrial fibrillat ion 969602865 Active 2020 Not Available [facility] 3 14:49:31 Diffuse high grade B-cell lymphoma 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 3 14:49:31 Vitamin B deficienc y 37281843 Active 2022 Not Available [facility] 3 14:49:31 Mixed urinary incontine nce 325118289 Active 2022 Not Available [facility] 3 14:49:31 Hypomagne semia 698242006 Active 2022 Not Available [facility] 3 14:49:31 Mixed hyperlipi demia 238315056 Active 2022 Not Available [facility] 3 14:49:31 Insomnia 953584444 Active 2022 Not Available [facility] 3 14:49:31 Periphera l vascular disease 342704926 Active 2022 MD Aurelia Galeano[address], [place], [address] , [facility] 3 11:47:35 Anemia 975661808 Active 2023 Ashlee Doyle MD [address], [place], [address] , [facility] 4 22:05:29 Body mass index less than 20 728930066 Active 2023 MD Kane Galeano [address], [place] , [facility] 4 11:56:56 Dysphagia 00509976 Active 2023 MD Kane Galeano [address], [place], [address] , [facility] 4 14:14:25 Mild memory disturban ce 152391969 Active 2023 MD Kane Galeano [address], [place], [address] , [facility] 4 13:46:21 Congestiv e heart failure 45672668 Active 2023 Ashlee Doyle MD [address], [place], [address] , [facility] 4 12:20:10 Iron deficienc y anemia 86518324 Active 2023 Ashlee Doyle MD [address], [place], , [facility] 4 12:22:31 Left bundle branch block 67934875 Active 2023 Ashlee Doyle MD [address], [place], , [facility] 4 12:26:56 Stasis dermatiti s 97735856 Active 2023 Ashlee Doyle MD [address], [place], , [facility] 4 12:34:37 Fungal esophagit is 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 Active 2023 Ashlee Doyle MD [address], [place], , [facility] 4 17:34:02 CT of abdomen abnormal 60444577512 290061 Active 2024 Ashlee Doyle MD [address], [place], [address] , [facility] 5 20:40:35 Prediabet es 417310142 Active 2024 Dxed by A1c 6.2% on 10/23/24 MD Aurelia Galeano[address], [place], , [facility] 5 21:01:29 Primary insomnia 4842445 Active 2024 MD Kane Galeano [address], [place], , [facility] 5 18:49:04 Problem Notes None recorded. Procedures Surgical History Date Name Laterality Status Provider Name and Address Organization Details Recorded Time Partial Hysterectomy completed Ashlee Doyle MD [address], [place], [address], [facility] 05/10/2017 15:03:45 Imaging Results None recorded. Procedure Notes None recorded. Medical Equipment None Reported. Allergies Allergen ID Allergen Name Allergen Category Reaction Reaction Severity Criticality Documentation Date Start Date Code Code System Note Provider Name and Address Organization Details Recorded Time 68720 solifenac in medicatio n dry mouth Not available Not available 10/12/2022 46569 7 RxNorm Not Available [facility] 3 14:49:32 78619 sulfur dioxide medicatio n facial swelling Not available Not available 01/11/2025 73984 79 RxNorm Not Available [facility] [employer] - prod 5 10:56:21 5921 Substance with sulfonami de structure and antibacte rial mechanism of action (substanc e) medicatio n other Not available Not available 05/10/2017 45024 8003 SNOMED swell ing Ashlee Doyle MD [address], [place], [address], [facility] 7 15:03:33 Medications Name [...] Available Not Available Not Available Fluzone High-Dose 7269-0358 (PF) 180 mcg/0.5 mL intramuscul ar syringe [...] Not Available No t Available Fluzone High-Dose 1595-8142 (PF) 180 mcg/0.5 mL intramuscul ar syringe [...] 5 167.64 cm 98.7 [degF] 18.2 kg/m2 65309.9 4 g 18 /min 80 /min 128/52 mm[Hg] Migdalia ePraza [facility] 5 11:48:39 Social History Question Answer Notes LastModified by Organizat ion Details LastModified Time Tobacco Smoking Status Never Smoker Ashlee Doyle MD [address], [place], [address], [facility] 05/10/2017 15:11:55 What Is [...] 01/13/2021 Live Alone Or With Others? Alone [facility] Information not available 05/10/2017 Marital Status [facility] Informatio n not available 05/10/2017 What Was [...] preservative 8 completed MD Kane Galeano [address], [place], [address], [facility] 06/12/2023 16:15:07 zoster recombinant 9 completed MD Kane Galeano [address], [place], [address], [facility] 06/12/2023 16:15:07 zoster live 9 completed MD Kane Galeano [address], [place], [address], [facility] 06/12/2023 16:15:08 zoster live 9 MD Kane Julian [address], [place], [address], [facility] 06/12/2023 16:15:08 Influenza, split virus, quadrivalent, preservative 9 completed MD Kane Galeano [address], [place], [address], [facility] 06/12/2023 16:15:07 Influenza, split virus, quadrivalent, preservative 0 completed MD Kane Galeano [address], [place], [address], [facility] 06/12/2023 16:15:07 SARS-COV-2 (COVID-19) vaccine, UNSPECIFIED 1 completed MD Kane Galeano [address], [place], [address], [facility] 06/12/2023 16:15:07 COVID-19, mRNA, LNP-S, PF, 30 mcg/0.3 mL dose 1 completed MD Kane Galeano [address], [place], [address], [facility] 06/12/2023 16:15:07 Influenza, split virus, quadrivalent, preservative 1 completed MD Kane Galeano [address], [place], [address], [facility] 06/12/2023 16:15:07 COVID-19, mRNA, LNP-S, PF, 30 mcg/0.3 mL dose 2 completed MD Kane Galeano [address], [place], [address], [facility] 06/12/2023 16:15:07 Influenza, high-dose, quadrivalent, PF 2 completed MD Kane Galeano [address], [place], [address], [facility] 06/12/2023 16:15:07 Influenza, MDCK, quadrivalent, PF 3 completed MD Kane Galeano [address], [place], [place], [address] [place] [address], [facility] 06/12/2023 16:15:07 RSV, recombinant, protein subunit RSVpreF, adjuvant reconstituted, 0.5 mL, PF 3 completed MD Kane Galeano [address], [place], [place], [address] [place] [address], [facility] 06/12/2023 16:15:07 COVID-19, mRNA, LNP-S, PF, nicole-sucrose, 30 mcg/0.3 mL 3 completed MD Kane Galeano [address], [place], [address] [place] [address], [facility] 06/12/2023 16:15:07 COVID-19, mRNA, LNP-S, PF, nicole-sucrose, 30 mcg/0.3 mL 4 completed MD Kane Galeano [address], [place], [address], [facility] 06/01/2024 14:33:16 COVID-19, mRNA, LNP-S, PF, nicole-sucrose, 30 mcg/0.3 mL 4 completed MD Kane Galeano [address], [place], [address] [place] [address], [facility] 06/01/2024 14:33:16 Influenza, high-dose, trivalent, PF 4 completed MD Kane Galeano [address], [place], [address] [place] [address], [facility] 06/01/2024 14:33:16 COVID-19, mRNA, LNP-S, PF, nicole-sucrose, 30 mcg/0.3 mL 5 completed MD Kane Galeano [address], [place], [address] [place] [address], [facility] 12/26/2024 19:01:03 COVID-19, mRNA, LNP-S, bivalent, PF, 10 mcg/0.2 mL 5 completed Roxana moy, [facility] 06/27/2025 14:45:22 influenza, unspecified formulation 5 completed Roxana moy, [facility] 06/27/2025 14:46:36 Pneumococcal conjugate PCV20, polysaccharide QAC245 conjugate, adjuvant, PF 5 completed Lashon Gagnon null, [facility] 08/03/2025 19:14:26 Td(adult) unspecified formulation 6 completed MD Kane Galeano [address], [place], [address], [facility] 06/12/2023 16:15:07 Influenza, split virus, quadrivalent, preservative 6 completed MD Kane Galeano [address], [place], [address], [facility] 06/12/2023 16:15:07 Influenza, split virus, quadrivalent, preservative 7 completed MD Kane Galeano [address], [place], [address], [facility] 06/12/2023 16:15:07 Pneumococcal conjugate PCV 13 5 completed MD Kane Galeano [address], [place], [address], [facility] 06/12/2023 16:15:08 pneumococcal polysaccharide PPV23 9 completed MD Kane Galeano [address], [place], [address], [facility] 06/12/2023 16:15:07 zoster live 0 completed MD Kane Galeano [address], [place], [address], [facility] 06/12/2023 16:15:08 Hep B, unspecified formulation 8 completed MD Kane Galeano [address], [place], [address], [facility] 06/12/2023 16:15:08 Hep A, adult 8 completed MD Kane Galeano [address] [address] [facility], [place], [address], [facility] 06/12/2023 16:15:08 Past Encounters Encounter ID Performer Location Encounter Start Date Encounter Closed Date Diagnosis/Indication Diagnosis SNOMED-CT Code Diagnosis ICD10 Code Diagnosis IMO Codes Diagnosis Note [id number] Ashlee Doyle MD [facility], [place] [address] [facility] [place] [address] 07/09/2025 11:34:48 07/09/2025 12:47:12 Benign hypertension 12020344 I10 - good control- BP 2 weeks- seen ophth 06/2025 per pt- last EKG 04/02/25 Congestive heart failure 56213108 I50.9 - last ECHO 10/2023 , EF 45%- resolved Paroxysmal atrial fibrillation 640175514 I48.0 - cardiology had holter ,- anita score 4-5- anticoagul ation safty education Peripheral vascular disease 615398699 I73.9 - per cardiology note 01/21/23 Carotid ar petar stenosis 73502606 I65.29 - last U/S 10/12/22 per pt Mixed hyperlipidemia 267 966863 E78.2 - last LDL 10/23/24 Neck pain 83269361 M54.2 72370 Prediabetes 299685927 R7 3.03 - last A1c 04/16/25 Body mass index less than 20 443429643 Z68.1 education Vitamin B deficiency 479 22173 E53.9 b12 06/21/23 Hypomagnesemia 408578345 E83.42 - last level 04/16/25 Anemia 776902093 D64.9 Screening mammography 278407 Z12.31 9682763712 per pt had mammogram 04/16/25 Screening for malignant neoplasm of cervix 804302124 Z12.4 328652 per pt had PAP 06/2023 Screening for malignant neoplasm of colon 973970762 Z12.11 134996 last C scope 11/06/13 , no polyp Immunization due 6038598 08 Z23 1229798 up to date Health Concerns Section Related Observation LastModified by Organization Detai ls LastModified Time None Recorded Concern Status LastModified by Organization Details LastModified Time None Recorded Payers Encounter Date Sequence Insurance Name Policy Number Policy Tai Covered Member ID Tai Member ID Guarantor Name 07/09/2025 2 [place] 104 Agustina Velasquez Art [id number] Agustina Cordova 07/09/2025 1 [place] Agustina Velasquez Cordova [id number] Agustina Art Notes Date Note Type [...] exertion, andno headache. Ashlee Doyle MD [address], [place], [address], [facility] 07/09/2025 12:40:58 OBGyn Episode No OBEpisode recorded.
--- OUTSIDE RECORDS SUMMARY | 2025-08-20 09:02 | XMS_ITS | Encounter Summary ---
Author Organization Desk Care Team Providers Care Thermo Processor Name Role Phone Ashlee Doyle MD Primary Care Provider [phone] Cruz Lombardi MD Unavailable [phone] Encounter Details Date Type Department Care Team (Latest Contact Info) Description 08/19/2025 Travel Social History Tobacco Use Types Packs/Day Years [...] Assessment Author 114/66 08/19/2025 11:12 AM Ruthy eMsser mp, RN * Temp Answer Date of [...] Entry Date Author 97.4 08/19/2025 11:12 AM LOGISTICS TEAM LEAD Ruthy Bedolla mp, RN * Pulse Answer Entry Date Author 68 08/19/2025 11:12 AM LOGISTICS TEAM LEAD Ruthy Bedolla mp, RN * SpO2 Answer Entry Date Author 94 08/19/2025 11:12 AM LOGISTICS TEAM LEAD Ruthy Bedolla mp, RN documented in this encounter Plan of Treatment Upcoming Encounters Date Type Department Care Team (Late st Contact Info) Description 09/02/2025 10:45 AM LOGISTICS TEAM LEAD Office Visit [facility] [address] [place] [address] Cruz Lombardi MD [address] [place] [address] documented as of this encounter Visit Diagnoses Not on filedocumented in this encounter Care Teams Thermo Processor Relationship Specialty Start Date End Date Ashlee Doyle MD [address] [place] [address] PCP - General Internal Medicine 07/22/25 Cruz Lombardi MD [address] [place] [phone] Consulting Physician Oncology 07/24/25 documented as of this encounter
--- OUTSIDE RECORDS SUMMARY | 2025-08-20 09:02 | XMS_ITS | Clinical Summary ---
Author Organization [facility] Address [address] [place] [address] Phone Care Team Providers Care Bag Machine Operator Name Role Phone Ashlee Doyle MD Primary Care Provider [phone] Cruz Lombardi MD Unavailable [phone] Allergies Active Allergy Reactions Criticality Noted Date [...] 1,000 mg by mouth. 08/21/20 21 Active Vilazodone HCl 10 MG Tablet 1 tab Po QHS 08/07/20 25 Active Active Problems Problem Noted Date Diagnosed Date Anemia due to unknown mechanism 08/05/2025 Iron deficiency anemia, unspecified 08/05/2025 Encounters Date Type Department Care Team Description 08/19/2025 12:15 PM WELDER [facility] CLASS Lab [facility] [address] [address] Iron deficiency anemia, unspecified iron deficiency anemia type 08/19/2025 10:45 AM WELDER FIRST CLASS Office Visit [facility] [address] [address] Cruz Lombardi MD Iron deficiency anemia, unspecified iron deficiency anemia type (Primary Dx) 08/19/2025 Travel 08/05/2025 11:15 AM WELDER FIRST CLASS Lab [facility] [address] [address] [facility] Anemia due to unknown mechanism 08/05/2025 10:30 AM WELDER FIRST CLASS Office Visit [facility] [address] [address] Cruz Lombardi MD Anemia due to unknown mechanism (Primary Dx) 08/05/2025 Results Follow-Up [facility] [address] [address] Cruz Lombardi MD IRON W/ IRON BINDING [...] Comments Blood Pressure 114/66 08/19/2025 11:12 AM WELDER FIRST CLASS Pulse 68 08/19/2025 11:12 AM WELDER FIRST CLASS Temperature 36.3 C (97.4 F) 08/19/2025 11:12 AM WELDER FIRST CLASS Respiratory Rate 16 08/19/2025 11:12 AM WELDER FIRST CLASS Oxygen Saturation 94% 08/19/2025 11:12 AM WELDER FIRST CLASS Inhaled Oxygen Concentration - - Weight 53.5 kg (118 lb) 08/19/2025 11:12 AM WELDER FIRST CLASS Height 166.4 cm (5' 5.5) 08/19/2025 11:12 AM CS T Body Mass Index 19.34 08/19/2025 11:12 AM WELDER FIRST CLASS Plan of Treatment Upcoming Encounters Date Type Department Care Team (Late st Contact Info) Description 09/02/2025 10:45 AM WELDER FIRST CLASS Office Visit [facility] [address] [address] Cruz Lombardi MD [address] [place] [address] Health Maintenance Due Date Last Done Comments DEXA Bone Density 1935 Hepatitis C Virus (HCV) Screening 1935 Medicare Initial AWV [id number] 12/19/2003 SARS-COV-2 Immunization [...] AUTO DIFF OH Routine 08/19/2025 11:57 AM WELDER FIRST CLASS CBC WITH AUTO DIFF OH Routine 08/05/2025 11:20 AM WELDER FIRST CLASS CMP (COMPREHENSIVE METABOLIC PANEL) Routine 08/05/2025 11:20 AM WELDER FIRST CLASS Anemia due to unknown mechanism LACTATE DEHYDROGENASE (LD) Routine 08/05/2025 11:20 AM WELDER FIRST CLASS Anemia due to unknown mechanism FOLIC ACID (FOLATE) Routine 08/05/2025 1 1:20 AM WELDER FIRST CLASS Anemia due to unknown mechanism FERRITIN Routine 08/05/2025 11:20 AM WELDER FIRST CLASS Anemia due to unknown mechanism RETICULOCYTE COUNT (RETIC) Routine 08/05/2025 11:20 AM WELDER FIRST CLASS Anemia due to unknown mechanism IRON W/ IRON BINDING CAPACITY [place] Routine 08/05/2025 11:20 AM WELDER FIRST CLASS Anemia due to unknown mechanism VITAMIN B12 Routine 08/05/2025 11:20 AM WELDER FIRST CLASS Anemia due to unknown mechanism HAPTOGLOBIN Routine 08/05/2025 11:20 AM WELDER FIRST CLASS Anemia due to unknown mechanism ELECTROPHORESIS W/ TOTAL PROTEIN SERUM Routine 08/05/2025 11:20 AM WELDER FIRST CLASS Anemia due to unknown mechanism from Last 3 Months Results * (ABNORMAL) CBC WITH AUTO DIFF [place] (08/19/2025 11:57 AM WELDER FIRST CLASS) Only the most recent of2 resultswithin the time period is included. WBC 7.2 4.0 - 10.0 10*3/uL [facility] HGB 8.6(L) 11.2 - 15.7 g/dL [facility] HCT 28.6(L) 34.1 - 44.9 % [facility] PLT 189 163 - 369 10*3/uL [facility] MPV 9.3(L) 9.4 - 12.4 fL [facility] SITE SUPERVISOR [facility] RBC 3.39(L) 3.93 - 5.22 10*6/uL [facility] SITE SUPERVISOR [facility] MCV 84 79 - 95 fL [facility] SITE SUPERVISOR [facility] MCH 25.4(L) 25.6 - 32.2 pg [facility] SITE SUPERVISOR [facility] MCHC 30.1(L) 32.2 - 36.5 g/dL [facility] SITE SUPERVISOR [facility] RDW 19.7(H) 11.6 - 14.4 % [facility] SITE SUPERVISOR [facility] Neutrophils % 57.3 36.0 - 66.0 % [facility] SITE SUPERVISOR [facility] Lymphocytes % 28.9 19.0 - 40.0 % [facility] SITE SUPERVISOR [facility] Monocytes % 11.0 4.1 - 12.1 % [facility]CER SITE SUPERVISOR [facility] Eosinophils % 1.3 0.0 - 3.5 % [facility]CER SITE SUPERVISOR [facility] Basophils % 1.1(H) 0.0 - 1.0 % [facility] SITE SUPERVISOR [facility] Absolute Neutrophils 4.1 1.4 - 6.6 10*3/uL [facility] Absolute Lymphocytes 2.1 0.8 - 4.0 10*3/uL [facility] Absolute Monocytes 0.8 0.2 - 1.2 10*3/uL [facility] Absolute Eosinophils 0.1 0.0 - 0.4 10*3/uL [facility] Absolute Basophils 0.1 0.0 - 0.1 10*3/uL [facility] 08/19/2025 11:5 7 AM WELDER FIRST CLASS us Cruz Lombardi MD LAB SEND OUTS Final Result [facility]PER[facility] [place] [address], * (ABNORMAL) IRON W/ IRON BINDING CAPACITY [place] (08/05/2025 11:20 AM WELDER FIRST CLASS) IRON 20(L) 50 - 212 ug/dL [facility]PER[facility] UIBC 457(H) 155 - 355 ug/dL [facility] SITE SUPERVISOR [facility] TIBC 477 261 - 478 ug/dl [facility]ITE SUPERVIS[facility] % Saturation 4(L) 20 - 50 % [facility] SITE SUPERVISOR [facility] 08/05/2025 11:2 0 AM WELDER FIRST CLASS Narrative [facility] - 08/05/2025 12:29 PM WELDER FIRST CLASS Release to patient->Immediate us Cruz Lombardi MD LAB SEND OUTS Final Result Performing Organization Address [facility] Co de Phone Number [facility] SITE SUPERVISOR [facility] [place] [address], * VITAMIN B12 (08/05/2025 11:20 AM WELDER FIRST CLASS) Vitamin B12 209 180 - 914 pg/mL [facility]PER[facility] Blood 08/05/2025 11:2 0 AM WELDER FIRST CLASS Narrative [facility] - 08/06/2025 3:15 PM WELDER FIRST CLASS Release to patient->Immediate Cruz Lombardi MD CHEMISTRY ORDERABLES Final R esult Performing Organization Address [facility] de Phone Number [facility] Cancer Care [address] [place] [address], [place] [phone] * (ABNORMAL) RETICULOCYTE COUNT (RETIC) (08/05/2025 11:20 AM WELDER FIRST CLASS) Reticulocyte count 1.71(H) 0.50 - 1.70 % [facility] RET-He 23.80(L) 28.20 - 36.60 pg [facility] SUPER[facility]OR [facility] Comment: RET-He is a direct assessment of incorporation of iron into erythrocyte hemoglobin. It provides an indirect measure of the iron available for new erythropoiesis over past 2-4 days. Blood 08/05/2025 11:2 0 AM WELDER FIRST CLASS [facility] - 08/05/2025 11:38 AM WELDER FIRST CLASS Release to patient->Immediate us Cruz Lombardi MD HEMATOLOGY ORDERABLES Final Result Performing Organization Address [facility] Co de Phone Number [facility] SITE SUPERVIS[facility] [address] [place] [address], [place] [phone] * LACTATE DEHYDROGENASE (LD) (08/05/2025 11:20 AM WELDER FIRST CLASS) LDH 195 140 - 271 U/L [facility] Blood 08/05/2025 11:2 0 AM WELDER FIRST CLASS Narrative [facility]PER[facility] - 08/05/2025 12:13 PM WELDER FIRST CLASS Release to patient->Immediate us Cruz Lombardi MD CHEMISTRY ORDERABLES Final R esult Performing Organization Address [facility] de Phone Number [facility] SITE SUPERVISOR [facility] [place] [address], [place] [phone] * HAPTOGLOBIN (08/05/2025 11:20 AM WELDER FIRST CLASS) HAPTO 176 44 - 215 mg/dL [facility] Blood 08/05/2025 11:2 0 AM WELDER FIRST CLASS [facility] - 08/06/2025 3:15 PM WELDER FIRST CLASS Release to patient->Immediate us Cruz Lombardi MD CHEMISTRY ORDERABLES Final R esult Performing Organization Address [facility] Co de Phone Number [facility] SITE SUPERVISOR [facility] [place] [address], [place] [phone] * FOLIC ACID (FOLATE) (08/05/2025 11:20 AM WELDER FIRST CLASS) Folate >20.00 >=5.90 ng/mL [facility] Blood 08/05/2025 11:2 0 AM WELDER FIRST CLASS Narrative [facility] - 08/06/2025 3:15 PM WELDER FIRST CLASS Release to patient->Immediate IS THE PATIENT REQUIRED TO BE FASTING FOR 12 HOURS?->No us Cruz Lombardi MD CHEMISTRY ORDERABLES Final R esult Performing Organization Address City/[facility]/ZIP Co de Phone Number [facility] SUPER[facility] [address] [address], [place] [phone] * FERRITIN (08/05/2025 11:20 AM WELDER FIRST CLASS) Pathologist [facility] Ferritin 17 11 - 307 ng/mL [facility]ITE SUPER[facility]OR [facility] Blood 08/05/2025 11:2 0 AM WELDER FIRST CLASS Narrative [facility] S[facility] SUPER[facility] - 08/06/2025 3:15 PM WELDER FIRST CLASS Release to patient->Immediate us Cruz Lombardi MD CHEMISTRY ORDERABLES Final R esult Performing Organization Address [facility] Co de Phone Number [facility] SITE SUPER[facility] [address] [address], [place] [phone] * (ABNORMAL) ELECTROPHORESIS W/ TOTAL PROTEIN SERUM (08/05/2025 11:20 AM WELDER FIRST CLASS) Pathologist [facility] PROTEIN, TOTAL, SERUM 5.8(L) 6.0 - 8.5 G/DL [facility]PER[facility] ALBUMIN 3.4 2.9 - 4.4 G/DL [facility] [id number] 0.3 0.0 - 0.4 G/DL [facility] SUPER[facility] [id number] 0.7 0.4 - 1.0 G/DL [facility] SU[facility] BETA GLOBULIN 0.9 0.7 - 1.3 G/DL [facility] S[facility] SUPER[facility]OR [facility] GAMMA GLOBULIN 0.5 0.4 - 1.8 G/DL [facility] M-SPIKE NOT OBSERVED NOT OBSERVED G/DL [facility] SITE SUPER[facility]OR [facility] GLOBULIN, TOTAL 2.4 2.2 - 3.9 G/DL [facility]PER[facility] A/G RATIO 1.4 0.7 - 1.7 [facility] PLEASE NOTE: COMMENT [facility] [place] Comment: PROTEIN ELECTROPHORESIS SCAN WILL FOLLOW VIA COMPUTER, MAIL, OR HEARING THERAPY DIRECTOR DELIVERY. PDF . [facility] Blood 08/05/2025 11:2 0 AM WELDER FIRST CLASS Narrative [facility]PER[facility] - 08/06/2025 3:09 PM WELDER FIRST CLASS TESTING PERFORMED AT: [] [address], [place], [address], PHONE: [phone], PILOT PLANT RESEARCH TECHNICIAN: VANESSA MACHADO, PHD Release to patient->Immediate us Cruz Lombardi MD CHEMISTRY ORDERABLES Final R esult [facility] SITE SUPER[facility]OR [facility] [place] [address], * (ABNORMAL) CMP (COMPREHENSIVE METABOLIC PANEL) (08/05/2025 11:20 AM WELDER FIRST CLASS) Glucose 98 70 - 105 mg/dL [facility] Blood Urea Nitrogen 13 7 - 25 mg/dL [facility] Creatinine 1.1 0.6 - 1.2 mg/dL [facility] Sodium 136 136 - 145 mEq/L [facility] Potassium 4.2 3.5 - 5.1 mEq/L [facility] Chloride 102 98 - 107 mEq/L [facility] Bicarbonate 25 21 - 31 mEq/L [facility] Total Bilirubin 0.4 0.3 - 1.0 mg/dL [facility] SITE SUPERVISOR [facility] Alk. Phosphatase 79 34 - 104 U/L [facility] Aspartate Aminotransferase 16 13 - 39 U/L [facility] Alanine Aminotransferase 9 7 - 52 U/L [facility] Total Protein 5.9(L) 6.4 - 8.9 g/dL [facility] SITE SUPERVISOR [facility] Albumin 4.1 3.5 - 5.7 g/dL [facility] Calcium 9.0 8.6 - 10.3 mg/dL [facility] Anion Gap 13.2 7.0 - 15.0 mEq/L [facility] Globulin 1.8(L) 2.0 - 3.5 g/dL [facility]PER[facility] EGFR 48(L) >60 ml/min/1. 73m2 [facility] SUPER[facility] Comment: This eGFR is calculated using 2020 CKD-EPI Creatinine equation without race modifier based on the NKF-ASN task force recommendations Equation: eQOI=161*min(SCr/k,1)a*max(SCr/k,1)-1.200*0.9938Age*1.012 (if female), where SCr is serum creatinine, k is 0.7 for females and 0.9 for males, and a is -0.241 for females and -0.302 for males Blood 08/05/2025 11:2 0 AM WELDER FIRST CLASS Narrative [facility] - 08/05/2025 12:13 PM WELDER FIRST CLASS Release to patient->Immediate IS THE PATIENT REQUIRED TO BE FASTING FOR 8 HOURS?->No us Cruz Lombardi MD CHEMISTRY ORDERABLES Final R esult [facility]PER[facility] [address] [place] [address], from Last 3 Months Insurance MEDICARE [facility] Care Teams Bag Machine Operator Relationship Specialty Start Date End Date Ashlee Doyle MD [address] [place] [address] PCP - General Internal Medicine 07/22/25 Cruz Lombardi MD [address] [place] [phone] Consulting Physician Oncology 07/24/25
--- OUTSIDE RECORDS SUMMARY | 2025-08-20 09:02 | XMS_ITS | Encounter Summary ---
Author Organization [facility] Healthcare Address [address] [place] [address] Care Team Providers Care Batch Roller Operator Name Role Phone Ashlee Doyle MD Primary Care Provider [phone] Randi Barney MD Unavailable Miscellaneous, Not In File Unavailable Unava ilable Sheryl Latham MD Unavailable Jonh Junior MD Primary Care Provide r Ashlee Doyle MD Primary Care Provider [phone] Jonh Junior MD Unavailable Encounter Details Date Type Department Care Team (Late st Contact Info) Description 03/31/2021 Telephone [facility] Radiology [facility] [address] [place] [address] Kindra Mir, RT Social History Tobacco Use Types Packs/Day Years Used Date Smoking Tobacco: Never Smokeless Tobacco: Never Alcohol Use Standard Drinks/Week Comments Yes 0 (1 standard drink = 0.6 oz pur e alcohol) Comments No Sex and Gender Information Value Date Recorded Sex Assigned at Not on file Legal Sex Female 2:10 AM 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 Gender Identity Not on file Sexual [...] documented as of this encounter Care Teams Batch Roller Operator Relationship Specialty Start Date End Date Ashlee Doyle MD [address] [place] [address] PCP - General 02/09/18 08/24/23 Jonh Junior MD PCP - General Cardiology 08/25/23 09/04/23 Ashlee Doyle MD [address] [place] [address] PCP - General Internal Medicine 09/05/23 Randi Barney MD [address] [place] [address] Referring Physician Cardiology 03/12/21 08/24/23 Miscellaneous, Not In File 03/24/21 Sheryl Latham MD Medical Oncologist/Pathology Laboratory Technologist Medical Oncology 05/12/21 Jonh Junior MD Referring Physician Cardiology 09/05/23 documented as of this encounter
--- OUTSIDE RECORDS SUMMARY | 2025-08-21 06:23 | XMS_ITS | Encounter Summary ---
Author Organization [facility] Address [address] [place] [address] Phone Care Team Providers Care Dial Mounter Name Role Phone Ashlee Doyle MD Primary Care Provider [phone] Cruz Lombardi MD Unavailable [phone] Encounter Details Date Type Department Care Team (Latest Contact Info) Description 08/05/2025 Results Follow-Up [facility] [place] [address] [place] [address] Cruz Lombardi MD [facility] [address] [address] IRON W/ IRON BINDING CAPACITY [...] of Assessment Author 80 08/05/2025 10:47 AM RECLAIMER Brandon, Ursula A, RMA * Resp Answer Date of Assessment Author 18 08/05/2025 10:47 AM RECLAIMER Brandon, Ursula A, RMA * SpO2 Answer Date of Assessment Author 99 08/05/2025 10:47 AM RECLAIMER Brandon, Ursula A, RMA * Question Answer Date of Assessment Author Has the patient fallen twice in the past year without injury or once in the past year with injury? Yes 08/05/2025 10:54 AM RECLAIMER C onrad, Ursula A, RMA Does the patient report or d o you observe difficulty in gait or balance? No 08/05/2025 10:54 AM RECLAIMER Brandon, Ursula A, RMA * Question Answer Date of Assessment Author Initial Score 0 08/05/2025 10:54 AM RECLAIMER Con rad, Ursula A, RMA Little interest or pleasure in doing things Not at all 08/05/2025 10:54 AM RECLAIMER Brandon, Ursula A, RMA Feeling down, depressed, or hopeless Not at all 08/05/2025 10:54 AM RECLAIMER Brandon, Ursula A, RMA * Question Answer Date of Assessment Author Has the patient fallen twice in the past year without injury or once in the past year with injury? Yes 08/05/2025 10:54 AM RECLAIMER C onrad, Ursula A, RMA Does the patient report or d o you observe difficulty in gait or balance? No 08/05/2025 10:54 AM RECLAIMER Brandon, Ursula A, RMA * Question Answer Date of Assessment Author Initial Score 0 08/05/2025 10:54 AM RECLAIMER Con rad, Ursula A, RMA Little interest or pleasure in doing things Not at all 08/05/2025 10:54 AM RECLAIMER Brandon, Ursula A, RMA Feeling down, depressed, or hopeless Not at all 08/05/2025 10:54 AM RECLAIMER Brandon, Ursula A, RMA * Over the past 2 weeks, how often have you been bothered by any of the following problems? Question Answer Date of Assessment Author Patient Health Questionnaire -2 Score 0 08/05/2025 10:54 AM RECLAIMER Brandon, Ursula A, RMA documented as of this encounter Mental Status * BP Answer Entry Date Author 130/62 08/05/2025 10:47 AM RECLAIMER Brandon, Ursula A, RMA * Temp Answer Entry Date Author 98 08/05/2025 10:47 AM RECLAIMER Brandon, Ursula A, RMA * Pulse Answer Entry Date Author 80 08/05/2025 10:47 AM RECLAIMER Brandon, Ursula A, RMA * SpO2 Answer Entry Date Author 99 08/05/2025 10:47 AM RECLAIMER Brandon, Ursula A, RMA * Question Answer Entry Date Author Has the patient fallen twice in the past year without injury or once in the past year with injury? Yes 08/05/2025 10:54 AM RECLAIMER C onrad, Ursula A, RMA Does the patient report or d o you observe difficulty in gait or balance? No 08/05/2025 10:54 AM RECLAIMER Brandon, Ursula A, RMA * Question Answer Entry Date Author Initial Score 0 08/05/2025 10:54 AM RECLAIMER Con rad, Ursula A, RMA Little interest or pleasure in doing things Not at all 08/05/2025 10:54 AM RECLAIMER Brandon, Ursula A, RMA Feeling down, depressed, or hopeless Not at all 08/05/2025 10:54 AM RECLAIMER Brandon, Ursula A, RMA documented in this encounter Plan of Treatment Upcoming Encounters Date Type Department Care Team (Late st Contact Info) Description 09/02/2025 10:45 AM RECLAIMER Office Visit [facility] [address] [address] Cruz Lombardi MD [address] [place] [address] [phone] documented as of this encounter Visit Diagnoses Not on filedocumented in this encounter Care Teams Dial Mounter Relationship Specialty Start Date End Date Ashlee Doyle MD [address] [place] [address] PCP - General Internal Medicine 07/22/25 Cruz Lombardi MD [address] [place] [phone] Consulting Physician Oncology 07/24/25 documented as of this encounter
--- OUTSIDE RECORDS SUMMARY | 2025-08-21 06:24 | XMS_ITS | Encounter Summary ---
Author Organization [facility] Address [address] [place] [address] Care Team Providers Care Production Control Analyst Name Role Phone Ashlee Doyle MD Primary Care Provider [phone] Randi Barney MD Unavailable Miscellaneous, Not In File Unavailable Unava ilable Sheryl Latham MD Unavailable Jonh Junior MD Primary Care Provide r Ashlee Doyle MD Primary Care Provider [phone] Jonh Junoir MD Unavailable Encounter Details Date Type Department Care Team (Late st Contact Info) Description 03/31/[address] 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 Gender Identity Not on file Sexual [...] documented as of this encounter Care Teams Production Control Analyst Relationship Specialty Start Date End Date Ashlee Doyle MD [address] [place] [address] PCP - General 02/09/18 08/24/23 Jonh Junior MD PCP - General Cardiology 08/25/23 09/04/23 Ashlee Doyle MD [address] [place] [address] PCP - General Internal Medicine 09/05/23 Randi Barney MD [address] [place] [address] Referring Physician Cardiology 03/12/21 08/24/23 Miscellaneous, Not In File 03/24/21 Sheryl Latham MD Medical Oncologist/Cloth Washer Back Tender Medical Oncology 05/12/21 Jonh Junior MD Referring Physician Cardiology 09/05/23 documented as of this encounter
--- OUTSIDE RECORDS SUMMARY | 2025-08-21 06:24 | XMS_ITS | Encounter Summary ---
Author Organization [facility] Address [address] [place] [address] Care Team Providers Care Filler Picker Name Role Phone Olivia Foss MD Primary Care Provider Unavailable Encounter Details Date Type Department Care Team (Late st Contact Info) Description 02/19/2020 Lab Requisition [facility] [address] [facility], [place] [address] Yumiko Dykes MD [address] [facility] 3 [place] [address] Social History Tobacco Use Types Packs/Day Years Used Date Smoking Tobacco: Never Assessed Comments Unknown Sex and Gender Information Value Date Recorded Sex Assigned at Not on file Legal Sex Female 6:20 AM 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 Gender Identity Not on file Sexual Orientation Not on file documented as of this encounter Plan of Treatment Not on file documented as of this encounter Procedures Procedure Name Priority Date/Time Associated Diagnosis Comments DERMATOPATHOLOGY Routine 02/18/2020 12:0 0 AM CDT documented in this encounter Results * DERMATOPATHOLOGY (02/18/2020 12:00 AM CDT) Case Report Dermatopathology Report Case: [id number] Authorizing Provider: Yumiko Dykes MD Collected: 02/18/2020 12:00 AM Ordering Location: [facility] Received: 02/19/2020 08:29 AM Pathologist: [...] specimen consists of a shave biopsy measuring [id number], bisected. Jar 0+. 0 2:31 PM CDT [...] purposes. Billing Codes Specimen Charges Stain Charges 11432 1 0 2:31 PM CDT DERMATOPATHOLOGY LABORATORY Embedded Images 0 2:31 PM CDT DERMATOPATHOLOGY LABORATORY Pathology/Cytolog y TISSUE SPECIMEN FROM SKIN / Unknown 02/18/2020 02/19/2020 8:29 AM CDT us Yumiko Dykes MD LAB - PATHOLOGY/CYTOLOGY ORD ERABLES Final Result DERMATOPATHOLOGY LABORATORY [facility] - Department of Dermatology Vice President Of Human Resources Center/[address] [address], [facility] [phone] documented in this encounter Visit Diagnoses Not on filedocumented in this encounter Care Teams Filler Picker Relationship Specialty Start Date End Date Olivia Foss MD PCP - General 02/05/19 documented as of this encounter
--- OUTSIDE RECORDS SUMMARY | 2025-08-21 06:24 | XMS_ITS ---
Author Organization [facility] Address [address] [place] [address] Care Team Providers Care Secondary School Special Ed Teacher Name Role Phone Miscellaneous, Not In File Unavailable Unava ilable Sheryl Latham MD Unavailable Ashlee Doyle MD Primary Care Provider [phone] Jonh Junior MD Unavailable Active Problems Problem [...] ready for that. 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 Asked patient to bring notes or forward prior to next visit. Follows with Dr. Izaguirre at [facility]. Will have second opinion with [facility] next available per patient request. [...] PM CDT): -chronic since 2020, following with tricot knitting machine operator and Endocrinology,not on home meds, encouraging fluid [...] exertion 06/06/2018 Coronary artery disease invo lving [place] coronary artery of [place] heart without angina pectoris 06/06/2018 Assessment & [...]
--- OUTSIDE RECORDS SUMMARY | 2025-08-21 06:24 | XMS_ITS | Encounter Summary ---
Author Organization [facility] Address [address] [facility] [place] [address] Care Team Providers Care Cloth Shearing Supervisor Name Role Phone Olivia Foss MD Primary Care Provider Unavailable Encounter Details Date Type Department Care Team (Late st Contact Info) Description 04/09/2019 Lab Requisition [facility] Care [facility] Lab [address] [facility], [place] [address] Olivia Fernandez MD [address] [facility] 3 [place] [address] Social History Tobacco Use Types Packs/Day Years Used Date Smoking Tobacco: Never Assessed Comments Unknown Sex and Gender Information Value Date Recorded Sex Assigned at Not on file 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 Previous Bx: [id number]. 3:47 PM CDT DERMATOPATHOLOGY LABORATORY Gross Description Specimen A: Received is one formalin filled container labeled with the patient's name and designated left fa. The specimen consists of a non-oriented ellipse of skin measuring [id number]. The epidermal surface is unremarkable. The margin [...] purposes. Billing Codes Specimen Charges Stain Charges 17007 1 3:47 PM CDT DERMATOPATHOLOGY LABORATORY Embedded Images 3:47 PM CDT DERMATOPATHOLOGY LABORATORY Pathology/Cytolog y TISSUE SPECIMEN FROM SKIN / Unknown 04/06/2019 04/09/2019 6:40 AM CDT Olivia Fernandez MD LAB - PATHOLOGY/CYTOLOGY OR DERABLES Final Result DERMATOPATHOLOGY LABORATORY [facility] - Department of Dermatology [address] [facility], 5th [place] [address], [facility] [phone] documented in this encounter Visit Diagnoses Not on filedocumented in this encounter Care Teams Cloth Shearing Supervisor Relationship Specialty Start Date End Date Olivia Foss MD PCP - General 02/05/19 documented as of this encounter
--- OUTSIDE RECORDS SUMMARY | 2025-08-21 06:24 | XMS_ITS | Clinical Summary ---
Author Organization [facility] [employer] [facility] Address [address] [facility] [address] Care Team Providers Care Expansion Envelope Maker Hand Name Role Phone Olivia Foss MD Primary Care Provider Unavailable Source Comments [facility] [employer] [facility],non-owned Affiliates and Associated Physician Practices is amultiple site organization consisting of ambulatory clinics and hospital sitesin [place], [place], [place] and [place]. This disclosure is being madepursuant to the Care Everywhere program and may not contain all information available regarding this patient. 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
--- OUTSIDE RECORDS SUMMARY | 2025-08-21 06:24 | XMS_ITS | Clinical Summary ---
Author Organization [facility] Address [address] [place] [address] Care Team Providers Care Sanitary Engineering Teacher Name Role Phone Ashlee Doyle MD Primary Care Provider [phone] Melvin Pedraza MD Unavailable Allergies Active Allergy [...] exertion 06/06/2018 Coronary artery disease invo lving [place] coronary artery of [place] heart without angina pectoris 06/06/2018 Carotid bruit [...] Td 06/19/2016 Tdap (Generic) 11/10/2012 Zoster (Zostavax) 52805 Unt/0.65Ml 03/29,09/21/2018,09/19/2013,2009 Family History Medical History Relation [...] on file Legal Sex Female 1:30 PM 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 Gender Identity Not on file Sexual Orientation Not on file Last Filed Vital Signs Vital Sign Reading Time Taken Comments Blood Pressure 140/62 08/21/2020 1:18 PM 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 Pulse 97 08/21/2020 1:18 PM 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 Temperature - - Respiratory Rate - - Oxygen Saturation - - Inhaled Oxygen Concentration - - Weight 67.5 kg (148 lb 12.8 oz) 08/21/2020 1:18 PM 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 Height 165.1 cm (5' 5) 08/21/2020 1:18 PM 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 Body Mass Index 24.76 08/21/2020 1:18 PM 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 Plan of Treatment Health Maintenance Due Date [...] file Type:Indemnity Address: ATTN CLAIMS [address] MEDICARE Care Teams Sanitary Engineering Teacher Relationship Specialty Start Date End Date Ashlee Doyle MD PCP - General INTERNAL MEDICINE 02/18/20 Melvin Pedraza MD [address] [address] Referring Physician VASCULAR SURGERY 02/18/20
--- OUTSIDE RECORDS SUMMARY | 2025-08-21 06:24 | XMS_ITS | Clinical Summary ---
Author Organization [facility] Address [address] [place] [address] Care Team Providers Care Security Flex Officer Name Role Phone Miscellaneous, Not In File Unavailable Unava ilable Sheryl Latham MD Unavailable [phone] Ashlee Doyle MD Primary Care Provider [phone] Jonh Junior MD Unavailable Allergies Active Allergy [...] ready for that. -home spironolactone, -02/21 BNP >75294, ordered Cardio c/s, TTE, Trop, EKG, tele [...] stable from prior notes from [facility] - Fundus exam and photos appear stable [...] should continue to monitor with her general dentist Assessment & Plan (04/01/2022 3:54 PM CDT): [...] (ERM) peel right eye (OD) 2007 at [facility]. Asked patient to bring notes or forward prior to next visit. Follows with Dr. Izaguirre at [facility]. 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 and Endocrinology,not on home meds, encouraging fluid [...] exertion 06/06/2018 Coronary artery disease invo lving [place] coronary artery of [place] heart without angina pectoris 06/06/2018 Assessment & [...] Department Care Team Description 06/30/2025 Results Follow-Up [facility] Medicine Cardiology [address] [facility] Floor 1, [address] [place] [address] Jonh Junior MD Pulmonary Function Test - 06/21/2025 Telephone [facility] Medicine Cardiology [address] [facility] 8th [place] [address] [place] [address] Jonh Junior MD 06/20/2025 11:45 AM CDT Office Visit [facility] Medicine Oncology [address] [facility] Floor 6 [place] [address] Yulia Nolasco NP 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) 06/20/2025 11:15 AM CDT Lab [facility] - Lab Collection [address] [facility] Floor 6 [place] [address] 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) 06/20/2025 10:45 AM CDT Lab [facility] Medicine Oncology Lab [address] [facility] Floor 6 [place] [address] 06/20/2025 Telephone [facility] Medicine Cardiology [address] [facility] 8th [place] [address] [place] [address] Aliza Brown 06/19/2025 Telephone [facility] Medicine Cardiology [address] [facility] 8th [place] [address] [place] [address] Jonh Junior MD 06/17/2025 11:45 AM CDT Office Visit [facility] Medicine Cardiology [address] [facility] Floor 1, [address] [place] [address] Jonh Junior MD 06/17/2025 9:46 AM CDT - 06/17/2025 11:59 PM CDT Hospital Encounter [facility] Medicine PFT Lab [address] [facility] Floor 1, [address] [place] [address] Ischemic cardiomyopathy; Essential hypertension; On amiodarone therapy Discharge Disposition: Discharge to home or self care from Last 3 Months Immunizations Immunization Administration Dates Next Due COVID-19 mRNA ([employer]) 0.3 m L (30 mcg) vaccine (12 [...] on file Legal Sex Female 2:10 AM 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20 - 0.80 K/cumm BENJAMIN SETH Comment:Testing performed by : [facility], [address] [place] [phone] Eosinophil abs 0.13 0.00 - 0.50 K/cumm CERNER BJ Comment:Testing performed by : [facility], [address] [place] [phone] Basophil abs 0.05 0.00 - 0.10 K/cumm CERNER [facility]JH Comment:Testing performed by : [facility], [address] [place] [phone] Neutrophil pct 55.6 % CERNER BJ Comment: Interpretive Data Percent cell count reference ranges are not reported, since discordance with absolute values may lead to misinterpretation of CBC data. Current Interpretive Data was last revised on 2017. Testing performed by: [facility], [address] [place], [place] [id number] Lymphocyte pct 27.6 % CERNER BJ Comment: Interpretive Data Percent cell count reference ranges are not reported, since discordance with absolute values may lead to misinterpretation of CBC data. Current Interpretive Data was last revised on 2017. Testing performed by: [facility], [address] [place], [place] [id number] Monocyte pct 14.2 % CERNER BJ Comment: Interpretive Data Percent cell count reference ranges are not reported, since discordance with absolute values may lead to misinterpretation of CBC data. Current Interpretive Data was last revised on 2017. Testing performed by: [facility], [address] [place] [phone] Eosinophil pct 1.8 % CERNER BJ Comment: Interpretive Data Percent cell count reference ranges are not reported, since discordance with absolute values may lead to misinterpretation of CBC data. Current Interpretive Data was last revised on 2017. Testing performed by: [facility], [address] [place] [phone] Basophil pct 0.7 % CERNER BJ Comment: Interpretive Data Percent cell count reference ranges are not reported, since discordance with absolute values may lead to misinterpretation of CBC data. Current Interpretive Data was last revised on 2017. Testing performed by: [facility], [address] [place] [phone] Blood 06/20/2025 11:2 9 AM CDT 06/20/2025 11:37 AM CDT us Sheryl Latham MD LAB BLOOD ORDERABLES Final Re sult BENJAMIN SETH [facility] [place] [address] * (ABNORMAL) CBC with auto differential (06/20/2025 11:29 AM CDT) WBC 6.81 3.80 - 9.90 K/cumm Comment:Testing performed by : [facility], [address] [place] [address] Hgb 8.4(L) 11.9 - 15.5 g/dL BENJAMIN SETH Comment:Testing performed by : [facility], [address] [place] [address] Hct 26.3(L) 35.6 - 45.5 % BENJAMIN SETH Comment:Testing performed by : [facility], [address] [place] [address] Plt 180 150 - 400 K/cumm BENJAMIN SETH Comment:Testing performed by : [facility], [address] [place] [address] MPV 6.9 6.8 - 10.4 fL BENJAMIN SETH Comment:Testing performed by : [facility], [address] [place] [address] RBC 3.22(L) 3.90 - 5.20 M/cumm BENJAMIN BJ Comment:Testing performed by : [facility], [address] [place] [address] MCV 81.5 81.3 - 96.4 fL CERAKHIL SETH Comment:Testing performed by : [facility], [address] [place] [address] MCH 25.9(L) 27.1 - 33.3 pg CERAKHIL SETH Comment:Testing performed by : [facility], [address] [place], [place] [phone] MCHC 31.8(L) 32.3 - 35.7 g/dL BENJAMIN [facility] Comment:Testing performed by : [facility], [address] [place], [place] [phone] RDW CV 15.3(H) 11.1 - 14.9 % BENJAMIN [facility] Comment:Testing performed by : [facility], [address] [place], [place] [phone] NRBC abs 0.00 0.00 - 0.01 K/cumm BENJAMNI [facility] Comment:Testing performed by : [facility], [address] [place], [place] [phone] Blood 06/20/2025 11:2 9 AM CDT 06/20/2025 11:37 AM CDT Sheryl Latham MD LAB BLOOD ORDERABLES Final Re sult Performing Organization Address City/[facility]/ZIP Co de Phone Number [facility] Department [place] [address] * Lactate dehydrogenase (LD) (06/20/2025 11:29 AM CDT) [facility] Lactate dehydrogenase (LDH) 221 100 - 250 Units/L Blood 06/20/2025 11:2 9 AM CDT 06/20/2025 11:37 AM CDT Sheryl Latham MD LAB BLOOD ORDERABLES Final Re sult [facility] Department [place] [address] * (ABNORMAL) Comprehensive metabolic panel (06/20/2025 11:29 AM CDT) [facility] Sodium 136 135 - 145 mmol/L Potassium, pl 4.8 3.3 - 4.9 mmol/L [facility] Chloride 102 97 - 110 mmol/L [facility] CO2 25 22 - 32 mmol/L [facility] Anion gap 9 2 - 15 mmol/L [facility] BUN 23 6 - 25 mg/dL [facility] Creatinine 1.16(H) 0.60 - 1.10 mg/dL [facility] Glucose 86 70 - 199 mg/dL [facility] Comment: Interpretive Data Fasting glucose [...] 2022. Calcium 9.1 8.5 - 10.3 mg/dL [facility] Bilirubin, total 0.2 0.1 - 1.2 mg/dL [facility] Protein, pl 6.3(L) 6.5 - 8.5 g/dL [facility] Albumin 4.1 3.5 - 5.0 g/dL [facility] Alk phos 77 40 - 130 Units/L [facility] ALT 11 7 - 45 Units/L [facility] AST 20 10 - 45 Units/L [facility] Blood 06/20/2025 11:2 9 AM CDT 06/20/2025 11:37 AM CDT us Sheryl Latham MD LAB BLOOD ORDERABLES Final Re sult [facility] Department [place] [address] * Pulmonary Function Test - (06/17/2025 10:31 AM CDT) FVC PRE 2.11 L [facility] FVC %PRE PRED 88 % [facility] FEV1 PRE 1.38 L [facility] FEV1 %PRE PRED 77 % [facility] FEV1/FVC PRE 65.3 % [facility] FRC PL PRE 2.72 L [facility] FRC PL %PRE PRED 94 % [facility] RV PRE 1.78 L [facility] RV %PRE PRED 70 % [facility] TLC PRE 3.91 L [facility] TLC %PRE PRED 78 % [facility] DLCO PRE 11.2 ml/min/mmH g [facility] DLCO %PRE PRED 63 % [facility] Anatomical Region Laterality Modality PFT 06/17/2025 9:53 AM CDT Narrative 06/20/2025 6:37 PM CDT intermediate frame tender amiodarone therapy, pft's for toxicity surveillance PFT performed at:->[facility] PUL PFT [id number] Procedure:->Standard Procedure:->Spirometry with [...] and %HbO2 is age dependent. However, the [facility] Pulmonary Function Laboratory defines hypoxemia as a PaO2 <56 mm Hg or a %HbO2 <89%. Starting on September of 2024 the [facility] Pulmonary Function Laboratory utilizes race neutral GLI Global normative equations. Jonh Junior MD PFT ORDERABLES Final Result * BONE MINERAL DENSITY (04/05/2017) Anatomical Region Laterality Modality Radiographic Christi ging Narrative 04/05/2017 Ordered by an unspecified provider. Historical Provider IMG DXA PROCEDURES Final Result from Last 3 Months or Most Recently Relevant to Health Maintenance Insurance [facility]ICARE [facility] MEDICARE [facility] FEDERAL [facility] ACCESS CHOICE ANTHEM ACCESS MEDICARE [facility] Address: [address] [address] [place] [address] [facility] FEDERAL Advance Directives For more information, please contact: [phone] * Full Code (Latest Code Status on [...] 4:54 AM 03/24/2021 6:20 PM Care Teams Security Flex Officer Relationship Specialty Start Date End Date Ashlee Doyle MD [address] [facility] [address] [place] [address] PCP - General Internal Medicine 09/05/23 Miscellaneous, Not In File 03/24/21 Sheryl Latham MD Medical Oncologist/Manager Physical Medical Oncology 05/12/21 Jonh Junior MD [address] [place] [id number] Referring Physician Cardiology 09/05/23
--- OUTSIDE RECORDS SUMMARY | 2025-08-21 06:24 | XMS_ITS | Encounter Summary ---
Author Organization [facility] Address [address] [place] [address] Care Team Providers Care Gravity Prospecting Operator Helper Name Role Phone Olivia Foss MD Primary Care Provider Unavailable Encounter Details Date Type Department Care Team (Late st Contact Info) Description 02/07/2019 [facility] [address] [facility], [place] [address] Olivia Fernandez MD [address] [facility] [address] [place] [address] Social History Tobacco Use Types Packs/Day Years Used Date Smoking Tobacco: Never Assessed Comments Unknown Sex and Gender Information Value Date Recorded Sex Assigned at Not on file 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 Jar 0. Specimen B: Received is one formalin filled container labeled with the patient's name and designated left FA. The specimen consists of a shave (2 pieces) measuring [id number] & [id number]. Jar 0. 10:54 AM T DERMATOPATHOLOGY LABORATORY [...] characteristic determined by the Dermatopathology Laboratory at [facility], directed by Dr. Kwame Agrawal. These tests need not be, and therefore are not, approved by the [place] Food and Drug Administration. The tests are used for clinical purposes. Billing Codes Specimen Charges Stain Charges 23280 68257 1 1 9 10:54 AM T DERMATOPATHOLOGY LABORATORY Embedded Images 10:54 AM T DERMATOPATHOLOGY LABORATORY Pathology/Cytology TISSUE SPECIMEN FROM SKIN / Unknown 02/05/2019 02/07/2019 8:16 AM CDT Miscellaneous samples (specimen) TISSUE SPECIMEN FROM SKIN / Unknown 02/05/2019 02/07/2019 8:16 AM CDT Olivia Fernandez MD LAB - PATHOLOGY/CYTOLOGY OR DERABLES Final Result DERMATOPATHOLOGY LABORATORY [facility] - Department of Dermatology [address] [place] [address], 5th [place] [address], [facility] [phone] documented in this encounter Visit Diagnoses Not on filedocumented in this encounter Care Teams Gravity Prospecting Operator Helper Relationship Specialty Start Date End Date Olivia Foss MD PCP - General 02/05/19 documented as of this encounter
--- OUTSIDE RECORDS SUMMARY | 2025-08-21 06:24 | XMS_ITS | Encounter Summary ---
Author Organization [facility] Address [address] [place] [address] Phone Care Team Providers Care Artist Manager Name Role Phone Miscellaneous, Not In File Unavailable Unava ilable Sheryl Latham MD Unavailable [phone] Ashlee Doyle MD Primary Care Provider [phone]- [phone] Jonh Junior MD Unavailable [phone] Encounter Details Date Type Department Care Team (Late st Contact Info) Description 06/30/2025 Results Follow-Up [facility] Medicine Cardiology [address] [facility] [address], [address] [place] [address] Jonh Junior MD [address] [place] [address] Pulmonary Function Test - Social [...] on file Legal Sex Female 2:10 AM CONTROL PANEL TESTER Gender Identity Not on file Sexual Orientation Not on file Occupation Industry Job Start Date Job End Date retired Not on file Not on file Not on file documented as of this encounter Plan of Treatment Not on file documented as of this encounter Visit Diagnoses Not on filedocumented in this encounter Care Teams Artist Manager Relationship Specialty Start Date End Date Ashlee Doyle MD [address] [place] [address] PCP - General Internal Medicine 09/05/23 Miscellaneous, Not In File 03/24/21 Sheryl Latham MD Medical Oncologist/Instrument Person Medical Oncology 05/12/21 Jonh Junior MD [address] [place] [address] Referring Physician Cardiology 09/05/23 documented as of this encounter
--- OUTSIDE RECORDS SUMMARY | 2025-08-21 06:24 | XMS_ITS | Clinical Summary ---
Author Organization [facility] Address [address] [place] [address] Phone Care Team Providers Care Installer Helper Name Role Phone Ashlee Doyle MD Primary Care Provider Cruz Lombardi MD Unavailable Allergies Active Allergy Reactions Criticality [...] Department Care Team Description 08/19/2025 12:15 PM ROGUER Lab [facility] [address] [address] Iron deficiency anemia, unspecified iron deficiency anemia type 08/19/2025 10:45 AM ROGUER Office Visit [facility] [address] [address] Cruz Lombardi MD Iron deficiency anemia, unspecified iron deficiency anemia type (Primary Dx) 08/19/2025 Travel 08/05/2025 11:15 AM ROGUER Lab [facility] [address] [address] [facility], [facility] Anemia due to unknown mechanism 08/05/2025 10:30 AM ROGUER Office Visit [facility] [address] [address] Cruz Lombardi MD Anemia due to unknown mechanism (Primary Dx) 08/05/2025 Results Follow-Up [facility] [address] [address] Cruz Lombardi MD IRON W/ IRON BINDING [...] Comments Blood Pressure 114/66 08/19/2025 11:12 AM ROGUER Pulse 68 08/19/2025 11:12 AM ROGUER Temperature 36.3 C (97.4 F) 08/19/2025 11:12 AM ROGUER Respiratory Rate 16 08/19/2025 11:12 AM ROGUER Oxygen Saturation 94% 08/19/2025 11:12 AM ROGUER Inhaled Oxygen Concentration - - Weight 53.5 kg (118 lb) 08/19/2025 11:12 AM ROGUER Height 166.4 cm (5' 5.5) 08/19/2025 11:12 AM CS T Body Mass Index 19.34 08/19/2025 11:12 AM ROGUER Plan of Treatment Upcoming Encounters Date Type Department Care Team (Late st Contact Info) Description 09/02/2025 10:45 AM ROGUER Office Visit [facility] [address] [address] Cruz Lombardi MD [address] [place] [address] Health Maintenance Due Date Last [...] AUTO DIFF OH Routine 08/19/2025 11:57 AM ROGUER CBC WITH AUTO DIFF OH Routine 08/05/2025 11:20 AM ROGUER CMP (COMPREHENSIVE METABOLIC PANEL) Routine 08/05/2025 11:20 AM ROGUER Anemia due to unknown mechanism LACTATE DEHYDROGENASE (LD) Routine 08/05/2025 11:20 AM ROGUER Anemia due to unknown mechanism FOLIC ACID (FOLATE) Routine 08/05/2025 1 1:20 AM ROGUER Anemia due to unknown mechanism FERRITIN Routine 08/05/2025 11:20 AM ROGUER Anemia due to unknown mechanism RETICULOCYTE COUNT (RETIC) Routine 08/05/2025 11:20 AM ROGUER Anemia due to unknown mechanism IRON W/ IRON BINDING CAPACITY OH Routine 08/05/2025 11:20 AM ROGUER Anemia due to unknown mechanism VITAMIN B12 Routine 08/05/2025 11:20 AM ROGUER Anemia due to unknown mechanism HAPTOGLOBIN Routine 08/05/2025 11:20 AM ROGUER Anemia due to unknown mechanism ELECTROPHORESIS W/ TOTAL PROTEIN SERUM Routine 08/05/2025 11:20 AM ROGUER Anemia due to unknown mechanism from Last 3 Months Results * (ABNORMAL) CBC WITH AUTO DIFF [place] (08/19/2025 11:57 AM ROGUER) Only the most recent of2 resultswithin the time period is included. WBC 7.2 4.0 - 10.0 10*3/uL [facility] HGB 8.6(L) 11.2 - 15.7 g/dL [facility] HCT 28.6(L) 34.1 - 44.9 % [facility] PLT 189 163 - 369 10*3/uL CANCER STRETCHER OPERATOR [facility] MPV 9.3(L) 9.4 - 12.4 fL CANCER STRETCHER OPERATOR [facility] RBC 3.39(L) 3.93 - 5.22 10*6/uL CANCER STRETCHER OPERATOR [facility] MCV 84 79 - 95 fL CANCER STRETCHER OPERATOR [facility] MCH 25.4(L) 25.6 - 32.2 pg CANCER STRETCHER OPERATOR [facility] MCHC 30.1(L) 32.2 - 36.5 g/dL CANCER STRETCHER OPERATOR [facility] RDW 19.7(H) 11.6 - 14.4 % CANCER STRETCHER OPERATOR [facility] Neutrophils % 57.3 36.0 - 66.0 % CANCER STRETCHER OPERATOR [facility] Lymphocytes % 28.9 19.0 - 40.0 % CANCER STRETCHER OPERATOR [facility] Monocytes % 11.0 4.1 - 12.1 % CANCER STRETCHER OPERATOR [facility] Eosinophils % 1.3 0.0 - 3.5 % CANCER STRETCHER OPERATOR [facility] Basophils % 1.1(H) 0.0 - 1.0 % CANCER STRETCHER OPERATOR [facility] Absolute Neutrophils 4.1 1.4 - 6.6 10*3/uL [facility] Absolute Lymphocytes 2.1 0.8 - 4.0 10*3/uL [facility] Absolute Monocytes 0.8 0.2 - 1.2 10*3/uL [facility] Absolute Eosinophils 0.1 0.0 - 0.4 10*3/uL [facility] Absolute Basophils 0.1 0.0 - 0.1 10*3/uL [facility] 08/19/2025 11:5 7 AM ROGUER us Cruz Lombardi MD LAB SEND OUTS Final Result CANCER STRETCHER OPERATOR [facility] [place] [address], * (ABNORMAL) IRON W/ IRON BINDING CAPACITY [place] (08/05/2025 11:20 AM ROGUER) IRON 20(L) 50 - 212 ug/dL CANCER STRETCHER OPERATOR [facility] UIBC 457(H) 155 - 355 ug/dL CANCER STRETCHER OPERATOR [facility] TIBC 477 261 - 478 ug/dl CANCER STRETCHER OPERATOR [facility] % Saturation 4(L) 20 - 50 % CANCER STRETCHER OPERATOR [facility] 08/05/2025 11:2 0 AM ROGUER Narrative [facility] - 08/05/2025 12:29 PM ROGUER Release to patient->Immediate us Cruz Lombardi MD LAB SEND OUTS Final Result Performing Organization Address [facility] Co de Phone Number CANCER STRETCHER OPERATOR [facility] [place] [address], * VITAMIN B12 (08/05/2025 11:20 AM ROGUER) Vitamin B12 209 180 - 914 pg/mL CANCER STRETCHER OPERATOR [facility] Blood 08/05/2025 11:2 0 AM ROGUER Narrative [facility] 08/06/2025 3:15 PM ROGUER Release to patient->Immediate Cruz Lombardi MD CHEMISTRY ORDERABLES Final R esult Performing Organization Address [facility] de Phone Number [facility] Cancer Care [address] [place] [address], [place] [phone] * (ABNORMAL) RETICULOCYTE COUNT (RETIC) (08/05/2025 11:20 AM ROGUER) Reticulocyte count 1.71(H) 0.50 - 1.70 % [facility] RET-He 23.80(L) 28.20 - 36.60 pg CANCER STRETCHER OPERATOR [facility] Comment: RET-He is a direct assessment of incorporation of iron into erythrocyte hemoglobin. It provides an indirect measure of the iron available for new erythropoiesis over past 2-4 days. Blood 08/05/2025 11:2 0 AM ROGUER [facility] - 08/05/2025 11:38 AM ROGUER Release to patient->Immediate us Cruz Lombardi MD HEMATOLOGY ORDERABLES Final Result Performing Organization Address [facility] Co de Phone Number CANCER STRETCHER OPERATOR [facility] [address] [place] [address], [place] [phone] * LACTATE DEHYDROGENASE (LD) (08/05/2025 11:20 AM ROGUER) LDH 195 140 - 271 U/L CANCER STRETCHER OPERATOR [facility] Blood 08/05/2025 11:2 0 AM ROGUER Narrative CANCER STRETCHER OPERATOR [facility] - 08/05/2025 12:13 PM ROGUER Release to patient->Immediate us Cruz Lombardi MD CHEMISTRY ORDERABLES Final R esult Performing Organization Address [facility] de Phone Number CANCER STRETCHER OPERATOR [facility] [place] [address], [place] [phone] * HAPTOGLOBIN (08/05/2025 11:20 AM ROGUER) HAPTO 176 44 - 215 mg/dL [facility] Blood 08/05/2025 11:2 0 AM ROGUER [facility] - 08/06/2025 3:15 PM ROGUER Release to patient->Immediate us Cruz Lombardi MD CHEMISTRY ORDERABLES Final R esult Performing Organization Address [facility] Co de Phone Number CANCER STRETCHER OPERATOR [facility] [place] [address], [place] [phone] * FOLIC ACID (FOLATE) (08/05/2025 11:20 AM ROGUER) Folate >20.00 >=5.90 ng/mL CANCER STRETCHER OPERATOR [facility] Blood 08/05/2025 11:2 0 AM ROGUER Narrative CANCER STRETCHER OPERATOR [facility] - 08/06/2025 3:15 PM ROGUER Release to patient->Immediate IS THE PATIENT REQUIRED TO BE FASTING FOR 12 HOURS?->No us Cruz Lombardi MD CHEMISTRY ORDERABLES Final R esult Performing Organization Address City/[facility]/ZIP Co de Phone Number CANCER STRETCHER OPERATOR [facility] [address] [address], [place] [phone] * FERRITIN (08/05/2025 11:20 AM ROGUER) Pathologist [facility] Ferritin 17 11 - 307 ng/mL CANCER STRETCHER OPERATOR [facility] Blood 08/05/2025 11:2 0 AM ROGUER Narrative CANCER STRETCHER OPERATOR [facility] - 08/06/2025 3:15 PM ROGUER Release to patient->Immediate us Cruz Lombardi MD CHEMISTRY ORDERABLES Final R esult Performing Organization Address [facility] Co de Phone Number CANCER STRETCHER OPERATOR [facility] [address] [address], [place] [phone] * (ABNORMAL) ELECTROPHORESIS W/ TOTAL PROTEIN SERUM (08/05/2025 11:20 AM ROGUER) Pathologist [facility] PROTEIN, TOTAL, SERUM 5.8(L) 6.0 - 8.5 G/DL CANCER STRETCHER OPERATOR [facility] ALBUMIN 3.4 2.9 - 4.4 G/DL CANCER STRETCHER OPERATOR [facility] [id number] 0.3 0.0 - 0.4 G/DL CANCER STRETCHER OPERATOR [facility] [id number] 0.7 0.4 - 1.0 G/DL CANCER STRETCHER OPERATOR [facility] BETA GLOBULIN 0.9 0.7 - 1.3 G/DL CANCER STRETCHER OPERATOR [facility] GAMMA GLOBULIN 0.5 0.4 - 1.8 G/DL CANCER STRETCHER OPERATOR [facility] M-SPIKE NOT OBSERVED NOT OBSERVED G/DL CANCER STRETCHER OPERATOR [facility] GLOBULIN, TOTAL 2.4 2.2 - 3.9 G/DL CANCER STRETCHER OPERATOR [facility] A/G RATIO 1.4 0.7 - 1.7 [facility] PLEASE NOTE: COMMENT CANCER STRETCHER OPERATOR [facility] [place] Comment: PROTEIN ELECTROPHORESIS SCAN WILL FOLLOW VIA COMPUTER, MAIL, OR AGILE COACH DELIVERY. PDF . [facility] Blood 08/05/2025 11:2 0 AM ROGUER Narrative CANCER STRETCHER OPERATOR [facility] - 08/06/2025 3:09 PM ROGUER TESTING PERFORMED AT: [] LAB[address], [place], [address], PHONE: [phone], CHIEF WARDEN: VANESSA MACHADO, PHD Release to patient->Immediate us Cruz Lombardi MD CHEMISTRY ORDERABLES Final R esult CANCER STRETCHER OPERATOR [facility] [place] [address], * (ABNORMAL) CMP (COMPREHENSIVE METABOLIC PANEL) (08/05/2025 11:20 AM ROGUER) Glucose 98 70 - 105 mg/dL [facility] Blood Urea Nitrogen 13 7 - 25 mg/dL [facility] Creatinine 1.1 0.6 - 1.2 mg/dL [facility] Sodium 136 136 - 145 mEq/L [facility] Potassium 4.2 3.5 - 5.1 mEq/L [facility] Chloride 102 98 - 107 mEq/L [facility] Bicarbonate 25 21 - 31 mEq/L [facility] Total Bilirubin 0.4 0.3 - 1.0 mg/dL [facility] STRETCHER OPERATOR [facility] Alk. Phosphatase 79 34 - 104 U/L [facility] Aspartate Aminotransferase 16 13 - 39 U/L [facility] Alanine Aminotransferase 9 7 - 52 U/L [facility] Total Protein 5.9(L) 6.4 - 8.9 g/dL [facility] STRETCHER OPERATOR [facility] Albumin 4.1 3.5 - 5.7 g/dL [facility] Calcium 9.0 8.6 - 10.3 mg/dL [facility] Anion Gap 13.2 7.0 - 15.0 mEq/L CANCER STRETCHER OPERATOR [facility] Globulin 1.8(L) 2.0 - 3.5 g/dL CANCER STRETCHER OPERATOR [facility] EGFR 48(L) >60 ml/min/1. 73m2 CANCER STRETCHER OPERATOR [facility] Comment: This eGFR is calculated using 2020 CKD-EPI Creatinine equation without race modifier based on the NKF-ASN task force recommendations Equation: sKXP=556*min(SCr/k,1)a*max(SCr/k,1)-1.200*0.9938Age*1.012 (if female), where SCr is serum creatinine, k is 0.7 for females and 0.9 for males, and a is -0.241 for females and -0.302 for males Blood 08/05/2025 11:2 0 AM ROGUER Narrative CANCER STRETCHER OPERATOR [facility] - 08/05/2025 12:13 PM ROGUER Release to patient->Immediate IS THE PATIENT REQUIRED TO BE FASTING FOR 8 HOURS?->No us Cruz Lombardi MD CHEMISTRY ORDERABLES Final R esult CANCER STRETCHER OPERATOR [facility] [place] [place] [address], from Last 3 Months Insurance MEDICARE [facility] Care Teams Installer Helper Relationship Specialty Start Date End Date Ashlee Doyle MD [address] [place] [id number] PCP - General Internal Medicine 07/22/25 Cruz Lombardi MD [address] [place] [phone] Consulting Physician Oncology 07/24/25
== END 2025-08-14 13:55 | disposition home or self-care (01) | DRG 291 ==
LOC: ANHED 17:27 → ANH2MED 08-13 06:54
PROVIDERS: Physician Assistant; Student in an Organized Health Care Education/Training Program; Admitting Provider Internal Medicine; Emergency Provider Physician Assistant; PCP Internal Medicine; Visit Provider Nurse Practitioner
DX: I11.0 Hypertensive heart disease with heart failure (principal); I50.23 Acute on chronic systolic (congestive) heart failure; E87.1 Hypo-osmolality and hyponatremia; I48.0 Paroxysmal atrial fibrillation; D50.9 Iron deficiency anemia, unspecified; E78.5 Hyperlipidemia, unspecified; K21.9 Gastro-esophageal reflux disease without esophagitis; Z20.822 Contact with and (suspected) exposure to COVID-19; Z79.01 Long term (current) use of anticoagulants; Z86.73 Personal history of transient ischemic attack (TIA), and cerebral infarction without residual deficits; Z85.72 Personal history of non-Hodgkin lymphomas
CPT/HCPCS: 36415; 71046; 80053; 82607; 82728; 82746; 83540; 83550; 83615; 83880; 84466; 84484; 85025; 85027; 85046; 85380; 85610; 85730; 87637; 93005; 93306; 96375; 99285; A9270; G0378; J1756; J2405; J7050

== ENCOUNTER 2025-08-23 18:38 | Inpatient (IN) | payer MEDICARE, BC, SELFPAY ==
--- NOTE | ~2025-08-23 | XR_ITS ---
XR hip RT 2V w AP pelvis 08/23/2025 21:33 Indication: Right hip pain after fall Procedure: 3 views right hip Comparison: 01/15/2025 Findings: There is a right femoral intertrochanteric fracture with varus angulation. There are fractures of the right superior and inferior pubic rami. Impression: 1: Mildly displaced angulated right femoral intertrochanteric fracture. 2: Age-indeterminate fractures right superior and inferior pubic rami. Reviewed, dictated and finalized at location I. RVISOR SEWER MAINTENANCE Impression: 1: Mildly displaced angulated right femoral intertrochanteric fracture. 2: Age-indeterminate fractures right superior and inferior pubic rami.
--- NOTE | ~2025-08-23 | XR_ITS ---
Examination: XR hip RT min 2V Clinical History: post op Comparison: 1 day prior Technique: 2 views right hip Findings/impression: 1. Expected appearance and findings after right femoral short IM nail with proximal and distal interlocking screws, across intertrochanteric fracture, with displaced lesser trochanter. Reviewed, dictated and finalized at location R. [place] SEASONAL SPECIALIST
--- NOTE | ~2025-08-23 | XR_ITS ---
EXAM/PROCEDURE: XR surgery orthopedic HISTORY: R GAMMA NAIL COMPARISON: None available. TECHNIQUE: Intraoperative fluoroscopic spot images right hip Fluoroscopy time: 1 minute 29.3 seconds Dose: 3.7902 Manley per square centimeter IMPRESSION: Right hip internal fixation fluoroscopic images obtained. No radiologist present. See operative/surgical notes for complete evaluation. Reviewed, dictated and finalized at location A. OYEE SERVICES MANAGER IMPRESSION: Right hip internal fixation fluoroscopic images obtained. No radiologist presen t. See operative/surgical notes for complete evaluation.
--- NOTE | ~2025-08-23 | CT_ITS ---
EXAMINATION: CT cervical spine wo con DATE: 08/23/2025 21:50 INDICATION: Status post fall. Neck pain. TECHNIQUE: Computed tomography (CT) of the cervical spine was performed without intravenous contrast. The dose-length product was 96 mGy-cm. COMPARISON: None FINDINGS: There is degenerative disc disease and disc narrowing at C4-5, C5-6, C6-7 and C7-T1. There is degenerative anterolisthesis at C4-5 and C7-T1. There is multilevel uncinate and facet hypertrophy throughout the cervical spine. Odontoid process is normal. There is apical pleural thickening/scarring. Spinous processes are normal. No evidence for perched facet. Odontoid process is normal. Craniovertebral junction is normal. No significant paraspinal soft tissue abnormality. IMPRESSION: 1. No acute abnormality of the cervical spine. Reviewed, dictated and finalized at location I. SHER COLD ROLLING
--- NOTE | ~2025-08-23 | XR_ITS ---
XR chest 1V 08/23/2025 21:33 Indication: Status post fall. Pain. Procedure: AP view of the chest Comparison: Comparison to multiple prior studies sequentially, with oldest reviewed study dated 04/02/2024. Findings: Cardiomegaly with mild interstitial edema. Apical pleural thickening bilaterally. No pleural effusion. No pneumothorax. Impression: 1: Cardiomegaly with mild interstitial edema. Reviewed, dictated and finalized at location I. ERATURE LOGGING OPERATOR Impression: 1: Cardiomegaly with mild interstitial edema.
--- NOTE | ~2025-08-23 | CT_ITS ---
EXAMINATION: CT chst ab maria elena sherwood wo DATE: 08/23/2025 21:51 INDICATION: Status post fall. TECHNIQUE: Computed tomography (CT) of the chest, abdomen, pelvis, thoracic spine and lumbar spine was performed without intravenous contrast. The dose- length product was 388.83 mGy-cm. COMPARISON: None FINDINGS: Small pleural effusions. No thoracic lymphadenopathy. Heart size normal. Dependent atelectasis. No pneumothorax. No endobronchial lesions. The liver, spleen, pancreas, adrenal glands and kidneys are unremarkable. Gallbladder is present. No significant vascular abnormality. No evidence for aneurysm. There is a right femoral intertrochanteric fracture with varus angulation. There are fractures of the right superior, inferior pubic rami and pubic symphysis, likely subacute. There is fracture of the right sacral ala. There is severe lumbar spondylosis with grade 1 degenerative spondylolisthesis at L4-5 secondary to facet hypertrophy. There is levoscoliosis. There is mild compression deformity inferior endplate of L4, age indeterminate. IMPRESSION: 1. Multiple fractures: Right femoral intertrochanteric fracture with varus angulation, fractures right superior and inferior pubic rami and pubic symphysis, fracture right sacral ala and possible inferior endplate fracture L4, age indeterminate. 2: Small pleural effusions with dependent atelectasis. Reviewed, dictated and finalized at location I. RACY CONSULTANT IMPRESSION: 1. Multiple fractures: Right femoral intertrochanteric fracture with varus angu lation, fractures right superior and inferior pubic rami and pubic symphysis, f racture right sacral ala and possible inferior endplate fracture L4, age indete rminate. 2: Small pleural effusions with dependent atelectasis.
--- NOTE | ~2025-08-23 | CT_ITS ---
EXAMINATION: CT brain wo con DATE: 08/23/2025 21:49 INDICATION: Status post fall. Head injury. TECHNIQUE: Computed tomography (CT) of the head was performed without intravenous contrast. The dose-length product was 605.33 mGy-cm. COMPARISON: None FINDINGS: There are scattered mild periventricular and subcortical white matter changes, most likely related to small vessel ischemic disease (microangiopathy). Prominent perivascular space left basal ganglia. No acute hemorrhage, infarction, mass or mass effect. Midline sagittal images demonstrate a normal corpus callosum and craniovertebral junction. No depressed skull fractures. Paranasal sinuses and mastoids are pneumatized. IMPRESSION: 1. No acute intracranial abnormality. Reviewed, dictated and finalized at location I. RING MACHINE FEEDER
[2025-08-23 18:46] VITALS: BP 154/73; PULSE 75; PULSE 76; RESP 14; O2SAT 97; O2SAT 98
[2025-08-23 19:01] VITALS: BP 151/58; PULSE 73; RESP 15; O2SAT 96
[2025-08-23 19:15] VITALS: BP 152/60; PULSE 75; RESP 13; O2SAT 99
[2025-08-23 19:30] VITALS: BP 137/70; PULSE 78; RESP 15; O2SAT 97
[2025-08-23 20:13] VITALS: BP 132/71; PULSE 80; RESP 18; O2SAT 96
--- NOTE | 2025-08-23 20:32 | ED.FALL ---
HPI - Fall General Chief Complaint: Fall Stated Complaint: fall, hip pain Time Seen by Provider: 08/23/25 20:21 Source: patient Mode of arrival: ambulatory Limitations: no limitations History of Present Illness HPI Narrative: patient is an 89-year-old female presents to the emergency department complaining of a fall. Patient states prior to arrival she was coming down steps, missed the last step and tripped and fell hitting her right side in her hip region. Denies hitting her head or having loss of consciousness. States she has not stood up since the event, is having pain in her right groin. Notes that she broke her hip back in February. Denies any chest pain or difficulty breathing. Notes that she go for morphine by EMS. patient denies any numbness or focal weakness. Is on Eliquis with a history of AFib. Denies urinary incontinence or stool incontinence. Related Data Home Medications ?Medication ?Instructions ?Recorded ?Confirmed ?Last Taken ?Type acetaminophen 500 mg tablet 1,000 mg PO TID PRN Pain (Scale 10/21/23 08/24/25 08/24/25 History Score 1-3) amiodarone 200 mg tablet 100 mg PO DAILY 10/21/23 08/24/25 08/24/25 History hydrocortisone 2.5 % topical cream 1 applic RECTAL DAILY PRN 10/21/23 08/24/25 Unknown History with perineal applicator Hemorrhoids melatonin 3 mg tablet 3 mg PO HS PRN Insomnia 10/21/23 08/24/25 08/23/25 History timolol 0.25 % eye drops 1 drp EACH EYE Q12H 10/21/23 08/24/25 08/23/25 History apixaban 2.5 mg tablet (Eliquis) 2.5 mg PO Q12H 08/12/25 08/24/25 08/24/25 History pantoprazole 40 mg tablet,delayed 40 mg PO DAILY 08/12/25 08/24/25 08/23/25 History release polysaccharide iron complex 150 mg 150 mg PO DAILY 08/12/25 08/24/25 Unknown History iron capsule rosuvastatin 5 mg tablet 5 mg PO .QOD 08/12/25 08/24/25 08/23/25 History sacubitril 24 mg-valsartan 26 mg 1 tablet PO BID 08/12/25 08/24/25 08/23/25 History tablet Allergies Allergy/AdvReac Type Severity Reaction Status Date / Time Sulfa (Sulfonamide Allergy Severe Swelling Verified 08/13/25 07:38 Antibiotics) of Lip/Tongue/Throat Review of Systems Review of Systems: A 10 system review of systems was completed on the patient and is negative except for what is stated in the HPI. Nursing and ancillary documentation was reviewed. [facility] Past Medical History Medical History History of hip fracture right hip Heart failure with mid-range ejection fraction Echocardiogram in October 2023 showed mildly reduced LV systolic function with an EF of 45 to 50% and grade 1 diastolic dysfunction. Transient ischemic attack Chronic anticoagulation Paroxysmal atrial fibrillation Left bundle branch block Hyperlipidemia Hypertension Lymphoma (2020) Surgical History Surgical History History of lymph node biopsy Family History Family History Sibling Cerebrovascular accident Mother Cardiac abnormality Social History Social History (Updated 08/13/25 @ 14:44 by Starr Holland PA-C) Social History: Lives home alone with no pets. Surrogate medical decision maker: Annemarie Ortiz, granddaughter. Code status: Full code. Smoking status: Never smoker Second hand tobacco smoke exposure: No Alcohol intake: never Substance use: never Substance use type: does not use Lack of Transportation: No Lack of Food: Never True Current Housing: I Have Housing Concerned About Future Housing: No Difficulty Paying Gas/Electric Bills: No Difficulty Paying for Meds: No Currently Unemployed: No Education: Bachelor's Degree Difficulty w/ Childcare or Family Care: No Spiritual care concerns: No Exam Narrative: CONST: No acute distress. Well nourished. HENMT: Head is normocephalic and atraumatic. Tacky mucous membranes. No posterior oropharynx erythema. EYES: No scleral icterus. No conjunctival injection or pallor. PERRL. NECK: No meningeal signs. RESP: Able to speak in full sentences. Normal respiratory effort. CTAB. CARDIO: Regular rate. [Regular] rhythm. 2+ DP and radial pulses bilaterally. GI: Nondistended. No tenderness to palpation. Soft. : No CVA tenderness to palpation. SKIN: No rashes or lesions noted on exposed skin. NEURO: Oriented x3. Moves all extremities. No focal neurological deficits. no saddle anesthesia. EXTREM/MSK/BACK: No pedal edema. Mild midline tenderness to palpation in the lumbosacral region without palpable step-offs. Mild tenderness to palpation of the right inguinal region. No upper extremity tenderness palpation or palpable deformities. No upper leg her lower leg or foot tenderness palpation or palpable deformities. Patient is able to wiggle her toes with the bilateral lower extremities. Sensation intact to light touch throughout the bilateral lower extremities. PSYCH: Normal affect. Course Vital Signs Vital signs: Vital Signs Pulse Rate 76 08/23/25 18:46 Respiratory Rate 14 08/23/25 18:46 Blood Pressure 154/73 H 08/23/25 18:46 Pulse Oximetry 97 08/23/25 18:46 Oxygen Delivery Room Air 08/23/25 18:46 Temperature 97.9 F 08/24/25 01:52 Pulse Rate 98 08/24/25 01:52 Respiratory Rate 18 08/24/25 01:52 Blood Pressure 167/70 H 08/24/25 01:52 Pulse Oximetry 98 08/24/25 01:52 Oxygen Delivery Room Air 08/23/25 18:46 [facility] Narrative Medical decision making narrative: Patient presents with the above complaint. Initial vitals are remarkable for no significant abnormalities. Physical examination as noted above. Plan discussed: laboratory analysis, pelvis and right hip x-ray, chest x-ray, continues cardiac monitoring, continuous pulse oximetry, IV fluids, Zofran, morphine. I spoke with orthopedic surgery on-call Dr. Gonzalez who notes to admit the patient to the hospitalist, NPO at midnight, will see the patient on consultation. Patient ordered a Bah. I spoke with the hospitalist on-call who has accepted the patient for admission. Differential Diagnosis Differential Diagnosis: Fracture, contusion, sprain, strain, other acute traumatic injuries. Medical Records I have reviewed the following patient records and this information was taken into consideration when formulating the assessment and plan.: previous ER visits Lab Data [facility] Lab Attestation statement: I personally reviewed the patient's lab results. Lab results narrative: Urinalysis shows trace ketones, 1+ blood, trace leukocyte esterase, 6-10 rbc's. CMP reveals a sodium 129, creatinine 1.06. magnesium is 1.8. Lactic acid is 1.0. Total creatine kinase is 43. Coags reveal a PT of 15.5. CBC reveals a white blood cell count 10.5, hemoglobin 8.5. Comparing today's labs to most recent labs on file from August 14, 2025 the hemoglobin is improved, the sodium is decreased, the creatinine is not changed markedly and is slightly improved 08/23/25 21:03 08/23/25 21:03 Labs: Lab Results 08/23/25 Range/Units 21:03 WBC 10.5 H (4.5-10.0) K/mm3 RBC 3.29 L (4.2-5.4) M/mm3 Hgb 8.5 L (12.0-15.0) g/dL Hct 28.1 L (37.0-47.0) % MCV 85.4 (80-100) fl MCH 25.8 L (26-34) pg MCHC 30.2 L (32-36) g/dl RDW 21.7 H (11.5-14.5) % Plt Count 154 (150-375) k/mm3 MPV 9.0 (7.4-10.4) fl Immature Gran % (Auto) 0.8 H (0-0.5) % Neut % (Auto) 76.1 H (45.5-73.1) % Lymph % (Auto) 15.3 L (18.3-44.2) % [place] % (Auto) 6.4 (2.6-8.5) % Eos % (Auto) 0.8 (0-4.4) % Baso % (Auto) 0.6 (0.2-1.2) % Lymph # (Auto) 1.61 (0.9-3.2) K/mm3 [place] # (Auto) 0.7 H (0.1-0.6) K/mm3 Eos # (Auto) 0.1 (0-0.3) K/mm3 Baso # (Auto) 0.1 (0.0-0.1) K/mm3 Abs Immat Gran (auto) 0.08 H (0.00-0.031) K/mm3 Absolute Neuts (auto) 8.0 H (1.3-6.7) K/mm3 Absolute Nucleated RBC 0.000 (0.0-0.012) K/mm3 Nucleated RBC % 0.0 (0.0-0.2) % PT 15.5 H (11.1-14.7) Seconds INR 1.2 APTT 29.9 (22.3-36.8) Seconds Sodium 129 L (137-145) mmol/L Potassium 3.9 (3.4-5.0) mmol/L Chloride 102 (98-107) mmol/L Carbon Dioxide 22 (22-30) mmol/L Anion Gap 5 (4-12) mmol/L BUN 15 (7-17) mg/dL Creatinine 1.06 H (0.7-1.0) mg/dL Estim Creat Clear Calc 28 ml/min Estimated GFR 49 L (59 - ) Glucose 93 (65-110) mg/dL Lactic Acid 1.0 (0.7-2.0) mmol/L Calcium 8.9 (8.4-10.2) mg/dL Magnesium 1.8 (1.6-2.3) mg/dL Total Bilirubin 0.6 (0.2-1.3) mg/dL AST 25 (14-36) U/L ALT 15 (6-35) U/L Alkaline Phosphatase 78 (38-126) U/L Total Creatine Kinase 43 (30-135) U/L Total Protein 6.3 (6.3-8.2) g/dL Albumin 4.0 (3.5-5.1) g/dL Imaging Data Radiologist's impression: ITS Impressions Hip/Pelvis X-Ray 08/23/25 21:38 Impression: 1: Mildly displaced angulated right femoral intertrochanteric fracture. 2: Age-indeterminate fractures right superior and inferior pubic rami. Chest X-Ray 08/23/25 21:41 Impression: 1: Cardiomegaly with mild interstitial edema. Head CT 08/23/25 21:56 IMPRESSION: 1. No acute intracranial abnormality. Cervical Spine CT 08/23/25 22:01 IMPRESSION: 1. No acute abnormality of the cervical spine. Chest/Abdomen/Pelvis/Spine CT 08/23/25 22:05 IMPRESSION: 1. Multiple fractures: Right femoral intertrochanteric fracture with varus angulation, fractures right superior and inferior pubic rami and pubic symphysis, fracture right sacral ala and possible inferior endplate fracture L4, age indeterminate. 2: Small pleural effusions with dependent atelectasis. Critical Care Time Critical Care Time Critical Care Time: Yes Indication: Trauma Time Type: Intermittent Initial evaluation, discuss w/ involved parties, attempting to gather old records: 10 minutes Documenting medical record: 5 minutes Review of results (EKG's, labs, imaging): 5 minutes Serial repeat bedside evaluation: 10 minutes Discussing case with multiple memebers of the care team and consultants: 5 minutes Total Critical Care Time: 35 Discharge Plan Discharge Clinical Impression: Closed hip fracture, Closed sacral fracture, Closed fracture of pubic ramus, Closed fracture of symphysis pubis, Fall, Closed compression fracture of L4 vertebra, Hyponatremia Patient Disposition: Still a Patient Condition: Stable Time of Disposition: 23:48
--- OUTSIDE RECORDS SUMMARY | 2025-08-23 21:07 | XMS_ITS | Clinical Summary ---
Author Organization [facility] Address [address] [place] [address] Phone Care Team Providers Care Manager Mass Name Role Phone Ashlee Doyle MD Primary Care Provider Cruz Lombradi MD Unavailable [phone] Allergies Active Allergy Reactions Criticality Noted Date [...] Encounters Date Type Department Care Team Description 08/22/2025 Telephone [facility] [address] [address] Cruz Lombardi MD 08/19/2025 12:15 PM OPERA SINGER Lab [facility] [address] [address] Iron deficiency anemia, unspecified iron deficiency anemia type 08/19/2025 10:45 AM OPERA SINGER Office Visit [facility] [address] [address] Cruz Lombardi MD Iron deficiency anemia, unspecified iron deficiency anemia type (Primary Dx) 08/19/2025 Travel 08/05/2025 11:15 AM OPERA SINGER Lab [facility] [address] [address] Lab, [facility] Anemia due to unknown mechanism 08/05/2025 10:30 AM OPERA SINGER Office Visit [facility] [address] [address] Cruz Lombardi MD Anemia due to unknown mechanism (Primary Dx) 08/05/2025 Results Follow-Up [facility] [address] [address] Cruz Lombardi MD IRON W/ IRON BINDING [...] Comments Blood Pressure 114/66 08/19/2025 11:12 AM OPERA SINGER Pulse 68 08/19/2025 11:12 AM OPERA SINGER Temperature 36.3 C (97.4 F) 08/19/2025 11:12 AM OPERA SINGER Respiratory Rate 16 08/19/2025 11:12 AM OPERA SINGER Oxygen Saturation 94% 08/19/2025 11:12 AM OPERA SINGER Inhaled Oxygen Concentration - - Weight 53.5 kg (118 lb) 08/19/2025 11:12 AM OPERA SINGER Height 166.4 cm (5' 5.5) 08/19/2025 11:12 AM CS T Body Mass Index 19.34 08/19/2025 11:12 AM OPERA SINGER Plan of Treatment Upcoming Encounters Date Type Department Care Team (Late st Contact Info) Description 09/02/2025 10:45 AM OPERA SINGER Office Visit [facility] [address] [address] Cruz Lombardi MD 1052 [facility] [place] [address] [address] 09/02/2025 11:00 AM OPERA SINGER Clinical Support [facility] [address] [address] Nurse, [facility] Health Maintenance Due Date Last Done Comments [...] AUTO DIFF [place] Routine 08/19/2025 11:57 AM OPERA SINGER CBC WITH AUTO DIFF OH Routine 08/05/2025 11:20 AM OPERA SINGER CMP (COMPREHENSIVE METABOLIC PANEL) Routine 08/05/2025 11:20 AM OPERA SINGER Anemia due to unknown mechanism LACTATE DEHYDROGENASE (LD) Routine 08/05/2025 11:20 AM OPERA SINGER Anemia due to unknown mechanism FOLIC ACID (FOLATE) Routine 08/05/2025 1 1:20 AM OPERA SINGER Anemia due to unknown mechanism FERRITIN Routine 08/05/2025 11:20 AM OPERA SINGER Anemia due to unknown mechanism RETICULOCYTE COUNT (RETIC) Routine 08/05/2025 11:20 AM OPERA SINGER Anemia due to unknown mechanism IRON W/ IRON BINDING CAPACITY [place] Routine 08/05/2025 11:20 AM OPERA SINGER Anemia due to unknown mechanism VITAMIN B12 Routine 08/05/2025 11:20 AM OPERA SINGER Anemia due to unknown mechanism HAPTOGLOBIN Routine 08/05/2025 11:20 AM OPERA SINGER Anemia due to unknown mechanism ELECTROPHORESIS W/ TOTAL PROTEIN SERUM Routine 08/05/2025 11:20 AM OPERA SINGER Anemia due to unknown mechanism from Last 3 Months Results * (ABNORMAL) CBC WITH AUTO DIFF [place] (08/19/2025 11:57 AM OPERA SINGER) Only the most recent of2 resultswithin the time period is included. WBC 7.2 4.0 - 10.0 10*3/uL CANCER BACTERIOLOGY TECHNICIAN [facility] HGB 8.6(L) 11.2 - 15.7 g/dL CANCER BACTERIOLOGY TECHNICIAN [facility] HCT 28.6(L) 34.1 - 44.9 % CANCER BACTERIOLOGY TECHNICIAN [facility] PLT 189 163 - 369 10*3/uL CANCER BACTERIOLOGY TECHNICIAN [facility] MPV 9.3(L) 9.4 - 12.4 fL CANCER BACTERIOLOGY TECHNICIAN [facility] RBC 3.39(L) 3.93 - 5.22 10*6/uL CANCER BACTERIOLOGY TECHNICIAN [facility] MCV 84 79 - 95 fL CANCER BACTERIOLOGY TECHNICIAN [facility] MCH 25.4(L) 25.6 - 32.2 pg CANCER BACTERIOLOGY TECHNICIAN [facility] MCHC 30.1(L) 32.2 - 36.5 g/dL CANCER BACTERIOLOGY TECHNICIAN [facility] RDW 19.7(H) 11.6 - 14.4 % CANCER BACTERIOLOGY TECHNICIAN [facility] Neutrophils % 57.3 36.0 - 66.0 % CANCER BACTERIOLOGY TECHNICIAN [facility] Lymphocytes % 28.9 19.0 - 40.0 % CANCER BACTERIOLOGY TECHNICIAN [facility] Monocytes % 11.0 4.1 - 12.1 % CANCER BACTERIOLOGY TECHNICIAN [facility] Eosinophils % 1.3 0.0 - 3.5 % CANCER BACTERIOLOGY TECHNICIAN [facility] Basophils % 1.1(H) 0.0 - 1.0 % CANCER BACTERIOLOGY TECHNICIAN [facility] Absolute Neutrophils 4.1 1.4 - 6.6 10*3/uL CANCER BACTERIOLOGY TECHNICIAN [facility] Absolute Lymphocytes 2.1 0.8 - 4.0 10*3/uL CANCER BACTERIOLOGY TECHNICIAN [facility] Absolute Monocytes 0.8 0.2 - 1.2 10*3/uL CANCER BACTERIOLOGY TECHNICIAN [facility] Absolute Eosinophils 0.1 0.0 - 0.4 10*3/uL CANCER BACTERIOLOGY TECHNICIAN [facility] Absolute Basophils 0.1 0.0 - 0.1 10*3/uL CANCER BACTERIOLOGY TECHNICIAN [facility] 08/19/2025 11:5 7 AM OPERA SINGER us Cruz Lombardi MD LAB SEND OUTS Final Result CANCER BACTERIOLOGY TECHNICIAN [facility] [address] [place] [address], [place] [phone] * (ABNORMAL) IRON W/ IRON BINDING CAPACITY [place] (08/05/2025 11:20 AM OPERA SINGER) IRON 20(L) 50 - 212 ug/dL CANCER BACTERIOLOGY TECHNICIAN [facility] UIBC 457(H) 155 - 355 ug/dL CANCER BACTERIOLOGY TECHNICIAN [facility] TIBC 477 261 - 478 ug/dl CANCER BACTERIOLOGY TECHNICIAN [facility] % Saturation 4(L) 20 - 50 % CANCER BACTERIOLOGY TECHNICIAN [facility] 08/05/2025 11:2 0 AM OPERA SINGER Narrative [facility] 08/05/2025 12:29 PM OPERA SINGER Release to patient->Immediate us Cruz Lombardi MD LAB SEND OUTS Final Result Performing Organization Address City/[facility]/ZIP Co de Phone Number CANCER BACTERIOLOGY TECHNICIAN [facility] [address] [place] [place] [address], [place] [phone] * VITAMIN B12 (08/05/2025 11:20 AM OPERA SINGER) Vitamin B12 209 180 - 914 pg/mL CANCER BACTERIOLOGY TECHNICIAN [facility] Blood 08/05/2025 11:2 0 AM OPERA SINGER Karlene [facility] - 08/06/2025 3:15 PM OPERA SINGER Release to patient->Immediate us Cruz Lombardi MD CHEMISTRY ORDERABLES Final R esult [facility] [address] [place] [address], * (ABNORMAL) RETICULOCYTE COUNT (RETIC) (08/05/2025 11:20 AM OPERA SINGER) Reticulocyte count 1.71(H) 0.50 - 1.70 % CANCER BACTERIOLOGY TECHNICIAN [facility] RET-He 23.80(L) 28.20 - 36.60 pg CANCER BACTERIOLOGY TECHNICIAN [facility] Comment: RET-He is a direct assessment of incorporation of iron into erythrocyte hemoglobin. It provides an indirect measure of the iron available for new erythropoiesis over past 2-4 days. Blood 08/05/2025 11:2 0 AM OPERA SINGER [facility] - 08/05/2025 11:38 AM OPERA SINGER Release to patient->Immediate us Cruz Lombardi MD HEMATOLOGY ORDERABLES Final Result Performing Organization Address City/[facility]/ZIP Co de Phone Number CANCER BACTERIOLOGY TECHNICIAN [facility] [address] [place] [address], [place] [phone] * LACTATE DEHYDROGENASE (LD) (08/05/2025 11:20 AM OPERA SINGER) LDH 195 140 - 271 U/L [facility] Blood 08/05/2025 11:2 0 AM OPERA SINGER [facility] - 08/05/2025 12:13 PM OPERA SINGER Release to patient->Immediate us Cruz Lombardi MD CHEMISTRY ORDERABLES Final R esult Performing Organization Address [facility] Co de Phone Number CANCER BACTERIOLOGY TECHNICIAN [facility] [address] [place] [address], [place] [phone] * HAPTOGLOBIN (08/05/2025 11:20 AM OPERA SINGER) HAPTO 176 44 - 215 mg/dL [facility] Blood 08/05/2025 11:2 0 AM OPERA SINGER [facility] - 08/06/2025 3:15 PM OPERA SINGER Release to patient->Immediate us Cruz Lombardi MD CHEMISTRY ORDERABLES Final R esult Performing Organization Address City/[facility]/ZIP Co de Phone Number CANCER BACTERIOLOGY TECHNICIAN [facility] [address] [place] [address], [place] [phone] * FOLIC ACID (FOLATE) (08/05/2025 11:20 AM OPERA SINGER) Folate >20.00 >=5.90 ng/mL [facility] Blood 08/05/2025 11:2 0 AM OPERA SINGER Narrative [facility] - 08/06/2025 3:15 PM OPERA SINGER Release to patient->Immediate IS THE PATIENT REQUIRED TO BE FASTING FOR 12 HOURS?->No Cruz Lombardi MD CHEMISTRY ORDERABLES Final R esult CANCER BACTERIOLOGY TECHNICIAN [facility] [address] [place] [address], [place] [phone] * FERRITIN (08/05/2025 11:20 AM OPERA SINGER) Ferritin 17 11 - 307 ng/mL [facility] Blood 08/05/2025 11:2 0 AM OPERA SINGER Narrative [facility] - 08/06/2025 3:15 PM OPERA SINGER Release to patient->Immediate Cruz Lombardi MD CHEMISTRY ORDERABLES Final R esult [facility] [address] [place] [address], [place] [phone] * (ABNORMAL) ELECTROPHORESIS W/ TOTAL PROTEIN SERUM (08/05/2025 11:20 AM OPERA SINGER) PROTEIN, TOTAL, SERUM 5.8(L) 6.0 - 8.5 G/DL [facility] ALBUMIN 3.4 2.9 - 4.4 G/DL [facility] [id number]-[id number] 0.3 0.0 - 0.4 G/DL [facility] [id number] 0.7 0.4 - 1.0 G/DL [facility] BETA GLOBULIN 0.9 0.7 - 1.3 G/DL CANCER BACTERIOLOGY TECHNICIAN [facility] GAMMA GLOBULIN 0.5 0.4 - 1.8 G/DL [facility] M-SPIKE NOT OBSERVED NOT OBSERVED G/DL [facility] GLOBULIN, TOTAL 2.4 2.2 - 3.9 G/DL [facility] A/G RATIO 1.4 0.7 - 1.7 [facility] TER SPECIALISTS [facility] PLEASE NOTE: COMMENT [facility] BACTERIOLOGY TECHNICIAN [facility] Comment: PROTEIN ELECTROPHORESIS SCAN WILL FOLLOW VIA COMPUTER, MAIL, OR EXERCISE PHYSIOLOGIST DELIVERY. PDF . [facility] TER SPECIALISTS [facility] Blood 08/05/2025 11:2 0 AM OPERA SINGER Narrative [facility] - 08/06/2025 3:09 PM OPERA SINGER TESTING PERFORMED AT: [] [facility], [address] [place] [address], [phone], PHONE: [phone], BUSINESS PLANNING DIRECTOR: VANESSA MACHADO, PHD Release to patient->Immediate us Cruz Lombardi MD CHEMISTRY ORDERABLES Final R esult [facility] Cancer Care [address] [place] [address], * (ABNORMAL) CMP (COMPREHENSIVE METABOLIC PANEL) (08/05/2025 11:20 AM OPERA SINGER) Glucose 98 70 - 105 mg/dL [facility] Blood Urea Nitrogen 13 7 - 25 mg/dL [facility] Creatinine 1.1 0.6 - 1.2 mg/dL [facility] Sodium 136 136 - 145 mEq/L [facility] Potassium 4.2 3.5 - 5.1 mEq/L [facility] Chloride 102 98 - 107 mEq/L [facility] Bicarbonate 25 21 - 31 mEq/L [facility] Total Bilirubin 0.4 0.3 - 1.0 mg/dL [facility] Alk. Phosphatase 79 34 - 104 U/L [facility] Aspartate Aminotransferase 16 13 - 39 U/L [facility] Alanine Aminotransferase 9 7 - 52 U/L [facility] Total Protein 5.9(L) 6.4 - 8.9 g/dL [facility] Albumin 4.1 3.5 - 5.7 g/dL [facility] Calcium 9.0 8.6 - 10.3 mg/dL [facility] Anion Gap 13.2 7.0 - 15.0 mEq/L [facility] Globulin 1.8(L) 2.0 - 3.5 g/dL [facility] EGFR 48(L) >60 ml/min/1. 73m2 CANCER BACTERIOLOGY TECHNICIAN [facility] Comment: This eGFR is calculated using 2020 CKD-EPI Creatinine equation without race modifier based on the NKF-ASN task force recommendations Equation: oOFS=873*min(SCr/k,1)a*max(SCr/k,1)-1.200*0.9938Age*1.012 (if female), where SCr is serum creatinine, k is 0.7 for females and 0.9 for males, and a is -0.241 for females and -0.302 for males Blood 08/05/2025 11:2 0 AM OPERA SINGER Narrative [facility] - 08/05/2025 12:13 PM OPERA SINGER Release to patient->Immediate IS THE PATIENT REQUIRED TO BE FASTING FOR 8 HOURS?->No us Cruz Lombardi MD CHEMISTRY ORDERABLES Final R esult CANCER BACTERIOLOGY TECHNICIAN [facility] [address] [place] [address], from Last 3 Months Insurance [facility] Care Teams Manager Mass Relationship Specialty Start Date End Date Ashlee Doyle MD [address] [place] [phone] PCP - General Internal Medicine 07/22/25 Cruz Lombardi MD [address] [place] [phone] Consulting Physician Oncology 07/24/25
--- OUTSIDE RECORDS SUMMARY | 2025-08-23 21:07 | XMS_ITS | Encounter Summary ---
Author Organization [facility] Address [address] [place] [address] Phone Care Team Providers Care Manager Cash Name Role Phone Ashlee Doyle MD Primary Care Provider [phone] Cruz Lombardi MD Unavailable [phone] Encounter Details Date Type Department Care Team (Latest Contact Info) Description 08/05/2025 Results Follow-Up [facility] [place] [address] [place] [address] Cruz Lombardi MD [facility] [address] IRON W/ IRON BINDING CAPACITY [...] of Assessment Author 80 08/05/2025 10:47 AM NARCOTICS AND VICE DETECTIVE Brandon, Ursula A, RMA * Resp Answer Date of Assessment Author 18 08/05/2025 10:47 AM NARCOTICS AND VICE DETECTIVE Brandon, Ursula A, RMA * SpO2 Answer Date of Assessment Author 99 08/05/2025 10:47 AM NARCOTICS AND VICE DETECTIVE Brandon, Ursula A, RMA * Question Answer Date of Assessment Author Has the patient fallen twice in the past year without injury or once in the past year with injury? Yes 08/05/2025 10:54 AM NARCOTICS AND VICE DETECTIVE C onrad, Ursula A, RMA Does the patient report or d o you observe difficulty in gait or balance? No 08/05/2025 10:54 AM NARCOTICS AND VICE DETECTIVE Brandon, Ursula A, RMA * Question Answer Date of Assessment Author Initial Score 0 08/05/2025 10:54 AM NARCOTICS AND VICE DETECTIVE Con rad, Ursula A, RMA Little interest or pleasure in doing things Not at all 08/05/2025 10:54 AM NARCOTICS AND VICE DETECTIVE Brandon, Ursula A, RMA Feeling down, depressed, or hopeless Not at all 08/05/2025 10:54 AM NARCOTICS AND VICE DETECTIVE Brandon, Ursula A, RMA * Question Answer Date of Assessment Author Has the patient fallen twice in the past year without injury or once in the past year with injury? Yes 08/05/2025 10:54 AM NARCOTICS AND VICE DETECTIVE C onrad, Ursula A, RMA Does the patient report or d o you observe difficulty in gait or balance? No 08/05/2025 10:54 AM NARCOTICS AND VICE DETECTIVE Brandon, Ursula A, RMA * Question Answer Date of Assessment Author Initial Score 0 08/05/2025 10:54 AM NARCOTICS AND VICE DETECTIVE Con rad, Ursula A, RMA Little interest or pleasure in doing things Not at all 08/05/2025 10:54 AM NARCOTICS AND VICE DETECTIVE Brandon, Ursula A, RMA Feeling down, depressed, or hopeless Not at all 08/05/2025 10:54 AM NARCOTICS AND VICE DETECTIVE Brandon, Ursula A, RMA * Over the past 2 weeks, how often have you been bothered by any of the following problems? Question Answer Date of Assessment Author Patient Health Questionnaire -2 Score 0 08/05/2025 10:54 AM NARCOTICS AND VICE DETECTIVE Brandon, Ursula A, RMA documented as of this encounter Mental Status * BP Answer Entry Date Author 130/62 08/05/2025 10:47 AM NARCOTICS AND VICE DETECTIVE Brandon, Ursula A, RMA * Temp Answer Entry Date Author 98 08/05/2025 10:47 AM NARCOTICS AND VICE DETECTIVE Brandon, Ursula A, RMA * Pulse Answer Entry Date Author 80 08/05/2025 10:47 AM NARCOTICS AND VICE DETECTIVE Brandon, Ursula A, RMA * SpO2 Answer Entry Date Author 99 08/05/2025 10:47 AM NARCOTICS AND VICE DETECTIVE Brandon, Ursula A, RMA * Question Answer Entry Date Author Has the patient fallen twice in the past year without injury or once in the past year with injury? Yes 08/05/2025 10:54 AM NARCOTICS AND VICE DETECTIVE C onrad, Ursula A, RMA Does the patient report or d o you observe difficulty in gait or balance? No 08/05/2025 10:54 AM NARCOTICS AND VICE DETECTIVE Brandon, Ursula A, RMA * Question Answer Entry Date Author Initial Score 0 08/05/2025 10:54 AM NARCOTICS AND VICE DETECTIVE Con rad, Ursula A, RMA Little interest or pleasure in doing things Not at all 08/05/2025 10:54 AM NARCOTICS AND VICE DETECTIVE Brandon, Ursula A, RMA Feeling down, depressed, or hopeless Not at all 08/05/2025 10:54 AM NARCOTICS AND VICE DETECTIVE Brandon, Ursula A, RMA documented in this encounter Plan of Treatment Upcoming Encounters Date Type Department Care Team (Late st Contact Info) Description 09/02/2025 10:45 AM NARCOTICS AND VICE DETECTIVE Office Visit [facility] [address] [address] Cruz Lombardi MD [address] [facility] [address] [address] 09/02/2025 11:00 AM NARCOTICS AND VICE DETECTIVE Clinical Support [facility] [address] [address] Nurse, [facility] documented as of this encounter Visit Diagnoses Not on filedocumented in this encounter Care Teams Manager Cash Relationship Specialty Start Date End Date Ashlee Doyle MD [address] [place] [address] PCP - General Internal Medicine 07/22/25 Cruz Lombardi MD [address] [place] [address] Consulting Physician Oncology 07/24/25 documented as of this encounter
--- OUTSIDE RECORDS SUMMARY | 2025-08-23 21:07 | XMS_ITS | Encounter Summary ---
Author Organization [facility] Address [address] [place] [address] Phone Care Team Providers Care Regional Marketing Manager Name Role Phone Miscellaneous, Not In File Unavailable Unava ilable Sheryl Latham MD Unavailable [phone] Ashlee Doyle MD Primary Care Provider [phone] Jonh Junior MD Unavailable Encounter Details Date Type Department Care Team (Late st Contact Info) Description 08/21/2025 Telephone [facility] Medicine Cardiology [address] [facility] Advanced Medicine 8th [place] [address] [place] [address] Jonh Junior MD [address] [facility] [address] [place] [address] Social History Tobacco Use Types [...] on file Legal Sex Female 2:10 AM HR SYSTEMS ANALYST Gender Identity Not on file Sexual Orientation Not on file Occupation Industry Job Start Date Job End Date retired Not on file Not on file Not on file documented as of this encounter Miscellaneous Notes * Telephone Encounter - Rhiannon Fernández - 08/23/2025 11:49 AM CST [place] [facility] calling back to speak with a nurse in regards to following up after being discharged from [facility] SYSTEMS ANALYST * Telephone Encounter - Yarelis Hernández - 08/21/2025 11:42 AM CST [place] [facility] requesting cb in regards to recent hospitalization from 08/12-08/14 at [facility] in [facility]. SYSTEMS ANALYST documented in this encounter Plan of Treatment Not on file documented as of this encounter Visit Diagnoses Not on filedocumented in this encounter Care Teams Regional Marketing Manager Relationship Specialty Start Date End Date Ashlee Doyle MD [address] [place] [address] PCP - General Internal Medicine 09/05/23 Miscellaneous, Not In File 03/24/21 Sheryl Latham MD Medical Oncologist/Screw Machine Adjuster Automatic Medical Oncology 05/12/21 Jonh Junior MD [address] [place] [address] Referring Physician Cardiology 09/05/23 documented as of this encounter
--- OUTSIDE RECORDS SUMMARY | 2025-08-23 21:07 | XMS_ITS ---
Author Organization [facility] Address [address] [place] [address] Care Team Providers Care Hair Preparer Name Role Phone Miscellaneous, Not In File Unavailable Unava ilable Sheryl Latham MD Unavailable Ashlee Doyle MD Primary Care Provider [phone] Jonh Junior MD Unavailable Active Problems Problem [...] ready for that. 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 Will have second opinion with [facility] next available per patient request. 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
--- OUTSIDE RECORDS SUMMARY | 2025-08-23 21:07 | XMS_ITS | Continuity of Care Document ---
Author Organization [facility] Disruptor Beam, FITiST Address [address] [place] [address] Care Team Providers Care Single Ending Machine Operator Name Role Phone ASHLEE DOYLE Primary Care Provider [phone] Assessment Encounter Date Assessment Date Assessment LastModified [...] Time Details Appointments ESTABLISH ED PATIENT 15 2025 10:30A M Ashlee Doyle MD Not available Not available Not available Lab lipid panel w/ direct LDL, serum 2024 [facility], [address] [place], [address], 07/23/2025 05:34:31 CMP, serum or plasma 2024 025 [facility], [address] [place], [address], 07/23/2025 05:34:31 CBC w/ auto diff 2024 025 [facility], [address] [place], [address], 07/23/2025 05:34:31 iron panel, serum or plasma 2024 [facility], [address] [place], [address], 07/21/2025 17:43:33 vitamin B12 + folate, serum or blood 2024 [facility], [address] [place], [address], 07/21/2025 17:43:33 pro BNP (pro B-type natriuret ic peptide), serum or plasma 2024 [facility], [address] [place], [address], 07/21/2025 17:43:32 Referral None recorded. Procedures None recorded. Surgeries None recorded. Imaging XR, cervical spine, 2 or 3 view 2024 [facility] ([facility]), [address] [place], [address], 07/19/2025 12:24:31 US, duplex, carotid artery 2024 [facility], [address] [place] [address] [address], [place], [address], 07/09/2025 17:47:54 Medication Orders polysacch aride iron complex 150 mg iron capsule 2024 [facility] [address], [address], 07/09/2025 12:37:22 cyanocoba reggie (vit B-12) 1,000 mcg sublingua l tablet 2024 [facility] [address] [facility] [address] [place], [address], 07/09/2025 12:37:22 Patient TargetsNo targets recorded. Patient Instructions Encounter Date Encounter Id Patient Instructions Last Modified By Organization Details Last Modified Time 07/09/2025 [id number] Peripheral Arterial Disease (PAD): Care Instructions [facility] Not available 07/09/2025 12:37:17 (RANGEL) ankle brachial index* [facility] Not available 07/09/2025 17:47:49 mammogram: about this test [facility] Not available 07/09/2025 12:37:17 neck pain: care instructions [facility] Not available 07/09/2025 12:37:17 learning about healthy weight [facility] Not available 07/09/2025 12:37:17 anemia: care instructions [facility] Not available 07/09/2025 12:37:17 carotid stenosis : care instructions [facility] Not available 07/09/2025 12:37:17 heart failure: care instructions [facility] Not available 07/09/2025 12:37:16 learning about heart failure [facility] Not available 07/09/2025 12:37:17 Reason for Referral None Reported. Results Created Date Observation Date Name Description Value Unit Range Abnormal Flag Note LastModifiedBy Organization Detail LastModifiedTime 07/09/2007/09/2025 , jennifer thrasher, juan id arter y No observ ation record ed. [facility], [place] [address] [facility] [address], [place], [address], 07/09/2025 17:47:54 07/19/2007/19/2025 XR, cervi clay spine , 2 or 3 view No observ ation record ed. [facility] [address] [place], [address], 07/23/2025 13:26:58 08/12/2008/12/2025 XR, chest , 2 view No observ ation record ed. [address] [facility] [address], [place], [address], 08/13/2025 10:31:26 Result Notes None recorded. Problems Name Problem SNOMED Code Status Onset Date Resolution Date Notes Provider Name and Address Organization Details Recorded Time Benign hypertens ion 60637827 Active 2016 Not Available [facility] 3 14:49:31 Hyperlipi demia 73548721 Active 2016 Not Available [facility] 3 14:49:31 Hemorrhoi ds 70978164 Active 2016 Not Available [facility] 3 14:49:31 Left bundle branch block 34430576 Active 2016 sees cardiolog y once a year Not Available [facility] 3 14:49:31 Osteopeni a 324622813 Active 2016 Not Available [facility] 3 14:49:31 Osteoarth ritis 939549432 Active 2016 Not Available [facility] 3 14:49:31 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 Not Available [facility] 3 14:49:31 Transient cerebral ischemia 415347711 Active 2016 Not Available [facility] 3 14:49:31 Allergic rhinitis 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 05797191 Active 2016 Not Available [facility] 3 14:49:31 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 682628380 Active 2016 Not Available [facility] 3 14:49:31 Carotid artery stenosis 80298480 Active 2016 Not Available [facility] 3 14:49:31 Focal onset epileptic seizure 07203667 Active 2017 Not Available [facility] 3 14:49:31 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 348492553 Active 2017 Not Available [facility] 3 14:49:31 History of Malignant melanoma 503490916 Active 2018 Not Available [facility] 3 14:49:31 Gastroeso phageal reflux disease without esophagit is 757004132 Active 2018 Not Available [facility] 3 14:49:31 Ophthalmi c migraine 36478677 Active 2018 on ophth note 07/24/19 Not Available [facility] 3 14:49:31 Open-angl e glaucoma of left eye 214691762 Active 2018 on ophth note 07/24/19 Not Available [facility] 3 14:49:31 Idiopathi c periphera l neuropath y 51282033 Active 2019 Not Available [facility] 3 14:49:31 Family history of diabetes mellitus 486956864 Active 2019 Not Available [facility] 3 14:49:31 Neoplasm of supraclav icular region 539254028 Active 2020 Not Available [facility] 3 14:49:31 Hyponatre kasandra 88630416 Active 2020 Not Available [facility] 3 14:49:31 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, face AND/OR neck 13946627 Active 2020 Not Available [facility] 3 14:49:31 Coronary arteriosc lerosis 52545344 Active 2020 non occlusive per cardiolog y note 06/11/21 Not Available [facility] 3 14:49:31 Paroxysma l atrial fibrillat ion 696407723 Active 2020 Not Available [facility] 3 14:49:31 Diffuse high grade B-cell lymphoma 541030044 Active 2020 Not Available [facility] 3 14:49:31 Macrocyto sis 419452141 Active 2020 Not Available [facility] 3 14:49:31 History of SARS-CoV- 2 26953377028 4021394 Active 2021 Not Available [facility] 3 14:49:31 Long-term drug therapy Active 2021 Not Available [facility] 3 14:49:31 Increased frequency of urination 948953291 Active 2021 Not Available [facility] 3 14:49:31 Vitamin B deficienc y 42762631 Active 2022 Not Available [facility] 3 14:49:31 Mixed urinary incontine nce 701833255 Active 2022 Not Available [facility] 3 14:49:31 Hypomagne semia 077085581 Active 2022 Not Available [facility] 3 14:49:31 Mixed hyperlipi demia 151328982 Active 2022 Not Available [facility] 3 14:49:31 Insomnia 984584996 Active 2022 Not Available [facility] 3 14:49:31 Periphera l vascular disease 918958712 Active 2022 MD Kane Galeano [address], [address] , [facility] 3 11:47:35 Anemia 879125272 Active 2023 MD Kane Galeano [address], [address] , [facility] 4 22:05:29 Body mass index less than 20 482662775 Active 2023 MD Kane Galeano [address], [address] , [facility] 4 11:56:56 Dysphagia 53495291 Active 2023 MD Kane Galeano [address], [address] , [facility] 4 14:14:25 Mild memory disturban ce 099581311 Active 2023 MD Kane Galeano [address], [address] , [facility] 4 13:46:21 Congestiv e heart failure 92920945 Active 2023 MD Kane Galeano [address], [address] , [facility] 4 12:20:10 Iron deficienc y anemia 18040443 Active 2023 MD Kane Galeano [address], [place], [address] , [facility] 4 12:22:31 Left bundle branch block 24608251 Active 2023 MD Kane Galeano [address], [place], , [facility] 4 12:26:56 Stasis dermatiti s 35074176 Active 2023 MD aKne Galeano [address], [place], [address] , [facility] 4 12:34:37 Fungal esophagit is 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 Active 2023 MD Kane Galeano [address], [place], [address] , [facility] 4 17:34:02 CT of abdomen abnormal 57046911554 719701 Active 2024 MD Kane Galeano [address], [place], [address] , [facility] 5 20:40:35 Prediabet es 774401555 Active 2024 Dxed by A1c 6.2% on 10/23/24 MD Kane Galeano [address], [place], [address] , [facility] 5 21:01:29 Primary insomnia 2258962 Active 2024 MD Kane Galeano [address], [place], [address] , [facility] 5 18:49:04 Problem Notes None recorded. Procedures Surgical History Date Name Laterality Status Provider Name and Address Organization Details Recorded Time Partial Hysterectomy completed MD Kane Galeano [address], [place], [address], [facility] 05/10/2017 15:03:45 Imaging Results None recorded. Procedure Notes None recorded. Medical Equipment None Reported. Allergies Allergen ID Allergen Name Allergen Category Reaction Reaction Severity Criticality Documentation Date Start Date Code Code System Note Provider Name and Address Organization Details Recorded Time 28808 solifenac in medicatio n dry mouth Not available Not available 10/12/2022 34054 7 RxNorm Not Available [facility] 3 14:49:32 79236 sulfur dioxide medicatio n facial swelling Not available Not available 01/11/2025 20591 79 RxNorm Not Available [facility] - External Data Service - prod 5 10:56:21 5921 Substance with sulfonami de structure and antibacte rial mechanism of action (substanc e) medicatio n other Not available Not available 05/10/2017 32754 8003 SNOMED swell pinky Doyle MD [address], [place], [address], [facility] 7 15:03:33 Medications Name Sig Start [...] Available Not Available Not Available Fluzone High-Dose 7532-0144 (PF) 180 mcg/0.5 mL intramuscul ar syringe [...] 5 167.64 cm 98.7 [degF] 18.2 kg/m2 88384.9 4 g 18 /min 80 /min 128/52 mm[Hg] Migdalia Peraza [facility] 5 11:48:39 Social History Question Answer Notes LastModified by Organizat ion Details LastModified Time Tobacco Smoking Status Never Smoker Ashlee Doyle MD [address] [facility], [place], [address], [facility] 05/10/2017 15:11:55 What Is Your Level [...] Of Your Most Recent Tobacco Screening? 07/09/2022 [email or web address] Information not available 07/09/2022 Mother With HIV? [...] preservative 8 completed MD Kane Galeano [address], [place], [address], [facility] 06/12/2023 16:15:07 zoster recombinant 9 MD Kane Julian [address], [place], [address], [facility] 06/12/2023 16:15:07 zoster live 9 MD Kane Julian [address], [place], [address], [facility] 06/12/2023 16:15:08 zoster live 9 MD Kane Julian [address], [place], [address], [facility] 06/12/2023 16:15:08 Influenza, split virus, quadrivalent, preservative 9 MD Kane Julian [address], [place], [address], [facility] 06/12/2023 16:15:07 Influenza, split virus, quadrivalent, preservative 0 completed MD Kane Galeano [address], [place], [address], [facility] 06/12/2023 16:15:07 SARS-COV-2 (COVID-19) vaccine, UNSPECIFIED 1 completed MD Kane Galeano [address], [place], [address], [facility] 06/12/2023 16:15:07 COVID-19, mRNA, LNP-S, PF, 30 mcg/0.3 mL dose 1 completed MD Kane Galeano [address], [place], [address], [facility] 06/12/2023 16:15:07 Influenza, split virus, quadrivalent, preservative 1 completed MD Kane Galeano [address], [place], [address], [facility] 06/12/2023 16:15:07 COVID-19, mRNA, LNP-S, PF, 30 mcg/0.3 mL dose 2 completed MD Kane Galeano [address], [place], [address], [facility] 06/12/2023 16:15:07 Influenza, high-dose, quadrivalent, PF 2 completed MD Kane Galeano [address], [place], [address], [facility] 06/12/2023 16:15:07 Influenza, MDCK, quadrivalent, PF 3 completed MD Kane Galeano [address], [place], [address], [facility] 06/12/2023 16:15:07 RSV, recombinant, protein subunit RSVpreF, adjuvant reconstituted, 0.5 mL, PF 3 completed MD Kane Galeano [address], [place], [address], [facility] 06/12/2023 16:15:07 COVID-19, mRNA, LNP-S, PF, nicole-sucrose, 30 mcg/0.3 mL 3 completed MD Kane Galeano [address], [place], [address], [facility] 06/12/2023 16:15:07 COVID-19, mRNA, LNP-S, PF, nicole-sucrose, 30 mcg/0.3 mL 4 completed MD Kane Galeano [address], [place], [address], [facility] 06/01/2024 14:33:16 COVID-19, mRNA, LNP-S, PF, nicole-sucrose, 30 mcg/0.3 mL 4 completed MD Kane Galeano [address], [place], [address], [facility] 06/01/2024 14:33:16 Influenza, high-dose, trivalent, PF 4 completed MD Kane Galeano [address], [place], [address], [facility] 06/01/2024 14:33:16 COVID-19, mRNA, LNP-S, PF, nicole-sucrose, 30 mcg/0.3 mL 5 completed MD Kane Galeano [address], [place], [address] [place] [address], [facility] 12/26/2024 19:01:03 COVID-19, mRNA, LNP-S, bivalent, PF, 10 mcg/0.2 mL [facility] 14:45:22 influenza, unspecified formulation 5 completed Roxana moy, [facility] 06/27/2025 14:46:36 Pneumococcal conjugate PCV20, polysaccharide SPO473 conjugate, adjuvant, PF 5 completed Lashon moy, [facility] 08/03/2025 19:14:26 Td(adult) unspecified formulation 6 completed MD Kane Galeano [address], [place], [address], [facility] 06/12/2023 16:15:07 Influenza, split virus, quadrivalent, preservative 6 completed MD Kane Galeano [address], [place], [address], [facility] 06/12/2023 16:15:07 Influenza, split virus, quadrivalent, preservative 7 completed MD Kane Galeano [address], [place], [address], [facility] 06/12/2023 16:15:07 Pneumococcal conjugate PCV 13 5 completed MD Kane Galeano [address], [place], [address], [facility] 06/12/2023 16:15:08 pneumococcal polysaccharide PPV23 9 completed MD Kane Galeano [address], [place], [address], [facility] 06/12/2023 16:15:07 zoster live 0 completed MD Kane Galeano [address], [place], [address], [facility] 06/12/2023 16:15:08 Hep B, unspecified formulation 8 completed MD Kane Galeano [address], [place], [address], [facility] 06/12/2023 16:15:08 Hep A, adult 8 completed Ashlee Doyle MD [address] [facility] [address], [place], [address], [facility] 06/12/2023 16:15:08 Past Encounters Encounter ID Performer Location Encounter Start Date Encounter Closed Date Diagnosis/Indication Diagnosis SNOMED-CT Code Diagnosis ICD10 Code Diagnosis IMO Codes Diagnosis Note [id number] Ashlee Doyle MD [facility], [facility] [address] [facility] [address] [place] [address] 07/09/2025 11:34:48 07/09/2025 12:47:12 Benign hypertension 70165635 I10 - good control- BP 2 weeks- seen ophth 06/2025 per pt- last EKG 04/02/25 Congestive heart failure 49118172 I50.9 - last ECHO 10/2023 , EF 45%- resolved Paroxysmal atrial fibrillation 615901855 I48.0 - cardiology had holter ,- anita score 4-5- anticoagul ation safty education Peripheral vascular disease 586233970 I73.9 - per cardiology note 01/21/23 Carotid ar petar stenosis 64335636 I65.29 - last U/S 10/12/22 per pt Mixed hyperlipidemia 267 674786 E78.2 - last LDL 10/23/24 Neck pain 44147534 M54.2 40516 Prediabetes 767174164 R7 3.03 - last A1c 04/16/25 Body mass index less than 20 408875613 Z68.1 education Vitamin B deficiency 479 98683 E53.9 b12 06/21/23 Hypomagnesemia 007831055 E83.42 - last level 04/16/25 Anemia 663083843 D64.9 Screening mammography 24 566035 Z12.31 3921441871 per pt had mammogram 04/16/25 Screening for malignant neoplasm of cervix 054410585 Z12.4 932372 per pt had PAP 06/2023 Screening for malignant neoplasm of colon 886290321 Z12.11 932761 last C scope 11/06/13 , no polyp Immunization due 5077615 08 Z23 0314073 up to date Health Concerns Section Related Observation LastModified by Organization Detai ls LastModified Time None Recorded Concern Status LastModified by Organization Details LastModified Time None Recorded Payers Encounter Date Sequence Insurance Name Policy Number Policy Tai Covered Member ID Tai Member ID Guarantor Name 07/09/2025 2 [place] 104 Agustina Cordova [id number] Agustina Cordova 07/09/2025 1 [place] Agustina Cordova [id number] Agustina Cordova Notes Date Note Type [...] with exertion, andno headache. Ashlee Doyle MD [address] [facility] [address], [place], [address], [facility] 07/09/2025 12:40:58 OBGyn Episode No OBEpisode recorded.
--- OUTSIDE RECORDS SUMMARY | 2025-08-23 21:07 | XMS_ITS | Clinical Summary ---
Author Organization [facility] Address [address] [place] [address] Care Team Providers Care Space Studies Faculty Member Name Role Phone Miscellaneous, Not In File Unavailable Unava ilable Sheryl Latham MD Unavailable [phone] Ashlee Doyle MD Primary Care Provider [phone] Jonh Junior MD Unavailable Allergies Active Allergy [...] ready for that. -home spironolactone, -02/21 BNP >23952, ordered Cardio c/s, TTE, Trop, EKG, tele [...] stable from prior notes from [facility] - Fundus exam and photos appear stable [...] should continue to monitor with her general manager food Assessment & Plan (04/01/2022 3:54 PM CDT): [...] (ERM) peel right eye (OD) 2007 at [facility]. Asked patient to bring notes or forward prior to next visit. Follows with Dr. Izaguirre at [facility]. Will have second opinion with [facility] next available per patient request. [...] PM CDT): -chronic since 2020, following with green energy marketing analyst and Endocrinology,not on home meds, encouraging fluid [...] exertion 06/06/2018 Coronary artery disease invo lving [place] coronary artery of [place] heart without angina pectoris 06/06/2018 Assessment & [...] Encounters Date Type Department Care Team Description 08/21/2025 Telephone [facility] Medicine Cardiology [facility] [facility] 8th [place] [address] [place] [address] Jonh Junior MD 06/30/2025 Results Follow-Up [facility] [address] [facility] Floor 1, [address] [place] [address] Jonh Junior MD Pulmonary Function Test - 06/21/2025 Telephone [facility] [address] [facility] 8th [place] [address] [place] [address] Jonh Junoir MD 06/20/2025 11:45 AM CDT Office Visit [facility] Medicine Oncology [address] [facility] Floor 6 [place] [address] Yulia Nolasco, ARMOND 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) 06/20/2025 11:15 AM CDT Lab [facility] - Lab Collection [address] [facility] Floor 6 [place] [address] 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) 06/20/2025 10:45 AM CDT Lab [facility] Medicine Oncology Lab [address] [facility] Floor 6 [place] [address] 06/20/2025 Telephone [facility] [address] [facility] 8th [place] [address] [place] [address] Kevin Aliza 06/19/2025 Telephone [facility] [address] [facility] 8th [place] [address] [place] [address] Jonh Junior MD 06/17/2025 11:45 AM CDT Office Visit [facility] Medicine Cardiology [address] [facility] Floor 1, [address] [place] [address] Jonh Junior MD 06/17/2025 9:46 AM CDT - 06/17/2025 11:59 PM CDT Hospital Encounter [facility] Medicine PFT Lab [address] [facility] Floor 1, [address] [place] [address] Ischemic cardiomyopathy; Essential hypertension; On amiodarone therapy Discharge Disposition: Discharge to home or self care from Last 3 Months Immunizations Immunization Administration Dates Next Due COVID-19 mRNA ([employer]) 0.3 m L (30 mcg) vaccine (12 [...] on file Legal Sex Female 2:10 AM PHARMACIST Gender Identity Not on file Sexual Orientation [...] LAB BLOOD ORDERABLES Final Re sult [facility] [place] [address] * (ABNORMAL) Differential, auto (06/20/2025 11:29 AM CDT) Pathologist [facility] Neutrophil abs 3.79 1.50 - 6.50 K/cumm Comment:Testing performed by : [facility], [address] [place] [phone] Lymphocyte abs 1.88 0.80 - 3.30 K/cumm BENJAMIN SETH Comment:Testing performed by : [facility], [address] [place] [phone] Monocyte abs 0.97(H) 0.20 - 0.80 K/cumm [facility] Comment:Testing performed by : [facility], [address] [place] [phone] Eosinophil abs 0.13 0.00 - 0.50 K/cumm [facility] Comment:Testing performed by : [facility], [address] [place] [address] Basophil abs 0.05 0.00 - 0.10 K/cumm [facility] Comment:Testing performed by : [facility], [address] [place] [phone] Neutrophil pct 55.6 % [facility] Comment: Interpretive Data Percent cell count reference ranges are not reported, since discordance with absolute values may lead to misinterpretation of CBC data. Current Interpretive Data was last revised on 2017. Testing performed by: [facility], [address] [place] [address] Lymphocyte pct 27.6 % CERNER [facility] Comment: Interpretive Data Percent cell count reference ranges are not reported, since discordance with absolute values may lead to misinterpretation of CBC data. Current Interpretive Data was last revised on 2017. Testing performed by: [facility], [address] [place] [phone] Monocyte pct 14.2 % [facility] Comment: Interpretive Data Percent cell count reference ranges are not reported, since discordance with absolute values may lead to misinterpretation of CBC data. Current Interpretive Data was last revised on 2017. Testing performed by: [facility], [address] [place] [phone] Eosinophil pct 1.8 % [facility] Comment: Interpretive Data Percent cell count reference ranges are not reported, since discordance with absolute values may lead to misinterpretation of CBC data. Current Interpretive Data was last revised on 2017. Testing performed by: [facility], [address] [place] [phone] Basophil pct 0.7 % [facility] Comment: Interpretive Data Percent cell count reference ranges are not reported, since discordance with absolute values may lead to misinterpretation of CBC data. Current Interpretive Data was last revised on 2017. Testing performed by: [facility], [address] [place] [phone] Blood 06/20/2025 11:2 9 AM CDT 06/20/2025 11:37 AM CDT us Sheryl Latham MD LAB BLOOD ORDERABLES Final [facility] Department [place] [address] * (ABNORMAL) CBC with auto differential (06/20/2025 11:29 AM CDT) WBC 6.81 3.80 - 9.90 K/cumm Comment:Testing performed by : [facility], [address] [place] [address] Hgb 8.4(L) 11.9 - 15.5 g/dL [facility] Comment:Testing performed by : [facility], [address] [place] [address] Hct 26.3(L) 35.6 - 45.5 % [facility] Comment:Testing performed by : [facility], [address] [place] [address] Plt 180 150 - 400 K/cumm C[facility]ER [facility] Comment:Testing performed by : [facility], [address] [place] [address] MPV 6.9 6.8 - 10.4 fL [facility] Comment:Testing performed by : [facility], [address] [place] [address] RBC 3.22(L) 3.90 - 5.20 M/cumm CERAKHIL [facility]J Comment:Testing performed by : [facility], [address] [place] [address] MCV 81.5 81.3 - 96.4 fL [facility] Comment:Testing performed by : [facility], [address] [place], [place] [phone] MCH 25.9(L) 27.1 - 33.3 pg [facility]ER [facility] Comment:Testing performed by : [facility], [address] [place], [place] [phone] MCHC 31.8(L) 32.3 - 35.7 g/dL CERAKHIL [facility]J Comment:Testing performed by : [facility], [address] [place], [place] [phone] RDW CV 15.3(H) 11.1 - 14.9 % CERNER [facility] Comment:Testing performed by : [facility], [address] [place], [place] [phone] NRBC abs 0.00 0.00 - 0.01 K/cumm [facility] Comment:Testing performed by : [facility], [address] [place], [place] [phone] Blood 06/20/2025 11:2 9 AM CDT 06/20/2025 11:37 AM CDT Sheryl Latham MD LAB BLOOD ORDERABLES Final Re sult Performing Organization Address City/[facility]/ZIP Co de Phone Number [facility] Department [place] [address] * Lactate dehydrogenase (LD) (06/20/2025 11:29 AM CDT) Pathologist [facility] Lactate dehydrogenase (LDH) 221 100 - 250 Units/L Blood 06/20/2025 11:2 9 AM CDT 06/20/2025 11:37 AM CDT Sheryl Latham MD LAB BLOOD ORDERABLES Final Re sult Performing Organization Address City/[facility]/ZIP Co de Phone Number [facility] [place] [address] * (ABNORMAL) Comprehensive metabolic panel (06/20/2025 11:29 AM CDT) Sodium 136 135 - 145 mmol/L Potassium, pl 4.8 3.3 - 4.9 mmol/L [facility] Chloride 102 97 - 110 mmol/L [facility] CO2 25 22 - 32 mmol/L [facility] Anion gap 9 2 - 15 mmol/L [facility] BUN 23 6 - 25 mg/dL [facility] Creatinine 1.16(H) 0.60 - 1.10 mg/dL [facility] Glucose 86 70 - 199 mg/dL [facility] Comment: Interpretive Data Fasting glucose >/= [...] Calcium 9.1 8.5 - 10.3 mg/dL [facility] Bilirubin, total 0.2 0.1 - 1.2 mg/dL [facility] Protein, pl 6.3(L) 6.5 - 8.5 g/dL [facility] Albumin 4.1 3.5 - 5.0 g/dL [facility] Alk phos 77 40 - 130 Units/L [facility] ALT 11 7 - 45 Units/L [facility] AST 20 10 - 45 Units/L [facility] Blood 06/20/2025 11:2 9 AM CDT 06/20/2025 11:37 AM CDT us Sheryl Latham MD LAB BLOOD ORDERABLES Final Re sult [facility] Department [place] [address] * Pulmonary Function Test - (06/17/2025 10:31 AM CDT) FVC PRE 2.11 L [facility] FVC %PRE PRED 88 % [facility] FEV1 PRE 1.38 L [facility] FEV1 %PRE PRED 77 % [facility] FEV1/FVC PRE 65.3 % [facility] FRC PL PRE 2.72 L [facility] FRC PL %PRE PRED 94 % [facility] RV PRE 1.78 L [facility] RV %PRE PRED 70 % [facility] TLC PRE 3.91 L [facility] TLC %PRE PRED 78 % [facility] DLCO PRE 11.2 ml/min/mmH g [facility] DLCO %PRE PRED 63 % [facility] Anatomical Region Laterality Modality PFT 06/17/2025 9:53 AM CDT Narrative 06/20/2025 6:37 PM CDT halfway amiodarone therapy, pft's for toxicity surveillance PFT performed at:->[facility] PUL PFT [id number] Procedure:->Standard Procedure:->Spirometry with [...] and %HbO2 is age dependent. However, the [facility] Pulmonary Function Laboratory defines hypoxemia as a PaO2 <56 mm Hg or a %HbO2 <89%. Starting on September of 2024 the [facility] Pulmonary Function Laboratory utilizes race neutral GLI Global normative equations. Jonh Junior MD PFT ORDERABLES Final Result * BONE MINERAL DENSITY (04/05/2017) Anatomical Region Laterality Modality Radiographic Christi ging Narrative 04/05/2017 Ordered by an unspecified provider. Historical Provider IMDelfina DXA PROCEDURES Final Result from Last 3 Months or Most Recently Relevant to Health Maintenance Insurance [facility] MEDICARE [facility] FEDERAL MEDICARE ANTHEM ACCESS CHOICE ANTHEM ACCESS MEDICARE [facility] Advance Directives For more information, please contact: [phone] * Full Code (Latest Code Status on [...] 4:54 AM 03/24/2021 6:20 PM Care Teams Space Studies Faculty Member Relationship Specialty Start Date End Date Ashlee Doyle MD [address] [place] [address] PCP - General Internal Medicine 09/05/23 Miscellaneous, Not In File 03/24/21 Sheryl Latham MD Medical Oncologist/Latin Dance Instructor Medical Oncology 05/12/21 Jonh Junior MD [address] [place] [address] Referring Physician Cardiology 09/05/23
--- OUTSIDE RECORDS SUMMARY | 2025-08-23 21:07 | XMS_ITS | Clinical Summary ---
Author Organization [employer] [facility] Address [address] [place] [address] Care Team Providers Care Test Deskman Name Role Phone No, Pcp FIRE LOSS PREVENTION ENGINEER Primary Care Provider Unavailabl e Allergies Active Allergy Reactions Criticality Noted Date Comments Sulfa (Sulfonamide Antibiotics) 09/2021 Medications fluticasone propionate (FLONASE) 50 mcg/actuation nasal spray Instill as needed as directed Indications: inflammation of the nose due to an allergy Active apixaban (Eliquis) 2.5 mg tab Take one twice daily Indications: treatment to prevent blood clots in chronic atrial fibrillation Active rosuvastatin (CRESTOR) 5 MG tablet Take one daily Indications: high cholesterol 01/27/20 22 Active timolol (TIMOPTIC) 0.5 % ophthalmic solution Instill daily as directed Indications: Eye Condition 12/13/19 22 Active cetirizine (ZyrTEC) 10 MG tablet Take one daily Indications: inflammation of the nose due to an allergy Active omeprazole (PriLOSEC) 20 MG capsule Take one as needed Indications: gastroesophageal reflux disease Active acetaminophen (TYLENOL) 500 MG tablet Take one as needed Indications: pain 06/17/20 22 Active amLODIPine (NORVASC) 2.5 MG tablet Take one daily Indications: high blood pressure 02/23/20 23 Active magnesium 200 mg tab Take one a few times a week Indications: Vitamins 01/28/20 23 Active diclofenac sodium 1 % gel Apply as needed as directed Indications: Pain 02/08/20 23 Active Social History Tobacco Use Types Packs/Day Years Used Date Smoking Tobacco: Never Assessed PCARE Exercise SDOH Answer Date Recorde d Exercise Aerobic 07/20/2022 PCare Exercise SDOH Not on file 07/20/2022 PCare Exercise SDOH Not on file 07/20/2022 PCARE Alcohol SDOH Answer Date Recorded PCare Alcohol SDOH Not on file 07/20/2022 Alcohol No 07/20/2022 PCare Alcohol SDOH Not on file 07/20/2022 Comments Unknown Sex and Gender Information Value Date Recorded Sex Assigned at Not on file Legal Sex Female 5:44 PM EDT Gender Identity Not on file Sexual Orientation Not on file Plan of Treatment Not on file Medical Devices Not on file Care Teams Test Deskman Relationship Specialty Start Date End Date No, Pcp, FIRE LOSS PREVENTION ENGINEER N/A Do not use PCP - General Family Medicine 05/12/20
--- OUTSIDE RECORDS SUMMARY | 2025-08-23 21:08 | XMS_ITS | Encounter Summary ---
Author Organization [facility] Address [address] [place] [address] Care Team Providers Care Manager Lvn Name Role Phone Ashlee Doyle MD Primary Care Provider [phone] Randi Barney MD Unavailable [phone] Miscellaneous, Not In File Unavailable Unava ilable Sheryl Latham MD Unavailable Jonh Junior MD Primary Care Provide r Ashlee Doyle MD Primary Care Provider [phone] Jonh Junior MD Unavailable Encounter Details Date Type Department Care Team (Late st Contact Info) Description 03/31/2021 Telephone [facility] [address] [place] [address] Kindra Mir, RT Social History Tobacco Use Types Packs/Day Years Used Date Smoking Tobacco: Never Smokeless Tobacco: Never Alcohol Use Standard Drinks/Week Comments Yes 0 (1 standard drink = 0.6 oz pur e alcohol) Comments No Sex and Gender Information Value Date Recorded Sex Assigned at Not on file 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 Gender Identity Not on file Sexual [...] documented as of this encounter Care Teams Manager Lvn Relationship Specialty Start Date End Date Ashlee Doyle MD [address] [place] [address] PCP - General 02/09/18 08/24/23 Jonh Junior MD PCP - General Cardiology 08/25/23 09/04/23 Ashlee Doyle MD [address] [place] [address] PCP - General Internal Medicine 09/05/23 Randi Barney MD [address] [place] [address] Referring Physician Cardiology 03/12/21 08/24/23 Miscellaneous, Not In File 03/24/21 Sheryl Latham MD Medical Oncologist/Data Warehouse Manager Medical Oncology 05/12/21 Jonh Junior MD Referring Physician Cardiology 09/05/23 documented as of this encounter
--- OUTSIDE RECORDS SUMMARY | 2025-08-23 21:08 | XMS_ITS | Encounter Summary ---
Author Organization [facility] Address [address] [place] [address] Care Team Providers Care Whiting Machine Operator Name Role Phone Olivia Foss MD Primary Care Provider Unavailable Encounter Details Date Type Department Care Team (Late st Contact Info) Description 02/19/2020 Lab Requisition [facility] [address] [facility] [place] [address] Yumiko Dykes MD [address] 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 Gender Identity Not on file Sexual Orientation Not on file documented as of this encounter Plan of Treatment Not on file documented as of this encounter Procedures Procedure Name Priority Date/Time Associated Diagnosis Comments DERMATOPATHOLOGY Routine 02/18/2020 12:0 0 AM CDT documented in this encounter Results * DERMATOPATHOLOGY (02/18/2020 12:00 AM CDT) Case Report Dermatopathology Report Case: [id number] Authorizing Provider: Yumiko Dykes MD Collected: 02/18/2020 12:00 AM Ordering Location: [facility] Received: 02/19/2020 08:29 AM [...] specimen consists of a shave biopsy measuring [id number], bisected. Jar 0+. 0 2:31 PM CDT [...] characteristic determined by the Dermatopathology Laboratory at [facility], directed by Dr. Kwame Agrawal. These tests need not be, and therefore are not, approved by the [place] Food and Drug Administration. The tests are used for clinical purposes. Billing Codes Specimen Charges Stain Charges 46445 1 0 2:31 PM CDT DERMATOPATHOLOGY LABORATORY Embedded Images 0 2:31 PM CDT DERMATOPATHOLOGY LABORATORY Pathology/Cytolog y TISSUE SPECIMEN FROM SKIN / Unknown 02/18/2020 02/19/2020 8:29 AM CDT us Yumiko Dykes MD LAB - PATHOLOGY/CYTOLOGY ORD ERABLES Final Result DERMATOPATHOLOGY LABORATORY [facility] - Department of Dermatology [facility]/[address] [address], [facility] [phone] documented in this encounter Visit Diagnoses Not on filedocumented in this encounter Care Teams Whiting Machine Operator Relationship Specialty Start Date End Date Olivia Foss MD PCP - General 02/05/19 documented as of this encounter
--- OUTSIDE RECORDS SUMMARY | 2025-08-23 21:08 | XMS_ITS | Clinical Summary ---
Author Organization [facility] Address [address] [place] [address] Care Team Providers Care Fisher Trap Name Role Phone Olivia Foss MD Primary Care Provider Unavailable Source Comments [facility],non-owned Affiliates and Associated Physician Practices is amultiple site organization consisting of ambulatory clinics and hospital sitesin [place], [place], [place] and [place]. This disclosure is being madepursuant to the Care Everywhere program and may not contain all information available regarding this patient. Last updated 18.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
--- OUTSIDE RECORDS SUMMARY | 2025-08-23 21:08 | XMS_ITS | Clinical Summary ---
Author Organization [facility] Address [address] [place] [address] Care Team Providers Care Emergency Dept Tech Name Role Phone Ashlee [place] MD Primary Care Provider [phone] Melvin Pedraza MD Unavailable Allergies Active Allergy [...] exertion 06/06/2018 Coronary artery disease invo lving [place] coronary artery of [place] heart without angina pectoris 06/06/2018 Carotid bruit [...] Td 06/19/2016 Tdap (Generic) 11/10/2012 Zoster (Zostavax) [address] Unt/0.65Ml 03/29,09/21/2018,09/19/2013,2009 Family History Medical History Relation [...] on file Legal Sex Female 1:30 PM SOIL ANALYST Gender Identity Not on file Sexual Orientation Not on file Last Filed Vital Signs Vital Sign Reading Time Taken Comments Blood Pressure 140/62 08/21/2020 1:18 PM SOIL ANALYST Pulse 97 08/21/2020 1:18 PM SOIL ANALYST Temperature - - Respiratory Rate - - Oxygen Saturation - - Inhaled Oxygen Concentration - - Weight 67.5 kg (148 lb 12.8 oz) 08/21/2020 1:18 PM SOIL ANALYST Height 165.1 cm (5' 5) 08/21/2020 1:18 PM SOIL ANALYST Body Mass Index 24.76 08/21/2020 1:18 PM SOIL ANALYST Plan of Treatment Health Maintenance Due Date [...] file Type:Indemnity Address: ATTN CLAIMS [address] MEDICARE Care Teams Emergency Dept Tech Relationship Specialty Start Date End Date Ashlee [place] MD PCP - General INTERNAL MEDICINE 02/18/20 Melvin Pedraza MD [address] [address] Referring Physician VASCULAR SURGERY 02/18/20
--- OUTSIDE RECORDS SUMMARY | 2025-08-23 21:08 | XMS_ITS | Data Portability ---
Author Organization [facility], [employer] Address [address] [address] Care Team Providers Care Machine Stacker Name Role Phone ASHLEE DOYLE Primary Care [...] Appointments ESTABLISH ED PATIENT 15 2025 10:30A Oanh Doyle MD Not available Not available Not available Lab lipid panel w/ direct LDL, serum 2024 025 [facility], [address] [place], [address], 07/23/2025 05:34:31 CMP, serum or plasma 2024 025 [facility], [address] [place], [address], 07/23/2025 05:34:31 CBC w/ auto diff 2024 025 [facility], [address] [place], [address], 07/23/2025 05:34:31 iron panel, serum or plasma 2024 025 [facility], [address] [place], [address], 07/21/2025 17:43:33 vitamin B12 + folate, serum or blood 2024 025 [facility], [address] [place], [address], 07/21/2025 17:43:33 pro BNP (pro B-type natriuret ic peptide), serum or plasma 2024 025 [facility], [address] [place], [address], 07/21/2025 17:43:32 HbA1c (hemoglob in A1c), blood 2024 025 [facility], [address] [place], [address], 04/16/2025 17:51:03 C-peptide , serum 2024 025 [facility], [address] [place], [address], 04/17/2025 11:48:45 magnesium , QN, serum or plasma 2024 025 [facility], [address] [place], [address], 07/23/2025 13:25:56 TSH, serum or plasma 2024 025 [facility], [address] [place], [address], 04/16/2025 17:51:03 pro BNP (pro B-type natriuret ic peptide), serum or plasma 2024 025 [facility], [address] [place], [address], 04/02/2025 12:40:39 CMP, serum or plasma 2024 025 [facility], [address] [place], [address], 04/16/2025 17:51:03 CBC w/ auto diff 2024 025 [facility], [address] [place], [address], 07/23/2025 13:25:56 iron panel, serum or plasma 2024 025 [facility], [address] [place], [address], 04/16/2025 17:51:03 urinalysi s, dipstick 2024 025 [facility], [facility], [address] [place] [address] , [place] [address], [place], [address], 04/02/2025 13:25:36 vitamin B12 + folate, serum or blood 2024 025 [facility], [address] [place], [address], 04/16/2025 17:51:03 vitamin B12 + folate, serum or blood 2024 025 [facility], [address] [place], [address], 10/23/2024 14:39:51 magnesium , QN, serum or plasma [email or web address] [facility], [address] [place], [address], 12/31/2024 15:32:57 CMP, serum or plasma 2024 025 [facility], [address] [place], [address], 10/23/2024 14:39:51 CBC w/ auto diff 2024 025 [facility], [address] [place], [address], 10/23/2024 20:59:59 hemoglobi n A1c, QN, blood 2024 025 [facility], [address] [place], [address], 10/23/2024 20:59:59 lipid panel w/ direct LDL, serum 2024 025 [facility], [address] [place], [address], 10/23/2024 14:39:51 TSH, serum or plasma [address] Out[facility], [address] [place], [address], 12/31/2024 15:32:57 pro BNP (pro B-type natriuret ic peptide), serum or plasma 2024 025 [facility], [address] [place], [address], 10/23/2024 20:59:59 iron panel, serum or plasma 2024 025 [facility], [address] [place], [address], 10/23/2024 20:59:59 CMP, serum or plasma 2023 024 [facility], [address] [place], [address], 06/25/2024 04:09:57 magnesium , QN, serum or plasma 2023 024 [facility], [address] [place], [address], 06/25/2024 04:09:57 CBC w/ auto diff - 8 weeks from 04/17/242023 024 [facility], [address] [place] [address], [address], 05/16/2024 14:00:39 iron panel, serum or plasma - 8 weeks from 04/17/242023 024 [facility], [address] [place] [address], [address], 04/25/2024 04:05:03 Referral pain managemen t referral 2024 025 MIGUE Palm MD, [address] [facility], [place], [address], 04/02/2025 16:31:16 Procedures None recorded. Surgeries None recorded. Imaging XR, cervical spine, 2 or 3 view 2024 025 [facility] ([facility]), [address] [place], [address], 07/19/2025 12:24:31 US, duplex, carotid artery 2024 025 [facility], [facility], [address], [place], [address], 07/09/2025 17:47:54 MAMMO, screening , digital, bilateral 2024 025 [facility] ([facility]), [address] [place], [address], 04/27/2025 18:51:03 electroca rdiogram 2024 025 [facility], [facility], [address], [place], [address], 04/02/2025 13:16:02 US, duplex, carotid artery 2024 025 [facility], [facility], [address], [place], [address], 04/02/2025 14:12:06 CT, chest + abdomen + pelvis, w/o contrast 2024 025 [facility] ([facility]), [address] [place], [address], 10/23/2024 16:36:21 XR, chest, 2 view 2024 025 [facility] ([facility]), [address] [place], [address], 10/23/2024 16:48:57 XR, chest, 2 view - 6 weeks from 04/07/242023 024 [facility] ([facility]), [address] [place], [address], 05/16/2024 13:44:01 Medication Orders polysacch aride iron complex 150 mg iron capsule 2024 025 [facility] [address] In [facility], [address] [place] [address], [address], 07/09/2025 12:37:22 cyanocoba reggie (vit B-12) 1,000 mcg sublingua l tablet 2024 025 [facility] [address] In [facility], [address] [place] [address], [address], 07/09/2025 12:37:22 acetamino phen 500 mg tablet 2024 025 [facility] [address] In [facility], [address] [place] [address], [address], 04/02/2025 12:38:39 Tylenol Extra Strength 500 mg tablet 2024 025 [facility] [address] In [facility], [address] [place] [address], [address], 04/02/2025 12:38:39 Aspercrem e (lidocain e HCl) 4 % topical 2024 025 [facility]IGUEGUERO [facility] [address], [address], 07/09/2025 12:26:45 Creon 24,000-76 ,000-120, 000 unit capsule,d elayed release 2024 025 [facility] [address], [address], 11/07/2024 13:12:54 Eliquis 2.5 mg tablet 2024 025 [facility] [address], [address], 10/08/2024 12:13:09 triamcino lone acetonide 0.1 % topical cream 2023 024 [facility] [address], [address], 06/18/2024 12:41:20 Eliquis 2.5 mg tablet 2023 024 eladia LIZARRAGA [address], [address], 06/18/2024 12:41:17 fluconazo le 100 mg tablet 2023 024 [facility] [address], [address], 06/14/2024 18:22:20 ferrous sulfate 300 mg (60 mg iron)/5 mL oral liquid 2023 024 eladia LIZARRAGA [address], [address], 06/14/2024 18:22:14 Patient TargetsNo targets recorded. Patient Instructions Encounter Date Encounter Id Patient Instructions Last Modified By Organization Details Last Modified Time 04/18/2024 [id number] pneumonia: care instructions mshenouda Not available 04/18/2024 12:31:54 vaginal yeast infection: care instructions mshenouda Not available 04/18/2024 12:31:54 iron deficiency anemia: care instructions mshenouda Not available 04/18/2024 12:31:54 heart failure: care instructions mshenouda Not available 04/18/2024 12:31:54 learning about heart failure mshenouda Not available 04/18/2024 12:31:54 06/18/2024 [id number] learning about swallowing problems mshenouda Not available 06/18/2024 12:41:18 mammogram: about this test mshenouda Not available 06/18/2024 12:41:18 heart failure: care instructions mshenouda Not available 06/18/2024 12:41:18 learning about heart failure mshenouda Not available 06/18/2024 12:41:18 10/08/2024 [id number] mammogram: about this test mshenouda Not available 10/08/2024 12:13:06 high cholesterol : care instructions mshenouda Not available 10/08/2024 12:13:06 carotid stenosis : care instructions mshenouda Not available 10/08/2024 12:13:05 iron deficiency anemia: care instructions mshenouda Not available 10/08/2024 12:13:06 04/02/2025 [id number] learning about swallowing problems mshenouda Not available [...] available 04/02/2025 12:38:35 kegel exercises: care instructions [facility] Not available 04/02/2025 12:38:36 Stress Incontinence: Care [...] lasted for a duration of _2__ minutes. [facility] Not available 04/02/2025 12:41:49 07/09/2025 [id number] Peripheral Arterial Disease (PAD): Care Instructions mshenouda Not available 07/09/2025 12:37:17 (RANGEL) ankle brachial index* MIGUE Not available 07/09/2025 17:47:49 mammogram: about this test [facility] Not available 07/09/2025 12:37:17 neck pain: care [...] Not Available 08/13/2025 13:39:19 08/05/20 25 08/05/2025 iron + total iron- jesse ng capac ity (TIBC ), serum iron-binding capacity, unsaturated, serum 457 ug/dL low: 155ug/ dLhigh : 355ug/ dL high Not Available Not Available 08/13/2025 13:39:19 08/05/20 25 08/05/2025 iron + total iron- jesse ng capac ity (TIBC ), serum TIBC (total iron-binding capacity), serum 477 ug/dL low: 261ug/ dLhigh : 478ug/ dL Not Available Not Available 08/13/2025 13:39:19 08/05/20 25 08/05/2025 iron + total iron- jesse ng capac ity (TIBC ), serum iron saturation, serum 4 % low: 20%hig h: 50% low Not Available Not Available 08/13/2025 13:39:19 08/05/2008/05/2025 iron + total iron- jesse ng capac ity (TIBC ), serum no coding or coding display name was found Releas e to patien t->Imm ediate Not Available Not Available 13:39:19 08/05/20 25 08/05/2025 iron + total iron- jesse ng capac [...] platelets, auto, blood 192 10*3/ uL low: 75424* 3/uLhi gh: 25532* 3/uL Not Available Not Available 08/13/2025 13:39:19 [...] 95fL Not Available Not Available 08/13/2025 13:39:19 08/05/2008/05/2025 CBC w/ auto diff [facility], qn, automated [...] 08/13/2025 13:39:19 08/05/2008/05/2025 CBC w/ auto diff neutrophils/ 100 leukocytes, [...] 12.1% Not Available Not Available 08/13/2025 13:39:19 08/05/20 25 08/05/2025 CBC w/ auto diff eosinophils/ 100 leukocytes, [...] 3/uL Not Available Not Available 08/13/2025 13:39:19 08/05/20 25 08/05/2025 CBC w/ auto diff lymphocytes, quantitative , blood, automated count (obs) 1.7 10*3/ uL low: 0.810* 3/uLhi gh: 410*3/ uL Not Available Not Available 08/13/2025 13:39:19 08/05/20 25 08/05/2025 CBC w/ auto diff monocytes, count, automated, blood (obs) 0.6 10*3/ uL low: 0.210* 3/uLhi gh: 1.210* 3/uL Not Available Not Available 08/13/2025 13:39:19 08/05/20 25 08/05/2025 CBC w/ auto diff eosinophils, auto, blood, absolute 0.1 10*3/ uL low: 010*3/ uLhigh : 0.410* 3/uL Not Available Not Available 08/13/2025 13:39:19 08/05/20 25 08/05/2025 CBC w/ auto diff basophils, quant, auto, blood (obs) 0.1 10*3/ uL low: 010*3/ uLhigh : 0.110* 3/uL Not Available Not Available 08/13/2025 13:39:19 08/05/2008/05/2025 CBC w/ auto diff lab interpretati on Abnorm al Not Available Not Available 13:39:19 08/05/2008/06/2025 vitam in B12, serum vitamin B12, serum 209 pg/mL low: 180pg/ mLhigh : 914pg/ mL Not Available Not Available 08/13/2025 13:39:19 08/05/20 25 08/06/2025 vitam in B12, serum no coding or [...] t->Imm ediate Not Available Not Available 13:39:19 08/05/2008/06/2025 hapto globi n, serum hapto 176 mg/dL low: 44mg/d Lhigh: 215mg/ dL Not Available Not Available 08/13/2025 13:39:19 08/05/2008/06/2025 hapto globi n, serum no coding or coding display name was found Releas e to patien t->Imm ediate Not Available Not Available 13:39:19 08/05/2008/06/2025 cassius tin, serum or plasm a ferritin, serum or plasma 17 NG/mL low: 11NG/m Lhigh: 307NG/ mL Not Available Not Available 08/13/2025 13:39:18 08/05/20 25 08/06/2025 cassius tin, serum or plasm a no coding or coding display name was found Releas e to patien t->Imm ediate Not Available Not Available 13:39:18 [...] 1mg/dL Not Available Not Available 08/13/2025 13:39:18 08/05/20 25 08/05/2025 CMP, serum or plasm a alkaline phosphatase, [...] low Not Available Not Available 08/13/2025 13:39:18 08/05/20 25 08/05/2025 CMP, serum or plasm a albumin, qn, bcg dye, serum or plasma 4.1 g/dL low: 3.5g/d Lhigh: 5.7g/d L Not Available Not Available 08/13/2025 13:39:18 08/05/2008/05/2025 CMP, serum or plasm a calcium, serum or plasma 9 mg/dL low: 8.6mg/ dLhigh : 10.3mg /dL Not Available Not Available 08/13/2025 13:39:18 08/05/20 25 08/05/2025 CMP, serum or plasm a anion gap 4, serum or plasma (obs) 13.2 text: 7.0 - 15.0 mEq/L Not Available Not Available 08/13/2025 13:39:18 08/05/2008/05/2025 CMP, serum or plasm a globulin, qn, calculated, serum 1.8 g/dL low: 2g/dLh igh: 3.5g/d L low Not Available Not Available 08/13/2025 13:39:18 08/05/20 25 08/05/2025 CMP, serum or plasm a eGFR 48 [...] 2 view No observ ation record ed. [place] [id number] [facility] [address], [place], [address], 04/18/2024 12:11:50 04/05/20 24 04/05/2024 XR, chest , 2 view No observ ation record ed. [place] [id number] [facility] [address], [place], [address], 04/18/2024 12:11:49 05/16/20 24 05/16/2024 XR, chest , 2 view No observ ation record ed. [facility] [address] [place], [address], 06/18/2024 12:28:47 10/23/19 25 10/23/2024 XR, chest , 2 view No observ ation record ed. [facility] [address] [place], [address], 04/02/2025 12:24:33 10/23/19 25 10/23/2024 CT, chest + abdom en + pelvi s, w/o contr ast No observ ation record ed. [facility] [address] [place], [address], 04/02/2025 12:24:33 11/27/19 25 11/26/2024 US, liver No observ ation record ed. [facility] [address] [place], [address], 04/02/2025 12:24:33 01/16/20 25 01/15/2025 XR, hip, bilat eral No observ ation record ed. [facility] [address], [place], [address], 04/02/2025 12:24:33 02/18/20 25 02/16/2025 XR, chest , 2 view No observ ation record ed. [facility] ([facility]) [address] [place], [address], 04/02/2025 12:24:33 04/02/20 25 04/02/2025 elect rocar diogr am No observ ation record ed. [facility], [place] [address], [place], [address], 07/09/2025 12:35:19 04/02/20 25 04/02/2025 US, duple x, carot id arter y No observ ation record ed. [facility], [place] [id number], [place], [address], 07/09/2025 12:35:19 04/02/20 25 04/02/2025 elect rocar diogr am No observ ation record ed. [facility], [place] [address], [place], [address], 07/09/2025 12:35:19 04/27/20 25 04/16/2025 MAMMO , scree aniya, digit al, bilat eral No observ ation record ed. [facility] [address] [place], [address], 07/09/2025 12:35:18 07/09/2007/09/2025 US, duple x, carot id arter y No observ ation record ed. [facility], [facility] [address], [place], [address], 07/09/2025 17:47:54 07/19/2007/19/2025 XR, cervi clay spine , 2 or 3 view No observ ation record ed. [facility] [address] [place], [address], 07/23/2025 13:26:58 08/12/20 25 08/12/2025 XR, chest , 2 view No observ ation record ed. [place] [address], [place], [address], 08/13/2025 10:31:26 Result Notes None recorded. Problems Name Problem SNOMED Code Status Onset Date Resolution Date Notes Provider Name and Address Organization Details Recorded Time Benign hypertens ion 10545584 Active 2016 Not Available [facility] 3 14:49:31 Hyperlipi demia 47551285 Active 2016 Not Available [facility] 14:49:31 Hemorrhoi ds 88706117 Active 2016 Not Available [facility] 14:49:31 Left bundle branch block 05455151 Active 2016 sees cardiolog y once a year Not Available [facility] 14:49:31 Osteopeni a 119935381 Active 2016 Not Available [facility] 3 14:49:31 Osteoarth ritis 590615352 Active 2016 Not Available [facility] 3 14:49:31 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 Not Available [facility] 3 14:49:31 Transient cerebral ischemia 845982861 Active 2016 Not Available [facility] 3 14:49:31 Allergic rhinitis 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 63899709 Active 2016 Not Available [facility] 3 14:49:31 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 164449594 Active 2016 Not Available [facility] 3 14:49:31 Carotid artery stenosis 47944160 Active 2016 Not Available [facility] 3 14:49:31 Focal onset epileptic seizure 65699948 Active 2017 Not Available [facility] 3 14:49:31 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 212649767 Active 2017 Not Available [facility] 3 14:49:31 History of Malignant melanoma 520468185 Active 2018 Not Available [facility] 3 14:49:31 Gastroeso phageal reflux disease without esophagit is 992066325 Active 2018 Not Available [facility] 3 14:49:31 Ophthalmi c migraine 98986231 Active 2018 on ophth note 07/24/19 Not Available [facility] 3 14:49:31 Open-angl e glaucoma of left eye 872651188 Active 2018 on ophth note 07/24/19 Not Available [facility] 3 14:49:31 Idiopathi c periphera l neuropath y 08892268 Active 2019 Not Available [facility] 3 14:49:31 Family history of diabetes mellitus 120699773 Active 2019 Not Available [facility] 3 14:49:31 Neoplasm of supraclav icular region 115783272 Active 2020 Not Available [facility] 3 14:49:31 Hyponatre kasandra 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 2020 Not Available [facility] 3 14:49:31 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, face AND/OR neck 85865862 Active 2020 Not Available [facility] 3 14:49:31 Coronary arteriosc lerosis 41398687 Active 2020 non occlusive per cardiolog y note 06/11/21 Not Available [facility] 3 14:49:31 Paroxysma l atrial fibrillat ion 070719371 Active 2020 Not Available [facility] 3 14:49:31 Diffuse high grade B-cell lymphoma 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 Not Available [facility] 3 14:49:31 Macrocyto sis 343502856 Active 2020 Not Available [facility] 3 14:49:31 History of SARS-CoV- 2 58370496248 8390650 Active 2021 Not Available [facility] 3 14:49:31 Long-term drug therapy Active 2021 Not Available [facility] 3 14:49:31 Increased frequency of urination 013054972 Active 2021 Not Available [facility] 3 14:49:31 Vitamin B deficienc y 71725458 Active 2022 Not Available [facility] 3 14:49:31 Mixed urinary incontine nce 997137050 Active 2022 Not Available [facility] 3 14:49:31 Hypomagne semia 695877354 Active 2022 Not Available [facility] 3 14:49:31 Mixed hyperlipi demia 591670837 Active 2022 Not Available [facility] 3 14:49:31 Insomnia 309488739 Active 2022 Not Available [facility] 3 14:49:31 Periphera l vascular disease 777964177 Active 2022 Ashlee Doyle MD [address], [place], [address] , [place] [facility] 3 11:47:35 Anemia 192857114 Active 2023 MD Kane Galeano [address], [place], [address] , [facility] 4 22:05:29 Body mass index less than 20 828523937 Active 2023 MD Kane Galeano [address], [place], [address] , [facility] 4 11:56:56 Dysphagia 78172558 Active 2023 MD Kane Galeano [address], [place], [address] , [facility] 4 14:14:25 Mild memory disturban ce 374266625 Active 2023 MD Kane Galeano [address], [place], [address] , [facility] 4 13:46:21 Congestiv e heart failure 38984879 Active 2023 MD Kane Galeano [address], [place], [address] , [facility] 4 12:20:10 Iron deficienc y anemia 84493205 Active 2023 MD Kane Galeano [address], [place], [address] , [facility] 4 12:22:31 Left bundle branch block 36769430 Active 2023 MD Kane Galeano [address], [place], [address] , [facility] 4 12:26:56 Stasis dermatiti s 47702273 Active 2023 MD Kane Galeano [address], [place], [address] , [facility] 4 12:34:37 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 Ashlee Doyle MD [address] [facility] [address], [place], [address] , [facility] 4 17:34:02 CT of abdomen abnormal 27055513851 842115 Active 2024 MD Aurelia Galeano[address] [facility] [address], [place], [address] , [facility] 5 20:40:35 Prediabet es 904035789 Active 2024 Dxed by A1c 6.2% on 10/23/24 MD Kane aGleano [facility] [address], [place], [address] , [facility] 5 21:01:29 Primary insomnia 0072537 Active 2024 MD Kane Galeano [facility] [address], [place], [address] , [facility] 5 18:49:04 Problem Notes None recorded. Procedures Surgical History Date Name Laterality Status Provider Name and Address Organization Details Recorded Time Partial Hysterectomy completed MD Kane Galeano [facility] [address], [place], [address], [facility] 05/10/2017 15:03:45 Imaging Results None recorded. Procedure Notes None recorded. Medical Equipment None Reported. Allergies Allergen ID Allergen Name Allergen Category Reaction Reaction Severity Criticality Documentation Date Start Date Code Code System Note Provider Name and Address Organization Details Recorded Time 20891 solifenac in medicatio n dry mouth Not available Not available 10/12/2022 26654 7 RxNorm Not Available [facility] 3 14:49:32 37929 sulfur dioxide medicatio n facial swelling Not available Not available 01/11/2025 38306 79 RxNorm Not Available migue - External Data Service - prod 5 10:56:21 5921 Substance with sulfonami de structure and antibacte rial mechanism of action (substanc e) medicatio n other Not available Not available 05/10/2017 50587 8003 SNOMED buddy Doyle MD [address], [place], [address], [facility] 7 15:03:33 Medications Name Sig Start [...] Updated DateTime 5 167.64 cm 18.9 kg/m2 42483.3 1 g 97.6 [degF] 18 /min 71 /min 101/53 mm[Hg] [facility] 5 11:38:34 Date Recorded Body height Body mass index (BMI) Body weight Heart rate Respiratory rate Body temperature Systolic And Diastolic Provider Name and Address Organization Details Last Updated DateTime 5 167.64 cm 17.9 kg/m2 17456.7 5 g 76 /min 18 /min 98.7 [degF] 115/52 mm[Hg] [facility] 5 11:49:59 Date Recorded Body height Body temperature Body mass index (BMI) Body weight Respiratory rate Heart rate Systolic And Diastolic Provider Name and Address Organization Details Last Updated DateTime 4 167.64 cm 97.5 [degF] 19 kg/m2 49354.9 g 18 /min 69 /min 124/65 mm[Hg] Migdalia [facility] 4 11:49:45 Date Recorded Body height Body temperature Respiratory rate Body mass index (BMI) Body weight Heart rate Systolic And Diastolic Provider Name and Address Organization Details Last Updated DateTime 4 167.64 cm 97.5 [degF] 18 /min 19.4 kg/m2 24044.0 8 g 67 /min 108/59 mm[Hg] Migdalia [facility] 4 12:03:26 Date Recorded Body height Body temperature Body mass index (BMI) Body weight Respiratory rate Heart rate Systolic And Diastolic Provider Name and Address Organization Details Last Updated DateTime 5 167.64 cm 98.7 [degF] 18.2 kg/m2 72816.9 4 g 18 /min 80 /min 128/52 mm[Hg] Migdalia [facility] 5 11:48:39 Social History Question Answer Notes LastModified by Organizat ion Details LastModified Time Tobacco Smoking Status Never Smoker Ashlee Doyle MD [address] [facility] [address], [place], [address], [facility] 05/10/2017 15:11:55 What [...] Of Your Most Recent Tobacco Screening? 07/09/2022 [email or web address] Information not available 07/09/2022 Mother With HIV? [...] quadrivalent, preservative 8 completed Ashlee Doyle MD [address], [place], [address], [facility] 06/12/2023 16:15:07 zoster recombinant 9 completed MD Aurelia Galeano[address] [facility] [address], [place], [address], [facility] 06/12/2023 16:15:07 zoster live 9 completed MD Kane Galeano [address], [place], [place], [address] [place] [address], [facility] 06/12/2023 16:15:08 zoster live 9 completed MD Kane Galeano [address], [place], [address], [facility] 06/12/2023 16:15:08 Influenza, split virus, quadrivalent, preservative 9 completed MD Kane Galeano [address], [place], [address] [place] [address], [facility] 06/12/2023 16:15:07 Influenza, split virus, quadrivalent, preservative 0 completed MD Kane Galeano [address], [place], [address], [facility] 06/12/2023 16:15:07 SARS-COV-2 (COVID-19) vaccine, UNSPECIFIED 1 completed MD Kane Galeano [address], [place], [address], [facility] 06/12/2023 16:15:07 COVID-19, mRNA, LNP-S, PF, 30 mcg/0.3 mL dose 1 completed MD Kane Galeano [address], [place], [address], [facility] 06/12/2023 16:15:07 Influenza, split virus, quadrivalent, preservative 1 completed MD Kane Galeano [address], [place], [address], [facility] 06/12/2023 16:15:07 COVID-19, mRNA, LNP-S, PF, 30 mcg/0.3 mL dose 2 completed MD Kane Galeano [address], [place], [address] [place] [address], [facility] 06/12/2023 16:15:07 Influenza, high-dose, quadrivalent, PF 2 completed MD Kane Galeano [address], [place], [address], [facility] 06/12/2023 16:15:07 Influenza, MDCK, quadrivalent, PF 3 completed MD Kane Galeano [address], [place], [address], [facility] 06/12/2023 16:15:07 RSV, recombinant, protein subunit RSVpreF, adjuvant reconstituted, 0.5 mL, PF 3 completed MD Kane Galeano [address], [place], [address], [facility] 06/12/2023 16:15:07 COVID-19, mRNA, LNP-S, PF, nicole-sucrose, 30 mcg/0.3 mL 3 completed MD Kane Galeano [address], [place], [address], [facility] 06/12/2023 16:15:07 COVID-19, mRNA, LNP-S, PF, nicole-sucrose, 30 mcg/0.3 mL 4 completed MD Kane Galeano [address], [place], [address], [facility] 06/01/2024 14:33:16 COVID-19, mRNA, LNP-S, PF, nicole-sucrose, 30 mcg/0.3 mL 4 completed MD Kane Galeano [address], [place], [address], [facility] 06/01/2024 14:33:16 Influenza, high-dose, trivalent, PF 4 completed MD Kane Galeano [address], [place], [address], [facility] 06/01/2024 14:33:16 COVID-19, mRNA, LNP-S, PF, nicole-sucrose, 30 mcg/0.3 mL 5 completed MD Kane Galeano [address], [place], [address], [facility] 12/26/2024 19:01:03 COVID-19, mRNA, LNP-S, bivalent, PF, 10 mcg/0.2 mL 5 completed Roxnaa moy, [facility] 06/27/2025 14:45:22 influenza, unspecified formulation 5 completed Roxana moy, [facility] 06/27/2025 14:46:36 Pneumococcal conjugate PCV20, polysaccharide [id number] conjugate, adjuvant, PF 5 completed Lashon moy, [facility] 08/03/2025 19:14:26 Td(adult) unspecified formulation 6 completed MD Kane Galeano [address], [place], [address], [facility] 06/12/2023 16:15:07 Influenza, split virus, quadrivalent, preservative 6 completed MD Kane Galeano [address], [place], [address], [facility] 06/12/2023 16:15:07 Influenza, split virus, quadrivalent, preservative 7 completed MD Kane Galeano [address], [place], [address], [facility] 06/12/2023 16:15:07 Pneumococcal conjugate PCV 13 5 completed MD Kane Galeano [address], [place], [address], [facility] 06/12/2023 16:15:08 pneumococcal polysaccharide PPV23 9 completed MD Kane Galeano [facility] [address], [place], [address], [facility] 06/12/2023 16:15:07 zoster live 0 completed MD Kane Galeano [facility] [address], [place], [address], [facility] 06/12/2023 16:15:08 Hep B, unspecified formulation 8 completed MD Kane Galeano [facility] [address], [place], [address], [facility] 06/12/2023 16:15:08 Hep A, adult 8 completed MD Kane Galeano [facility] [address], [place], [address], [facility] 06/12/2023 16:15:08 Past Encounters Encounter ID Performer Location Encounter Start Date Encounter Closed Date Diagnosis/Indication Diagnosis SNOMED-CT Code Diagnosis ICD10 Code Diagnosis IMO Codes Diagnosis Note [id number] Ashlee Doyle MD [employer], [address] [place] [address] 05/10/2017 13:31:26 05/10/2017 15:39:20 Hyperlipidemia 73669055 E78.5 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 [id number] Ashlee Doyle MD [employer] [facility], [place] [address] [place] [address] 08/29/2017 14:57:53 08/29/2017 15:28:41 Benign hypertension 03696798 I10 Hyperlipidemia 22337960 E78.5 Osteoarthritis 297622929 M19.90 Carotid ar petar stenosis 35089176 I65.29 Screening for malignant neoplasm of colon 920336286 Z12.11 last C scope 11/06/13 , good for 10 years [id number] Ashlee Doyle MD [employer], [place] [address] [address] [place] [address] 09/21/2017 10:11:41 09/21/2017 10:59:28 Cough 74401294 R05 Diarrhea 10073996 R19.7 [id number] Ashlee Doyle MD [employer], [address] [place] [address] 11/28/2017 12:38:10 11/28/2017 13:40:04 Adult health examination 288015764 Z00.00 Benign hypertension 1072 5009 I10 good control Hyperlipidemia 56727805 E78.5 recheck Osteopenia 110387575 M85 .80 per pt had DEXA 03/2017 Carotid ar petar stenosis 39455124 I65.29 last U/S 09/22/17 Transient cerebral ischemia 821920240 G45.9 ASA 83 , no recurrence Age relate d macular degeneration 005541176 H35.30 sees ophth every 6 months 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 , asymptomat ic for now Osteoarthritis 217920613 M19.90 Left bundl e branch block 62335787 I44.7 will check EKG Hemorrhoids 22946723 K64 .9 Polyuria 57595966 R35.8 Screening for malignant neoplasm of colon 394706831 Z12.11 last C scope 11/06/13 , good for 10 years Screening mammography 24 789352 Z12.31 per pt had mammogram 01/2017 Screening for malignant neoplasm of cervix 772296455 Z12.4 per pt had PAP 06/2017 [id number] Ashlee Doyle MD [employer], [place] [address] [place] [address] 02/28/2018 13:37:07 02/28/2018 14:29:09 Benign hypertension 82481923 I10 good control Osteopenia 782692741 M85 .80 per pt had DEXA 03/2017 Transient cerebral ischemia 047830026 G45.9 ASA 83 , no recurrence Carotid ar petar stenosis 22766124 I65.29 last U/S 2016 Screening mammography 24 322329 Z12.31 per pt had mammogram 01/2018 Screening for malignant neoplasm of colon 621366293 Z12.11 last C scope 11/06/13 , good for 10 years [id number] Ashlee Doyle MD [employer] [facility] [address] [address] [place] [address] 06/16/2018 12:54:37 06/16/2018 13:53:05 Gastroesophageal reflux disease without esophagitis 523729779 K21.9 Hyperlipidemia 19274377 E78.5 last LDL 11/2017 Sinusitis 57917205 J32.9 Benign hypertension 1072 5009 I10 good control Screening mammography 24 986046 Z12.31 per pt had mammogram 01/2018 Screening for malignant neoplasm of cervix 459378534 Z12.4 per pt had PAP 06/2017 Screening for malignant neoplasm of colon 305514339 Z12.11 last C scope 11/06/13 , good for 10 years Active or passive immunization 404847593 Z23 Carotid ar petar stenosis 46221552 I65.29 last U/S 2015 ., per pt cardiology is repeating [id number] Ashlee Doyle MD [employer] [address] [facility] [address] [place] [address] 10/03/2018 14:57:58 10/03/2018 16:11:48 Benign hypertension 20965838 I10 good control Carotid ar petar stenosis 71072922 I65.29 last U/S 08/10/18 ., per pt cardiology is repeating Transient cerebral ischemia 560323995 G45.9 ASA 81 , no recurrence Vitamin D deficiency 347 65069 E55.9 Gastroesop hageal reflux disease without esophagitis 467322528 K21.9 Sinusitis 89986799 J32.9 Screening mammography 24 128329 Z12.31 per pt had mammogram 01/2018 Screening for malignant neoplasm of cervix 310918462 Z12.4 per pt had PAP 06/2017 Hemorrhoids 26561829 K64 .9 Screening for malignant neoplasm of colon 838303370 Z12.11 last C scope 11/06/13 , good for 10 years Mixed hyperlipidemia 267 284991 E78.2 [id number] Ashlee Doyle MD [employer], [place] [address] [place] [address] 01/05/2019 12:24:53 01/05/2019 13:06:15 Adult health examination 593731607 Z00.01 Benign hypertension 1072 5009 I10 good control Hyperlipidemia 61446780 E78.5 last LDL 01/01/19 Left bundl e branch block 08108311 I44.7 will check EKG Osteopenia 404823101 M85 .80 per pt had DEXA 03/2017 Osteoarthritis 117188623 M19.90 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 66317 I82.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 , asymptomat ic for now Age relate d macular degeneration 317111170 H35.30 sees ophth every 6 months Allergic r hinitis 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 85722781 J30.1 Carotid ar petar stenosis 50534682 I65.29 last U/S 08/10/18 ., per pt cardiology is repeating Focal onse t epileptic seizure 39743930 G40.109 no recurrence Hemorrhoids 99014112 K64 .9 History of Malignant melanoma 886894700 Z85.820 Screening mammography 411236 Z12.31 per pt had mammogram 01/2018 Screening for malignant neoplasm of cervix 256739403 Z12.4 per pt had PAP 06/2017 Screening for malignant neoplasm of colon 010899416 Z12.11 last C scope 11/06/13 , good for 10 years [id number] Ashlee Doyle MD [employer], [employer] [facility] [place] [address] 04/10/2019 11:48:21 04/10/2019 12:24:24 Benign hypertension 16111625 I10 good control Hyperlipidemia 62210927 E78.5 last LDL 01/01/19 Osteopenia 396554265 M85 .80 per pt had DEXA 05/12/2017 Carotid ar petar stenosis 18278453 I65.29 last U/S 08/10/18 ., per pt cardiology is repeating Screening mammography 24 934471 Z12.31 per pt had mammogram 01/2018 Screening for malignant neoplasm of colon 060718644 Z12.11 last C scope 11/06/13 , good for 10 years [id number] Ashlee Doyle MD [employer], [employer] [facility] [address] [place] [address] 07/03/2019 11:59:15 07/03/2019 12:33:09 Benign hypertension 83510917 I10 per pt BP on the low side , will decrease irbesartan to 1/2 tab of 75 , BP 2 weeksseen ophth 06/2019 Hyperlipidemia 45086664 E78.5 last LDL 01/01/19 Osteopenia 877033943 M85 .80 per pt had DEXA 05/12/2017 Carotid ar petar stenosis 07872359 I65.29 last U/S 08/10/18 ., per pt cardiology is repeating Gastroesop hageal reflux disease without esophagitis 743716596 K21.9 Sinusitis 50473291 J32.9 Screening mammography 24 824343 Z12.31 per pt had mammogram 02/2019 Screening for malignant neoplasm of cervix 226410089 Z12.4 per pt had PAP 06/2017 Screening for malignant neoplasm of colon 714558805 Z12.11 last C scope 11/06/13 , good for 10 years Active or passive immunization 775067442 Z23 up to date [id number] Ashlee Doyle MD [employer] [address] [facility] [address] [place] [address] 10/08/2019 14:13:26 10/08/2019 15:12:20 Benign hypertension 20189372 I10 seen ophth 06/2019 Carotid ar petar stenosis 18418528 I65.29 last U/S 08/10/18 ., Hyperlipidemia 53367653 E78.5 last LDL 01/01/19 History of Malignant melanoma 035300457 Z85.820 sees derm on yearly basis Osteoarthritis 861333091 M19.90 Osteopenia 907938185 M85 .80 per pt had DEXA 05/12/2017 Screening mammography 24 877368 Z12.31 per pt had mammogram 02/2019 Screening for malignant neoplasm of colon 215718497 Z12.11 last C scope 11/06/13 , good for 10 years Active or passive immunization 502836237 Z23 up to date [id number] [employer], [employer] [address] [facility] [address] [place] [address] 11/19/2019 11:02:38 11/19/2019 11:38:22 Varicose veins of lower extremity 01557728 I83.93 Skin nodule 19257082 R22 .9 left coates - Pain in le ft lower limb 353731343 M79.605 medial and lateral of lower calf Paresthesi a of lower extremity 755789649 R20.2 off and on x 6 months - left pretibial area - no numbness or weaknessoc curs occasional ly - [id number] Ashlee Doyle MD [employer], [facility] [address] [facility] [address] [place] [address] 02/29/2020 12:53:53 02/29/2020 13:37:18 Adult health examination 636729561 Z00.01 Benign hypertension 1072 5009 I10 seen ophth 06/2019 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 84937 I82.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 , asymptomat ic for now Age relate d macular degeneration 709935017 H35.30 sees ophth every 6 months Allergic r hinitis 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 90433278 J30.1 stable on OTC meds Carotid ar petar stenosis 28612963 I65.29 last U/S 08/10/18 ., Gastroesop hageal reflux disease without esophagitis 810202265 K21.9 stable on diet control History of Malignant melanoma 691469603 Z85.820 sees derm on yearly basis Hyperlipidemia 52534768 E78.5 last LDL 01/01/19 Left bundl e branch block 20314918 I44.7 will check EKG 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.B0 less than 2 times a month Osteoarthritis 195541209 M19.90 tylenol 500 TID Osteopenia 141390540 M85 .80 per pt had DEXA 05/12/2017 Focal onse t epileptic seizure 68344819 G40.109 no recurrence Transient cerebral ischemia 604503703 G45.9 ASA 81 , no recurrence Screening mammography 667688 Z12.31 per pt had mammogram 02/2019 Screening for malignant neoplasm of cervix 603107466 Z12.4 per pt had PAP 06/2017 Screening for malignant neoplasm of colon 803095178 Z12.11 last C scope 11/06/13 , good for 10 years Active or passive immunization 800705594 Z23 up to date [id number] Ashlee Doyle MD [employer], [employer] [facility]2 [facility] [address] [place] [address] 05/30/2020 12:46:46 05/30/2020 13:45:24 Benign hypertension 36187455 I10 seen ophth 06/2019hol d irbesartan 3 weeks to see if it will help with ST Allergic r hinitis 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 80302608 J30.1 stable on OTC meds Carotid ar petar stenosis 74768516 I65.29 last U/S 08/10/18 ., Gastroesop hageal reflux disease without esophagitis 010858229 K21.9 stable on diet control Hyperlipidemia 40684708 E78.5 last LDL 03/06/20 Osteopenia 700035401 M85 .80 per pt had DEXA 05/12/2017 Transient cerebral ischemia 270989745 G45.9 ASA 81 , no recurrence Idiopathic peripheral neuropathy 33639345 G60.9 per neurology notedeclin e meds Chronic sore throat 2754 41534 J31.2 Family his tory of diabetes mellitus 504312567 Z83.[address] A1c 11/19/19 Screening mammography 24 465181 Z12.31 per pt had mammogram 02/2019 Screening for malignant neoplasm of colon 308013427 Z12.11 last C scope 11/06/13 , good for 10 years Active or passive immunization 072024988 Z23 up to date [id number] Ashlee Doyle MD [employer], [employer] [facility] [address] [place] [address] 01/13/2021 16:32:19 01/13/2021 17:26:08 Localized swelling, mass and lump, neck 684737858 R22.1 Benign hypertension 1072 5009 I10 seen ophth 06/2019hol d irbesartan 3 weeks to see if it will help with ST Carotid ar petar stenosis 89495940 I65.29 last U/S 06/12/20 History of Malignant melanoma 370538644 Z85.820 sees derm on yearly basis Hyperlipidemia 74247958 E78.5 last LDL 03/06/20 Idiopathic peripheral neuropathy 57378993 G60.9 per neurology notedeclin e meds Osteopenia 677717375 M85 .80 per pt had DEXA 03/06/20 Right uppe r quadrant pain 744650311 R10.11 Screening mammography 24 750579 Z12.31 per pt had mammogram 06/20/20 Screening for malignant neoplasm of cervix 796317923 Z12.4 per pt had PAP 06/2017 Screening for malignant neoplasm of colon 199089395 Z12.11 last C scope 11/06/13 , good for 10 years Active or passive immunization 208222006 Z23 up to date [id number] Ashlee Doyle MD [facility], [place] [address] [address] [place] [address] 01/27/2021 12:22:08 01/27/2021 13:08:34 Neoplasm of supraclavicular region 691326942 D49.89 Rt Hyponatremia 95655764 E8 7.1 no salt restrictio n [id number] Ashlee Doyle MD [facility], [address] [place] [address] 02/04/2021 11:46:37 02/04/2021 12:31:51 Swelling of upper limb 779175055 R22.31 Pain of ri ght shoulder joint 3272702510 5496224 M25.511 [id number] Ashlee Doyle MD [facility], [place] [address] [address] [place] [address] 06/23/2021 11:52:57 06/23/2021 12:46:00 Paroxysmal atrial fibrillation 080091452 I48.0 on amiodarone and eliquis Pneumonia 405208541 J18. 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 S/P 4 cycles R-CHOP 04/2021 Hyperlipidemia 03945001 E78.5 last LDL 03/06/20 Allergic r hinitis 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 43635922 J30.1 stable on OTC meds Osteopenia 973462784 M85 .80 per pt had DEXA 03/06/20 Idiopathic peripheral neuropathy 83761088 G60.9 per neurology notedeclin e meds Gastroesop hageal reflux disease without esophagitis 579172403 K21.9 stable on diet control Screening mammography 24 524476 Z12.31 per pt had mammogram 06/20/20 Screening for malignant neoplasm of cervix 385838368 Z12.4 per pt had PAP 06/2017 Screening for malignant neoplasm of colon 263385333 Z12.11 last C scope 11/06/13 , good for 10 years Active or passive immunization 097077766 Z23 up to dateflu shot and COVID booster Adult heal th examination 127750819 Z00.01 last ophth eval 05/2021 Coronary arteriosclerosis 59935242 I25.10 asymptomat icmild per cardiology note Carotid ar petar stenosis 51710312 I65.29 last U/S 06/12/20 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 21099 I82.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 , asymptomat ic for now Benign hypertension 1072 5009 I10 seen ophth 06/2019goo d off irbesartan Age relate d macular degeneration 911877386 H35.30 sees ophth every 6 months Hemorrhoids 88785846 K64 .9 Left bundl e branch block 48760719 I44.7 asymptomat icseen cardiology 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.B0 less than 2 times a month [id number] Ashlee Doyle MD [employer], [address] ,[address] [address] 12/11/2021 12:26:26 12/23/2021 18:32:01 Benign hypertension 70291147 I10 seen ophth 11/2021good off irbesartan Carotid ar petar stenosis 82349687 I65.29 last U/S 06/12/20hav ing US 12/15/21 Coronary arteriosclerosis 31367952 I25.10 asymptomat icmild per cardiology note Hyperlipidemia 63362775 E78.5 last LDL 03/06/20car diology changed to rosuva 5 Idiopathic peripheral neuropathy 05638853 G60.9 per neurology notedeclin e meds 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, face AND/OR neck 98814622 C85.91 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.B0 less than 2 times a monthhavin g MRI of brain 12/15/21 Paroxysmal atrial fibrillation 691511116 I48.0 cardiology had holter ,cardiolog y stopped amiodarone and toprol Screening mammography 24 011864 Z12.31 per pt had mammogram 09/21/21 Screening for malignant neoplasm of cervix 253782793 Z12.4 per pt had PAP 06/2017 Screening for malignant neoplasm of colon 543945415 Z12.11 last C scope 11/06/13 , good for 10 years Active or passive immunization 259094192 Z23 up to dateflu shot and COVID booster History of SARS-CoV-2 29 09453606 39252348 Z86.16 tested +ve 10/2021 Long-term drug therapy 411438381 Z79.899 statin [id number] Ashlee Doyle MD [employer], [employer] [address] [facility] [address] [address] 01/28/2022 11:28:38 01/28/2022 12:24:45 Arthritis of hand 359924462 M13.849 labs @ ER (CBC,CMP,U ron acid and ESR) were NLX ray showed OA Benign hypertension 1072 5009 I10 seen ophth 11/2021good off irbesartan Carotid ar petar stenosis 97244755 I65.29 last U/S 07/13/21 Coronary arteriosclerosis 03939026 I25.10 asymptomat icmild per cardiology note Diffuse hi gh grade B-cell lymphoma 951763703 C83.30 S/P 4 cycles R-CHOP 04/2021 Hyperlipidemia 25140692 E78.5 last LDL 12/24/21card iology changed to rosuva 5 Idiopathic peripheral neuropathy 09589972 G60.9 per neurology notedeclin e medslast B12 08/11/21 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.B0 less than 2 times a monthhavin g MRI of brain 12/15/21 Paroxysmal atrial fibrillation 000146077 I48.0 cardiology had holter ,cardiolog y stopped amiodarone and toprol Screening mammography 24 668428 Z12.31 per pt had mammogram 09/21/21 Screening for malignant neoplasm of cervix 729565521 Z12.4 per pt had PAP 06/2017 Screening for malignant neoplasm of colon 593030474 Z12.11 last C scope 11/06/13 , good for 10 years Active or passive immunization 652932221 Z23 up to dateflu shot and COVID booster Allergic r hinitis 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 47655214 J30.1 stable on OTC meds [id number] Ashlee Dyole MD [facility], [place] [address] [facility] [address] [place] [address] 04/02/2022 12:41:21 04/02/2022 13:38:06 Acute urinary tract infection 497455867 N39.0 Low back pain 844784844 M54.50 Congestion of nasal sinus 89453905 R09.81 Benign hypertension 1072 5009 I10 seen ophth 11/2021good off irbesartan Screening mammography 24 830138 Z12.31 per pt had mammogram 09/21/21 Active or passive immunization 202031338 Z23 up to dateflu shot and COVID booster [id number] Ashlee Doyle MD [facility], [place] [address] [facility] [address] [place] [address] 07/09/2022 12:26:29 07/09/2022 13:18:33 Adult health examination 355822813 Z00.01 last ophth eval 05/2022 Benign hypertension 1072 5009 I10 seen ophth 11/2021good off irbesartan Allergic r hinitis 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 16269070 J30.1 stable on OTC meds Carotid ar petar stenosis 97034640 I65.29 last U/S 07/13/21 Coronary arteriosclerosis 07790724 I25.10 asymptomat icmild per cardiology note Diffuse hi gh grade B-cell lymphoma 377471762 C83.30 S/P 4 cycles R-CHOP 04/2021 Gastroesop hageal reflux disease without esophagitis 756533549 K21.9 stable on diet control History of Malignant melanoma 256865501 Z85.820 sees derm on yearly basis History of SARS-CoV-2 29 52444968 55447645 Z86.16 tested +ve 10/2021 Hyperlipidemia 08195103 E78.5 last LDL 12/24/21card iology changed to rosuva 5 Idiopathic peripheral neuropathy 27400999 G60.9 per neurology notedeclin e medslast B12 08/11/21 Left bundl e branch block 51555150 I44.7 asymptomat icseen cardiology Long-term drug therapy 934420848 Z79.899 statin Open-angle glaucoma of left eye 037987090 H40.1130 ophth eval 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.B0 less than 2 times a monthhavin g MRI of brain 12/15/21 Osteoarthritis 124871884 M19.90 tylenol 500 TID Osteopenia 033005833 M85 .80 per pt had DEXA 03/06/20 Paroxysmal atrial fibrillation 371131334 I48.0 cardiology had holter ,cardiolog y stopped amiodarone and toprol Focal onse t epileptic seizure 42379690 G40.109 no recurrence Screening mammography 24 679757 Z12.31 per pt had mammogram 09/21/21 Screening for malignant neoplasm of cervix 375035928 Z12.4 per pt had PAP 06/2017 Screening for malignant neoplasm of colon 674292364 Z12.11 last C scope 11/06/13 , good for 10 years Active or passive immunization 032316586 Z23 up to dateflu shot and COVID booster Increased frequency of urination 023316328 R35.0 Hemorrhoids 18742024 K64 .9 Congestion of nasal sinus 73065521 R09.81 562645 Ashlee Doyle MD [employer], [employer] [address] [facility] [place] ,[address] [address] 10/12/2022 12:17:42 10/12/2022 13:49:28 Benign hypertension 71632802 I10 seen ophth 11/2021good off irbesartan last EKG 06/28/22 Carotid ar petar stenosis 31396887 I65.29 last U/S 07/13/21 Coronary arteriosclerosis 19550288 I25.10 asymptomat icmild per cardiology note Gastroesop hageal reflux disease without esophagitis 221326643 K21.9 stable on diet control Hyperlipidemia 41609898 E78.5 last LDL 12/24/21card iology changed to rosuva 5 Paroxysmal atrial fibrillation 773215333 I48.0 cardiology had holter ,cardiolog y stopped amiodarone and toprolchad score 4-5 Diffuse hi gh grade B-cell lymphoma 327060396 C83.30 S/P 4 cycles R-CHOP 04/2021 Vitamin B deficiency 479 45707 E53.9 Screening mammography 24 250271 Z12.31 per pt had mammogram 09/21/21 Long-term drug therapy 212943563 Z79.899 statin Screening for malignant neoplasm of cervix 307323817 Z12.4 per pt had PAP 06/2017 Screening for malignant neoplasm of colon 426045490 Z12.11 last C scope 11/06/13 , good for 10 years Active or passive immunization 438444028 Z23 up to dateflu shot and COVID booster Mixed urin vini incontinence 191369830 N39.46 137569 Ashlee Doyle MD [employer], [employer] [address] [facility] [place] [address] [address] 01/26/2023 11:04:40 01/26/2023 11:53:47 Atrial fibrillation 75830494 I48.91 stablesees cardiology on reg basis Benign hypertension 1072 5009 I10 seen ophth 08/2022 per ptlast EKG 01/04/23 Osteoarthritis 520079751 M19.90 tylenol 500 TID Arthritis of hand 189631 005 M13.849 labs @ ER (CBC,CMP,U ron acid and ESR) were NLX ray showed OA Age relate d macular degeneration 791592845 H35.30 sees ophth every 6 months Carotid ar petar stenosis 72533687 I65.29 last U/S 07/13/21 Hyperlipidemia 47802653 E78.5 last LDL 12/24/21card iology changed to rosuva 5 Idiopathic peripheral neuropathy 92895807 G60.9 per neurology notedeclin e medslast B12 08/11/21 Long-term drug therapy 843799821 Z79.899 statin 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.B0 less than 2 times a monthhavin g MRI of brain 12/15/21 Hypomagnesemia 389611451 E83.42 Hyponatremia 67798789 E8 7.1 no salt restrictio n Screening mammography 24 153718 Z12.31 per pt had mammogram 11/08/22 Screening for malignant neoplasm of cervix 604716752 Z12.4 per pt had PAP 06/2017 Screening for malignant neoplasm of colon 296426220 Z12.11 last C scope 11/06/13 , good for 10 years Active or passive immunization 204978959 Z23 up to dateflu shot and COVID booster 155775 Ashlee Doyle MD [employer], [employer] [address] [facility] [place] [address] [place] [address] 04/14/2023 11:58:27 04/14/2023 13:37:29 Cellulitis of lower leg 149585612 L03.119 Insomnia 775843899 G47.0 0 Benign hypertension 1072 5009 I10 seen ophth 08/2022 per ptlast EKG 01/04/23 Carotid ar petar stenosis 75787624 I65.29 last U/S 07/13/21 Paroxysmal atrial fibrillation 385652982 I48.0 cardiology had holter ,cardiolog y stopped amiodarone and toprolchad score 4-5anticoa gulation safty education Cough 94725722 R05.9 Hypomagnesemia 116087581 E83.42 Mixed hyperlipidemia 267 865610 E78.2 Long-term drug therapy 262196379 Z79.899 statin Screening mammography 24 360197 Z12.31 per pt had mammogram 11/08/22 Screening for malignant neoplasm of colon 901463788 Z12.11 last C scope 11/06/13 , good for 10 years Screening for malignant neoplasm of cervix 715312567 Z12.4 per pt had PAP 06/2017 Active or passive immunization 096950680 Z23 up to dateflu shot and COVID booster [id number] Ashlee Doyle MD [employer], [place] [address] [facility] [place] ,[address] [place] [address] 06/16/2023 11:35:15 06/16/2023 13:03:22 Dysphagia 84368477 R13.10 Body mass index 20-24 - normal 295600646 Z68.20 down 10 LBs without trying Benign hypertension 1072 5009 I10 on the low side today , with light headinesss top amlodipine BP 2 weeksseen ophth 08/2022 per ptlast EKG 01/04/23 Dysuria 07521472 R30.0 Carotid ar petar stenosis 81588541 I65.29 last U/S 10/12/22 per pt Paroxysmal atrial fibrillation 756474035 I48.0 cardiology had holter ,anita score 4-5anticoa gulation safty education Screening mammography 24 052501 Z12.31 per pt had mammogram 11/08/22 Screening for malignant neoplasm of cervix 499819591 Z12.4 per pt had PAP 06/2017 Screening for malignant neoplasm of colon 296564666 Z12.11 last C scope 11/06/13 , good for 10 years Active or passive immunization 228531712 Z23 up to date Osteopenia 772547402 M85 .80 per pt had DEXA 11/08/22 Fatigue 88693177 R53.83 Hyperlipidemia 33053238 E78.5 last LDL 12/24/21card iology changed to rosuva 5 [id number] Ashlee Doyle MD [facility] [place] ,[address] [place] [address] 06/27/2023 10:57:18 06/27/2023 12:29:38 Benign hypertension 10158264 I10 on the higher side @ homeadd 12.5 losartanBP 2 weeksseen ophth 08/2022 per ptlast EKG 01/04/23 Dysuria 35894222 R30.0 Hyponatremia 94079772 E8 7.1 no salt restrictio n Screening for malignant neoplasm of cervix 004583180 Z12.4 per pt had PAP 06/2017 Active or passive immunization 543116040 Z23 up to date Atrophic vaginitis 23880 000 N95.2 589089 Ashlee Doyle MD [facility] [place] ,[address] [place] [address] 08/24/2023 10:58:39 08/24/2023 12:05:07 Benign hypertension 04491794 I10 good controlon 12.5 losartanBP 2 weeksseen ophth 08/2023 per ptlast EKG 01/04/23 Carotid ar petar stenosis 27859911 I65.29 last U/S 10/12/22 per pt Coronary arteriosclerosis 92267807 I25.10 asymptomat icmild per cardiology note Gastroesop hageal reflux disease without esophagitis 101365518 K21.9 GI add pantoprazo le 40 BID and carafate Hyponatremia 94350198 E8 7.1 no salt restrictio n Screening mammography 24 410316 Z12.31 per pt had mammogram 11/08/22 Screening for malignant neoplasm of cervix 761983854 Z12.4 per pt had PAP 06/2023 Screening for malignant neoplasm of colon 151464243 Z12.11 last C scope 11/06/13 , good for 10 years Active or passive immunization 114899108 Z23 up to date Adult heal th examination 239435198 Z00.01 last ophth eval 05/2023 Focal onse t epileptic seizure 77124371 G40.109 no recurrence Family his tory of diabetes mellitus 327799912 Z83.[address] A1c 05/13/23 Diffuse hi gh grade B-cell lymphoma 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 S/P 4 cycles R-CHOP 04/2021 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 , asymptomat ic for now Age relate d macular degeneration 057284512 H35.30 sees ophth every 6 months Allergic r hinitis 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 70793265 J30.1 stable on OTC meds History of Malignant melanoma 763568256 Z85.820 sees derm on yearly basis History of SARS-CoV-2 29 41249968 45941726 Z86.16 tested +ve 10/2021 Hyperlipidemia 54989119 E78.5 last LDL 05/13/23car diology changed to rosuva 5 Hypomagnesemia 788296509 E83.42 last level 06/21/23 Idiopathic peripheral neuropathy 90588194 G60.9 per neurology notedeclin e medslast B12 06/21/23 Increased frequency of urination 790095083 R35.0 Insomnia 270222965 G47.0 0 better Left bundl e branch block 74924991 I44.7 asymptomat icseen cardiology Long-term drug therapy 241791388 Z79.899 statin , last A1c 05/11/23 Macrocytosis 362891652 D 75.89 last b12 06/27/23 Neoplasm o f supraclavicular region 606279510 D49.89 Rt 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.B0 less than 2 times a monthhavin g MRI of brain 12/15/21 Paroxysmal atrial fibrillation 597273157 I48.0 cardiology had holter ,anita score 4-5anticoa gulation safty education Transient cerebral ischemia 880417626 G45.9 ASA 81 , no recurrence Vitamin B deficiency 479 05432 E53.9 b12 06/21/23 Peripheral vascular disease 756220390 I73.9 per cardiology note 01/21/23 Advance di rective discussed with patient 406485048 Z71.89 education [id number] Ashlee Doyle MD [employer], [address] [place] ,[address] [address] 11/23/2023 11:02:35 11/23/2023 12:01:52 Candidiasis of esophagus 26968305 B37.81 had EGD 10/20/23 , had 2 rounds of fluconazol e Congestive heart failure 78432231 I50.9 last ECHO 10/2023 Anemia 310763721 D64.9 Paroxysmal atrial fibrillation 849755092 I48.0 cardiology had holter ,anita score 4-5anticoa gulation safty education Carotid ar petar stenosis 99506765 I65.29 last U/S 10/12/22 per pt Active or passive immunization 695259639 Z23 up to date Body mass index less than 20 438924829 Z68.1 913774 Ashlee Doyle MD [employer] [facility], [address] [place] ,[address] [address] 01/06/2024 12:05:09 01/06/2024 14:11:13 Mild memory disturbance 991369507 R41.3 mild , Age relate d macular degeneration 368013797 H35.30 sees ophth every 6 monthsneed help with ADLsform 4 pages done today Idiopathic peripheral neuropathy 18331283 G60.9 per neurology notedeclin e medslast B12 06/21/23 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.B0 less than 2 times a monthhavin g MRI of brain 12/15/21 Paroxysmal atrial fibrillation 373155132 I48.0 cardiology had holter ,anita score 4-5anticoa gulation safty education [id number] Ashlee Doyle MD [employer] [facility], [address] [place] ,[address] [place] [address] 03/06/2024 14:59:36 03/06/2024 16:02:00 Anemia 825178411 D64.9 Benign hypertension 1072 5009 I10 good controlBP 2 weeksseen ophth 08/2023 per ptlast EKG 01/04/23 Cough 01205852 R05.9 Carotid ar petar stenosis 20015307 I65.29 last U/S 10/12/22 per pt Hyperlipidemia 89745943 E78.5 last LDL 05/13/23car diology changed to rosuva 5 Fall on same level 53888 003 W18.30XA one time , 2 months agoeducati on Screening mammography 24 842073 Z12.31 per pt had mammogram 12/30/23 Screening for malignant neoplasm of cervix 827639792 Z12.4 per pt had PAP 06/2023 Screening for malignant neoplasm of colon 156385608 Z12.11 last C scope 11/06/13 , good for 10 years Active or passive immunization 069124215 Z23 up to date Benign par oxysmal positional vertigo 332863435 H81.10 [id number] Ashlee Doyle MD [employer], [employer] [facility] [place] ,[address] [place] [address] 04/18/2024 11:36:37 04/18/2024 12:38:39 Pneumonia 072693214 J18.9 LLL on CXR 04/05/24O2 is 93% Congestive heart failure 50846066 I50.9 last ECHO 10/2023 , EF 45%resolve d Paroxysmal atrial fibrillation 453132937 I48.0 cardiology had holter ,anita score 4-5anticoa gulation safty education Iron defic iency anemia 63790264 D50.9 Benign hypertension 1072 5009 I10 good controlBP 2 weeksseen ophth 08/2023 per ptlast EKG 01/04/23 Candidiasis of vagina 72 982098 B37.31 132435 Ashlee Doyle MD [employer], [employer] [facility] [place] ,[address] [place] [address] 06/18/2024 11:27:00 06/18/2024 12:45:24 Benign hypertension 01117887 I10 good controlBP 2 weeksseen ophth 08/2023 per ptlast EKG 06/27/23 Congestive heart failure 28715725 I50.9 last ECHO 10/2023 , EF 45%resolve d Dysphagia 07547884 R13.1 0 seen GI , having EGD Paroxysmal atrial fibrillation 663731575 I48.0 cardiology had holter ,anita score 4-5anticoa gulation safty education Stasis dermatitis 580311 05 I87.2 low ext Screening mammography 24 431845 Z12.31 per pt had mammogram 12/30/23 Screening for malignant neoplasm of cervix 517627309 Z12.4 per pt had PAP 06/2023 Screening for malignant neoplasm of colon 856839819 Z12.11 last C scope 11/06/13 , good for 10 years Active or passive immunization 061315066 Z23 up to date 393822 Ashlee Doyle MD [employer], [place] [address] [facility] [place] [address] [address] 10/08/2024 11:08:50 10/08/2024 12:22:58 Benign hypertension 88858978 I10 good controlBP 2 weeksseen ophth 08/2024 per ptlast EKG 06/27/23 Carotid ar petar stenosis 99154058 I65.29 last U/S 10/12/22 per pt Hypomagnesemia 958369321 E83.42 last level 06/21/23 Hyperlipidemia 05008116 E78.5 last LDL 05/13/23car diology changed to rosuva 5 Idiopathic peripheral neuropathy 29524432 G60.9 per neurology notedeclin e medslast B12 06/21/23 Iron defic iency anemia 27417898 D50.9 Long-term drug therapy 274611789 Z79.899 statin , last A1c 02/2024 ,amiodaron e , scheduled for PFT 11/2023 per pt Congestive heart failure 55863738 I50.9 last ECHO 10/2023 , EF 45%resolve d Screening mammography 24 547878 Z12.31 per pt had mammogram 12/30/23 Screening for malignant neoplasm of cervix 963446097 Z12.4 per pt had PAP 06/2023 Screening for malignant neoplasm of colon 273348471 Z12.11 last C scope 11/06/13 , no polyp Active or passive immunization 135914312 Z23 up to date Unintentio nal weight loss 832760597 R63.4 Paroxysmal atrial fibrillation 075837802 I48.0 cardiology had holter ,anita score 4-5anticoa gulation safty education [id number] Ashlee Doyle MD [employer], [address] [address] 04/02/2025 11:20:44 04/02/2025 12:56:19 Adult health examination 092711324 Z00.01 5316346 last ophth eval 05/2023 Benign hypertension 1072 5009 I10 good controlBP 2 weeksseen ophth 08/2024 per ptlast EKG 06/27/23 Coronary arteriosclerosis 69366487 I25.10 asymptomat icmild per cardiology note Paroxysmal atrial fibrillation 244586974 I48.0 cardiology had holter ,anita score 4-5anticoa gulation safty education Peripheral vascular disease 103052681 I73.9 per cardiology note 01/21/23 Carotid ar petar stenosis 60323380 I65.29 last U/S 10/12/22 per pt Mixed hyperlipidemia 267 777068 E78.2 last LDL 10/23/24 Congestive heart failure 70124091 I50.9 last ECHO 10/2023 , EF 45%resolve d 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 39087 I82.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 , asymptomat ic for now Prediabetes 480136658 R7 3.03 Body mass index less than 20 847229482 Z68.1 education Vitamin B deficiency 479 00645 E53.9 b12 06/21/23 Open-angle glaucoma of left eye 401853450 H40.1130 ophth eval Age relate d macular degeneration 555633510 H35.30 sees ophth every 6 monthsneed help with ADLsform 4 pages done today Dysphagia 37500361 R13.1 0 seen GI , had EGD Gastroesop hageal reflux disease without esophagitis 953003412 K21.9 GI add pantoprazo le 40 BID and carafate Hypomagnesemia 646102900 E83.42 last level 06/21/23 Mixed urin vini incontinence 519927602 N39.46 Anemia 746995758 D64.9 Diffuse hi gh grade B-cell lymphoma 759656084 C83.30 S/P 4 cycles R-CHOP 04/2021 History of Malignant melanoma 644681854 Z85.820 sees derm on yearly basis History of SARS-CoV-2 29 24753495 16290052 Z86.16 tested +ve 10/2021 Osteoarthritis 650677837 M19.90 tylenol 500 TID 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.B0 less than 2 times a monthhavin g MRI of brain 12/15/21 Transient cerebral ischemia 356313206 G45.9 ASA 81 , no recurrence Mild memor y disturbance 282277088 R41.3 mild , Idiopathic peripheral neuropathy 52695281 G60.9 per neurology notedeclin e medslast B12 06/21/23 Insomnia 367851880 G47.0 0 better Focal onse t epileptic seizure 76919575 G40.109 no recurrence Allergic r hinitis 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 05344723 J30.1 stable on OTC meds Fracture o f superior pubic ramus 577303152 S32.511D 57019749 seen ortho , getting better , on PT Low back pain 859568273 M54.50 04919 Screening mammography 24 354248 Z12.31 7197498974 per pt had mammogram 12/30/23 Cancer cer vix screening status 014506428 Z12.4 482554 per pt had PAP 06/2023 Screening for malignant neoplasm of colon 242732931 Z12.11 719762 last C scope 11/06/13 , no polyp Immunization due 3441383 08 Z23 0001881 up to date Counseling 532663244 Z71 .89 517773 education [id number] Ashlee Doyle MD [facility] [employer], [employer] [address] [facility] [place] ,[address] [place] [address] 07/09/2025 11:34:48 07/09/2025 12:47:12 Benign hypertension 38221147 I10 - good control- BP 2 weeks- seen ophth 06/2025 per pt- last EKG 04/02/25 Congestive heart failure 08726160 I50.9 - last ECHO 10/2023 , EF 45%- resolved Paroxysmal atrial fibrillation 075076474 I48.0 - cardiology had holter ,- anita score 4-5- anticoagul ation safty education Peripheral vascular disease 202707680 I73.9 - per cardiology note 01/21/23 Carotid ar petar stenosis 53151850 I65.29 - last U/S 10/12/22 per pt Mixed hyperlipidemia 267 899050 E78.2 - last LDL 10/23/24 Neck pain 67374790 M54.2 42803 Prediabetes 461201165 R7 3.03 - last A1c 04/16/25 Body mass index less than 20 824931864 Z68.1 education Vitamin B deficiency 479 94697 E53.9 b12 06/21/23 Hypomagnesemia 876208913 E83.42 - last level 04/16/25 Anemia 993753297 D64.9 Screening mammography 24 298012 Z12.31 9620690465 per pt had mammogram 04/16/25 Screening for malignant neoplasm of cervix 011067332 Z12.4 888035 per pt had PAP 06/2023 Screening for malignant neoplasm of colon 101577307 Z12.11 961723 last C scope 11/06/13 , no polyp Immunization due 3914057 08 Z23 3726426 up to date Health Concerns Section Related Observation LastModified by Organization Detai ls LastModified Time None Recorded Concern Status LastModified by Organization Details LastModified Time None Recorded Advance Directives Directive None Recorded Payers Insurance Date Sequence Insurance Name Policy Number Policy Tai Covered Member ID Tai Member ID Guarantor Name 08/19/2025 2 [place] 104 Agustina Cordova [id number] Agustina Cordova 08/20/2025 1 [place] Agustina Cordova [id number] Agustina Cordova Notes Date Note Type [...] Pneumonia , Better now MD Kane Gale[facility] [place] [address], [place], [address], [facility] 04/18/2024 12:33:14 4 text/html Hypertension F/UReported by PatientHPIFor medications, patient reportstaking medications as directedandno side effects from medication. For lifestyle, patient reportsregular exercise,limiting/avoiding salt, andcompliant with low salt diet. For associated symptoms, patient reportsno dizziness,no lightheadedness,no chest pain,no shortness of breath,no palpitations,no edema,no calf pain with exertion, andno headache. MD Kane Galeano [address], [place], [address], [facility] 06/18/2024 12:41:56 5 text/html Hypertension F/UReported by PatientHPIFor medications, patient reportstaking medications as directedandno side effects from medication. For lifestyle, patient reportsregular exercise,limiting/avoiding salt, andcompliant with low salt diet. For associated symptoms, patient reportsno dizziness,no lightheadedness,no chest pain,no shortness of breath,no palpitations,no edema,no calf pain with exertion, andno headache. MD Kane Galeano [address], [place], [address], [facility] 10/08/2024 12:13:35 5 text/html Medicare Annual [...] exertion, andno headache. Ashlee Doyle MD [address], [place], [address], [facility] 04/02/2025 12:42:21 5 text/html Hypertension F/UReported by PatientHPIFor medications, patient reportstaking medications as directedandno side effects from medication. For lifestyle, patient reportsregular exercise,limiting/avoiding salt, andcompliant with low salt diet. For associated symptoms, patient reportsno dizziness,no lightheadedness,no chest pain,no shortness of breath,no palpitations,no edema,no calf pain with exertion, andno headache. Ashlee Doyle MD [address], [place], [address], [facility] 07/09/2025 12:40:58 OBGyn Episode No OBEpisode recorded.
--- OUTSIDE RECORDS SUMMARY | 2025-08-23 21:08 | XMS_ITS | Encounter Summary ---
Author Organization [facility] Address [address] [place] [address] Care Team Providers Care Bench Technician Name Role Phone Olivia Foss MD Primary Care Provider Unavailable Encounter Details Date Type Department Care Team (Late st Contact Info) Description 02/07/2019 Lab Requisition [facility] Care DermPath Lab [address] [facility] [place] [address] Olivia Fernandez MD [address] [facility] [address] [place] [address] Social History Tobacco Use Types Packs/Day Years Used Date Smoking Tobacco: Never Assessed Comments Unknown Sex and Gender Information Value Date Recorded Sex Assigned at Not on file Legal Sex Female 6:20 AM CRO Gender Identity Not on file Sexual Orientation Not on file documented as of this encounter Plan of Treatment Not on file documented as of this encounter Procedures Procedure Name Priority Date/Time Associated Diagnosis Comments DERMATOPATHOLOGY Routine 02/05/2019 12:0 0 AM CDT documented in this encounter Results * DERMATOPATHOLOGY (02/05/2019 12:00 AM CDT) Case Report Dermatopathology Report Case: [id number] Authorizing Provider: Olivia Fernandez MD Collected: 02/05/2019 [...] The specimen consists of a shave measuring 3h6n1vr. Jar 0. Specimen B: Received is one formalin filled container labeled with the patient's name and designated left FA. The specimen consists of a shave (2 pieces) measuring 34h9k5dn & 3o5w2kf. Jar 0. 10:54 AM T DERMATOPATHOLOGY LABORATORY [...] purposes. Billing Codes Specimen Charges Stain Charges 71319 09643 1 1 9 10:54 AM T DERMATOPATHOLOGY LABORATORY Embedded Images 10:54 AM T DERMATOPATHOLOGY LABORATORY Pathology/Cytology TISSUE SPECIMEN FROM SKIN / Unknown 02/05/2019 02/07/2019 8:16 AM CDT Miscellaneous samples (specimen) TISSUE SPECIMEN FROM SKIN / Unknown 02/05/2019 02/07/2019 8:16 AM CDT Olivia Fernandez MD LAB - PATHOLOGY/CYTOLOGY OR DERABLES Final Result DERMATOPATHOLOGY LABORATORY [facility] - Department of Dermatology [address] [place] [address], [address] [place] [address], [facility] [phone] documented in this encounter Visit Diagnoses Not on filedocumented in this encounter Care Teams Bench Technician Relationship Specialty Start Date End Date Olivia Foss MD PCP - General 02/05/19 documented as of this encounter
--- OUTSIDE RECORDS SUMMARY | 2025-08-23 21:08 | XMS_ITS | Encounter Summary ---
Author Organization [facility] Address [address] [place] [address] Phone Care Team Providers Care Truck Driver Name Role Phone Miscellaneous, Not In File Unavailable Unava ilable Sheryl Latham MD Unavailable [phone] Ashlee Doyle MD Primary Care Provider +- [phone] Jonh Junior MD Unavailable Encounter Details Date Type Department Care Team (Late st Contact Info) Description 06/30/2025 Results Follow-Up [facility] Medicine Cardiology [address], [address] [place] [address] Jonh Junior MD [address] [place] [address] Pulmonary Function Test - Social [...] on file Legal Sex Female 2:10 AM OUTSOLE COMPRESSOR Gender Identity Not on file Sexual Orientation Not on file Occupation Industry Job Start Date Job End Date retired Not on file Not on file Not on file documented as of this encounter Plan of Treatment Not on file documented as of this encounter Visit Diagnoses Not on filedocumented in this encounter Care Teams Truck Driver Relationship Specialty Start Date End Date Ashlee Doyle MD [address] [place] [address] PCP - General Internal Medicine 09/05/23 Miscellaneous, Not In File 03/24/21 Sheryl Latham MD Medical Oncologist/Business Project Analyst Medical Oncology 05/12/21 Jonh Junior MD [address] [place] [address] Referring Physician Cardiology 09/05/23 documented as of this encounter
--- OUTSIDE RECORDS SUMMARY | 2025-08-23 21:08 | XMS_ITS | Encounter Summary ---
Author Organization [facility] Address [address] [place] [address] Care Team Providers Care [employer] Flatbed Driver Name Role Phone Olivia Foss MD Primary Care Provider Unavailable Encounter Details Date Type Department Care Team (Late st Contact Info) Description 04/09/2019 Lab Requisition [facility] [address] [place] [address] Olivia Fernandez MD [address] [facility] [address] [place] [address] Social History Tobacco Use Types Packs/Day Years Used Date Smoking Tobacco: Never Assessed Comments Unknown Sex and Gender Information Value Date Recorded Sex Assigned at Not on file Legal Sex Female 6:20 AM SECOND MATE Gender Identity Not on file Sexual Orientation Not on file documented as of this encounter Plan of Treatment Not on file documented as of this encounter Procedures Procedure Name Priority Date/Time Associated Diagnosis Comments DERMATOPATHOLOGY Routine 04/06/2019 12:0 0 AM CDT documented in this encounter Results * DERMATOPATHOLOGY (04/06/2019 12:00 AM CDT) Case Report Dermatopathology Report Case: [id number] Authorizing Provider: Olivia Fernandez MD Collected: 04/06/2019 [...] History R/O SCCIS, biopsy proven. Previous Bx: [id number]. 3:47 PM CDT DERMATOPATHOLOGY LABORATORY Gross Description Specimen A: Received is one formalin filled container labeled with the patient's name and designated left fa. The specimen consists of a non-oriented ellipse of skin measuring [id number]. The epidermal surface is unremarkable. The margin [...] by the Dermatopathology Laboratory at [facility], directed by Dr. Kwame Agrawal. These tests need not be, and therefore are not, approved by the [place] Food and Drug Administration. The tests are used for clinical purposes. Billing Codes Specimen Charges Stain Charges 18505 1 3:47 PM CDT DERMATOPATHOLOGY LABORATORY Embedded Images 3:47 PM CDT DERMATOPATHOLOGY LABORATORY Pathology/Cytolog y TISSUE SPECIMEN FROM SKIN / Unknown 04/06/2019 04/09/2019 6:40 AM CDT Olivia Fernandez MD LAB - PATHOLOGY/CYTOLOGY OR DERABLES Final Result DERMATOPATHOLOGY LABORATORY [facility] - Department of Dermatology [address] [place] [address], [facility] [phone] documented in this encounter Visit Diagnoses Not on filedocumented in this encounter Care Teams [employer] Flatbed Driver Relationship Specialty Start Date End Date Olivia Foss MD PCP - General 02/05/19 documented as of this encounter
[2025-08-23 21:09] LABS: Hematocrit 28.1 % (37.0-47.0); Hemoglobin 8.5 g/dL (12.0-15.0); Immature Granulocyte Percent A 0.8 % (0-0.5); Lymphocytes Absolute Auto 1.61 K/mm3 (0.9-3.2); Mean Corpuscular HGB Conc 30.2 g/dl (32-36); Mean Corpuscular Hemoglobin 25.8 pg (26-34); Mean Corpuscular Volume 85.4 fl (80-100); Nucleated Red Blood Cells Absolute Auto 0.000 K/mm3 (0.0-0.012); Nucleated Red Blood Cells Perc 0.0 % (0.0-0.2); Platelet Count Result 154 k/mm3 (150-375); Red Blood Count 3.29 M/mm3 (4.2-5.4); White Blood Count 10.5 K/mm3 (4.5-10.0)
[2025-08-23] MEDS: ONDANSETRON INJ 4 MG/2 ML VIAL IV PUSH (21:15)
[2025-08-23] MEDS: MORPHINE SULFATE (*CRX) 4 MG/ML INJ IV PUSH (21:15)
[2025-08-23] MEDS: SODIUM CHLORIDE 0.9% IV 1,000 ML 150 ML IV CONT (21:16)
[2025-08-23 21:19] LABS: Alanine Aminotransferase 15 U/L (6-35); Albumin Level 4.0 g/dL (3.5-5.1); Alkaline Phosphatase 78 U/L (38-126); Anion Gap 5 mmol/L (4-12); Aspartate Amino Transferase 25 U/L (14-36); Bilirubin,Total 0.6 mg/dL (0.2-1.3); Blood Urea Nitrogen 15 mg/dL (7-17); Calcium 8.9 mg/dL (8.4-10.2); Carbon Dioxide 22 mmol/L (22-30); Chloride 102 mmol/L (98-107); Creatine Kinase 43 U/L (30-135); Estimated CRCL calculation 28 ml/min; Estimated Glomerular Filt Rate 49; Glucose 93 mg/dL (65-110); Magnesium 1.8 mg/dL (1.6-2.3); Potassium 3.9 mmol/L (3.4-5.0); Sodium 129 mmol/L (137-145); Total Protein 6.3 g/dL (6.3-8.2)
[2025-08-23 21:21] LABS: INR 1.2; Partial Thromboplastin Time 29.9 Seconds (22.3-36.8); Prothrombin Time 15.5 Seconds (11.1-14.7)
[2025-08-24] VITALS (21 sets, daily range): BP systolic 94–173; BP diastolic 46–80; PULSE 74–101; RESP 12–18; TEMP 36–37.1; O2SAT 91–100
--- NOTE | 2025-08-24 00:57 | WPCEDHO ---
ED Hand Off Checklist All vitals saved: yes IV Site documented: yes All med administrations documented: yes Triage Note Triage Note Patient to the ED via EMS with 08/23/25 18:46 complaints of fall off of a step onto her right side. patient complains of right hip pain/femur pain. Patient has history of broken hip. Patient given 4mg of morphine. Allergies Sulfa (Sulfonamide Antibiotics) Allergy (Severe, Verified 08/13/25 07:38) Swelling of Lip/Tongue/Throat Family History (Last Reviewed 08/13/25 @ 14:44 by Starr Holland PA-C) Sibling Cerebrovascular accident Mother Cardiac abnormality Administered/Completed Medications Discontinued Medications Sodium Chloride (Normal Saline Iv) 1,000 mls @ 150 mls/hr IV CONT .[id number] STA Stop: 08/24/25 03:09 Last Admin: 08/23/25 21:16 Dose: 150 mls/hr Documented By: DEYA Morphine Sulfate (Morphine Sulfate (*Crx) 4 Mg/Ml Inj) 4 mg IV PUSH ONCE STA Stop: 08/23/25 20:31 Last Admin: 08/23/25 21:15 Dose: 4 mg Documented By: DEYA Ondansetron HCl (Ondansetron Inj 4 Mg/2 Ml Vial) 4 mg IV PUSH ONCE STA Stop: 08/23/25 20:31 Last Admin: 08/23/25 21:15 Dose: 4 mg Documented By: DEYA Interventions/Assessments IV / Saline Lock, Insert Start: 08/23/25 21:16 Freq: Status: Active Protocol: Document 08/23/25 22:01 LDD (Rec: 08/24/25 00:55 DEYA [id number]) IV Assessment Peripheral Access Left Hand IV Catheter Access Initiated Before Arrival Catheter Gauge 20 IV Site Assessment WNL IV Care and WNL Maintenance PA: Neurological Assessment Start: 08/23/25 18:37 Freq: Status: Active Protocol: Document 08/23/25 23:05 LDD (Rec: 08/24/25 00:53 LDD [id number]) Neurological Assessment Level of Alert Consciousness Arousable to Verbal Orientation Oriented to Person,Oriented to Place,Oriented to Time Neurological Frequent Falls Symptoms Hallucination Type None Unable to Redirect No Behavior Behavior Appropriate,Cooperative Patient Able to Comprehend Comprehension Memory Description Intact Ability to Maintain Unable to Assess Balance Facial Symmetry Symmetrical Speech Pattern Clear Ability to Swallow Normal Tongue Position Midline Last Vital Signs Pulse Rate 76 08/23/25 18:46 Respiratory Rate 14 08/23/25 18:46 Pulse Oximetry 97 08/23/25 18:46 Blood Pressure 154/73 H 08/23/25 18:46 Blood Pressure Mean 100 08/23/25 18:46 Oxygen Delivery Room Air 08/23/25 18:46 Weight 53.6 kg 08/23/25 18:46 Last Result - Abnormals Only WBC 10.5 K/mm3 (4.5-10.0) H 08/23/25 21:03 RBC 3.29 M/mm3 (4.2-5.4) L 08/23/25 21:03 Hgb 8.5 g/dL (12.0-15.0) L 08/23/25 21:03 Hct 28.1 % (37.0-47.0) L 08/23/25 21:03 MCH 25.8 pg (26-34) L 08/23/25 21:03 MCHC 30.2 g/dl (32-36) L 08/23/25 21:03 RDW 21.7 % (11.5-14.5) H 08/23/25 21:03 Immature Gran % (Auto) 0.8 % (0-0.5) H 08/23/25 21:03 Neut % (Auto) 76.1 % (45.5-73.1) H 08/23/25 21:03 Lymph % (Auto) 15.3 % (18.3-44.2) L 08/23/25 21:03 Webb # (Auto) 0.7 K/mm3 (0.1-0.6) H 08/23/25 21:03 Abs Immat Gran (auto) 0.08 K/mm3 (0.00-0.031) H 08/23/25 21:03 Absolute Neuts (auto) 8.0 K/mm3 (1.3-6.7) H 08/23/25 21:03 PT 15.5 Seconds (11.1-14.7) H 08/23/25 21:03 Sodium 129 mmol/L (137-145) L 08/23/25 21:03 Creatinine 1.06 mg/dL (0.7-1.0) H 08/23/25 21:03 Estimated GFR 49 (59-) L 08/23/25 21:03 Most Recent Suicide Severity Rating Suicide Severity Rating NO RISK INDICATED 08/23/25 18:46
--- NOTE | 2025-08-24 01:05 | P.HP_ITS ---
H&P: HPI History of Present Illness Date/Time: 08/24/25 01:05 Chief Complaint: Fall Narrative: 89-year-old female with history of atrial fibrillation on Eliquis, hypertension, heart failure, hyperlipidemia, presents after she tripped on the stairs. She fell on her right hip. Head pain. No loss of conscious, no head strike. Recently broke her right hip in February, non operative management with [facility]. WBC 10.5, hemoglobin 8.5, INR 1.2, last took Eliquis on the morning of 08/23/2025. Sodium 129, serum creatinine 1.06, urinalysis pending. Patient reports recent burning on urination. CT chest abdomen pelvis spine demonstrating multiple fractures of the right femoral intertrochanteric with varus angulation, fractures of the right superior and inferior pubic rami and pubic symphysis, fracture of right sacral alae and possible inferior endplate fracture of L4, age indeterminate. Small pleural effusions with dependent atelectasis. Patient is breathing well, saturating 95% on room air. Heart rate controlled. Head CT without acute findings, chest x-ray with mild interstitial edema. Orthopedic surgery consulted from the ER. Patient given morphine 4 mg IV x1, Zofran 4 mg IV x1. Review of Systems Review of Systems: All systems reviewed & are unremarkable except as noted in HPI and below (Subjective) [facility] Past Medical History Medical History History of hip fracture right hip Heart failure with mid-range ejection fraction Echocardiogram in October 2023 showed mildly reduced LV systolic function with an EF of 45 to 50% and grade 1 diastolic dysfunction. Transient ischemic attack Chronic anticoagulation Paroxysmal atrial fibrillation Left bundle branch block Hyperlipidemia Hypertension Lymphoma (2020) Surgical History Surgical History History of lymph node biopsy Family History Family History Sibling Cerebrovascular accident Mother Cardiac abnormality Social History Social History (Updated 08/13/25 @ 14:44 by Starr Holland PA-C) Social History: Lives home alone with no pets. Surrogate medical decision maker: Annemarie Ortiz, granddaughter. Code status: Full code. Smoking status: Never smoker Alcohol intake: never Substance use: never Substance use type: does not use Lack of Transportation: No Lack of Food: Never True Current Housing: I Have Housing Concerned About Future Housing: No Difficulty Paying Gas/Electric Bills: No Difficulty Paying for Meds: No Currently Unemployed: No Education: Bachelor's Degree Difficulty w/ Childcare or Family Care: No Spiritual care concerns: No Meds Home Medications and Allergies Home Medications ?Medication ?Instructions ?Recorded ?Confirmed ?Type acetaminophen 500 mg tablet 1,000 mg PO TID PRN Pain ( Scale 10/21/23 08/12/25 History Score 1-3) amiodarone 200 mg tablet 100 mg PO DAILY 10/21/23 History hydrocortisone 2.5 % topical cream 1 applic RECTAL WAN LY PRN 10/21/23 08/12/25 History with perineal applicator Hemorrhoids melatonin 3 mg tablet 3 mg PO HS PRN Insomnia 11/1208/12/25 History timolol 0.25 % eye drops 1 drp EACH EYE Q12H 10/21/23 08/12/25 History walker #1 ea 01/15/25 08/12/25 Rx apixaban 2.5 mg tablet (Eliquis) 2.5 mg PO Q12H 08/12/25 History pantoprazole 40 mg tablet,delayed 40 mg PO DAILY 08/1208/12/25 History release polysaccharide iron complex 150 mg 150 mg PO DAILY 08/12/25 History iron capsule rosuvastatin 5 mg tablet 5 mg PO .QOD 08/12/25 History sacubitril 24 mg-valsartan 26 mg 1 tablet PO BID 08/1208/12/25 History tablet benzonatate 100 mg capsule 100 mg PO Q6H PRN Cough #30 caps 08/14/25 Rx ferrous sulfate 325 mg (65 mg 325 mg PO DAILY #30 tabs 08/14/25 Rx iron) tablet (FeroSul) Allergies Allergy/AdvReac Type Severity Reaction Status Date / Time Sulfa (Sulfonamide Allergy Severe Swelling Verified 08/13/25 07:38 Antibiotics) of Lip/Tongue/Throat Vital Signs Vital Signs - 24 hr 08/23/25 18:46 08/23/25 18:46 08/23/25 19:01 Pulse Rate 76 75 73 Respiratory Rate 14 14 15 Blood Pressure 154/73 H 154/73 H 151/58 H Pulse Oximetry 97 98 96 Oxygen Delivery Room Air 08/23/25 19:15 08/23/25 19:30 08/23/25 20:13 Pulse Rate 75 78 80 Respiratory Rate 13 15 18 Blood Pressure 152/60 H 137/70 132/71 Pulse Oximetry 99 97 96 Oxygen Delivery 08/24/25 01:00 08/24/25 01:01 Pulse Rate 74 79 Respiratory Rate 16 18 Blood Pressure 135/76 140/71 Pulse Oximetry 100 96 Oxygen Delivery Exam Const: General: comfortable and no acute distress HENMT: Mouth: Yes moist mucous membranes Eyes: Pupils: Equal, round and reactive pupils present Neck: Neck: supple Resp: Effort & Inspection: normal respiratory effort Auscultation: clear to auscultation bilaterally Cardio: Rate: regular rate Rhythm: regular rhythm GI: Inspection: non-distended GI Palp: Yes Soft to palpation Neuro: Motor exam (neuro): 5/5 motor strength present throughout Extrem: General: no edema Results Labs Labs: Short CBC 08/23/25 Range/Units 21:03 WBC 10.5 H (4.5-10.0) K/mm3 Hgb 8.5 L (12.0-15.0) g/dL Hct 28.1 L (37.0-47.0) % Plt Count 154 (150-375) k/mm3 BMP 08/23/25 21:03 Sodium 129 L Potassium 3.9 Chloride 102 Carbon Dioxide 22 BUN 15 Creatinine 1.06 H Glucose 93 Calcium 8.9 Cardiac Enzymes 08/23/25 Range/Units 21:03 Total Creatine Kinase 43 (30-135) U/L Liver Function 08/23/25 Range/Units 21:03 Total Bilirubin 0.6 (0.2-1.3) mg/dL AST 25 (14-36) U/L ALT 15 (6-35) U/L Alkaline Phosphatase 78 (38-126) U/L Albumin 4.0 (3.5-5.1) g/dL Assessment and Plan Assessment and plan (1) Closed sacral fracture: Code(s): S32.10XA - Unspecified fracture of sacrum, initial encounter for closed fracture Status: Acute (2) Closed hip fracture: Code(s): S72.009A - Fracture of unspecified part of neck of unspecified femur, initial encounter for closed fracture Status: Acute (3) Closed fracture of pubic ramus: Code(s): S32.599A - Other specified fracture of unspecified pubis, initial encounter for closed fracture Status: Acute (4) Closed fracture of symphysis pubis: Code(s): S32.599A - Other specified fracture of unspecified pubis, initial encounter for closed fracture Status: Acute (5) Fall: Code(s): W19.XXXA - Unspecified fall, initial encounter Status: Acute Plan Patient presents with multiple fractures of right hip, pubic symphysis, pubic ramus, sacrum. NPO. Pain control. Orthopedic surgery and neurosurgery consultations. Hold PRECISION AIRCRAFT STRUCTURE ASSEMBLER Eliquis. Telemetry. Fall precaution, bed risk. SCDs. Resume PRECISION AIRCRAFT STRUCTURE ASSEMBLER Protonix, hold PRECISION AIRCRAFT STRUCTURE ASSEMBLER Entresto. Resume PRECISION AIRCRAFT STRUCTURE ASSEMBLER amiodarone of blood pressure and heart rate allow. Saline lock IV. Monitor volume status with daily weights, intake/output. Prior Studies I have reviewed the following patient records and this information was taken into consideration when formulating the assessment and plan.: previous labs Time Spent with Patient Time with patient: less than 45 minutes Hospitalist MIPS Advance Care Plan I have confirmed that the patient's Advanced Care Plan is present, code status is documented, or surrogate decision maker is listed in patient medical record.: Yes Medication Reconciliation I have utilized all available resources to obtain, update and review the patients current medications (includes all prescriptions, OTC, herbals, cannabis, and nutritional supplements).: Yes
[2025-08-24 01:12] LABS: Add Urine Microscopic? YES; Appearance Urine Clear (Clear); Glucose Urine UA Negative (Negative); Leukocyte Esterase Ur Trace LEU/UL (Negative); Nitrate Urine Negative (Negative); Non Pathogenic Casts 0-2; Specific Grav Ur 1.013 (1.001-1.035)
--- NOTE | 2025-08-24 01:19 | PC.NURSE ---
pharmacy called this RN and reports that both the hospitalist and EDP have put in for Morphine PRN. this RN spoke to EDP Sergio and GERALD to stop his order.
[2025-08-24] MEDS: MORPHINE SULFATE (*CRX) 4 MG/ML INJ 2 MG IV PUSH ×5 (01:48→19:51)
--- NOTE | 2025-08-24 05:39 | ECG_ITS ---
Test Date: 2025-08-24 07:03:25 Measurements Intervals [place] Rate: 99 P: 82 ND: 194 QRS: -58 QRSD: 168 T: 74 QT: 410 QTc: 527 Interpretive Statements SINUS RHYTHM LEFT AXIS DEVIATION LEFT BUNDLE BRANCH BLOCK ABNORMAL ECG Compared to ECG 08/12/2025 19:03:39 NO SIGNIFICANT CHANGE Electronically Signed On 08-24-2025 09:11:39 INSURANCE INVESTIGATOR by Chung Estrada D.O.
[2025-08-24 06:10] LABS: Hematocrit 26.3 % (37.0-47.0); Hemoglobin 8.0 g/dL (12.0-15.0); Immature Granulocyte Percent A 0.4 % (0-0.5); Lymphocytes Absolute Auto 1.00 K/mm3 (0.9-3.2); Mean Corpuscular HGB Conc 30.4 g/dl (32-36); Mean Corpuscular Hemoglobin 26.0 pg (26-34); Mean Corpuscular Volume 85.4 fl (80-100); Nucleated Red Blood Cells Absolute Auto 0.000 K/mm3 (0.0-0.012); Nucleated Red Blood Cells Perc 0.0 % (0.0-0.2); Platelet Count Result 135 k/mm3 (150-375); Red Blood Count 3.08 M/mm3 (4.2-5.4); White Blood Count 7.3 K/mm3 (4.5-10.0)
[2025-08-24 06:21] LABS: INR 1.1; Partial Thromboplastin Time 28.7 Seconds (22.3-36.8); Prothrombin Time 14.5 Seconds (11.1-14.7)
[2025-08-24 06:33] LABS: Anion Gap 4 mmol/L (4-12); Blood Urea Nitrogen 13 mg/dL (7-17); Calcium 8.8 mg/dL (8.4-10.2); Carbon Dioxide 24 mmol/L (22-30); Chloride 102 mmol/L (98-107); Estimated CRCL calculation 32 ml/min; Estimated Glomerular Filt Rate 58; Glucose 98 mg/dL (65-110); Magnesium 1.8 mg/dL (1.6-2.3); Potassium 4.6 mmol/L (3.4-5.0); Sodium 130 mmol/L (137-145)
--- OUTSIDE RECORDS SUMMARY | 2025-08-24 08:11 | XMS_ITS | Encounter Summary ---
Author Organization [facility] Address [address] [place] [address] Phone Care Team Providers Care Trimming Cutter Machine Name Role Phone Ashlee Doyle MD Primary Care Provider [phone] Cruz Lombardi MD Unavailable [phone] Encounter Details Date Type Department Care Team (Latest Contact Info) Description 08/05/2025 Results Follow-Up [facility] [place] [address] [place] [address] Cruz Lombardi MD [facility] [address] [address] IRON W/ IRON BINDING CAPACITY [...] of Assessment Author 80 08/05/2025 10:47 AM YARDAGE CALLER Brandon, Ursula A, RMA * Resp Answer Date of Assessment Author 18 08/05/2025 10:47 AM YARDAGE CALLER Brandon, Ursula A, RMA * SpO2 Answer Date of Assessment Author 99 08/05/2025 10:47 AM YARDAGE CALLER Brandon, Ursula A, RMA * Question Answer Date of Assessment Author Has the patient fallen twice in the past year without injury or once in the past year with injury? Yes 08/05/2025 10:54 AM YARDAGE CALLER C onrad, Ursula A, RMA Does the patient report or d o you observe difficulty in gait or balance? No 08/05/2025 10:54 AM YARDAGE CALLER Brandon, Ursula A, RMA * Question Answer Date of Assessment Author Initial Score 0 08/05/2025 10:54 AM YARDAGE CALLER Con rad, Ursula A, RMA Little interest or pleasure in doing things Not at all 08/05/2025 10:54 AM YARDAGE CALLER Brandon, Ursula A, RMA Feeling down, depressed, or hopeless Not at all 08/05/2025 10:54 AM YARDAGE CALLER Brandon, Ursula A, RMA * Question Answer Date of Assessment Author Has the patient fallen twice in the past year without injury or once in the past year with injury? Yes 08/05/2025 10:54 AM YARDAGE CALLER C onrad, Ursula A, RMA Does the patient report or d o you observe difficulty in gait or balance? No 08/05/2025 10:54 AM YARDAGE CALLER Brandon, Ursula A, RMA * Question Answer Date of Assessment Author Initial Score 0 08/05/2025 10:54 AM YARDAGE CALLER Con rad, Ursula A, RMA Little interest or pleasure in doing things Not at all 08/05/2025 10:54 AM YARDAGE CALLER Brandon, Ursula A, RMA Feeling down, depressed, or hopeless Not at all 08/05/2025 10:54 AM YARDAGE CALLER Brandon, Ursula A, RMA * Over the past 2 weeks, how often have you been bothered by any of the following problems? Question Answer Date of Assessment Author Patient Health Questionnaire -2 Score 0 08/05/2025 10:54 AM YARDAGE CALLER Brandon, Ursula A, RMA documented as of this encounter Mental Status * BP Answer Entry Date Author 130/62 08/05/2025 10:47 AM YARDAGE CALLER Brandon, Ursula A, RMA * Temp Answer Entry Date Author 98 08/05/2025 10:47 AM YARDAGE CALLER Brandon, Ursula A, RMA * Pulse Answer Entry Date Author 80 08/05/2025 10:47 AM YARDAGE CALLER Brandon, Ursula A, RMA * SpO2 Answer Entry Date Author 99 08/05/2025 10:47 AM YARDAGE CALLER Brandon, Ursula A, RMA * Question Answer Entry Date Author Has the patient fallen twice in the past year without injury or once in the past year with injury? Yes 08/05/2025 10:54 AM YARDAGE CALLER C onrad, Ursula A, RMA Does the patient report or d o you observe difficulty in gait or balance? No 08/05/2025 10:54 AM YARDAGE CALLER Brandon, Ursula A, RMA * Question Answer Entry Date Author Initial Score 0 08/05/2025 10:54 AM YARDAGE CALLER Con rad, Ursula A, RMA Little interest or pleasure in doing things Not at all 08/05/2025 10:54 AM YARDAGE CALLER Brandon, Ursula A, RMA Feeling down, depressed, or hopeless Not at all 08/05/2025 10:54 AM YARDAGE CALLER Brandon, Ursula A, RMA documented in this encounter Plan of Treatment Upcoming Encounters Date Type Department Care Team (Late st Contact Info) Description 09/02/2025 10:45 AM YARDAGE CALLER Office Visit [facility] [address] [address] Cruz Lombardi MD [address] [facility] [address] [address] 09/02/2025 11:00 AM YARDAGE CALLER Clinical Support [facility] [address] [address] Nurse, [facility] documented as of this encounter Visit Diagnoses Not on filedocumented in this encounter Care Teams Trimming Cutter Machine Relationship Specialty Start Date End Date Ashlee Doyle MD [address] [place] [address] PCP - General Internal Medicine 07/22/25 Cruz Lombardi MD [address] [place] [address] Consulting Physician Oncology 07/24/25 documented as of this encounter
--- OUTSIDE RECORDS SUMMARY | 2025-08-24 08:12 | XMS_ITS | Continuity of Care Document ---
Author Organization [place] [facility] [employer] [facility] [place] Address [address] [facility] [address] [place] [address] Care Team Providers Care Guide Delegate Name Role Phone LD REYNOSO Primary Care Provider LD REYNOSO Referring Provider Assessment Encounter Date Assessment Date Assessment LastModified by Organization Details LastModified Time 07/25/2025 07/25/2025 This note is dictated and transcribed by [employer]. Ribbon Lapper Tender variances may occur. Despite proofreading, typographical errors may occur. Occasional wrong-word or 'omule-l-sijz' substitutions may have occurred due to the inherent limitations of voice recording. Read the chart carefully and recognize, using context, where substitutions have occurred. [email or web address] Not available 07/25/2025 12:14:15 Plan of Treatment Reminders Order Date Submit Date Provider Last Modified By Organization Details Last Modified Time Details Appointments Any 5 2025 09:45A M ELOISA Craig Not available Not available Not available Establish ed Patient 10 2025 11:00A M Nadeem Blair DPM Not available Not available Not available Lab None recorded. Referral None recorded. Procedures None recorded. Surgeries None recorded. Imaging None recorded. Medication Orders None recorded. Patient TargetsNo targets recorded. Patient InstructionsNo instructions recorded. Reason for Referral None Reported. Problems Name Problem SNOMED Code Status Onset Date Resolution Date Notes Provider Name and Address Organization Details Recorded Time Heartburn 35394711 Active 2017 Not Available [facility] 3 20:02:36 Arthritis 0867548 Active 2017 Not Available [facility] 3 20:02:37 Migraine 12857158 Active 2017 Not Available [facility] 3 20:02:37 Hammer toe 145816959 Active 2017 Not Available [facility] 3 20:02:36 Onychomyc osis of toenails 766335563 Completed 201712/24/2020 Not Available [facility] 3 20:02:37 Bunion 770158391 Active 2017 Not Available [facility] 3 20:02:37 Injury of great toenail 172090709 Active 2018 Not Available [facility] 3 20:02:36 Unable to cut own toenails 196857902 Active 2020 Not Available [facility] 3 20:02:36 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 Nadeem Blair, DPOanh [address] [facility], [address], [address] , [address] 5 12:14:26 Foot callus 538594286 Active 2020 Not Available [facility] 3 20:02:36 Porokerat osis 219490731 Active 2020 Not Available [facility] 3 20:02:37 Bilateral osteoarth ritis of knees 29573577291 9107 Active 2021 MARIE Desai, [place] [email or web address] 5 10:52:14 Pain of right knee joint 17128498960 4100 Active 2021 Not Available [facility] 3 20:02:37 Pain of left knee joint 23325130234 4107 Active 2022 Not Available [facility] 3 20:02:37 Pain of bilateral knee joints 53656824145 4104 Active 2022 MARIE Desai, [place] - [email or web address] 5 10:52:21 Osteoarth ritis 135633588 Active 2022 EUFEMIA Clarke, [facility] [employer] [facility] 3 10:30:33 Pain of left shoulder joint 94972083150 823141 Active 2022 Gena moy, [facility] [employer] [facility] 3 10:52:50 Tendiniti s of left rotator cuff 37217664375 901010 Active 2022 Hipolito Palm MD [address], [place], [address] , [facility] [employer] [facility] 3 10:57:44 Pain in bilateral feet 94085469643 981181 Active 2023 Nadeem Blair DPM [address], [place], [address] , [facility] [employer] [facility] 4 09:12:06 Hammer toe 210291114 Active 2023 Nadeem Blair DPM [address], [place], [address] , [facility] [employer] [facility] 4 19:15:41 Pain in toe 819348884 Active 2023 Nadeem Blair DPM [address], [place], [address] , [facility] [employer] [facility] 4 19:16:13 Callosity on toe 522101485 Active 2024 Nadeem Blair DPM [address], [place], [address] , [facility] [employer] [facility] 5 12:47:13 Bilateral metatarsa lgia 35708998391 089409 Active 2024 Nadeem Blair DPM [address], [place], [address] , [facility] [employer] [facility] 5 12:14:20 Notes:allergies, eye problem s, wears glasses, vision problems, ringing in ears Problem Notes None recorded. Procedures Surgical History Date Name Laterality Status Provider Name and Address Organization Details Recorded Time 5 Nail Debridement completed Nadeem Blair DPM [address], [place], [address], [facility] 07/25/2025 12:13:53 5 Nail Debridement completed Nadeem Blair DPM [address], [place], [address], [facility] 12/11/2024 12:47:06 5 Callus Debridement 2-4 completed Nadeem Blair DPM [address], [place], [address], [facility] [employer] [facility] 12/11/2024 12:46:57 4 Nail Debridement completed Nadeem Blair DPM [address], [place], [address], [facility] 01/17/2024 19:14:53 4 Callus Debridement 2-4 completed Nadeem Blair DPM [address], [place], [address], [facility] [employer] [facility] 01/17/2024 19:14:40 4 Nail Debridement completed Nadeem Blair DPM [address], [place], [address], [facility] [employer] [facility] 10/06/2023 12:01:21 4 Callus Debridement 2-4 completed Nadeem Blair DPM [address], [place], [address], [facility] 10/06/2023 12:01:14 3 Ortho - Cortisone Injection completed Hipolito Palm MD [address], [place], [address], [facility] [employer] [facility] 04/26/2023 10:49:51 3 Ortho - Cortisone Injection completed Hipolito Palm MD [address], [place], [address], [facility] [employer] [facility] 01/18/2023 10:57:27 Imaging Results None recorded. Procedure Notes None recorded. Medical Equipment None Reported. Allergies Allergen ID Allergen Name Allergen Category Reaction Reaction Severity Criticality Documentation Date Start Date Code Code System Note Provider Name and Address Organization Details Recorded Time 75205 sulfur dioxide medicatio n facial swelling Not available Not available 11/17/2022 07760 79 RxNorm Not Available [facility] 20:04:47 Medications Name Sig Start Date Stop [...] t Available doxycycline hyclate 100 mg capsule TAKE 1 CAPSULE BY MOUTH TWICE A DAY active Not Available Not Available No t Available ketoconazol e 2 % shampoo 08/21 [...] 1 TABLET DAILY FOR 4 DAYS DIRECTED 06/24 completed Not Available Not Available Not Available [...] 1 CAPSULE EVERY OTHER DAY BY MOUTH active Not Available Not Available No t [...] 40 mg by injection route. [address] [facility]: 0003- [phone]- 20 Not Available Not Available [...] Not Avai lable cephalexin 500 mg capsule TAKE 1 CAPSULE BY MOUTH EVERY 12 HOURS active Not Available Not Available No t Available pantoprazol e 40 mg tablet,patricia yed [...] on nasal spray,suspe nsion SPRAY 1 SPRAY INTO EACH NOSTRIL EVERY DAY active Not Available Not Available [...] EYE FOUR TIMES DAILY FOR 7-10 DAYS active Not Available Not Available No t Available cholestyram ine (with sugar) 4 gram [...] 40 mg by injection route. 08/[address] [facility] [phone] Not Available Not Available Not [...] weight Heart rate Respiratory rate Oxygen saturation Systolic And Diastolic Provider Name and Address Organization Details Last Updated DateTime 5 157.48 cm 21.2 kg/m2 85496.7 1 g 75 /min 14 /min 97 % 96/42 mm[Hg] Kristy Mendoza [place] [employer] [facility] 11:56:53 Social History Question Answer Notes LastModified by [employer] Details LastModified Time Tobacco Smoking Status Never Smoker Not Available [facility] 11/17/2022 20:01:47 What Was The Date Of Your Most Recent Tobacco Screening? 06/27/2025 [email or web address] Information not available 06/27/2025 Sex: Unknown Functional Status Question Answer Note LastModified by [employer] Details LastModified Time What is your level of alcohol consumption? None [id number] Information not available 11/17/2022 Mental Status None recorded. Family History Relationship Description Onset Age of this Age Resolved Age Notes LastModified by Organization Details LastModified Time Mother Heart disease [id number] Not available 11/17/2022 20:01:48 Daughter Diabetes mellitus [email or web address] Not available 2022 10:37:56 Medical History Condition Response HEART ARRHYTHMIA Y OSTEOPOROSIS Y URINARY/BLADDER/KIDNEY PROBLEMS Y ARTHRITIS Y USE OF BLOOD THINNERS Y CANCER: SPECIFY Y Gynecological HistoryNo gynecological history recorded. Obstetrics History GPAL:G 0 P 0 0 0 0 Past Encounters Encounter ID Performer Location Encounter Start Date Encounter Closed Date Diagnosis/Indication Diagnosis SNOMED-CT Code Diagnosis ICD10 Code Diagnosis IMO Codes Diagnosis Note [id number] Jude Leos MD [facility] [address] [facility] [address] [place] [address] 06/27/2025 10:47:36 06/27/2025 11:08:46 Bilateral osteoarthritis of knees 6744408483 81587 M17.0 Pain of bi lateral knee joints 2250798346 59678 M25.561 M25.015 [id number] Nadeem Blair DPM [facility] [place] [address] [facility] [address] [place] [address] 07/25/2025 11:53:30 07/26/2025 15:41:26 Bilateral metatarsalgia 2920346710 3688107 M77.41 M77.42 21053109 continue orthoticsr ecommend supportive shoe gear such as new balanceric e therapyfol low-up in 3 months Dystrophia unguium 07220 009 L60.3 1010 Nails debrided without incidentFo llow-up 3 months as needed Health Concerns Section Related Observation LastModified by Organization Detai ls LastModified Time None Recorded Concern Status LastModified by Organization Details LastModified Time None Recorded Payers Encounter Date Sequence Insurance Name Policy Number Policy Tai Covered Member ID Tai Member ID Guarantor Name 07/25/2025 1 [place] Agustina Cordova [id number] Agustina Cordova 07/25/2025 2 [place] [id number] Agustina Cordova [id number] Agustina Cordova Notes Date Note Type Note Provider Name and Address Organization Details Recorded Time 07/25/2025 text/html Patient is an 89-year-old female who returns the office for nail care as she has difficulty bending over to cut her nails. Patient also has bilateral foot pain she states that she continues have bunion deformities which are not problematic but she has pain under the forefoot area. Patient did get hlaf-wva-xkynbdd orthotics she states she also got new shoe gear she did not bring her orthotics with her. Patient states that she has not had any injury of the foot but does have some mild bruising over the 3rd toe of the left foot. Patient states that she is on chronic anticoagulation which could be secondary to the bruising she denies any pain to the area bruising. Patient denies any other complaints. Nadeem Blair DPM [address] [facility] [address], [place], [address], [facility] [employer] [facility] 07/25/2025 12:14:55 OBGyn Episode No OBEpisode recorded.
--- OUTSIDE RECORDS SUMMARY | 2025-08-24 08:12 | XMS_ITS | Clinical Summary ---
Author Organization [facility] Address [address] [place] [address] Care Team Providers Care Cdl Bulk Driver Name Role Phone Miscellaneous, Not In File Unavailable Unava ilable Sheryl Latham MD Unavailable [phone] Ashlee Doyle MD Primary Care Provider [phone] Jonh Junior MD Unavailable [phone] Allergies Active Allergy Reactions Criticality Noted Date [...] ready for that. -home spironolactone, -02/21 BNP >47653, ordered Cardio c/s, TTE, Trop, EKG, tele [...] stable from prior notes from [facility] - Fundus exam and photos appear stable [...] peel right eye (OD) 2007 at [facility]. Asked patient to bring notes or forward prior to next visit. Follows with Dr. Izaguirre at [facility]. Will have second opinion with [facility] next available per patient request. CVA [...] PM CDT): -chronic since 2020, following with director drug safety and Endocrinology,not on home meds, encouraging fluid [...] exertion 06/06/2018 Coronary artery disease invo lving [place] coronary artery of [place] heart without angina pectoris 06/06/2018 Assessment [...] Type Department Care Team Description 08/21/2025 Telephone [facility] Cardiology [facility] [facility] 8th [place] [address] [place] [address] Jonh Junior MD 06/30/2025 Results Follow-Up [facility] Cardiology [address] [facility] Floor 1, [address] [place] [address] Jonh Junior MD Pulmonary Function Test - 06/21/2025 Telephone [facility] Cardiology [address] [facility] 8th [place] [address] [place] [address] Jonh Junior MD 06/20/2025 11:45 AM CDT Office Visit [facility] Oncology [address] [facility] Floor 6 [place] [address] Yulia Nolasco, ARMOND 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) 06/20/2025 11:15 AM CDT Lab [facility] - Lab Collection [address] [facility] Floor 6 [place] [address] 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) 06/20/2025 10:45 AM CDT Lab [facility] Oncology Lab [address] [facility] Floor 6 [place] [address] 06/20/2025 Telephone [facility] Cardiology [address] [facility] 8th [place] [address] [place] [address] Kevin Aliza 06/19/2025 Telephone [facility] Cardiology [address] [facility] 8th [place] [address] [place] [address] Jonh Junior MD 06/17/2025 11:45 AM CDT Office Visit [facility] Cardiology [address] [facility] [address] 1, [address] [place] [address] Jonh Junior MD 06/17/2025 9:46 AM CDT - 06/17/2025 11:59 PM CDT Hospital Encounter [facility] PFT Lab [address] [facility] [address] 1, [address] [place] [address] Ischemic cardiomyopathy; Essential hypertension; On amiodarone therapy Discharge Disposition: Discharge to home or self care from Last 3 Months Immunizations Immunization Administration Dates Next Due COVID-19 mRNA (magnify360) 0.3 m L (30 mcg) vaccine (12 [...] on file Legal Sex Female 2:10 AM 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 Gender Identity Not on file Sexual Orientation [...] MD LAB BLOOD ORDERABLES Final Re sult [facility] Department [place] [address] * (ABNORMAL) Differential, auto (06/20/2025 11:29 AM CDT) Pathologist [facility] Neutrophil abs 3.79 1.50 - 6.50 K/cumm Comment:Testing performed by : [facility], [address] [place] [phone] Lymphocyte abs 1.88 0.80 - 3.30 K/cumm BENJAMIN SETH Comment:Testing performed by : [facility], [address] [place] [phone] Monocyte abs 0.97(H) 0.20 - 0.80 K/cumm [facility] Comment:Testing performed by : [facility], [address] [place] [phone] Eosinophil abs 0.13 0.00 - 0.50 K/cumm [facility] Comment:Testing performed by : [facility], [address] [place] [phone] Basophil abs 0.05 0.00 - 0.10 K/cumm [facility] Comment:Testing performed by : [facility], [address] [place] [phone] Neutrophil pct 55.6 % [facility] Comment: Interpretive Data Percent cell count reference ranges are not reported, since discordance with absolute values may lead to misinterpretation of CBC data. Current Interpretive Data was last revised on 2017. Testing performed by: [facility], [address] [place] [address] Lymphocyte pct 27.6 % CERNER [facility] Comment: Interpretive Data Percent cell count reference ranges are not reported, since discordance with absolute values may lead to misinterpretation of CBC data. Current Interpretive Data was last revised on 2017. Testing performed by: [facility], [address] [place] [phone] Monocyte pct 14.2 % [facility] Comment: Interpretive Data Percent cell count reference ranges are not reported, since discordance with absolute values may lead to misinterpretation of CBC data. Current Interpretive Data was last revised on 2017. Testing performed by: [facility], [address] [place] [phone] Eosinophil pct 1.8 % [facility] Comment: Interpretive Data Percent cell count reference ranges are not reported, since discordance with absolute values may lead to misinterpretation of CBC data. Current Interpretive Data was last revised on 2017. Testing performed by: [facility], [address] [place] [phone] Basophil pct 0.7 % [facility] Comment: Interpretive Data Percent cell count reference ranges are not reported, since discordance with absolute values may lead to misinterpretation of CBC data. Current Interpretive Data was last revised on 2017. Testing performed by: [facility], [address] [place] [phone] Blood 06/20/2025 11:2 9 AM CDT 06/20/2025 11:37 AM CDT us Sheryl Latham MD LAB BLOOD ORDERABLES Final Re s[facility] Department [place] [address] * (ABNORMAL) CBC with auto differential (06/20/2025 11:29 AM CDT) WBC 6.81 3.80 - 9.90 K/cumm Comment:Testing performed by : [facility], [address] [place] [address] Hgb 8.4(L) 11.9 - 15.5 g/dL C[facility]ER [facility] Comment:Testing performed by : [facility], [address] [place] [address] Hct 26.3(L) 35.6 - 45.5 % [facility] Comment:Testing performed by : [facility], [address] [place] [address] Plt 180 150 - 400 K/cumm [facility]ER [facility] Comment:Testing performed by : [facility], [address] [place] [address] MPV 6.9 6.8 - 10.4 fL [facility] Comment:Testing performed by : [facility], [address] [place] [address] RBC 3.22(L) 3.90 - 5.20 M/cumm CERAKHIL [facility] Comment:Testing performed by : [facility], [address] [place] [address] MCV 81.5 81.3 - 96.4 fL [facility] Comment:Testing performed by : [facility], [address] [place], [place] [phone] MCH 25.9(L) 27.1 - 33.3 pg [facility] Comment:Testing performed by : [facility], [address] [place], [place] [phone] MCHC 31.8(L) 32.3 - 35.7 g/dL [facility]ERAK[facility]IL [facility] Comment:Testing performed by : [facility], [address] [place], [place] [phone] RDW CV 15.3(H) 11.1 - 14.9 % [facility] Comment:Testing performed by : [facility], [address] [place], [place] [phone] NRBC abs 0.00 0.00 - 0.01 K/cumm [facility] Comment:Testing performed by : [facility], [address] [place], [place] [phone] Blood 06/20/2025 11:2 9 AM CDT 06/20/2025 11:37 AM CDT Sheryl Latham MD LAB BLOOD ORDERABLES Final Re sult Performing Organization Address City/[facility]/ZIP Co de Phone Number [facility] Department [place] [address] * Lactate dehydrogenase (LD) (06/20/2025 11:29 AM CDT) Pathologist [facility] Lactate dehydrogenase (LDH) 221 100 - 250 Units/L Blood 06/20/2025 11:2 9 AM CDT 06/20/2025 11:37 AM CDT Sheryl Latham MD LAB BLOOD ORDERABLES Final Re sult Performing Organization Address City/[facility]/ZIP Co de Phone Number [facility] Department [place] [address] * (ABNORMAL) Comprehensive metabolic panel (06/20/2025 11:29 AM CDT) Sodium 136 135 - 145 mmol/L Potassium, pl 4.8 3.3 - 4.9 mmol/L [facility] Chloride 102 97 - 110 mmol/L [facility] CO2 25 22 - 32 mmol/L [facility] Anion gap 9 2 - 15 mmol/L [facility] BUN 23 6 - 25 mg/dL [facility] Creatinine 1.16(H) 0.60 - 1.10 mg/dL [facility] Glucose 86 70 - 199 mg/dL [facility] Comment: Interpretive Data Fasting glucose >/= [...] 2022. Calcium 9.1 8.5 - 10.3 mg/dL [facility] Bilirubin, total 0.2 0.1 - 1.2 mg/dL [facility] Protein, pl 6.3(L) 6.5 - 8.5 g/dL [facility] Albumin 4.1 3.5 - 5.0 g/dL [facility] Alk phos 77 40 - 130 Units/L [facility] ALT 11 7 - 45 Units/L [facility] AST 20 10 - 45 Units/L [facility] Blood 06/20/2025 11:2 9 AM CDT 06/20/2025 11:37 AM CDT us Sheryl Latham MD LAB BLOOD ORDERABLES Final Re sult [facility] Department [place] [address] * Pulmonary Function Test - (06/17/2025 10:31 AM CDT) FVC PRE 2.11 L [facility] FVC %PRE PRED 88 % [facility] FEV1 PRE 1.38 L [facility] FEV1 %PRE PRED 77 % [facility] FEV1/FVC PRE 65.3 % [facility] FRC PL PRE 2.[address] [facility] FRC PL %PRE PRED 94 % [facility] RV PRE 1.78 L [facility] RV %PRE PRED 70 % [facility] TLC PRE 3.91 L [facility] TLC %PRE PRED 78 % [facility] DLCO PRE 11.2 ml/min/mmH g [facility] DLCO %PRE PRED 63 % [facility] Anatomical Region Laterality Modality PFT 06/17/2025 9:53 AM CDT Narrative 06/20/2025 6:37 PM CDT [facility] amiodarone therapy, pft's for toxicity surveillance PFT [...] and %HbO2 is age dependent. However, the [facility] defines hypoxemia as a PaO2 <56 mm Hg or a %HbO2 <89%. Starting on September of 2024 the [facility] utilizes race neutral GLI Global normative equations. Jonh Junior MD PFT ORDERABLES Final Result * BONE MINERAL DENSITY (04/05/2017) Anatomical Region Laterality Modality Radiographic Christi ging Narrative 04/05/2017 Ordered by an unspecified provider. Historical Provider IMDelfina DXA PROCEDURES Final Result from Last 3 Months or Most Recently Relevant to Health Maintenance Insurance MEDICARE [facility] MEDICARE [facility] FEDERAL MEDICARE ANTHEM ACCESS CHOICE ANTHEM ACCESS MEDICARE [facility] Advance Directives For more information, please contact: [phone] * Full Code (Latest Code Status on [...] 4:54 AM 03/24/2021 6:20 PM Care Teams Cdl Bulk Driver Relationship Specialty Start Date End Date Ashlee Doyle MD [address] [place] [address] PCP - General Internal Medicine 09/05/23 Miscellaneous, Not In File 03/24/21 Sheryl Latham MD Medical Oncologist/Resolution Agent Medical Oncology 05/12/21 Jonh Junior MD [address] [place] [address] Referring Physician Cardiology 09/05/23
--- OUTSIDE RECORDS SUMMARY | 2025-08-24 08:12 | XMS_ITS | Encounter Summary ---
Author Organization [facility] Address [address] [place] [address] Phone Care Team Providers Care Phlebotomy Services Technician Name Role Phone Miscellaneous, Not In File Unavailable Unava ilable Sheryl Latham MD Unavailable [phone] Ashlee Doyle MD Primary Care Provider [phone] Jonh Junior MD Unavailable Encounter Details Date Type Department Care Team (Late st Contact Info) Description 06/30/2025 Results Follow-Up [facility] Medicine Cardiology [address] [facility] [address], [address] [place] [address] Jonh Junior MD [address] [facility] [address] [place] [address] Pulmonary Function Test - Social [...] on file Legal Sex Female 2:10 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 Gender Identity Not on file Sexual Orientation Not on file Occupation Industry Job Start Date Job End Date retired Not on file Not on file Not on file documented as of this encounter Plan of Treatment Not on file documented as of this encounter Visit Diagnoses Not on filedocumented in this encounter Care Teams Phlebotomy Services Technician Relationship Specialty Start Date End Date Ashlee Doyle MD [address] [place] [address] PCP - General Internal Medicine 09/05/23 Miscellaneous, Not In File 03/24/21 Sheryl Latham MD Medical Oncologist/Account Development Specialist Medical Oncology 05/12/21 Jonh Junior MD [address] [place] [address] Referring Physician Cardiology 09/05/23 documented as of this encounter
--- OUTSIDE RECORDS SUMMARY | 2025-08-24 08:12 | XMS_ITS | Data Portability ---
Author Organization [place] - [facility] [employer], Main Office Address [address] [place] [address] Care Team Providers Care General Doc Name Role Phone LD REYNOSO Primary Care Provider LD REYNOSO Referring Provider Assessment Encounter Date Assessment Date Assessment LastModified by Organization Details LastModified Time 11/20/2024 11/20/2024 The patient has severe primary [...] This note is dictated and transcribed by [employer]. Central Office Maintainer variances may occur. Despite proofreading, typographical errors may occur. Occasional wrong-word or 'joeud-b-vxzn' substitutions may have occurred due to the inherent limitations of voice recording. Read the chart carefully and recognize, using context, where substitutions have occurred. Not available 12/11/2024 12:47:10 03/28/2025 03/28/2025 The patient has severe primary osteoarthritis both knee joints as described. New x-rays today do not show much change in either knee. At her request under sterile conditions I injected both knee joints in the office today with 4 cc 0.5% bupivacaine and 20 mg of Kenalog each. The patient tolerated both injections well. I will see her back as needed we can do this again in 3 months if necessary she voiced understanding and agree with the above plan she will call for any further problems difficulties or questions. Not available 03/28/2025 10:52:15 06/27/2025 06/27/2025 The patient has severe primary osteoarthritis both knees as described. At her request under sterile conditions I injected both knee joints in the office today with 4 cc 0.5% bupivacaine and 20 mg of Kenalog each. The patient tolerated both injections well I will see her back in 3 months if necessary she voiced understanding agrees with the above plan she will call for any further problems difficulties or questions. Not available 06/27/2025 11:12:58 07/25/2025 07/25/2025 This note is dictated and transcribed by [employer]. Central Office Maintainer variances may occur. Despite proofreading, typographical errors may occur. Occasional wrong-word or 'otccm-q-fcsz' substitutions may have occurred due to the inherent limitations of voice recording. Read the chart carefully and recognize, using context, where substitutions have occurred. Not available 07/25/2025 12:14:15 Plan of Treatment Reminders Order Date Submit Date Provider Last Modified By Organization Details Last Modified Time Details Appointments Any 5 2025 09:45A M ELOISA Craig Not available Not available Not available Establish ed Patient 10 2025 11:00A Oanh Blair DPM Not available Not available Not available Lab None recorded. Referral None recorded. Procedures injection /aspirati on joint/bur sa (PROC) 2024 025 [email or web address] In-Office Order, Internal Use Only DO Not Attach Compendium DO Not Attach Compendium, Do Not Delete/merge, [id number] 06/27/2025 10:54:58 injection /aspirati on joint/bur sa (PROC) 2024 025 [email or web address] In-Office Order, Internal Use Only DO Not Attach Compendium DO Not Attach Compendium, Do Not Delete/merge, [id number] 03/28/2025 10:10:57 injection /aspirati on joint/bur sa (PROC) 2024 025 [email or web address] In-Office Order, Internal Use Only DO Not Attach Compendium DO Not Attach Compendium, Do Not Delete/merge, [id number] 11/20/2024 10:34:42 Surgeries None recorded. Imaging XR, knee 2024 025 [email or web address] [facility] [place], [address] [facility], [address], [place], [address], 03/28/2025 12:29:02 Medication Orders bupivacai ne HCl 0.5 % (5 mg/mL) injection solution 2024 025 [email or web address] [facility] [address], [address], 06/27/2025 11:16:53 Kenalog 10 mg/mL suspensio n for injection 2024 025 [email or web address] [facility] [address], [address], 06/27/2025 11:16:53 bupivacai ne HCl 0.5 % (5 mg/mL) injection solution 2024 025 [email or web address] [facility] [address], [address], 03/28/2025 12:29:02 Kenalog 10 mg/mL suspensio n for injection 2024 025 [email or web address] [facility] [address], [address], 03/28/2025 12:29:02 bupivacai ne HCl 0.5 % (5 mg/mL) injection solution 2024 025 [email or web address] [facility] [address], [address], 11/20/2024 11:16:59 Kenalog 10 mg/mL suspensio n for injection 2024 025 [email or web address] [facility] [place], [address] [facility], [place], [address], 11/20/2024 11:16:59 Patient TargetsNo targets recorded. Patient InstructionsNo instructions recorded. Reason for Referral None Reported. Results Created Date Observation Date Name Description Value Unit Range Abnormal Flag Note LastModifiedBy Organization Detail LastModifiedTime 03/28/20 25 XR, knee No observ ation record ed. [email or web address] [facility] [place] [address] [facility], [address], [place], [address], 03/28/2025 10:53:20 Result Notes None recorded. Problems Name Problem SNOMED Code Status Onset Date Resolution Date Notes Provider Name and Address Organization Details Recorded Time Heartburn 53241270 Active 2017 Not Available [facility] 3 20:02:36 Arthritis 6772823 Active 2017 Not Available [facility] 3 20:02:37 Migraine 32908944 Active 2017 Not Available [facility] 3 20:02:37 Hammer toe 449176818 Active 2017 Not Available [facility] 3 20:02:36 Onychomyc osis of toenails 307905103 Completed 201712/24/2020 Not Available [facility] 3 20:02:37 Bunion 390893580 Active 2017 Not Available [facility] 3 20:02:37 Injury of great toenail 920183710 Active 2018 Not Available [facility] 3 20:02:36 Unable to cut own toenails 250037858 Active 2020 Not Available [facility] 3 20:02:36 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 Nadeem Blair DPM [address] [facility], [address], [place], [address] , [facility] [employer] [facility] 5 12:14:26 Foot callus 152501378 Active 2020 Not Available [facility] 3 20:02:36 Porokerat osis 152466959 Active 2020 Not Available [facility] 3 20:02:37 Bilateral osteoarth ritis of knees 10901111854 9107 Active 2021 Aurora Rucker WOODS MANAGER null, [place] [facility] 5 10:52:14 Pain of right knee joint 06620455380 4100 Active 2021 Not Available [facility] 3 20:02:37 Pain of left knee joint 27573508743 4107 Active 2022 Not Available [facility] 3 20:02:37 Pain of bilateral knee joints 37097090265 4104 Active 2022 DIANA DesaiA null, [place] [facility] 5 10:52:21 Osteoarth ritis 040809288 Active 2022 Nalini Mcdonald RMRon null, [place] [facility] 3 10:30:33 Pain of left shoulder joint 58877384838 010438 Active 2022 Gena Esquivel null[place] [facility] [place] [facility] 3 10:52:50 Tendiniti s of left rotator cuff 69589175502 380693 Active 2022 Hipolito Palm MD [address], [address], [place], [address] , [facility] 3 10:57:44 Pain in bilateral feet 91684621094 032525 Active 2023 Nadeem Blair DPM [address], [address], [place], [address] , [facility] 4 09:12:06 Hammer toe 760080349 Active 2023 Nadeem Blair DPM [address], [address], [place], [address] , [facility] 4 19:15:41 Pain in toe 931934074 Active 2023 Nadeem Blair DPM [address], [address], [place], [address] , [employer] 19:16:13 Callosity on toe 505580031 Active 2024 Nadeem Blair DPM [address], [address], [place], [address] , [employer] 5 12:47:13 Bilateral metatarsa lgia 66493150709 268926 Active 2024 Nadeem Blair DPM [address], [address], [place], [address] , [employer] 12:14:20 Notes:allergies, eye problem s, wears glasses, vision problems, ringing in ears Problem Notes None recorded. Procedures Surgical History Date Name Laterality Status Provider Name and Address Organization Details Recorded Time 5 Nail Debridement completed Nadeem Blair DPM [address], [address], [place], [address], [employer] 07/25/2025 12:13:53 5 Nail Debridement completed Nadeem Blair DPM [address], [address], [place], [address], [employer] 12/11/2024 12:47:06 5 Callus Debridement 2-4 completed Nadeem Blair DPM [address], [address], [place], [address], [employer] 12/11/2024 12:46:57 4 Nail Debridement completed Nadeem Blair DPM [address], [address], [place], [address], [employer] 01/17/2024 19:14:53 4 Callus Debridement 2-4 completed Nadeem Blair DPM [address], [address], [place], [address], [employer] 01/17/2024 19:14:40 4 Nail Debridement completed Nadeem Blair DPM [address], [address], [place], [address], [employer] [facility] 10/06/2023 12:01:21 4 Callus Debridement 2-4 completed Nadeem Blair DPM [address], [address], [place], [address], [employer] [facility] 10/06/2023 12:01:14 3 Ortho - Cortisone Injection completed Hipolito Palm MD [address], [address], [place], [address], [employer] 04/26/2023 10:49:51 3 Ortho - Cortisone Injection completed Hipolito Palm MD [address], [address], [place], [address], [employer] 01/18/2023 10:57:27 Imaging Results None recorded. Procedure Notes None recorded. Medical Equipment None Reported. Allergies Allergen ID Allergen Name Allergen Category Reaction Reaction Severity Criticality Documentation Date Start Date Code Code System Note Provider Name and Address Organization Details Recorded Time 14821 sulfur dioxide medicatio n facial swelling Not available Not available 11/17/2022 63639 79 RxNorm Not Available [facility] 3 20:04:47 Medications Name Sig Start Date [...] 40 mg by injection route. 2024 active [facility]: 0003- 0494- 20 Not Available Not [...] 40 mg by injection route. 08/02 completed [facility] 21101 -064- 01 Not Available Not Available Not [...] Updated DateTime 11/20/2024 167.64 cm 19.4 kg/m2 76408.08 g MARIE Desai - [facility] [employer] [facility] 11/20/2024 10:32:52 Date Recorded Body height Body mass index (BMI) Body weight Heart rate Respiratory rate Oxygen saturation Systolic And Diastolic Provider Name and Address Organization Details Last Updated DateTime 167.64 cm 19.4 kg/m2 48158.0 8 g 77 /min 14 /min 97 % 103/57 mm[Hg] Kristy Riley [facility] [employer] [facility] 11:43:01 Date Recorded Body height Body mass index (BMI) Body weight Provider Name and Address Organization Details Last Updated DateTime 03/28/2025 167.64 cm 18.6 kg/m2 11597.12 g [employer] [facility] [employer] [facility] 03/28/2025 10:09:09 Date Recorded Body height Body mass index (BMI) Body weight Provider Name and Address Organization Details Last Updated DateTime 06/27/2025 157.48 cm 21.2 kg/m2 44213.71 g [employer] [facility] [employer] [facility] 06/27/2025 10:52:38 Date Recorded Body height Body mass index (BMI) Body weight Heart rate Respiratory rate Oxygen saturation Systolic And Diastolic Provider Name and Address Organization Details Last Updated DateTime 157.48 cm 21.2 kg/m2 75058.7 1 g 75 /min 14 /min 97 % 96/42 mm[Hg] Kristy Riley [facility] [employer] [facility] 11:56:53 Social History Question Answer Notes LastModified by [employer] Details LastModified Time Tobacco Smoking Status Never Smoker Not Available [facility] 11/17/2022 20:01:47 What Was The Date Of Your Most Recent Tobacco Screening? 06/27/2025 [email or web address] Information not available 06/27/2025 Sex: Unknown Functional Status Question Answer Note LastModified by [employer] Details LastModified Time What is your level of alcohol consumption? None [id number] Information not available 11/17/2022 Mental Status None recorded. Family History Relationship Description Onset Age of this Age Resolved Age Notes LastModified by Organization Details LastModified Time Mother Heart disease [email or web address] [id number] Not available 11/17/2022 20:01:48 Daughter Diabetes mellitus [email or web address] Not available 2022 10:37:56 Medical History Condition Response ARTHRITIS Y USE OF BLOOD THINNERS Y HEART ARRHYTHMIA Y CANCER: SPECIFY Y OSTEOPOROSIS Y URINARY/BLADDER/KIDNEY PROBLEMS Y Gynecological HistoryNo gynecological history recorded. Obstetrics History GPAL:G 0 P 0 0 0 0 Past Encounters Encounter ID Performer Location Encounter Start Date Encounter Closed Date Diagnosis/Indication Diagnosis SNOMED-CT Code Diagnosis ICD10 Code Diagnosis IMO Codes Diagnosis Note [id number] Nadeem Blair DPM [facility] [place] [address] [place] [address] 12/24/2020 00:00:00 12/24/2020 12:30:59 [id number] Nadeem Blair DPM [facility] [address] [address] 01/22/2021 00:00:00 01/22/2021 14:39:24 [id number] Nadeem Blair DPM [facility] [address] [address] 06/09/2021 00:00:00 06/09/2021 15:44:55 [id number] Nadeem Blair DPM [facility] [address] [address] 09/08/2021 00:00:00 09/09/2021 14:14:15 [id number] Nadeem Blair DPM [facility] [address] [address] 12/01/2021 00:00:00 12/07/2021 09:22:09 [id number] Nadeem Blair DPM [facility] [address] [address] 03/11/2022 00:00:00 03/11/2022 15:00:59 [id number] Hipolito Palm MD [facility] [place] [address] [place] [address] 06/15/2022 00:00:00 06/15/2022 10:48:18 [id number] Nadeem Balir DPM [facility] [address] [address] 06/21/2022 00:00:00 06/21/2022 11:25:00 [id number] Hipolito Palm MD [facility] [address] [address] 07/27/2022 00:00:00 07/27/2022 10:58:30 [id number] MD ANITRA Kingston[facility] [address] [address] 10/19/2022 00:00:00 10/19/2022 11:23:43 [id number] Nadeem Blair DPM [facility] [address] [address] 11/04/2022 00:00:00 11/04/2022 13:12:01 [id number] Hipolito Palm MD [place] [address] 01/18/2023 10:25:40 01/18/2023 11:47:03 Osteoarthritis 388253572 M17.0 Pain of le ft shoulder joint 5649250604 8747617 M25.512 Bilateral osteoarthritis of knees 8111994705 30209 M17.0 Tendinitis of left rotator cuff 4834842809 6770892 M67.814 [id number] MD ANITRA [facility] [address] [address] 04/26/2023 10:29:26 04/26/2023 10:54:17 Osteoarthritis 613765574 M17.0 Pain of le ft shoulder joint 1439303672 9255109 M25.512 Bilateral osteoarthritis of knees 9964284790 90645 M17.0 Tendinitis of left rotator cuff 0445828748 0305882 M67.861 [id number] MD ANITRA [facility] [address] [address] 08/02/2023 10:16:49 08/02/2023 11:03:26 Bilateral osteoarthritis of knees 7958807547 46891 M17.0 Pain of bi lateral knee joints 2178383879 23511 M25.561 M25.776 [id number] Nadeem Blair DPM [facility] [address] [place] [address] 10/06/2023 11:40:05 10/17/2023 09:32:53 Dystrophia unguium 54148572 L60.3 Nails debrided without incidentFo llow-up 3 months as needed Foot callus 580343579 L8 4 Debrided without incidentRe commend use of pumice stoneOfflo ading with supportive shoe gear to prevent wounds infectionF ollow-up in 3 months as needed Pain in bi lateral feet 2794963086 2657964 M79.671 M79.672 Secondary to above [id number] Jude Leos MD [facility] [address] [place] [address] 11/08/2023 10:33:08 11/08/2023 11:16:24 Bilateral osteoarthritis of knees 2511736438 36249 M17.0 Pain of bi lateral knee joints 4795039191 12419 M25.561 M25.944 [id number] Nadeem Blair DPM [facility] [address] 01/05/2024 11:30:28 01/18/2024 13:00:27 Hammer toe 095552998 M20.40 continue conservati ve offloading recommend silicone offloading sleeves and wide soft toe box shoe gear Foot callus 167054120 L8 4 Debrided without incidentRe commend use of pumice stoneOfflo ading with supportive shoe gear to prevent wounds infectionF ollow-up in 3 months as needed Dystrophia unguium 57239 009 L60.3 Nails debrided without incidentFo llow-up 3 months as needed Pain in toe 989687722 M7 9.676 secondary to above [id number] Jude Leos MD [facility]_[address] [address] 02/07/2024 10:32:03 02/07/2024 10:48:39 Bilateral osteoarthritis of knees 4355889614 94970 M17.0 Pain of bi lateral knee joints 9431382034 09656 M25.561 M25.916 [id number] Jude Leos MD [place] [address] 05/15/2024 10:17:20 05/15/2024 10:45:39 Bilateral osteoarthritis of knees 8426956475 04943 M17.0 Pain of bi lateral knee joints 4880928598 92722 M25.561 M25.771 [id number] Jude Leos MD [address] [address] 08/21/2024 10:09:13 08/21/2024 10:50:56 Bilateral osteoarthritis of knees 8603156670 79667 M17.0 Pain of bi lateral knee joints 7206740401 99646 M25.561 M25.892 [id number] Jude Leos MD [place] [address] 11/20/2024 10:24:01 11/20/2024 10:47:35 Bilateral osteoarthritis of knees 9459107936 77012 M17.0 Pain of bi lateral knee joints 2419389852 27644 M25.561 M25.156 [id number] Nadeem Blair DPM [facility] [address] [address] 12/11/2024 11:35:22 12/11/2024 12:53:03 Dystrophia unguium 30517023 L60.3 Nails debrided without incidentFo llow-up 3 months as needed Pain in toe 051671272 M7 9.676 secondary to above Unable to cut own toenails 220763919 Z74.1 Callosity on toe 2097705 01 L84 debrided bilateral great toes- calluses without incidentco ntinue use of pumice stonewide shoe gear recommende d [id number] Jude Leos MD [facility] [place] [address] [place] [address] 03/28/2025 10:06:33 03/28/2025 10:40:42 Bilateral osteoarthritis of knees 8295524150 06373 M17.0 Pain of bi lateral knee joints 4690723153 99598 M25.561 M25.258 [id number] Jude Leos MD [facility] [address] [place] [address] 9 06/27/2025 10:47:36 06/27/2025 11:08:46 Bilateral osteoarthritis of knees 1926022931 96416 M17.0 Pain of bi lateral knee joints 8586007719 87227 M25.561 M25.438 [id number] Nadeem Blair DPM [facility] [address] [place] [address] 07/25/2025 11:53:30 07/26/2025 15:41:26 Bilateral metatarsalgia 7722602946 1409375 M77.41 M77.42 62402857 continue orthoticsr ecommend supportive shoe gear such as new balanceric e therapyfol low-up in 3 months Dystrophia unguium 62064 009 L60.3 1010 Nails debrided without incidentFo llow-up 3 months as needed Health Concerns Section Related Observation LastModified by Organization Detai ls LastModified Time None Recorded Concern Status LastModified by Organization Details LastModified Time None Recorded Advance Directives Directive None Recorded Payers Insurance Date Sequence Insurance Name Policy Number Policy Tai Covered Member ID Tai Member ID Guarantor Name 07/22/2025 1 [place] Agustina Cordova [id number] Agustina Cordova 07/22/2025 2 [place] 104 Agustina Cordova [id number] Agustina Cordova Notes Date Note Type Note Provider Name and Address Organization Details Recorded Time 11/20/2024 text/html The patient returns complaining of bilateral knee pain. Previous x-rays show severe primary osteoarthritis of the left knee moderately severe in the right knee. Left knee is xclc-mn-wpux in the medial compartment right knee has [...] in total knee arthroplasty. ELOISA Craig [address], [address], [place], [address], [employer] 11/20/2024 11:16:25 12/11/2024 text/html . Patient is a 8-year-old female who returns for routine foot care secondary to elongated toenails she is unable to cut them states when they are long they are painful she states she has pain to the toes with shoe gear she denies any other complaints. Nadeem Blair DPM [address], [address], [place], [address], [employer] 12/11/2024 12:47:49 03/28/2025 text/html The patient returns for bilateral knee injections. She has severe primary osteoarthritis in both knees. She has dbzb-oc-bcwy changes lateral compartment of the right knee with a valgus deformity near fmym-ch-zwjm changes in the medial compartment of the left knee and also the patellofemoral articulations are dpyh-gr-fjcp. The patient denies any new trauma or injury to either knee has aching pain worse with activity somewhat relieved by rest. She has gotten previous cortisone injections in her knees 4 months ago those shots have worn off she would like to repeat those today. States her pain is about a 6 on a scale of 1-10 in both knees. Denies any new issues with either knee. She is on Eliquis chronically so we can not give her nonsteroidal anti-inflammatory medication. ELOISA Craig [address], [address], [place], [address], [employer] 03/28/2025 10:54:12 06/27/2025 text/html the patient returns with bilateral knee pain she has known severe primary osteoarthritis of both knees she has a mild windswept deformity with agmc-mr-dczm changes lateral compartment of the right knee mild valgus deformity in the left knee shows near trej-jl-gqws changes in the medial compartment with a mild varus deformity patellofemoral articulations also show dmma-cc-yquc changes. Denies any new problems no new trauma or injury she is on Eliquis chronically so we can not give her NSAIDs. Her last cortisone injections were 3 months ago she would like to repeat those again today. ELOISA Craig [address] [facility] [address], [place], [address], [employer] 06/27/2025 11:16:46 07/25/2025 text/html Patient is an 89-year-old female who returns the office for nail care as she has difficulty bending over to cut her nails. Patient also has bilateral foot pain she states that she continues have bunion deformities which are not problematic but she has pain under the forefoot area. Patient did get zsfy-nmg-pdyhmao orthotics she states she also got new [...] other complaints. Nadeem Blair DPM [address], [facility] [address], [place], [address], [employer] 07/25/2025 12:14:55 OBGyn Episode No OBEpisode recorded.
--- OUTSIDE RECORDS SUMMARY | 2025-08-24 08:12 | XMS_ITS | Clinical Summary ---
Author Organization [facility] Address [address] [place] [address] Phone Care Team Providers Care Electric Plater Name Role Phone Ashlee Doyle MD Primary Care Provider [phone] Cruz Lombardi MD Unavailable [phone] Allergies Active Allergy Reactions Criticality Noted Date [...] Description 08/22/2025 Telephone [facility] [address] [address] Cruz Lombardi MD 08/19/2025 12:15 PM SMALL BRAKE FORM OPERATOR Lab [facility] [address] [address] Iron deficiency anemia, unspecified iron deficiency anemia type 08/19/2025 10:45 AM SMALL BRAKE FORM OPERATOR Office Visit [facility] [address] [address] Cruz Lombardi MD Iron deficiency anemia, unspecified iron deficiency anemia type (Primary Dx) 08/19/2025 Travel 08/05/2025 11:15 AM SMALL BRAKE FORM OPERATOR Lab [facility] [address] [address] [facility], [facility] Anemia due to unknown mechanism 08/05/2025 10:30 AM SMALL BRAKE FORM OPERATOR Office Visit [facility] [address] [address] Cruz Lombardi MD Anemia due to unknown mechanism (Primary Dx) 08/05/2025 Results Follow-Up [facility] [address] [address] Cruz Lombardi MD IRON W/ IRON BINDING [...] Comments Blood Pressure 114/66 08/19/2025 11:12 AM SMALL BRAKE FORM OPERATOR Pulse 68 08/19/2025 11:12 AM SMALL BRAKE FORM OPERATOR Temperature 36.3 C (97.4 F) 08/19/2025 11:12 AM SMALL BRAKE FORM OPERATOR Respiratory Rate 16 08/19/2025 11:12 AM SMALL BRAKE FORM OPERATOR Oxygen Saturation 94% 08/19/2025 11:12 AM SMALL BRAKE FORM OPERATOR Inhaled Oxygen Concentration - - Weight 53.5 kg (118 lb) 08/19/2025 11:12 AM SMALL BRAKE FORM OPERATOR Height 166.4 cm (5' 5.5) 08/19/2025 11:12 AM CS T Body Mass Index 19.34 08/19/2025 11:12 AM SMALL BRAKE FORM OPERATOR Plan of Treatment Upcoming Encounters Date Type Department Care Team (Late st Contact Info) Description 09/02/2025 10:45 AM SMALL BRAKE FORM OPERATOR Office Visit [facility] [address] [address] Cruz Lombardi MD [address] [facility] [place] [address] [id number] 09/02/2025 11:00 AM SMALL BRAKE FORM OPERATOR Clinical Support [facility] [address] [address] Nurse, Cc [facility] Health Maintenance Due Date Last Done Comments [...] AUTO DIFF OH Routine 08/19/2025 11:57 AM SMALL BRAKE FORM OPERATOR CBC WITH AUTO DIFF OH Routine 08/05/2025 11:20 AM SMALL BRAKE FORM OPERATOR CMP (COMPREHENSIVE METABOLIC PANEL) Routine 08/05/2025 11:20 AM SMALL BRAKE FORM OPERATOR Anemia due to unknown mechanism LACTATE DEHYDROGENASE (LD) Routine 08/05/2025 11:20 AM SMALL BRAKE FORM OPERATOR Anemia due to unknown mechanism FOLIC ACID (FOLATE) Routine 08/05/2025 1 1:20 AM SMALL BRAKE FORM OPERATOR Anemia due to unknown mechanism FERRITIN Routine 08/05/2025 11:20 AM SMALL BRAKE FORM OPERATOR Anemia due to unknown mechanism RETICULOCYTE COUNT (RETIC) Routine 08/05/2025 11:20 AM SMALL BRAKE FORM OPERATOR Anemia due to unknown mechanism IRON W/ IRON BINDING CAPACITY OH Routine 08/05/2025 11:20 AM SMALL BRAKE FORM OPERATOR Anemia due to unknown mechanism VITAMIN B12 Routine 08/05/2025 11:20 AM SMALL BRAKE FORM OPERATOR Anemia due to unknown mechanism HAPTOGLOBIN Routine 08/05/2025 11:20 AM SMALL BRAKE FORM OPERATOR Anemia due to unknown mechanism ELECTROPHORESIS W/ TOTAL PROTEIN SERUM Routine 08/05/2025 11:20 AM SMALL BRAKE FORM OPERATOR Anemia due to unknown mechanism from Last 3 Months Results * (ABNORMAL) CBC WITH AUTO DIFF OH (08/19/2025 11:57 AM SMALL BRAKE FORM OPERATOR) Only the most recent of2 resultswithin the time period is included. WBC 7.2 4.0 - 10.0 10*3/uL [facility] HGB 8.6(L) 11.2 - 15.7 g/dL [facility] HCT 28.6(L) 34.1 - 44.9 % [facility] PLT 189 163 - 369 10*3/uL [facility] MPV 9.3(L) 9.4 - 12.4 fL [facility] RBC 3.39(L) 3.93 - 5.22 10*6/uL [facility] MCV 84 79 - 95 fL [facility] MCH 25.4(L) 25.6 - 32.2 pg [facility] MCHC 30.1(L) 32.2 - 36.5 g/dL [facility] RDW 19.7(H) 11.6 - 14.4 % [facility] Neutrophils % 57.3 36.0 - 66.0 % [facility] Lymphocytes % 28.9 19.0 - 40.0 % [facility] Monocytes % 11.0 4.1 - 12.1 % [facility] Eosinophils % 1.3 0.0 - 3.5 % [facility] Basophils % 1.1(H) 0.0 - 1.0 % [facility] Absolute Neutrophils 4.1 1.4 - 6.6 10*3/uL [facility] Absolute Lymphocytes 2.1 0.8 - 4.0 10*3/uL [facility] Absolute Monocytes 0.8 0.2 - 1.2 10*3/uL [facility] Absolute Eosinophils 0.1 0.0 - 0.4 10*3/uL [facility] Absolute Basophils 0.1 0.0 - 0.1 10*3/uL [facility] 08/19/2025 11:5 7 AM SMALL BRAKE FORM OPERATOR us Cruz Lombardi MD LAB SEND OUTS Final Result [facility] [address] [place] [address], [place] [phone] * (ABNORMAL) IRON W/ IRON BINDING CAPACITY [place] (08/05/2025 11:20 AM SMALL BRAKE FORM OPERATOR) IRON 20(L) 50 - 212 ug/dL [facility] UIBC 457(H) 155 - 355 ug/dL [facility] TIBC 477 261 - 478 ug/dl [facility] % Saturation 4(L) 20 - 50 % [facility] 08/05/2025 11:2 0 AM SMALL BRAKE FORM OPERATOR Narrative [facility] - 08/05/2025 12:29 PM SMALL BRAKE FORM OPERATOR Release to patient->Immediate us Cruz Lombardi MD LAB SEND OUTS Final Result Performing Organization Address City/[facility]/ZIP Co de Phone Number [facility] [address] [place] [address], [place] [phone] * VITAMIN B12 (08/05/2025 11:20 AM SMALL BRAKE FORM OPERATOR) Vitamin B12 209 180 - 914 pg/mL [facility] Blood 08/05/2025 11:2 0 AM SMALL BRAKE FORM OPERATOR Karlene [facility] - 08/06/2025 3:15 PM SMALL BRAKE FORM OPERATOR Release to patient->Immediate us Cruz Lombardi MD CHEMISTRY ORDERABLES Final R esult [facility] [address] [place] [address], * (ABNORMAL) RETICULOCYTE COUNT (RETIC) (08/05/2025 11:20 AM SMALL BRAKE FORM OPERATOR) Reticulocyte count 1.71(H) 0.50 - 1.70 % [facility] RET-He 23.80(L) 28.20 - 36.60 pg [facility] Comment: RET-He is a direct assessment of incorporation of iron into erythrocyte hemoglobin. It provides an indirect measure of the iron available for new erythropoiesis over past 2-4 days. Blood 08/05/2025 11:2 0 AM SMALL BRAKE FORM OPERATOR [facility] - 08/05/2025 11:38 AM SMALL BRAKE FORM OPERATOR Release to patient->Immediate us Cruz Lombardi MD HEMATOLOGY ORDERABLES Final Result Performing Organization Address City/[facility]/ZIP Co de Phone Number [facility] [address] [place] [address], [place] [phone] * LACTATE DEHYDROGENASE (LD) (08/05/2025 11:20 AM SMALL BRAKE FORM OPERATOR) LDH 195 140 - 271 U/L [facility] Blood 08/05/2025 11:2 0 AM SMALL BRAKE FORM OPERATOR [facility] - 08/05/2025 12:13 PM SMALL BRAKE FORM OPERATOR Release to patient->Immediate us Cruz Lombardi MD CHEMISTRY ORDERABLES Final R esult Performing Organization Address [facility] Co de Phone Number [facility] [address] [place] [address], [place] [phone] * HAPTOGLOBIN (08/05/2025 11:20 AM SMALL BRAKE FORM OPERATOR) HAPTO 176 44 - 215 mg/dL [facility] Blood 08/05/2025 11:2 0 AM SMALL BRAKE FORM OPERATOR [facility] - 08/06/2025 3:15 PM SMALL BRAKE FORM OPERATOR Release to patient->Immediate us Cruz Lombardi MD CHEMISTRY ORDERABLES Final R esult Performing Organization Address City/[facility]/ZIP Co de Phone Number [facility] [address] [place] [address], [place] [phone] * FOLIC ACID (FOLATE) (08/05/2025 11:20 AM SMALL BRAKE FORM OPERATOR) Folate >20.00 >=5.90 ng/mL [facility] Blood 08/05/2025 11:2 0 AM SMALL BRAKE FORM OPERATOR Narrative [facility] - 08/06/2025 3:15 PM SMALL BRAKE FORM OPERATOR Release to patient->Immediate IS THE PATIENT REQUIRED TO BE FASTING FOR 12 HOURS?->No Cruz Lombardi MD CHEMISTRY ORDERABLES Final R esult [facility] [address] [place] [address], [place] [phone] * FERRITIN (08/05/2025 11:20 AM SMALL BRAKE FORM OPERATOR) Ferritin 17 11 - 307 ng/mL [facility] Blood 08/05/2025 11:2 0 AM SMALL BRAKE FORM OPERATOR Narrative [facility] - 08/06/2025 3:15 PM SMALL BRAKE FORM OPERATOR Release to patient->Immediate Cruz Lombardi MD CHEMISTRY ORDERABLES Final R esult [facility] [address] [place] [place] [address], [place] [phone] * (ABNORMAL) ELECTROPHORESIS W/ TOTAL PROTEIN SERUM (08/05/2025 11:20 AM SMALL BRAKE FORM OPERATOR) PROTEIN, TOTAL, SERUM 5.8(L) 6.0 - 8.5 G/DL [facility] ALBUMIN 3.4 2.9 - 4.4 G/DL [facility] [id number] 0.3 0.0 - 0.4 G/DL [facility] [id number] 0.7 0.4 - 1.0 G/DL [facility] BETA GLOBULIN 0.9 0.7 - 1.3 G/DL [facility] GAMMA GLOBULIN 0.5 0.4 - 1.8 G/DL [facility] M-SPIKE NOT OBSERVED NOT OBSERVED G/DL [facility] GLOBULIN, TOTAL 2.4 2.2 - 3.9 G/DL [facility] A/G RATIO 1.4 0.7 - 1.7 [facility] TER SPECIALISTS [facility] PLEASE NOTE: COMMENT [facility] Comment: PROTEIN ELECTROPHORESIS SCAN WILL FOLLOW VIA COMPUTER, MAIL, OR TRANSPORT COMPANY MANAGER DELIVERY. PDF . [facility] TER SPECIALISTS [facility] Blood 08/05/2025 11:2 0 AM SMALL BRAKE FORM OPERATOR Narrative [facility] - 08/06/2025 3:09 PM SMALL BRAKE FORM OPERATOR TESTING PERFORMED AT: [] [facility], [address] [place] [address], [id number], PHONE: [phone], DERRICK WORKER WELL SERVICE: VNAESSA MACHADO, PHD Release to patient->Immediate us Cruz Lombardi MD CHEMISTRY ORDERABLES Final R esult [facility] Care [address] [place] [address], * (ABNORMAL) CMP (COMPREHENSIVE METABOLIC PANEL) (08/05/2025 11:20 AM SMALL BRAKE FORM OPERATOR) Glucose 98 70 - 105 mg/dL [facility] Blood Urea Nitrogen 13 7 - 25 mg/dL [facility] Creatinine 1.1 0.6 - 1.2 mg/dL [facility] Sodium 136 136 - 145 mEq/L [facility] Potassium 4.2 3.5 - 5.1 mEq/L [facility] Chloride 102 98 - 107 mEq/L [facility] Bicarbonate 25 21 - 31 mEq/L [facility] Total Bilirubin 0.4 0.3 - 1.0 mg/dL [facility] Alk. Phosphatase 79 34 - 104 U/L [facility] Aspartate Aminotransferase 16 13 - 39 U/L [facility] Alanine Aminotransferase 9 7 - 52 U/L [facility] Total Protein 5.9(L) 6.4 - 8.9 g/dL [facility] Albumin 4.1 3.5 - 5.7 g/dL [facility] Calcium 9.0 8.6 - 10.3 mg/dL [facility] Anion Gap 13.2 7.0 - 15.0 mEq/L [facility] Globulin 1.8(L) 2.0 - 3.5 g/dL [facility] EGFR 48(L) >60 ml/min/1. 73m2 [facility] Comment: This eGFR is calculated using 2020 CKD-EPI Creatinine equation without race modifier based on the NKF-ASN task force recommendations Equation: mAQJ=383*min(SCr/k,1)a*max(SCr/k,1)-1.200*0.9938Age*1.012 (if female), where SCr is serum creatinine, k is 0.7 for females and 0.9 for males, and a is -0.241 for females and -0.302 for males Blood 08/05/2025 11:2 0 AM SMALL BRAKE FORM OPERATOR Narrative [facility] - 08/05/2025 12:13 PM SMALL BRAKE FORM OPERATOR Release to patient->Immediate IS THE PATIENT REQUIRED TO BE FASTING FOR 8 HOURS?->No us Cruz Lombardi MD CHEMISTRY ORDERABLES Final R esult [facility] [address] [place] [address], from Last 3 Months Insurance MEDICARE [facility] Care Teams Electric Plater Relationship Specialty Start Date End Date Ashlee Doyle MD [address] [place] [address] PCP - General Internal Medicine 07/22/25 Cruz Lombardi MD [address] [place] [phone] Consulting Physician Oncology 07/24/25
--- OUTSIDE RECORDS SUMMARY | 2025-08-24 08:12 | XMS_ITS | Encounter Summary ---
Author Organization [facility] Address [address] [place] [address] Care Team Providers Care Pathologist Assistant Name Role Phone Olivia Foss MD Primary Care Provider Unavailable Encounter Details Date Type Department Care Team (Late st Contact Info) Description 02/19/2020 Lab Requisition [facility] DermPath Lab [address] [facility] [place] [address] Yumiko Dykes MD [address] [facility] [address] [place] [address] Social History Tobacco Use Types Packs/Day Years Used Date Smoking Tobacco: Never Assessed Comments Unknown Sex and Gender Information Value Date Recorded Sex Assigned at Not on file Legal Sex Female 6:20 AM ASSOCIATE PROFESSOR OF AUTOMATION Gender Identity Not on file Sexual Orientation Not on file documented as of this encounter Plan of Treatment Not on file documented as of this encounter Procedures Procedure Name Priority Date/Time Associated Diagnosis Comments DERMATOPATHOLOGY Routine 02/18/2020 12:0 0 AM CDT documented in this encounter Results * DERMATOPATHOLOGY (02/18/2020 12:00 AM CDT) Case Report Dermatopathology Report Case: [id number] Authorizing Provider: Yumiko Dykes MD Collected: 02/18/2020 12:00 AM Ordering Location: [facility] DermPath Lab Received: 02/19/2020 08:29 [...] specimen consists of a shave biopsy measuring [id number], bisected. Jar 0+. 0 2:31 PM CDT [...] characteristic determined by the Dermatopathology Laboratory at [facility], directed by Dr. Kwame Agrawal. These tests need not be, and therefore are not, approved by the [place] Food and Drug Administration. The tests are used for clinical purposes. Billing Codes Specimen Charges Stain Charges 20429 1 0 2:31 PM CDT DERMATOPATHOLOGY LABORATORY Embedded Images 0 2:31 PM CDT DERMATOPATHOLOGY LABORATORY Pathology/Cytolog y TISSUE SPECIMEN FROM SKIN / Unknown 02/18/2020 02/19/2020 8:29 AM CDT us Yumiko Dykes MD LAB - PATHOLOGY/CYTOLOGY ORD ERABLES Final Result DERMATOPATHOLOGY LABORATORY [facility] - Department of Dermatology [facility]/[address] [address], [facility] [phone] documented in this encounter Visit Diagnoses Not on filedocumented in this encounter Care Teams Pathologist Assistant Relationship Specialty Start Date End Date Olivia Foss MD PCP - General 02/05/19 documented as of this encounter
--- OUTSIDE RECORDS SUMMARY | 2025-08-24 08:12 | XMS_ITS | Encounter Summary ---
Author Organization [facility] Address [address] [place] [address] Phone Care Team Providers Care Dealmaker Name Role Phone Miscellaneous, Not In File Unavailable Unava ilable Sheryl Latham MD Unavailable [phone] Ashlee Doyle MD Primary Care Provider [phone] Jonh Junior MD Unavailable Encounter Details Date Type Department Care Team (Late st Contact Info) Description 08/21/2025 Telephone [facility] Medicine Cardiology [address] [facility] Advanced Medicine 8th [place] [address] [place] [address] Jonh Junior MD [address] [place] [address] Social History Tobacco Use Types [...] on file Legal Sex Female 2:10 AM CHIEF RELAY TESTER Gender Identity Not on file Sexual [...] to following up after being discharged from [facility] F RELAY TESTER * Telephone Encounter - Yarelis Hernández - 08/21/2025 11:42 AM CST [place] Pt requesting cb in regards to recent hospitalization from 08/12-08/14 at [facility] in [facility]. F RELAY TESTER documented in this encounter Plan of Treatment Not on file documented as of this encounter Visit Diagnoses Not on filedocumented in this encounter Care Teams Dealmaker Relationship Specialty Start Date End Date Ashlee Doyle MD [address] [place] [address] PCP - General Internal Medicine 09/05/23 Miscellaneous, Not In File 03/24/21 Sheryl Latham MD Medical Oncologist/Financial Center Manager Medical Oncology 05/12/21 Jonh Junior MD [address] [place] [address] Referring Physician Cardiology 09/05/23 documented as of this encounter
--- OUTSIDE RECORDS SUMMARY | 2025-08-24 08:12 | XMS_ITS | Encounter Summary ---
Author Organization [facility] Healthcare Address [address] [place] [address] Care Team Providers Care Control Director Name Role Phone Ashlee Doyle MD Primary Care Provider [phone] Randi Barney MD Unavailable [phone] Miscellaneous, Not In File Unavailable Unava ilable Sheryl Latham MD Unavailable [phone] Jonh Junior MD Primary Care Provide r Ashlee Doyle MD Primary Care Provider [phone] Jonh Junior MD Unavailable Encounter Details Date Type Department Care Team (Late st Contact Info) Description 03/31/2021 Telephone [facility] [address] [place] [address] Kindra Mir, RT Social History Tobacco Use Types Packs/Day Years Used Date Smoking Tobacco: Never Smokeless Tobacco: Never Alcohol Use Standard Drinks/Week Comments Yes 0 (1 standard drink = 0.6 oz pur e alcohol) Comments No Sex and Gender Information Value Date Recorded Sex Assigned at Not on file Legal Sex Female 2:10 AM INFO SPECIALIST Gender Identity Not on file Sexual [...] documented as of this encounter Care Teams Control Director Relationship Specialty Start Date End Date Ashlee Doyle MD [address] [place] [address] PCP - General 02/09/18 08/24/23 Jonh Junior MD PCP - General Cardiology 08/25/23 09/04/23 Ashlee Doyle MD [address] [place] [address] PCP - General Internal Medicine 09/05/23 Randi Barney MD [address] [place] [address] Referring Physician Cardiology 03/12/21 08/24/23 Miscellaneous, Not In File 03/24/21 Sheryl Latham MD Medical Oncologist/Manager [facility] 05/12/21 Jonh Junior MD Referring Physician Cardiology 09/05/23 documented as of this encounter
--- OUTSIDE RECORDS SUMMARY | 2025-08-24 08:12 | XMS_ITS | Encounter Summary ---
Author Organization [facility] Address [address] [facility] [facility] [place] [address] Care Team Providers Care Tour Coordinator Name Role Phone Olivia Foss MD Primary Care Provider Unavailable Encounter Details Date Type Department Care Team (Late st Contact Info) Description 02/07/2019 Lab Requisition [facility] Care DermPath Lab [address] [facility], [place] [address] Olivia Fernandez MD [address] [facility] 3 [place] [address] Social History Tobacco Use Types Packs/Day Years Used Date Smoking Tobacco: Never Assessed Comments Unknown Sex and Gender Information Value Date Recorded Sex Assigned at Not on file Legal Sex Female 6:20 AM DAMAGE APPRAISER Gender Identity Not on file Sexual Orientation Not on file documented as of this encounter Plan of Treatment Not on file documented as of this encounter Procedures Procedure Name Priority Date/Time Associated Diagnosis Comments DERMATOPATHOLOGY Routine 02/05/2019 12:0 0 AM CDT documented in this encounter Results * DERMATOPATHOLOGY (02/05/2019 12:00 AM CDT) Case Report Dermatopathology Report Case: [id number] Authorizing Provider: Olivia Fernandez MD Collected: 02/05/2019 [...] The specimen consists of a shave measuring 5c6p3wj. Jar 0. Specimen B: Received is one formalin filled container labeled with the patient's name and designated left FA. The specimen consists of a shave (2 pieces) measuring 74d9c4ak & 9k3w3iv. Jar 0. 10:54 AM T DERMATOPATHOLOGY LABORATORY [...] characteristic determined by the Dermatopathology Laboratory at [facility], directed by Dr. Kwame Agrawal. These tests need not be, and therefore are not, approved by the [place] Food and Drug Administration. The tests are used for clinical purposes. Billing Codes Specimen Charges Stain Charges 32498 56056 1 1 9 10:54 AM T DERMATOPATHOLOGY LABORATORY Embedded Images 10:54 AM T DERMATOPATHOLOGY LABORATORY Pathology/Cytology TISSUE SPECIMEN FROM SKIN / Unknown 02/05/2019 02/07/2019 8:16 AM CDT Miscellaneous samples (specimen) TISSUE SPECIMEN FROM SKIN / Unknown 02/05/2019 02/07/2019 8:16 AM CDT Olivia Fernandez MD LAB - PATHOLOGY/CYTOLOGY OR DERABLES Final Result DERMATOPATHOLOGY LABORATORY [facility] - Department of Dermatology [address] [place] [address], [address] [place] [address], [facility] [phone] documented in this encounter Visit Diagnoses Not on filedocumented in this encounter Care Teams Tour Coordinator Relationship Specialty Start Date End Date Olivia Foss MD PCP - General 02/05/19 documented as of this encounter
--- OUTSIDE RECORDS SUMMARY | 2025-08-24 08:12 | XMS_ITS | Clinical Summary ---
Author Organization [facility] Address [address] [facility] [place] [address] Care Team Providers Care Inspector Penetrant Name Role Phone Olivia Foss MD Primary Care Provider Unavailable Source Comments [facility],non-owned Affiliates and Associated Physician Practices is amultiple site organization consisting of ambulatory clinics and hospital sitesin [place], [place], [place] and [place]. This disclosure is being madepursuant to the Care Everywhere program and may not contain all information available regarding this patient. Last updated 18.[facility] Social History Tobacco Use Types Packs/Day Years Used Date Smoking Tobacco: Never Assessed Comments Unknown Sex and Gender Information Value Date Recorded Sex Assigned at Not on file Legal Sex Female 6:20 AM DEBLOCKER Gender Identity Not on file Sexual Orientation [...] age to complete this topic Insurance MEDICARE [facility] Care Teams Inspector Penetrant Relationship Specialty Start Date End Date Olivia Foss MD PCP - General 02/05/19
--- OUTSIDE RECORDS SUMMARY | 2025-08-24 08:12 | XMS_ITS | Clinical Summary ---
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 06/06/2018 Carotid bruit [...] Td 06/19/2016 Tdap (Generic) 11/10/2012 Zoster (Zostavax) 77582 Unt/0.65Ml 03/29,09/21/2018,09/19/2013,2009 Family History Medical History Relation [...] on file Legal Sex Female 1:30 PM MANAGER LOGISTIC Gender Identity Not on file Sexual Orientation Not on file Last Filed Vital Signs Vital Sign Reading Time Taken Comments Blood Pressure 140/62 08/21/2020 1:18 PM MANAGER LOGISTIC Pulse 97 08/21/2020 1:18 PM MANAGER LOGISTIC Temperature - - Respiratory Rate - - Oxygen Saturation - - Inhaled Oxygen Concentration - - Weight 67.5 kg (148 lb 12.8 oz) 08/21/2020 1:18 PM MANAGER LOGISTIC Height 165.1 cm (5' 5) 08/21/2020 1:18 PM MANAGER LOGISTIC Body Mass Index 24.76 08/21/2020 1:18 PM MANAGER LOGISTIC Plan of Treatment Health Maintenance Due Date [...] file Type:Indemnity Address: ATTN CLAIMS [address] MEDICARE Care Teams Correctional Lieutenant Relationship Specialty Start Date End Date Ashlee Doyle MD PCP - General INTERNAL MEDICINE 02/18/20 Melvin Pedraza MD [address] [address] Referring Physician VASCULAR SURGERY 02/18/20
--- OUTSIDE RECORDS SUMMARY | 2025-08-24 08:12 | XMS_ITS | Clinical Summary ---
Author Organization [employer] [facility] Address [address] [facility] [place] [address] Care Team Providers Care Seasonal Clerk Name Role Phone No, Pcp HOP PICKER Primary Care Provider Unavailabl e Allergies Active [...] Medical Devices Not on file Care Teams Seasonal Clerk Relationship Specialty Start Date End Date No, Pcp, HOP PICKER N/A Do not use PCP - General Family Medicine 05/12/20
--- OUTSIDE RECORDS SUMMARY | 2025-08-24 08:12 | XMS_ITS | Encounter Summary ---
Author Organization [facility] Address [address] [place] [address] Care Team Providers Care Audit Senior Associate Name Role Phone Olivia Foss MD Primary Care Provider Unavailable Encounter Details Date Type Department Care Team (Late st Contact Info) Description 04/09/2019 Lab Requisition [facility] Care DermPath Lab [address] 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 Previous Bx: [id number]. 3:47 PM CDT DERMATOPATHOLOGY LABORATORY Gross Description Specimen A: Received is one formalin filled container labeled with the patient's name and designated left fa. The specimen consists of a non-oriented ellipse of skin measuring [id number]. The epidermal surface is unremarkable. The margin [...] characteristic determined by the Dermatopathology Laboratory at [facility], directed by Dr. Kwame Agrawal. These tests need not be, and therefore are not, approved by the [place] Food and Drug Administration. The tests are used for clinical purposes. Billing Codes Specimen Charges Stain Charges 98391 1 3:47 PM CDT DERMATOPATHOLOGY LABORATORY Embedded Images 3:47 PM CDT DERMATOPATHOLOGY LABORATORY Pathology/Cytolog y TISSUE SPECIMEN FROM SKIN / Unknown 04/06/2019 04/09/2019 6:40 AM CDT Olivia Fernandez MD LAB - PATHOLOGY/CYTOLOGY OR DERABLES Final Result DERMATOPATHOLOGY LABORATORY [facility] - Department of Dermatology [address] [facility], [address]th [place] [address], [facility] [phone] documented in this encounter Visit Diagnoses Not on filedocumented in this encounter Care Teams Audit Senior Associate Relationship Specialty Start Date End Date Olivia Foss MD PCP - General 02/05/19 documented as of this encounter
--- OUTSIDE RECORDS SUMMARY | 2025-08-24 08:12 | XMS_ITS | Continuity of Care Document ---
Author Organization [place] [facility], [facility] Address [address] [facility], [address] [place] [address] Care Team Providers Care Center Sales And Service Associate Name Role Phone LD REYNOSO Primary Care Provider LD REYNOSO Referring Provider Assessment Encounter Date Assessment Date Assessment LastModified by Organization Details LastModified Time 06/27/2025 06/27/2025 The patient has severe primary [...] for any further problems difficulties or questions. [email or web address] Not available 06/27/2025 11:12:58 Plan of Treatment Reminders Order Date Submit [...] DO Not Attach Compendium, Do Not Delete/merge, [id number] 06/27/2025 10:54:58 Surgeries None recorded. Imaging None recorded. Medication Orders bupivacai ne HCl 0.5 % (5 mg/mL) injection solution 2024 025 [email or web address] [id number], [address] [place], [address], 06/27/2025 11:16:53 Kenalog 10 mg/mL suspensio n for injection 2024 025 [id number], [address] [place], [address], 06/27/2025 11:16:53 Patient TargetsNo targets recorded. Patient InstructionsNo instructions recorded. Reason for Referral None Reported. Problems Name Problem SNOMED Code Status Onset Date Resolution Date Notes Provider Name and Address Organization Details Recorded Time Heartburn 00628438 Active 2017 Not Available [facility] 3 20:02:36 Arthritis 5194223 Active 2017 Not Available [facility] 3 20:02:37 Migraine 18278978 Active 2017 Not Available [facility] 3 20:02:37 Hammer toe 047818327 Active 2017 Not Available [facility] 3 20:02:36 Onychomyc osis of toenails 667381310 Completed 201712/24/2020 Not Available [facility] 3 20:02:37 Bunion 035307746 Active 2017 Not Available [facility] 3 20:02:37 Injury of great toenail 450038887 Active 2018 Not Available [facility] 3 20:02:36 Unable to cut own toenails 228232762 Active 2020 Not Available [facility] 3 20:02:36 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 Nadeem Blair, MASHA [address] [facility], [place], [address] , [facility] [employer] [facility] 5 12:14:26 Foot callus 523283696 Active 2020 Not Available [facility] 3 20:02:36 Porokerat osis 438895271 Active 2020 Not Available [facility] 3 20:02:37 Bilateral osteoarth ritis of knees 81088164578 9107 Active 2021 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 Rucker 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 null, [place] [facility] 5 10:52:14 Pain of right knee joint 80125140531 4100 Active 2021 Not Available [facility] 3 20:02:37 Pain of left knee joint 17714978301 4107 Active 2022 Not Available [facility] 3 20:02:37 Pain of bilateral knee joints 57960979435 4104 Active 2022 DIANA DesaiA null, [place] [facility] 5 10:52:21 Osteoarth ritis 281728946 Active 2022 Nalini Mcdonald RMRon null, [place] [facility] 3 10:30:33 Pain of left shoulder joint 01884807178 462435 Active 2022 Gena Esquivel null, [place] [facility] 3 10:52:50 Tendiniti s of left rotator cuff 23154032889 550077 Active 2022 Hipolito Palm MD [address], [address], [place], [address] , [facility] 3 10:57:44 Pain in bilateral feet 04575604421 885039 Active 2023 Nadeem Blair DPM [address], [address], [place], [address] , [facility] 4 09:12:06 Hammer toe 018036058 Active 2023 Nadeem Blair DPM [address], [address], [place], [address] , [facility] 4 19:15:41 Pain in toe 128079995 Active 2023 Nadeem Blair DPM [address], [address], [place], [address] , [employer] 4 19:16:13 Callosity on toe 084361532 Active 2024 Nadeem Blair DPM [address], [address], [place], [address] , [employer] 5 12:47:13 Bilateral metatarsa lgia 68614489117 029432 Active 2024 Nadeem Blair DPM [address], [address], [place], [address] , [employer] 5 12:14:20 Notes:allergies, eye problem s, wears glasses, vision problems, ringing in ears Problem Notes None recorded. Procedures Surgical History Date Name Laterality Status Provider Name and Address Organization Details Recorded Time 5 Nail Debridement completed Nadeem Blair DPM [address], [address], [place], [address], [employer] 07/25/2025 12:13:53 5 Nail Debridement completed Nadeem Blair DPM [address], [address], [place], [address], [employer] 12/11/2024 12:47:06 5 Callus Debridement 2-4 completed Nadeem Blair DPM [address], [address], [place], [address], [employer] 12/11/2024 12:46:57 4 Nail Debridement completed Nadeem Blair DPM [address], [address], [place], [address], [employer] 01/17/2024 19:14:53 4 Callus Debridement 2-4 completed Nadeem Blair DPM [address], [address], [place], [address], [employer] 01/17/2024 19:14:40 4 Nail Debridement completed Nadeem Blair DPM [address], [place], [address], [employer] [facility] [employer] [facility] 10/06/2023 12:01:21 4 Callus Debridement 2-4 completed Nadeem Blair DPM [address], [address], [place], [address], [employer] [facility] [employer] [facility] 10/06/2023 12:01:14 3 Ortho - Cortisone Injection completed Hipolito Palm MD [address], [address], [place], [address], [employer] [facility] 04/26/2023 10:49:51 3 Ortho - Cortisone Injection completed Hipolito Palm MD [address], [place], [address], [employer] [facility] [employer] 01/18/2023 10:57:27 Imaging Results None recorded. Procedure Notes None recorded. Medical Equipment None Reported. Allergies Allergen ID Allergen Name Allergen Category Reaction Reaction Severity Criticality Documentation Date Start Date Code Code System Note Provider Name and Address Organization Details Recorded Time 24507 sulfur dioxide medicatio n facial swelling Not available Not available 11/17/2022 95366 79 RxNorm Not Available [facility] 3 20:04:47 Medications Name Sig Start [...] 40 mg by injection route. 2024 active [facility]: 0003- 0494- 20 Not Available Not [...] % scalp solution APPLY TO SCALP QD. 01/18 /2024 completed Not Available Not Available Not Available [...] 40 mg by injection route. 08/02 completed [facility] [address]2510 -064- 01 Not Available Not Available Not [...] Updated DateTime 06/27/2025 157.48 cm 21.2 kg/m2 27854.71 g MARIE Desai - ANITRA MD [employer] [facility] 06/27/2025 10:52:38 Social History Question Answer Notes LastModified by Organizat ion Details LastModified Time Tobacco Smoking Status Never Smoker Not Available [employer] 11/17/2022 20:01:47 What Was The Date Of Your Most Recent Tobacco Screening? 06/27/2025 [email or web address] Information not available 06/27/2025 Sex: Unknown Functional Status Question Answer Note LastModified by Organizat ion Details LastModified Time What is your level of alcohol consumption? None [id number] Information not available 11/17/2022 Mental Status None recorded. Family History Relationship Description Onset Age of this Age Resolved Age Notes LastModified by Organization Details LastModified Time Mother Heart disease [id number] Not available 11/17/2022 20:01:48 Daughter Diabetes mellitus [email or web address] Not available 2022 10:37:56 Medical History Condition Response CANCER: SPECIFY Y ARTHRITIS Y OSTEOPOROSIS Y URINARY/BLADDER/KIDNEY PROBLEMS Y USE OF BLOOD THINNERS Y HEART ARRHYTHMIA Y Gynecological HistoryNo gynecological history recorded. Obstetrics History GPAL:G 0 P 0 0 0 0 Past Encounters Encounter ID Performer Location Encounter Start Date Encounter Closed Date Diagnosis/Indication Diagnosis SNOMED-CT Code Diagnosis ICD10 Code Diagnosis IMO Codes Diagnosis Note [id number] Jude Leos MD [facility] [address], [address] [address] 06/27/2025 10:47:36 06/27/2025 11:08:46 Bilateral osteoarthritis of knees 5014855415 72982 M17.0 Pain of bi lateral knee joints 3903089917 52141 M25.561 M25.562 Health Concerns Section Related Observation LastModified by Organization Detai ls LastModified Time None Recorded Concern Status LastModified by Organization Details LastModified Time None Recorded Payers Encounter Date Sequence Insurance Name Policy Number Policy Tai Covered Member ID Tai Member ID Guarantor Name 06/27/2025 1 [place] Agustina Cordova [id number] Agustina Cordova 06/27/2025 2 [place]PP[place]) 104 Agustina Cordova [id number] Agustina Cordova Notes Date Note Type Note Provider Name and Address Organization Details Recorded Time 06/27/2025 text/html the patient returns with bilateral knee pain she has known severe primary osteoarthritis of both knees she has a mild windswept deformity with grfl-ui-wpip changes lateral compartment of the right knee mild valgus deformity in the left knee shows near dpqh-kn-csvr changes in the medial compartment with a mild varus deformity patellofemoral articulations also show bfxq-ll-ogjp changes. Denies any new problems no new trauma or injury she is on Eliquis chronically so we can not give her NSAIDs. Her last cortisone injections were 3 months ago she would like to repeat those again today. ELOISA Craig [address] [facility] [facility] [address], [place], [address], [place] [facility] 06/27/2025 11:16:46 OBGyn Episode No OBEpisode recorded.
--- OUTSIDE RECORDS SUMMARY | 2025-08-24 08:12 | XMS_ITS ---
Author Organization [facility] Address [address] [place] [address] Care Team Providers Care Expansion Joint Finisher Name Role Phone Miscellaneous, Not In File Unavailable Unava ilable Sheryl Latham MD Unavailable Ashlee Doyle MD Primary Care Provider [phone] Jonh Junior MD Unavailable Active Problems Problem [...] ready for that. -home spironolactone, -02/21 BNP >54324, ordered Cardio c/s, TTE, Trop, EKG, tele [...] stable from prior notes from [facility] - Fundus exam and photos appear stable [...] Patient should continue to monitor with her mohs surgeon/general dermatologist Assessment & Plan (04/01/2022 3:54 PM CDT): [...] [facility]. Will have second opinion with [facility] next available per patient request. 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
--- NOTE | 2025-08-24 08:57 | PM.CNOR ---
History of Present Illness HPI Consult date: 08/24/25 Chief complaint: Right Hip Intertrochanteric Fracture Narrative: 89 yr old female, cognitively capable, lives at home independently with Right Hip IT Fracture after a fall descending stairs at home. She missed a step, landed on to her Right side. No other injuries or complaints of pain. Previuos falls with pubic rami fracture and sacral fracture after fall over the past few months, has 1 daughter, 4 grand children, 8 great grand children. Has grand daughter Juanita who lives close to her and checks in on her. [facility] Past Medical History Medical History History of hip fracture right hip Heart failure with mid-range ejection fraction Echocardiogram in October 2023 showed mildly reduced LV systolic function with an EF of 45 to 50% and grade 1 diastolic dysfunction. Transient ischemic attack Chronic anticoagulation Paroxysmal atrial fibrillation Left bundle branch block Hyperlipidemia Hypertension Lymphoma (2020) Surgical History Surgical History History of lymph node biopsy Family History Family History Sibling Cerebrovascular accident Mother Cardiac abnormality Social History Social History (Updated 08/13/25 @ 14:44 by Starr Holland PA-C) Social History: Lives home alone with no pets. Surrogate medical decision maker: Annemarie Ortiz, granddaughter. Code status: Full code. Smoking status: Never smoker Second hand tobacco smoke exposure: No Alcohol intake: never Substance use: never Substance use type: does not use Lack of Transportation: No Lack of Food: Never True Current Housing: I Have Housing Concerned About Future Housing: No Difficulty Paying Gas/Electric Bills: No Difficulty Paying for Meds: No Currently Unemployed: No Education: Bachelor's Degree Difficulty w/ Childcare or Family Care: No Spiritual care concerns: No Meds Home Medications and Allergies Home Medications ?Medication ?Instructions ?Recorded ?Confirmed ?Type acetaminophen 500 mg tablet 1,000 mg PO TID PRN Pain (Scale 10/21/23 08/24/25 History Score 1-3) amiodarone 200 mg tablet 100 mg PO DAILY 10/21/23 08/24/25 History hydrocortisone 2.5 % topical cream 1 applic RECTAL DAILY PRN 10/21/23 08/24/25 History with perineal applicator Hemorrhoids melatonin 3 mg tablet 3 mg PO HS PRN Insomnia 10/21/23 08/24/25 History timolol 0.25 % eye drops 1 drp EACH EYE Q12H 10/21/23 08/24/25 History walker #1 ea 01/15/25 08/24/25 Rx apixaban 2.5 mg tablet (Eliquis) 2.5 mg PO Q12H 08/12/25 08/24/25 History pantoprazole 40 mg tablet,delayed 40 mg PO DAILY 08/12/25 08/24/25 History release polysaccharide iron complex 150 mg 150 mg PO DAILY 08/12/25 08/24/25 History iron capsule rosuvastatin 5 mg tablet 5 mg PO .QOD 08/12/25 08/24/25 History sacubitril 24 mg-valsartan 26 mg 1 tablet PO BID 08/12/25 08/24/25 History tablet benzonatate 100 mg capsule 100 mg PO Q6H PRN Cough #30 caps 08/14/25 08/24/25 Rx ferrous sulfate 325 mg (65 mg 325 mg PO DAILY #30 tabs 08/14/25 08/24/25 Rx iron) tablet (FeroSul) Allergies Allergy/AdvReac Type Severity Reaction Status Date / Time Sulfa (Sulfonamide Allergy Severe Swelling Verified 08/13/25 07:38 Antibiotics) of Lip/Tongue/Throat Vital Signs Vital Signs - 24 hr 08/23/25 18:46 08/23/25 18:46 08/23/25 19:01 Temperature Pulse Rate 76 75 73 Respiratory Rate 14 14 15 Blood Pressure 154/73 H 154/73 H 151/58 H Pulse Oximetry 97 98 96 Oxygen Delivery Room Air 08/23/25 19:15 08/23/25 19:30 08/23/25 20:13 Temperature Pulse Rate 75 78 80 Respiratory Rate 13 15 18 Blood Pressure 152/60 H 137/70 132/71 Pulse Oximetry 99 97 96 Oxygen Delivery 08/24/25 01:00 08/24/25 01:01 08/24/25 01:52 Temperature 36.6 C Pulse Rate 74 79 98 Respiratory Rate 16 18 18 Blood Pressure 135/76 140/71 167/70 H Pulse Oximetry 100 96 98 Oxygen Delivery 08/24/25 04:00 08/24/25 04:46 Temperature 36.6 C Pulse Rate 99 101 H Respiratory Rate 17 Blood Pressure 132/66 Pulse Oximetry 91 Oxygen Delivery Exam Narrative: Awake and alert and oriented. Answers questions appropriately. Right lower extremity is shortened and externally rotated. Moderately swelling at knee. No swelling or tenderness at ankles or Left Knee.No swelling or tenderness or deformity to bilateral upper extremities. Const: General: alert, awake, cachectic, malnourished, thin and underweight Nutritional Appearance: cachectic and thin Orientation/consciousness: patient oriented x3 Other: Cognitively capable. Results Labs 08/24/25 05:50 08/24/25 05:50 Labs: Abnormal lab results 08/23/25 08/24/25 08/24/25 Range/Units 21:03 00:58 05:50 WBC 10.5 H (4.5-10.0) K/mm3 RBC 3.29 L 3.08 L (4.2-5.4) M/mm3 Hgb 8.5 L 8.0 L (12.0-15.0) g/dL Hct 28.1 L 26.3 L (37.0-47.0) % MCH 25.8 L (26-34) pg MCHC 30.2 L 30.4 L (32-36) g/dl RDW 21.7 H 21.5 H (11.5-14.5) % Plt Count 135 L (150-375) k/mm3 Immature Gran % (Auto) 0.8 H (0-0.5) % Neut % (Auto) 76.1 H 76.0 H (45.5-73.1) % Lymph % (Auto) 15.3 L 13.8 L (18.3-44.2) % Charles % (Auto) 8.9 H (2.6-8.5) % Charles # (Auto) 0.7 H 0.7 H (0.1-0.6) K/mm3 Abs Immat Gran (auto) 0.08 H (0.00-0.031) K/mm3 Absolute Neuts (auto) 8.0 H (1.3-6.7) K/mm3 PT 15.5 H (11.1-14.7) Seconds Sodium 129 L 130 L (137-145) mmol/L Creatinine 1.06 H (0.7-1.0) mg/dL Estimated GFR 49 L 58 L (59 - ) Urine Ketones Trace H (Negative) mg/dL Ur Blood (Man) 1+ H (Negative) Leukocyte Esterase Rfl Trace H (Negative) TONY/UL Urine RBC 6-10 H (0-2) /hpf H & H 08/23/25 08/24/25 Range/Units 21:03 05:50 Hgb 8.5 L 8.0 L (12.0-15.0) g/dL Hct 28.1 L 26.3 L (37.0-47.0) % Coagulation 08/23/25 08/24/25 Range/Units 21:03 05:50 INR 1.2 1.1 All other labs normal.
--- NOTE | 2025-08-24 09:01 | WPDANESEPPF ---
Anes - Initial Pre Proc Eval Procedure: Operation Date: 08/24/25 09:00 Proposed Procedures p Intertrochanteric Nail(Right) - Jeremy Gonzalez MD Date/Time: 08/24/25 09:01 Surgeon: Caitlyn Hebert MD Pre Op Diagnosis: Right Hip Intertrochanteric Fracture Patient Data Age: 89 Gender: F Height: 1.65 m Weight: 53.5 kg Last Vital Signs Temp 36.6 C 08/24/25 04:46 Pulse 101 H 08/24/25 04:46 Resp 17 08/24/25 04:46 BP 132/66 08/24/25 04:46 Pulse Ox 91 08/24/25 04:46 O2 Del Method Room Air 08/23/25 18:46 Allergies Allergy/AdvReac Type Severity Reaction Status Date / Time Sulfa (Sulfonamide Allergy Severe Swelling Verified 08/13/25 07:38 Antibiotics) of Lip/Tongue/Throat Home Medications ?Medication ?Instructions ?Recorded ?Confirmed ?Type acetaminophen 500 mg tablet 1,000 mg PO TID PRN Pain (Scale 10/21/23 08/24/25 History Score 1-3) amiodarone 200 mg tablet 100 mg PO DAILY 10/21/23 08/24/25 History hydrocortisone 2.5 % topical cream 1 applic RECTAL DAILY PRN 10/21/23 08/24/25 History with perineal applicator Hemorrhoids melatonin 3 mg tablet 3 mg PO HS PRN Insomnia 10/21/23 08/24/25 History timolol 0.25 % eye drops 1 drp EACH EYE Q12H 10/21/23 08/24/25 History walker #1 ea 01/15/25 08/24/25 Rx apixaban 2.5 mg tablet (Eliquis) 2.5 mg PO Q12H 08/12/25 08/24/25 History pantoprazole 40 mg tablet,delayed 40 mg PO DAILY 08/12/25 08/24/25 History release polysaccharide iron complex 150 mg 150 mg PO DAILY 08/12/25 08/24/25 History iron capsule rosuvastatin 5 mg tablet 5 mg PO .QOD 08/12/25 08/24/25 History sacubitril 24 mg-valsartan 26 mg 1 tablet PO BID 08/12/25 08/24/25 History tablet benzonatate 100 mg capsule 100 mg PO Q6H PRN Cough #30 caps 08/14/25 08/24/25 Rx ferrous sulfate 325 mg (65 mg 325 mg PO DAILY #30 tabs 08/14/25 08/24/25 Rx iron) tablet (FeroSul) Laboratory Tests 08/23/25 08/24/25 08/24/25 21:03 00:58 05:50 WBC 10.5 H K/mm3 7.3 K/mm3 (4.5-10.0) (4.5-10.0) RBC 3.29 L M/mm3 3.08 L M/mm3 (4.2-5.4) (4.2-5.4) Hgb 8.5 L g/dL 8.0 L g/dL (12.0-15.0) (12.0-15.0) Hct 28.1 L % 26.3 L % (37.0-47.0) (37.0-47.0) MCV 85.4 fl 85.4 fl (80-100) (80-100) MCH 25.8 L pg 26.0 pg (26-34) (26-34) MCHC 30.2 L g/dl 30.4 L g/dl (32-36) (32-36) RDW 21.7 H % 21.5 H % (11.5-14.5) (11.5-14.5) Plt Count 154 k/mm3 135 L k/mm3 (150-375) (150-375) MPV 9.0 fl 9.4 fl (7.4-10.4) (7.4-10.4) Immature Gran % (Auto) 0.8 H % 0.4 % (0-0.5) (0-0.5) Neut % (Auto) 76.1 H % 76.0 H % (45.5-73.1) (45.5-73.1) Lymph % (Auto) 15.3 L % 13.8 L % (18.3-44.2) (18.3-44.2) [place] % (Auto) 6.4 % 8.9 H % (2.6-8.5) (2.6-8.5) Eos % (Auto) 0.8 % 0.3 % (0-4.4) (0-4.4) Baso % (Auto) 0.6 % 0.6 % (0.2-1.2) (0.2-1.2) Lymph # (Auto) 1.61 K/mm3 1.00 K/mm3 (0.9-3.2) (0.9-3.2) [place] # (Auto) 0.7 H K/mm3 0.7 H K/mm3 (0.1-0.6) (0.1-0.6) Eos # (Auto) 0.1 K/mm3 0.0 K/mm3 (0-0.3) (0-0.3) Baso # (Auto) 0.1 K/mm3 0.0 K/mm3 (0.0-0.1) (0.0-0.1) Abs Immat Gran (auto) 0.08 H K/mm3 0.03 K/mm3 (0.00-0.031) (0.00-0.031) Absolute Neuts (auto) 8.0 H K/mm3 5.5 K/mm3 (1.3-6.7) (1.3-6.7) Absolute Nucleated RBC 0.000 K/mm3 0.000 K/mm3 (0.0-0.012) (0.0-0.012) Nucleated RBC % 0.0 % 0.0 % (0.0-0.2) (0.0-0.2) PT 15.5 H Seconds 14.5 Seconds (11.1-14.7) (11.1-14.7) INR 1.2 1.1 APTT 29.9 Seconds 28.7 Seconds (22.3-36.8) (22.3-36.8) Sodium 129 L mmol/L 130 L mmol/L (137-145) (137-145) Potassium 3.9 mmol/L 4.6 mmol/L (3.4-5.0) (3.4-5.0) Chloride 102 mmol/L 102 mmol/L (98-107) (98-107) Carbon Dioxide 22 mmol/L 24 mmol/L (22-30) (22-30) Anion Gap 5 mmol/L 4 mmol/L (4-12) (4-12) BUN 15 mg/dL 13 mg/dL (7-17) (7-17) Creatinine 1.06 H mg/dL 0.92 mg/dL (0.7-1.0) (0.7-1.0) Estim Creat Clear Calc 28 ml/min 32 ml/min Estimated GFR 49 L 58 L (59 - ) (59 - ) Glucose 93 mg/dL 98 mg/dL (65-110) (65-110) Lactic Acid 1.0 mmol/L (0.7-2.0) Calcium 8.9 mg/dL 8.8 mg/dL (8.4-10.2) (8.4-10.2) Magnesium 1.8 mg/dL 1.8 mg/dL (1.6-2.3) (1.6-2.3) Total Bilirubin 0.6 mg/dL (0.2-1.3) AST 25 U/L (14-36) ALT 15 U/L (6-35) Alkaline Phosphatase 78 U/L (38-126) Total Creatine Kinase 43 U/L (30-135) Total Protein 6.3 g/dL (6.3-8.2) Albumin 4.0 g/dL (3.5-5.1) Urine Color Yellow (Yellow) Urine Appearance Clear (Clear) Urine pH 5.5 (5.0-9.0) Ur Specific Bryant 1.013 (1.001-1.035) Urine Protein Negative mg/dL (Negative) Urine Glucose (UA) Negative mg/dL (Negative) Urine Ketones Trace H mg/dL (Negative) Ur Blood (Man) 1+ H (Negative) Urine Nitrate Negative (Negative) Urine Bilirubin Negative (Negative) Urine Urobilinogen 0.2 mg/dL (<2.0) Leukocyte Esterase Rfl Trace H TONY/UL (Negative) Urine RBC 6-10 H /hpf (0-2) Urine WBC 0-5 /hpf (0-3) Ur Squamous Epith Cells None seen /hpf (Few) Urine Bacteria None seen /hpf Urine Casts 0-2 Blood Type A Negative Antibody Screen Negative Patient hx anesthesia problems: none Family hx anesthesia problems: none Results Review: All pre-operative results and documents have been reviewed as part of the pre-operative evaluation. [facility] Past Medical History Medical History History of hip fracture right hip Heart failure with mid-range ejection fraction Echocardiogram in October 2023 showed mildly reduced LV systolic function with an EF of 45 to 50% and grade 1 diastolic dysfunction. Transient ischemic attack Chronic anticoagulation Paroxysmal atrial fibrillation Left bundle branch block Hyperlipidemia Hypertension Lymphoma (2020) Surgical History Surgical History History of lymph node biopsy Family History Family History Sibling Cerebrovascular accident Mother Cardiac abnormality Social History Social History Social History: Lives home alone with no pets. Surrogate medical decision maker: Annemarie Ortiz, granddaughter. Code status: Full code. Smoking status: Never smoker Second hand tobacco smoke exposure: No Alcohol intake: never Substance use: never Substance use type: does not use Lack of Transportation: No Lack of Food: Never True Current Housing: I Have Housing Concerned About Future Housing: No Difficulty Paying Gas/Electric Bills: No Difficulty Paying for Meds: No Currently Unemployed: No Education: Bachelor's Degree Difficulty w/ Childcare or Family Care: No Spiritual care concerns: No Anes - Eval Final PreProcedure Day of Procedure 08/24/25 09:01 Patient weight: thin Heart: regular rate and rhythm and irregular rhythm Lungs: decreased breath sounds Airway: Mallampati scale class II Neurological: alert and oriented Last oral intake: >/= 8 hours ASA classification: IV Emergent: no Anesthetic plan: proceed Anesthesia type and monitoring: general LMA and standard monitoring Results Review: All pre-operative results and documents have been reviewed as part of the pre-operative evaluation. Given the patient's anemia, co morbid disease, propensity for bleeding during the hip repair and use of Eliquis, one unit of PRBC's will be given despite Hb of 8 preoperatively. Informed Consent: The patient's anesthetic plan and its attendant risks and benefits were discussed with the patient/family/POA. Questions were solicited and answers provided to the satisfaction of the patient/family/POA.
--- NOTE | 2025-08-24 09:03 | WPDHPUPDATE1 ---
History and Physical Update Update Date/Time: 08/24/25 09:03 History and Physical has been reviewed, including an updated exam of the patient. There are NO changes in the patient's condition. Risks, benefits, and alternatives have been discussed and questions answered. Patient agrees to proceed with procedure. Right Hip IM Kermit. Risk for bleeding and post op transfusion in addition to preop transfusion.
[2025-08-24] MEDS: ceFAZolin 2 GM in SODIUM CHLORIDE 0.9% IV 50 ML 100 ML IVPB ×2 (09:36→17:11)
[2025-08-24] MEDS: TRANEXAMIC ACID 1,000MG/ISO100 1,000 MG/100 ML BAG 200 MG IVPB (09:53)
[2025-08-24] MEDS: LIDO 1%/EPINEPHRINE 1:100,000 20 ML VIAL 30 ML INFILTRATE (10:22)
[2025-08-24] MEDS: SODIUM CHLORIDE 0.9% IV 1,000 ML 30 ML IV CONT (10:59)
[2025-08-24] MEDS: fentaNYL CITRATE INJ (*CRX) 100 MCG/2 ML VIAL 25 MCG IV PUSH ×2 (11:15→11:22)
--- NOTE | 2025-08-24 11:18 | P.OP_ITS ---
Procedure Note - Detailed Date of Procedure 08/24/25 Pre-op Diagnosis Right Hip Intertrochanteric Fracture Post-op Diagnosis Same Procedure Performed 1. Right Hip IT fracture IM Kermit Fixation with Gamma Nail 2. IntraOp Fluoroscopy Surgeon Jeremy Gonzalez MD Anesthesia General Indications Unstable Right Hip IT fx Findings Right Hip IT Fx Description of Procedure After interview of the patient for and informing the patient of her diagnosis and the proposed treatment plan, the right hip was marked in the holding area. The patient was also examined. She had no other injuries. The patient lives at home by herself alone and is relatively independent. She has a granddaughter who lives about [address] who checks up on her. Yesterday she was walking down stairs at her home 1 stair at a time missed the last step and fell onto her right hip. She was evaluated in the emergency department with hip x- rays that shows an unstable right hip intertrochanteric fracture. Patient's history is significant for chronic anemia and she presented with a hemoglobin of 8. 1 unit of packed red blood cells was transfused prior to the procedure. The patient was then brought to the operating placed in supine position at which time she underwent general anesthesia. She was then transferred to the fracture table with the left lower extremity flexed at 90? at the hip and knee with the left leg padded well. The perineal area was padded very well. The right lower extremity was placed in traction. Intraoperative fluoroscopy was used to verify reduction in AP and lateral views after traction was placed. The right hip was then prepped and draped in standard sterile fashion. Time-out performed to initiating the incision. Was performed to verify correct patient correct site of surgery correct procedure as well as to verify that indeed IV antibiotics was administered within 1 of the incision time, Ancef 2 g intravenous was administered. A stab incision was made proximal to the greater trochanter to place a guidewire. AP and lateral views were used to verify starting position of the guidewire which was at the tip of the greater trochanter on AP and lateral views. After this was done the in the incision was extended to 1 in in length. I then used an opening Reamer to ream the greater trochanter for the insertion of the nail. I then exchanged the short guidewire for long guidewire in place the nail in position. After the nail was placed in position I verified that the screw placement put be center center position based on AP and lateral views with fluoroscopy. I then proceeded to drill into the femoral neck and head using the guidewire. I measured this at 90 mm. I then proceeded to place a 90 mm screw which was placed center on center position within the femoral head and neck within 2.5 cm total distance AP and lateral view. I then obtained compression at the fracture site prior to securing the hip screw. After this was done I then proceeded to place a distal interlocking screw in the static position. All 3 incision sites were irrigated copiously I closed using Monocryl suture then Steri-Strips and Mepilex dressing was in place. The patient will be weight-bearing as tolerated. The patient was transferred to the recovery room stable condition. We will obtain postoperative hemoglobin to verify her hemoglobin status. Implants Elvira gamma 125 deg short Estimated Blood Loss 200 Drains No Packing No Pathology None sent Complications No immediate complications Condition Stable Disposition PACU
[2025-08-24 11:40] LABS: Hematocrit 32.3 % (37.0-47.0); Hemoglobin 10.0 g/dL (12.0-15.0)
[2025-08-24] MEDS: SACUBITRIL/VALSARTAN 24-26 MG TABLET 1 TAB PO (12:25)
[2025-08-24] MEDS: FERROUS SULFATE 325 MG TABLET PO (12:26)
[2025-08-24] MEDS: AMIODARONE HCL 100 MG TABLET PO (12:27)
[2025-08-24] MEDS: SODIUM CHLORIDE 0.9% IV 1,000 ML 125 ML IV CONT (12:27)
--- NOTE | 2025-08-24 14:23 | PM.EVENT ---
Event Note Event Note Event Note: Patient is a 89-year-old female admitted secondary to fall at home with injury resulting in a right femoral inter trochanteric fracture no as well as a superior and inferior pubic rami me and pubic symphysis fracture, fracture of the right sacral alae and inferior L4 endplate fracture. Patient was placed in AL and went to surgery for right hip ID fracture IM mary fixation and gamma nail. Patient was seen and assessed after surgery tolerated well alert and oriented did have some complaints for [id number] pain. Patient denied any chest pain, shortness a breath, mild nausea noted but no vomiting. PT/OT ordered for evaluation weight-bearing status per Ortho. I did speak with neurosurgery regarding L4 endplate fracture and ala sacral fracture who recommended no need for surgical intervention. No need for official neurosurgery consult at this time will re-consult if needed. Will continue with pain management and physical and occupational therapy as tolerated.
[2025-08-24] MEDS: SENNA/DOCUSATE SODIUM TABLET 2 TAB PO (17:11)
[2025-08-24] MEDS: APIXABAN 2.5 MG TABLET PO (21:47)
[2025-08-24] MEDS: TIMOLOL MALEATE 0.25% OP SOLN 5 ML BOTTLE 1 DROP EACH EYE (21:47)
[2025-08-24] MEDS: ONDANSETRON INJ 4 MG/2 ML VIAL IV PUSH (22:02)
[2025-08-24] MEDS: MELATONIN 3 MG TABLET PO (22:37)
[2025-08-25] VITALS (16 sets, daily range): BP systolic 104–148; BP diastolic 44–87; PULSE 88–100; RESP 14–18; TEMP 36.2–37.5; O2SAT 92–99
[2025-08-25] MEDS: ceFAZolin 2 GM in SODIUM CHLORIDE 0.9% IV 50 ML 100 ML IVPB ×2 (01:04→12:13)
[2025-08-25] MEDS: MORPHINE SULFATE (*CRX) 4 MG/ML INJ 2 MG IV PUSH ×3 (01:15→23:07)
[2025-08-25 06:30] LABS: Hematocrit 22.6 % (37.0-47.0); Immature Granulocyte Percent A 0.4 % (0-0.5); Immature Platelet Fraction Pct 2.7 % (0.9-11.2); Lymphocytes Absolute Auto 1.07 K/mm3 (0.9-3.2); Mean Corpuscular HGB Conc 30.5 g/dl (32-36); Mean Corpuscular Hemoglobin 27.1 pg (26-34); Mean Corpuscular Volume 88.6 fl (80-100); Nucleated Red Blood Cells Absolute Auto 0.000 K/mm3 (0.0-0.012); Nucleated Red Blood Cells Perc 0.0 % (0.0-0.2); Platelet Count Result 95 k/mm3 (150-375); Red Blood Count 2.55 M/mm3 (4.2-5.4); White Blood Count 8.1 K/mm3 (4.5-10.0)
[2025-08-25 06:53] LABS: Alanine Aminotransferase 10 U/L (6-35); Albumin Level 2.8 g/dL (3.5-5.1); Alkaline Phosphatase 59 U/L (38-126); Anion Gap 4 mmol/L (4-12); Aspartate Amino Transferase 25 U/L (14-36); Bilirubin,Total 0.5 mg/dL (0.2-1.3); Blood Urea Nitrogen 11 mg/dL (7-17); Calcium 8.0 mg/dL (8.4-10.2); Carbon Dioxide 21 mmol/L (22-30); Chloride 103 mmol/L (98-107); Estimated CRCL calculation 32 ml/min; Estimated Glomerular Filt Rate 53; Glucose 97 mg/dL (65-110); Magnesium 1.7 mg/dL (1.6-2.3); Potassium 4.1 mmol/L (3.4-5.0); Sodium 128 mmol/L (137-145); Total Protein 4.9 g/dL (6.3-8.2)
[2025-08-25 07:23] LABS: Hemoglobin 6.9 g/dL (12.0-15.0)
[2025-08-25 07:30] LABS: Anisocytosis 2+; Hypochromasia 1+; Target Cells Occasional
--- NOTE | 2025-08-25 07:30 | PC.NURSE ---
Hgb 6.9 noted, reported to provider, Cha Doss. New order to transfuse 1 unit of PRBC.
[2025-08-25 07:31] LABS: Burr Cells 1+; Schistocytes Rare
[2025-08-25 07:32] LABS: Ovalocytes Occasional
[2025-08-25] MEDS: ROSUVASTATIN 5 MG TABLET PO (09:40)
[2025-08-25] MEDS: AMIODARONE HCL 100 MG TABLET PO (09:40)
[2025-08-25] MEDS: FERROUS SULFATE 325 MG TABLET PO (09:41)
[2025-08-25] MEDS: PANTOPRAZOLE 40 MG TABLET PO (09:41)
[2025-08-25] MEDS: SENNA/DOCUSATE SODIUM TABLET 2 TAB PO (09:41)
[2025-08-25] MEDS: TIMOLOL MALEATE 0.25% OP SOLN 5 ML BOTTLE 1 DROP EACH EYE ×2 (09:42→21:27)
[2025-08-25] MEDS: SODIUM CHLORIDE 0.9% IV 1,000 ML 30 ML IV CONT ×2 (09:42)
[2025-08-25] MEDS: SODIUM CHLORIDE 0.9% IV 250 ML 30 ML IV CONT (09:43)
--- NOTE | 2025-08-25 10:20 | P.PNOP_ITS ---
Progress Note: A&P Assessment and Plan (1) Status post-operative repair of closed fracture of right hip: Code(s): Z98.890 - Other specified postprocedural states; Z87.81 - Personal history of (healed) traumatic fracture Status: Acute Plan POD 1: Right Hip IM Kermit Fixation, - anemia, currently being transfused. (Hgb 10.0 postop to 6.9 POD 1) Subjective Subjective Date/Time Seen: 08/25/25 10:20 Post Op day: 1 (Right Hip IM Kermit Fixation) Principal diagnosis: Right Hip IM Kermit Fixation Interval history: Awake, sedated, moderate Right Hip Pain Exam Narrative: Right Hip Bandaged, dry. Objective Data Vital Signs Vital Signs: Vital Signs - 24 hr 08/24/25 10:59 08/24/25 11:10 08/24/25 11:25 Temperature 36.5 C Pulse Rate 96 93 93 Respiratory Rate 15 12 12 Blood Pressure 158/80 H 173/73 H 165/73 H Pulse Oximetry 96 93 97 Oxygen Delivery Simple Face Mask Nasal Cannula Nasal Cannula Oxygen Flow Rate 8 2 2 08/24/25 11:33 08/24/25 11:40 08/24/25 11:55 Temperature Pulse Rate 90 95 Respiratory Rate 12 16 Blood Pressure 171/67 H 170/78 H Pulse Oximetry 97 97 94 Oxygen Delivery Nasal Cannula Nasal Cannula Nasal Cannula Oxygen Flow Rate 2 2 2 08/24/25 12:15 08/24/25 12:30 08/24/25 13:00 Temperature 36.1 C L 36.0 C L 36.5 C Pulse Rate 91 89 96 Respiratory Rate 16 16 16 Blood Pressure 158/67 H 114/58 L 137/71 Pulse Oximetry 99 97 97 Oxygen Delivery Oxygen Flow Rate 08/24/25 13:18 08/24/25 14:00 08/24/25 14:13 Temperature 36.2 C L Pulse Rate 85 Respiratory Rate 16 Blood Pressure 133/51 L Pulse Oximetry 96 Oxygen Delivery Nasal Cannula Room Air Oxygen Flow Rate 2 08/24/25 16:00 08/24/25 16:59 08/24/25 20:00 Temperature 36.7 C Pulse Rate 97 100 Respiratory Rate 14 Blood Pressure 125/58 L Pulse Oximetry 95 Oxygen Delivery Room Air Oxygen Flow Rate 08/24/25 20:00 08/24/25 20:15 08/25/25 00:00 Temperature 37.1 C Pulse Rate 92 94 88 Respiratory Rate 16 Blood Pressure 94/46 L Pulse Oximetry 96 Oxygen Delivery Oxygen Flow Rate 08/25/25 04:00 08/25/25 04:59 08/25/25 08:17 Temperature 36.7 C 36.8 C Pulse Rate 89 94 97 Respiratory Rate 17 18 Blood Pressure 120/46 L 118/87 Pulse Oximetry 92 99 Oxygen Delivery Oxygen Flow Rate 08/25/25 08:32 08/25/25 08:59 08/25/25 09:32 Temperature 36.9 C 36.2 C L 37.1 C Pulse Rate 98 95 91 Respiratory Rate 18 14 18 Blood Pressure 126/46 L 104/47 L 128/44 L Pulse Oximetry 93 92 96 Oxygen Delivery Oxygen Flow Rate 08/25/25 09:40 Temperature Pulse Rate 90 Respiratory Rate Blood Pressure Pulse Oximetry Oxygen Delivery Oxygen Flow Rate Intake/Output Intake/Output: Intake & Output 08/22/25 08/23/25 08/24/25 08/25/25 23:59 23:59 23:59 23:59 Intake Total 22.5 980 800 Output Total 1700 350 Balance 22.5 -720 450 Meds/Results Medications: Active Medications Generic Name Dose Route Start Last Admin Trade Name Freq PRN Reason Stop Dose Admin Acetaminophen 500 mg 08/23/25 23:14 Acetaminophen 500 Mg Tablet PO Q6H PRN Pain Rated 1-3 Hydrocodone Bitart/Acetaminophen 1 tab 08/23/25 23:14 Hydrocodone/Acetaminophen (*Crx) 10-325 Mg Tablet PO Q4H PRN Pain Rated 4-6 Amiodarone HCl 100 mg 08/25/25 09:00 08/25/25 09:40 Amiodarone Hcl 100 Mg Tablet PO 100 mg DAILY JEREMIAH Administration Apixaban 2.5 mg 08/24/25 21:00 08/25/25 09:42 Apixaban 2.5 Mg Tablet PO Not Given Q12HR JEREMIAH Benzonatate 100 mg 08/24/25 09:08 Benzonatate 100 Mg Capsule PO Q6H PRN Cough Fentanyl Citrate 25 mcg 08/24/25 09:10 08/24/25 11:22 Fentanyl Citrate Inj (*Crx) 100 Mcg/2 Ml Vial IV PUSH 25 mcg Q2M PRN Administration Pain Ferrous Sulfate 325 mg 08/24/25 11:00 08/25/25 09:41 Ferrous Sulfate 325 Mg Tablet PO 325 mg DAILY@0800 JEREMIAH Administration Hydromorphone HCl 1 mg 08/24/25 11:13 Hydromorphone Hcl Inj (*Crx) 1 Mg/Ml Syr IV PUSH Q2H PRN Breakthrough Pain Rated 7-10 or NPO Hydromorphone HCl 0.5 mg 08/24/25 11:13 Hydromorphone Hcl Inj (*Crx) 1 Mg/Ml Syr IV PUSH Q2H PRN Breakthrough Pain Rated 4-6 or NPO Sodium Chloride 1,000 mls @ 30 mls/hr 08/24/25 09:10 08/25/25 09:42 Normal Saline Iv IV CONT 30 mls/hr .Q24H JEREMIAH Administration Sodium Chloride 1,000 mls @ 30 mls/hr 08/24/25 09:10 08/25/25 09:42 Normal Saline Iv IV CONT 30 mls/hr .Q24H JEREMIAH Administration Cefazolin Sodium 2 gm/ Sodium 50 mls @ 100 mls/hr 08/24/25 18:00 08/25/25 01:04 Chloride IVPB 08/25/25 10:29 100 mls/hr Q8H JEREMIAH Administration Sodium Chloride 250 mls @ 30 mls/hr 08/25/25 07:29 08/25/25 09:43 Normal Saline Iv IV CONT 08/25/25 15:48 30 mls/hr .Q8H20M STA Administration Melatonin 3 mg 08/24/25 09:08 08/24/25 22:37 Melatonin 3 Mg Tablet PO 3 mg HS PRN Administration Insomnia Morphine Sulfate 2 mg 08/23/25 23:13 08/25/25 01:15 Morphine Sulfate (*Crx) 4 Mg/Ml Inj IV PUSH 2 mg Q2H PRN Administration Pain Rated 7-10 Naloxone HCl 0.1 mg 08/24/25 11:13 Naloxone Hcl 0.4 Mg/Ml Vial IV PUSH Q2M PRN Opiate Reversal Ondansetron HCl 4 mg 08/24/25 11:13 08/24/25 22:02 Ondansetron Inj 4 Mg/2 Ml Vial IV PUSH 4 mg Q4H PRN Administration Nausea And Vomiting Pantoprazole Sodium 40 mg 08/25/25 09:00 08/25/25 09:41 Pantoprazole 40 Mg Tablet PO 40 mg DAILY JEREMIAH Administration Phenyleph/Shark Oil/Min Oil/Petrol 1 applic 08/24/25 21:00 08/24/25 21:48 Phenyleph/Shark Oil/Mo/Petrol Cream 26 Gm RECTAL Not Given HS JEREMIAH Polyethylene Glycol 17 gm 08/24/25 09:11 Polyethylene Glycol 3350 17 Gm Powd.Pack PO QAM PRN Constipation Polyethylene Glycol 17 gm 08/25/25 09:00 08/25/25 09:42 Polyethylene Glycol 3350 17 Gm Powd.Pack PO Not Given QAM JEREMIAH Rosuvastatin Calcium 5 mg 08/25/25 09:00 08/25/25 09:40 Rosuvastatin 5 Mg Tablet PO 5 mg Q48HR JEREMIAH Administration Sacubitril/Valsartan 1 tab 08/24/25 11:00 08/25/25 09:42 Sacubitril/Valsartan 24-26 Mg Tablet PO Not Given Q12HR JEREMIAH Senna/Docusate Sodium 2 tab 08/24/25 17:00 08/25/25 09:41 Senna/Docusate Sodium Tablet PO 2 tab BID JEREMIAH Administration Timolol Maleate 1 drop 08/24/25 09:10 08/25/25 09:42 Timolol Maleate 0.25% Op Soln 5 Ml Bottle EACH EYE 1 drop Q12HR JEREMIAH Administration Radiology Results: ITS Impressions Hip/Pelvis X-Ray 08/23/25 21:38 Impression: 1: Mildly displaced angulated right femoral intertrochanteric fracture. 2: Age-indeterminate fractures right superior and inferior pubic rami. Chest X-Ray 08/23/25 21:41 Impression: 1: Cardiomegaly with mild interstitial edema. Head CT 08/23/25 21:56 IMPRESSION: 1. No acute intracranial abnormality. Cervical Spine CT 08/23/25 22:01 IMPRESSION: 1. No acute abnormality of the cervical spine. Chest/Abdomen/Pelvis/Spine CT 08/23/25 22:05 IMPRESSION: 1. Multiple fractures: Right femoral intertrochanteric fracture with varus angulation, fractures right superior and inferior pubic rami and pubic symphysis, fracture right sacral ala and possible inferior endplate fracture L4, age indeterminate. 2: Small pleural effusions with dependent atelectasis. Labs Labs: Laboratory Results - last 24 hr 08/24/25 08/24/25 08/25/25 05:50 11:30 05:59 WBC 8.1 RBC 2.55 L Hgb 10.0 L 6.9 L* D Hct 32.3 L 22.6 L MCV 88.6 MCH 27.1 MCHC 30.5 L RDW 21.1 H Plt Count 95 L MPV 10.5 H Immature Gran % (Auto) 0.4 Neut % (Auto) 71.6 Lymph % (Auto) 13.3 L [place] % (Auto) 12.2 H Eos % (Auto) 2.0 Baso % (Auto) 0.5 Lymph # (Auto) 1.07 [place] # (Auto) 1.0 H Eos # (Auto) 0.2 Baso # (Auto) 0.0 Abs Immat Gran (auto) 0.03 Absolute Neuts (auto) 5.8 Absolute Nucleated RBC 0.000 Band Neutrophils % Not Reportable Nucleated RBC % 0.0 Platelet Estimate Decreased % Immature Plt Fraction 2.7 Hypochromasia 1+ Anisocytosis 2+ Target Cells Occasional Ovalocytes Occasional [place] Cells 1+ Schistocytes Rare Sodium 128 L Potassium 4.1 Chloride 103 Carbon Dioxide 21 L Anion Gap 4 BUN 11 Creatinine 0.99 Estim Creat Clear Calc 32 Estimated GFR 53 L Glucose 97 Calcium 8.0 L Magnesium 1.7 Total Bilirubin 0.5 AST 25 ALT 10 Alkaline Phosphatase 59 Total Protein 4.9 L Albumin 2.8 L Blood Type A Negative Antibody Screen Negative Crossmatch See Detail
--- NOTE | 2025-08-25 11:32 | P.PNIM_ITS ---
Assessment and Plan Assessment and Plan (1) Closed hip fracture: Code(s): S72.009A - Fracture of unspecified part of neck of unspecified femur, initial encounter for closed fracture Status: Acute Assessment and Plan: patient presented post fall with right hip fracture as well multiple fractures listed below. * ortho consulted and following * IM mary fixation to right hip 08/24/2025 * POD 1 * pain management with oral and IV pain medicine * bowel regimen * PT/OT weight-bearing as tolerated * Eliquis DVT prophylaxis * SCDs * encourage oral hydration * incentive spirometer while awake * ice gel pads (2) Closed sacral fracture: Code(s): S32.10XA - Unspecified fracture of sacrum, initial encounter for closed fracture Status: Acute Assessment and Plan: I did speak with neurosurgery regarding L4 endplate fracture and ala sacral fracture who recommended no need for surgical intervention. No need for official neurosurgery consult at this time will re-consult if needed. Will continue with pain management and physical and occupational therapy as tolerated. * pain management * PT/OT * weight-bearing as tolerated (3) Closed fracture of pubic ramus: Code(s): S32.599A - Other specified fracture of unspecified pubis, initial encounter for closed fracture Status: Acute Assessment and Plan: See above * conservative treatment no need for surgical intervention * weight-bearing as tolerated * pain management * PT/OT (4) Closed fracture of symphysis pubis: Code(s): S32.599A - Other specified fracture of unspecified pubis, initial encounter for closed fracture Status: Acute Assessment and Plan: See Above (5) Fall: Code(s): W19.XXXA - Unspecified fall, initial encounter Status: Acute Assessment and Plan: * POD #1 right hip fracture repair * PT/OT * fall precautions (6) HTN (hypertension): Qualifiers: Hypertension type: primary hypertension Qualified Code(s): I10 - Essential (primary) hypertension Code(s): I10 - Essential (primary) hypertension Status: Acute Assessment and Plan: * continue patient's Entresto * monitor BP per unit protocol (7) Heart failure with mid-range ejection fraction: Code(s): I50.22 - Chronic systolic (congestive) heart failure Status: Acute Assessment and Plan: * continue Entresto (8) Paroxysmal atrial fibrillation: Code(s): I48.0 - Paroxysmal atrial fibrillation Status: Acute Assessment and Plan: * continue amiodarone will hold Eliquis for now due to anemia * heart rate controlled (9) Hyperlipidemia: Code(s): E78.5 - Hyperlipidemia, unspecified Status: Acute Assessment and Plan: * continued atorvastatin (10) Hyponatremia: Code(s): E87.1 - Hypo-osmolality and hyponatremia Status: Acute Assessment and Plan: patient's sodium 128 today does have history of chronic hyponatremia likely secondary to trauma * DC fluids * Will monitor trend a need to put on fluid restriction if continues to decrease or add salt tablets * no neurological deficit (11) Anemia: Qualifiers: Anemia type: unspecified type Qualified Code(s): D64.9 - Anemia, unspecified Code(s): D64.9 - Anemia, unspecified Status: Acute Assessment and Plan: patient reports she does have a history of anemia and was previously taking iron supplements at home but stopped taking them did not feel she needed them patient's hemoglobin 8.0 on admission postop 10 after receiving unit of blood has dropped down to 6.9 which is expected after hip surgery. * gave 1 unit of PRBCs * no evidence of GIB * resume patient's ferrous sulfate * Trend H&H * Transfuse if Hgb <7.0 * hemodynamically stable * Hold Eliquis for now * Patient follows with hemoc outpatient and has been receiving iron transfusions. Plan Code status: Full code per patient DVT prophylaxis: Eliquis on hold/SCD Stress ulcer prophylaxis: Protonix 40 daily PT/OT notes: PT/OT weight-bearing as tolerated Disposition: patient continues admission to the medical unit postop day 1 from IM mary fixation to the right hip she also has multiple other noted nonsurgical fractures PT and OT have been ordered for evaluation and recommendations for discharge needs will likely need SNF once stable. Medical Record Review I have reviewed the following patient records and this information was taken into consideration when formulating the assessment and plan.: previous labs, previous ER visits and previous hospitalizations Consultations Consultations: I have discussed the care of this pt with the consulting providers. Time Spent With Patient Time with patient: 15 - 25 minutes Subjective Date/time seen: 08/25/25 11:32 Interval history: Patient is 89-year-old female who was admitted for further evaluation and treatment after a fall at home resulting in multiple fractures including closed fracture of the right hip which patient underwent IM mary fixation for. 08/25/2025 Patient comfortable in bed denies CP, SOB, ABD pain , N/V. Still with moderate pain with physical therapy as expected. Hgb had dropped to 6.9 transfused 1 unit PRBC. Review of Systems Review of Systems: All systems reviewed & are unremarkable except as noted in HPI and below (Subjective) Exam Const: General: comfortable and no acute distress HENMT: Mouth: Yes moist mucous membranes Eyes: Pupils: Equal, round and reactive pupils present Neck: Neck: supple Resp: Effort & Inspection: normal respiratory effort Auscultation: clear to auscultation bilaterally Cardio: Rate: regular rate Rhythm: regular rhythm GI: Inspection: non-distended GI Palp: Yes Soft to palpation Auscultation: normal bowel sounds Urinary Catheter: Urinary Catheter: patent and draining and urine clear Neuro: Cranial nerves: Yes Equal, round and reactive pupils present Speech: normal speech Motor exam (neuro): Abnormal motor strength present (Pain with movement ) Sensory Exam: normal sensation Extrem: General: normal to inspection and no edema Psych: Mental Status: mental status grossly normal Affect: normal affect Objective Data Vital Signs Vital Signs: Vital Signs - 24 hr 08/24/25 11:33 08/24/25 11:40 08/24/25 11:55 Temperature Pulse Rate 90 95 Respiratory Rate 12 16 Blood Pressure 171/67 H 170/78 H Pulse Oximetry 97 97 94 Oxygen Delivery Nasal Cannula Nasal Cannula Nasal Cannula Oxygen Flow Rate 2 2 2 08/24/25 12:15 08/24/25 12:30 08/24/25 13:00 Temperature 96.9 F L 96.8 F L 97.7 F Pulse Rate 91 89 96 Respiratory Rate 16 16 16 Blood Pressure 158/67 H 114/58 L 137/71 Pulse Oximetry 99 97 97 Oxygen Delivery Oxygen Flow Rate 08/24/25 13:18 08/24/25 14:00 08/24/25 14:13 Temperature 97.1 F L Pulse Rate 85 Respiratory Rate 16 Blood Pressure 133/51 L Pulse Oximetry 96 Oxygen Delivery Nasal Cannula Room Air Oxygen Flow Rate 2 08/24/25 16:00 08/24/25 16:59 08/24/25 20:00 Temperature 98.1 F Pulse Rate 97 100 Respiratory Rate 14 Blood Pressure 125/58 L Pulse Oximetry 95 Oxygen Delivery Room Air Oxygen Flow Rate 08/24/25 20:00 08/24/25 20:15 08/25/25 00:00 Temperature 98.8 F Pulse Rate 92 94 88 Respiratory Rate 16 Blood Pressure 94/46 L Pulse Oximetry 96 Oxygen Delivery Oxygen Flow Rate 08/25/25 04:00 08/25/25 04:59 08/25/25 08:00 Temperature 98.0 F Pulse Rate 89 94 100 Respiratory Rate 17 Blood Pressure 120/46 L Pulse Oximetry 92 Oxygen Delivery Oxygen Flow Rate 08/25/25 08:17 08/25/25 08:32 08/25/25 08:59 Temperature 98.2 F 98.4 F 97.2 F L Pulse Rate 97 98 95 Respiratory Rate 18 18 14 Blood Pressure 118/87 126/46 L 104/47 L Pulse Oximetry 99 93 92 Oxygen Delivery Oxygen Flow Rate 08/25/25 09:32 08/25/25 09:40 Temperature 98.8 F Pulse Rate 91 90 Respiratory Rate 18 Blood Pressure 128/44 L Pulse Oximetry 96 Oxygen Delivery Oxygen Flow Rate Intake/Output Intake/Output: Intake & Output 08/22/25 08/23/25 08/24/25 08/25/25 23:59 23:59 23:59 23:59 Intake Total 22.5 980 800 Output Total 1700 350 Balance 22.5 -720 450 Meds/Results Medications: Active Medications Generic Name Dose Route Start Last Admin Trade Name Freq PRN Reason Stop Dose Admin Acetaminophen 500 mg 08/23/25 23:14 Acetaminophen 500 Mg Tablet PO Q6H PRN Pain Rated 1-3 Hydrocodone Bitart/Acetaminophen 1 tab 08/23/25 23:14 Hydrocodone/Acetaminophen (*Crx) 10-325 Mg Tablet PO Q4H PRN Pain Rated 4-6 Amiodarone HCl 100 mg 08/25/25 09:00 08/25/25 09:40 Amiodarone Hcl 100 Mg Tablet PO 100 mg DAILY [facility] Administration Apixaban 2.5 mg 08/24/25 21:00 08/25/25 09:42 Apixaban 2.5 Mg Tablet PO Not Given Q12HR [facility] Benzonatate 100 mg 08/24/25 09:08 Benzonatate 100 Mg Capsule PO Q6H PRN Cough Fentanyl Citrate 25 mcg 08/24/25 09:10 08/24/25 11:22 Fentanyl Citrate Inj (*Crx) 100 Mcg/2 Ml Vial IV PUSH 25 mcg Q2M PRN Administration Pain Ferrous Sulfate 325 mg 08/24/25 11:00 08/25/25 09:41 Ferrous Sulfate 325 Mg Tablet PO 325 mg DAILY@0800 JEREMIAH Administration Hydromorphone HCl 1 mg 08/24/25 11:13 Hydromorphone Hcl Inj (*Crx) 1 Mg/Ml Syr IV PUSH Q2H PRN Breakthrough Pain Rated 7-10 or NPO Hydromorphone HCl 0.5 mg 08/24/25 11:13 Hydromorphone Hcl Inj (*Crx) 1 Mg/Ml Syr IV PUSH Q2H PRN Breakthrough Pain Rated 4-6 or NPO Sodium Chloride 1,000 mls @ 30 mls/hr 08/24/25 09:10 08/25/25 09:42 Normal Saline Iv IV CONT 30 mls/hr .Q24H JEREMIAH Administration Sodium Chloride 1,000 mls @ 30 mls/hr 08/24/25 09:10 08/25/25 09:42 Normal Saline Iv IV CONT 30 mls/hr .Q24H JEREMIAH Administration Sodium Chloride 250 mls @ 30 mls/hr 08/25/25 07:29 08/25/25 09:43 Normal Saline Iv IV CONT 08/25/25 15:48 30 mls/hr .Q8H20M STA Administration Melatonin 3 mg 08/24/25 09:08 08/24/25 22:37 Melatonin 3 Mg Tablet PO 3 mg HS PRN Administration Insomnia Morphine Sulfate 2 mg 08/23/25 23:13 08/25/25 01:15 Morphine Sulfate (*Crx) 4 Mg/Ml Inj IV PUSH 2 mg Q2H PRN Administration Pain Rated 7-10 Naloxone HCl 0.1 mg 08/24/25 11:13 Naloxone Hcl 0.4 Mg/Ml Vial IV PUSH Q2M PRN Opiate Reversal Ondansetron HCl 4 mg 08/24/25 11:13 08/24/25 22:02 Ondansetron Inj 4 Mg/2 Ml Vial IV PUSH 4 mg Q4H PRN Administration Nausea And Vomiting Pantoprazole Sodium 40 mg 08/25/25 09:00 08/25/25 09:41 Pantoprazole 40 Mg Tablet PO 40 mg DAILY JEREMIAH Administration Phenyleph/Shark Oil/Min Oil/Petrol 1 applic 08/24/25 21:00 08/24/25 21:48 Phenyleph/Shark Oil/Mo/Petrol Cream 26 Gm RECTAL Not Given HS JEREMIAH Polyethylene Glycol 17 gm 08/24/25 09:11 Polyethylene Glycol 3350 17 Gm Powd.Pack PO QAM PRN Constipation Polyethylene Glycol 17 gm 08/25/25 09:00 08/25/25 09:42 Polyethylene Glycol 3350 17 Gm Powd.Pack PO Not Given QAM JEREMIAH Rosuvastatin Calcium 5 mg 08/25/25 09:00 08/25/25 09:40 Rosuvastatin 5 Mg Tablet PO 5 mg Q48HR JEREMIAH Administration Sacubitril/Valsartan 1 tab 08/24/25 11:00 08/25/25 09:42 Sacubitril/Valsartan 24-26 Mg Tablet PO Not Given Q12HR JEREMIAH Senna/Docusate Sodium 2 tab 08/24/25 17:00 08/25/25 09:41 Senna/Docusate Sodium Tablet PO 2 tab BID JEREMIAH Administration Timolol Maleate 1 drop 08/24/25 09:10 08/25/25 09:42 Timolol Maleate 0.25% Op Soln 5 Ml Bottle EACH EYE 1 drop Q12HR JEREMIAH Administration Radiology Results: ITS Impressions Hip/Pelvis X-Ray 08/23/25 21:38 Impression: 1: Mildly displaced angulated right femoral intertrochanteric fracture. 2: Age-indeterminate fractures right superior and inferior pubic rami. Chest X-Ray 08/23/25 21:41 Impression: 1: Cardiomegaly with mild interstitial edema. Head CT 08/23/25 21:56 IMPRESSION: 1. No acute intracranial abnormality. Cervical Spine CT 08/23/25 22:01 IMPRESSION: 1. No acute abnormality of the cervical spine. Chest/Abdomen/Pelvis/Spine CT 08/23/25 22:05 IMPRESSION: 1. Multiple fractures: Right femoral intertrochanteric fracture with varus angulation, fractures right superior and inferior pubic rami and pubic symphysis, fracture right sacral ala and possible inferior endplate fracture L4, age indeterminate. 2: Small pleural effusions with dependent atelectasis. Labs Labs: Laboratory Results - last 24 hr 08/24/25 08/24/25 08/25/25 05:50 11:30 05:59 WBC 8.1 RBC 2.55 L Hgb 10.0 L 6.9 L* D Hct 32.3 L 22.6 L MCV 88.6 MCH 27.1 MCHC 30.5 L RDW 21.1 H Plt Count 95 L MPV 10.5 H Immature Gran % (Auto) 0.4 Neut % (Auto) 71.6 Lymph % (Auto) 13.3 L [place] % (Auto) 12.2 H Eos % (Auto) 2.0 Baso % (Auto) 0.5 Lymph # (Auto) 1.07 [place] # (Auto) 1.0 H Eos # (Auto) 0.2 Baso # (Auto) 0.0 Abs Immat Gran (auto) 0.03 Absolute Neuts (auto) 5.8 Absolute Nucleated RBC 0.000 Band Neutrophils % Not Reportable Nucleated RBC % 0.0 Platelet Estimate Decreased % Immature Plt Fraction 2.7 Hypochromasia 1+ Anisocytosis 2+ Target Cells Occasional Ovalocytes Occasional [place] Cells 1+ Schistocytes Rare Sodium 128 L Potassium 4.1 Chloride 103 Carbon Dioxide 21 L Anion Gap 4 BUN 11 Creatinine 0.99 Estim Creat Clear Calc 32 Estimated GFR 53 L Glucose 97 Calcium 8.0 L Magnesium 1.7 Total Bilirubin 0.5 AST 25 ALT 10 Alkaline Phosphatase 59 Total Protein 4.9 L Albumin 2.8 L Blood Type A Negative Antibody Screen Negative Crossmatch See Detail Attestation: I personally reviewed all lab results Imaging Attestation: I personally reviewed this imaging study Quality VTE Prophylaxis VTE prophylaxis: mechanical ordered -Patient's previous records reviewed on admission -ER notes reviewed in detail on admission -discussed all findings and current treatment plan with patient/Family/POA -Consultations reviewed for recommendations -Patient's disposition for safe discharge discussed with case loader operator -radiology imaging, EKG and test results I have personally reviewed and interpreted unless otherwise specified Dictation performed by [employer] direct speech recognition software, therefore customer expert variants and typographical errors may occur. Hospitalist MIPS Advance Care Plan I have confirmed that the patient's Advanced Care Plan is present, code status is documented, or surrogate decision maker is listed in patient medical record.: Yes Medication Reconciliation I have utilized all available resources to obtain, update and review the patients current medications (includes all prescriptions, OTC, herbals, cannabis, and nutritional supplements).: Yes The patient is not eligible for med reconciliation; the patient is in a emergent medical situation where delaying treatment would jeopardize the patients health.: No
[2025-08-25 13:04] LABS: Hematocrit 26.9 % (37.0-47.0); Hemoglobin 8.6 g/dL (12.0-15.0)
[2025-08-25] MEDS: PHENYLEPH/SHARK OIL/MO/PETROL CREAM 26 GM 1 APPLIC RECTAL (21:00)
[2025-08-25] MEDS: SACUBITRIL/VALSARTAN 24-26 MG TABLET 1 TAB PO (21:25)
[2025-08-26] VITALS (11 sets, daily range): BP systolic 98–142; BP diastolic 44–73; PULSE 76–93; RESP 16–20; TEMP 36.6–37.2; O2SAT 94–98
[2025-08-26 06:23] LABS: Hematocrit 27.4 % (37.0-47.0); Hemoglobin 8.7 g/dL (12.0-15.0); Immature Platelet Fraction Pct 3.6 % (0.9-11.2); Mean Corpuscular HGB Conc 31.8 g/dl (32-36); Mean Corpuscular Hemoglobin 27.7 pg (26-34); Mean Corpuscular Volume 87.3 fl (80-100); Platelet Count Result 92 k/mm3 (150-375); Red Blood Count 3.14 M/mm3 (4.2-5.4); White Blood Count 8.7 K/mm3 (4.5-10.0)
[2025-08-26 07:06] LABS: Alanine Aminotransferase 8 U/L (6-35); Albumin Level 3.1 g/dL (3.5-5.1); Alkaline Phosphatase 69 U/L (38-126); Anion Gap 4 mmol/L (4-12); Aspartate Amino Transferase 24 U/L (14-36); Bilirubin,Total 1.1 mg/dL (0.2-1.3); Blood Urea Nitrogen 12 mg/dL (7-17); Calcium 8.6 mg/dL (8.4-10.2); Carbon Dioxide 23 mmol/L (22-30); Chloride 102 mmol/L (98-107); Estimated CRCL calculation 32 ml/min; Estimated Glomerular Filt Rate 54; Glucose 98 mg/dL (65-110); Magnesium 1.9 mg/dL (1.6-2.3); Sodium 129 mmol/L (137-145); Total Protein 5.6 g/dL (6.3-8.2)
[2025-08-26 07:26] LABS: Potassium 4.1 mmol/L (3.4-5.0)
[2025-08-26] MEDS: SENNA/DOCUSATE SODIUM TABLET 2 TAB PO ×2 (08:24→17:02)
[2025-08-26] MEDS: HYDROcodone/acetaminophen (*CRX) 10-325 MG TABLET 1 TAB PO ×2 (08:25→17:03)
[2025-08-26] MEDS: FERROUS SULFATE 325 MG TABLET PO (08:26)
[2025-08-26] MEDS: PANTOPRAZOLE 40 MG TABLET PO (08:26)
[2025-08-26] MEDS: SACUBITRIL/VALSARTAN 24-26 MG TABLET 1 TAB PO ×2 (08:26→23:19)
[2025-08-26] MEDS: AMIODARONE HCL 100 MG TABLET PO (08:27)
[2025-08-26] MEDS: TIMOLOL MALEATE 0.25% OP SOLN 5 ML BOTTLE 1 DROP EACH EYE ×2 (08:28→21:00)
--- NOTE | 2025-08-26 09:03 | P.PNIM_ITS ---
Assessment and Plan Assessment and Plan (1) Closed hip fracture: Code(s): S72.009A - Fracture of unspecified part of neck of unspecified femur, initial encounter for closed fracture Status: Acute Assessment and Plan: patient presented post fall with right hip fracture as well multiple fractures listed below. * ortho consulted and following * IM mary fixation to right hip 08/24/2025 * POD 2 * pain management with oral and IV pain medicine * bowel regimen * PT/OT weight-bearing as tolerated * Eliquis DVT prophylaxis held due to anemia but will resume 08/27/2025 * SCDs * encourage oral hydration * incentive spirometer while awake * ice gel pads * Compression stocking (2) Closed sacral fracture: Code(s): S32.10XA - Unspecified fracture of sacrum, initial encounter for closed fracture Status: Acute Assessment and Plan: I did speak with neurosurgery regarding L4 endplate fracture and ala sacral fracture who recommended no need for surgical intervention. No need for official neurosurgery consult at this time will re-consult if needed. Will con tinue with pain management and physical and occupational therapy as tolerated. * pain management * PT/OT * weight-bearing as tolerated (3) Closed fracture of pubic ramus: Code(s): S32.599A - Other specified fracture of unspecified pubis, initial encounter for closed fracture Status: Acute Assessment and Plan: See above * conservative treatment no need for surgical intervention * weight-bearing as tolerated * pain management * PT/OT (4) Closed fracture of symphysis pubis: Code(s): S32.599A - Other specified fracture of unspecified pubis, initial encounter for closed fracture Status: Acute Assessment and Plan: See Above (5) Fall: Code(s): W19.XXXA - Unspecified fall, initial encounter Status: Acute Assessment and Plan: * POD #1 right hip fracture repair * PT/OT * fall precautions (6) HTN (hypertension): Qualifiers: Hypertension type: primary hypertension Qualified Code(s): I10 - Essential (primary) hypertension Code(s): I10 - Essential (primary) hypertension Status: Acute Assessment and Plan: * continue patient's Entresto * monitor BP per unit protocol (7) Heart failure with mid-range ejection fraction: Code(s): I50.22 - Chronic systolic (congestive) heart failure Status: Acute Assessment and Plan: * continue Entresto (8) Paroxysmal atrial fibrillation: Code(s): I48.0 - Paroxysmal atrial fibrillation Status: Acute Assessment and Plan: * continue amiodarone will hold Eliquis for now due to anemia will resume 08/27/2025 * heart rate controlled (9) Hyperlipidemia: Code(s): E78.5 - Hyperlipidemia, unspecified Status: Acute Assessment and Plan: * continued atorvastatin (10) Hyponatremia: Code(s): E87.1 - Hypo-osmolality and hyponatremia Status: Acute Assessment and Plan: patient's sodium 128 does have history of chronic hyponatremia likely secondary to trauma * DC fluids * Will monitor trend a need to put on fluid restriction if continues to decrease or add salt tablets * no neurological deficit * Improving 129 (11) Anemia: Qualifiers: Anemia type: unspecified type Qualified Code(s): D64.9 - Anemia, unspecified Code(s): D64.9 - Anemia, unspecified Status: Acute Assessment and Plan: patient reports she does have a history of anemia and was previously taking iron supplements at home but stopped taking them did not feel she needed them patient's hemoglobin 8.0 on admission postop 10 after receiving unit of blood has dropped down to 6.9 which is expected after hip surgery.Anemia secondary to iron deficiency and acute blood loss from surgical procedure. * gave 1 unit of PRBCs * no evidence of GIB * resume patient's ferrous sulfate * Trend H&H * Transfuse if Hgb <7.0 * hemodynamically stable * Hold Eliquis for now * Patient follows with [facility] outpatient and has been receiving iron transfusions. Plan Code status: Full code per patient DVT prophylaxis: Eliquis on hold/SCD Stress ulcer prophylaxis: Protonix 40 daily PT/OT notes: PT/OT weight-bearing as tolerated Disposition: patient continues admission to the medical unit postop day 1 from IM mary fixation to the right hip she also has multiple other noted nonsurgical fractures PT and OT have been ordered for evaluation and recommendations for discharge needs will likely need SNF once stable. Medical Record Review I have reviewed the following patient records and this information was taken into consideration when formulating the assessment and plan.: previous labs, previous ER visits and previous hospitalizations Consultations Consultations: I have discussed the care of this pt with the consulting providers. Time Spent With Patient Time with patient: 15 - 25 minutes Subjective Date/time seen: 08/26/25 09:03 Interval history: Patient is 89-year-old female who was admitted for further evaluation and treatment after a fall at home resulting in multiple fractures including closed fracture of the right hip which patient underwent IM mary fixation for. 08/26/2025 Patient with moderate right hip pain after transfer from chair to bed but progressing with PT/OT. Patient still with no BM but passing gas states peggy dos not feel contipated at this time. Review of Systems Review of Systems: All systems reviewed & are unremarkable except as noted in HPI and below (Subjective) Exam Const: General: comfortable and no acute distress HENMT: Mouth: Yes moist mucous membranes Eyes: Pupils: Equal, round and reactive pupils present Neck: Neck: supple Resp: Effort & Inspection: normal respiratory effort Auscultation: clear to auscultation bilaterally Cardio: Rate: regular rate Rhythm: regular rhythm GI: Inspection: non-distended Auscultation: normal bowel sounds Urinary Catheter: Urinary Catheter: patent and draining and urine clear Neuro: Cranial nerves: Yes Equal, round and reactive pupils present Speech: normal speech Motor exam (neuro): 5/5 motor strength present throughout and Abnormal motor strength present (Pain with movement ) Sensory Exam: normal sensation Extrem: General: normal to inspection and no edema Psych: Mental Status: mental status grossly normal Affect: normal affect Objective Data Vital Signs Vital Signs: Vital Signs - 24 hr 08/25/25 09:32 08/25/25 09:40 08/25/25 10:32 Temperature 98.8 F 97.7 F Pulse Rate 91 90 97 Respiratory Rate 18 18 Blood Pressure 128/44 L 148/48 H Pulse Oximetry 96 96 Oxygen Delivery 08/25/25 11:32 08/25/25 12:00 08/25/25 12:00 Temperature 97.5 F L 97.7 F Pulse Rate 92 96 95 Respiratory Rate 16 18 Blood Pressure 145/48 H 146/50 H Pulse Oximetry 98 96 Oxygen Delivery 08/25/25 12:59 08/25/25 16:00 08/25/25 20:00 Temperature 97.5 F L Pulse Rate 92 95 94 Respiratory Rate 16 16 Blood Pressure 145/48 H Pulse Oximetry 98 96 Oxygen Delivery Room Air 08/25/25 20:00 08/25/25 20:00 08/25/25 20:08 Temperature 99.5 F Pulse Rate 94 92 94 Respiratory Rate 16 Blood Pressure 130/54 L Pulse Oximetry 96 Oxygen Delivery 08/26/25 00:00 08/26/25 04:00 08/26/25 06:00 Temperature 98.6 F Pulse Rate 88 87 89 Respiratory Rate 16 Blood Pressure 142/73 H Pulse Oximetry 97 Oxygen Delivery 08/26/25 08:27 Temperature Pulse Rate 80 Respiratory Rate Blood Pressure Pulse Oximetry Oxygen Delivery Intake/Output Intake/Output: Intake & Output 08/23/25 08/24/25 08/25/25 08/26/25 23:59 23:59 23:59 23:59 Intake Total 22.5 980 1200 320 Output Total 1700 350 0 Balance 22.5 -720 850 320 Meds/Results Medications: Active Medications Generic Name Dose Route Start Last Admin Trade Name Freq PRN Reason Stop Dose Admin Acetaminophen 500 mg 08/23/25 23:14 Acetaminophen 500 Mg Tablet PO Q6H PRN Pain Rated 1-3 Hydrocodone Bitart/Acetaminophen 1 tab 08/23/25 23:14 08/26/25 08:25 Hydrocodone/Acetaminophen (*Crx) 10-325 Mg Tablet PO 1 tab Q4H PRN Administration Pain Rated 4-6 Amiodarone HCl 100 mg 08/25/25 09:00 08/26/25 08:27 Amiodarone Hcl 100 Mg Tablet PO 100 mg DAILY JEREMIAH Administration Apixaban 2.5 mg 08/24/25 21:00 08/25/25 09:42 Apixaban 2.5 Mg Tablet PO Not Given On Hold: 08/25/25 11:45 Q12HR JEREMIAH Benzonatate 100 mg 08/24/25 09:08 Benzonatate 100 Mg Capsule PO Q6H PRN Cough Fentanyl Citrate 25 mcg 08/24/25 09:10 08/24/25 11:22 Fentanyl Citrate Inj (*Crx) 100 Mcg/2 Ml Vial IV PUSH 25 mcg Q2M PRN Administration Pain Ferrous Sulfate 325 mg 08/24/25 11:00 08/26/25 08:26 Ferrous Sulfate 325 Mg Tablet PO 325 mg DAILY@0800 JEREMIAH Administration Hydromorphone HCl 1 mg 08/24/25 11:13 Hydromorphone Hcl Inj (*Crx) 1 Mg/Ml Syr IV PUSH Q2H PRN Breakthrough Pain Rated 7-10 or NPO Hydromorphone HCl 0.5 mg 08/24/25 11:13 Hydromorphone Hcl Inj (*Crx) 1 Mg/Ml Syr IV PUSH Q2H PRN Breakthrough Pain Rated 4-6 or NPO Melatonin 3 mg 08/24/25 09:08 08/24/25 22:37 Melatonin 3 Mg Tablet PO 3 mg HS PRN Administration Insomnia Morphine Sulfate 2 mg 08/23/25 23:13 08/25/25 23:07 Morphine Sulfate (*Crx) 4 Mg/Ml Inj IV PUSH 2 mg Q2H PRN Administration Pain Rated 7-10 Naloxone HCl 0.1 mg 08/24/25 11:13 Naloxone Hcl 0.4 Mg/Ml Vial IV PUSH Q2M PRN Opiate Reversal Ondansetron HCl 4 mg 08/24/25 11:13 08/24/25 22:02 Ondansetron Inj 4 Mg/2 Ml Vial IV PUSH 4 mg Q4H PRN Administration Nausea And Vomiting Pantoprazole Sodium 40 mg 08/25/25 09:00 08/26/25 08:26 Pantoprazole 40 Mg Tablet PO 40 mg DAILY JEREMIAH Administration Phenyleph/Shark Oil/Min Oil/Petrol 1 applic 08/24/25 21:00 08/25/25 21:00 Phenyleph/Shark Oil/Mo/Petrol Cream 26 Gm RECTAL 1 applic HS JEREMIAH Administration Polyethylene Glycol 17 gm 08/24/25 09:11 Polyethylene Glycol 3350 17 Gm Powd.Pack PO QAM PRN Constipation Polyethylene Glycol 17 gm 08/25/25 09:00 08/26/25 08:24 Polyethylene Glycol 3350 17 Gm Powd.Pack PO 17 gm QAM JEREMIAH Administration Rosuvastatin Calcium 5 mg 08/25/25 09:00 08/25/25 09:40 Rosuvastatin 5 Mg Tablet PO 5 mg Q48HR JEREMIAH Administration Sacubitril/Valsartan 1 tab 08/24/25 11:00 08/26/25 08:26 Sacubitril/Valsartan 24-26 Mg Tablet PO 1 tab Q12HR JEREMIAH Administration Senna/Docusate Sodium 2 tab 08/24/25 17:00 08/26/25 08:24 Senna/Docusate Sodium Tablet PO 2 tab BID JEREMIAH Administration Timolol Maleate 1 drop 08/24/25 09:10 08/26/25 08:28 Timolol Maleate 0.25% Op Soln 5 Ml Bottle EACH EYE 1 drop Q12HR JEREMIAH Administration Radiology Results: ITS Impressions Hip/Pelvis X-Ray 08/23/25 21:38 Impression: 1: Mildly displaced angulated right femoral intertrochanteric fracture. 2: Age-indeterminate fractures right superior and inferior pubic rami. Chest X-Ray 08/23/25 21:41 Impression: 1: Cardiomegaly with mild interstitial edema. Head CT 08/23/25 21:56 IMPRESSION: 1. No acute intracranial abnormality. Cervical Spine CT 08/23/25 22:01 IMPRESSION: 1. No acute abnormality of the cervical spine. Chest/Abdomen/Pelvis/Spine CT 08/23/25 22:05 IMPRESSION: 1. Multiple fractures: Right femoral intertrochanteric fracture with varus angulation, fractures right superior and inferior pubic rami and pubic symphysis, fracture right sacral ala and possible inferior endplate fracture L4, age indeterminate. 2: Small pleural effusions with dependent atelectasis. Intraoperative X-Ray 08/26/25 08:47 IMPRESSION: Right hip internal fixation fluoroscopic images obtained. No radiologist present. See operative/surgical notes for complete evaluation. Labs Labs: Laboratory Results - last 24 hr 08/24/25 08/25/25 08/26/25 05:50 12:52 06:14 WBC 8.7 RBC 3.14 L Hgb 8.6 L 8.7 L Hct 26.9 L 27.4 L MCV 87.3 MCH 27.7 MCHC 31.8 L RDW 20.1 H Plt Count 92 L MPV 10.2 % Immature Plt Fraction 3.6 Sodium 129 L Potassium 4.1 Chloride 102 Carbon Dioxide 23 Anion Gap 4 BUN 12 Creatinine 0.98 Estim Creat Clear Calc 32 Estimated GFR 54 L Glucose 98 Calcium 8.6 Magnesium 1.9 Total Bilirubin 1.1 AST 24 ALT 8 Alkaline Phosphatase 69 Total Protein 5.6 L Albumin 3.1 L Crossmatch See Detail Attestation: I personally reviewed all lab results Quality VTE Prophylaxis VTE prophylaxis: mechanical ordered -Patient's previous records reviewed on admission -ER notes reviewed in detail on admission -discussed all findings and current treatment plan with patient/Family/POA -Consultations reviewed for recommendations -Patient's disposition for safe discharge discussed with manager rn case -radiology imaging, EKG and test results I have personally reviewed and interpreted unless otherwise specified Dictation performed by [employer] direct speech recognition software, therefore kiln fireman variants and typographical errors may occur. Hospitalist MIPS Advance Care Plan I have confirmed that the patient's Advanced Care Plan is present, code status is documented, or surrogate decision maker is listed in patient medical record.: Yes Medication Reconciliation I have utilized all available resources to obtain, update and review the patients current medications (includes all prescriptions, OTC, herbals, cannabis, and nutritional supplements).: Yes The patient is not eligible for med reconciliation; the patient is in a emergent medical situation where delaying treatment would jeopardize the patients health.: No
--- NOTE | 2025-08-26 09:28 | P.CDI_ITS ---
CDI Query Clarification Request Please clarify the status of the patient's anemia, if known. Anemia has been documented, please specify type of anemia if known: * Acute blood loss anemia * Chronic blood loss anemia * Anemia of chronic disease (CKD,neoplasm, other) * Aplastic anemia * Dilutional anemia * Iron Deficiency anemia * Pernicious anemia * Nutritional anemia (e.g., scorbutic anemia) * Other anemia * Unknown/unable to determine (11) Anemia: Qualifiers: Anemia type: unspecified type Qualified Code(s): D64.9 - Anemia, unspecified Code(s): D64.9 - Anemia, unspecified Status: Acute Assessment and Plan: patient reports she does have a history of anemia and was previously taking iron supplements at home but stopped taking them did not feel she needed them patient's hemoglobin 8.0 on admission postop 10 after receiving unit of blood has dropped down to 6.9 which is expected after hip surgery. * gave 1 unit of PRBCs * no evidence of GIB * resume patient's ferrous sulfate * Trend H&H * Transfuse if Hgb <7.0 * hemodynamically stable * Hold Eliquis for now * Patient follows with [facility] outpatient and has been receiving iron transfusions. Surgery on 08/24 Hgb: 08/23: -8.5 08/24 -8.0 08/24 - 10.1 08/25- 6.9 1 unit PRBC <Angelina Hernandez RN - Last Filed: 08/26/25 09:54> Clarified Diagnosis Clarified Diagnosis: Iron deficiency anemia as well as acute blood loss from surgical procedure <Daniella Doss APRN - Last Filed: 08/26/25 10:18>
--- NOTE | 2025-08-26 09:28 | WPDCDIQUERY2 ---
CDI Query Clarification Request Please clarify the status of the patient's anemia, if known. Anemia has been documented, please specify type of anemia if known: Acute blood loss anemia Chronic blood loss anemia Anemia of chronic disease (CKD,neoplasm, other) Aplastic anemia Dilutional anemia Iron Deficiency anemia Pernicious anemia Nutritional anemia (e.g., scorbutic anemia) Other anemia Unknown/unable to determine (11) Anemia: Qualifiers: Anemia type: unspecified type Qualified Code(s): D64.9 - Anemia, unspecified Code(s): D64.9 - Anemia, unspecified Status: Acute Assessment and Plan: patient reports she does have a history of anemia and was previously taking iron supplements at home but stopped taking them did not feel she needed them patient's hemoglobin 8.0 on admission postop 10 after receiving unit of blood has dropped down to 6.9 which is expected after hip surgery. gave 1 unit of PRBCs no evidence of GIB resume patient's ferrous sulfate Trend H&H Transfuse if Hgb <7.0 hemodynamically stable Hold Eliquis for now Patient follows with [facility] outpatient and has been receiving iron transfusions. Surgery on 08/24 Hgb: 08/23: -8.5 08/24 -8.0 08/24 - 10.1 08/25- 6.9 1 unit PRBC <Angelina Hernandez RN - Last Filed: 08/26/25 09:54> Clarified Diagnosis Clarified Diagnosis: Iron deficiency anemia as well as acute blood loss from surgical procedure <Daniella Doss APRN - Last Filed: 08/26/25 10:18>
[2025-08-26] MEDS: ONDANSETRON INJ 4 MG/2 ML VIAL IV PUSH (20:33)
[2025-08-27] VITALS (11 sets, daily range): BP systolic 94–128; BP diastolic 40–58; PULSE 73–96; RESP 18; TEMP 36.5–36.8; O2SAT 96–98
[2025-08-27 06:19] LABS: Hematocrit 26.9 % (37.0-47.0); Hemoglobin 8.3 g/dL (12.0-15.0); Immature Platelet Fraction Pct 3.6 % (0.9-11.2); Mean Corpuscular HGB Conc 30.9 g/dl (32-36); Mean Corpuscular Hemoglobin 27.6 pg (26-34); Mean Corpuscular Volume 89.4 fl (80-100); Platelet Count Result 94 k/mm3 (150-375); Red Blood Count 3.01 M/mm3 (4.2-5.4); White Blood Count 7.2 K/mm3 (4.5-10.0)
[2025-08-27 06:50] LABS: Alanine Aminotransferase 7 U/L (6-35); Albumin Level 2.8 g/dL (3.5-5.1); Alkaline Phosphatase 79 U/L (38-126); Anion Gap 1 mmol/L (4-12); Aspartate Amino Transferase 23 U/L (14-36); Bilirubin,Total 0.7 mg/dL (0.2-1.3); Blood Urea Nitrogen 14 mg/dL (7-17); Calcium 8.4 mg/dL (8.4-10.2); Carbon Dioxide 25 mmol/L (22-30); Chloride 100 mmol/L (98-107); Estimated CRCL calculation 35 ml/min; Estimated Glomerular Filt Rate 59; Glucose 86 mg/dL (65-110); Magnesium 1.9 mg/dL (1.6-2.3); Potassium 4.0 mmol/L (3.4-5.0); Sodium 126 mmol/L (137-145); Total Protein 5.1 g/dL (6.3-8.2)
[2025-08-27] MEDS: ROSUVASTATIN 5 MG TABLET PO (08:53)
[2025-08-27] MEDS: SENNA/DOCUSATE SODIUM TABLET 2 TAB PO (08:53)
[2025-08-27] MEDS: FERROUS SULFATE 325 MG TABLET PO (08:53)
[2025-08-27] MEDS: PANTOPRAZOLE 40 MG TABLET PO (08:53)
[2025-08-27] MEDS: AMIODARONE HCL 100 MG TABLET PO (08:53)
[2025-08-27] MEDS: SACUBITRIL/VALSARTAN 24-26 MG TABLET 1 TAB PO (08:53)
[2025-08-27] MEDS: TIMOLOL MALEATE 0.25% OP SOLN 5 ML BOTTLE 1 DROP EACH EYE ×2 (08:59→22:02)
[2025-08-27] MEDS: APIXABAN 2.5 MG TABLET PO ×2 (09:00→22:02)
[2025-08-27] MEDS: HYDROcodone/acetaminophen (*CRX) 10-325 MG TABLET 1 TAB PO ×2 (09:03→12:33)
[2025-08-27] MEDS: LACTULOSE 20 GM/30 ML UDC PO (09:18)
--- NOTE | 2025-08-27 13:08 | PCPTNOTE ---
Attempted to see patient for PT, however patient declined at this time due to patient using the bathroom and wanted to wait on therapy.
--- NOTE | 2025-08-27 14:36 | P.PNIM_ITS ---
Assessment and Plan Assessment and Plan (1) Closed hip fracture: Code(s): S72.009A - Fracture of unspecified part of neck of unspecified femur, initial encounter for closed fracture Status: Acute Assessment and Plan: patient presented post fall with right hip fracture as well multiple fractures listed below. * ortho consulted and following * IM mary fixation to right hip 08/24/2025 * POD 2 * Changed pain management to scheduled Oxy IR 2.5 TID ella, oxy 5/325 Q4hr PRN 7-10, Tramadol PO 4-6 hopefully this will provide a more theraputic pain management. * bowel regimen * PT/OT weight-bearing as tolerated * Eliquis DVT prophylaxis held due to anemia but will resume 08/27/2025 * SCDs * encourage oral hydration * incentive spirometer while awake * ice gel pads * Compression stocking (2) Closed sacral fracture: Code(s): S32.10XA - Unspecified fracture of sacrum, initial encounter for closed fracture Status: Acute Assessment and Plan: I did speak with neurosurgery regarding L4 endplate fracture and ala sacral fracture who recommended no need for surgical intervention. No need for official neurosurgery consult at this time will re-consult if needed. Will continue with pain management and physical and occupational therapy as tolerated. * pain management * PT/OT * weight-bearing as tolerated (3) Closed fracture of pubic ramus: Code(s): S32.599A - Other specified fracture of unspecified pubis, initial encounter for closed fracture Status: Acute Assessment and Plan: See above * conservative treatment no need for surgical intervention * weight-bearing as tolerated * pain management * PT/OT (4) Closed fracture of symphysis pubis: Code(s): S32.599A - Other specified fracture of unspecified pubis, initial encounter for closed fracture Status: Acute Assessment and Plan: See Above (5) Fall: Code(s): W19.XXXA - Unspecified fall, initial encounter Status: Acute Assessment and Plan: * POD #1 right hip fracture repair * PT/OT * fall precautions (6) HTN (hypertension): Qualifiers: Hypertension type: primary hypertension Qualified Code(s): I10 - Essential (primary) hypertension Code(s): I10 - Essential (primary) hypertension Status: Acute Assessment and Plan: * continue patient's Entresto * monitor BP per unit protocol (7) Heart failure with mid-range ejection fraction: Code(s): I50.22 - Chronic systolic (congestive) heart failure Status: Acute Assessment and Plan: * continue Entresto (8) Paroxysmal atrial fibrillation: Code(s): I48.0 - Paroxysmal atrial fibrillation Status: Acute Assessment and Plan: * continue amiodarone will hold Eliquis for now due to anemia will resume 1 10/28/2024 * heart rate controlled (9) Hyperlipidemia: Code(s): E78.5 - Hyperlipidemia, unspecified Status: Acute Assessment and Plan: * continued atorvastatin (10) Hyponatremia: Code(s): E87.1 - Hypo-osmolality and hyponatremia Status: Acute Assessment and Plan: patient's sodium 128 does have history of chronic hyponatremia likely secondary to trauma * DC fluids * Will monitor trend a need to put on fluid restriction if continues to decrease or add salt tablets * no neurological deficit * Improving 129 (11) Anemia: Qualifiers: Anemia type: unspecified type Qualified Code(s): D64.9 - Anemia, unspecified Code(s): D64.9 - Anemia, unspecified Status: Acute Assessment and Plan: patient reports she does have a history of anemia and was previously taking iron supplements at home but stopped taking them did not feel she needed them patient's hemoglobin 8.0 on admission postop 10 after receiving unit of blood has dropped down to 6.9 which is expected after hip surgery.Anemia secondary to iron deficiency and acute blood loss from surgical procedure. * gave 1 unit of PRBCs * no evidence of GIB * resume patient's ferrous sulfate * Trend H&H * Transfuse if Hgb <7.0 * hemodynamically stable * Hold Eliquis for now * Patient follows with [facility]oc outpatient and has been receiving iron transfusions. Plan Code status: Full code per patient DVT prophylaxis: Eliquis on hold/SCD Stress ulcer prophylaxis: Protonix 40 daily PT/OT notes: PT/OT weight-bearing as tolerated Disposition: patient continues admission to the medical unit postop day 1 from IM mary fixation to the right hip she also has multiple other noted nonsurgical fractures PT and OT recommend SNF plan to discharge to rehab tomorrow if pain managed. Medical Record Review I have reviewed the following patient records and this information was taken into consideration when formulating the assessment and plan.: previous labs, previous ER visits and previous hospitalizations Time Spent With Patient Time with patient: 15 - 25 minutes Subjective Date/time seen: 08/27/25 14:36 Interval history: Patient is 89-year-old female who was admitted for further evaluation and treatment after a fall at home resulting in multiple fractures including closed fracture of the right hip which patient underwent IM mary fixation for. 08/27/2025 Patient still having moderate to severe pain to hip with ambulation, initially was constipated but now with episodes of diarrhea. Patient is concerned going to rehab today do to pain management. Review of Systems Review of Systems: All systems reviewed & are unremarkable except as noted in HPI and below (Subjective) Exam Const: General: comfortable and no acute distress HENMT: Mouth: Yes moist mucous membranes Eyes: Pupils: Equal, round and reactive pupils present Neck: Neck: supple Resp: Effort & Inspection: normal respiratory effort Auscultation: clear to auscultation bilaterally Cardio: Rate: regular rate Rhythm: regular rhythm GI: Inspection: non-distended Auscultation: normal bowel sounds Urinary Catheter: Urinary Catheter: patent and draining and urine clear Neuro: Cranial nerves: Yes Equal, round and reactive pupils present Speech: normal speech Motor exam (neuro): 5/5 motor strength present throughout and Abnormal motor strength present (Pain with movement ) Sensory Exam: normal sensation Extrem: General: normal to inspection and no edema Psych: Mental Status: mental status grossly normal Affect: normal affect Objective Data Vital Signs Vital Signs: Vital Signs - 24 hr 08/26/25 16:00 08/26/25 20:00 08/26/25 20:00 Temperature Pulse Rate 82 76 76 Respiratory Rate 16 Blood Pressure Pulse Oximetry 94 Oxygen Delivery Room Air 08/26/25 20:01 08/26/25 21:00 08/27/25 00:00 Temperature 98.9 F Pulse Rate 78 76 78 Respiratory Rate 16 Blood Pressure 101/57 L Pulse Oximetry 94 Oxygen Delivery 08/27/25 04:00 08/27/25 06:00 08/27/25 08:00 Temperature Pulse Rate 80 96 90 Respiratory Rate Blood Pressure 128/43 L Pulse Oximetry Oxygen Delivery 08/27/25 08:53 08/27/25 12:00 Temperature Pulse Rate 92 77 Respiratory Rate Blood Pressure Pulse Oximetry Oxygen Delivery Intake/Output Intake/Output: Intake & Output 08/24/25 08/25/25 08/26/25 08/27/25 23:59 23:59 23:59 23:59 Intake Total 980 1200 893 630 Output Total 1700 350 0 Balance -720 850 893 630 Meds/Results Medications: Active Medications Generic Name Dose Route Start Last Admin Trade Name Freq PRN Reason Stop Dose Admin Acetaminophen 500 mg 08/23/25 23:14 Acetaminophen 500 Mg Tablet PO Q6H PRN Pain Rated 1-3 Hydrocodone Bitart/Acetaminophen 1 tab 08/23/25 23:14 08/27/25 12:33 Hydrocodone/Acetaminophen (*Crx) 10-325 Mg Tablet PO 1 tab Q4H PRN Administration Pain Rated 4-6 Amiodarone HCl 100 mg 08/25/25 09:00 08/27/25 08:53 Amiodarone Hcl 100 Mg Tablet PO 100 mg DAILY ELLA Administration Apixaban 2.5 mg 08/24/25 21:00 08/27/25 09:00 Apixaban 2.5 Mg Tablet PO 2.5 mg Q12HR ELLA Administration Benzonatate 100 mg 08/24/25 09:08 Benzonatate 100 Mg Capsule PO Q6H PRN Cough Ferrous Sulfate 325 mg 08/24/25 11:00 08/27/25 08:53 Ferrous Sulfate 325 Mg Tablet PO 325 mg DAILY@0800 [facility] Administration Hydromorphone HCl 1 mg 08/24/25 11:13 Hydromorphone Hcl Inj (*Crx) 1 Mg/Ml Syr IV PUSH Q2H PRN Breakthrough Pain Rated 7-10 or NPO Hydromorphone HCl 0.5 mg 08/24/25 11:13 Hydromorphone Hcl Inj (*Crx) 1 Mg/Ml Syr IV PUSH Q2H PRN Breakthrough Pain Rated 4-6 or NPO Lactulose 20 gm 08/27/25 09:10 08/27/25 11:28 Lactulose 20 Gm/30 Ml Udc PO Not Given Q6HR [facility] Melatonin 3 mg 08/24/25 09:08 08/24/25 22:37 Melatonin 3 Mg Tablet PO 3 mg HS PRN Administration Insomnia Morphine Sulfate 2 mg 08/23/25 23:13 08/25/25 23:07 Morphine Sulfate (*Crx) 4 Mg/Ml Inj IV PUSH 2 mg Q2H PRN Administration Pain Rated 7-10 Naloxone HCl 0.1 mg 08/24/25 11:13 Naloxone Hcl 0.4 Mg/Ml Vial IV PUSH Q2M PRN Opiate Reversal Ondansetron HCl 4 mg 08/24/25 11:13 08/26/25 20:33 Ondansetron Inj 4 Mg/2 Ml Vial IV PUSH 4 mg Q4H PRN Administration Nausea And Vomiting Pantoprazole Sodium 40 mg 08/25/25 09:00 08/27/25 08:53 Pantoprazole 40 Mg Tablet PO 40 mg DAILY [facility] Administration Phenyleph/Shark Oil/Min Oil/Petrol 1 applic 08/24/25 21:00 08/26/25 23:21 Phenyleph/Shark Oil/Mo/Petrol Cream 26 Gm RECTAL Not Given HS ELLA Polyethylene Glycol 17 gm 08/24/25 09:11 Polyethylene Glycol 3350 17 Gm Powd.Pack PO QAM PRN Constipation Polyethylene Glycol 17 gm 08/25/25 09:00 08/27/25 08:55 Polyethylene Glycol 3350 17 Gm Powd.Pack PO 17 gm QAM ELLA Administration Rosuvastatin Calcium 5 mg 08/25/25 09:00 08/27/25 08:53 Rosuvastatin 5 Mg Tablet PO 5 mg Q48HR ELLA Administration Sacubitril/Valsartan 1 tab 08/24/25 11:00 08/27/25 08:53 Sacubitril/Valsartan 24-26 Mg Tablet PO 1 tab Q12HR ELLA Administration Senna/Docusate Sodium 2 tab 08/24/25 17:00 08/27/25 08:53 Senna/Docusate Sodium Tablet PO 2 tab BID ELLA Administration Sodium Chloride 500 mg 08/27/25 17:00 Sodium Chloride 500 Mg Tablet PO BID ELLA Timolol Maleate 1 drop 08/24/25 09:10 08/27/25 08:59 Timolol Maleate 0.25% Op Soln 5 Ml Bottle EACH EYE 1 drop Q12HR ELLA Administration Radiology Results: ITS Impressions Hip/Pelvis X-Ray 08/23/25 21:38 Impression: 1: Mildly displaced angulated right femoral intertrochanteric fracture. 2: Age-indeterminate fractures right superior and inferior pubic rami. Chest X-Ray 08/23/25 21:41 Impression: 1: Cardiomegaly with mild interstitial edema. Head CT 08/23/25 21:56 IMPRESSION: 1. No acute intracranial abnormality. Cervical Spine CT 08/23/25 22:01 IMPRESSION: 1. No acute abnormality of the cervical spine. Chest/Abdomen/Pelvis/Spine CT 08/23/25 22:05 IMPRESSION: 1. Multiple fractures: Right femoral intertrochanteric fracture with varus angulation, fractures right superior and inferior pubic rami and pubic symphysis, fracture right sacral ala and possible inferior endplate fracture L4, age indeterminate. 2: Small pleural effusions with dependent atelectasis. Intraoperative X-Ray 08/26/25 08:47 IMPRESSION: Right hip internal fixation fluoroscopic images obtained. No radiologist present. See operative/surgical notes for complete evaluation. Labs Labs: Laboratory Results - last 24 hr 08/27/25 05:34 WBC 7.2 RBC 3.01 L Hgb 8.3 L Hct 26.9 L MCV 89.4 MCH 27.6 MCHC 30.9 L RDW 20.5 H Plt Count 94 L MPV 10.3 % Immature Plt Fraction 3.6 Sodium 126 L Potassium 4.0 Chloride 100 Carbon Dioxide 25 Anion Gap 1 L BUN 14 Creatinine 0.90 Estim Creat Clear Calc 35 Estimated GFR 59 Glucose 86 Calcium 8.4 Magnesium 1.9 Total Bilirubin 0.7 AST 23 ALT 7 Alkaline Phosphatase 79 Total Protein 5.1 L Albumin 2.8 L Quality VTE Prophylaxis VTE prophylaxis: mechanical ordered -Patient's previous records reviewed on admission -ER notes reviewed in detail on admission -discussed all findings and current treatment plan with patient/Family/POA -Consultations reviewed for recommendations -Patient's disposition for safe discharge discussed with case reviewer -radiology imaging, EKG and test results I have personally reviewed and interpreted unless otherwise specified Dictation performed by [employer] direct speech recognition software, therefore transportation job titles variants and typographical errors may occur. Hospitalist MIPS Advance Care Plan I have confirmed that the patient's Advanced Care Plan is present, code status is documented, or surrogate decision maker is listed in patient medical record.: Yes Medication Reconciliation I have utilized all available resources to obtain, update and review the patients current medications (includes all prescriptions, OTC, herbals, cannabis, and nutritional supplements).: Yes The patient is not eligible for med reconciliation; the patient is in a emergent medical situation where delaying treatment would jeopardize the patients health.: No
[2025-08-27] MEDS: SODIUM CHLORIDE 500 MG TABLET PO (17:11)
[2025-08-27] MEDS: oxyCODONE/ACETAMINOPHEN (*CRX) 5-325 MG TABLET 1 TABLET PO (19:45)
[2025-08-27] MEDS: oxyCODONE HCL (*CRX) 2.5 MG TAB IR PO (22:02)
[2025-08-28] VITALS (8 sets, daily range): BP systolic 98–110; BP diastolic 46–50; PULSE 19–81; RESP 16; TEMP 36.2; O2SAT 94–100
[2025-08-28] MEDS: ACETAMINOPHEN 500 MG TABLET PO (02:46)
[2025-08-28] MEDS: oxyCODONE HCL (*CRX) 2.5 MG TAB IR PO ×2 (05:31→13:27)
[2025-08-28 07:03] LABS: Hematocrit 25.4 % (37.0-47.0); Hemoglobin 7.8 g/dL (12.0-15.0); Immature Platelet Fraction Pct 2.9 % (0.9-11.2); Mean Corpuscular HGB Conc 30.7 g/dl (32-36); Mean Corpuscular Hemoglobin 27.8 pg (26-34); Mean Corpuscular Volume 90.4 fl (80-100); Platelet Count Result 100 k/mm3 (150-375); Red Blood Count 2.81 M/mm3 (4.2-5.4); White Blood Count 5.9 K/mm3 (4.5-10.0)
[2025-08-28 07:28] LABS: Alanine Aminotransferase 8 U/L (6-35); Albumin Level 2.6 g/dL (3.5-5.1); Alkaline Phosphatase 70 U/L (38-126); Anion Gap 1 mmol/L (4-12); Aspartate Amino Transferase 20 U/L (14-36); Bilirubin,Total 0.8 mg/dL (0.2-1.3); Blood Urea Nitrogen 15 mg/dL (7-17); Calcium 8.2 mg/dL (8.4-10.2); Carbon Dioxide 26 mmol/L (22-30); Chloride 101 mmol/L (98-107); Estimated CRCL calculation 35 ml/min; Estimated Glomerular Filt Rate 59; Glucose 84 mg/dL (65-110); Magnesium 1.9 mg/dL (1.6-2.3); Potassium 3.9 mmol/L (3.4-5.0); Sodium 128 mmol/L (137-145); Total Protein 4.8 g/dL (6.3-8.2)
--- NOTE | 2025-08-28 09:04 | PCPTNOTE ---
Attempted to see patient for PT, however patient declined. Patient reported she did not want to ambulate or work with therapy at this time due to pain. Patient reported she just wanted to get up to bed side commode with nursing then chair.
[2025-08-28] MEDS: SODIUM CHLORIDE 500 MG TABLET PO ×2 (09:30→17:16)
[2025-08-28] MEDS: PANTOPRAZOLE 40 MG TABLET PO (09:30)
[2025-08-28] MEDS: AMIODARONE HCL 100 MG TABLET PO (09:30)
[2025-08-28] MEDS: SACUBITRIL/VALSARTAN 24-26 MG TABLET 1 TAB PO (09:30)
[2025-08-28] MEDS: APIXABAN 2.5 MG TABLET PO (09:30)
[2025-08-28] MEDS: FERROUS SULFATE 325 MG TABLET PO (09:31)
[2025-08-28] MEDS: SENNA/DOCUSATE SODIUM TABLET 2 TAB PO ×2 (09:31→17:14)
[2025-08-28] MEDS: oxyCODONE/ACETAMINOPHEN (*CRX) 5-325 MG TABLET 1 TABLET PO ×3 (09:31→17:15)
[2025-08-28] MEDS: TIMOLOL MALEATE 0.25% OP SOLN 5 ML BOTTLE 1 DROP EACH EYE (09:36)
--- NOTE | 2025-08-28 14:10 | P.DS_ITS ---
DS: Admitting Diagnosis Discharge Date 08/28/2025 Admitting Diagnosis closed sacral fracture closed hip fracture closed fracture of pubic ramus closed fracture of symphysis pubis Fall DS: Discharge Diagnosis Discharge Diagnosis (1) Closed hip fracture: Code(s): S72.009A - Fracture of unspecified part of neck of unspecified femur, initial encounter for closed fracture Status: Acute (2) Closed sacral fracture: Code(s): S32.10XA - Unspecified fracture of sacrum, initial encounter for closed fracture Status: Acute (3) Closed fracture of pubic ramus: Code(s): S32.599A - Other specified fracture of unspecified pubis, initial encounter for closed fracture Status: Acute (4) Closed fracture of symphysis pubis: Code(s): S32.599A - Other specified fracture of unspecified pubis, initial encounter for closed fracture Status: Acute (5) Fall: Code(s): W19.XXXA - Unspecified fall, initial encounter Status: Acute Assessment and Plan: * POD #1 right hip fracture repair * PT/OT * fall precautions (6) HTN (hypertension): Qualifiers: Hypertension type: primary hypertension Qualified Code(s): I10 - Essential (primary) hypertension Code(s): I10 - Essential (primary) hypertension Status: Acute (7) Heart failure with mid-range ejection fraction: Code(s): I50.22 - Chronic systolic (congestive) heart failure Status: Acute (8) Paroxysmal atrial fibrillation: Code(s): I48.0 - Paroxysmal atrial fibrillation Status: Acute (9) Hyperlipidemia: Code(s): E78.5 - Hyperlipidemia, unspecified Status: Acute (10) Hyponatremia: Code(s): E87.1 - Hypo-osmolality and hyponatremia Status: Acute (11) Anemia: Qualifiers: Anemia type: unspecified type Qualified Code(s): D64.9 - Anemia, unspecified Code(s): D64.9 - Anemia, unspecified Status: Acute DS: Summary Hospital Course Reason for hospitalization: Fall Hospital Course: The patient is an 89-year-old female with a history of paroxysmal atrial fibrillation on apixaban, heart failure with mid-range ejection fraction, hypertension, hyperlipidemia, and prior right hip fracture, who was admitted following a fall at home. She tripped on the stairs and landed on her right side, sustaining a right femoral intertrochanteric fracture with varus angulation, as well as fractures of the right superior and inferior pubic rami, pubic symphysis, and right sacral ala. She denied loss of consciousness or head strike. On admission, she was hemodynamically stable but noted to have anemia (Hgb 8.0 g/dL), mild hyponatremia, and mild acute kidney injury. Imaging confirmed the aforementioned fractures, and head CT was negative for acute intracranial pathology. Orthopedic surgery was consulted, and after discussion of risks and benefits, the patient underwent right hip intramedullary mary fixation on hospital day 1. She received one unit of PRBCs perioperatively for anemia. Neurosurgery was consulted for the sacral and L4 endplate fractures and recommended nonoperative management. The pubic rami and symphysis fractures were also managed conservatively. Postoperatively, the patient was monitored on telemetry, and her pain was managed with a multimodal regimen including scheduled and PRN opioids, acetaminophen, and bowel regimen. Apixaban was held perioperatively due to anemia and surgical risk, and mechanical DVT prophylaxis was used; apixaban was resumed on postoperative day 3. She was also continued on her home medications, including sacubitril-valsartan, amiodarone, rosuvastatin, and ferrous sulfate. The patient participated in physical and occupational therapy with weight- bearing as tolerated. She experienced moderate to severe pain with ambulation but was able to participate in therapy. Her hemoglobin remained stable post- transfusion, and her sodium improved with supportive care. She had no evidence of infection or decompensated heart failure during her stay. Wound care was provided for her surgical site, and there were no postoperative complications. She was ultimately deemed stable for discharge to an acute rehabilitation facility for continued therapy and recovery. At discharge, she was hemod ynamically stable, with pain controlled on oral medications, and her surgical wound was healing appropriately. She was provided with instructions for wound care, medication management, and follow-up with orthopedics and her primary care provider. Time Spent with Patient Time attestation: Total time spent providing and/or coordinating discharge services: 40 Minutes Exam Const: General: comfortable and no acute distress HENMT: Mouth: Yes moist mucous membranes Eyes: Pupils: Equal, round and reactive pupils present Neck: Neck: supple Resp: Effort & Inspection: normal respiratory effort Auscultation: clear to auscultation bilaterally Cardio: Rate: regular rate Rhythm: regular rhythm GI: Inspection: non-distended Auscultation: normal bowel sounds Neuro: Cranial nerves: Yes Equal, round and reactive pupils present Speech: normal speech Motor exam (neuro): 5/5 motor strength present throughout and Abnormal motor strength present (Pain with movement ) Sensory Exam: normal sensation Extrem: General: normal to inspection and no edema Psych: Mental Status: mental status grossly normal Affect: normal affect DS: Data Data Completed and Pending Labs on day of discharge: Labs from last 24 hours 08/28/25 06:47 WBC 5.9 RBC 2.81 L Hgb 7.8 L Hct 25.4 L MCV 90.4 MCH 27.8 MCHC 30.7 L RDW 20.2 H Plt Count 100 L MPV 9.3 % Immature Plt Fraction 2.9 Sodium 128 L Potassium 3.9 Chloride 101 Carbon Dioxide 26 Anion Gap 1 L BUN 15 Creatinine 0.90 Estim Creat Clear Calc 35 Estimated GFR 59 Glucose 84 Calcium 8.2 L Magnesium 1.9 Total Bilirubin 0.8 AST 20 ALT 8 Alkaline Phosphatase 70 Total Protein 4.8 L Albumin 2.6 L Imaging Radiologist's impression: Ordering Physician: Gurpreet Hill DO Date of Service: 08/23/25 Procedure(s): XR hip RT 2V w AP pelvis Accession Number(s): [id number] cc: Gurpreet Hill DO; Yanira, Ashlee CRUZ~ XR hip RT 2V w AP pelvis 08/23/2025 21:33 Indication: Right hip pain after fall Procedure: 3 views right hip Comparison: 01/15/2025 Findings: There is a right femoral intertrochanteric fracture with varus angulation. There are fractures of the right superior and inferior pubic rami. Impression: 1: Mildly displaced angulated right femoral intertrochanteric fracture. 2: Age-indeterminate fractures right superior and inferior pubic rami. Reviewed, dictated and finalized at location [facility]. [facility] Ordering Physician: Gurpreet Hill DO Date of Service: 08/23/25 Procedure(s): XR chest 1V Accession Number(s): [id number] cc: Gurpreet Hill DO; Yanira, Ashlee CRUZ~ XR chest 1V 08/23/2025 21:33 Indication: Status post fall. Pain. Procedure: AP view of the chest Comparison: Comparison to multiple prior studies sequentially, with oldest reviewed study dated 04/02/2024. Findings: Cardiomegaly with mild interstitial edema. Apical pleural thickening bilaterally. No pleural effusion. No pneumothorax. Impression: 1: Cardiomegaly with mild interstitial edema. Reviewed, dictated and finalized at location [facility]. [facility] Ordering Physician: Gurpreet Hill DO Date of Service: 08/23/25 Procedure(s): CT brain wo con Accession Number(s): [id number] cc: Gurpreet Hill DO; Yanira, Ashlee CRUZ~ EXAMINATION: CT brain wo con DATE: 08/23/2025 21:49 INDICATION: Status post fall. Head injury. TECHNIQUE: Computed tomography (CT) of the head was performed without intravenous contrast. The dose-length product was 605.33 mGy-cm. COMPARISON: None FINDINGS: There are scattered mild periventricular and subcortical white matter changes, most likely related to small vessel ischemic disease (microangiopathy). Prominent perivascular space left basal ganglia. No acute hemorrhage, infarction, mass or mass effect. Midline sagittal images demonstrate a normal corpus callosum and craniovertebral junction. No depressed skull fractures. Paranasal sinuses and mastoids are pneumatized. IMPRESSION: 1. No acute intracranial abnormality. Reviewed, dictated and finalized at location [facility]. [facility] Ordering Physician: Gurpreet Hill DO Date of Service: 08/23/25 Procedure(s): CT cervical spine wo con Accession Number(s): [id number] cc: Gurpreet Hill DO; Yanira, Ashlee CRUZ~ EXAMINATION: CT cervical spine wo con DATE: 08/23/2025 21:50 INDICATION: Status post fall. Neck pain. TECHNIQUE: Computed tomography (CT) of the cervical spine was performed without intravenous contrast. The dose-length product was 96 mGy-cm. COMPARISON: None FINDINGS: There is degenerative disc disease and disc narrowing at C4-5, C5-6, C6-7 and C7-T1. There is degenerative anterolisthesis at C4-5 and C7-T1. There is multilevel uncinate and facet hypertrophy throughout the cervical spine. Odontoid process is normal. There is apical pleural thickening/scarring. Spinous processes are normal. No evidence for perched facet. Odontoid process is normal. Craniovertebral junction is normal. No significant paraspinal soft tissue abnormality. IMPRESSION: 1. No acute abnormality of the cervical spine. Reviewed, dictated and finalized at location I. [facility] Ordering Physician: Gurpreet Hill DO Date of Service: 08/23/25 Procedure(s): CT chst ab pel thor lum wo Accession Number(s): [id number] cc: Gurpreet Hill DO; Yanira, Ashlee CRUZ~ EXAMINATION: CT chst ab pel eric lum wo DATE: 08/23/2025 21:51 INDICATION: Status post fall. TECHNIQUE: Computed tomography (CT) of the chest, abdomen, pelvis, thoracic spine and lumbar spine was performed without intravenous contrast. The dose- length product was 388.83 mGy-cm. COMPARISON: None FINDINGS: Small pleural effusions. No thoracic lymphadenopathy. Heart size normal. Dependent atelectasis. No pneumothorax. No endobronchial lesions. The liver, spleen, pancreas, adrenal glands and kidneys are unremarkable. Gallbladder is present. No significant vascular abnormality. No evidence for aneurysm. There is a right femoral intertrochanteric fracture with varus angulation. There are fractures of the right superior, inferior pubic rami and pubic symphysis, likely subacute. There is fracture of the right sacral ala. There is severe lumbar spondylosis with grade 1 degenerative spondylolisthesis at L4-5 secondary to facet hypertrophy. There is levoscoliosis. There is mild compression deformity inferior endplate of L4, age indeterminate. IMPRESSION: 1. Multiple fractures: Right femoral intertrochanteric fracture with varus angulation, fractures right superior and inferior pubic rami and pubic symphysis, fracture right sacral ala and possible inferior endplate fracture L4, age indeterminate. 2: Small pleural effusions with dependent atelectasis. Reviewed, dictated and finalized at location [facility]. [facility] Ordering Physician: Jeremy Gonzalez MD Date of Service: 08/24/25 Procedure(s): XR hip RT min 2V Accession Number(s): [id number] cc: Caitlyn Hebert MD; Yanira, Ashlee CRUZ; Jeremy Gonzalez MD~ Examination: XR hip RT min 2V Clinical History: post op Comparison: 1 day prior Technique: 2 views right hip Findings/impression: 1. Expected appearance and findings after right femoral short IM nail with proximal and distal interlocking screws, across intertrochanteric fracture, with displaced lesser trochanter. Reviewed, dictated and finalized at location [facility]. [facility] Ordering Physician: Carlos Manuel Porter MD Date of Service: 08/31/25 Procedure(s): US venous doppler LE RT Accession Number(s): [id number] cc: Carlos Manuel Porter MD; Yanira, Ashlee CRUZ~ EXAMINATION: US venous doppler LE RT, 08/31/2025 18:00 [facility] HISTORY: pain, swelling Comparison: None Technique: Manley-scale and color Doppler images were attempted of the lower saphenofemoral junction, common femoral vein,superficial femoral vein, proximal deep femoral vein, proximal deep femoral vein, popliteal vein and posterior tibial veins. Findings: Deep Venous System:Normal flow, augmentation and compressibility. No echogenic thrombus identified. The contralateral saphenofemoral junction appears unremarkable. Superficial Venous SystemNo superficial thrombophlebitis. Soft tissues: Soft tissues are unremarkable. Impression: Negative for DVT. Reviewed, dictated and finalized at location P. [facility] Discharge Plan Discharge Attending physician on discharge: Jr Weaver Consulting providers: Daniella Doss; Jeremy Gonzalez; Chung Estrada; Link Tobias; Rasta Nelson; Zhang Weston; Johnson Gross Discharging Clinician: Alison Kumar Patient Disposition: [facility] [place] [facility] Activity: as tolerated Diet: regular Wound Care Instructions: other - see discharge instructions Discharge Instructions: Please schedule a follow up with Dr. Gonzalez to be seen 2 weeks post op Please remove dressing to right hip on 08/31/2025 and leave open to air Weight bearing as tolerated to RLE Patient Instructions: Apixaban (By mouth) Patient Language: Swazi Follow-up/Referrals: Yanira,MD Ashlee [Primary Care Provider] Referral Note: Follow up with your PCP after discharge from acute rehab. Jeremy Gonzalez MD [Physician, Orthopedics] Referral Note: call for an appointment to be seen 2 weeks post op (surgery date 08/24/25) Discharge Medications: New sennosides-docusate sodium [Senokot-S] 8.6-50 mg Tablet 2 tab PO BID Qty: 120 0RF oxycodone 5 mg tablet 2.5 mg PO Q8H Qty: 30 0RF polyethylene glycol 3350 [Miralax] 17 gram Powder In Packet 17 g PO QAM PRN (Reason: Constipation) Qty: 30 0RF polyethylene glycol 3350 [Miralax] 17 gram Powder In Packet 17 g PO QAM Qty: 30 0RF oxycodone-acetaminophen 5-325 mg Tablet 1 tablet PO Q4H PRN (Reason: Pain Rated 7-10) Qty: 30 0RF sodium chloride 1,000 mg tablet,soluble 500 mg PO BID Qty: 30 0RF Continued amiodarone 200 mg tablet 100 mg PO DAILY melatonin 3 mg Tablet 3 mg PO HS PRN (Reason: Insomnia) acetaminophen 500 mg Tablet 1,000 mg PO TID PRN (Reason: Pain (Scale Score 1-3)) hydrocortisone 2.5 % Cream With Perineal Applicator 1 applic RECTAL DAILY PRN (Reason: Hemorrhoids) timolol 0.25 % Drops 1 drp EACH EYE Q12H (DME) [facility] See Rx Instructions .Route Qty: 1 0RF Rx Instructions: As directed Eliquis 2.5 mg tablet 2.5 mg PO Q12H pantoprazole 40 mg tablet,delayed release (DR/EC) 40 mg PO DAILY rosuvastatin 5 mg tablet 5 mg PO .QOD Patient Comments: last taken on 08/23/2025 sacubitril-valsartan 24-26 mg tablet 1 tablet PO BID benzonatate 100 mg Capsule 100 mg PO Q6H PRN (Reason: Cough) Qty: 30 0RF ferrous sulfate [FeroSul] 325 mg (65 mg iron) tablet 325 mg PO DAILY Qty: 30 0RF Discontinued polysaccharide iron complex 150 mg iron capsule 150 mg PO DAILY Date of admission: 08/24/25 05:40 Primary Care Provider: Yanira,Ashlee Admitting Provider: Caitlyn Hebert Attending physician on admission: Alison Kumar Condition: Stable Quality VTE Prophylaxis VTE prophylaxis: mechanical ordered
== END 2025-08-28 19:32 | DRG 956 ==
LOC: ANHED 23:49 → ANH3MEDSUR 08-24 05:46
PROVIDERS: Nurse Practitioner Family; Orthopaedic Surgery; Admitting Provider General Practice; Emergency Provider Student in an Organized Health Care Education/Training Program; PCP Internal Medicine; Visit Provider Nurse Practitioner Adult Health
PROC: 0QS636Z Reposition Right Upper Femur with Intramedullary Internal Fixation Device, Percutaneous Approach (ICD-10-PCS; CPT 27245; principal; 2025-08-24 09:00)
DX: S72.141A Displaced intertrochanteric fracture of right femur, initial encounter for closed fracture (principal); S32.19XA Other fracture of sacrum, initial encounter for closed fracture; S32.048A Other fracture of fourth lumbar vertebra, initial encounter for closed fracture; D62 Acute posthemorrhagic anemia; I50.22 Chronic systolic (congestive) heart failure; E87.1 Hypo-osmolality and hyponatremia; N17.9 Acute kidney failure, unspecified; I11.0 Hypertensive heart disease with heart failure; W10.8XXA Fall (on) (from) other stairs and steps, initial encounter; I44.7 Left bundle-branch block, unspecified; E78.5 Hyperlipidemia, unspecified; I48.0 Paroxysmal atrial fibrillation; Z91.81 History of falling; Z79.01 Long term (current) use of anticoagulants; Z85.72 Personal history of non-Hodgkin lymphomas; Z86.73 Personal history of transient ischemic attack (TIA), and cerebral infarction without residual deficits; D50.9 Iron deficiency anemia, unspecified
CPT/HCPCS: 36415; 36430; 70450; 71045; 71250; 72125; 72128; 72131; 73502; 74176; 80048; 80053; 81001; 82550; 83605; 83735; 85014; 85018; 85025; 85027; 85055; 85610; 85730; 86850; 86900; 86901; 86923; 93005; 96375; 97110; 97116; 97161; 97165; 97530; 97535; 99199; 99285; J0690; A9270; C1713; C1769; G0378; J2004; J2270; J2371; J2405; J2704; J3010; J3290; J7030; J7040; J7050; P9016

== ENCOUNTER 2025-08-31 17:09 | Emergency (ER) | payer MEDICARE, BC, SELFPAY ==
--- NOTE | ~2025-08-31 | CT_ITS ---
EXAMINATION: CT LE RT w con DATE: 08/31/2025 20:27 INDICATION: Right lower limb swelling. TECHNIQUE: Computed tomography (CT) of the right lower limb was performed with 100 mL Omnipaque 350 intravenous contrast. Automated exposure control and iterative reconstruction technique were employed. The dose-length product was 1027.44 mGy-cm. COMPARISON: Right knee radiographs 08/31/2025 FINDINGS: There is an intertrochanteric fracture of proximal right femur. The main distal fracture fragment demonstrates near-anatomic alignment status post reduction internal fixation with antegrade intramedullary mary, femoral head/neck screw, and distal interlocking screw. There is 3.8 cm distraction of the lesser trochanter fracture fragment. There are old healed fractures of right superior and inferior pubic rami. The knee demonstrates severe osteoarthritis of the lateral compartment and moderate osteoarthritis of the medial and patellofemoral compartments. There is a small knee joint effusion. There is a rim-enhancing collection lateral to proximal right femur measuring 1.8 x 3.4 x 4.8 cm, con sistent with subacute hematoma. There are foci of soft tissue gas, consistent with recent surgery. There is diffuse heterogeneous edema. IMPRESSION: 1. Intertrochanteric fracture of proximal right femur status post open reduction internal fixation. 2. Rim-enhancing collection lateral to proximal right femur, consistent with subacute hematoma. Infection is not excluded. 3. Severe right knee osteoarthritis. 4. Small right knee joint effusion. Reviewed, dictated and finalized at location E. R SALES MANAGER IMPRESSION: 1. Intertrochanteric fracture of proximal right femur status post open reductio n internal fixation. 2. Rim-enhancing collection lateral to proximal right femur, consistent with coelho bacute hematoma. Infection is not excluded. 3. Severe right knee osteoarthritis. 4. Small right knee joint effusion.
--- NOTE | ~2025-08-31 | US_ITS ---
EXAMINATION: US venous doppler LE , 08/31/2025 18:00 GREEN INSPECTOR HISTORY: pain, swelling Comparison: None Technique: Manley-scale and color Doppler images were attempted of the lower saphenofemoral junction, common femoral vein,superficial femoral vein, proximal deep femoral vein, proximal deep femoral vein, popliteal vein and posterior tibial veins. Findings: Deep Venous System:Normal flow, augmentation and compressibility. No echogenic thrombus identified. The contralateral saphenofemoral junction appears unremarkable. Superficial Venous SystemNo superficial thrombophlebitis. Soft tissues: Soft tissues are unremarkable. Impression: Negative for DVT. Reviewed, dictated and finalized at location P. N INSPECTOR Impression: Negative for DVT.
--- NOTE | ~2025-08-31 | XR_ITS ---
Examination: XR hip RT min 2V Clinical History: post op comparison Comparison: 08/24/2025 Technique: 2 views right hip Findings/impression: 1. Short IM nail intact. 2. Displaced lesser trochanteric fracture as before. 3. No definite acute abnormality. Reviewed, dictated and finalized at location R. E TESTER
[2025-08-31 17:11] VITALS: BP 145/72; PULSE 88; RESP 17; TEMP 36.6; O2SAT 100
--- NOTE | 2025-08-31 17:36 | ED.GENADULT ---
HPI - General Adult General Chief complaint: Recheck/Abnormal Lab/Rx <Brett Porter MD - Last Filed: 08/31/25 19:57> Stated complaint: post op problem <Brett Porter MD - Last Filed: 08/31/25 19:57> Time Seen by Provider: 08/31/25 17:11 <Brett Porter MD - Last Filed: 08/31/25 19:57> History of Present Illness HPI narrative: patient is 9-year-old female presents emergency department chief complaint right leg pain patient reports she was just in the hospital for a hip fracture had surgery and was discharged to be patient reports that her legs become more swollen particularly in the lower portion of patient also reports having increasing pain in the right hip area <Brett Porter MD - Last Filed: 08/31/25 19:57> Related Data Home medications: Home Medications ?Medication ?Instructions ?Recorded ?Confirmed ?Last Taken ?Type acetaminophen 500 mg tablet 1,000 mg PO TID PRN Pain (Scale 10/21/23 08/28/25 08/24/25 History Score 1-3) amiodarone 200 mg tablet 100 mg PO DAILY 10/21/23 08/28/25 08/24/25 History hydrocortisone 2.5 % topical cream 1 applic RECTAL DAILY PRN 10/21/23 08/28/25 Unknown History with perineal applicator Hemorrhoids melatonin 3 mg tablet 3 mg PO HS PRN Insomnia 10/21/23 08/28/25 08/24/25 History timolol 0.25 % eye drops 1 drp EACH EYE Q12H 10/21/23 08/28/25 08/28/25 History apixaban 2.5 mg tablet (Eliquis) 2.5 mg PO Q12H 08/12/25 08/28/25 08/28/25 History pantoprazole 40 mg tablet,delayed 40 mg PO DAILY 08/12/25 08/28/25 08/28/25 History release rosuvastatin 5 mg tablet 5 mg PO .QOD 08/12/25 08/28/25 08/28/25 History sacubitril 24 mg-valsartan 26 mg 1 tablet PO BID 08/12/25 08/28/25 08/28/25 History tablet <Brett Porter MD - Last Filed: 08/31/25 19:57> Allergies/adverse reactions: Allergies Allergy/AdvReac Type Severity Reaction Status Date / Time Sulfa (Sulfonamide Allergy Severe Swelling Verified 08/28/25 21:28 Antibiotics) of Lip/Tongue/Throat <Brett Porter MD - Last Filed: 08/31/25 19:57> Review of Systems Review of Systems: A 10 system review of systems was completed on the patient and is negative except for what is stated in the HPI. Nursing and ancillary documentation was reviewed. <Brett Porter MD - Last Filed: 08/31/25 19:57> [facility] Past Medical History Medical History: Medical History History of hip fracture right hip Heart failure with mid-range ejection fraction Echocardiogram in October 2023 showed mildly reduced LV systolic function with an EF of 45 to 50% and grade 1 diastolic dysfunction. Transient ischemic attack Chronic anticoagulation Paroxysmal atrial fibrillation Left bundle branch block Hyperlipidemia Hypertension Lymphoma (2020) <Brett Porter MD - Last Filed: 08/31/25 19:57> Surgical History Surgical History: Surgical History History of lymph node biopsy <Brett Porter MD - Last Filed: 08/31/25 19:57> Family History Family History: Family History Sibling Cerebrovascular accident Mother Cardiac abnormality <Brett Porter MD - Last Filed: 08/31/25 19:57> Social History Social History: Social History Social History: Lives home alone with no pets. Surrogate medical decision maker: Annemarie Ortiz, granddaughter. Code status: Full code. Smoking status: Never smoker Second hand tobacco smoke exposure: No Alcohol intake: never Substance use: never Substance use type: does not use Lack of Transportation: No Lack of Food: Never True Current Housing: Decline to Answer Concerned About Future Housing: No Difficulty Paying Gas/Electric Bills: No Difficulty Paying for Meds: No Currently Unemployed: No Education: Bachelor's Degree Difficulty w/ Childcare or Family Care: No Living arrangements: alone Occupation/Education: retired Spiritual care concerns: No <Brett Porter MD - Last Filed: 08/31/25 19:57> Exam Narrative: GENERAL: Well-appearing, well-nourished, and in no acute distress. HEAD: Normocephalic, atraumatic. EYES: PERRLA and EOMI. ENT: Nares clear, no rhinorrhea or epistaxis. Mucous membranes moist. NECK: Supple. CHEST: Clear to auscultation. No respiratory distress. HEART: Regular rate and rhythm. No murmur heard. Normal peripheral pulses. ABDOMEN: Soft, nontender, nondistended, normal active bowel sounds. EXTREMITIES: Normal range of motionThere is significant bruising present to the right lower extremity incision sites are intact. 1+ edema. SKIN: Warm, dry, no rash. NEURO: No focal deficits. Alert and oriented x3. PSYCH: Normal mood and affect. <Brett Porter MD - Last Filed: 08/31/25 19:57> Course Course Emergency Course: Patient care signed over by previous provider pending CT scan and disposition based on results. Patient had a recent ORIF of the proximal right femur with orthopedic doctor Dr. Gonzalez last week. Patient was sent to the ER for evaluation of some postoperative swelling and bruising. Patient is on blood thinners. Ultrasound and CT was done of the right lower extremity. DVT ultrasound unremarkable. Laboratory studies are unchanged with no anemia or white count. She is afebrile without any tachycardia. Unremarkable vital signs. CT scan shows postoperative changes and small postoperative fluid collection with edema in the right lower extremity. No clinical or lab evidence of infection or hematoma. Patient has unremarkable findings otherwise and can be discharged back to her rehab [place] for orthopedic follow-up in clinic. Confirm with Dr. Gonzalez over the phone her orthopedic surgeon who asked for additional two-view x-ray of the hip to compare to prior imaging when he sees her in clinic. Patient will be discharged back to facility at this time with ortho follow up. <Ronald Dias MD - Last Filed: 09/01/25 04:30> Vital Signs Vital signs: Vital Signs Temperature 36.6 C 08/31/25 17:11 Pulse Rate 88 08/31/25 17:11 Respiratory Rate 17 08/31/25 17:11 Blood Pressure 145/72 H 08/31/25 17:11 Pulse Oximetry 100 08/31/25 17:11 Oxygen Delivery Room Air 08/31/25 17:11 Temperature 36.6 C 08/31/25 17:11 Pulse Rate 87 08/31/25 18:24 Respiratory Rate 12 08/31/25 18:24 Blood Pressure 161/56 H 08/31/25 18:24 Pulse Oximetry 96 08/31/25 18:24 Oxygen Delivery Room Air 08/31/25 17:11 <Brett Porter MD - Last Filed: 08/31/25 19:57> Vital Signs Temperature 36.6 C 08/31/25 17:11 Pulse Rate 88 08/31/25 17:11 Respiratory Rate 17 08/31/25 17:11 Blood Pressure 145/72 H 08/31/25 17:11 Pulse Oximetry 100 08/31/25 17:11 Oxygen Delivery Room Air 08/31/25 17:11 Temperature 36.6 C 08/31/25 17:11 Pulse Rate 87 08/31/25 18:24 Respiratory Rate 12 08/31/25 18:24 Blood Pressure 161/56 H 08/31/25 18:24 Pulse Oximetry 96 08/31/25 18:24 Oxygen Delivery Room Air 08/31/25 17:11 <Ronald Dias MD - Last Filed: 09/01/25 04:30> MDM MDM Narrative Medical decision making narrative: venous duplex showed no evidence a DVT laboratory studies showed a white count 8.0 hemoglobin is currently 9.8 electrolytes showed no significant abnormality CT scan is currently pending to evaluate for occult fracture and hematoma I will be signing out care to night provider <Brett Porter MD - Last Filed: 08/31/25 19:57> Differential Diagnosis Differential Diagnosis: DVT, hematoma, <Brett Porter MD - Last Filed: 08/31/25 19:57> Lab Data Result diagrams: 08/31/25 18:26 08/31/25 18:26 <Brett Porter MD - Last Filed: 08/31/25 19:57> Labs: Lab Results 08/31/25 Range/Units 18:26 WBC 8.0 (4.5-10.0) K/mm3 RBC 3.57 L (4.2-5.4) M/mm3 Hgb 9.8 L (12.0-15.0) g/dL Hct 31.9 L (37.0-47.0) % MCV 89.4 (80-100) fl MCH 27.5 (26-34) pg MCHC 30.7 L (32-36) g/dl RDW 20.4 H (11.5-14.5) % Plt Count 164 D (150-375) k/mm3 MPV 9.4 (7.4-10.4) fl Immature Gran % (Auto) 0.9 H (0-0.5) % Neut % (Auto) 57.0 (45.5-73.1) % Lymph % (Auto) 27.5 (18.3-44.2) % [place] % (Auto) 11.2 H (2.6-8.5) % Eos % (Auto) 2.8 (0-4.4) % Baso % (Auto) 0.6 (0.2-1.2) % Lymph # (Auto) 2.19 (0.9-3.2) K/mm3 [place] # (Auto) 0.9 H (0.1-0.6) K/mm3 Eos # (Auto) 0.2 (0-0.3) K/mm3 Baso # (Auto) 0.1 (0.0-0.1) K/mm3 Abs Immat Gran (auto) 0.07 H (0.00-0.031) K/mm3 Absolute Neuts (auto) 4.5 (1.3-6.7) K/mm3 Absolute Nucleated RBC 0.000 (0.0-0.012) K/mm3 Nucleated RBC % 0.0 (0.0-0.2) % Sodium 131 L (137-145) mmol/L Potassium 4.2 (3.4-5.0) mmol/L Chloride 98 (98-107) mmol/L Carbon Dioxide 28 (22-30) mmol/L Anion Gap 5 (4-12) mmol/L BUN 16 (7-17) mg/dL Creatinine 0.98 (0.7-1.0) mg/dL Estim Creat Clear Calc 32 ml/min Estimated GFR 54 L (59 - ) Glucose 91 (65-110) mg/dL Calcium 9.4 (8.4-10.2) mg/dL Total Bilirubin 1.4 H (0.2-1.3) mg/dL AST 33 (14-36) U/L ALT 13 (6-35) U/L Alkaline Phosphatase 102 (38-126) U/L Total Protein 6.6 (6.3-8.2) g/dL Albumin 3.9 (3.5-5.1) g/dL <Brett Porter MD - Last Filed: 08/31/25 19:57> Lab Results 08/31/25 Range/Units 18:26 WBC 8.0 (4.5-10.0) K/mm3 RBC 3.57 L (4.2-5.4) M/mm3 Hgb 9.8 L (12.0-15.0) g/dL Hct 31.9 L (37.0-47.0) % MCV 89.4 (80-100) fl MCH 27.5 (26-34) pg MCHC 30.7 L (32-36) g/dl RDW 20.4 H (11.5-14.5) % Plt Count 164 D (150-375) k/mm3 MPV 9.4 (7.4-10.4) fl Immature Gran % (Auto) 0.9 H (0-0.5) % Neut % (Auto) 57.0 (45.5-73.1) % Lymph % (Auto) 27.5 (18.3-44.2) % [place] % (Auto) 11.2 H (2.6-8.5) % Eos % (Auto) 2.8 (0-4.4) % Baso % (Auto) 0.6 (0.2-1.2) % Lymph # (Auto) 2.19 (0.9-3.2) K/mm3 [place] # (Auto) 0.9 H (0.1-0.6) K/mm3 Eos # (Auto) 0.2 (0-0.3) K/mm3 Baso # (Auto) 0.1 (0.0-0.1) K/mm3 Abs Immat Gran (auto) 0.07 H (0.00-0.031) K/mm3 Absolute Neuts (auto) 4.5 (1.3-6.7) K/mm3 Absolute Nucleated RBC 0.000 (0.0-0.012) K/mm3 Nucleated RBC % 0.0 (0.0-0.2) % Sodium 131 L (137-145) mmol/L Potassium 4.2 (3.4-5.0) mmol/L Chloride 98 (98-107) mmol/L Carbon Dioxide 28 (22-30) mmol/L Anion Gap 5 (4-12) mmol/L BUN 16 (7-17) mg/dL Creatinine 0.98 (0.7-1.0) mg/dL Estim Creat Clear Calc 32 ml/min Estimated GFR 54 L (59 - ) Glucose 91 (65-110) mg/dL Calcium 9.4 (8.4-10.2) mg/dL Total Bilirubin 1.4 H (0.2-1.3) mg/dL AST 33 (14-36) U/L ALT 13 (6-35) U/L Alkaline Phosphatase 102 (38-126) U/L Total Protein 6.6 (6.3-8.2) g/dL Albumin 3.9 (3.5-5.1) g/dL <Ronald Dias MD - Last Filed: 09/01/25 04:30> Imaging Data Radiologist's impression: ITS Impressions Venous Doppler Study 08/31/25 18:43 Impression: Negative for DVT. <Brett Porter MD - Last Filed: 08/31/25 19:57> ITS Impressions Venous Doppler Study 08/31/25 18:43 Impression: Negative for DVT. <Ronald Dias MD - Last Filed: 09/01/25 04:30> Discharge Plan Discharge Clinical Impression: Leg pain, right, S/P ORIF (open reduction internal fixation) fracture <Brett Porter MD - Last Filed: 08/31/25 19:57> Patient Disposition: Still a Patient <Brett Porter MD - Last Filed: 08/31/25 19:57> Condition: Stable <Brett Porter MD - Last Filed: 08/31/25 19:57> Instructions: Leg Pain (ED) <Brett Porter MD - Last Filed: 08/31/25 19:57> Additional Instructions: the venous ultrasound showed no evidence of DVT. CT scan shows small postoperative fluid collection around surgery site. No signs of infection. No fever or white count. Labs unremarkable. No hemoglobin drop. Spoke to your orthopedic doctor who recommended following up in clinic with no other interventions needed at this time besides additional x-rays to compare to prior imaging. Safe to discharge back to [facility]. Continue your care at rehab without any interruption and return with any emergent concerns or worsening symptoms. <Brett Porter MD - Last Filed: 08/31/25 19:57> Patient Language: Korean <Brett Porter MD - Last Filed: 08/31/25 19:57> Prescriptions: No Action amiodarone 200 mg tablet 100 mg PO DAILY melatonin 3 mg Tablet 3 mg PO HS PRN (Reason: Insomnia) acetaminophen 500 mg Tablet 1,000 mg PO TID PRN (Reason: Pain (Scale Score 1-3)) hydrocortisone 2.5 % Cream With Perineal Applicator 1 applic RECTAL DAILY PRN (Reason: Hemorrhoids) timolol 0.25 % Drops 1 drp EACH EYE [facility]H [facility] .Route Qty: 1 0RF Rx Instructions: As directed Eliquis 2.5 mg tablet 2.5 mg PO Q12H pantoprazole 40 mg tablet,delayed release (DR/EC) 40 mg PO DAILY rosuvastatin 5 mg tablet 5 mg PO .QOD Patient Comments: last taken on 08/23/2025 sacubitril-valsartan 24-26 mg tablet 1 tablet PO BID benzonatate 100 mg Capsule 100 mg PO Q6H PRN (Reason: Cough) Qty: 30 0RF ferrous sulfate [FeroSul] 325 mg (65 mg iron) tablet 325 mg PO DAILY Qty: 30 0RF sennosides-docusate sodium [Senokot-S] 8.6-50 mg Tablet 2 tab PO BID Qty: 120 0RF oxycodone 5 mg tablet 2.5 mg PO Q8H Qty: 30 0RF polyethylene glycol 3350 [Miralax] 17 gram Powder In Packet 17 g PO QAM PRN (Reason: Constipation) Qty: 30 0RF polyethylene glycol 3350 [Miralax] 17 gram Powder In Packet 17 g PO QAM Qty: 30 0RF oxycodone-acetaminophen 5-325 mg Tablet 1 tablet PO Q4H PRN (Reason: Pain Rated 7-10) Qty: 30 0RF sodium chloride 1,000 mg tablet,soluble 500 mg PO BID Qty: 30 0RF <Brett Porter MD - Last Filed: 08/31/25 19:57> Follow-up/Referrals: PHYSICIAN NOT ON STAFF,NONSTAFF [Non-Staff] <Brett Porter MD - Last Filed: 08/31/25 19:57> Time of Disposition: 22:19 <Brett Porter MD - Last Filed: 08/31/25 19:57> 22:19 <Ronald Dias MD - Last Filed: 09/01/25 04:30>
[2025-08-31 18:24] VITALS: BP 161/56; PULSE 87; RESP 12; O2SAT 96
[2025-08-31 18:32] LABS: Hematocrit 31.9 % (37.0-47.0); Hemoglobin 9.8 g/dL (12.0-15.0); Immature Granulocyte Percent A 0.9 % (0-0.5); Lymphocytes Absolute Auto 2.19 K/mm3 (0.9-3.2); Mean Corpuscular HGB Conc 30.7 g/dl (32-36); Mean Corpuscular Hemoglobin 27.5 pg (26-34); Mean Corpuscular Volume 89.4 fl (80-100); Nucleated Red Blood Cells Absolute Auto 0.000 K/mm3 (0.0-0.012); Nucleated Red Blood Cells Perc 0.0 % (0.0-0.2); Platelet Count Result 164 k/mm3 (150-375); Red Blood Count 3.57 M/mm3 (4.2-5.4); White Blood Count 8.0 K/mm3 (4.5-10.0)
[2025-08-31 18:43] LABS: Alanine Aminotransferase 13 U/L (6-35); Albumin Level 3.9 g/dL (3.5-5.1); Alkaline Phosphatase 102 U/L (38-126); Anion Gap 5 mmol/L (4-12); Aspartate Amino Transferase 33 U/L (14-36); Bilirubin,Total 1.4 mg/dL (0.2-1.3); Blood Urea Nitrogen 16 mg/dL (7-17); Calcium 9.4 mg/dL (8.4-10.2); Carbon Dioxide 28 mmol/L (22-30); Chloride 98 mmol/L (98-107); Estimated CRCL calculation 32 ml/min; Estimated Glomerular Filt Rate 54; Glucose 91 mg/dL (65-110); Potassium 4.2 mmol/L (3.4-5.0); Sodium 131 mmol/L (137-145); Total Protein 6.6 g/dL (6.3-8.2)
--- NOTE | 2025-08-31 19:03 | PC.NURSE ---
Spoke with Rusty RN at [facility] for update on pt at 1902
[2025-08-31] MEDS: HYDROcodone/acetaminophen (*CRX) 5-325 MG TABLET 1 TAB PO (19:06)
== END 2025-08-31 23:35 ==
PROVIDERS: Emergency Provider Emergency Medicine; PCP Internal Medicine
DX: M79.604 Pain in right leg (principal); Z98.890 Other specified postprocedural states; S72.141D Displaced intertrochanteric fracture of right femur, subsequent encounter for closed fracture with routine healing; I50.9 Heart failure, unspecified; I11.0 Hypertensive heart disease with heart failure; I48.0 Paroxysmal atrial fibrillation; E78.5 Hyperlipidemia, unspecified; Z86.73 Personal history of transient ischemic attack (TIA), and cerebral infarction without residual deficits; Z85.72 Personal history of non-Hodgkin lymphomas; M17.11 Unilateral primary osteoarthritis, right knee; X58.XXXD Exposure to other specified factors, subsequent encounter
CPT/HCPCS: 36415; 51702; 73502; 73701; 80053; 85025; 93971; 99284; A9270; Q9967